=== PATIENT | female | born 1945 | race Caucasian/White ===

== ENCOUNTER 2016-09-27 17:55 | Inpatient (IN) | payer MEDICARE, OTHER ==
[~2016-09-27] VITALS: Ht 162.6 cm; Wt 56.7 kg
[~2016-09-27 17:55] MED LIST: ARIP10TA13 PO; ARIP20TA8 PO; BUPR150T8 PO; CALC-274 PO; CHOL10007 PO; CITA40TA5 PO; CLON1TAB3 PO; COPP2CAP PO; FERR-26 PO; GABA600T2 PO; HYDR-2672 PO; LAMO300T2 PO; LEVO100T5 PO; LEVO100V IV; MIRT30TA3 PO; MIRT30TA6 PO; MULT-35 PO; OMEP40CA5 PO; VANC125C10 PO
--- NOTE | 2016-09-27 21:42 | PHYS DOC ---
Past Medical History Past Medical History: Anxiety, Depression, Hypothyroid Additional Past Medical Histor: bowel obstruction Past Surgical History: Cholecystectomy, Gastric Bypass, Hysterectomy, Tonsillectomy Additional Past Surgical Histo: COLON PERF REPAIN. ADHEASION REPAIR, Alcohol Use: None Drug Use: None Adult General Chief Complaint Chief Complaint: ABDOMINAL PAIN HPI HPI Patient is a 71 year old female who presents with complaint of abdominal pain. Patient states she started getting worsening symptoms earlier today. Patient states that she had a bowel movement approximate 6:00 this morning that was loose. Patient states that since her gastric bypass surgery she has normally had problems with loose stools. Patient states that she normally goes 3-4 times a day but states that she has only had one bowel movement today and is started getting worsening pain. Patient states that her pain is generalized and sharp. Patient is concerned that she may have a bowel obstruction as she has had problems with bowel obstruction in the past. Patient denies any fevers or vomiting currently. Patient has not taken any medications to help with her symptoms. Review of Systems Review of Systems Constitutional: Fatigue, denies fevers [] Eyes: Denies change in visual acuity, redness, or eye pain [] HENT: Denies nasal congestion or sore throat [] Respiratory: Denies cough or shortness of breath [] Cardiovascular: Denies chest pain or edema [] GI: Abdominal pain, denies nausea, vomiting, bloody stools or diarrhea [] : Denies dysuria or hematuria [] Musculoskeletal: Denies back pain or joint pain [] Integument: Denies rash or skin lesions [] Neurologic: Denies headache, focal weakness or sensory changes [] Current Medications Current Medications Current Medications Medications (Trade) Dose Ordered Sig/Sumit Start Time Stop Time Status Last Admin Dose Admin Famotidine (Pepcid) 20 mg 1X ONCE 09/27/16 22:00 09/27/16 22:01 DC 09/27/16 21:54 20 MG Fentanyl Citrate 50 mcg 50 mcg PRN Q15MIN PRN 09/27/16 21:45 09/28/16 01:00 DC 09/27/16 22:52 50 MCG Info (Do NOT chart on this entry -- for MONITORING) 1 each PRN DAILY PRN 09/27/16 22:45 09/29/16 22:44 Iohexol (Omnipaque 240 Mg/ml) 30 ml 1X ONCE 09/27/16 23:00 09/27/16 23:01 DC 09/27/16 23:27 30 ML Ondansetron HCl (Zofran) 4 mg 1X ONCE 09/27/16 22:00 09/27/16 22:01 DC 09/27/16 21:54 4 MG Sodium Chloride (Iv Sodium Chloride 0.9% 1000ml Bag) 1,000 ml @ 1,000 mls/hr Q1H 09/27/16 22:00 09/27/16 22:59 DC 09/27/16 21:55 1,000 MLS/HR Allergies Allergies Allergies Coded Allergies Type Severity Reaction Last Updated Verified hydromorphone Allergy Intermediate Palpitations 10/14/13 Yes rosuvastatin Allergy Mild Nausea and Vomiting 10/14/13 Yes Physical Exam Physical Exam Constitutional: Alert, afebrile, appears in mild to moderate discomfort. [] HENT: Normocephalic, atraumatic, bilateral external ears normal, oropharynx moist, no oral exudates, nose normal. [] Eyes: PERRLA, EOMI, conjunctiva normal, no discharge. [] Neck: Normal range of motion, no tenderness, supple, no stridor. [] Cardiovascular:Heart rate regular rhythm, no murmur [] Lungs & Thorax: Bilateral breath sounds clear to auscultation [] Abdomen: Bowel sounds normal, soft, tenderness to palpation in all 4 quadrants, no masses, no pulsatile masses. [] Skin: Warm, dry, no erythema, no rash. [] Back: No tenderness, no CVA tenderness. [] Extremities: No tenderness, no cyanosis, no clubbing, ROM intact, no edema. [] Neurologic: Alert and oriented X 3, normal motor function, normal sensory function, no focal deficits noted. [] Current Patient Data Vital Signs Vital Signs Date Time Temp Pulse Resp B/P Pulse Ox O2 Delivery O2 Flow Rate FiO2 09/28/16 00:00 79 123/71 96 Room Air 09/27/16 18:38 98.2 20 98.2 Lab Values Laboratory Tests Test 09/27/16 19:55 White Blood Count 11.5x10^3/uL (4.0-11.0) H Red Blood Count 3.59x10^6/uL (3.50-5.40) Hemoglobin 11.5g/dL (12.0-15.5) L Hematocrit 38.1% (36.0-47.0) Mean Corpuscular Volume 106fL (79-100) H Mean Corpuscular Hemoglobin 32pg (25-35) Mean Corpuscular Hemoglobin Concent 30g/dL (31-37) L Red Cell Distribution Width 15.6% (11.5-14.5) H Platelet Count 204x10^3/uL (140-400) Neutrophils (%) (Auto) 89% (31-73) H Lymphocytes (%) (Auto) 7% (24-48) L Monocytes (%) (Auto) 5% (0-9) Eosinophils (%) (Auto) 0% (0-3) Basophils (%) (Auto) 0% (0-3) Neutrophils # (Auto) 10.2x10^3uL (1.8-7.7) H Lymphocytes # (Auto) 0.8x10^3/uL (1.0-4.8) L Monocytes # (Auto) 0.5x10^3/uL (0.0-1.1) Eosinophils # (Auto) 0.0x10^3/uL (0.0-0.7) Basophils # (Auto) 0.0x10^3/uL (0.0-0.2) Segmented Neutrophils % 84% (35-66) H Band Neutrophils % 3% (0-9) Lymphocytes % 8% (24-48) L Monocytes % 4% (0-10) Basophils % 1% (0-3) Platelet Estimate Adequate (ADEQUATE) Hypochromasia Slight Poikilocytosis Slight Anisocytosis Slight Macrocytosis Slight Crenated Cell Present Urine Collection Type Unknown Urine Color Yellow Urine Clarity Clear Urine pH 6.0 Urine Specific [place] 1.020 Urine Protein 30mg/dL (NEG-TRACE) Urine Glucose (UA) Negativemg/dL (NEG) Urine Ketones (Stick) Negativemg/dL (NEG) Urine Blood Negative (NEG) Urine Nitrite Negative (NEG) Urine Bilirubin Negative (NEG) Urine Urobilinogen Dipstick 0.2mg/dL (0.2 mg/dL) Urine Leukocyte Esterase Negative (NEG) Urine RBC 0/HPF (0-2) Urine WBC Occ/HPF (0-4) Urine Squamous Epithelial Cells Few/LPF Urine Amorphous Sediment Present/HPF Urine Bacteria Few/HPF (0-FEW) Urine Mucus Slight/LPF Sodium Level 141mmol/L (136-145) Potassium Level 4.9mmol/L (3.5-5.1) Chloride Level 112mmol/L (98-107) H Carbon Dioxide Level 19mmol/L (21-32) L Anion Gap 10 (6-14) Blood Urea Nitrogen 35mg/dL (7-20) H Creatinine 1.8mg/dL (0.6-1.0) H Estimated GFR (Cockcroft-Gault) 27.8 BUN/Creatinine Ratio 19 (6-20) Glucose Level 122mg/dL (70-99) H Calcium Level 8.6mg/dL (8.5-10.1) Total Bilirubin 0.5mg/dL (0.2-1.0) Aspartate Amino Transferase (AST) 43U/L (15-37) H Alanine Aminotransferase (ALT) 72U/L (14-59) H Alkaline Phosphatase 236U/L (46-116) H Total Protein 7.9g/dL (6.4-8.2) Albumin 4.0g/dL (3.4-5.0) Albumin/Globulin Ratio 1.0 (1.0-1.7) Lipase 92U/L (73-393) Laboratory Tests 09/27/16 19:55 Laboratory Tests 09/27/16 19:55 EKG EKG Not performed [] Radiology/Procedures Radiology/Procedures [facility] [address] [place] [address] IMAGING REPORT Signed PATIENT: BURAK KOCH ACCOUNT: [id number] : 1945 LOCATION: ER AGE: 71 SEX: F EXAM STATUS: REG ER ORD. PHYSICIAN: ANA HOWARD MD REASON: abdominal pain, history of gastric bypass surgery PROCEDURE: CT ABD PEL W/ORAL CONTRST ONLY PROCEDURE CT abdomen pelvis without contrast. HISTORY Severe abdominal pain since this morning. History of bowel obstruction. TECHNIQUE Helical CT imaging of the abdomen and pelvis is performed after oral contrast only due to elevated creatinine. PQRS: One or more the following individualized dose reduction techniques were utilized for the study: 1. Automated exposure control. 2. Adjustment of the mA and/or kV according to patient size. 3. Use of iterative reconstruction technique. COMPARISON CT abdomen pelvis without contrast May 01, 2015. FINDINGS Subcentimeter ground-glass nodules are seen in the medial left lower lobe. There is mild bilateral lower lobe atelectasis. Cardiac size normal. Calcified granulomas in the spleen. Cholecystectomy. Liver homogeneous. No obvious abnormality of the pancreas. Nodular left adrenal gland. No hydronephrosis. Slightly hyperdense small cortical lesion of the left kidney is stable, image 36. The abdominal aortic caliber is normal. Oral contrast distends the distal esophagus, identical to prior study. Postsurgical change of the stomach. Also similar to prior study there is oral contrast in the stomach and in dilated jejunum. Small bowel distal to the oral contrast demonstrates feces sign. A definite point of transition is not seen. Suture material of bowel anastomoses re-demonstrated in the abdomen. The rectosigmoid colon is dilated and fluid and air filled. There is no wall thickening. Anastomosis with the small bowel is not definitively seen. Urinary bladder is normal. Uterus surgically absent. Degenerative spondylosis of L2/L3. IMPRESSION 1. The bowel findings are nearly identical to the prior study. Oral contrast distends the distal esophagus and stomach and proximal small bowel. There is evidence of stasis in small bowel. Rectosigmoid colon is also dilated. There are multiple bowel anastomoses. Bowel obstruction or ileus are considerations. Small-bowel follow through may be useful. 2. Small ground-glass nodules in the medial left lower lobe may be infectious/inflammatory. Electronically signed by: Roberto Martinez MD (Sep 27, 2016 23:55:39) DICTATED and SIGNED BY: ROBERTO MARTINEZ MD DATE: 09/27/16 [id number] CC: ANA HOWARD MD; MICHELLE LILLY ~ [] Course & Med Decision Making Course & Med Decision Making Pertinent Labs and Imaging studies reviewed. (See chart for details) Patient started on IV fluids, fentanyl, and Zofran. Patient's CT scan shows similar appearance to previous episode of bowel ileus. Due to inability to tolerate oral intake, the patient will need to be admitted to the hospital for IV hydration and bowel rest. Patient admitted to Dr. Watson. A consult was placed to Dr. Hendrix of GI to follow patient in hospital. Dragon Disclaimer Dragon Disclaimer This electronic medical record was generated, in whole or in part, using a voice recognition dictation system. Departure Departure Impression: Primary Impression: Ileus Disposition: 09 ADMITTED INPATIENT Admitting Physician: Julián Watson Condition: STABLE Referrals: MICHELLE LILLY (PCP) ANA HOWARD MD Sep 27, 2016 21:42
[2016-09-27 21:49] LABS: BILIRUBIN,URINE NEGATIVE (NEG); GLUCOSE,URINE NEGATIVE (NEG); NITRITE,URINE NEGATIVE (NEG); PROTEIN,URINE 30 mg/dL (NEG-TRACE); UROBILINOGEN,URINE 0.2 mg/dL (0.2 mg/dL)
[2016-09-27 21:51] LABS: BASO % 0 % (0-3); EOS % 0 % (0-3); HEMATOCRIT 38.1 % (36.0-47.0); HEMOGLOBIN 11.5 g/dL (12.0-15.5); LYMPH # 0.8 x10^3/uL (1.0-4.8); LYMPH % 7 % (24-48); MEAN CORPUSCULAR HEMOGLOBIN 32 pg (25-35); MEAN CORPUSCULAR HGB CONC 30 g/dL (31-37); MEAN CORPUSCULAR VOLUME 106 fL (79-100); MONO % 5 % (0-9); NEUT % 89 % (31-73); PLATELET COUNT 204 x10^3/uL (140-400); RED BLOOD COUNT 3.59 x10^6/uL (3.50-5.40); RED CELL DISTRIBUTION WIDTH 15.6 % (11.5-14.5); WHITE BLOOD COUNT 11.5 x10^3/uL (4.0-11.0)
[2016-09-27] MEDS: FENTANYL PF 100 MCG/2 ML VIAL. IV PRN ×2 (21:53→22:52)
[2016-09-27 21:59] LABS: RBC,URINE 0 /HPF (0-2); WBC,URINE OCC /HPF (0-4)
[2016-09-27 22:00] LABS: BACTERIA,URINE FEW /HPF (0-FEW); SQUAMOUS EPITHELIAL CELL,UR FEW /LPF
[2016-09-27] MEDS ORDERED: FAMOTIDINE 20 MG/2 ML VIAL IVP ONE (22:00)
[2016-09-27] MEDS ORDERED: IV NORMAL SALINE 1000ML BAG 1,000 ML IV SCH (22:00)
[2016-09-27] MEDS ORDERED: ONDANSETRON PF 4 MG/2 ML VIAL. IV ONE (22:00)
[2016-09-27 22:06] LABS: CALCIUM 8.6 mg/dL (8.5-10.1); CREATININE 1.8 mg/dL (0.6-1.0); GFR 27.8; POTASSIUM 4.9 mmol/L (3.5-5.1)
[2016-09-27 22:12] LABS: TOTAL BILIRUBIN 0.5 mg/dL (0.2-1.0); TOTAL PROTEIN 7.9 g/dL (6.4-8.2)
[2016-09-27 22:18] LABS: % BASOS 1 % (0-3); ANISOCYTOSIS SLIGHT; CRENATED RBC PRESENT; HYPOCHROMIA SLIGHT; PLT ESTIMATE ADEQUATE (ADEQUATE); POIKILOCYTOSIS SLIGHT
[2016-09-27] MEDS ORDERED: CONTRAST GIVEN MC PRN (22:45)
[2016-09-27] MEDS ORDERED: IOHEXOL 240 MG/ML 50ML VIAL. PO ONE (23:00)
--- NOTE | 2016-09-27 23:56 | RAD ---
PROCEDURE CT abdomen pelvis without contrast. HISTORY Severe abdominal pain since this morning. History of bowel obstruction. TECHNIQUE Helical CT imaging of the abdomen and pelvis is performed after oral contrast only due to elevated creatinine. PQRS: One or more the following individualized dose reduction techniques were utilized for the study: 1. Automated exposure control. 2. Adjustment of the mA and/or kV according to patient size. 3. Use of iterative reconstruction technique. COMPARISON CT abdomen pelvis without contrast May 01, 2015. FINDINGS Subcentimeter ground-glass nodules are seen in the medial left lower lobe. There is mild bilateral lower lobe atelectasis. Cardiac size normal. Calcified granulomas in the spleen. Cholecystectomy. Liver homogeneous. No obvious abnormality of the pancreas. Nodular left adrenal gland. No hydronephrosis. Slightly hyperdense small cortical lesion of the left kidney is stable, image 36. The abdominal aortic caliber is normal. Oral contrast distends the distal esophagus, identical to prior study. Postsurgical change of the stomach. Also similar to prior study there is oral contrast in the stomach and in dilated jejunum. Small bowel distal to the oral contrast demonstrates feces sign. A definite point of transition is not seen. Suture material of bowel anastomoses re-demonstrated in the abdomen. The rectosigmoid colon is dilated and fluid and air filled. There is no wall thickening. Anastomosis with the small bowel is not definitively seen. Urinary bladder is normal. Uterus surgically absent. Degenerative spondylosis of L2/L3. IMPRESSION 1. The bowel findings are nearly identical to the prior study. Oral contrast distends the distal esophagus and stomach and proximal small bowel. There is evidence of stasis in small bowel. Rectosigmoid colon is also dilated. There are multiple bowel anastomoses. Bowel obstruction or ileus are considerations. Small-bowel follow through may be useful. 2. Small ground-glass nodules in the medial left lower lobe may be infectious/inflammatory. Electronically signed by: Roberto Martinez MD (Sep 27, 2016 23:55:39)
[2016-09-28] VITALS (7 sets, daily range): BP systolic 91–151; BP diastolic 55–93
[2016-09-28] MEDS: IV NORMAL SALINE 1000ML BAG 1,000 ML IV SCH ×3 (00:11→18:24)
[2016-09-28] MEDS ORDERED: ONDANSETRON PF 4 MG/2 ML VIAL. IV PRN (00:15)
[2016-09-28] MEDS ORDERED: ONDANSETRON PF 4 MG/2 ML VIAL. IV ONE (00:30)
--- NOTE | 2016-09-28 00:45 | ACF ---
Admission Forms Criteria ABDOMINAL PAIN Clinical Indications for Admission to Inpatient Care (Place 'X' for any and all applicable criteria): Admission is indicated for ANY ONE of the following(1)(2)(3)(4)(5): [X]I. Inpatient admission required rather than observation care (Also use Abdominal Pain: Observation Care, as appropriate) because of ANY ONE of the following: [ ]a) Severe pain requiring acute inpatient management [ ]b) Identification of etiology/finding that requires inpatient care (eg, aortic dissection, free air) [ ]c) Absent bowel sounds with complete ileus(6) [ ]d) Suspected toxic megacolon [ ]e) Severe electrolyte abnormalities requiring inpatient care [ ]f) High fever or infection requiring inpatient admission as indicated by ANY ONE of following(7)(8): [ ] i) Appropriate outpatient or observational care antimicrobial treatment unavailable, not effective, or not feasible [ ] ii) Documented bacteremia [ ] iii) Temperature > 104.9 degrees F (oral) [ ] iv) T >103.1 F (oral) or < 96.8 F(rectal) that does not respond to all emergency treatment measures [X]g) Signs of intestinal obstruction [B] [ ]h) Hemodynamic instability [ ]i) IV fluid to replace significant ongoing losses (greater than 3 L/m2 per day) (12)(13) [ ]j) Percutaneous or open drainage (eg, abscess, biliary tract ) procedures [ ]k) Parenteral nutrition regimen that must be implemented on inpatient basis [ ]l) Other condition,treatment or monitoring requiring inpatient admission. [ ]II. Peritoneal signs present [ ]III. Surgery needed that cannot be performed on an ambulatory basis. [ ]IV. Evaluation requires patient to not eat or drink for extended period ( eg, more than 24 hours). [ ]V. Contraindications and/or Inappropriate clinical situations for Observational Care in patients with abdominal pain, when ANY ONE of the following is required: [ ]a) Thorough evaluation is required to prevent catastrophic events due to delays in diagnosing (e.g.Mesenteric ischemia) 1,3 [ ]b) Patient with severe pathology or with chronic symptoms unlikely to improve in the ED stay (3) [ ]. General contraindications and/or Inappropriate clinical situations for Observational Care in patients with abdominal pain, when ANY ONE of the following is required: [ ]a) Prediction of prolongation of LOS based on ANY ONE of the following may be considered as a contraindication for observational care 2, 3, 4, 5, 6, 7, 8, 9, 10, 11 [ ]i) Age > 65 yrs. [ ]ii) Patient arriving by ambulance [ ]iii) Patient with high acuity [ ]iv) Patient requiring vital sign monitoring [ ]v) Patient on IV medication [ ]b) Systolic blood pressures 180mmHg 3,12 [ ]c) Patient with altered mental status including delirium and other alteration of consciousness, (3) [ ]d) Patient whose discharge disposition will be to a prison home or rehabilitation home should not be managed in Emergency Department Observation Unit. CMS rule requires 3 days hospital stay before such placement.3,13 [ ]e) Patient with failure to thrive due to broad array of etiologies 3,16,17 [ ]f) Inability to ambulate 3,14 Extended stay beyond goal length of stay may be needed for(2)(3): [ ]a) Persistent abdominal pain with suspected intra-abdominal process [ ]b) Diagnosed condition requiring continued stay (e.g., pancreatitis, complicated diverticulitis) [ ]c) Surgery (e.g., colectomy) The original [facility] content created by [employer] has been revised. The portions of the content which have been revised are identified through the use of italic text or in bold, and [facility] [employer] has neither reviewed nor approved the modified material.All other unmodified content is copyright [employer]. Please see references footnoted in the original [facility] edition 2016 Admission Criteria Met?: Yes CARLY RODRIGUEZ Sep 28, 2016 00:45
[2016-09-28] MEDS: FENTANYL PF 100 MCG/2 ML VIAL. IV PRN ×2 (00:58→05:13)
[2016-09-28] MEDS: CLONAZEPAM 1 MG TABLET. PO SCH ×3 (02:29→22:43)
[2016-09-28] MEDS: MIRTAZAPINE 15 MG TABLET PO SCH ×2 (02:29→22:44)
[2016-09-28] MEDS: GABAPENTIN 400 MG CAPSULE. PO SCH ×2 (02:29→22:43)
--- NOTE | 2016-09-28 07:56 | RAD ---
Acute abdominal series to include a PA chest radiograph 09/27/2016 Clinical History: Severe abdominal pain since earlier in the day. A PA digital radiograph of the chest was obtained. Supine and erect AP digital radiographs of the abdomen/pelvis were obtained. Comparison study is dated 05/02/2015. Surgical clips are seen within the upper abdomen and right axilla. The cardiac silhouette is normal in size. The thoracic aorta is minimally tortuous. No acute pulmonary infiltrate is seen. No pleural effusion or pneumothorax is noted. Mild air distention of both small and large bowel loops is seen. These findings are nonspecific. A surgical clip is seen within the pelvis. Calcifications are seen within the pelvis consistent with phleboliths. There is no evidence of free air. Degenerative changes are seen involving the thoracic and lumbar spine and both hips. Impression: Nonspecific bowel gas pattern.
--- NOTE | 2016-09-28 08:51 | PDOC2 ---
GI CONSULT Reason For Consult: Ileus HPI: HPI: 71 y/o female w/ complicated GI/surgical history including Radha-en-Y gastric bypass, laparotomy x 2 for SBO, laparotomy for colon perforation (w/ ileosigmoid anastomosis), cholecystectomy, hysterectomy, PATRIZIA, and previous PEG placement by radiology at [facility] (denies J tube). Has been doing well for a little over a year w/o obstructive symptoms and has done well w/o PEG tube. Awoke yesterday morning around 6:00 a.m. w/ upper abdominal pain. Normally has 4-5 loose stools daily, had ~2 yesterday. Pain worsened/spread diffusely, similar to previous bowel obstructions, came to ER and was admitted. Has nausea w/o vomiting. Pain currently improved, about 3/10. No flatus/stool today. Additional h/o GERD controlled w/ PPI BID. No NSAID use. Last EGD and colonoscopy within 1 year at w/ some sort of dilation performed (note h/o stomal narrowing w/ dilation on last EGD in our records by Dr. Sauer). Labs: WBC 11.5, Hgb 11.5, Cr 1.8, AST 43, ALT 72, Alk Phos 236. CT A/P suggestive of bowel obstruction vs ileus. PMH: PMH: GERD, C Diff, hypothyroidism, melanoma, anxiety/depression, Radha-en-Y gastric bypass, stomal ulcer/narrowing, laparotomy x 2 for SBO, laparotomy for colon perforation, PEG placement/removal, cholecystectomy, hysterectomy, adhesiolysis , tonsillectomy FH: Family History: No pertinent hx Social History: Smoke: No ALCOHOL: none Drugs: None ROS: GEN: Denies fevers, chills, sweats HEENT: Denies blurred vision, sore throat CV: Denies chest pain RESP: Denies shortness of air, cough GI: Per HPI : Denies hematuria, dysuria ENDO: Denies weight changes NEURO: Denies confusion, dizziness MSK: Denies weakness, joint pain/swelling SKIN: Denies jaundice, pruritus VItals: Vitals: Vital Signs Date Time Temp Pulse Resp B/P Pulse Ox O2 Delivery O2 Flow Rate FiO2 09/28/16 07:00 98.2 72 16 134/78 96 Room Air 98.2 Labs: Labs: Laboratory Tests Test 09/27/16 19:55 White Blood Count 11.5x10^3/uL (4.0-11.0) Red Blood Count 3.59x10^6/uL (3.50-5.40) Hemoglobin 11.5g/dL (12.0-15.5) Hematocrit 38.1% (36.0-47.0) Mean Corpuscular Volume 106fL (79-100) Mean Corpuscular Hemoglobin 32pg (25-35) Mean Corpuscular Hemoglobin Concent 30g/dL (31-37) Red Cell Distribution Width 15.6% (11.5-14.5) Platelet Count 204x10^3/uL (140-400) Neutrophils (%) (Auto) 89% (31-73) Lymphocytes (%) (Auto) 7% (24-48) Monocytes (%) (Auto) 5% (0-9) Eosinophils (%) (Auto) 0% (0-3) Basophils (%) (Auto) 0% (0-3) Neutrophils # (Auto) 10.2x10^3uL (1.8-7.7) Lymphocytes # (Auto) 0.8x10^3/uL (1.0-4.8) Monocytes # (Auto) 0.5x10^3/uL (0.0-1.1) Eosinophils # (Auto) 0.0x10^3/uL (0.0-0.7) Basophils # (Auto) 0.0x10^3/uL (0.0-0.2) Segmented Neutrophils % 84% (35-66) Band Neutrophils % 3% (0-9) Lymphocytes % 8% (24-48) Monocytes % 4% (0-10) Basophils % 1% (0-3) Platelet Estimate Adequate (ADEQUATE) Hypochromasia Slight Poikilocytosis Slight Anisocytosis Slight Macrocytosis Slight Crenated Cell Present Urine Collection Type Unknown Urine Color Yellow Urine Clarity Clear Urine pH 6.0 Urine Specific [place] 1.020 Urine Protein 30mg/dL (NEG-TRACE) Urine Glucose (UA) Negativemg/dL (NEG) Urine Ketones (Stick) Negativemg/dL (NEG) Urine Blood Negative (NEG) Urine Nitrite Negative (NEG) Urine Bilirubin Negative (NEG) Urine Urobilinogen Dipstick 0.2mg/dL (0.2 mg/dL) Urine Leukocyte Esterase Negative (NEG) Urine RBC 0/HPF (0-2) Urine WBC Occ/HPF (0-4) Urine Squamous Epithelial Cells Few/LPF Urine Amorphous Sediment Present/HPF Urine Bacteria Few/HPF (0-FEW) Urine Mucus Slight/LPF Sodium Level 141mmol/L (136-145) Potassium Level 4.9mmol/L (3.5-5.1) Chloride Level 112mmol/L (98-107) Carbon Dioxide Level 19mmol/L (21-32) Anion Gap 10 (6-14) Blood Urea Nitrogen 35mg/dL (7-20) Creatinine 1.8mg/dL (0.6-1.0) Estimated GFR (Cockcroft-Gault) 27.8 BUN/Creatinine Ratio 19 (6-20) Glucose Level 122mg/dL (70-99) Calcium Level 8.6mg/dL (8.5-10.1) Total Bilirubin 0.5mg/dL (0.2-1.0) Aspartate Amino Transf (AST/SGOT) 43U/L (15-37) Alanine Aminotransferase (ALT/SGPT) 72U/L (14-59) Alkaline Phosphatase 236U/L (46-116) Total Protein 7.9g/dL (6.4-8.2) Albumin 4.0g/dL (3.4-5.0) Albumin/Globulin Ratio 1.0 (1.0-1.7) Lipase 92U/L (73-393) Allergies: Coded Allergies: hydromorphone (Verified Allergy, Intermediate, Palpitations, 10/14/13) rosuvastatin (Verified Allergy, Mild, Nausea and Vomiting, 10/14/13) Medications: Current Medications Medications (Trade) Dose Ordered Sig/Sumit Route PRN Reason Start Time Stop Time Status Last Admin Dose Admin Fentanyl Citrate 50 mcg 50 mcg PRN Q15MIN PRN IV PAIN GREATER THAN 3/10 09/27/16 21:45 09/28/16 01:00 DC 09/27/16 22:52 Sodium Chloride (Iv Sodium Chloride 0.9% 1000ml Bag) 1,000 ml @ 1,000 mls/hr Q1H IV 09/27/16 22:00 09/27/16 22:59 DC 09/27/16 21:55 Ondansetron HCl (Zofran) 4 mg 1X ONCE IV 09/27/16 22:00 09/27/16 22:01 DC 09/27/16 21:54 Famotidine (Pepcid) 20 mg 1X ONCE IVP 09/27/16 22:00 09/27/16 22:01 DC 09/27/16 21:54 Iohexol (Omnipaque 240 Mg/ml) 30 ml 1X ONCE PO 09/27/16 23:00 09/27/16 23:01 DC 09/27/16 23:27 Ondansetron HCl (Zofran) 4 mg 1X ONCE IV 09/28/16 00:30 09/28/16 00:31 DC 09/28/16 00:41 Fentanyl Citrate 50 mcg 50 mcg PRN Q2HR PRN IV SEVERE PAIN 09/28/16 00:15 09/29/16 00:14 09/28/16 05:13 Sodium Chloride (Iv Sodium Chloride 0.9% 1000ml Bag) 1,000 ml @ 100 mls/hr Q10H IV 09/28/16 00:11 09/29/16 00:10 09/28/16 05:06 Clonazepam (Klonopin) 1 mg BID PO 09/28/16 02:30 09/28/16 02:29 Gabapentin (Neurontin) 1,200 mg QHS PO 09/28/16 02:30 09/28/16 02:29 Imaging: Imaging: Acute Abd Series Impression: Nonspecific bowel gas pattern. CT A/P w/ oral contrast IMPRESSION 1. The bowel findings are nearly identical to the prior study. Oral contrast distends the distal esophagus and stomach and proximal small bowel. There is evidence of stasis in small bowel. Rectosigmoid colon is also dilated. There are multiple bowel anastomoses. Bowel obstruction or ileus are considerations. Small-bowel follow through may be useful. 2. Small ground-glass nodules in the medial left lower lobe may be infectious/ inflammatory. PE: GEN: NAD HEENT: Atraumatic, PERRL LUNGS: CTAB HEART: RRR +murm ABD: diffusely tender, ?BS EXTREMITY: No edema SKIN: No rashes, no jaundice NEURO/PSYCH: A & O 3 A/P: A/P: Abd pain, nausea -sudden onset yesterday morning, similar to previous bowel obstructions -CT: ileus vs obstruction H/o multiple abd surgeries -Radha-en-Y gastric bypass, laparotomies for SBOs, laparotomy for colon perforation w/ ileosigmoid anastomosis, previous PEG placement -additionally cholecystectomy, hysterectomy, PATRIZIA GERD -controlled w/ BID PPI, last EGD at within 1 year w/ dilation CRC screen -last colonoscopy @ within 1 year -- NPO. NG tube if needed. Other per Dr. Hendrix. ALEK DUNCAN Sep 28, 2016 08:51
[2016-09-28] MEDS: PANTOPRAZOLE IV PUSH 40 MG VIAL. IVP SCH ×2 (11:20→22:47)
--- NOTE | 2016-09-28 13:10 | HP ---
ADMIT DATE: 09/28/2016 CHIEF COMPLAINT: Abdominal pain. HISTORY OF PRESENT ILLNESS: The patient is a pleasant, 71-year-old female, who has had multiple abdominal surgeries. Her biggest surgery was gastric bypass, since then she has had chronic issues with intermittent small-bowel obstructions. Once again, she presents with abdominal pain. Imaging studies are showing an ileus versus small-bowel obstruction. She has been admitted to the medical floor. PAST MEDICAL HISTORY: Previous obesity, but she has had gastric bypass, chronic pain; GERD and neuropathy. ALLERGIES: HYDROMORPHONE AND ROSUVASTATIN. FAMILY HISTORY: Coronary artery disease. SOCIAL HISTORY: She does not drink, smoke or take drugs. MEDICATIONS: Reviewed, please refer to the MRAD. REVIEW OF SYSTEMS: GENERAL: No history of weight change, weakness or fevers. SKIN: No bruising, hair changes or rashes. EYES: No blurred, double or loss of vision. NOSE AND THROAT: No history of nosebleeds, hoarseness or sore throat. HEART: No history of palpitations, chest pain or shortness of breath on exertion. LUNGS: Denies cough, hemoptysis, wheezing or shortness of breath. GASTROINTESTINAL: She complains of abdominal pain, although it is little better today. GENITOURINARY: No history of frequency, urgency, hesitancy or nocturia. NEUROLOGIC: Denies history of numbness, tingling, tremor or weakness. PSYCHIATRIC: No history of panic, anxiety or depression. ENDOCRINE: No history of heat or cold intolerance, polyuria or polydipsia. EXTREMITIES: Denies muscle weakness, joint pain, pain on walking or stiffness. PHYSICAL EXAMINATION: VITAL SIGNS: Temperature afebrile, pulse 68, respirations 18, blood pressure 120/74. GENERAL: She is alert, cooperative. HEART: Normal S1, S2. LUNGS: Clear. ABDOMEN: Soft, positive bowel sounds, a little tender in the epigastrium. There are multiple scars from previous surgeries. ENDOCRINE: No thyromegaly. LYMPHATICS: No cervical nodes. HEMATOPOIETIC: No bruising. LABORATORY DATA: White count 11, hemoglobin 11, platelets 204. Sodium 141, potassium 4.9, chloride 112, bicarbonate 19, BUN 35, creatinine 1.8, glucose 122, alkaline phosphatase little high at 236, ALT 72, AST 43. ASSESSMENT AND PLAN: Ileus versus small-bowel obstruction in a middle-aged female, who has had gastric bypass and multiple other surgeries, for now given IV fluids. Cardiac monitoring, p.chayito Valentin, we will try to continue her home meds if she can tolerate ____ n.p.o. except for ice chips, PT, OT consult GI ____. Prognosis guarded. MARYANN DUBOIS DO DR: TOYIN/chris JOB#: [id number] / [id number]
--- NOTE | 2016-09-28 15:36 | PDOC2 ---
CONSULT Date of Consult Date of Consult DATE: 09/28/16 TIME: 15:30 Reason for Consult Reason for Consult: abd pain Identification/Chief Complaint Chief Complaint abd pain Source Source: Patient History of Present Illness Reason for Visit: 71 yo female developed epigastric pain yesterday which became diffuse and worse. Denies vomiting but nausea. Usually she has 4-5 BMs per day but only 2 yesterday. She felt bloated and abd was firm. She states she feels much better now without pain and abd is no longer firm. She has had 2 large BM's in the last 3 hours. Past Medical History Cardiovascular: No pertinent hx Pulmonary: No pertinent hx GI: Gastritis Heme/Onc: No pertinent hx Hepatobiliary: No pertinent hx Psych: No pertinent hx Rheumatologic: No pertinent hx Infectious disease: No pertinent hx ENT: No pertinent hx Renal/: No pertinent hx Endocrine: No pertinent hx Dermatology: No pertinent hx Past Surgical History Past Surgical History: Other (gastric by pass, multiple surgery for SBO) Family History Family History: No Significant Social History No ALCOHOL: none Drugs: None Lives: with Family Current Problem List Problem List Problems Medical Problems: (1) Ileus Status: Acute Current Medications Current Medications Current Medications Fentanyl Citrate 50 mcg 50 mcg PRN Q15MIN PRN IV PAIN GREATER THAN 3/10 Last administered on 09/27/16 22:52; Start 09/27/16 at 21:45; Stop 09/28/16 at 01:00 ; Status DC Sodium Chloride (Iv Sodium Chloride 0.9% 1000ml Bag) 1,000 ml @ 1,000 mls/hr Q1H IV Last administered on 09/27/16 21:55; Start 09/27/16 at 22:00; Stop 06/03 at 22:59; Status DC Ondansetron HCl (Zofran) 4 mg 1X ONCE IV Last administered on 09/27/16 21:54 ; Start 09/27/16 at 22:00; Stop 09/27/16 at 22:01; Status DC Famotidine (Pepcid) 20 mg 1X ONCE IVP Last administered on 09/27/16 21:54; Start 09/27/16 at 22:00; Stop 09/27/16 at 22:01; Status DC Iohexol (Omnipaque 240 Mg/ml) 30 ml 1X ONCE PO Last administered on 09/27/16 23:27; Start 09/27/16 at 23:00; Stop 09/27/16 at 23:01; Status DC Info (Do NOT chart on this entry -- for MONITORING) 1 each PRN DAILY PRN MC SEE COMMENTS; Start 09/27/16 at 22:45; Stop 09/29/16 at 22:44 Ondansetron HCl (Zofran) 4 mg 1X ONCE IV Last administered on 09/28/16 00:41 ; Start 09/28/16 at 00:30; Stop 09/28/16 at 00:31; Status DC Ondansetron HCl (Zofran) 4 mg PRN Q8HRS PRN IV NAUSEA/VOMITING; Start 09/28/16 at 00:15; Stop 09/29/16 at 00:14 Fentanyl Citrate 50 mcg 50 mcg PRN Q2HR PRN IV SEVERE PAIN Last administered on 09/28/16 05:13; Start 09/28/16 at 00:15; Stop 09/29/16 at 00:14 Sodium Chloride (Iv Sodium Chloride 0.9% 1000ml Bag) 1,000 ml @ 100 mls/hr Q10H IV Last administered on 09/28/16 05:06; Start 09/28/16 at 00:11; Stop at 00:10 Clonazepam (Klonopin) 1 mg BID PO Last administered on 09/28/16 09:36; Start 09/28/16 at 02:30 Gabapentin (Neurontin) 1,200 mg QHS PO Last administered on 09/28/16 02:29; Start 09/28/16 at 02:30 Mirtazapine (Remeron) 30 mg QHS PO ; Start 09/28/16 at 02:30 Pantoprazole Sodium (Protonix Vial) 40 mg BID IVP Last administered on 11:20; Start 09/28/16 at 10:00 Active Scripts Active Reported Levothyroxine Sodium 100 Mcg Tablet 100 Mcg PO DAILYAC Abilify (Aripiprazole) 10 Mg Tablet 1 Tab PO HS Wellbutrin Sr (Bupropion Hcl) 150 Mg Tablet.er 150 Mg PO DAILY Omeprazole 40 Mg Capsule.dr 40 Mg PO BID Gabapentin 600 Mg Tablet 1,200 Mg PO BID Mirtazapine 30 Mg Tablet 30 Mg PO HS Clonazepam 1 Mg Tablet 1 Mg PO BID Citalopram Hbr (Citalopram Hydrobromide) 40 Mg Tablet 40 Mg PO DAILY Allergies Allergies: Coded Allergies: hydromorphone (Verified Allergy, Intermediate, Palpitations, 10/14/13) rosuvastatin (Verified Allergy, Mild, Nausea and Vomiting, 10/14/13) ROS Gastrointestinal: Yes Abdominal Pain, Yes Nausea Physical Exam General: Alert, Oriented X3, Cooperative, No acute distress HEENT: Atraumatic, PERRLA, EOMI Lungs: Clear to auscultation, Normal air movement Heart: Regular rate, No murmurs Abdomen: Normal bowel sounds, Soft, No tenderness Extremities: No edema Skin: No significant lesion Neuro: Normal speech Vitals VITALS Vital Signs Date Time Temp Pulse Resp B/P Pulse Ox O2 Delivery O2 Flow Rate FiO2 09/28/16 10:56 98.6 73 16 103/60 96 Room Air 98.6 Labs Labs Laboratory Tests Test 09/27/16 19:55 White Blood Count 11.5x10^3/uL (4.0-11.0) Red Blood Count 3.59x10^6/uL (3.50-5.40) Hemoglobin 11.5g/dL (12.0-15.5) Hematocrit 38.1% (36.0-47.0) Mean Corpuscular Volume 106fL (79-100) Mean Corpuscular Hemoglobin 32pg (25-35) Mean Corpuscular Hemoglobin Concent 30g/dL (31-37) Red Cell Distribution Width 15.6% (11.5-14.5) Platelet Count 204x10^3/uL (140-400) Neutrophils (%) (Auto) 89% (31-73) Lymphocytes (%) (Auto) 7% (24-48) Monocytes (%) (Auto) 5% (0-9) Eosinophils (%) (Auto) 0% (0-3) Basophils (%) (Auto) 0% (0-3) Neutrophils # (Auto) 10.2x10^3uL (1.8-7.7) Lymphocytes # (Auto) 0.8x10^3/uL (1.0-4.8) Monocytes # (Auto) 0.5x10^3/uL (0.0-1.1) Eosinophils # (Auto) 0.0x10^3/uL (0.0-0.7) Basophils # (Auto) 0.0x10^3/uL (0.0-0.2) Segmented Neutrophils % 84% (35-66) Band Neutrophils % 3% (0-9) Lymphocytes % 8% (24-48) Monocytes % 4% (0-10) Basophils % 1% (0-3) Platelet Estimate Adequate (ADEQUATE) Hypochromasia Slight Poikilocytosis Slight Anisocytosis Slight Macrocytosis Slight Crenated Cell Present Urine Collection Type Unknown Urine Color Yellow Urine Clarity Clear Urine pH 6.0 Urine Specific [place] 1.020 Urine Protein 30mg/dL (NEG-TRACE) Urine Glucose (UA) Negativemg/dL (NEG) Urine Ketones (Stick) Negativemg/dL (NEG) Urine Blood Negative (NEG) Urine Nitrite Negative (NEG) Urine Bilirubin Negative (NEG) Urine Urobilinogen Dipstick 0.2mg/dL (0.2 mg/dL) Urine Leukocyte Esterase Negative (NEG) Urine RBC 0/HPF (0-2) Urine WBC Occ/HPF (0-4) Urine Squamous Epithelial Cells Few/LPF Urine Amorphous Sediment Present/HPF Urine Bacteria Few/HPF (0-FEW) Urine Mucus Slight/LPF Sodium Level 141mmol/L (136-145) Potassium Level 4.9mmol/L (3.5-5.1) Chloride Level 112mmol/L (98-107) Carbon Dioxide Level 19mmol/L (21-32) Anion Gap 10 (6-14) Blood Urea Nitrogen 35mg/dL (7-20) Creatinine 1.8mg/dL (0.6-1.0) Estimated GFR (Cockcroft-Gault) 27.8 BUN/Creatinine Ratio 19 (6-20) Glucose Level 122mg/dL (70-99) Calcium Level 8.6mg/dL (8.5-10.1) Total Bilirubin 0.5mg/dL (0.2-1.0) Aspartate Amino Transf (AST/SGOT) 43U/L (15-37) Alanine Aminotransferase (ALT/SGPT) 72U/L (14-59) Alkaline Phosphatase 236U/L (46-116) Total Protein 7.9g/dL (6.4-8.2) Albumin 4.0g/dL (3.4-5.0) Albumin/Globulin Ratio 1.0 (1.0-1.7) Lipase 92U/L (73-393) Laboratory Tests Test 09/27/16 19:55 White Blood Count 11.5x10^3/uL (4.0-11.0) Red Blood Count 3.59x10^6/uL (3.50-5.40) Hemoglobin 11.5g/dL (12.0-15.5) Hematocrit 38.1% (36.0-47.0) Mean Corpuscular Volume 106fL (79-100) Mean Corpuscular Hemoglobin 32pg (25-35) Mean Corpuscular Hemoglobin Concent 30g/dL (31-37) Red Cell Distribution Width 15.6% (11.5-14.5) Platelet Count 204x10^3/uL (140-400) Neutrophils (%) (Auto) 89% (31-73) Lymphocytes (%) (Auto) 7% (24-48) Monocytes (%) (Auto) 5% (0-9) Eosinophils (%) (Auto) 0% (0-3) Basophils (%) (Auto) 0% (0-3) Neutrophils # (Auto) 10.2x10^3uL (1.8-7.7) Lymphocytes # (Auto) 0.8x10^3/uL (1.0-4.8) Monocytes # (Auto) 0.5x10^3/uL (0.0-1.1) Eosinophils # (Auto) 0.0x10^3/uL (0.0-0.7) Basophils # (Auto) 0.0x10^3/uL (0.0-0.2) Segmented Neutrophils % 84% (35-66) Band Neutrophils % 3% (0-9) Lymphocytes % 8% (24-48) Monocytes % 4% (0-10) Basophils % 1% (0-3) Platelet Estimate Adequate (ADEQUATE) Hypochromasia Slight Poikilocytosis Slight Anisocytosis Slight Macrocytosis Slight Crenated Cell Present Urine Collection Type Unknown Urine Color Yellow Urine Clarity Clear Urine pH 6.0 Urine Specific [place] 1.020 Urine Protein 30mg/dL (NEG-TRACE) Urine Glucose (UA) Negativemg/dL (NEG) Urine Ketones (Stick) Negativemg/dL (NEG) Urine Blood Negative (NEG) Urine Nitrite Negative (NEG) Urine Bilirubin Negative (NEG) Urine Urobilinogen Dipstick 0.2mg/dL (0.2 mg/dL) Urine Leukocyte Esterase Negative (NEG) Urine RBC 0/HPF (0-2) Urine WBC Occ/HPF (0-4) Urine Squamous Epithelial Cells Few/LPF Urine Amorphous Sediment Present/HPF Urine Bacteria Few/HPF (0-FEW) Urine Mucus Slight/LPF Sodium Level 141mmol/L (136-145) Potassium Level 4.9mmol/L (3.5-5.1) Chloride Level 112mmol/L (98-107) Carbon Dioxide Level 19mmol/L (21-32) Anion Gap 10 (6-14) Blood Urea Nitrogen 35mg/dL (7-20) Creatinine 1.8mg/dL (0.6-1.0) Estimated GFR (Cockcroft-Gault) 27.8 BUN/Creatinine Ratio 19 (6-20) Glucose Level 122mg/dL (70-99) Calcium Level 8.6mg/dL (8.5-10.1) Total Bilirubin 0.5mg/dL (0.2-1.0) Aspartate Amino Transf (AST/SGOT) 43U/L (15-37) Alanine Aminotransferase (ALT/SGPT) 72U/L (14-59) Alkaline Phosphatase 236U/L (46-116) Total Protein 7.9g/dL (6.4-8.2) Albumin 4.0g/dL (3.4-5.0) Albumin/Globulin Ratio 1.0 (1.0-1.7) Lipase 92U/L (73-393) Images Images CT of the abdomen showed dilated loops of small bowel Assessment/Plan Assessment/Plan Ileus Appears to have resolved with two large BM's If she continues to improve overnight would advance diet DANIELE COLE MD Sep 28, 2016 15:36
[2016-09-28] MEDS ORDERED: ACETAMINOPHEN 325 MG TABLET. PO PRN (18:15)
[2016-09-28] MEDS: METRONIDAZOLE 500 MG TABLET. PO SCH (22:44)
[2016-09-29 03:00] VITALS: BP 86/46
[2016-09-29] MEDS: METRONIDAZOLE 500 MG TABLET. PO SCH ×2 (05:59→13:58)
[2016-09-29 06:28] LABS: BASO % 1 % (0-3); EOS % 1 % (0-3); HEMATOCRIT 28.1 % (36.0-47.0); HEMOGLOBIN 8.7 g/dL (12.0-15.5); LYMPH # 1.6 x10^3/uL (1.0-4.8); LYMPH % 34 % (24-48); MEAN CORPUSCULAR HEMOGLOBIN 33 pg (25-35); MEAN CORPUSCULAR HGB CONC 31 g/dL (31-37); MEAN CORPUSCULAR VOLUME 106 fL (79-100); MONO % 10 % (0-9); NEUT % 55 % (31-73); PLATELET COUNT 123 x10^3/uL (140-400); RED BLOOD COUNT 2.65 x10^6/uL (3.50-5.40); RED CELL DISTRIBUTION WIDTH 15.5 % (11.5-14.5); WHITE BLOOD COUNT 4.7 x10^3/uL (4.0-11.0)
[2016-09-29 06:38] LABS: CALCIUM 7.6 mg/dL (8.5-10.1); CREATININE 1.6 mg/dL (0.6-1.0); GFR 31.9
[2016-09-29 07:00] VITALS: BP 98/50
--- NOTE | 2016-09-29 08:49 | PDOC ---
SURGICAL PROGRESS NOTE Subjective Doing well, hungry. Denies pain Vital Signs Vital Signs Date Time Temp Pulse Resp B/P Pulse Ox O2 Delivery O2 Flow Rate FiO2 09/29/16 07:00 97.0 68 16 98/50 99 Room Air 97.0 I&O Intake and Output 09/29/16 07:00 Intake Total 300 ml Output Total 600 ml Balance -300 ml Intake Oral 300 ml Output Stool Total 600 ml # Voids 5 PATIENT HAS A MARKS: No General: Alert, Oriented X3, Cooperative, No acute distress Abdomen: Normal bowel sounds, Soft, No tenderness Labs Laboratory Tests Test 09/27/16 19:55 09/28/16 08:50 09/29/16 05:45 White Blood Count 11.5x10^3/uL (4.0-11.0) 4.7x10^3/uL (4.0-11.0) Red Blood Count 3.59x10^6/uL (3.50-5.40) 2.65x10^6/uL (3.50-5.40) Hemoglobin 11.5g/dL (12.0-15.5) 8.7g/dL (12.0-15.5) Hematocrit 38.1% (36.0-47.0) 28.1% (36.0-47.0) Mean Corpuscular Volume 106fL (79-100) 106fL (79-100) Mean Corpuscular Hemoglobin 32pg (25-35) 33pg (25-35) Mean Corpuscular Hemoglobin Concent 30g/dL (31-37) 31g/dL (31-37) Red Cell Distribution Width 15.6% (11.5-14.5) 15.5% (11.5-14.5) Platelet Count 204x10^3/uL (140-400) 123x10^3/uL (140-400) Neutrophils (%) (Auto) 89% (31-73) 55% (31-73) Lymphocytes (%) (Auto) 7% (24-48) 34% (24-48) Monocytes (%) (Auto) 5% (0-9) 10% (0-9) Eosinophils (%) (Auto) 0% (0-3) 1% (0-3) Basophils (%) (Auto) 0% (0-3) 1% (0-3) Neutrophils # (Auto) 10.2x10^3uL (1.8-7.7) 2.6x10^3uL (1.8-7.7) Lymphocytes # (Auto) 0.8x10^3/uL (1.0-4.8) 1.6x10^3/uL (1.0-4.8) Monocytes # (Auto) 0.5x10^3/uL (0.0-1.1) 0.5x10^3/uL (0.0-1.1) Eosinophils # (Auto) 0.0x10^3/uL (0.0-0.7) 0.0x10^3/uL (0.0-0.7) Basophils # (Auto) 0.0x10^3/uL (0.0-0.2) 0.0x10^3/uL (0.0-0.2) Segmented Neutrophils % 84% (35-66) Band Neutrophils % 3% (0-9) Lymphocytes % 8% (24-48) Monocytes % 4% (0-10) Basophils % 1% (0-3) Platelet Estimate Adequate (ADEQUATE) Hypochromasia Slight Poikilocytosis Slight Anisocytosis Slight Macrocytosis Slight Crenated Cell Present Urine Collection Type Unknown Urine Color Yellow Urine Clarity Clear Urine pH 6.0 Urine Specific [place] 1.020 Urine Protein 30mg/dL (NEG-TRACE) Urine Glucose (UA) Negativemg/dL (NEG) Urine Ketones (Stick) Negativemg/dL (NEG) Urine Blood Negative (NEG) Urine Nitrite Negative (NEG) Urine Bilirubin Negative (NEG) Urine Urobilinogen Dipstick 0.2mg/dL (0.2 mg/dL) Urine Leukocyte Esterase Negative (NEG) Urine RBC 0/HPF (0-2) Urine WBC Occ/HPF (0-4) Urine Squamous Epithelial Cells Few/LPF Urine Amorphous Sediment Present/HPF Urine Bacteria Few/HPF (0-FEW) Urine Mucus Slight/LPF Sodium Level 141mmol/L (136-145) 147mmol/L (136-145) Potassium Level 4.9mmol/L (3.5-5.1) 4.0mmol/L (3.5-5.1) Chloride Level 112mmol/L (98-107) 118mmol/L (98-107) Carbon Dioxide Level 19mmol/L (21-32) 15mmol/L (21-32) Anion Gap 10 (6-14) 14 (6-14) Blood Urea Nitrogen 35mg/dL (7-20) 40mg/dL (7-20) Creatinine 1.8mg/dL (0.6-1.0) 1.6mg/dL (0.6-1.0) Estimated GFR (Cockcroft-Gault) 27.8 31.9 BUN/Creatinine Ratio 19 (6-20) Glucose Level 122mg/dL (70-99) 54mg/dL (70-99) Calcium Level 8.6mg/dL (8.5-10.1) 7.6mg/dL (8.5-10.1) Total Bilirubin 0.5mg/dL (0.2-1.0) Aspartate Amino Transf (AST/SGOT) 43U/L (15-37) Alanine Aminotransferase (ALT/SGPT) 72U/L (14-59) Alkaline Phosphatase 236U/L (46-116) Total Protein 7.9g/dL (6.4-8.2) Albumin 4.0g/dL (3.4-5.0) Albumin/Globulin Ratio 1.0 (1.0-1.7) Lipase 92U/L (73-393) Clostridium difficile Toxin (PCR) Positive (Negative) Laboratory Tests Test 09/28/16 08:50 09/29/16 05:45 Clostridium difficile Toxin (PCR) Positive (Negative) White Blood Count 4.7x10^3/uL (4.0-11.0) Red Blood Count 2.65x10^6/uL (3.50-5.40) Hemoglobin 8.7g/dL (12.0-15.5) Hematocrit 28.1% (36.0-47.0) Mean Corpuscular Volume 106fL (79-100) Mean Corpuscular Hemoglobin 33pg (25-35) Mean Corpuscular Hemoglobin Concent 31g/dL (31-37) Red Cell Distribution Width 15.5% (11.5-14.5) Platelet Count 123x10^3/uL (140-400) Neutrophils (%) (Auto) 55% (31-73) Lymphocytes (%) (Auto) 34% (24-48) Monocytes (%) (Auto) 10% (0-9) Eosinophils (%) (Auto) 1% (0-3) Basophils (%) (Auto) 1% (0-3) Neutrophils # (Auto) 2.6x10^3uL (1.8-7.7) Lymphocytes # (Auto) 1.6x10^3/uL (1.0-4.8) Monocytes # (Auto) 0.5x10^3/uL (0.0-1.1) Eosinophils # (Auto) 0.0x10^3/uL (0.0-0.7) Basophils # (Auto) 0.0x10^3/uL (0.0-0.2) Sodium Level 147mmol/L (136-145) Potassium Level 4.0mmol/L (3.5-5.1) Chloride Level 118mmol/L (98-107) Carbon Dioxide Level 15mmol/L (21-32) Anion Gap 14 (6-14) Blood Urea Nitrogen 40mg/dL (7-20) Creatinine 1.6mg/dL (0.6-1.0) Estimated GFR (Cockcroft-Gault) 31.9 Glucose Level 54mg/dL (70-99) Calcium Level 7.6mg/dL (8.5-10.1) Problem List Problems Medical Problems: (1) Ileus Status: Acute Assessment/Plan Resolved PSBO. Tested positive for CDif, although BM's are unchanged. Adv diet CDif per IM No Surgical indications Problems: DANIELE COLE MD Sep 29, 2016 08:49
[2016-09-29] MEDS: CLONAZEPAM 1 MG TABLET. PO SCH (09:36)
[2016-09-29] MEDS: PANTOPRAZOLE IV PUSH 40 MG VIAL. IVP SCH (09:36)
[2016-09-29 11:04] VITALS: BP 106/51
--- NOTE | 2016-09-29 13:09 | PDOC ---
PROGRESS NOTES Chief Complaint Chief Complaint cc:abdominal pain A/P ileus resolving. C diff diarrhea Dehydration Plan PO Flagyl iv hydration labs reviewed, Cr better, advance diet no diarrhea, today no symptoms. anticipated DC today if pt able to tolerate diet well. Vitals Vitals Vital Signs Date Time Temp Pulse Resp B/P Pulse Ox O2 Delivery O2 Flow Rate FiO2 09/29/16 11:04 96.4 73 18 106/51 98 Room Air 96.4 Physical Exam General: Alert, Oriented X3, Cooperative, No acute distress Heart: Regular rate, Normal S1, Normal S2, No murmurs Lungs: Clear Abdomen: Normal bowel sounds, Soft, No tenderness Extremities: No edema Skin: No significant lesion Labs LABS Laboratory Tests Test 09/29/16 05:45 White Blood Count 4.7x10^3/uL (4.0-11.0) Red Blood Count 2.65x10^6/uL (3.50-5.40) Hemoglobin 8.7g/dL (12.0-15.5) Hematocrit 28.1% (36.0-47.0) Mean Corpuscular Volume 106fL (79-100) Mean Corpuscular Hemoglobin 33pg (25-35) Mean Corpuscular Hemoglobin Concent 31g/dL (31-37) Red Cell Distribution Width 15.5% (11.5-14.5) Platelet Count 123x10^3/uL (140-400) Neutrophils (%) (Auto) 55% (31-73) Lymphocytes (%) (Auto) 34% (24-48) Monocytes (%) (Auto) 10% (0-9) Eosinophils (%) (Auto) 1% (0-3) Basophils (%) (Auto) 1% (0-3) Neutrophils # (Auto) 2.6x10^3uL (1.8-7.7) Lymphocytes # (Auto) 1.6x10^3/uL (1.0-4.8) Monocytes # (Auto) 0.5x10^3/uL (0.0-1.1) Eosinophils # (Auto) 0.0x10^3/uL (0.0-0.7) Basophils # (Auto) 0.0x10^3/uL (0.0-0.2) Sodium Level 147mmol/L (136-145) Potassium Level 4.0mmol/L (3.5-5.1) Chloride Level 118mmol/L (98-107) Carbon Dioxide Level 15mmol/L (21-32) Anion Gap 14 (6-14) Blood Urea Nitrogen 40mg/dL (7-20) Creatinine 1.6mg/dL (0.6-1.0) Estimated GFR (Cockcroft-Gault) 31.9 Glucose Level 54mg/dL (70-99) Calcium Level 7.6mg/dL (8.5-10.1) Assessment and Plan Assessmemt and Plan Problems Medical Problems: (1) Ileus Status: Acute Problems: Comment Review of Relevant I have reviewed the following items isreal (where applicable) has been applied. Labs Laboratory Tests Test 09/27/16 19:55 09/28/16 08:50 09/29/16 05:45 White Blood Count 11.5x10^3/uL (4.0-11.0) 4.7x10^3/uL (4.0-11.0) Red Blood Count 3.59x10^6/uL (3.50-5.40) 2.65x10^6/uL (3.50-5.40) Hemoglobin 11.5g/dL (12.0-15.5) 8.7g/dL (12.0-15.5) Hematocrit 38.1% (36.0-47.0) 28.1% (36.0-47.0) Mean Corpuscular Volume 106fL (79-100) 106fL (79-100) Mean Corpuscular Hemoglobin 32pg (25-35) 33pg (25-35) Mean Corpuscular Hemoglobin Concent 30g/dL (31-37) 31g/dL (31-37) Red Cell Distribution Width 15.6% (11.5-14.5) 15.5% (11.5-14.5) Platelet Count 204x10^3/uL (140-400) 123x10^3/uL (140-400) Neutrophils (%) (Auto) 89% (31-73) 55% (31-73) Lymphocytes (%) (Auto) 7% (24-48) 34% (24-48) Monocytes (%) (Auto) 5% (0-9) 10% (0-9) Eosinophils (%) (Auto) 0% (0-3) 1% (0-3) Basophils (%) (Auto) 0% (0-3) 1% (0-3) Neutrophils # (Auto) 10.2x10^3uL (1.8-7.7) 2.6x10^3uL (1.8-7.7) Lymphocytes # (Auto) 0.8x10^3/uL (1.0-4.8) 1.6x10^3/uL (1.0-4.8) Monocytes # (Auto) 0.5x10^3/uL (0.0-1.1) 0.5x10^3/uL (0.0-1.1) Eosinophils # (Auto) 0.0x10^3/uL (0.0-0.7) 0.0x10^3/uL (0.0-0.7) Basophils # (Auto) 0.0x10^3/uL (0.0-0.2) 0.0x10^3/uL (0.0-0.2) Segmented Neutrophils % 84% (35-66) Band Neutrophils % 3% (0-9) Lymphocytes % 8% (24-48) Monocytes % 4% (0-10) Basophils % 1% (0-3) Platelet Estimate Adequate (ADEQUATE) Hypochromasia Slight Poikilocytosis Slight Anisocytosis Slight Macrocytosis Slight Crenated Cell Present Urine Collection Type Unknown Urine Color Yellow Urine Clarity Clear Urine pH 6.0 Urine Specific [place] 1.020 Urine Protein 30mg/dL (NEG-TRACE) Urine Glucose (UA) Negativemg/dL (NEG) Urine Ketones (Stick) Negativemg/dL (NEG) Urine Blood Negative (NEG) Urine Nitrite Negative (NEG) Urine Bilirubin Negative (NEG) Urine Urobilinogen Dipstick 0.2mg/dL (0.2 mg/dL) Urine Leukocyte Esterase Negative (NEG) Urine RBC 0/HPF (0-2) Urine WBC Occ/HPF (0-4) Urine Squamous Epithelial Cells Few/LPF Urine Amorphous Sediment Present/HPF Urine Bacteria Few/HPF (0-FEW) Urine Mucus Slight/LPF Sodium Level 141mmol/L (136-145) 147mmol/L (136-145) Potassium Level 4.9mmol/L (3.5-5.1) 4.0mmol/L (3.5-5.1) Chloride Level 112mmol/L (98-107) 118mmol/L (98-107) Carbon Dioxide Level 19mmol/L (21-32) 15mmol/L (21-32) Anion Gap 10 (6-14) 14 (6-14) Blood Urea Nitrogen 35mg/dL (7-20) 40mg/dL (7-20) Creatinine 1.8mg/dL (0.6-1.0) 1.6mg/dL (0.6-1.0) Estimated GFR (Cockcroft-Gault) 27.8 31.9 BUN/Creatinine Ratio 19 (6-20) Glucose Level 122mg/dL (70-99) 54mg/dL (70-99) Calcium Level 8.6mg/dL (8.5-10.1) 7.6mg/dL (8.5-10.1) Total Bilirubin 0.5mg/dL (0.2-1.0) Aspartate Amino Transf (AST/SGOT) 43U/L (15-37) Alanine Aminotransferase (ALT/SGPT) 72U/L (14-59) Alkaline Phosphatase 236U/L (46-116) Total Protein 7.9g/dL (6.4-8.2) Albumin 4.0g/dL (3.4-5.0) Albumin/Globulin Ratio 1.0 (1.0-1.7) Lipase 92U/L (73-393) Clostridium difficile Toxin (PCR) Positive (Negative) Laboratory Tests Test 09/29/16 05:45 White Blood Count 4.7x10^3/uL (4.0-11.0) Red Blood Count 2.65x10^6/uL (3.50-5.40) Hemoglobin 8.7g/dL (12.0-15.5) Hematocrit 28.1% (36.0-47.0) Mean Corpuscular Volume 106fL (79-100) Mean Corpuscular Hemoglobin 33pg (25-35) Mean Corpuscular Hemoglobin Concent 31g/dL (31-37) Red Cell Distribution Width 15.5% (11.5-14.5) Platelet Count 123x10^3/uL (140-400) Neutrophils (%) (Auto) 55% (31-73) Lymphocytes (%) (Auto) 34% (24-48) Monocytes (%) (Auto) 10% (0-9) Eosinophils (%) (Auto) 1% (0-3) Basophils (%) (Auto) 1% (0-3) Neutrophils # (Auto) 2.6x10^3uL (1.8-7.7) Lymphocytes # (Auto) 1.6x10^3/uL (1.0-4.8) Monocytes # (Auto) 0.5x10^3/uL (0.0-1.1) Eosinophils # (Auto) 0.0x10^3/uL (0.0-0.7) Basophils # (Auto) 0.0x10^3/uL (0.0-0.2) Sodium Level 147mmol/L (136-145) Potassium Level 4.0mmol/L (3.5-5.1) Chloride Level 118mmol/L (98-107) Carbon Dioxide Level 15mmol/L (21-32) Anion Gap 14 (6-14) Blood Urea Nitrogen 40mg/dL (7-20) Creatinine 1.6mg/dL (0.6-1.0) Estimated GFR (Cockcroft-Gault) 31.9 Glucose Level 54mg/dL (70-99) Calcium Level 7.6mg/dL (8.5-10.1) Medications Current Medications Fentanyl Citrate 50 mcg 50 mcg PRN Q15MIN PRN IV PAIN GREATER THAN 3/10 Last administered on 09/27/16 22:52; Start 09/27/16 at 21:45; Stop 09/28/16 at 01:00 ; Status DC Sodium Chloride (Iv Sodium Chloride 0.9% 1000ml Bag) 1,000 ml @ 1,000 mls/hr Q1H IV Last administered on 09/27/16 21:55; Start 09/27/16 at 22:00; Stop 06/03 at 22:59; Status DC Ondansetron HCl (Zofran) 4 mg 1X ONCE IV Last administered on 09/27/16 21:54 ; Start 09/27/16 at 22:00; Stop 09/27/16 at 22:01; Status DC Famotidine (Pepcid) 20 mg 1X ONCE IVP Last administered on 09/27/16 21:54; Start 09/27/16 at 22:00; Stop 09/27/16 at 22:01; Status DC Iohexol (Omnipaque 240 Mg/ml) 30 ml 1X ONCE PO Last administered on 09/27/16 23:27; Start 09/27/16 at 23:00; Stop 09/27/16 at 23:01; Status DC Info (Do NOT chart on this entry -- for MONITORING) 1 each PRN DAILY PRN MC SEE COMMENTS; Start 09/27/16 at 22:45; Stop 09/29/16 at 22:44 Ondansetron HCl (Zofran) 4 mg 1X ONCE IV Last administered on 09/28/16 00:41 ; Start 09/28/16 at 00:30; Stop 09/28/16 at 00:31; Status DC Ondansetron HCl (Zofran) 4 mg PRN Q8HRS PRN IV NAUSEA/VOMITING; Start 09/28/16 at 00:15; Stop 09/29/16 at 00:14; Status DC Fentanyl Citrate 50 mcg 50 mcg PRN Q2HR PRN IV SEVERE PAIN Last administered on 09/28/16 05:13; Start 09/28/16 at 00:15; Stop 09/29/16 at 00:14; Status DC Sodium Chloride (Iv Sodium Chloride 0.9% 1000ml Bag) 1,000 ml @ 100 mls/hr Q10H IV Last administered on 09/28/16 18:24; Start 09/28/16 at 00:11; Stop at 00:10; Status DC Clonazepam (Klonopin) 1 mg BID PO Last administered on 09/29/16 09:36; Start 09/28/16 at 02:30 Gabapentin (Neurontin) 1,200 mg QHS PO Last administered on 09/28/16 22:43; Start 09/28/16 at 02:30 Mirtazapine (Remeron) 30 mg QHS PO Last administered on 09/28/16 22:44; Start 09/28/16 at 02:30 Pantoprazole Sodium (Protonix Vial) 40 mg BID IVP Last administered on 09:36; Start 09/28/16 at 10:00 Acetaminophen (Tylenol) 325 mg PRN Q6HRS PRN PO MILD PAIN / TEMP; Start at 18:15 Metronidazole 500 mg 500 mg Q8HRS PO Last administered on 09/29/16 05:59; Start 09/28/16 at 22:00 Sodium Chloride (Iv Sodium Chloride 0.9% 1000ml Bag) 1,000 ml @ 1,000 mls/hr 1X ONCE IV ; Start 09/29/16 at 13:15; Stop 09/29/16 at 14:14; Status UNV Active Scripts Active Reported Levothyroxine Sodium 100 Mcg Tablet 100 Mcg PO DAILYAC Abilify (Aripiprazole) 10 Mg Tablet 1 Tab PO HS Wellbutrin Sr (Bupropion Hcl) 150 Mg Tablet.er 150 Mg PO DAILY Omeprazole 40 Mg Capsule.dr 40 Mg PO BID Gabapentin 600 Mg Tablet 1,200 Mg PO BID Mirtazapine 30 Mg Tablet 30 Mg PO HS Clonazepam 1 Mg Tablet 1 Mg PO BID Citalopram Hbr (Citalopram Hydrobromide) 40 Mg Tablet 40 Mg PO DAILY Vitals/I & O Vital Sign - Last 24 Hours 09/28/16 09/28/16 09/28/16 09/28/16 15:00 19:00 20:00 23:00 Temp 98.0 98.3 98.4 98.0 98.3 98.4 Pulse 74 73 70 Resp 16 16 16 B/P 98/59 91/55 104/62 Pulse Ox 97 98 97 O2 Delivery Room Air Room Air 09/29/16 09/29/16 09/29/16 09/29/16 03:00 07:00 08:00 11:04 Temp 98.6 97.0 96.4 98.6 97.0 96.4 Pulse 70 68 73 Resp 16 16 18 B/P 86/46 98/50 106/51 Pulse Ox 94 99 98 O2 Delivery Room Air Room Air Room Air Intake and Output 09/28/16 09/28/16 09/29/16 14:59 22:59 06:59 Intake Total 300 ml Output Total 400 ml 200 ml Balance -100 ml -200 ml MARTÍN GARCIA MD Sep 29, 2016 13:09
[2016-09-29] MEDS ORDERED: IV NORMAL SALINE 1000ML BAG 1,000 ML IV ONE (13:15)
[2016-09-29] MEDS ORDERED: Metronidazole PO (13:18)
[2016-09-29 15:26] VITALS: BP 96/48
--- NOTE | 2016-09-29 17:47 | PDOC ---
G I PROGRESS NOTE Subjective Much better. Abdominal pain pretty much gone. Tolerating regular food. Physical Exam Lungs clear. RRR Abdomen soft, not tender nor distended. Review of Relevant I have reviewed the following items isreal (where applicable) has been applied. Labs Laboratory Tests Test 09/27/16 19:55 09/28/16 08:50 09/29/16 05:45 White Blood Count 11.5x10^3/uL (4.0-11.0) 4.7x10^3/uL (4.0-11.0) Red Blood Count 3.59x10^6/uL (3.50-5.40) 2.65x10^6/uL (3.50-5.40) Hemoglobin 11.5g/dL (12.0-15.5) 8.7g/dL (12.0-15.5) Hematocrit 38.1% (36.0-47.0) 28.1% (36.0-47.0) Mean Corpuscular Volume 106fL (79-100) 106fL (79-100) Mean Corpuscular Hemoglobin 32pg (25-35) 33pg (25-35) Mean Corpuscular Hemoglobin Concent 30g/dL (31-37) 31g/dL (31-37) Red Cell Distribution Width 15.6% (11.5-14.5) 15.5% (11.5-14.5) Platelet Count 204x10^3/uL (140-400) 123x10^3/uL (140-400) Neutrophils (%) (Auto) 89% (31-73) 55% (31-73) Lymphocytes (%) (Auto) 7% (24-48) 34% (24-48) Monocytes (%) (Auto) 5% (0-9) 10% (0-9) Eosinophils (%) (Auto) 0% (0-3) 1% (0-3) Basophils (%) (Auto) 0% (0-3) 1% (0-3) Neutrophils # (Auto) 10.2x10^3uL (1.8-7.7) 2.6x10^3uL (1.8-7.7) Lymphocytes # (Auto) 0.8x10^3/uL (1.0-4.8) 1.6x10^3/uL (1.0-4.8) Monocytes # (Auto) 0.5x10^3/uL (0.0-1.1) 0.5x10^3/uL (0.0-1.1) Eosinophils # (Auto) 0.0x10^3/uL (0.0-0.7) 0.0x10^3/uL (0.0-0.7) Basophils # (Auto) 0.0x10^3/uL (0.0-0.2) 0.0x10^3/uL (0.0-0.2) Segmented Neutrophils % 84% (35-66) Band Neutrophils % 3% (0-9) Lymphocytes % 8% (24-48) Monocytes % 4% (0-10) Basophils % 1% (0-3) Platelet Estimate Adequate (ADEQUATE) Hypochromasia Slight Poikilocytosis Slight Anisocytosis Slight Macrocytosis Slight Crenated Cell Present Urine Collection Type Unknown Urine Color Yellow Urine Clarity Clear Urine pH 6.0 Urine Specific [place] 1.020 Urine Protein 30mg/dL (NEG-TRACE) Urine Glucose (UA) Negativemg/dL (NEG) Urine Ketones (Stick) Negativemg/dL (NEG) Urine Blood Negative (NEG) Urine Nitrite Negative (NEG) Urine Bilirubin Negative (NEG) Urine Urobilinogen Dipstick 0.2mg/dL (0.2 mg/dL) Urine Leukocyte Esterase Negative (NEG) Urine RBC 0/HPF (0-2) Urine WBC Occ/HPF (0-4) Urine Squamous Epithelial Cells Few/LPF Urine Amorphous Sediment Present/HPF Urine Bacteria Few/HPF (0-FEW) Urine Mucus Slight/LPF Sodium Level 141mmol/L (136-145) 147mmol/L (136-145) Potassium Level 4.9mmol/L (3.5-5.1) 4.0mmol/L (3.5-5.1) Chloride Level 112mmol/L (98-107) 118mmol/L (98-107) Carbon Dioxide Level 19mmol/L (21-32) 15mmol/L (21-32) Anion Gap 10 (6-14) 14 (6-14) Blood Urea Nitrogen 35mg/dL (7-20) 40mg/dL (7-20) Creatinine 1.8mg/dL (0.6-1.0) 1.6mg/dL (0.6-1.0) Estimated GFR (Cockcroft-Gault) 27.8 31.9 BUN/Creatinine Ratio 19 (6-20) Glucose Level 122mg/dL (70-99) 54mg/dL (70-99) Calcium Level 8.6mg/dL (8.5-10.1) 7.6mg/dL (8.5-10.1) Total Bilirubin 0.5mg/dL (0.2-1.0) Aspartate Amino Transf (AST/SGOT) 43U/L (15-37) Alanine Aminotransferase (ALT/SGPT) 72U/L (14-59) Alkaline Phosphatase 236U/L (46-116) Total Protein 7.9g/dL (6.4-8.2) Albumin 4.0g/dL (3.4-5.0) Albumin/Globulin Ratio 1.0 (1.0-1.7) Lipase 92U/L (73-393) Clostridium difficile Toxin (PCR) Positive (Negative) Laboratory Tests Test 09/29/16 05:45 White Blood Count 4.7x10^3/uL (4.0-11.0) Red Blood Count 2.65x10^6/uL (3.50-5.40) Hemoglobin 8.7g/dL (12.0-15.5) Hematocrit 28.1% (36.0-47.0) Mean Corpuscular Volume 106fL (79-100) Mean Corpuscular Hemoglobin 33pg (25-35) Mean Corpuscular Hemoglobin Concent 31g/dL (31-37) Red Cell Distribution Width 15.5% (11.5-14.5) Platelet Count 123x10^3/uL (140-400) Neutrophils (%) (Auto) 55% (31-73) Lymphocytes (%) (Auto) 34% (24-48) Monocytes (%) (Auto) 10% (0-9) Eosinophils (%) (Auto) 1% (0-3) Basophils (%) (Auto) 1% (0-3) Neutrophils # (Auto) 2.6x10^3uL (1.8-7.7) Lymphocytes # (Auto) 1.6x10^3/uL (1.0-4.8) Monocytes # (Auto) 0.5x10^3/uL (0.0-1.1) Eosinophils # (Auto) 0.0x10^3/uL (0.0-0.7) Basophils # (Auto) 0.0x10^3/uL (0.0-0.2) Sodium Level 147mmol/L (136-145) Potassium Level 4.0mmol/L (3.5-5.1) Chloride Level 118mmol/L (98-107) Carbon Dioxide Level 15mmol/L (21-32) Anion Gap 14 (6-14) Blood Urea Nitrogen 40mg/dL (7-20) Creatinine 1.6mg/dL (0.6-1.0) Estimated GFR (Cockcroft-Gault) 31.9 Glucose Level 54mg/dL (70-99) Calcium Level 7.6mg/dL (8.5-10.1) Medications Current Medications Fentanyl Citrate 50 mcg 50 mcg PRN Q15MIN PRN IV PAIN GREATER THAN 3/10 Last administered on 09/27/16 22:52; Start 09/27/16 at 21:45; Stop 09/28/16 at 01:00 ; Status DC Sodium Chloride (Iv Sodium Chloride 0.9% 1000ml Bag) 1,000 ml @ 1,000 mls/hr Q1H IV Last administered on 09/27/16 21:55; Start 09/27/16 at 22:00; Stop 06/03 at 22:59; Status DC Ondansetron HCl (Zofran) 4 mg 1X ONCE IV Last administered on 09/27/16 21:54 ; Start 09/27/16 at 22:00; Stop 09/27/16 at 22:01; Status DC Famotidine (Pepcid) 20 mg 1X ONCE IVP Last administered on 09/27/16 21:54; Start 09/27/16 at 22:00; Stop 09/27/16 at 22:01; Status DC Iohexol (Omnipaque 240 Mg/ml) 30 ml 1X ONCE PO Last administered on 09/27/16 23:27; Start 09/27/16 at 23:00; Stop 09/27/16 at 23:01; Status DC Info (Do NOT chart on this entry -- for MONITORING) 1 each PRN DAILY PRN MC SEE COMMENTS; Start 09/27/16 at 22:45; Stop 09/29/16 at 22:44 Ondansetron HCl (Zofran) 4 mg 1X ONCE IV Last administered on 09/28/16 00:41 ; Start 09/28/16 at 00:30; Stop 09/28/16 at 00:31; Status DC Ondansetron HCl (Zofran) 4 mg PRN Q8HRS PRN IV NAUSEA/VOMITING; Start 09/28/16 at 00:15; Stop 09/29/16 at 00:14; Status DC Fentanyl Citrate 50 mcg 50 mcg PRN Q2HR PRN IV SEVERE PAIN Last administered on 09/28/16 05:13; Start 09/28/16 at 00:15; Stop 09/29/16 at 00:14; Status DC Sodium Chloride (Iv Sodium Chloride 0.9% 1000ml Bag) 1,000 ml @ 100 mls/hr Q10H IV Last administered on 09/28/16 18:24; Start 09/28/16 at 00:11; Stop at 00:10; Status DC Clonazepam (Klonopin) 1 mg BID PO Last administered on 09/29/16 09:36; Start 09/28/16 at 02:30 Gabapentin (Neurontin) 1,200 mg QHS PO Last administered on 09/28/16 22:43; Start 09/28/16 at 02:30 Mirtazapine (Remeron) 30 mg QHS PO Last administered on 09/28/16 22:44; Start 09/28/16 at 02:30 Pantoprazole Sodium (Protonix Vial) 40 mg BID IVP Last administered on 09:36; Start 09/28/16 at 10:00 Acetaminophen (Tylenol) 325 mg PRN Q6HRS PRN PO MILD PAIN / TEMP; Start at 18:15 Metronidazole 500 mg 500 mg Q8HRS PO Last administered on 09/29/16 13:58; Start 09/28/16 at 22:00 Sodium Chloride (Iv Sodium Chloride 0.9% 1000ml Bag) 1,000 ml @ 1,000 mls/hr 1X ONCE IV Last administered on 09/29/16t 13:58; Start 09/29/16 at 13:15; Stop 09/29/16 at 14:14; Status DC Active Scripts Active [Metronidazole] 500 MG Tablet 500 Mg PO Q8HRS Reported Levothyroxine Sodium 100 Mcg Tablet 100 Mcg PO DAILYAC Abilify (Aripiprazole) 10 Mg Tablet 1 Tab PO HS Wellbutrin Sr (Bupropion Hcl) 150 Mg Tablet.er 150 Mg PO DAILY Omeprazole 40 Mg Capsule.dr 40 Mg PO BID Gabapentin 600 Mg Tablet 1,200 Mg PO BID Mirtazapine 30 Mg Tablet 30 Mg PO HS Clonazepam 1 Mg Tablet 1 Mg PO BID Citalopram Hbr (Citalopram Hydrobromide) 40 Mg Tablet 40 Mg PO DAILY Vitals/I & O Vital Sign - Last 24 Hours 09/28/16 09/28/16 09/28/16 09/29/16 19:00 20:00 23:00 03:00 Temp 98.3 98.4 98.6 98.3 98.4 98.6 Pulse 73 70 70 Resp 16 16 16 B/P 91/55 104/62 86/46 Pulse Ox 98 97 94 O2 Delivery Room Air 09/29/16 09/29/16 09/29/16 09/29/16 07:00 08:00 11:04 15:26 Temp 97.0 96.4 97.6 97.0 96.4 97.6 Pulse 68 73 73 Resp 16 18 18 B/P 98/50 106/51 96/48 Pulse Ox 99 98 97 O2 Delivery Room Air Room Air Room Air Room Air Intake and Output 09/28/16 09/28/16 09/29/16 15:00 23:00 07:00 Intake Total 300 ml Output Total 400 ml 200 ml Balance -100 ml -200 ml Problem List Problems Medical Problems: (1) Ileus Status: Acute Assessment Probably transient SBO, clinically resolved. Plan of Care: Continue current Tx, Mgmt Plan of Care Note If continues OK, OK to dismiss at your discretion from GI standpoint. ISAAC LAWSON MD Sep 29, 2016 17:46
== END 2016-09-29 19:35 | disposition home or self-care (01) | DRG 372 ==
LOC: ER 17:55 → 5 SOUTH 09-28 00:05
PROVIDERS: ADMIT Internal Medicine; ATTEND Internal Medicine
DX: A04.7 Enterocolitis due to Clostridium difficile (principal); K56.7 Ileus, unspecified; K56.60 Unspecified intestinal obstruction; E03.9 Hypothyroidism, unspecified; F32.9 Major depressive disorder, single episode, unspecified; F41.9 Anxiety disorder, unspecified; G62.9 Polyneuropathy, unspecified; G89.29 Other chronic pain; K21.9 Gastro-esophageal reflux disease without esophagitis; E86.0 Dehydration; Z82.49 Family history of ischemic heart disease and other diseases of the circulatory system; Z98.84 Bariatric surgery status; Z90.710 Acquired absence of both cervix and uterus; Z90.49 Acquired absence of other specified parts of digestive tract; Z79.899 Other long term (current) drug therapy; Z88.8 Allergy status to other drugs, medicaments and biological substances
CPT/HCPCS: 36415; 74022; 74176; 80048; 80053; 81001; 83690; 85007; 85027; 87324; 96361; 96374; 96375; 96376; C9113; J2405; J3010; J7030; Q9966; S0028; 99285-25

== ENCOUNTER 2016-12-08 23:07 | Emergency (ER) | payer MEDICARE, OTHER ==
[~2016-12-08] VITALS: Ht 162.6 cm; Wt 56.7 kg
[~2016-12-08 23:07] MED LIST changes: -ARIP10TA13 PO; +ARIP10TA9 PO; +ARIP20TA5 PO; -ARIP20TA8 PO; +CHOL100014 PO; -CHOL10007 PO; -HYDR-2672 PO; +HYDR-2766 PO; -LEVO100V IV; +LEVO100V5 IV; +Metronidazole PO
[2016-12-08 23:43] LABS: BASO % 1 % (0-3); EOS % 1 % (0-3); HEMATOCRIT 37.4 % (36.0-47.0); HEMOGLOBIN 11.8 g/dL (12.0-15.5); LYMPH # 1.6 x10^3/uL (1.0-4.8); LYMPH % 16 % (24-48); MEAN CORPUSCULAR HEMOGLOBIN 32 pg (25-35); MEAN CORPUSCULAR HGB CONC 32 g/dL (31-37); MEAN CORPUSCULAR VOLUME 100 fL (79-100); MONO % 6 % (0-9); NEUT % 77 % (31-73); PLATELET COUNT 238 x10^3/uL (140-400); RED BLOOD COUNT 3.75 x10^6/uL (3.50-5.40); RED CELL DISTRIBUTION WIDTH 13.8 % (11.5-14.5); WHITE BLOOD COUNT 9.8 x10^3/uL (4.0-11.0)
[2016-12-08] MEDS ORDERED: IV NORMAL SALINE 1000ML BAG 1,000 ML IV SCH (23:45)
[2016-12-08] MEDS ORDERED: ONDANSETRON PF 4 MG/2 ML VIAL. IV ONE (23:45)
[2016-12-08] MEDS: fentaNYL PF VIAL 100 MCG/2 ML VIAL IV PRN (23:48)
[2016-12-08 23:51] LABS: CALCIUM 8.8 mg/dL (8.5-10.1); CREATININE 1.4 mg/dL (0.6-1.0); GFR 37.2; POTASSIUM 4.8 mmol/L (3.5-5.1)
[2016-12-08 23:57] LABS: ALBUMIN 3.8 g/dL (3.4-5.0); DIRECT BILIRUBIN 0.1 mg/dL (0.0-0.2); TOTAL BILIRUBIN 0.4 mg/dL (0.2-1.0); TOTAL PROTEIN 7.5 g/dL (6.4-8.2)
[2016-12-09] MEDS ORDERED: CONTRAST GIVEN MC PRN
[2016-12-09] MEDS ORDERED: IOHEXOL 240 MG/ML 50ML VIAL. PO ONE
[2016-12-09] MEDS: fentaNYL PF VIAL 100 MCG/2 ML VIAL IV PRN ×3 (00:41→03:37)
[2016-12-09] MEDS ORDERED: ONDANSETRON PF 4 MG/2 ML VIAL. IV ONE ×3 (00:45→01:45)
--- NOTE | 2016-12-09 01:22 | RAD ---
INDICATION: nausea, vomiting and abd pain today COMPARISON: 09/27/2016 TECHNIQUE: Axial CT images were obtained through the abdomen and pelvis without intravenous contrast. Limited assessment of solid organ structures and vasculature secondary to lack of intravenous contrast. One or more of the following individualized dose reduction techniques were utilized for this examination: 1. Automated exposure control; 2. Adjustment of the mA and/or kV according to patient size; 3. Use of iterative reconstruction technique. FINDINGS: [id number] hiatal hernia. Calcific atherosclerosis. Postcholecystectomy changes without definite intrahepatic bile duct dilation. Pancreas is poorly evaluated without intravenous contrast. Splenic calcified granulomas. Low-attenuation lesion superior aspect of the spleen, 19 mm again seen. Nodular thickening of left adrenal gland measuring approximately 12 x 19 mm. Suspected exophytic nodular density posterior aspect left kidney, 1 cm. No hydronephrosis. Prominent right extrarenal pelvis again seen. Urinary bladder largely decompressed. Multiple anastomoses seen in the bowel. Moderate stool seen in the remaining portions of colon. There is distention of the distal esophagus and some of the loops of small bowel in the left side of the abdomen. Degenerative changes spine. IMPRESSION: 1. Distention of several loops of small bowel in the left side of the abdomen. Given the presence of this finding region of obstruction or ileus is within the differential. 2. Low-attenuation lesion superior aspect of the spleen similar to prior. Incompletely evaluated on noncontrast imaging. If further evaluation is desired focused ultrasound or MRI could further evaluate. There is also suspected left renal lesion but can be further evaluated on MRI or ultrasound. 3. Nodular thickening left adrenal gland. Nonspecific appearance on this examination. If the patient has history or risk factors for neoplasm and further evaluation is desired MRI could better evaluate. This is a commonly seen finding. Electronically signed by: Donny Chong MD (12/09/2016 1:18 AM)
[2016-12-09] MEDS ORDERED: FAMOTIDINE 20 MG/2 ML VIAL IVP ONE (01:45)
--- NOTE | 2016-12-09 01:45 | PHYS DOC ---
Past Medical History Past Medical History: Anxiety, Depression, Hypertension Additional Past Medical Histor: bowel obstruction, CKD Past Surgical History: Cholecystectomy, Gastric Bypass, Hysterectomy, Tonsillectomy Additional Past Surgical Histo: COLON PERF REPAIN. ADHEASION REPAIR, Alcohol Use: None Drug Use: None Adult General Chief Complaint Chief Complaint: ABDOMINAL PAIN HPI HPI Patient is a 71 year old female with history of gastric bypass who presents with general abdominal pain associated with nausea and vomiting that started this evening similar to prior episodes of small bowel extraction. States pain is achy and burning, constant. She has nonbloody nonbilious emesis. She denies diarrhea, fever or chills, chest pain, dyspnea, back pain, dysuria, hematuria. States she has multiple small bowel obstructions the past, only one of which has required surgical intervention. Review of Systems Review of Systems Constitutional: Denies fever or chills [] Eyes: Denies change in visual acuity, redness, or eye pain [] HENT: Denies nasal congestion or sore throat [] Respiratory: Denies cough or shortness of breath [] Cardiovascular: No additional information not addressed in HPI [] GI: Denies bloody stools or diarrhea [] : Denies dysuria or hematuria [] Musculoskeletal: Denies back pain or joint pain [] Integument: Denies rash or skin lesions [] Neurologic: Denies headache, focal weakness or sensory changes [] Endocrine: Denies polyuria or polydipsia [] Current Medications Current Medications Current Medications Medications (Trade) Dose Ordered Sig/Sumit Start Time Stop Time Status Last Admin Dose Admin Famotidine (Pepcid) 20 mg 1X ONCE 12/09/16 01:45 12/09/16 02:11 DC 12/09/16 01:55 20 MG Fentanyl Citrate (Fentanyl 2ml Vial) 50 mcg PRN Q15MIN PRN 12/08/16 23:45 12/09/16 23:44 12/09/16 01:55 50 MCG Info (Do NOT chart on this entry -- for MONITORING) 1 each PRN DAILY PRN 12/09/16 00:00 12/11/16 00:00 Iohexol (Omnipaque 240 Mg/ml) 30 ml 1X ONCE 12/09/16 00:00 12/09/16 00:01 DC 12/08/16 11:50 30 ML Ondansetron HCl (Zofran) 4 mg 1X ONCE 12/09/16 01:45 12/09/16 02:11 DC 12/09/16 01:55 4 MG Sodium Chloride 1,000 ml @ 500 mls/hr Q2H 12/08/16 23:45 12/09/16 01:44 DC 12/08/16 23:45 500 MLS/HR Allergies Allergies Allergies Coded Allergies Type Severity Reaction Last Updated Verified hydromorphone Allergy Intermediate Palpitations 10/14/13 Yes rosuvastatin Allergy Mild Nausea and Vomiting 10/14/13 Yes Physical Exam Physical Exam Constitutional: Well developed, well nourished, mild distress, non-toxic appearance. [] HENT: Normocephalic, atraumatic, bilateral external ears normal, oropharynx moist, nose normal. [] Eyes: PERRLA, EOMI. [] Neck: Normal range of motion, supple. [] Cardiovascular:Heart rate regular rhythm [] Lungs & Thorax: Bilateral breath sounds clear to auscultation [] Abdomen: Bowel sounds normal, soft, moderate general tenderness, no guarding or rebound, nondistended. [] Skin: Warm, dry, no erythema, no rash. [] Back: No tenderness, no CVA tenderness. [] Extremities: No tenderness, ROM intact, no edema. [] Neurologic: Alert and oriented X 3, normal motor function, normal sensory function, no focal deficits noted. [] Psychologic: Affect normal, judgement normal, mood normal. [] Current Patient Data Vital Signs Vital Signs Date Time Temp Pulse Resp B/P (MAP) Pulse Ox O2 Delivery O2 Flow Rate FiO2 12/09/16 01:55 99 Room Air 12/09/16 00:41 16 12/08/16 23:40 98.6 80 178/85 (116) 98.6 Lab Values Laboratory Tests Test 12/08/16 23:28 White Blood Count 9.8 x10^3/uL (4.0-11.0) Red Blood Count 3.75 x10^6/uL (3.50-5.40) Hemoglobin 11.8 g/dL (12.0-15.5) L Hematocrit 37.4 % (36.0-47.0) Mean Corpuscular Volume 100 fL (79-100) Mean Corpuscular Hemoglobin 32 pg (25-35) Mean Corpuscular Hemoglobin Concent 32 g/dL (31-37) Red Cell Distribution Width 13.8 % (11.5-14.5) Platelet Count 238 x10^3/uL (140-400) Neutrophils (%) (Auto) 77 % (31-73) H Lymphocytes (%) (Auto) 16 % (24-48) L Monocytes (%) (Auto) 6 % (0-9) Eosinophils (%) (Auto) 1 % (0-3) Basophils (%) (Auto) 1 % (0-3) Neutrophils # (Auto) 7.6 x10^3uL (1.8-7.7) Lymphocytes # (Auto) 1.6 x10^3/uL (1.0-4.8) Monocytes # (Auto) 0.6 x10^3/uL (0.0-1.1) Eosinophils # (Auto) 0.1 x10^3/uL (0.0-0.7) Basophils # (Auto) 0.0 x10^3/uL (0.0-0.2) Sodium Level 142 mmol/L (136-145) Potassium Level 4.8 mmol/L (3.5-5.1) Chloride Level 109 mmol/L (98-107) H Carbon Dioxide Level 21 mmol/L (21-32) Anion Gap 12 (6-14) Blood Urea Nitrogen 36 mg/dL (7-20) H Creatinine 1.4 mg/dL (0.6-1.0) H Estimated GFR (Cockcroft-Gault) 37.2 Glucose Level 125 mg/dL (70-99) H Lactic Acid Level 0.9 mmol/L (0.4-2.0) Calcium Level 8.8 mg/dL (8.5-10.1) Total Bilirubin 0.4 mg/dL (0.2-1.0) Direct Bilirubin 0.1 mg/dL (0.0-0.2) Aspartate Amino Transferase (AST) 16 U/L (15-37) Alanine Aminotransferase (ALT) 27 U/L (14-59) Alkaline Phosphatase 195 U/L (46-116) H Total Protein 7.5 g/dL (6.4-8.2) Albumin 3.8 g/dL (3.4-5.0) Lipase 160 U/L (73-393) Laboratory Tests 6/23/17 23:28 Laboratory Tests 12/08/16 23:28 Radiology/Procedures Radiology/Procedures CT abdomen and pelvis with oral contrast IMPRESSION: 1. Distention of several loops of small bowel in the left side of the abdomen. Given the presence of this finding region of obstruction or ileus is within the differential. 2. Low-attenuation lesion superior aspect of the spleen similar to prior. Incompletely evaluated on noncontrast imaging. If further evaluation is desired focused ultrasound or MRI could further evaluate. There is also suspected left renal lesion but can be further evaluated on MRI or ultrasound. 3. Nodular thickening left adrenal gland. Nonspecific appearance on this examination. If the patient has history or risk factors for neoplasm and further evaluation is desired MRI could better evaluate. This is a commonly seen finding. Electronically signed by: Donny Chong MD (12/09/2016 1:18 AM) Course & Med Decision Making Course & Med Decision Making Pertinent Labs and Imaging studies reviewed. (See chart for details) Discussed case with Dr. Long, general surgery, who recommends transfer to hospital with bariatric services. Discussed case with [facility] per patient preference; [facility] has accepted her for transfer; Dr. Robin is accepting physician. Transfer consent signed and placed on chart. She is transferred via EMS in stable condition. Dragon Disclaimer Dragon Disclaimer This electronic medical record was generated, in whole or in part, using a voice recognition dictation system. Departure Departure Impression: Primary Impression: Small bowel obstruction Disposition: 05 TRANSFER OTHER (Formerly [facility]) Condition: STABLE Referrals: MICHELLE LILLY (PCP) Radha GARAY MD Dec 09, 2016 01:45
[2016-12-09 03:21] VITALS: BP 188/88
== END 2016-12-09 03:47 | disposition short-term general hospital (02) ==
LOC: ER 23:07
DX: K56.60 Unspecified intestinal obstruction (principal); F41.9 Anxiety disorder, unspecified; F32.9 Major depressive disorder, single episode, unspecified; I12.9 Hypertensive chronic kidney disease with stage 1 through stage 4 chronic kidney disease, or unspecified chronic kidney disease; N18.9 Chronic kidney disease, unspecified; Z90.49 Acquired absence of other specified parts of digestive tract; Z90.710 Acquired absence of both cervix and uterus; Z98.84 Bariatric surgery status; Z88.5 Allergy status to narcotic agent; Z88.8 Allergy status to other drugs, medicaments and biological substances
CPT/HCPCS: 36415; 74176; 80048; 80076; 83605; 83690; 85027; 96361; 96374; 96375; 96376; 99285; J2405; J3010; J7030; Q9966; S0028

== ENCOUNTER 2017-09-17 13:08 | Emergency (ER) | payer MEDICARE, OTHER ==
[2017-09-17 13:53] LABS: ADD MAN DIFF? YES; BASO % 0 % (0-3); EOS % 0 % (0-3); HEMATOCRIT 35.9 % (36.0-47.0); HEMOGLOBIN 11.3 g/dL (12.0-15.5); LYMPH # 1.4 x10^3/uL (1.0-4.8); LYMPH % 9 % (24-48); MEAN CORPUSCULAR HEMOGLOBIN 33 pg (25-35); MEAN CORPUSCULAR HGB CONC 32 g/dL (31-37); MEAN CORPUSCULAR VOLUME 103 fL (79-100); MONO # 0.9 x10^3/uL (0.0-1.1); MONO % 6 % (0-9); NEUT # 13.5 x10^3uL (1.8-7.7); NEUT % 85 % (31-73); PLATELET COUNT 194 x10^3/uL (140-400); RED BLOOD COUNT 3.47 x10^6/uL (3.50-5.40); RED CELL DISTRIBUTION WIDTH 14.1 % (11.5-14.5); WHITE BLOOD COUNT 15.8 x10^3/uL (4.0-11.0)
[2017-09-17 14:02] LABS: ANION GAP 16 (6-14); BLOOD UREA NITROGEN 35 mg/dL (7-20); BUN/CREATININE RATIO 21 (6-20); CALCIUM 8.6 mg/dL (8.5-10.1); CARBON DIOXIDE 17 mmol/L (21-32); CHLORIDE 111 mmol/L (98-107); CREATININE 1.7 mg/dL (0.6-1.0); GFR 29.6; GLUCOSE 100 mg/dL (70-99); POTASSIUM 5.5 mmol/L (3.5-5.1); SODIUM 144 mmol/L (136-145)
[2017-09-17 14:08] LABS: ALBUMIN/GLOBULIN RATIO 1.1 (1.0-1.7); ALK PHOS 131 U/L (46-116); ALT (SGPT) 24 U/L (14-59); AST (SGOT) 21 U/L (15-37); LIPASE 127 U/L (73-393); TOTAL BILIRUBIN 0.4 mg/dL (0.2-1.0); TOTAL PROTEIN 7.5 g/dL (6.4-8.2)
[2017-09-17] MEDS: ONDANSETRON PF 4 MG/2 ML VIAL. IV (14:10)
[2017-09-17] MEDS: FAMOTIDINE 20 MG/2 ML VIAL IVP (14:11)
[2017-09-17] MEDS: fentaNYL PF VIAL 100 MCG/2 ML VIAL IV (14:12)
[2017-09-17 14:21] LABS: % BANDS 11 % (0-9); % LYMPHS 11 % (24-48); % MONOS 4 % (0-10); % SEGS 74 % (35-66); PLT ESTIMATE ADEQUATE (ADEQUATE); POIKILOCYTOSIS SLIGHT
[2017-09-17 14:24] LABS: OVALOCYTES FEW; SCHISTOCYTES OCC
[2017-09-17] MEDS: IV NORMAL SALINE 1000ML BAG 1,000 ML IV (16:26)
[2017-09-17 17:41] LABS: LACTIC ACID 0.8 mmol/L (0.4-2.0)
== END 2017-09-17 17:21 | disposition short-term general hospital (02) ==
LOC: ER 13:08
DX: R10.13 Epigastric pain (principal); R11.10 Vomiting, unspecified; R50.9 Fever, unspecified; D72.825 Bandemia; D72.829 Elevated white blood cell count, unspecified; E03.9 Hypothyroidism, unspecified; I12.9 Hypertensive chronic kidney disease with stage 1 through stage 4 chronic kidney disease, or unspecified chronic kidney disease; K21.9 Gastro-esophageal reflux disease without esophagitis; N18.9 Chronic kidney disease, unspecified; Z90.49 Acquired absence of other specified parts of digestive tract; Z90.710 Acquired absence of both cervix and uterus; Z98.84 Bariatric surgery status; Z98.890 Other specified postprocedural states; Z88.8 Allergy status to other drugs, medicaments and biological substances; Z88.5 Allergy status to narcotic agent
CPT/HCPCS: 36415; 74022; 74176; 80053; 83605; 83690; 85007; 85025; 87040; 93005; 96360; 96361; 96374; 96375; 99285-25; J2405; J3010; J7030; S0028

== ENCOUNTER 2017-11-17 21:56 | Emergency (ER) | payer MEDICARE, OTHER ==
[2017-11-17 22:44] LABS: ADD MAN DIFF? NO
[2017-11-17 22:46] LABS: BASO % 0 % (0-3); EOS % 0 % (0-3); HEMATOCRIT 31.1 % (36.0-47.0); HEMOGLOBIN 10.1 g/dL (12.0-15.5); LYMPH # 2.2 x10^3/uL (1.0-4.8); LYMPH % 34 % (24-48); MEAN CORPUSCULAR HEMOGLOBIN 32 pg (25-35); MEAN CORPUSCULAR HGB CONC 32 g/dL (31-37); MEAN CORPUSCULAR VOLUME 98 fL (79-100); MONO # 0.5 x10^3/uL (0.0-1.1); MONO % 7 % (0-9); NEUT # 3.7 x10^3uL (1.8-7.7); NEUT % 58 % (31-73); PLATELET COUNT 169 x10^3/uL (140-400); RED BLOOD COUNT 3.16 x10^6/uL (3.50-5.40); RED CELL DISTRIBUTION WIDTH 13.3 % (11.5-14.5); WHITE BLOOD COUNT 6.4 x10^3/uL (4.0-11.0)
[2017-11-17 23:31] LABS: ANION GAP 9 (6-14); BLOOD UREA NITROGEN 25 mg/dL (7-20); CALCIUM 7.9 mg/dL (8.5-10.1); CARBON DIOXIDE 22 mmol/L (21-32); CHLORIDE 111 mmol/L (98-107); CREATININE 1.7 mg/dL (0.6-1.0); GFR 29.6; GLUCOSE 101 mg/dL (70-99); SODIUM 142 mmol/L (136-145)
[2017-11-17 23:43] LABS: TROPONINI < 0.017 ng/mL (0.000-0.055)
[2017-11-17 23:46] LABS: THYROID STIM HORMONE (TSH) 1.421 uIU/mL (0.358-3.74)
[2017-11-18] MEDS: LORazepam 0.5 MG TABLET PO (00:04)
[2017-11-18] MEDS ORDERED: LORazepam 1 MG TABLET (00:06)
[2017-11-18] MEDS ORDERED: LORazepam 1 MG TABLET PO (00:30)
== END 2017-11-18 00:15 | disposition home or self-care (01) ==
LOC: ER 11-18 00:15
DX: R00.2 Palpitations (principal); E03.9 Hypothyroidism, unspecified; I12.9 Hypertensive chronic kidney disease with stage 1 through stage 4 chronic kidney disease, or unspecified chronic kidney disease; N18.9 Chronic kidney disease, unspecified; K21.9 Gastro-esophageal reflux disease without esophagitis; Z90.49 Acquired absence of other specified parts of digestive tract; Z90.710 Acquired absence of both cervix and uterus; Z98.84 Bariatric surgery status; Z88.5 Allergy status to narcotic agent; Z91.041 Radiographic dye allergy status
CPT/HCPCS: 36415; 80048; 84443; 84484; 85025; 93005; 96374; 99285-25; J2060

== ENCOUNTER 2018-07-11 16:41 | Emergency (ER) | payer MEDICARE, OTHER ==
[~2018-07-11] VITALS: Ht 163.8 cm; Wt 55.6 kg
[~2018-07-11 16:41] MED LIST changes: +CLON1TAB11 PO; -CLON1TAB3 PO; -FERR-26 PO; +FERR325T14 PO; -GABA600T2 PO; +GABA600T7 PO; -HYDR-2766 PO; +HYDR-2769 PO; -MIRT30TA6 PO; +MIRT30TA93 PO; -MULT-35 PO; +MULT-377 PO
[2018-07-11 18:12] LABS: BILIRUBIN,URINE NEGATIVE (NEG); CLARITY,URINE CLEAR; COLOR,URINE YELLOW; NITRITE,URINE NEGATIVE (NEG); PH,URINE 7.5; PROTEIN,URINE NEGATIVE (NEG-TRACE); UROBILINOGEN,URINE 0.2 mg/dL (0.2 mg/dL)
[2018-07-11 18:17] LABS: BACTERIA,URINE FEW /HPF (0-FEW); RBC,URINE 0 /HPF (0-2); SQUAMOUS EPITHELIAL CELL,UR FEW /LPF
--- NOTE | 2018-07-11 18:23 | EKG ---
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
[2018-07-11 18:46] LABS: BASO # 0.1 x10^3/uL (0.0-0.2); BASO % 1 % (0-3); EOS % 0 % (0-3); HEMATOCRIT 32.2 % (36.0-47.0); HEMOGLOBIN 10.3 g/dL (12.0-15.5); LYMPH # 2.3 x10^3/uL (1.0-4.8); LYMPH % 33 % (24-48); MEAN CORPUSCULAR HEMOGLOBIN 31 pg (25-35); MEAN CORPUSCULAR HGB CONC 32 g/dL (31-37); MEAN CORPUSCULAR VOLUME 97 fL (79-100); MONO # 0.6 x10^3/uL (0.0-1.1); MONO % 9 % (0-9); NEUT % 57 % (31-73); PLATELET COUNT 164 x10^3/uL (140-400); RED BLOOD COUNT 3.33 x10^6/uL (3.50-5.40); RED CELL DISTRIBUTION WIDTH 14.6 % (11.5-14.5)
--- NOTE | 2018-07-11 19:00 | RAD ---
Examination: CT HEAD WO CONTRAST History: dizzy Comparison/Correlation: None Findings: Axial images of the head were obtained without contrast. Mild atrophy is present. No intracranial hemorrhage, midline shift, or mass effect. Globes and optic nerves are unremarkable. No depressed fracture. Impression: No acute process. Electronically signed by: Johnny Mays MD (07/11/2018 6:55 PM) [facility]
[2018-07-11 19:04] LABS: CALCIUM 8.4 mg/dL (8.5-10.1); GFR 24.5; POTASSIUM 4.3 mmol/L (3.5-5.1)
[2018-07-11 19:10] LABS: ALBUMIN 2.3 g/dL (3.4-5.0); ALBUMIN/GLOBULIN RATIO 0.6 (1.0-1.7); TOTAL BILIRUBIN 0.3 mg/dL (0.2-1.0); TOTAL PROTEIN 5.9 g/dL (6.4-8.2)
[2018-07-11 19:33] LABS: CREATINE KINASE 38 U/L (26-192)
--- NOTE | 2018-07-11 19:54 | PHYS DOC ---
Past Medical History Past Medical History: Anxiety, Depression, GERD, Hypertension, Hypothyroid, Renal Disease Additional Past Medical Histor: bowel obstruction, CKD Past Surgical History: Cholecystectomy, Colectomy, Gastric Bypass, Hysterectomy , Tonsillectomy Additional Past Surgical Histo: COLON PERF REPAIN. ADHEASION REPAIR, Alcohol Use: Rarely Drug Use: None Adult General Chief Complaint Chief Complaint: DIZZY/LIGHT HEADED HPI HPI Patient is a 73 year old female presents from home for evaluation of dizziness she describes as feeling off balance. She reports this has been chronic for at least the past year but she has felt more off balance today, no falls. She also reports today was having palpitations, denies chest pain or shortness of air. She states has had a history of hyperkalemia in the past and was told to be seen for evaluation if she had any kind of cardiac symptoms. She denies any recent illness, fever, nausea or vomiting.[] Review of Systems Review of Systems Constitutional: Denies fever or chills [] Eyes: Denies change in visual acuity, redness, or eye pain [] HENT: Denies nasal congestion or sore throat [] Respiratory: Denies cough or shortness of breath [] Cardiovascular: No additional information not addressed in HPI [] GI: Denies abdominal pain, nausea, vomiting, bloody stools or diarrhea [] : Denies dysuria or hematuria [] Musculoskeletal: Denies back pain or joint pain [] Integument: Denies rash or skin lesions [] Neurologic: Denies headache, focal weakness or sensory changes [] Endocrine: Denies polyuria or polydipsia [] All other systems were reviewed and found to be within normal limits, except as documented in this note. Allergies Allergies Allergies Coded Allergies Type Severity Reaction Last Updated Verified hydromorphone Allergy Intermediate Palpitations 10/14/13 Yes rosuvastatin Allergy Mild Nausea and Vomiting 10/14/13 Yes Physical Exam Physical Exam Constitutional: Well developed, well nourished, no acute distress, non-toxic appearance. [] HENT: Normocephalic, atraumatic, bilateral external ears normal, oropharynx moist, nose normal. [] Eyes: PERRLA, EOMI, conjunctiva normal, no discharge. [] Neck: Normal range of motion, no tenderness, supple, no stridor. [] Cardiovascular:Heart rate regular rhythm, no murmur, BILAT LE PITTING EDEMA-PT STATES IT IS DECREASED FROM NORMAL-TAKES LASIX FOR THIS [] Lungs & Thorax: Bilateral breath sounds clear to auscultation [] Skin: Warm, dry, no erythema, no rash. [] Back: No tenderness, no CVA tenderness. [] Extremities: No tenderness, no cyanosis, no clubbing, ROM intact. [] Neurologic: Alert and oriented X 3, normal motor function, normal sensory function. [] Psychologic: Affect normal, judgement normal, mood normal. [] Current Patient Data Vital Signs Vital Signs Date Time Temp Pulse Resp B/P (MAP) Pulse Ox O2 Delivery O2 Flow Rate FiO2 07/11/18 17:35 97.8 77 16 158/79 (105) 98 Room Air 97.8 Lab Values Laboratory Tests Test 07/11/18 17:40 07/11/18 18:35 Urine Collection Type Unknown Urine Color Yellow Urine Clarity Clear Urine pH 7.5 Urine Specific [place] 1.015 Urine Protein Negative mg/dL (NEG-TRACE) Urine Glucose (UA) Negative mg/dL (NEG) Urine Ketones (Stick) Negative mg/dL (NEG) Urine Blood Negative (NEG) Urine Nitrite Negative (NEG) Urine Bilirubin Negative (NEG) Urine Urobilinogen Dipstick 0.2 mg/dL (0.2 mg/dL) Urine Leukocyte Esterase Negative (NEG) Urine RBC 0 /HPF (0-2) Urine WBC 1-4 /HPF (0-4) Urine Squamous Epithelial Cells Few /LPF Urine Bacteria Few /HPF (0-FEW) Urine Mucus Slight /LPF White Blood Count 7.0 x10^3/uL (4.0-11.0) Red Blood Count 3.33 x10^6/uL (3.50-5.40) L Hemoglobin 10.3 g/dL (12.0-15.5) L Hematocrit 32.2 % (36.0-47.0) L Mean Corpuscular Volume 97 fL (79-100) Mean Corpuscular Hemoglobin 31 pg (25-35) Mean Corpuscular Hemoglobin Concent 32 g/dL (31-37) Red Cell Distribution Width 14.6 % (11.5-14.5) H Platelet Count 164 x10^3/uL (140-400) Neutrophils (%) (Auto) 57 % (31-73) Lymphocytes (%) (Auto) 33 % (24-48) Monocytes (%) (Auto) 9 % (0-9) Eosinophils (%) (Auto) 0 % (0-3) Basophils (%) (Auto) 1 % (0-3) Neutrophils # (Auto) 4.0 x10^3uL (1.8-7.7) Lymphocytes # (Auto) 2.3 x10^3/uL (1.0-4.8) Monocytes # (Auto) 0.6 x10^3/uL (0.0-1.1) Eosinophils # (Auto) 0.0 x10^3/uL (0.0-0.7) Basophils # (Auto) 0.1 x10^3/uL (0.0-0.2) Sodium Level 143 mmol/L (136-145) Potassium Level 4.3 mmol/L (3.5-5.1) Chloride Level 107 mmol/L (98-107) Carbon Dioxide Level 31 mmol/L (21-32) Anion Gap 5 (6-14) L Blood Urea Nitrogen 27 mg/dL (7-20) H Creatinine 2.0 mg/dL (0.6-1.0) H Estimated GFR (Cockcroft-Gault) 24.5 BUN/Creatinine Ratio 14 (6-20) Glucose Level 75 mg/dL (70-99) Calcium Level 8.4 mg/dL (8.5-10.1) L Total Bilirubin 0.3 mg/dL (0.2-1.0) Aspartate Amino Transferase (AST) 20 U/L (15-37) Alanine Aminotransferase (ALT) 29 U/L (14-59) Alkaline Phosphatase 101 U/L (46-116) Creatine Kinase 38 U/L (26-192) Creatine Kinase MB (Mass) 1.1 ng/mL (0.0-3.6) Creatine Kinase MB Relative Index % (0-4) Troponin I Quantitative < 0.017 ng/mL (0.000-0.055) Total Protein 5.9 g/dL (6.4-8.2) L Albumin 2.3 g/dL (3.4-5.0) L Albumin/Globulin Ratio 0.6 (1.0-1.7) L Laboratory Tests 07/11/18 18:35 Laboratory Tests 07/11/18 18:35 EKG EKG [EKG, read by emergency room physician, interpretation sinus rhythm, no STEMI or acute changes, heart rate 83] Radiology/Procedures Radiology/Procedures [PROCEDURE: CT HEAD WO CONTRAST Examination: CT HEAD WO CONTRAST History: dizzy Comparison/Correlation: None Findings: Axial images of the head were obtained without contrast. Mild atrophy is present. No intracranial hemorrhage, midline shift, or mass effect. Globes and optic nerves are unremarkable. No depressed fracture. Impression: No acute process. Electronically signed by: Johnny Mays MD (07/11/2018 6:55 PM) [facility] ] Course & Med Decision Making Course & Med Decision Making Pertinent Labs and Imaging studies reviewed. (See chart for details) [Creatinine is at baseline for patient's chronic kidney disease, vital signs are stable, CT head is negative. Discussed with patient my concern regarding her feeling of off balance, she assures me this is been going on for at least the past year, she is wondering if maybe she should get a cane or something to balance on most she is walking. She reports this is not new, she does not has any lateralizing weakness. She is not having any headaches, vision changes. She reports was really concerned that her potassium was elevated again which could have been causing palpitations. She is relieved to know that her potassium is within normal limits. She does have a primary care physician that she is able to follow up with, she will call tomorrow to see if she can schedule an earlier appointment as she has one for next month already made. Recommend close follow- up and return to ER for new or worsening symptoms. I discussed this case with Dr. Tomlinson who agrees that since her symptoms of off balance feeling are chronic in nature and not acute, patient can be discharged home with close follow-up with PCP.] Dragon Disclaimer Dragon Disclaimer This electronic medical record was generated, in whole or in part, using a voice recognition dictation system. Departure Departure Impression: Primary Impression: Palpitations Additional Impression: Impaired ambulation Disposition: 01 HOME, SELF-CARE Condition: STABLE Referrals: MICHELLE LILLY (PCP) Patient Instructions: Palpitations Problem Qualifiers VIN BLACKBURN APRN Jul 11, 2018 19:54
[2018-07-11 19:57] VITALS: BP 143/70
--- NOTE | 2018-07-12 02:54 | RAD ---
Chest, PA and Lateral: Technique: PA and lateral views of the chest were obtained. History: Dizziness, weakness. Comparison: 09/17/2017. Findings: The heart and pulmonary vasculature appear within normal limits. The lungs are clear. The pleural margins are clear. Moderate degenerative changes thoracic spine. Small calcified granuloma identified in the right upper lobe of the lung similar to prior exam. Impression: No acute chest process is seen. Electronically signed by: Gaston Green MD (07/12/2018 2:49 AM) [facility] [id number]
== END 2018-07-11 20:50 | disposition home or self-care (01) ==
LOC: ER 16:41
DX: R00.2 Palpitations (principal); Z74.09 Other reduced mobility; R42 Dizziness and giddiness; R26.2 Difficulty in walking, not elsewhere classified; K21.9 Gastro-esophageal reflux disease without esophagitis; E03.9 Hypothyroidism, unspecified; I12.9 Hypertensive chronic kidney disease with stage 1 through stage 4 chronic kidney disease, or unspecified chronic kidney disease; N18.9 Chronic kidney disease, unspecified; F32.9 Major depressive disorder, single episode, unspecified; F41.9 Anxiety disorder, unspecified; Z88.5 Allergy status to narcotic agent; Z88.8 Allergy status to other drugs, medicaments and biological substances
CPT/HCPCS: 36415; 70450; 71046; 80053; 81001; 82553; 84484; 85025; 93005; 99284-25

== ENCOUNTER 2018-09-14 16:27 | Inpatient (IN) | payer MEDICARE, OTHER ==
[~2018-09-14] VITALS: Ht 162.6 cm; Wt 59.0 kg
--- NOTE | 2018-09-14 17:26 | PHYS DOC ---
Past Medical History Past Medical History: Anxiety, Depression, GERD, Hypertension, Hypothyroid, Renal Disease Additional Past Medical Histor: bowel obstruction, CKD Past Surgical History: Cholecystectomy, Colectomy, Gastric Bypass, Hysterectomy , Tonsillectomy Additional Past Surgical Histo: COLON PERF REPAIN. ADHEASION REPAIR, Alcohol Use: Rarely Drug Use: None Adult General Chief Complaint Chief Complaint: HIP PAIN HPI HPI 73-year-old female presents to ER via POV after a mechanical fall a few hours ago. Patient states she has history of a protein deficiency which causes generalized fatigue and weakness and causes her to fall. Patient denies any acute change in her weakness. She reports she lost her balance causing her to fall while walking up the steps outside of her residence. Patient states the steps were concrete and she landed onto her right hip. She denies striking her head or having any head, neck, or back pain. Patient denies any loss of consciousness. Patient states she has had difficulty walking since the fall but has been able to place weight on bilateral lower extremities. Patient states she has a walker at home which she can use however does not use while walking. Patient has multiple abrasions and scabs on bilateral upper extremities which she reports none of which are from today's fall. Review of Systems Review of Systems Constitutional: Denies fever or chills. She reports history of generalized fatigue and weakness denies acute changes Eyes: Denies change in visual acuity, redness, or eye pain [] HENT: Denies nasal congestion or sore throat [] Respiratory: Denies cough or shortness of breath [] Cardiovascular: No additional information not addressed in HPI [] GI: Denies abdominal pain, nausea, vomiting, bloody stools or diarrhea [] : Denies incontinence of bowel/bladder Musculoskeletal: Denies back/neck pain. Reports right hip pain Integument: Denies rash or skin lesions [] Neurologic: Denies headache, focal weakness or sensory changes [] All other systems were reviewed and found to be within normal limits, except as documented in this note. Current Medications Current Medications Current Medications Medications (Trade) Dose Ordered Sig/Sumit Start Time Stop Time Status Last Admin Dose Admin Fentanyl Citrate (Fentanyl 2ml Vial) 25 mcg 1X ONCE 09/14/18 17:30 09/14/18 17:31 DC 09/14/18 17:37 25 MCG Morphine Sulfate (Morphine Sulfate) 4 mg 1X ONCE 09/14/18 18:15 09/14/18 18:17 DC 09/14/18 18:25 4 MG Allergies Allergies Allergies Coded Allergies Type Severity Reaction Last Updated Verified hydromorphone Allergy Intermediate Palpitations 10/14/13 Yes rosuvastatin Allergy Mild Nausea and Vomiting 10/14/13 Yes Physical Exam Physical Exam Constitutional: Frail/fatigued appearance- pale skin tone, well nourished, no acute distress, non-toxic appearance. [] HENT: Normocephalic, atraumatic, mucous membranes pale/dry, nose normal. [] Eyes: Pupils equal, conjunctiva normal, no discharge. [] Neck: Normal range of motion, no tenderness- no midline cspine tenderness or palp deformity, supple, no stridor. [] Cardiovascular: Heart rate regular rhythm, no murmur [] Lungs & Thorax: Bilateral breath sounds clear to auscultation [] Abdomen: Bowel sounds normal, soft, no tenderness, no masses, no pulsatile masses. [] Skin: Warm, dry, no erythema, no rash. Multiple scabs/abrasions/bruising on bilat. upper extremities in different phases of healing Back: No midline spinal tenderness on exam Extremities: Pelvis stable- palpation of pelvis patient has complaints of increased right hip pain. Tender rt lateral hip with palp. deformity- with pt's position on cart difficult to determine shortening of limb as her rt LE was elevated on blankets prior to exam. 2+ bilat posterior tibial/dorsalis pedis. No cyanosis, no clubbing, decreased ROM in bilat. LEs with pt reporting d/t protein deficiency/chronic weakness movements are slow, 2-3+ lower leg and pedal edema bilat. which pt reports is chronic. Neurologic: Alert and oriented X 3, normal motor function, normal sensory function, no focal deficits noted. [] Psychologic: Affect normal, judgement normal, mood normal. [] Current Patient Data Vital Signs Vital Signs Date Time Temp Pulse Resp B/P (MAP) Pulse Ox O2 Delivery O2 Flow Rate FiO2 09/14/18 18:15 16 96 Room Air 09/14/18 17:05 98.4 77 165/67 (99) 98.4 Lab Values Laboratory Tests Test 09/14/18 17:25 White Blood Count 8.5 x10^3/uL (4.0-11.0) Red Blood Count 3.03 x10^6/uL (3.50-5.40) L Hemoglobin 9.3 g/dL (12.0-15.5) L Hematocrit 29.2 % (36.0-47.0) L Mean Corpuscular Volume 96 fL (79-100) Mean Corpuscular Hemoglobin 31 pg (25-35) Mean Corpuscular Hemoglobin Concent 32 g/dL (31-37) Red Cell Distribution Width 16.7 % (11.5-14.5) H Platelet Count 263 x10^3/uL (140-400) Neutrophils (%) (Auto) 82 % (31-73) H Lymphocytes (%) (Auto) 12 % (24-48) L Monocytes (%) (Auto) 5 % (0-9) Eosinophils (%) (Auto) 0 % (0-3) Basophils (%) (Auto) 1 % (0-3) Neutrophils # (Auto) 7.0 x10^3uL (1.8-7.7) Lymphocytes # (Auto) 1.1 x10^3/uL (1.0-4.8) Monocytes # (Auto) 0.4 x10^3/uL (0.0-1.1) Eosinophils # (Auto) 0.0 x10^3/uL (0.0-0.7) Basophils # (Auto) 0.1 x10^3/uL (0.0-0.2) Prothrombin Time 14.0 SEC (11.7-14.0) Prothrombin Time INR 1.1 (0.8-1.1) PTT 28 SEC (24-38) Sodium Level 144 mmol/L (136-145) Potassium Level 4.4 mmol/L (3.5-5.1) Chloride Level 109 mmol/L (98-107) H Carbon Dioxide Level 28 mmol/L (21-32) Anion Gap 7 (6-14) Blood Urea Nitrogen 24 mg/dL (7-20) H Creatinine 1.7 mg/dL (0.6-1.0) H Estimated GFR (Cockcroft-Gault) 29.5 BUN/Creatinine Ratio 14 (6-20) Glucose Level 124 mg/dL (70-99) H Calcium Level 7.5 mg/dL (8.5-10.1) L Total Bilirubin 0.2 mg/dL (0.2-1.0) Aspartate Amino Transferase (AST) 22 U/L (15-37) Alanine Aminotransferase (ALT) 26 U/L (14-59) Alkaline Phosphatase 83 U/L (46-116) Total Protein 5.3 g/dL (6.4-8.2) L Albumin 1.4 g/dL (3.4-5.0) L Albumin/Globulin Ratio 0.4 (1.0-1.7) L Laboratory Tests 09/14/18 17:25 Laboratory Tests 09/14/18 17:25 EKG EKG [] Radiology/Procedures Radiology/Procedures PROCEDURE: HIP RIGHT 2V WITH PELVIS Two-view right hip with AP pelvis dated 09/14/2018. No comparison available. CLINICAL INDICATION: Pain after fall. FINDINGS: Supine portable AP view pelvis and two-view right hip show complete fracture at the subcapital right femoral neck. There is mild superior lateral displacement and mild medial angulation. Overlying soft tissue swelling.. Pelvic ring is intact. Mild degenerative change of the bilateral hip joint. No additional fractures are seen. IMPRESSION: Right femoral neck fracture. Electronically signed by: Jake Gutierrez MD (09/14/2018 6:08 PM) [facility] [place] DICTATED and SIGNED BY: JAKE GUTIERREZ MD DATE: 09/14/181807 PROCEDURE: CHEST AP ONLY Single view chest dated 09/14/2018. Comparison made to 07/11/2018. Clinical indication: Hip fracture. FINDINGS: Single upright portable exam performed. Heart and mediastinal contours are stable. There is consolidation at the left lung base with blunting of left costophrenic sulcus. Nodular density in the right base likely represents nipple shadow. There is also a nodule at the right upper lobe that is unchanged, likely calcified granuloma. No pneumothorax. IMPRESSION: 1. Small left pleural effusion. Consolidation at the left base likely represents associated atelectasis. 2. Vague nodular focus at the right lung base, likely a nipple shadow. Suggest follow-up PA and lateral exam for better evaluation. Electronically signed by: Jake Gutierrez MD (09/14/2018 6:10 PM) [facility] DICTATED and SIGNED BY: JAKE GUTIERREZ MD DATE: 09/14/181809 Course & Med Decision Making Course & Med Decision Making Pertinent Labs and Imaging studies reviewed. (See chart for details) 181: Discussed patient's x-ray results with her with report of "Right femoral neck fracture". She reports she's had no relief since receiving initial dose of pain medicine. She remains vascular intact in bilateral lower extremities and continues to deny any head, neck, or back pain. Will provide patient with additional pain medicine and obtain basic labs. Chest x-ray obtained showed small left side pleural effusion. 1819: Spoke with Dr. Chapman, hospitalist and discussed patient's case and admission plan. Will consult orthopedics with admit orders. 1827: Spoke with Dr. Murray ortho construction foreman and discussed pt's case. Dragon Disclaimer Dragon Disclaimer This electronic medical record was generated, in whole or in part, using a voice recognition dictation system. Departure Departure Impression: Primary Impression: Hip fracture, right Additional Impression: Fall Disposition: ADMITTED INPATIENT Admitting Physician: Valentin Pagan Condition: STABLE Referrals: MICHELLE LILLY (PCP) Problem Qualifiers KANDACE AMATO APRN Sep 14, 2018 17:26
[2018-09-14] MEDS ORDERED: fentaNYL PF VIAL 100 MCG/2 ML VIAL IV ONE (17:30)
[2018-09-14 18:10] LABS: BASO # 0.1 x10^3/uL (0.0-0.2); BASO % 1 % (0-3); EOS % 0 % (0-3); HEMATOCRIT 29.2 % (36.0-47.0); HEMOGLOBIN 9.3 g/dL (12.0-15.5); LYMPH # 1.1 x10^3/uL (1.0-4.8); LYMPH % 12 % (24-48); MEAN CORPUSCULAR HEMOGLOBIN 31 pg (25-35); MEAN CORPUSCULAR HGB CONC 32 g/dL (31-37); MEAN CORPUSCULAR VOLUME 96 fL (79-100); MONO # 0.4 x10^3/uL (0.0-1.1); MONO % 5 % (0-9); NEUT % 82 % (31-73); PLATELET COUNT 263 x10^3/uL (140-400); RED BLOOD COUNT 3.03 x10^6/uL (3.50-5.40); RED CELL DISTRIBUTION WIDTH 16.7 % (11.5-14.5); WHITE BLOOD COUNT 8.5 x10^3/uL (4.0-11.0)
--- NOTE | 2018-09-14 18:11 | RAD ---
Two-view right hip with AP pelvis dated 09/14/2018. No comparison available. CLINICAL INDICATION: Pain after fall. FINDINGS: Supine portable AP view pelvis and two-view right hip show complete fracture at the subcapital right femoral neck. There is mild superior lateral displacement and mild medial angulation. Overlying soft tissue swelling.. Pelvic ring is intact. Mild degenerative change of the bilateral hip joint. No additional fractures are seen. IMPRESSION: Right femoral neck fracture. Electronically signed by: Jake Gutierrez MD (09/14/2018 6:08 PM) [facility]
--- NOTE | 2018-09-14 18:13 | RAD ---
Single view chest dated 09/14/2018. Comparison made to 07/11/2018. Clinical indication: Hip fracture. FINDINGS: Single upright portable exam performed. Heart and mediastinal contours are stable. There is consolidation at the left lung base with blunting of left costophrenic sulcus. Nodular density in the right base likely represents nipple shadow. There is also a nodule at the right upper lobe that is unchanged, likely calcified granuloma. No pneumothorax. IMPRESSION: 1. Small left pleural effusion. Consolidation at the left base likely represents associated atelectasis. 2. Vague nodular focus at the right lung base, likely a nipple shadow. Suggest follow-up PA and lateral exam for better evaluation. Electronically signed by: Jake Gutierrez MD (09/14/2018 6:10 PM) [facility]
[2018-09-14 18:15] LABS: CALCIUM 7.5 mg/dL (8.5-10.1); CREATININE 1.7 mg/dL (0.6-1.0); GFR 29.5; POTASSIUM 4.4 mmol/L (3.5-5.1)
[2018-09-14] MEDS ORDERED: MORPHINE SULFATE 4 MG/ML VIAL. IV ONE (18:15)
[2018-09-14 18:22] LABS: ALBUMIN 1.4 g/dL (3.4-5.0); ALBUMIN/GLOBULIN RATIO 0.4 (1.0-1.7); TOTAL BILIRUBIN 0.2 mg/dL (0.2-1.0); TOTAL PROTEIN 5.3 g/dL (6.4-8.2)
[2018-09-14] MEDS: MORPHINE SULFATE 4 MG/ML VIAL. IV PRN ×3 (19:11→23:05)
[2018-09-14] MEDS ORDERED: ONDANSETRON PF 4 MG/2 ML VIAL. IV PRN ×2 (19:15→20:30)
[2018-09-14 19:45] VITALS: BP 117/66
[2018-09-14] MEDS ORDERED: SODI650T PO (20:08)
[2018-09-14] MEDS ORDERED: MULT1TAB52 PO (20:08)
[2018-09-14] MEDS ORDERED: CALC-98 PO (20:08)
--- NOTE | 2018-09-14 20:08 | PDOC1 ---
History and Physical Date of Admission Date of Admission DATE: 09/14/18 TIME: 20:06 Identification/Chief Complaint Chief Complaint SEEN IN ER , via POV after a mechanical fall a few hours ago. Patient states she has history of a protein deficiency which causes generalized fatigue and weakness and causes her to fall. Patient denies any acute change in her weakness. She reports she lost her balance causing her to fall while walking up the steps outside of her residence. Patient states the steps were concrete and she landed onto her right hip. pain under fair control now Past Medical History Past Medical History Past Medical History Past Medical History Past Medical History: Anxiety, Depression, GERD, Hypertension, Hypothyroid, Renal Disease Additional Past Medical Histor: bowel obstruction, CKD Past Surgical History: Cholecystectomy, Colectomy, Gastric Bypass, Hysterectomy , Tonsillectomy Additional Past Surgical Histo: COLON PERF REPAIN. ADHEASION REPAIR, Alcohol Use: Rarely Drug Use: None family hx htn Cardiovascular: No pertinent hx Pulmonary: No pertinent hx GI: Gastritis Heme/Onc: No pertinent hx Hepatobiliary: No pertinent hx Psych: No pertinent hx Rheumatologic: No pertinent hx Infectious disease: No pertinent hx Renal/: No pertinent hx Endocrine: No pertinent hx Past Surgical History Past Surgical History: Other Family History Family History PAST MEDICAL HISTORY: Previous obesity, but she has had gastric bypass, chronic pain; GERD and neuropathy. ALLERGIES: HYDROMORPHONE AND ROSUVASTATIN. FAMILY HISTORY: Coronary artery disease. SOCIAL HISTORY: She does not drink, smoke or take drugs. MEDICATIONS: Reviewed, please refer to the MRAD. Family History: Hypertension Social History Smoke: No ALCOHOL: none Drugs: None Current Problem List Problem List Problems Medical Problems: (1) Fall Status: Acute (2) Hip fracture, right Status: Acute Current Medications Current Medications Current Medications Fentanyl Citrate (Fentanyl 2ml Vial) 25 mcg 1X ONCE IV Last administered on at 17:37; Start 09/14/18 at 17:30; Stop 09/14/18 at 17:31; Status DC Morphine Sulfate (Morphine Sulfate) 4 mg 1X ONCE IV Last administered on at 18:25; Start 09/14/18 at 18:15; Stop 09/14/18 at 18:17; Status DC Ondansetron HCl (Zofran) 4 mg PRN Q8HRS PRN IV NAUSEA/VOMITING; Start 09/14/18 at 19:15; Stop 09/15/18 at 19:14 Morphine Sulfate (Morphine Sulfate) 4 mg PRN Q2HR PRN IV PAIN Last administered on 09/14/18at 19:11; Start 09/14/18 at 19:15; Stop 09/15/18 at 19:14 Active Scripts Active Reported Levothyroxine Sodium 100 Mcg Tablet 100 Mcg PO DAILYAC Abilify (Aripiprazole) 10 Mg Tablet 2 Tab PO HS Wellbutrin Sr (Bupropion Hcl) 150 Mg Tablet.er 150 Mg PO DAILY Omeprazole 40 Mg Capsule.dr 40 Mg PO BID Gabapentin 600 Mg Tablet 1,200 Mg PO BID Mirtazapine 30 Mg Tablet 30 Mg PO HS Clonazepam 1 Mg Tablet 1 Mg PO BID Citalopram Hbr (Citalopram Hydrobromide) 40 Mg Tablet 20 Mg PO DAILY Allergies Allergies: Coded Allergies: hydromorphone (Verified Allergy, Intermediate, Palpitations, 10/14/13) rosuvastatin (Verified Allergy, Mild, Nausea and Vomiting, 10/14/13) ROS Review of System Review of Systems Review of Systems Constitutional: Denies fever or chills. reports history of generalized fatigue and weakness denies acute changes Eyes: Denies change in visual acuity, redness, or eye pain [] HENT: Denies nasal congestion or sore throat [] Respiratory: Denies cough or shortness of breath [] Cardiovascular: No additional information not addressed in HPI [] GI: Denies abdominal pain, nausea, vomiting, bloody stools or diarrhea [] : Denies incontinence of bowel/bladder Musculoskeletal: Denies back/neck pain. Reports right hip pain Integument: Denies rash or skin lesions [] Neurologic: Denies headache, focal weakness or sensory changes [] 14 PT systems were reviewed and found to be within normal limits, except as documented ALLERGY AND IMMUNOLOGY: No: Hives, Insect Bite Sensitivity, Itchy/Watery Eyes, Nasal Congestion, Post Nasal Drip, Seasonal Allergies, Other Hematological and Lymphatic: No: Bleeding Problems, Blood Clots, Blood Transfusions, Brusing, Night Sweats, Pallor, Swollen Lymph Nodes, Other Respiratory: No: Cough, Hemoptysis, Orthopnea, Pleuritic Pain, Shortness of breath, SOB with excertion, Sputum Changes, Stridor, Tachypnea, Wheezing, Other Cardiovascular: No Chest Pain, No Palpitations, No Orthopnea, No Paroxysmal Noc. Dyspnea, No Edema, No Lt Headedness, No Other Gastrointestinal: No Nausea, No Vomiting, No Abdominal Pain, No Diarrhea, No Constipation, No Melena, No Hematochezia, No Other Musculoskeletal: Yes Gait Disturbance, Yes Joint Pain, Yes Joint Stiffness Physical Exam Physical Exam Physical Exam Physical Exam Constitutional: Frail/fatigued appearance- pale skin tone, well nourished, MILD acute distress, non-toxic appearance. [] HENT: Normocephalic, atraumatic, mucous membranes pale/dry, nose normal. [] Eyes: Pupils equal, conjunctiva normal, no discharge. [] Neck: Normal range of motion, no tenderness- no midline cspine tenderness or palp deformity, supple, no stridor. [] Cardiovascular: Heart rate regular rhythm, no murmur [] Lungs & Thorax: Bilateral breath sounds clear to auscultation [] Abdomen: Bowel sounds normal, soft, no tenderness, no masses, no pulsatile masses. [] Skin: Warm, dry, no erythema, no rash. Multiple scabs/abrasions/bruising on bilat. upper extremities in different phases of healing Back: No midline spinal tenderness on exam Extremities: Pelvis stable- palpation of pelvis patient has complaints of increased right hip pain. Tender rt lateral hip with palp. deformity- with pt's position on cart difficult to determine shortening of limb as her rt LE was elevated on blankets prior to exam. 2+ bilat posterior tibial/dorsalis pedis. No cyanosis, no clubbing, decreased ROM in bilat. LEs with pt reporting d/t protein deficiency/chronic weakness movements are slow, 2-3+ lower leg and pedal edema bilat. which pt reports is chronic. Neurologic: Alert and oriented X 3, normal motor function, normal sensory function, no focal deficits noted. [] Psychologic: Affect normal, judgement normal, mood normal. [] General: Alert, Oriented X3, Cooperative, mild distress HEENT: Atraumatic Heart: RRR Breasts: Not examined Abdomen: Normal bowel sounds, Soft Rectal Exam: not examined PELVIC: Examination not indicated Extremities: No cyanosis, Normal pulses Neuro: Normal speech, Cranial nerves 3-12 NL Psych/Mental Status: Mental status NL, Mood NL Vitals Vitals Vital Signs Date Time Temp Pulse Resp B/P (MAP) Pulse Ox O2 Delivery O2 Flow Rate FiO2 09/14/18 19:11 14 09/14/18 19:08 74 135/64 (87) 94 Room Air 09/14/18 17:05 98.4 98.4 Labs Labs Laboratory Tests Test 09/14/18 17:25 White Blood Count 8.5 x10^3/uL (4.0-11.0) Red Blood Count 3.03 x10^6/uL (3.50-5.40) Hemoglobin 9.3 g/dL (12.0-15.5) Hematocrit 29.2 % (36.0-47.0) Mean Corpuscular Volume 96 fL (79-100) Mean Corpuscular Hemoglobin 31 pg (25-35) Mean Corpuscular Hemoglobin Concent 32 g/dL (31-37) Red Cell Distribution Width 16.7 % (11.5-14.5) Platelet Count 263 x10^3/uL (140-400) Neutrophils (%) (Auto) 82 % (31-73) Lymphocytes (%) (Auto) 12 % (24-48) Monocytes (%) (Auto) 5 % (0-9) Eosinophils (%) (Auto) 0 % (0-3) Basophils (%) (Auto) 1 % (0-3) Neutrophils # (Auto) 7.0 x10^3uL (1.8-7.7) Lymphocytes # (Auto) 1.1 x10^3/uL (1.0-4.8) Monocytes # (Auto) 0.4 x10^3/uL (0.0-1.1) Eosinophils # (Auto) 0.0 x10^3/uL (0.0-0.7) Basophils # (Auto) 0.1 x10^3/uL (0.0-0.2) Prothrombin Time 14.0 SEC (11.7-14.0) Prothromb Time International Ratio 1.1 (0.8-1.1) Activated Partial Thromboplast Time 28 SEC (24-38) Sodium Level 144 mmol/L (136-145) Potassium Level 4.4 mmol/L (3.5-5.1) Chloride Level 109 mmol/L (98-107) Carbon Dioxide Level 28 mmol/L (21-32) Anion Gap 7 (6-14) Blood Urea Nitrogen 24 mg/dL (7-20) Creatinine 1.7 mg/dL (0.6-1.0) Estimated GFR (Cockcroft-Gault) 29.5 BUN/Creatinine Ratio 14 (6-20) Glucose Level 124 mg/dL (70-99) Calcium Level 7.5 mg/dL (8.5-10.1) Total Bilirubin 0.2 mg/dL (0.2-1.0) Aspartate Amino Transf (AST/SGOT) 22 U/L (15-37) Alanine Aminotransferase (ALT/SGPT) 26 U/L (14-59) Alkaline Phosphatase 83 U/L (46-116) Total Protein 5.3 g/dL (6.4-8.2) Albumin 1.4 g/dL (3.4-5.0) Albumin/Globulin Ratio 0.4 (1.0-1.7) Laboratory Tests Test 09/14/18 17:25 White Blood Count 8.5 x10^3/uL (4.0-11.0) Red Blood Count 3.03 x10^6/uL (3.50-5.40) Hemoglobin 9.3 g/dL (12.0-15.5) Hematocrit 29.2 % (36.0-47.0) Mean Corpuscular Volume 96 fL (79-100) Mean Corpuscular Hemoglobin 31 pg (25-35) Mean Corpuscular Hemoglobin Concent 32 g/dL (31-37) Red Cell Distribution Width 16.7 % (11.5-14.5) Platelet Count 263 x10^3/uL (140-400) Neutrophils (%) (Auto) 82 % (31-73) Lymphocytes (%) (Auto) 12 % (24-48) Monocytes (%) (Auto) 5 % (0-9) Eosinophils (%) (Auto) 0 % (0-3) Basophils (%) (Auto) 1 % (0-3) Neutrophils # (Auto) 7.0 x10^3uL (1.8-7.7) Lymphocytes # (Auto) 1.1 x10^3/uL (1.0-4.8) Monocytes # (Auto) 0.4 x10^3/uL (0.0-1.1) Eosinophils # (Auto) 0.0 x10^3/uL (0.0-0.7) Basophils # (Auto) 0.1 x10^3/uL (0.0-0.2) Prothrombin Time 14.0 SEC (11.7-14.0) Prothromb Time International Ratio 1.1 (0.8-1.1) Activated Partial Thromboplast Time 28 SEC (24-38) Sodium Level 144 mmol/L (136-145) Potassium Level 4.4 mmol/L (3.5-5.1) Chloride Level 109 mmol/L (98-107) Carbon Dioxide Level 28 mmol/L (21-32) Anion Gap 7 (6-14) Blood Urea Nitrogen 24 mg/dL (7-20) Creatinine 1.7 mg/dL (0.6-1.0) Estimated GFR (Cockcroft-Gault) 29.5 BUN/Creatinine Ratio 14 (6-20) Glucose Level 124 mg/dL (70-99) Calcium Level 7.5 mg/dL (8.5-10.1) Total Bilirubin 0.2 mg/dL (0.2-1.0) Aspartate Amino Transf (AST/SGOT) 22 U/L (15-37) Alanine Aminotransferase (ALT/SGPT) 26 U/L (14-59) Alkaline Phosphatase 83 U/L (46-116) Total Protein 5.3 g/dL (6.4-8.2) Albumin 1.4 g/dL (3.4-5.0) Albumin/Globulin Ratio 0.4 (1.0-1.7) Images Images Single view chest dated 09/14/2018. Comparison made to 07/11/2018. Clinical indication: Hip fracture. FINDINGS: Single upright portable exam performed. Heart and mediastinal contours are stable. There is consolidation at the left lung base with blunting of left costophrenic sulcus. Nodular density in the right base likely represents nipple shadow. There is also a nodule at the right upper lobe that is unchanged, likely calcified granuloma. No pneumothorax. IMPRESSION: 1. Small left pleural effusion. Consolidation at the left base likely represents associated atelectasis. 2. Vague nodular focus at the right lung base, likely a nipple shadow. Suggest follow-up PA and lateral exam for better evaluation. Electronically signed by: Jake Gutierrez MD (09/14/2018 6:10 PM) [facility] Two-view right hip with AP pelvis dated 09/14/2018. No comparison available. CLINICAL INDICATION: Pain after fall. FINDINGS: Supine portable AP view pelvis and two-view right hip show complete fracture at the subcapital right femoral neck. There is mild superior lateral displacement and mild medial angulation. Overlying soft tissue swelling.. Pelvic ring is intact. Mild degenerative change of the bilateral hip joint. No additional fractures are seen. IMPRESSION: Right femoral neck fracture. Electronically signed by: Jake Gutierrez MD (09/14/2018 6:08 PM) [facility] VTE Prophylaxis Ordered VTE Prophylaxis Devices: No VTE Pharmacological Prophylaxi: Yes Assessment/Plan Assessment/Plan IMPRESSION: Right femoral neck fracture.acute MECHANICAL FALL ANXIETY HX GERD HX DEPRESSION normocytic anemia CKD BASELINE CR APPROX 2.0 Small left pleural effusion. Consolidation at the left base likely represents associated atelectasis. Vague nodular focus at the right lung base, likely a nipple shadow. Suggest follow-up PA and lateral exam for better evaluation. PERIPHERAL NEUROPATHY SEVERE protein-caloric malnutrition PLAN ADMIT ORTHO CONSULT dr MANN SHASTA MEDS DVT PROPHYLAXIS GI PROPHYLAXIS iv morphine pain control q 3-4 hrs CBC, RENAL PANEL IN AM npo p MN IV FLUID SUPPORT 58 MINUTES pt exam, chart review, > 50% of time with exam, chart review, pt care coordination DANIELE FRANKS MD Sep 14, 2018 20:07
[2018-09-14] MEDS ORDERED: cloNIDine HCL 0.1 MG TABLET PO PRN (20:30)
[2018-09-14] MEDS ORDERED: guaiFENesin ORAL 200 MG/10 ML LIQUID. PO PRN (20:30)
[2018-09-14] MEDS ORDERED: 0.9 % SODIUM CHLORIDE 3ML DISP.SYRIN. IV PRN (20:30)
[2018-09-14] MEDS ORDERED: MAG HYDROX/ALUMINUM HYD/SIMETH 30 ML ORAL.SUSP PO PRN (20:30)
[2018-09-14] MEDS ORDERED: IPRATRPIUM/ALBUTEROL 0.5/2.5MG 3 ML NEBU. NEB SCH (20:30)
[2018-09-14] MEDS ORDERED: SODIUM PHOSPHATES 19/7GM 133 ML ENEMA. PR PRN (20:30)
[2018-09-14] MEDS ORDERED: LORazepam 0.5 MG TABLET PO PRN (20:30)
[2018-09-14] MEDS ORDERED: ACETAMINOPHEN 325 MG TABLET. PO PRN (20:30)
[2018-09-14] MEDS ORDERED: ENOXAPARIN 30 MG/0.3 ML SYRINGE. SQ SCH (21:00)
[2018-09-14] MEDS: clonazePAM 1 MG TABLET PO SCH (21:00)
[2018-09-14] MEDS: SODIUM BICARBONATE 650 MG TABLET. PO SCH (21:00)
[2018-09-14] MEDS ORDERED: ALBUTEROL SULFATE 2.5 MG/3 ML NEBU. NEB PRN (21:45)
[2018-09-14] MEDS: MIRTAZAPINE 15 MG TABLET PO SCH (22:23)
[2018-09-14] MEDS: GABAPENTIN 400 MG CAPSULE. PO SCH (22:23)
[2018-09-14] MEDS: ARIPiprazole 5 MG TABLET PO SCH (22:24)
[2018-09-14 23:00] VITALS: BP 133/68
[2018-09-14] MEDS: IV NORMAL SALINE 1000ML BAG 1,000 ML IV SCH (23:06)
--- NOTE | 2018-09-14 23:50 | NUR ---
Pt arrived to unit at approx 1935 via cart accompanied by ED staff. History, assessment, and med rec completed. 2250- 16 fr sr catheter was placed with minimal difficulty and pt tolerated well. Clonopin was held due to mult other sleep meds given in addition to morphine 4 mg. Sodium bicarb was also held due to pts request. Pt has been oriented to room and call light is within reach. This RN will continue to monitor pt.
[2018-09-15] VITALS (13 sets, daily range): BP systolic 88–126; BP diastolic 43–65
[2018-09-15 04:00] LABS: BASO # 0.1 x10^3/uL (0.0-0.2); BASO % 1 % (0-3); EOS % 0 % (0-3); HEMATOCRIT 27.6 % (36.0-47.0); LYMPH # 1.7 x10^3/uL (1.0-4.8); LYMPH % 18 % (24-48); MEAN CORPUSCULAR HEMOGLOBIN 31 pg (25-35); MEAN CORPUSCULAR HGB CONC 33 g/dL (31-37); MEAN CORPUSCULAR VOLUME 96 fL (79-100); MONO # 0.8 x10^3/uL (0.0-1.1); MONO % 8 % (0-9); NEUT # 7.2 x10^3uL (1.8-7.7); NEUT % 74 % (31-73); PLATELET COUNT 257 x10^3/uL (140-400); RED BLOOD COUNT 2.88 x10^6/uL (3.50-5.40); RED CELL DISTRIBUTION WIDTH 16.5 % (11.5-14.5); WHITE BLOOD COUNT 9.7 x10^3/uL (4.0-11.0)
[2018-09-15 04:28] LABS: CALCIUM 7.3 mg/dL (8.5-10.1); CREATININE 1.6 mg/dL (0.6-1.0); GFR 31.7; POTASSIUM 4.5 mmol/L (3.5-5.1)
[2018-09-15] MEDS: MORPHINE SULFATE 4 MG/ML VIAL. IV PRN (06:20)
[2018-09-15] MEDS ORDERED: MORPHINE SULFATE 5 MG, KETOROLAC 30MG VIAL 30 MG, ROPIVacaine 0.5% PF 60 ML, EPINEPHrin... INT ART ONE ×5 (07:00)
[2018-09-15] MEDS: PANTOPRAZOLE 40 MG TABLET.DR. PO SCH ×2 (07:30→16:27)
[2018-09-15] MEDS: LEVOTHYROXINE 100 MCG TABLET PO SCH (07:30)
[2018-09-15] MEDS: CITALOPRAM 20 MG TABLET. PO SCH (07:52)
[2018-09-15] MEDS ORDERED: IV RINGERS,LACTATED 1000ML 1,000 ML IV SCH (08:22)
[2018-09-15] MEDS ORDERED: PROCHLORPERAZINE 10 MG/2 ML VIAL. IV PRN (08:30)
[2018-09-15] MEDS ORDERED: fentaNYL PF VIAL 100 MCG/2 ML VIAL IV PRN ×2 (08:30→09:00)
[2018-09-15] MEDS ORDERED: DEXAMETHASONE SOD PHOS 20 MG/5 ML VIAL. ONE (08:32)
[2018-09-15] MEDS ORDERED: ONDANSETRON PF 4 MG/2 ML VIAL. ONE (08:32)
[2018-09-15] MEDS ORDERED: PROPOFOL 20 ML IV ONE (08:33)
[2018-09-15] MEDS ORDERED: ePHEDrine PF IN SALINE 50 MG/10 ML SYRINGE. IV ONE (08:33)
[2018-09-15] MEDS ORDERED: PHENYLEPHRINE in 0.9% NACL PF 1 MG/10 ML SYRINGE. IV ONE (08:33)
[2018-09-15] MEDS ORDERED: ROCURONIUM 50 MG/5 ML VIAL. ONE (08:33)
[2018-09-15] MEDS ORDERED: LIDOCAINE 2% PF 5 ML VIAL. ONE (08:33)
--- NOTE | 2018-09-15 08:36 | PDOC2 ---
CONSULT Date of Consult Date of Consult DATE: 09/15/18 TIME: 08:33 Reason for Consult Reason for Consult: Right hip fracture Referring Physician Referring Physician: Ari Identification/Chief Complaint Chief Complaint Right hip pain Source Source: Patient History of Present Illness Reason for Visit: Patient is a pleasant 73-year-old female who is normally a community ambulator who had a ground-level fall yesterday and was unable to bear weight on her right hip. She had immediate pain and noted some mild deformity at her right leg and was brought into the emergency department due to the above reasons. She was evaluated and found have a displaced right femoral neck fracture. She is complaining of right hip pain, 9 out of 10, worse with any attempted weightbearing or movement. Pain does go down her thigh little ways, but no pain rating all the way down into her foot. It is better at rest. She denies hitting anything including her head on the way down. No other complaints or concerns this morning. Past Medical History Cardiovascular: No pertinent hx Pulmonary: No pertinent hx GI: Gastritis Heme/Onc: No pertinent hx Hepatobiliary: No pertinent hx Psych: No pertinent hx Rheumatologic: No pertinent hx Infectious disease: No pertinent hx Renal/: No pertinent hx Endocrine: No pertinent hx Past Surgical History Past Surgical History: Other Family History Family History: Hypertension Social History No ALCOHOL: none Drugs: None Lives: with Family Current Problem List Problem List Problems Medical Problems: (1) Fall Status: Acute (2) Hip fracture, right Status: Acute Current Medications Current Medications Current Medications Fentanyl Citrate (Fentanyl 2ml Vial) 25 mcg 1X ONCE IV Last administered on at 17:37; Start 09/14/18 at 17:30; Stop 09/14/18 at 17:31; Status DC Morphine Sulfate (Morphine Sulfate) 4 mg 1X ONCE IV Last administered on at 18:25; Start 09/14/18 at 18:15; Stop 09/14/18 at 18:17; Status DC Ondansetron HCl (Zofran) 4 mg PRN Q8HRS PRN IV NAUSEA/VOMITING; Start 09/14/18 at 19:15; Stop 09/14/18 at 20:36; Status DC Morphine Sulfate (Morphine Sulfate) 4 mg PRN Q2HR PRN IV PAIN Last administered on 09/15/18at 06:20; Start 09/14/18 at 19:15; Stop 09/15/18 at 19:14 Bupropion HCl (Wellbutrin Sr) 150 mg DAILY PO ; Start 09/15/18 at 09:00 Clonazepam (KlonoPIN) 1 mg BID PO ; Start 09/14/18 at 21:00 Levothyroxine Sodium (Synthroid) 100 mcg DAILYAC PO ; Start 09/15/18 at 07:30 Sodium Bicarbonate (Sodium Bicarbonate) 1,300 mg TID PO ; Start 09/14/18 at 21: 00 Aripiprazole (Abilify) 20 mg QHS PO Last administered on 09/14/18at 22:24; Start 09/14/18 at 21:00 Calcium/Vitamin D (Oscal D 500mg/ 200uts) 2 tab DAILY PO ; Start 09/15/18 at 09: 00 Citalopram Hydrobromide (CeleXA) 20 mg DAILY PO ; Start 09/15/18 at 09:00 Gabapentin (Neurontin) 1,200 mg BID PO Last administered on 09/14/18at 22:23; Start 09/14/18 at 21:00 Mirtazapine (Remeron) 30 mg QHS PO Last administered on 09/14/18at 22:23; Start 09/14/18 at 21:00 Multivitamins (Thera M Plus) 1 tab DAILY PO ; Start 09/15/18 at 09:00 Pantoprazole Sodium (Protonix) 40 mg BIDAC PO ; Start 09/15/18 at 07:30 Enoxaparin Sodium (Lovenox 30mg Syringe) 30 mg QHS SQ Last administered on 09/14at 22:23; Start 09/14/18 at 21:00 Sodium Chloride 1,000 ml @ 75 mls/hr [id number] IV Last administered on at 23:06; Start 09/14/18 at 20:30 Sodium Chloride (Normal Saline Flush 3ml) 3 ml QSHIFT PRN IV AFTER MEDS AND BLOOD DRAWS; Start 09/14/18 at 20:30 Ondansetron HCl (Zofran) 4 mg PRN Q4HRS PRN IV NAUSEA/VOMITING; Start 09/14/18 at 20:30 Acetaminophen (Tylenol) 650 mg PRN Q4HRS PRN PO TEMP OVER 100.4F OR MILD PAIN; Start 09/14/18 at 20:30 Al Hydroxide/Mg Hydroxide (Mylanta Plus Xs) 30 ml PRN DAILY PRN PO HEARTBURN / GAS; Start 09/14/18 at 20:30 Clonidine HCl (Catapres) 0.1 mg PRN Q6HRS PRN PO SBP>160 OR DBP>90; Start 09/14 at 20:30 Sodium Monofluorophosphate (Fleet Adult) 133 ml PRN DAILY PRN VA CONSTIPATION; Start 09/14/18 at 20:30 Albuterol/ Ipratropium (Duoneb) 3 ml Q4H NEB ; Start 09/14/18 at 20:30; Status Cancel Guaifenesin (Robitussin) 200 mg PRN Q4HRS PRN PO COUGH; Start 09/14/18 at 20:30 Lorazepam (Ativan) 0.5 mg PRN Q4HRS PRN PO ANXIETY / AGITATION; Start 09/14/18 at 20:30 Albuterol Sulfate (Ventolin Neb Soln) 2.5 mg PRN Q4HRS PRN NEB SHORTNESS OF BREATH; Start 09/14/18 at 21:45 Morphine Sulfate 5 mg/Ketorolac Tromethamine 30 mg/Ropivacaine 60 ml/ Epinephrine HCl 0.5 mg/Sodium Chloride 100 ml @ 100 mls/hr 1X ONCE INT ART ; Start 09/15/18 at 07:00; Stop 09/15/18 at 07:59; Status DC Fentanyl Citrate (Fentanyl 2ml Vial) 25 mcg PRN Q5MIN PRN IV MILD PAIN; Start 09/15/18 at 08:30; Stop 09/16/18 at 08:29; Status UNV Fentanyl Citrate (Fentanyl 2ml Vial) 50 mcg PRN Q5MIN PRN IV MODERATE TO SEVERE PAIN; Start 09/15/18 at 08:30; Stop 09/16/18 at 08:29; Status UNV Ringer's Solution 1,000 ml @ 30 mls/hr Q24H IV ; Start 09/15/18 at 08:22; Stop 09/15/18 at 20:21; Status UNV Prochlorperazine Edisylate (Compazine) 5 mg PACU PRN PRN IV NAUSEA, MRX1; Start 09/15/18 at 08:30; Stop 09/16/18 at 08:29; Status UNV Cefazolin Sodium 50 ml @ As Directed STK-MED ONCE IV ; Start 09/15/18 at 08:29; Stop 09/15/18 at 08:30; Status DC Enoxaparin Sodium (Lovenox 40mg Syringe) 40 mg Q24H SQ ; Start 09/16/18 at 08:30 ; Status UNV Active Scripts Active Reported Calcium + Vitamin D Tablet (Calcium Carbonate/Vitamin D3) 1 Each Tablet 2 Each PO DAILY Multivitamins (Multivitamin) 1 Each Tablet 1 Tab PO DAILY Sodium Bicarbonate 650 Mg Tablet 2 Tab PO TID Levothyroxine Sodium 100 Mcg Tablet 100 Mcg PO DAILYAC Abilify (Aripiprazole) 10 Mg Tablet 2 Tab PO HS Wellbutrin Sr (Bupropion Hcl) 150 Mg Tablet.er 150 Mg PO DAILY Omeprazole 40 Mg Capsule.dr 40 Mg PO BID Gabapentin 600 Mg Tablet 1,200 Mg PO BID Mirtazapine 30 Mg Tablet 30 Mg PO HS Clonazepam 1 Mg Tablet 1 Mg PO BID Citalopram Hbr (Citalopram Hydrobromide) 40 Mg Tablet 20 Mg PO DAILY Allergies Allergies: Coded Allergies: hydromorphone (Verified Allergy, Intermediate, Palpitations, 10/14/13) rosuvastatin (Verified Allergy, Mild, Nausea and Vomiting, 10/14/13) ROS General: No: Chills, Night Sweats, Fatigue, Malaise, Appetite, Other PSYCHOLOGICAL ROS: No: Anxiety, Behavioral Disorder, Concentration difficultie , Decreased libido, Depression, Disorientation, Hallucinations, Hostility, Irritablity, Memory difficulties, Mood Swings, Obsessive thoughts, Physical abuse, Sexual abuse, Sleep disturbances, Suicidal ideation, Other Eyes: No Blurry vision, No Decreased vision, No Double vision, No Dry eyes, No Excessive tearing, No Eye Pain, No Itchy Eyes, No Loss of vision, No Photophobia , No Scotomata, No Uses contacts, No Uses glasses, No Other HEENT: No: Heacaches, Visual Changes, Hearing change, Nasal congestion, Nasal discharge, Oral lesions, Sinus pain, Sore Throat, Epistaxis, Sneezing, Snoring, Tinnitus, Vertigo, Vocal changes, Other ALLERGY AND IMMUNOLOGY: No: Hives, Insect Bite Sensitivity, Itchy/Watery Eyes, Nasal Congestion, Post Nasal Drip, Seasonal Allergies, Other Hematological and Lymphatic: No: Bleeding Problems, Blood Clots, Blood Transfusions, Brusing, Night Sweats, Pallor, Swollen Lymph Nodes, Other ENDOCRINE: No: Breast Changes, Galactorrhea, Hair Pattern Changes, Hot Flashes , Malaise/lethargy, Mood Swings, Palpitations, Polydipsia/polyuria, Skin Changes , Temperature Intolerance, Unexpected Weight Changes, Other Respiratory: No: Cough, Hemoptysis, Orthopnea, Pleuritic Pain, Shortness of breath, SOB with excertion, Sputum Changes, Stridor, Tachypnea, Wheezing, Other Cardiovascular: No Chest Pain, No Palpitations, No Orthopnea, No Paroxysmal Noc. Dyspnea, No Edema, No Lt Headedness, No Other Gastrointestinal: No Nausea, No Vomiting, No Abdominal Pain, No Diarrhea, No Constipation, No Melena, No Hematochezia, No Other Genitourinary: No Dysuria, No Frequency, No Incontinence, No Hematuria, No Retention, No Discharge, No Urgency, No Pain, No Flank Pain, No Other, No , No , No , No , No , No , No Musculoskeletal: Yes Joint Pain, Yes Joint Stiffness, Yes Muscle Pain Neurological: No Behavorial Changes, No Bowel/Bladder ControlChng, No Confusion , No Dizziness, No Gait Disturbance, No Headaches, No Impaired Coord/balance, No Memory Loss, No Numbness/Tingling, No Seizures, No Speech Problems, No Tremors, No Visual Changes, No Weakness, No Other Skin: No Dry Skin, No Eczema, No Hair Changes, No Lumps, No Mole Changes, No Mottling, No Nail Changes, No Pruritus, No Rash, No Skin Lesion Changes, No Other, No Acne Physical Exam General: Alert, Oriented X3 HEENT: Atraumatic, EOMI Lungs: Other (respirations are unlabored with symmetric chest rise) Heart: Regular rate Abdomen: Soft, No tenderness Extremities: No edema, Normal pulses Skin: No rashes Neuro: Normal speech, Strength at 5/5 X4 ext, Sensation intact Psych/Mental Status: Mental status NL, Mood NL MUSCULOSKELETAL: Other (right lower extremity is slightly shorter and externally rotated. She can wiggle her toes distally. Toes are warm with good capillary refill. No tenderness at bony prominences of the ankles or knees bilaterally. She is tender diffusely over her right hip region.) Vitals VITALS Vital Signs Date Time Temp Pulse Resp B/P (MAP) Pulse Ox O2 Delivery O2 Flow Rate FiO2 09/15/18 08:15 99.8 82 12 136/65 95 Room Air 99.8 Labs Labs Laboratory Tests Test 09/14/18 17:25 09/15/18 02:30 White Blood Count 8.5 x10^3/uL (4.0-11.0) 9.7 x10^3/uL (4.0-11.0) Red Blood Count 3.03 x10^6/uL (3.50-5.40) 2.88 x10^6/uL (3.50-5.40) Hemoglobin 9.3 g/dL (12.0-15.5) 9.0 g/dL (12.0-15.5) Hematocrit 29.2 % (36.0-47.0) 27.6 % (36.0-47.0) Mean Corpuscular Volume 96 fL (79-100) 96 fL (79-100) Mean Corpuscular Hemoglobin 31 pg (25-35) 31 pg (25-35) Mean Corpuscular Hemoglobin Concent 32 g/dL (31-37) 33 g/dL (31-37) Red Cell Distribution Width 16.7 % (11.5-14.5) 16.5 % (11.5-14.5) Platelet Count 263 x10^3/uL (140-400) 257 x10^3/uL (140-400) Neutrophils (%) (Auto) 82 % (31-73) 74 % (31-73) Lymphocytes (%) (Auto) 12 % (24-48) 18 % (24-48) Monocytes (%) (Auto) 5 % (0-9) 8 % (0-9) Eosinophils (%) (Auto) 0 % (0-3) 0 % (0-3) Basophils (%) (Auto) 1 % (0-3) 1 % (0-3) Neutrophils # (Auto) 7.0 x10^3uL (1.8-7.7) 7.2 x10^3uL (1.8-7.7) Lymphocytes # (Auto) 1.1 x10^3/uL (1.0-4.8) 1.7 x10^3/uL (1.0-4.8) Monocytes # (Auto) 0.4 x10^3/uL (0.0-1.1) 0.8 x10^3/uL (0.0-1.1) Eosinophils # (Auto) 0.0 x10^3/uL (0.0-0.7) 0.0 x10^3/uL (0.0-0.7) Basophils # (Auto) 0.1 x10^3/uL (0.0-0.2) 0.1 x10^3/uL (0.0-0.2) Prothrombin Time 14.0 SEC (11.7-14.0) Prothromb Time International Ratio 1.1 (0.8-1.1) Activated Partial Thromboplast Time 28 SEC (24-38) Sodium Level 144 mmol/L (136-145) 143 mmol/L (136-145) Potassium Level 4.4 mmol/L (3.5-5.1) 4.5 mmol/L (3.5-5.1) Chloride Level 109 mmol/L (98-107) 109 mmol/L (98-107) Carbon Dioxide Level 28 mmol/L (21-32) 28 mmol/L (21-32) Anion Gap 7 (6-14) 6 (6-14) Blood Urea Nitrogen 24 mg/dL (7-20) 23 mg/dL (7-20) Creatinine 1.7 mg/dL (0.6-1.0) 1.6 mg/dL (0.6-1.0) Estimated GFR (Cockcroft-Gault) 29.5 31.7 BUN/Creatinine Ratio 14 (6-20) Glucose Level 124 mg/dL (70-99) 89 mg/dL (70-99) Calcium Level 7.5 mg/dL (8.5-10.1) 7.3 mg/dL (8.5-10.1) Total Bilirubin 0.2 mg/dL (0.2-1.0) Aspartate Amino Transf (AST/SGOT) 22 U/L (15-37) Alanine Aminotransferase (ALT/SGPT) 26 U/L (14-59) Alkaline Phosphatase 83 U/L (46-116) Total Protein 5.3 g/dL (6.4-8.2) Albumin 1.4 g/dL (3.4-5.0) Albumin/Globulin Ratio 0.4 (1.0-1.7) Laboratory Tests Test 09/14/18 17:25 09/15/18 02:30 White Blood Count 8.5 x10^3/uL (4.0-11.0) 9.7 x10^3/uL (4.0-11.0) Red Blood Count 3.03 x10^6/uL (3.50-5.40) 2.88 x10^6/uL (3.50-5.40) Hemoglobin 9.3 g/dL (12.0-15.5) 9.0 g/dL (12.0-15.5) Hematocrit 29.2 % (36.0-47.0) 27.6 % (36.0-47.0) Mean Corpuscular Volume 96 fL (79-100) 96 fL (79-100) Mean Corpuscular Hemoglobin 31 pg (25-35) 31 pg (25-35) Mean Corpuscular Hemoglobin Concent 32 g/dL (31-37) 33 g/dL (31-37) Red Cell Distribution Width 16.7 % (11.5-14.5) 16.5 % (11.5-14.5) Platelet Count 263 x10^3/uL (140-400) 257 x10^3/uL (140-400) Neutrophils (%) (Auto) 82 % (31-73) 74 % (31-73) Lymphocytes (%) (Auto) 12 % (24-48) 18 % (24-48) Monocytes (%) (Auto) 5 % (0-9) 8 % (0-9) Eosinophils (%) (Auto) 0 % (0-3) 0 % (0-3) Basophils (%) (Auto) 1 % (0-3) 1 % (0-3) Neutrophils # (Auto) 7.0 x10^3uL (1.8-7.7) 7.2 x10^3uL (1.8-7.7) Lymphocytes # (Auto) 1.1 x10^3/uL (1.0-4.8) 1.7 x10^3/uL (1.0-4.8) Monocytes # (Auto) 0.4 x10^3/uL (0.0-1.1) 0.8 x10^3/uL (0.0-1.1) Eosinophils # (Auto) 0.0 x10^3/uL (0.0-0.7) 0.0 x10^3/uL (0.0-0.7) Basophils # (Auto) 0.1 x10^3/uL (0.0-0.2) 0.1 x10^3/uL (0.0-0.2) Prothrombin Time 14.0 SEC (11.7-14.0) Prothromb Time International Ratio 1.1 (0.8-1.1) Activated Partial Thromboplast Time 28 SEC (24-38) Sodium Level 144 mmol/L (136-145) 143 mmol/L (136-145) Potassium Level 4.4 mmol/L (3.5-5.1) 4.5 mmol/L (3.5-5.1) Chloride Level 109 mmol/L (98-107) 109 mmol/L (98-107) Carbon Dioxide Level 28 mmol/L (21-32) 28 mmol/L (21-32) Anion Gap 7 (6-14) 6 (6-14) Blood Urea Nitrogen 24 mg/dL (7-20) 23 mg/dL (7-20) Creatinine 1.7 mg/dL (0.6-1.0) 1.6 mg/dL (0.6-1.0) Estimated GFR (Cockcroft-Gault) 29.5 31.7 BUN/Creatinine Ratio 14 (6-20) Glucose Level 124 mg/dL (70-99) 89 mg/dL (70-99) Calcium Level 7.5 mg/dL (8.5-10.1) 7.3 mg/dL (8.5-10.1) Total Bilirubin 0.2 mg/dL (0.2-1.0) Aspartate Amino Transf (AST/SGOT) 22 U/L (15-37) Alanine Aminotransferase (ALT/SGPT) 26 U/L (14-59) Alkaline Phosphatase 83 U/L (46-116) Total Protein 5.3 g/dL (6.4-8.2) Albumin 1.4 g/dL (3.4-5.0) Albumin/Globulin Ratio 0.4 (1.0-1.7) Images Images X-rays were interpreted by myself. Displaced right femoral neck fracture Assessment/Plan Assessment/Plan I discussed the risks, benefits, alternatives, and rationale to right hip hemiarthroplasty including bleeding, nerve and artery damage, chronic pain, expected rehabilitation, risk of blood clots, infection and possible sequela, and need for additional surgery, fracture, hardware problems, among others. She would like to proceed. MEME MANN II, MD Sep 15, 2018 08:36
[2018-09-15] MEDS: buPROPion SR 150 MG TABLET.SA PO SCH (09:00)
[2018-09-15] MEDS: GABAPENTIN 400 MG CAPSULE. PO SCH ×2 (09:00→21:53)
[2018-09-15] MEDS: clonazePAM 1 MG TABLET PO SCH ×2 (09:00→21:00)
[2018-09-15] MEDS: SODIUM BICARBONATE 650 MG TABLET. PO SCH ×3 (09:00→20:06)
[2018-09-15] MEDS ORDERED: ceFAZolin 1GM IVPB FOR OMNI 1 GM/50 ML BAG IV ONE (09:00)
[2018-09-15] MEDS: CALCIUM CARB/VIT D3 500/200 TABLET. PO SCH (09:00)
[2018-09-15] MEDS: MULTIVITAMIN with MINERAL TABLET. PO SCH (09:00)
--- NOTE | 2018-09-15 09:00 | PDOC ---
PROGRESS NOTES Chief Complaint Chief Complaint Right femoral neck fracture.acute MECHANICAL FALL ANXIETY HX GERD HX DEPRESSION normocytic anemia CKD BASELINE CR APPROX 2.0 Small left pleural effusion. Consolidation at the left base likely represents associated atelectasis. Vague nodular focus at the right lung base, likely a nipple shadow. Suggest follow-up PA and lateral exam for better evaluation. PERIPHERAL NEUROPATHY SEVERE protein-caloric malnutrition History of Present Illness History of Present Illness OUt having ortho OR PLAN: [place] post op labs Check vit D levels Routine post op care Vitals Vitals Vital Signs Date Time Temp Pulse Resp B/P (MAP) Pulse Ox O2 Delivery O2 Flow Rate FiO2 09/15/18 08:15 99.8 82 12 136/65 95 Room Air 99.8 Physical Exam General: Alert, Oriented X3 Heart: Regular rate Lungs: Clear Abdomen: Soft, No tenderness Extremities: No edema, Normal pulses Skin: No rashes Labs LABS Laboratory Tests Test 09/14/18 17:25 09/15/18 02:30 White Blood Count 8.5 x10^3/uL (4.0-11.0) 9.7 x10^3/uL (4.0-11.0) Red Blood Count 3.03 x10^6/uL (3.50-5.40) 2.88 x10^6/uL (3.50-5.40) Hemoglobin 9.3 g/dL (12.0-15.5) 9.0 g/dL (12.0-15.5) Hematocrit 29.2 % (36.0-47.0) 27.6 % (36.0-47.0) Mean Corpuscular Volume 96 fL (79-100) 96 fL (79-100) Mean Corpuscular Hemoglobin 31 pg (25-35) 31 pg (25-35) Mean Corpuscular Hemoglobin Concent 32 g/dL (31-37) 33 g/dL (31-37) Red Cell Distribution Width 16.7 % (11.5-14.5) 16.5 % (11.5-14.5) Platelet Count 263 x10^3/uL (140-400) 257 x10^3/uL (140-400) Neutrophils (%) (Auto) 82 % (31-73) 74 % (31-73) Lymphocytes (%) (Auto) 12 % (24-48) 18 % (24-48) Monocytes (%) (Auto) 5 % (0-9) 8 % (0-9) Eosinophils (%) (Auto) 0 % (0-3) 0 % (0-3) Basophils (%) (Auto) 1 % (0-3) 1 % (0-3) Neutrophils # (Auto) 7.0 x10^3uL (1.8-7.7) 7.2 x10^3uL (1.8-7.7) Lymphocytes # (Auto) 1.1 x10^3/uL (1.0-4.8) 1.7 x10^3/uL (1.0-4.8) Monocytes # (Auto) 0.4 x10^3/uL (0.0-1.1) 0.8 x10^3/uL (0.0-1.1) Eosinophils # (Auto) 0.0 x10^3/uL (0.0-0.7) 0.0 x10^3/uL (0.0-0.7) Basophils # (Auto) 0.1 x10^3/uL (0.0-0.2) 0.1 x10^3/uL (0.0-0.2) Prothrombin Time 14.0 SEC (11.7-14.0) Prothromb Time International Ratio 1.1 (0.8-1.1) Activated Partial Thromboplast Time 28 SEC (24-38) Sodium Level 144 mmol/L (136-145) 143 mmol/L (136-145) Potassium Level 4.4 mmol/L (3.5-5.1) 4.5 mmol/L (3.5-5.1) Chloride Level 109 mmol/L (98-107) 109 mmol/L (98-107) Carbon Dioxide Level 28 mmol/L (21-32) 28 mmol/L (21-32) Anion Gap 7 (6-14) 6 (6-14) Blood Urea Nitrogen 24 mg/dL (7-20) 23 mg/dL (7-20) Creatinine 1.7 mg/dL (0.6-1.0) 1.6 mg/dL (0.6-1.0) Estimated GFR (Cockcroft-Gault) 29.5 31.7 BUN/Creatinine Ratio 14 (6-20) Glucose Level 124 mg/dL (70-99) 89 mg/dL (70-99) Calcium Level 7.5 mg/dL (8.5-10.1) 7.3 mg/dL (8.5-10.1) Total Bilirubin 0.2 mg/dL (0.2-1.0) Aspartate Amino Transf (AST/SGOT) 22 U/L (15-37) Alanine Aminotransferase (ALT/SGPT) 26 U/L (14-59) Alkaline Phosphatase 83 U/L (46-116) Total Protein 5.3 g/dL (6.4-8.2) Albumin 1.4 g/dL (3.4-5.0) Albumin/Globulin Ratio 0.4 (1.0-1.7) Review of Systems Review of Systems out having OR Assessment and Plan Assessmemt and Plan Problems Medical Problems: (1) Fall Status: Acute (2) Hip fracture, right Status: Acute Comment Review of Relevant I have reviewed the following items isreal (where applicable) has been applied. Labs Laboratory Tests Test 09/14/18 17:25 09/15/18 02:30 White Blood Count 8.5 x10^3/uL (4.0-11.0) 9.7 x10^3/uL (4.0-11.0) Red Blood Count 3.03 x10^6/uL (3.50-5.40) 2.88 x10^6/uL (3.50-5.40) Hemoglobin 9.3 g/dL (12.0-15.5) 9.0 g/dL (12.0-15.5) Hematocrit 29.2 % (36.0-47.0) 27.6 % (36.0-47.0) Mean Corpuscular Volume 96 fL (79-100) 96 fL (79-100) Mean Corpuscular Hemoglobin 31 pg (25-35) 31 pg (25-35) Mean Corpuscular Hemoglobin Concent 32 g/dL (31-37) 33 g/dL (31-37) Red Cell Distribution Width 16.7 % (11.5-14.5) 16.5 % (11.5-14.5) Platelet Count 263 x10^3/uL (140-400) 257 x10^3/uL (140-400) Neutrophils (%) (Auto) 82 % (31-73) 74 % (31-73) Lymphocytes (%) (Auto) 12 % (24-48) 18 % (24-48) Monocytes (%) (Auto) 5 % (0-9) 8 % (0-9) Eosinophils (%) (Auto) 0 % (0-3) 0 % (0-3) Basophils (%) (Auto) 1 % (0-3) 1 % (0-3) Neutrophils # (Auto) 7.0 x10^3uL (1.8-7.7) 7.2 x10^3uL (1.8-7.7) Lymphocytes # (Auto) 1.1 x10^3/uL (1.0-4.8) 1.7 x10^3/uL (1.0-4.8) Monocytes # (Auto) 0.4 x10^3/uL (0.0-1.1) 0.8 x10^3/uL (0.0-1.1) Eosinophils # (Auto) 0.0 x10^3/uL (0.0-0.7) 0.0 x10^3/uL (0.0-0.7) Basophils # (Auto) 0.1 x10^3/uL (0.0-0.2) 0.1 x10^3/uL (0.0-0.2) Prothrombin Time 14.0 SEC (11.7-14.0) Prothromb Time International Ratio 1.1 (0.8-1.1) Activated Partial Thromboplast Time 28 SEC (24-38) Sodium Level 144 mmol/L (136-145) 143 mmol/L (136-145) Potassium Level 4.4 mmol/L (3.5-5.1) 4.5 mmol/L (3.5-5.1) Chloride Level 109 mmol/L (98-107) 109 mmol/L (98-107) Carbon Dioxide Level 28 mmol/L (21-32) 28 mmol/L (21-32) Anion Gap 7 (6-14) 6 (6-14) Blood Urea Nitrogen 24 mg/dL (7-20) 23 mg/dL (7-20) Creatinine 1.7 mg/dL (0.6-1.0) 1.6 mg/dL (0.6-1.0) Estimated GFR (Cockcroft-Gault) 29.5 31.7 BUN/Creatinine Ratio 14 (6-20) Glucose Level 124 mg/dL (70-99) 89 mg/dL (70-99) Calcium Level 7.5 mg/dL (8.5-10.1) 7.3 mg/dL (8.5-10.1) Total Bilirubin 0.2 mg/dL (0.2-1.0) Aspartate Amino Transf (AST/SGOT) 22 U/L (15-37) Alanine Aminotransferase (ALT/SGPT) 26 U/L (14-59) Alkaline Phosphatase 83 U/L (46-116) Total Protein 5.3 g/dL (6.4-8.2) Albumin 1.4 g/dL (3.4-5.0) Albumin/Globulin Ratio 0.4 (1.0-1.7) Laboratory Tests Test 09/14/18 17:25 09/15/18 02:30 White Blood Count 8.5 x10^3/uL (4.0-11.0) 9.7 x10^3/uL (4.0-11.0) Red Blood Count 3.03 x10^6/uL (3.50-5.40) 2.88 x10^6/uL (3.50-5.40) Hemoglobin 9.3 g/dL (12.0-15.5) 9.0 g/dL (12.0-15.5) Hematocrit 29.2 % (36.0-47.0) 27.6 % (36.0-47.0) Mean Corpuscular Volume 96 fL (79-100) 96 fL (79-100) Mean Corpuscular Hemoglobin 31 pg (25-35) 31 pg (25-35) Mean Corpuscular Hemoglobin Concent 32 g/dL (31-37) 33 g/dL (31-37) Red Cell Distribution Width 16.7 % (11.5-14.5) 16.5 % (11.5-14.5) Platelet Count 263 x10^3/uL (140-400) 257 x10^3/uL (140-400) Neutrophils (%) (Auto) 82 % (31-73) 74 % (31-73) Lymphocytes (%) (Auto) 12 % (24-48) 18 % (24-48) Monocytes (%) (Auto) 5 % (0-9) 8 % (0-9) Eosinophils (%) (Auto) 0 % (0-3) 0 % (0-3) Basophils (%) (Auto) 1 % (0-3) 1 % (0-3) Neutrophils # (Auto) 7.0 x10^3uL (1.8-7.7) 7.2 x10^3uL (1.8-7.7) Lymphocytes # (Auto) 1.1 x10^3/uL (1.0-4.8) 1.7 x10^3/uL (1.0-4.8) Monocytes # (Auto) 0.4 x10^3/uL (0.0-1.1) 0.8 x10^3/uL (0.0-1.1) Eosinophils # (Auto) 0.0 x10^3/uL (0.0-0.7) 0.0 x10^3/uL (0.0-0.7) Basophils # (Auto) 0.1 x10^3/uL (0.0-0.2) 0.1 x10^3/uL (0.0-0.2) Prothrombin Time 14.0 SEC (11.7-14.0) Prothromb Time International Ratio 1.1 (0.8-1.1) Activated Partial Thromboplast Time 28 SEC (24-38) Sodium Level 144 mmol/L (136-145) 143 mmol/L (136-145) Potassium Level 4.4 mmol/L (3.5-5.1) 4.5 mmol/L (3.5-5.1) Chloride Level 109 mmol/L (98-107) 109 mmol/L (98-107) Carbon Dioxide Level 28 mmol/L (21-32) 28 mmol/L (21-32) Anion Gap 7 (6-14) 6 (6-14) Blood Urea Nitrogen 24 mg/dL (7-20) 23 mg/dL (7-20) Creatinine 1.7 mg/dL (0.6-1.0) 1.6 mg/dL (0.6-1.0) Estimated GFR (Cockcroft-Gault) 29.5 31.7 BUN/Creatinine Ratio 14 (6-20) Glucose Level 124 mg/dL (70-99) 89 mg/dL (70-99) Calcium Level 7.5 mg/dL (8.5-10.1) 7.3 mg/dL (8.5-10.1) Total Bilirubin 0.2 mg/dL (0.2-1.0) Aspartate Amino Transf (AST/SGOT) 22 U/L (15-37) Alanine Aminotransferase (ALT/SGPT) 26 U/L (14-59) Alkaline Phosphatase 83 U/L (46-116) Total Protein 5.3 g/dL (6.4-8.2) Albumin 1.4 g/dL (3.4-5.0) Albumin/Globulin Ratio 0.4 (1.0-1.7) Medications Current Medications Fentanyl Citrate (Fentanyl 2ml Vial) 25 mcg 1X ONCE IV Last administered on at 17:37; Start 09/14/18 at 17:30; Stop 09/14/18 at 17:31; Status DC Morphine Sulfate (Morphine Sulfate) 4 mg 1X ONCE IV Last administered on at 18:25; Start 09/14/18 at 18:15; Stop 09/14/18 at 18:17; Status DC Ondansetron HCl (Zofran) 4 mg PRN Q8HRS PRN IV NAUSEA/VOMITING; Start 09/14/18 at 19:15; Stop 09/14/18 at 20:36; Status DC Morphine Sulfate (Morphine Sulfate) 4 mg PRN Q2HR PRN IV PAIN Last administered on 09/15/18at 06:20; Start 09/14/18 at 19:15; Stop 09/15/18 at 19:14 Bupropion HCl (Wellbutrin Sr) 150 mg DAILY PO ; Start 09/15/18 at 09:00 Clonazepam (KlonoPIN) 1 mg BID PO ; Start 09/14/18 at 21:00 Levothyroxine Sodium (Synthroid) 100 mcg DAILYAC PO ; Start 09/15/18 at 07:30 Sodium Bicarbonate (Sodium Bicarbonate) 1,300 mg TID PO ; Start 09/14/18 at 21: 00 Aripiprazole (Abilify) 20 mg QHS PO Last administered on 09/14/18at 22:24; Start 09/14/18 at 21:00 Calcium/Vitamin D (Oscal D 500mg/ 200uts) 2 tab DAILY PO ; Start 09/15/18 at 09: 00 Citalopram Hydrobromide (CeleXA) 20 mg DAILY PO ; Start 09/15/18 at 09:00 Gabapentin (Neurontin) 1,200 mg BID PO Last administered on 09/14/18at 22:23; Start 09/14/18 at 21:00 Mirtazapine (Remeron) 30 mg QHS PO Last administered on 09/14/18at 22:23; Start 09/14/18 at 21:00 Multivitamins (Thera M Plus) 1 tab DAILY PO ; Start 09/15/18 at 09:00 Pantoprazole Sodium (Protonix) 40 mg BIDAC PO ; Start 09/15/18 at 07:30 Enoxaparin Sodium (Lovenox 30mg Syringe) 30 mg QHS SQ Last administered on 09/14at 22:23; Start 09/14/18 at 21:00; Stop 09/15/18 at 08:43; Status DC Sodium Chloride 1,000 ml @ 75 mls/hr [id number] IV Last administered on at 23:06; Start 09/14/18 at 20:30 Sodium Chloride (Normal Saline Flush 3ml) 3 ml QSHIFT PRN IV AFTER MEDS AND BLOOD DRAWS; Start 09/14/18 at 20:30 Ondansetron HCl (Zofran) 4 mg PRN Q4HRS PRN IV NAUSEA/VOMITING; Start 09/14/18 at 20:30 Acetaminophen (Tylenol) 650 mg PRN Q4HRS PRN PO TEMP OVER 100.4F OR MILD PAIN; Start 09/14/18 at 20:30 Al Hydroxide/Mg Hydroxide (Mylanta Plus Xs) 30 ml PRN DAILY PRN PO HEARTBURN / GAS; Start 09/14/18 at 20:30 Clonidine HCl (Catapres) 0.1 mg PRN Q6HRS PRN PO SBP>160 OR DBP>90; Start 09/14 at 20:30 Sodium Monofluorophosphate (Fleet Adult) 133 ml PRN DAILY PRN [place] CONSTIPATION; Start 09/14/18 at 20:30 Albuterol/ Ipratropium (Duoneb) 3 ml Q4H NEB ; Start 09/14/18 at 20:30; Status Cancel Guaifenesin (Robitussin) 200 mg PRN Q4HRS PRN PO COUGH; Start 09/14/18 at 20:30 Lorazepam (Ativan) 0.5 mg PRN Q4HRS PRN PO ANXIETY / AGITATION; Start 09/14/18 at 20:30 Albuterol Sulfate (Ventolin Neb Soln) 2.5 mg PRN Q4HRS PRN NEB SHORTNESS OF BREATH; Start 09/14/18 at 21:45 Morphine Sulfate 5 mg/Ketorolac Tromethamine 30 mg/Ropivacaine 60 ml/ Epinephrine HCl 0.5 mg/Sodium Chloride 100 ml @ 100 mls/hr 1X ONCE INT ART ; Start 09/15/18 at 07:00; Stop 09/15/18 at 07:59; Status DC Fentanyl Citrate (Fentanyl 2ml Vial) 25 mcg PRN Q5MIN PRN IV MILD PAIN; Start 09/15/18 at 09:00; Stop 09/15/18 at 20:00 Fentanyl Citrate (Fentanyl 2ml Vial) 50 mcg PRN Q5MIN PRN IV MODERATE TO SEVERE PAIN; Start 09/15/18 at 08:30; Stop 09/15/18 at 20:00 Ringer's Solution 1,000 ml @ 30 mls/hr Q24H IV ; Start 09/15/18 at 08:22; Stop 09/15/18 at 20:21 Prochlorperazine Edisylate (Compazine) 5 mg PACU PRN PRN IV NAUSEA, MRX1; Start 09/15/18 at 08:30; Stop 09/15/18 at 20:00 Cefazolin Sodium 50 ml @ As Directed STK-MED ONCE IV ; Start 09/15/18 at 08:29; Stop 09/15/18 at 08:30; Status DC Enoxaparin Sodium (Lovenox 30mg Syringe) 30 mg Q24H SQ ; Start 09/16/18 at 09:00 Dexamethasone Sodium Phosphate (Decadron) 20 mg STK-MED ONCE .ROUTE ; Start at 08:32; Stop 09/15/18 at 08:33; Status DC Ondansetron HCl (Zofran) 4 mg STK-MED ONCE .ROUTE ; Start 09/15/18 at 08:32; Stop 09/15/18 at 08:33; Status DC Ephedrine Sulfate (ePHEDrine PF IN SALINE SYRINGE) 50 mg STK-MED ONCE IV ; Start 09/15/18 at 08:33; Stop 09/15/18 at 08:34; Status DC Phenylephrine HCl (PHENYLEPHRINE in 0.9% NACL PF) 1 mg STK-MED ONCE IV ; Start 09/15/18 at 08:33; Stop 09/15/18 at 08:34; Status DC Propofol 20 ml @ As Directed STK-MED ONCE IV ; Start 09/15/18 at 08:33; Stop at 08:34; Status DC Lidocaine HCl (Lidocaine Pf 2% Vial) 5 ml STK-MED ONCE .ROUTE ; Start 09/15/18 at 08:33; Stop 09/15/18 at 08:34; Status DC Rocuronium [place] (Zemuron) 50 mg STK-MED ONCE .ROUTE ; Start 09/15/18 at 08:33 ; Stop 09/15/18 at 08:34; Status DC Active Scripts Active Reported Calcium + Vitamin D Tablet (Calcium Carbonate/Vitamin D3) 1 Each Tablet 2 Each PO DAILY Multivitamins (Multivitamin) 1 Each Tablet 1 Tab PO DAILY Sodium Bicarbonate 650 Mg Tablet 2 Tab PO TID Levothyroxine Sodium 100 Mcg Tablet 100 Mcg PO DAILYAC Abilify (Aripiprazole) 10 Mg Tablet 2 Tab PO HS Wellbutrin Sr (Bupropion Hcl) 150 Mg Tablet.er 150 Mg PO DAILY Omeprazole 40 Mg Capsule.dr 40 Mg PO BID Gabapentin 600 Mg Tablet 1,200 Mg PO BID Mirtazapine 30 Mg Tablet 30 Mg PO HS Clonazepam 1 Mg Tablet 1 Mg PO BID Citalopram Hbr (Citalopram Hydrobromide) 40 Mg Tablet 20 Mg PO DAILY Vitals/I & O Vital Sign - Last 24 Hours 09/14/18 09/14/18 09/14/18 09/14/18 17:05 17:37 17:38 17:49 Temp 98.4 98.4 Pulse 77 75 76 Resp 16 16 19 B/P (MAP) 165/67 (99) 158/68 (98) 141/68 (92) Pulse Ox 96 96 95 96 O2 Delivery Room Air Room Air Room Air Room Air 09/14/18 09/14/18 09/14/18 09/14/18 18:11 18:15 18:25 19:08 Pulse 75 74 Resp 22 16 18 14 B/P (MAP) 154/69 (97) 135/64 (87) Pulse Ox 96 96 96 94 O2 Delivery Room Air Room Air Room Air Room Air 09/14/18 09/14/18 09/14/18 09/14/18 19:11 19:45 20:00 23:00 Temp 99.5 99.4 99.5 99.4 Pulse 75 86 Resp 14 18 18 B/P (MAP) 117/66 (83) 133/68 (89) Pulse Ox 97 92 O2 Delivery Room Air 09/15/18 09/15/18 09/15/18 09/15/18 03:00 07:00 07:39 08:00 Temp 98.3 97.9 98.3 97.9 Pulse 84 92 Resp 20 B/P (MAP) 104/ 91/47 (62) Pulse Ox 94 90 O2 Delivery Room Air Room Air Room Air 09/15/18 08:15 Temp 99.8 99.8 Pulse 82 Resp 12 B/P (MAP) 136/65 Pulse Ox 95 O2 Delivery Room Air Intake and Output 09/14/18 09/14/18 09/15/18 14:59 22:59 06:59 Intake Total 240 ml Balance 240 ml SHANI OCHOA MD Sep 15, 2018 09:00
[2018-09-15] MEDS ORDERED: SEVOFLURANE 61 TO 120 MINUTES. IH ONE (09:04)
[2018-09-15] MEDS ORDERED: NEOSTIGMINE METHYLSULFATE 5 MG/5 ML SYRINGE. ONE (09:15)
[2018-09-15] MEDS ORDERED: GLYCOPYRROLATE 1 MG/5 ML VIAL. ONE (09:15)
[2018-09-15] MEDS: IV NORMAL SALINE 1000ML BAG 1,000 ML IV SCH ×2 (09:50→23:10)
--- NOTE | 2018-09-15 10:32 | PDOC4 ---
Operative Note Operative Note Date of procedure: 09/15/2018 Surgeon: Jamey Kramert.: Angelica Morris, certified nurse Preoperative diagnosis: Displaced closed right femoral neck fracture Postoperative diagnosis: Same Procedure performed: Right hip hemiarthroplasty Anesthesia: Gen. Complications: none Blood loss: 150mL Findings: Acute femoral neck fracture Components inserted: Mcclendon and nephew cemented Synergy size 9 stem with a distal centralizer and a 42 mm cobalt chrome +0 head Reason for procedure: Patient is an elderly female with a history of a ground- level fall. Please see my consult note for further details. I discussion of the risks, benefits, and alternatives after I evaluated the patient and reviewed the imaging with her and she wished to proceed with surgery. Description of procedure: Patient was greeted in the preoperative area by myself for the correct extremity was verified and marked. She was taken back to the operative suite and antibiotics were started as she was brought back. Once in the operating room, she had successful induction of a general anesthetic and was then transferred supine to the operating room table where she was placed in the lateral decubitus position with the right side up. All down pressure points were padded, axillary roll was used, and she was secured to the bed with our hip positioning device. Right lower extremity and hip were prepped and draped in our usual sterile fashion including an [place]. Preoperative timeout was conducted. Surface anatomy was then palpated and marked. I kelly a line from my standard posterolateral skin incision. Skin was incised with a scalpel and dissected subcutaneous tissue and cauterized bleeders with electrocautery until identified the fascia. Adherent subcutaneous tissues tissue and swept aside with a [place] elevator for better identification of the fascia for later repair. Fascia was incised in line with the skin incision. Hemorrhagic bursal tissue was excised carefully. Identified the quadratus and piriformis. I took these down with electrocautery. I incised capsule in a T- type incision and tag ends of this for later repair. I Identified the fracture site. I palpated and marked on her femoral neck about 1 cm proximal to the lesser trochanter and then made my neck cut here. The bony pieces were delivered from the operative field. The femoral head was delivered from the acetabulum with the assistance of a shoehorn device and a corkscrew. I inspected the acetabulum, she had some wear. He was thoroughly irrigated out, no loose debris was present. After this, repositioned the leg and introduce my proximal femoral elevator. I began broaching and broached to the above size. I then trialed head and neck combinations. After this, all trial components were removed and the operative field including the femoral canal and acetabulum were thoroughly irrigated. I then cemented in place my stem and held it in position until the cement polymerized. I then re-trialed and selected the above size. I then removed the trial components after dislocating the hip. The acetabulum was again inspected make sure there was no loose debris. The operative field was again irrigated out. I then washed and dried the [place] taper region and gently impacted my cobalt chrome ball into position. I tested range of motion, stability, and leg lengths and was satisfied. After her this, I closed capsule with simple interrupted #2 Ethibond. The piriformis was reapproximated through drill tunnels. The operative field was then thoroughly irrigated out again. I then closed fascia with running #2 Quill suture. Inverted interrupted 2-0 Vicryl was used for subcutaneous tissue. [place] were used for skin. The wound was then cleansed and dried and our incisional wound VAC was applied.Prior to my closure , all counts were correct 2 and I had injected my periarticular mixture into the dequan-incisional soft tissues. No complications. Surgery was well tolerated by the patient. At the conclusion, she was laid supine and transferred gently supine to the hospital bed and taken to the PACU in stable and extubated condition. Postoperative plan will be to maintain her on routine DVT and antibiotic prophylaxis postoperatively. PT and OT will work with her as well, she can weight-bear as tolerated. Ill follow along with her postoperative course. JAMEY MANN II, MD Sep 15, 2018 10:32
--- NOTE | 2018-09-15 12:53 | EKG ---
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
[2018-09-15] MEDS: ceFAZolin SODIUM 1 GM in IV DEXTROSE 5% 50 ML IV SCH ×2 (15:11→21:55)
[2018-09-15] MEDS: oxyCODONE/APAP 5/325 1 TAB TABLET PO PRN (21:52)
[2018-09-15] MEDS: ARIPiprazole 5 MG TABLET PO SCH (21:52)
[2018-09-15] MEDS: MIRTAZAPINE 15 MG TABLET PO SCH (21:53)
[2018-09-16] VITALS (12 sets, daily range): BP systolic 99–146; BP diastolic 47–75
[2018-09-16] MEDS: ceFAZolin SODIUM 1 GM in IV DEXTROSE 5% 50 ML IV SCH (02:45)
[2018-09-16 04:12] LABS: BASO % 0 % (0-3); EOS % 0 % (0-3); HEMATOCRIT 21.4 % (36.0-47.0); LYMPH # 1.8 x10^3/uL (1.0-4.8); LYMPH % 25 % (24-48); MEAN CORPUSCULAR HEMOGLOBIN 31 pg (25-35); MEAN CORPUSCULAR HGB CONC 32 g/dL (31-37); MEAN CORPUSCULAR VOLUME 96 fL (79-100); MONO # 0.6 x10^3/uL (0.0-1.1); MONO % 8 % (0-9); NEUT # 4.8 x10^3uL (1.8-7.7); NEUT % 66 % (31-73); PLATELET COUNT 204 x10^3/uL (140-400); RED BLOOD COUNT 2.23 x10^6/uL (3.50-5.40); RED CELL DISTRIBUTION WIDTH 16.6 % (11.5-14.5); WHITE BLOOD COUNT 7.3 x10^3/uL (4.0-11.0)
--- NOTE | 2018-09-16 04:47 | NUR ---
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 Currently she has weeping and significant swelling to Left arm. Dry towel placed under her arm. Also 3+ pitting edema in maria r legs. Will continue to monitor.
[2018-09-16 04:56] LABS: HEMOGLOBIN 6.9 g/dL (12.0-15.5)
[2018-09-16 05:26] LABS: CALCIUM 7.2 mg/dL (8.5-10.1); CREATININE 1.7 mg/dL (0.6-1.0); GFR 29.5; POTASSIUM 4.4 mmol/L (3.5-5.1)
[2018-09-16] MEDS: PANTOPRAZOLE 40 MG TABLET.DR. PO SCH ×2 (06:01→15:33)
[2018-09-16] MEDS: LEVOTHYROXINE 100 MCG TABLET PO SCH (06:01)
[2018-09-16] MEDS: SODIUM BICARBONATE 650 MG TABLET. PO SCH ×3 (07:22→21:23)
--- NOTE | 2018-09-16 08:33 | PDOC ---
PROGRESS NOTES Chief Complaint Chief Complaint Right femoral neck fracture.acute MECHANICAL FALL ANXIETY HX GERD HX DEPRESSION Acute normocytic anemia CKD BASELINE CR APPROX 2.0 Small left pleural effusion. Consolidation at the left base likely represents associated atelectasis. Vague nodular focus at the right lung base, likely a nipple shadow. Suggest follow-up PA and lateral exam for better evaluation. PERIPHERAL NEUROPATHY SEVERE protein-caloric malnutrition History of Present Illness History of Present Illness S/p right hip hemiarthroplasty Hb 6.9. She is feeling very weak this morning and dizzy. No CP or shortness of breath PLAN: PT for dizziness 1u PRBC for Hb of 6.9 [facility] post op labs Check vit D levels Routine post op care Vitals Vitals Vital Signs Date Time Temp Pulse Resp B/P (MAP) Pulse Ox O2 Delivery O2 Flow Rate FiO2 09/16/18 07:00 98.4 77 18 137/63 (87) 95 Room Air 98.4 09/16/18 03:00 2.0 Physical Exam General: Alert, Oriented X3 Heart: Regular rate Lungs: Clear Abdomen: Soft, No tenderness Extremities: No edema, Normal pulses Skin: No rashes Labs LABS Laboratory Tests Test 09/16/18 03:10 White Blood Count 7.3 x10^3/uL (4.0-11.0) Red Blood Count 2.23 x10^6/uL (3.50-5.40) Hemoglobin 6.9 g/dL (12.0-15.5) Hematocrit 21.4 % (36.0-47.0) Mean Corpuscular Volume 96 fL (79-100) Mean Corpuscular Hemoglobin 31 pg (25-35) Mean Corpuscular Hemoglobin Concent 32 g/dL (31-37) Red Cell Distribution Width 16.6 % (11.5-14.5) Platelet Count 204 x10^3/uL (140-400) Neutrophils (%) (Auto) 66 % (31-73) Lymphocytes (%) (Auto) 25 % (24-48) Monocytes (%) (Auto) 8 % (0-9) Eosinophils (%) (Auto) 0 % (0-3) Basophils (%) (Auto) 0 % (0-3) Neutrophils # (Auto) 4.8 x10^3uL (1.8-7.7) Lymphocytes # (Auto) 1.8 x10^3/uL (1.0-4.8) Monocytes # (Auto) 0.6 x10^3/uL (0.0-1.1) Eosinophils # (Auto) 0.0 x10^3/uL (0.0-0.7) Basophils # (Auto) 0.0 x10^3/uL (0.0-0.2) Sodium Level 142 mmol/L (136-145) Potassium Level 4.4 mmol/L (3.5-5.1) Chloride Level 109 mmol/L (98-107) Carbon Dioxide Level 28 mmol/L (21-32) Anion Gap 5 (6-14) Blood Urea Nitrogen 25 mg/dL (7-20) Creatinine 1.7 mg/dL (0.6-1.0) Estimated GFR (Cockcroft-Gault) 29.5 Glucose Level 100 mg/dL (70-99) Calcium Level 7.2 mg/dL (8.5-10.1) Assessment and Plan Assessmemt and Plan Problems Medical Problems: (1) Fall Status: Acute (2) Hip fracture, right Status: Acute Comment Review of Relevant I have reviewed the following items isreal (where applicable) has been applied. Labs Laboratory Tests Test 09/14/18 17:25 09/15/18 02:30 09/15/18 06:30 09/16/18 03:10 White Blood Count 8.5 x10^3/uL (4.0-11.0) 9.7 x10^3/uL (4.0-11.0) 7.3 x10^3/uL (4.0-11.0) Red Blood Count 3.03 x10^6/uL (3.50-5.40) 2.88 x10^6/uL (3.50-5.40) 2.23 x10^6/uL (3.50-5.40) Hemoglobin 9.3 g/dL (12.0-15.5) 9.0 g/dL (12.0-15.5) 6.9 g/dL (12.0-15.5) Hematocrit 29.2 % (36.0-47.0) 27.6 % (36.0-47.0) 21.4 % (36.0-47.0) Mean Corpuscular Volume 96 fL (79-100) 96 fL (79-100) 96 fL (79-100) Mean Corpuscular Hemoglobin 31 pg (25-35) 31 pg (25-35) 31 pg (25-35) Mean Corpuscular Hemoglobin Concent 32 g/dL (31-37) 33 g/dL (31-37) 32 g/dL (31-37) Red Cell Distribution Width 16.7 % (11.5-14.5) 16.5 % (11.5-14.5) 16.6 % (11.5-14.5) Platelet Count 263 x10^3/uL (140-400) 257 x10^3/uL (140-400) 204 x10^3/uL (140-400) Neutrophils (%) (Auto) 82 % (31-73) 74 % (31-73) 66 % (31-73) Lymphocytes (%) (Auto) 12 % (24-48) 18 % (24-48) 25 % (24-48) Monocytes (%) (Auto) 5 % (0-9) 8 % (0-9) 8 % (0-9) Eosinophils (%) (Auto) 0 % (0-3) 0 % (0-3) 0 % (0-3) Basophils (%) (Auto) 1 % (0-3) 1 % (0-3) 0 % (0-3) Neutrophils # (Auto) 7.0 x10^3uL (1.8-7.7) 7.2 x10^3uL (1.8-7.7) 4.8 x10^3uL (1.8-7.7) Lymphocytes # (Auto) 1.1 x10^3/uL (1.0-4.8) 1.7 x10^3/uL (1.0-4.8) 1.8 x10^3/uL (1.0-4.8) Monocytes # (Auto) 0.4 x10^3/uL (0.0-1.1) 0.8 x10^3/uL (0.0-1.1) 0.6 x10^3/uL (0.0-1.1) Eosinophils # (Auto) 0.0 x10^3/uL (0.0-0.7) 0.0 x10^3/uL (0.0-0.7) 0.0 x10^3/uL (0.0-0.7) Basophils # (Auto) 0.1 x10^3/uL (0.0-0.2) 0.1 x10^3/uL (0.0-0.2) 0.0 x10^3/uL (0.0-0.2) Prothrombin Time 14.0 SEC (11.7-14.0) Prothromb Time International Ratio 1.1 (0.8-1.1) Activated Partial Thromboplast Time 28 SEC (24-38) Sodium Level 144 mmol/L (136-145) 143 mmol/L (136-145) 142 mmol/L (136-145) Potassium Level 4.4 mmol/L (3.5-5.1) 4.5 mmol/L (3.5-5.1) 4.4 mmol/L (3.5-5.1) Chloride Level 109 mmol/L (98-107) 109 mmol/L (98-107) 109 mmol/L (98-107) Carbon Dioxide Level 28 mmol/L (21-32) 28 mmol/L (21-32) 28 mmol/L (21-32) Anion Gap 7 (6-14) 6 (6-14) 5 (6-14) Blood Urea Nitrogen 24 mg/dL (7-20) 23 mg/dL (7-20) 25 mg/dL (7-20) Creatinine 1.7 mg/dL (0.6-1.0) 1.6 mg/dL (0.6-1.0) 1.7 mg/dL (0.6-1.0) Estimated GFR (Cockcroft-Gault) 29.5 31.7 29.5 BUN/Creatinine Ratio 14 (6-20) Glucose Level 124 mg/dL (70-99) 89 mg/dL (70-99) 100 mg/dL (70-99) Calcium Level 7.5 mg/dL (8.5-10.1) 7.3 mg/dL (8.5-10.1) 7.2 mg/dL (8.5-10.1) Total Bilirubin 0.2 mg/dL (0.2-1.0) Aspartate Amino Transf (AST/SGOT) 22 U/L (15-37) Alanine Aminotransferase (ALT/SGPT) 26 U/L (14-59) Alkaline Phosphatase 83 U/L (46-116) Total Protein 5.3 g/dL (6.4-8.2) Albumin 1.4 g/dL (3.4-5.0) Albumin/Globulin Ratio 0.4 (1.0-1.7) Nasal Screen MRSA (PCR) Negative (Negative) Laboratory Tests Test 09/16/18 03:10 White Blood Count 7.3 x10^3/uL (4.0-11.0) Red Blood Count 2.23 x10^6/uL (3.50-5.40) Hemoglobin 6.9 g/dL (12.0-15.5) Hematocrit 21.4 % (36.0-47.0) Mean Corpuscular Volume 96 fL (79-100) Mean Corpuscular Hemoglobin 31 pg (25-35) Mean Corpuscular Hemoglobin Concent 32 g/dL (31-37) Red Cell Distribution Width 16.6 % (11.5-14.5) Platelet Count 204 x10^3/uL (140-400) Neutrophils (%) (Auto) 66 % (31-73) Lymphocytes (%) (Auto) 25 % (24-48) Monocytes (%) (Auto) 8 % (0-9) Eosinophils (%) (Auto) 0 % (0-3) Basophils (%) (Auto) 0 % (0-3) Neutrophils # (Auto) 4.8 x10^3uL (1.8-7.7) Lymphocytes # (Auto) 1.8 x10^3/uL (1.0-4.8) Monocytes # (Auto) 0.6 x10^3/uL (0.0-1.1) Eosinophils # (Auto) 0.0 x10^3/uL (0.0-0.7) Basophils # (Auto) 0.0 x10^3/uL (0.0-0.2) Sodium Level 142 mmol/L (136-145) Potassium Level 4.4 mmol/L (3.5-5.1) Chloride Level 109 mmol/L (98-107) Carbon Dioxide Level 28 mmol/L (21-32) Anion Gap 5 (6-14) Blood Urea Nitrogen 25 mg/dL (7-20) Creatinine 1.7 mg/dL (0.6-1.0) Estimated GFR (Cockcroft-Gault) 29.5 Glucose Level 100 mg/dL (70-99) Calcium Level 7.2 mg/dL (8.5-10.1) Medications Current Medications Fentanyl Citrate (Fentanyl 2ml Vial) 25 mcg 1X ONCE IV Last administered on at 17:37; Start 09/14/18 at 17:30; Stop 09/14/18 at 17:31; Status DC Morphine Sulfate (Morphine Sulfate) 4 mg 1X ONCE IV Last administered on at 18:25; Start 09/14/18 at 18:15; Stop 09/14/18 at 18:17; Status DC Ondansetron HCl (Zofran) 4 mg PRN Q8HRS PRN IV NAUSEA/VOMITING; Start 09/14/18 at 19:15; Stop 09/14/18 at 20:36; Status DC Morphine Sulfate (Morphine Sulfate) 4 mg PRN Q2HR PRN IV PAIN Last administered on 09/15/18at 06:20; Start 09/14/18 at 19:15; Stop 09/15/18 at 19:14 ; Status DC Bupropion HCl (Wellbutrin Sr) 150 mg DAILY PO ; Start 09/15/18 at 09:00 Clonazepam (KlonoPIN) 1 mg BID PO ; Start 09/14/18 at 21:00 Levothyroxine Sodium (Synthroid) 100 mcg DAILYAC PO Last administered on at 06:01; Start 09/15/18 at 07:30 Sodium Bicarbonate (Sodium Bicarbonate) 1,300 mg TID PO Last administered on at 20:06; Start 09/14/18 at 21:00; Stop 09/16/18 at 07:05; Status DC Aripiprazole (Abilify) 20 mg QHS PO Last administered on 09/15/18at 21:52; Start 09/14/18 at 21:00 Calcium/Vitamin D (Oscal D 500mg/ 200uts) 2 tab DAILY PO ; Start 09/15/18 at 09: 00 Citalopram Hydrobromide (CeleXA) 20 mg DAILY PO ; Start 09/15/18 at 09:00 Gabapentin (Neurontin) 1,200 mg BID PO Last administered on 09/15/18at 21:53; Start 09/14/18 at 21:00 Mirtazapine (Remeron) 30 mg QHS PO Last administered on 09/15/18at 21:53; Start 09/14/18 at 21:00 Multivitamins (Thera M Plus) 1 tab DAILY PO ; Start 09/15/18 at 09:00 Pantoprazole Sodium (Protonix) 40 mg BIDAC PO Last administered on 09/16/18at 06: 01; Start 09/15/18 at 07:30 Enoxaparin Sodium (Lovenox 30mg Syringe) 30 mg QHS SQ Last administered on 09/14at 22:23; Start 09/14/18 at 21:00; Stop 09/15/18 at 08:43; Status DC Sodium Chloride 1,000 ml @ 75 mls/hr [id number] IV Last administered on at 23:06; Start 09/14/18 at 20:30 Sodium Chloride (Normal Saline Flush 3ml) 3 ml QSHIFT PRN IV AFTER MEDS AND BLOOD DRAWS; Start 09/14/18 at 20:30 Ondansetron HCl (Zofran) 4 mg PRN Q4HRS PRN IV NAUSEA/VOMITING; Start 09/14/18 at 20:30 Acetaminophen (Tylenol) 650 mg PRN Q4HRS PRN PO TEMP OVER 100.4F OR MILD PAIN; Start 09/14/18 at 20:30 Al Hydroxide/Mg Hydroxide (Mylanta Plus Xs) 30 ml PRN DAILY PRN PO HEARTBURN / GAS; Start 09/14/18 at 20:30 Clonidine HCl (Catapres) 0.1 mg PRN Q6HRS PRN PO SBP>160 OR DBP>90; Start 09/14 at 20:30 Sodium Monofluorophosphate (Fleet Adult) 133 ml PRN DAILY PRN [place] CONSTIPATION; Start 09/14/18 at 20:30 Albuterol/ Ipratropium (Duoneb) 3 ml Q4H NEB ; Start 09/14/18 at 20:30; Status Cancel Guaifenesin (Robitussin) 200 mg PRN Q4HRS PRN PO COUGH; Start 09/14/18 at 20:30 Lorazepam (Ativan) 0.5 mg PRN Q4HRS PRN PO ANXIETY / AGITATION; Start 09/14/18 at 20:30 Albuterol Sulfate (Ventolin Neb Soln) 2.5 mg PRN Q4HRS PRN NEB SHORTNESS OF BREATH; Start 09/14/18 at 21:45 Morphine Sulfate 5 mg/Ketorolac Tromethamine 30 mg/Ropivacaine 60 ml/ Epinephrine HCl 0.5 mg/Sodium Chloride 100 ml @ 100 mls/hr 1X ONCE INT ART Last administered on 09/15/18at 09:13; Start 09/15/18 at 07:00; Stop 09/15/18 at 07:59; Status DC Fentanyl Citrate (Fentanyl 2ml Vial) 25 mcg PRN Q5MIN PRN IV MILD PAIN; Start 09/15/18 at 09:00; Stop 09/15/18 at 20:00; Status DC Fentanyl Citrate (Fentanyl 2ml Vial) 50 mcg PRN Q5MIN PRN IV MODERATE TO SEVERE PAIN; Start 09/15/18 at 08:30; Stop 09/15/18 at 20:00; Status DC Ringer's Solution 1,000 ml @ 30 mls/hr Q24H IV ; Start 09/15/18 at 08:22; Stop 09/15/18 at 20:21; Status DC Prochlorperazine Edisylate (Compazine) 5 mg PACU PRN PRN IV NAUSEA, MRX1; Start 09/15/18 at 08:30; Stop 09/15/18 at 20:00; Status DC Cefazolin Sodium 50 ml @ As Directed STK-MED ONCE IV ; Start 09/15/18 at 08:29; Stop 09/15/18 at 08:30; Status DC Enoxaparin Sodium (Lovenox 30mg Syringe) 30 mg Q24H SQ ; Start 09/16/18 at 09:00 Dexamethasone Sodium Phosphate (Decadron) 20 mg STK-MED ONCE .ROUTE ; Start at 08:32; Stop 09/15/18 at 08:33; Status DC Ondansetron HCl (Zofran) 4 mg STK-MED ONCE .ROUTE ; Start 09/15/18 at 08:32; Stop 09/15/18 at 08:33; Status DC Ephedrine Sulfate (ePHEDrine PF IN SALINE SYRINGE) 50 mg STK-MED ONCE IV ; Start 09/15/18 at 08:33; Stop 09/15/18 at 08:34; Status DC Phenylephrine HCl (PHENYLEPHRINE in 0.9% NACL PF) 1 mg STK-MED ONCE IV ; Start 09/15/18 at 08:33; Stop 09/15/18 at 08:34; Status DC Propofol 20 ml @ As Directed STK-MED ONCE IV ; Start 09/15/18 at 08:33; Stop at 08:34; Status DC Lidocaine HCl (Lidocaine Pf 2% Vial) 5 ml STK-MED ONCE .ROUTE ; Start 09/15/18 at 08:33; Stop 09/15/18 at 08:34; Status DC Rocuronium [place] (Zemuron) 50 mg STK-MED ONCE .ROUTE ; Start 09/15/18 at 08:33 ; Stop 09/15/18 at 08:34; Status DC Oxycodone/ Acetaminophen (Percocet 5/325) 1 tab PRN Q4HRS PRN PO SEVERE PAIN Last administered on 09/15/18at 21:52; Start 09/15/18 at 09:00 Sevoflurane (Ultane) 60 ml STK-MED ONCE IH ; Start 09/15/18 at 09:04; Stop 09/15 at 09:05; Status DC Glycopyrrolate (Robinul) 1 mg STK-MED ONCE .ROUTE ; Start 09/15/18 at 09:15; Stop 09/15/18 at 09:16; Status DC Neostigmine Methylsulfate (Neostigmine Methylsulfate) 5 mg STK-MED ONCE .ROUTE ; Start 09/15/18 at 09:15; Stop 09/15/18 at 09:16; Status DC Cefazolin Sodium 1 gm/Dextrose 50 ml @ 100 mls/hr Q6H IV Last administered on 09/16/18at 02:45; Start 09/15/18 at 15:00; Stop 09/16/18 at 03:29; Status DC Cefazolin Sodium 50 ml @ 100 mls/hr 1X ONCE IV ; Start 09/15/18 at 09:45; Stop 09/15/18 at 11:01; Status DC Sodium Bicarbonate (Sodium Bicarbonate) 1,300 mg [id number] PO Last administered on 09/16/18at 07:22; Start 09/16/18 at 08:00 Furosemide (Lasix) 40 mg DAILY PO ; Start 09/16/18 at 09:00 Active Scripts Active Reported Calcium + Vitamin D Tablet (Calcium Carbonate/Vitamin D3) 1 Each Tablet 2 Each PO DAILY Multivitamins (Multivitamin) 1 Each Tablet 1 Tab PO DAILY Sodium Bicarbonate 650 Mg Tablet 2 Tab PO TID Levothyroxine Sodium 100 Mcg Tablet 100 Mcg PO DAILYAC Abilify (Aripiprazole) 10 Mg Tablet 2 Tab PO HS Wellbutrin Sr (Bupropion Hcl) 150 Mg Tablet.er 150 Mg PO DAILY Omeprazole 40 Mg Capsule.dr 40 Mg PO BID Gabapentin 600 Mg Tablet 1,200 Mg PO BID Mirtazapine 30 Mg Tablet 30 Mg PO HS Clonazepam 1 Mg Tablet 1 Mg PO BID Citalopram Hbr (Citalopram Hydrobromide) 40 Mg Tablet 20 Mg PO DAILY Vitals/I & O Vital Sign - Last 24 Hours 09/15/18 09/15/18 09/15/18 09/15/18 10:48 10:48 11:00 11:15 Temp 98.8 98.8 99.0 98.8 98.8 99.0 Pulse 105 102 96 Resp 18 12 12 B/P (MAP) 114/58 114/56 114/55 Pulse Ox 100 100 98 O2 Delivery Mask Simple Mask Simple Mask Room Air O2 Flow Rate 8 8 8 09/15/18 09/15/18 09/15/18 09/15/18 11:38 11:43 11:59 12:13 Temp 98.4 98.4 Pulse 91 98 98 88 B/P (MAP) 126/54 (78) 126/65 (85) 124/64 (84) 114/59 (77) Pulse Ox 98 97 90 86 O2 Delivery Nasal Cannula Nasal Cannula Room Air Room Air O2 Flow Rate 2.0 2.0 09/15/18 09/15/18 09/15/18 09/15/18 12:28 12:58 13:28 14:28 Pulse 84 83 83 79 B/P (MAP) 106/54 (71) 100/51 (67) 95/53 (67) 104/56 (72) Pulse Ox 88 86 87 94 O2 Delivery Room Air Room Air Room Air Nasal Cannula O2 Flow Rate 2.0 3/31/19 3/31/19 3/31/19 3/31/19 15:11 19:00 20:00 23:00 Temp 97.7 98.1 97.7 98.1 Pulse 80 86 75 Resp 18 B/P (MAP) 109/54 (72) 114/60 (78) 88/43 (58) Pulse Ox 92 92 98 O2 Delivery Nasal Cannula Nasal Cannula Room Air Nasal Cannula O2 Flow Rate 2.0 2.0 2.0 09/16/18 09/16/18 03:00 07:00 Temp 98.0 98.4 98.0 98.4 Pulse 75 77 Resp 18 B/P (MAP) 115/59 (77) 137/63 (87) Pulse Ox 94 95 O2 Delivery Nasal Cannula Room Air O2 Flow Rate 2.0 Intake and Output 09/15/18 09/15/18 09/16/18 14:59 22:59 06:59 Intake Total 550 ml 200 ml 900 ml Output Total 425 ml 100 ml 200 ml Balance 125 ml 100 ml 700 ml EFREN LAL MD Sep 16, 2018 08:33
[2018-09-16] MEDS: CALCIUM CARB/VIT D3 500/200 TABLET. PO SCH (09:27)
[2018-09-16] MEDS: clonazePAM 1 MG TABLET PO SCH (09:28)
[2018-09-16] MEDS: MULTIVITAMIN with MINERAL TABLET. PO SCH (09:28)
[2018-09-16] MEDS: CITALOPRAM 20 MG TABLET. PO SCH (09:28)
[2018-09-16] MEDS: GABAPENTIN 400 MG CAPSULE. PO SCH ×2 (09:28→21:21)
[2018-09-16] MEDS: buPROPion SR 150 MG TABLET.SA PO SCH (09:28)
[2018-09-16] MEDS: FUROSEMIDE 40 MG TABLET. PO SCH (09:31)
[2018-09-16] MEDS: ENOXAPARIN 30 MG/0.3 ML SYRINGE. SQ SCH (10:06)
[2018-09-16] MEDS ORDERED: SENNOSIDES/DOCUSATE 8.6/50MG TABLET. PO PRN (10:45)
[2018-09-16] MEDS: IV NORMAL SALINE 1000ML BAG 1,000 ML IV SCH (12:30)
[2018-09-16 13:30] LABS: HEMATOCRIT 25.6 % (36.0-47.0); HEMOGLOBIN 8.4 g/dL (12.0-15.5); RED BLOOD COUNT 2.79 x10^6/uL (3.50-5.40); WHITE BLOOD COUNT 6.9 x10^3/uL (4.0-11.0)
--- NOTE | 2018-09-16 13:46 | NUR ---
SW following for discharge planning. Discussed with RN, pt is from home, getting transfusion today. SW awaiting PT/OT recommendations for further discharge planning. SW will continue to follow.
[2018-09-16] MEDS: MIRTAZAPINE 15 MG TABLET PO SCH (21:21)
[2018-09-16] MEDS: ARIPiprazole 5 MG TABLET PO SCH (21:22)
[2018-09-16] MEDS: oxyCODONE/APAP 5/325 1 TAB TABLET PO PRN (22:17)
[2018-09-17] MEDS: IV NORMAL SALINE 1000ML BAG 1,000 ML IV SCH ×2 (01:50→10:28)
[2018-09-17 02:00] VITALS: BP 150/79
[2018-09-17 07:00] VITALS: BP 152/77
--- NOTE | 2018-09-17 08:30 | PDOC ---
ORTHO PROGRESS NOTES Subjective Her pain is tolerable. She has been up and putting some weight on this without a great increase in her pain. No other complaints or concerns Vitals Vital Signs Date Time Temp Pulse Resp B/P (MAP) Pulse Ox O2 Delivery O2 Flow Rate FiO2 09/17/18 08:00 Room Air 09/17/18 02:00 98.8 85 18 150/79 (102) 92 98.8 09/16/18 08:00 2.0 Labs Laboratory Tests Test 09/16/18 03:10 09/16/18 13:15 White Blood Count 7.3 x10^3/uL (4.0-11.0) 6.9 x10^3/uL (4.0-11.0) Red Blood Count 2.23 x10^6/uL (3.50-5.40) 2.79 x10^6/uL (3.50-5.40) Hemoglobin 6.9 g/dL (12.0-15.5) 8.4 g/dL (12.0-15.5) Hematocrit 21.4 % (36.0-47.0) 25.6 % (36.0-47.0) Mean Corpuscular Volume 96 fL (79-100) 92 fL (79-100) Mean Corpuscular Hemoglobin 31 pg (25-35) 30 pg (25-35) Mean Corpuscular Hemoglobin Concent 32 g/dL (31-37) 33 g/dL (31-37) Red Cell Distribution Width 16.6 % (11.5-14.5) 18.0 % (11.5-14.5) Platelet Count 204 x10^3/uL (140-400) 206 x10^3/uL (140-400) Neutrophils (%) (Auto) 66 % (31-73) Lymphocytes (%) (Auto) 25 % (24-48) Monocytes (%) (Auto) 8 % (0-9) Eosinophils (%) (Auto) 0 % (0-3) Basophils (%) (Auto) 0 % (0-3) Neutrophils # (Auto) 4.8 x10^3uL (1.8-7.7) Lymphocytes # (Auto) 1.8 x10^3/uL (1.0-4.8) Monocytes # (Auto) 0.6 x10^3/uL (0.0-1.1) Eosinophils # (Auto) 0.0 x10^3/uL (0.0-0.7) Basophils # (Auto) 0.0 x10^3/uL (0.0-0.2) Sodium Level 142 mmol/L (136-145) Potassium Level 4.4 mmol/L (3.5-5.1) Chloride Level 109 mmol/L (98-107) Carbon Dioxide Level 28 mmol/L (21-32) Anion Gap 5 (6-14) Blood Urea Nitrogen 25 mg/dL (7-20) Creatinine 1.7 mg/dL (0.6-1.0) Estimated GFR (Cockcroft-Gault) 29.5 Glucose Level 100 mg/dL (70-99) Calcium Level 7.2 mg/dL (8.5-10.1) Laboratory Tests Test 09/16/18 13:15 White Blood Count 6.9 x10^3/uL (4.0-11.0) Red Blood Count 2.79 x10^6/uL (3.50-5.40) Hemoglobin 8.4 g/dL (12.0-15.5) Hematocrit 25.6 % (36.0-47.0) Mean Corpuscular Volume 92 fL (79-100) Mean Corpuscular Hemoglobin 30 pg (25-35) Mean Corpuscular Hemoglobin Concent 33 g/dL (31-37) Red Cell Distribution Width 18.0 % (11.5-14.5) Platelet Count 206 x10^3/uL (140-400) Notes She is awake and alert in bed. Normal motor and sensation are present in her extremities. Dressing is intact and fairly dry. Assessment and Plan PT and OT. Anticoagulation. I would anticipate she will need placement. MEME MANN II, MD Sep 17, 2018 08:30
[2018-09-17] MEDS: GABAPENTIN 400 MG CAPSULE. PO SCH (08:42)
[2018-09-17] MEDS: CITALOPRAM 20 MG TABLET. PO SCH (08:42)
[2018-09-17] MEDS: MULTIVITAMIN with MINERAL TABLET. PO SCH (08:42)
[2018-09-17] MEDS: SODIUM BICARBONATE 650 MG TABLET. PO SCH ×2 (08:42→15:57)
[2018-09-17] MEDS: FUROSEMIDE 40 MG TABLET. PO SCH (08:42)
[2018-09-17] MEDS: CALCIUM CARB/VIT D3 500/200 TABLET. PO SCH (08:42)
[2018-09-17] MEDS: LEVOTHYROXINE 100 MCG TABLET PO SCH (08:42)
[2018-09-17] MEDS: PANTOPRAZOLE 40 MG TABLET.DR. PO SCH ×2 (08:42→15:57)
[2018-09-17] MEDS: buPROPion SR 150 MG TABLET.SA PO SCH (08:42)
[2018-09-17] MEDS: oxyCODONE/APAP 5/325 1 TAB TABLET PO PRN ×2 (08:43→14:56)
[2018-09-17] MEDS: ENOXAPARIN 30 MG/0.3 ML SYRINGE. SQ SCH (08:43)
--- NOTE | 2018-09-17 09:50 | PDOC ---
PROGRESS NOTES Chief Complaint Chief Complaint Right femoral neck fracture.acute MECHANICAL FALL ANXIETY HX GERD HX DEPRESSION Acute normocytic anemia CKD BASELINE CR APPROX 2.0 Small left pleural effusion. Consolidation at the left base likely represents associated atelectasis. Vague nodular focus at the right lung base, likely a nipple shadow. Suggest follow-up PA and lateral exam for better evaluation. PERIPHERAL NEUROPATHY SEVERE protein-caloric malnutrition History of Present Illness History of Present Illness S/p right hip hemiarthroplasty 09/16 her Hb 6.9 was feeling very weak and dizzy. No CP or shortness of breath. Hb to 8.4 s/p transfusion. Feeling less dizzy and a little stronger today. Passing flatus well PLAN: PT for dizziness Munoz out today [facility] post op labs Check vit D levels Routine post op care May be ok for D/C, she requests rehab at [facility] Vitals Vitals Vital Signs Date Time Temp Pulse Resp B/P (MAP) Pulse Ox O2 Delivery O2 Flow Rate FiO2 09/17/18 08:43 Room Air 09/17/18 07:00 99.1 86 16 152/77 (102) 97 2.0 99.1 Physical Exam General: Alert, Oriented X3 Heart: Regular rate Lungs: Clear Abdomen: Soft, No tenderness Extremities: No edema, Normal pulses Skin: No rashes Labs LABS Laboratory Tests Test 09/16/18 13:15 White Blood Count 6.9 x10^3/uL (4.0-11.0) Red Blood Count 2.79 x10^6/uL (3.50-5.40) Hemoglobin 8.4 g/dL (12.0-15.5) Hematocrit 25.6 % (36.0-47.0) Mean Corpuscular Volume 92 fL (79-100) Mean Corpuscular Hemoglobin 30 pg (25-35) Mean Corpuscular Hemoglobin Concent 33 g/dL (31-37) Red Cell Distribution Width 18.0 % (11.5-14.5) Platelet Count 206 x10^3/uL (140-400) Assessment and Plan Assessmemt and Plan Problems Medical Problems: (1) Fall Status: Acute (2) Hip fracture, right Status: Acute Comment Review of Relevant I have reviewed the following items isreal (where applicable) has been applied. Labs Laboratory Tests Test 09/16/18 03:10 09/16/18 13:15 White Blood Count 7.3 x10^3/uL (4.0-11.0) 6.9 x10^3/uL (4.0-11.0) Red Blood Count 2.23 x10^6/uL (3.50-5.40) 2.79 x10^6/uL (3.50-5.40) Hemoglobin 6.9 g/dL (12.0-15.5) 8.4 g/dL (12.0-15.5) Hematocrit 21.4 % (36.0-47.0) 25.6 % (36.0-47.0) Mean Corpuscular Volume 96 fL (79-100) 92 fL (79-100) Mean Corpuscular Hemoglobin 31 pg (25-35) 30 pg (25-35) Mean Corpuscular Hemoglobin Concent 32 g/dL (31-37) 33 g/dL (31-37) Red Cell Distribution Width 16.6 % (11.5-14.5) 18.0 % (11.5-14.5) Platelet Count 204 x10^3/uL (140-400) 206 x10^3/uL (140-400) Neutrophils (%) (Auto) 66 % (31-73) Lymphocytes (%) (Auto) 25 % (24-48) Monocytes (%) (Auto) 8 % (0-9) Eosinophils (%) (Auto) 0 % (0-3) Basophils (%) (Auto) 0 % (0-3) Neutrophils # (Auto) 4.8 x10^3uL (1.8-7.7) Lymphocytes # (Auto) 1.8 x10^3/uL (1.0-4.8) Monocytes # (Auto) 0.6 x10^3/uL (0.0-1.1) Eosinophils # (Auto) 0.0 x10^3/uL (0.0-0.7) Basophils # (Auto) 0.0 x10^3/uL (0.0-0.2) Sodium Level 142 mmol/L (136-145) Potassium Level 4.4 mmol/L (3.5-5.1) Chloride Level 109 mmol/L (98-107) Carbon Dioxide Level 28 mmol/L (21-32) Anion Gap 5 (6-14) Blood Urea Nitrogen 25 mg/dL (7-20) Creatinine 1.7 mg/dL (0.6-1.0) Estimated GFR (Cockcroft-Gault) 29.5 Glucose Level 100 mg/dL (70-99) Calcium Level 7.2 mg/dL (8.5-10.1) Laboratory Tests Test 09/16/18 13:15 White Blood Count 6.9 x10^3/uL (4.0-11.0) Red Blood Count 2.79 x10^6/uL (3.50-5.40) Hemoglobin 8.4 g/dL (12.0-15.5) Hematocrit 25.6 % (36.0-47.0) Mean Corpuscular Volume 92 fL (79-100) Mean Corpuscular Hemoglobin 30 pg (25-35) Mean Corpuscular Hemoglobin Concent 33 g/dL (31-37) Red Cell Distribution Width 18.0 % (11.5-14.5) Platelet Count 206 x10^3/uL (140-400) Medications Current Medications Fentanyl Citrate (Fentanyl 2ml Vial) 25 mcg 1X ONCE IV Last administered on at 17:37; Start 09/14/18 at 17:30; Stop 09/14/18 at 17:31; Status DC Morphine Sulfate (Morphine Sulfate) 4 mg 1X ONCE IV Last administered on at 18:25; Start 09/14/18 at 18:15; Stop 09/14/18 at 18:17; Status DC Ondansetron HCl (Zofran) 4 mg PRN Q8HRS PRN IV NAUSEA/VOMITING; Start 09/14/18 at 19:15; Stop 09/14/18 at 20:36; Status DC Morphine Sulfate (Morphine Sulfate) 4 mg PRN Q2HR PRN IV PAIN Last administered on 09/15/18at 06:20; Start 09/14/18 at 19:15; Stop 09/15/18 at 19:14 ; Status DC Bupropion HCl (Wellbutrin Sr) 150 mg DAILY PO Last administered on 09/17/18at 08: 42; Start 09/15/18 at 09:00 Clonazepam (KlonoPIN) 1 mg BID PO Last administered on 09/16/18at 09:28; Start at 21:00; Stop 09/16/18 at 10:40; Status DC Levothyroxine Sodium (Synthroid) 100 mcg DAILYAC PO Last administered on 08:42; Start 09/15/18 at 07:30 Sodium Bicarbonate (Sodium Bicarbonate) 1,300 mg TID PO Last administered on 20:06; Start 09/14/18 at 21:00; Stop 09/16/18 at 07:05; Status DC Aripiprazole (Abilify) 20 mg QHS PO Last administered on 09/16/18 21:22; Start 09/14/18 at 21:00 Calcium/Vitamin D (Oscal D 500mg/ 200uts) 2 tab DAILY PO Last administered on 08:42; Start 09/15/18 at 09:00 Citalopram Hydrobromide (CeleXA) 20 mg DAILY PO Last administered on 09/17/18 08:42; Start 09/15/18 at 09:00 Gabapentin (Neurontin) 1,200 mg BID PO Last administered on 09/17/18 08:42; Start 09/14/18 at 21:00 Mirtazapine (Remeron) 30 mg QHS PO Last administered on 09/16/18 21:21; Start 09/14/18 at 21:00 Multivitamins (Thera M Plus) 1 tab DAILY PO Last administered on 09/17/18 08:42 ; Start 09/15/18 at 09:00 Pantoprazole Sodium (Protonix) 40 mg BIDAC PO Last administered on 09/17/18 08: 42; Start 09/15/18 at 07:30 Enoxaparin Sodium (Lovenox 30mg Syringe) 30 mg QHS SQ Last administered on 09/14 22:23; Start 09/14/18 at 21:00; Stop 09/15/18 at 08:43; Status DC Sodium Chloride 1,000 ml @ 75 mls/hr [id number] IV Last administered on 23:06; Start 09/14/18 at 20:30 Sodium Chloride (Normal Saline Flush 3ml) 3 ml QSHIFT PRN IV AFTER MEDS AND BLOOD DRAWS; Start 09/14/18 at 20:30 Ondansetron HCl (Zofran) 4 mg PRN Q4HRS PRN IV NAUSEA/VOMITING; Start 09/14/18 at 20:30 Acetaminophen (Tylenol) 650 mg PRN Q4HRS PRN PO TEMP OVER 100.4F OR MILD PAIN; Start 09/14/18 at 20:30 Al Hydroxide/Mg Hydroxide (Mylanta Plus Xs) 30 ml PRN DAILY PRN PO HEARTBURN / GAS; Start 09/14/18 at 20:30 Clonidine HCl (Catapres) 0.1 mg PRN Q6HRS PRN PO SBP>160 OR DBP>90; Start 09/14 at 20:30 Sodium Monofluorophosphate (Fleet Adult) 133 ml PRN DAILY PRN MD CONSTIPATION; Start 09/14/18 at 20:30 Albuterol/ Ipratropium (Duoneb) 3 ml Q4H NEB ; Start 09/14/18 at 20:30; Status Cancel Guaifenesin (Robitussin) 200 mg PRN Q4HRS PRN PO COUGH; Start 09/14/18 at 20:30 Lorazepam (Ativan) 0.5 mg PRN Q4HRS PRN PO ANXIETY / AGITATION; Start 09/14/18 at 20:30 Albuterol Sulfate (Ventolin Neb Soln) 2.5 mg PRN Q4HRS PRN NEB SHORTNESS OF BREATH; Start 09/14/18 at 21:45 Morphine Sulfate 5 mg/Ketorolac Tromethamine 30 mg/Ropivacaine 60 ml/ Epinephrine HCl 0.5 mg/Sodium Chloride 100 ml @ 100 mls/hr 1X ONCE INT ART Last administered on 09/15/18at 09:13; Start 09/15/18 at 07:00; Stop 09/15/18 at 07:59; Status DC Fentanyl Citrate (Fentanyl 2ml Vial) 25 mcg PRN Q5MIN PRN IV MILD PAIN; Start 09/15/18 at 09:00; Stop 09/15/18 at 20:00; Status DC Fentanyl Citrate (Fentanyl 2ml Vial) 50 mcg PRN Q5MIN PRN IV MODERATE TO SEVERE PAIN; Start 09/15/18 at 08:30; Stop 09/15/18 at 20:00; Status DC Ringer's Solution 1,000 ml @ 30 mls/hr Q24H IV ; Start 09/15/18 at 08:22; Stop 09/15/18 at 20:21; Status DC Prochlorperazine Edisylate (Compazine) 5 mg PACU PRN PRN IV NAUSEA, MRX1; Start 09/15/18 at 08:30; Stop 09/15/18 at 20:00; Status DC Cefazolin Sodium 50 ml @ As Directed STK-MED ONCE IV ; Start 09/15/18 at 08:29; Stop 09/15/18 at 08:30; Status DC Enoxaparin Sodium (Lovenox 30mg Syringe) 30 mg Q24H SQ Last administered on 09/17at 08:43; Start 09/16/18 at 09:00 Dexamethasone Sodium Phosphate (Decadron) 20 mg STK-MED ONCE .ROUTE ; Start at 08:32; Stop 09/15/18 at 08:33; Status DC Ondansetron HCl (Zofran) 4 mg STK-MED ONCE .ROUTE ; Start 09/15/18 at 08:32; Stop 09/15/18 at 08:33; Status DC Ephedrine Sulfate (ePHEDrine PF IN SALINE SYRINGE) 50 mg STK-MED ONCE IV ; Start 09/15/18 at 08:33; Stop 09/15/18 at 08:34; Status DC Phenylephrine HCl (PHENYLEPHRINE in 0.9% NACL PF) 1 mg STK-MED ONCE IV ; Start 09/15/18 at 08:33; Stop 09/15/18 at 08:34; Status DC Propofol 20 ml @ As Directed STK-MED ONCE IV ; Start 09/15/18 at 08:33; Stop at 08:34; Status DC Lidocaine HCl (Lidocaine Pf 2% Vial) 5 ml STK-MED ONCE .ROUTE ; Start 09/15/18 at 08:33; Stop 09/15/18 at 08:34; Status DC Rocuronium [place] (Zemuron) 50 mg STK-MED ONCE .ROUTE ; Start 09/15/18 at 08:33 ; Stop 09/15/18 at 08:34; Status DC Oxycodone/ Acetaminophen (Percocet 5/325) 1 tab PRN Q4HRS PRN PO SEVERE PAIN Last administered on 09/17/18at 08:43; Start 09/15/18 at 09:00 Sevoflurane (Ultane) 60 ml STK-MED ONCE IH ; Start 09/15/18 at 09:04; Stop 09/15 at 09:05; Status DC Glycopyrrolate (Robinul) 1 mg STK-MED ONCE .ROUTE ; Start 09/15/18 at 09:15; Stop 09/15/18 at 09:16; Status DC Neostigmine Methylsulfate (Neostigmine Methylsulfate) 5 mg STK-MED ONCE .ROUTE ; Start 09/15/18 at 09:15; Stop 09/15/18 at 09:16; Status DC Cefazolin Sodium 1 gm/Dextrose 50 ml @ 100 mls/hr Q6H IV Last administered on 09/16/18at 02:45; Start 09/15/18 at 15:00; Stop 09/16/18 at 03:29; Status DC Cefazolin Sodium 50 ml @ 100 mls/hr 1X ONCE IV ; Start 09/15/18 at 09:45; Stop 09/15/18 at 11:01; Status DC Sodium Bicarbonate (Sodium Bicarbonate) 1,300 mg [id number] PO Last administered on 09/17/18at 08:42; Start 09/16/18 at 08:00 Furosemide (Lasix) 40 mg DAILY PO Last administered on 09/17/18at 08:42; Start at 09:00 Cefazolin Sodium (Ancef 1gm Ivpb For Omni) 1 gm STK-MED ONCE IV ; Start at 09:00; Stop 09/16/18 at 08:40; Status DC Senna/Docusate Sodium (Senna Plus) 2 tab PRN BID PRN PO CONSTIPATION; Start 09/16/18 at 10:45 Active Scripts Active Reported Calcium + Vitamin D Tablet (Calcium Carbonate/Vitamin D3) 1 Each Tablet 2 Each PO DAILY Multivitamins (Multivitamin) 1 Each Tablet 1 Tab PO DAILY Sodium Bicarbonate 650 Mg Tablet 2 Tab PO TID Levothyroxine Sodium 100 Mcg Tablet 100 Mcg PO DAILYAC Abilify (Aripiprazole) 10 Mg Tablet 2 Tab PO HS Wellbutrin Sr (Bupropion Hcl) 150 Mg Tablet.er 150 Mg PO DAILY Omeprazole 40 Mg Capsule.dr 40 Mg PO BID Gabapentin 600 Mg Tablet 1,200 Mg PO BID Mirtazapine 30 Mg Tablet 30 Mg PO HS Clonazepam 1 Mg Tablet 1 Mg PO BID Citalopram Hbr (Citalopram Hydrobromide) 40 Mg Tablet 20 Mg PO DAILY Vitals/I & O Vital Sign - Last 24 Hours 09/16/18 09/16/18 09/16/18 09/16/18 09:52 10:09 10:43 11:09 Temp 98.4 98.8 98.4 98.4 98.4 98.8 98.4 98.4 Pulse 77 84 81 82 Resp 18 14 B/P (MAP) 137/63 105/49 99/50 (66) 105/47 Pulse Ox 93 O2 Delivery Room Air 09/16/18 09/16/18 09/16/18 09/16/18 12:09 13:13 14:10 15:00 Temp 98.8 99.0 98.1 97.5 98.8 99.0 98.1 97.5 Pulse 84 83 82 87 Resp 18 B/P (MAP) 143/62 120/64 110/57 127/58 (81) Pulse Ox 96 O2 Delivery Room Air 09/16/18 09/16/18 09/16/18 09/16/18 19:00 20:20 22:17 23:34 Temp 98.1 98.4 98.1 98.4 Pulse 78 77 Resp 18 B/P (MAP) 125/65 (85) 146/75 (98) Pulse Ox 97 93 O2 Delivery Room Air Room Air Room Air Room Air 09/17/18 09/17/18 09/17/18 09/17/18 02:00 07:00 08:00 08:43 Temp 98.8 99.1 98.8 99.1 Pulse 85 86 Resp 16 B/P (MAP) 150/79 (102) 152/77 (102) Pulse Ox 92 97 O2 Delivery Room Air Nasal Cannula Room Air Room Air O2 Flow Rate 2.0 Intake and Output 09/16/18 09/16/18 09/17/18 14:59 22:59 06:59 Intake Total 590 ml 0 ml Output Total 350 ml 700 ml Balance 590 ml -350 ml -700 ml EFREN LAL MD Sep 17, 2018 09:50
[2018-09-17 11:00] VITALS: BP 129/68
--- NOTE | 2018-09-17 11:36 | NUR ---
SW following for discharge planning. Discussed with RN, pt is from home with . SW met with pt, pt lives in a single level home with no steps but recognizes she needs some rehab before returning home. Pt would like referral sent to [facility] (ph: [phone], fax: [phone]). SW faxed referral, if accepted, pt could possibly discharge today. Discussed with Dr. [place] and RN. ANNELIESE will continue to follow.
[2018-09-17] MEDS ORDERED: ACET325T9 PO (12:26)
[2018-09-17] MEDS ORDERED: ENOX30DI3 SQ (12:26)
[2018-09-17] MEDS ORDERED: SENN-22 PO (12:26)
[2018-09-17] MEDS ORDERED: LORA0.5T96 PO (12:26)
[2018-09-17] MEDS ORDERED: OXYC1TAB15 PO (12:26)
[2018-09-17] MEDS ORDERED: FURO40TA4 PO (12:26)
--- NOTE | 2018-09-17 12:29 | SNU/HH DC ---
DISCHARGE ORDERS DISCHARGE INFORMATION: DISCHARGE DATE: Sep 17, 2018 FINAL DIAGNOSIS Problems Medical Problems: (1) Fall Status: Acute (2) Hip fracture, right Status: Acute CONDITION ON DISCHARGE: Stable CODE STATUS: Code Status: Full SENIOR CARE: SNF STAY <30 DAYS: Yes POST DISCHARGE ORDERS: ACTIVITY ORDERS: Activity as tolerated WEIGHT BEARING STATUS: As tolerated DIET AFTER DISCHARGE: Regular WOUND/INCISION CARE: Ice to area for comfort, Reinforce dressing PRN CHECKS AFTER DISCHARGE: CHECKS AFTER DISCHARGE: Check blood press - daily FOLLOW-UP: PHYSICIAN FOLLOW-UP: Dr Murray - 2 weeks TREATMENT/EQUIPMENT ORDERS: Physical Therapy For: Evalulation/Treatment Occupational Therapy For: Evaluation/Treatment DISCHARGE MEDICATIONS: Home Meds Active Scripts Oxycodone/Apap 5-325 (PERCOCET 5-325 MG TABLET ) 1 Each Tablet, 1 TAB PO PRN Q4HRS PRN for SEVERE PAIN for 6 Days, #18 TAB Prov:EFREN LAL MD 09/17/18 Acetaminophen (TYLENOL) 325 Mg Tablet, 650 MG PO PRN Q4HRS PRN for TEMP OVER 100.4F OR MILD PAIN for 30 Days, #120 TAB Prov:EFREN LAL MD 09/17/18 Lorazepam (ATIVAN) 0.5 Mg Tablet, 0.5 MG PO PRN Q4HRS PRN for ANXIETY / AGITATION for 15 Days, #30 TAB Prov:EFREN LAL MD 09/17/18 Furosemide (FUROSEMIDE) 40 Mg Tablet, 40 MG PO DAILY for BP for 30 Days, #30 TAB Prov:EFREN LAL MD 09/17/18 Sennosides/Docusate Sodium (SENNA-TIME S TABLET) 1 Each Tablet, 2 TAB PO PRN BID PRN for CONSTIPATION for 30 Days, #60 TAB Prov:EFREN LAL MD 09/17/18 Enoxaparin Sodium (ENOXAPARIN SODIUM) 30 Mg/0.3 Ml Disp.syrin, 30 MG SQ Q24H for PPX for 14 Days, #14 DIS.SYR Prov:EFREN LAL MD 09/17/18 Reported Medications Calcium Carbonate/Vitamin D3 (CALCIUM + VITAMIN D TABLET) 1 Each Tablet, 2 EACH PO DAILY for vit dif, TAB 09/14/18 Multivitamin (MULTIVITAMINS) 1 Each Tablet, 1 TAB PO DAILY for vit dif., #90 TAB 3 Refills 09/14/18 Sodium Bicarbonate (SODIUM BICARBONATE) 650 Mg Tablet, 2 TAB PO TID for kidney, #60 TAB 5 Refills 09/14/18 Levothyroxine Sodium (LEVOTHYROXINE SODIUM) 100 Mcg Tablet, 100 MCG PO DAILYAC for THYROID SUPPLEMENT, #30 TAB 0 Refills 05/02/15 Aripiprazole (ABILIFY) 10 Mg Tablet, 2 TAB PO HS for depression, #30 TAB 1 Refill 05/01/15 Bupropion Hcl (WELLBUTRIN SR) 150 Mg Tablet.er, 150 MG PO DAILY, TAB.SR 05/01/15 Omeprazole (OMEPRAZOLE) 40 Mg Capsule.dr, 40 MG PO BID 10/13/13 Gabapentin (GABAPENTIN) 600 Mg Tablet, 1200 MG PO BID 10/13/13 Mirtazapine (MIRTAZAPINE) 30 Mg Tablet, 30 MG PO HS 10/13/13 Citalopram Hydrobromide (CITALOPRAM HBR) 40 Mg Tablet, 20 MG PO DAILY for depression 10/13/13 Discontinued Reported Medications Clonazepam (CLONAZEPAM) 1 Mg Tablet, 1 MG PO BID 10/13/13 EFREN LAL MD Sep 17, 2018 12:29
--- NOTE | 2018-09-17 12:33 | PDOC3 ---
Discharge Summary Visit Information Date of Admission: Sep 14, 2018 Date of Discharge: Sep 17, 2018 Admitting Diagnosis: Right hip fracture Final Diagnosis Problems Medical Problems: (1) Fall Status: Acute (2) Hip fracture, right Status: Acute Brief Hospital Course Allergies Allergies Coded Allergies Type Severity Reaction Last Updated Verified hydromorphone Allergy Intermediate Palpitations 10/14/13 Yes rosuvastatin Allergy Mild Nausea and Vomiting 10/14/13 Yes Vital Signs Vital Signs Date Time Temp Pulse Resp B/P (MAP) Pulse Ox O2 Delivery O2 Flow Rate FiO2 09/17/18 11:00 97.9 82 16 129/68 (88) 93 Room Air 97.9 09/17/18 07:00 2.0 Lab Results Laboratory Tests Test 09/16/18 03:10 09/16/18 13:15 White Blood Count 7.3 x10^3/uL (4.0-11.0) 6.9 x10^3/uL (4.0-11.0) Red Blood Count 2.23 x10^6/uL (3.50-5.40) 2.79 x10^6/uL (3.50-5.40) Hemoglobin 6.9 g/dL (12.0-15.5) 8.4 g/dL (12.0-15.5) Hematocrit 21.4 % (36.0-47.0) 25.6 % (36.0-47.0) Mean Corpuscular Volume 96 fL (79-100) 92 fL (79-100) Mean Corpuscular Hemoglobin 31 pg (25-35) 30 pg (25-35) Mean Corpuscular Hemoglobin Concent 32 g/dL (31-37) 33 g/dL (31-37) Red Cell Distribution Width 16.6 % (11.5-14.5) 18.0 % (11.5-14.5) Platelet Count 204 x10^3/uL (140-400) 206 x10^3/uL (140-400) Neutrophils (%) (Auto) 66 % (31-73) Lymphocytes (%) (Auto) 25 % (24-48) Monocytes (%) (Auto) 8 % (0-9) Eosinophils (%) (Auto) 0 % (0-3) Basophils (%) (Auto) 0 % (0-3) Neutrophils # (Auto) 4.8 x10^3uL (1.8-7.7) Lymphocytes # (Auto) 1.8 x10^3/uL (1.0-4.8) Monocytes # (Auto) 0.6 x10^3/uL (0.0-1.1) Eosinophils # (Auto) 0.0 x10^3/uL (0.0-0.7) Basophils # (Auto) 0.0 x10^3/uL (0.0-0.2) Sodium Level 142 mmol/L (136-145) Potassium Level 4.4 mmol/L (3.5-5.1) Chloride Level 109 mmol/L (98-107) Carbon Dioxide Level 28 mmol/L (21-32) Anion Gap 5 (6-14) Blood Urea Nitrogen 25 mg/dL (7-20) Creatinine 1.7 mg/dL (0.6-1.0) Estimated GFR (Cockcroft-Gault) 29.5 Glucose Level 100 mg/dL (70-99) Calcium Level 7.2 mg/dL (8.5-10.1) Laboratory Tests Test 09/16/18 13:15 White Blood Count 6.9 x10^3/uL (4.0-11.0) Red Blood Count 2.79 x10^6/uL (3.50-5.40) Hemoglobin 8.4 g/dL (12.0-15.5) Hematocrit 25.6 % (36.0-47.0) Mean Corpuscular Volume 92 fL (79-100) Mean Corpuscular Hemoglobin 30 pg (25-35) Mean Corpuscular Hemoglobin Concent 33 g/dL (31-37) Red Cell Distribution Width 18.0 % (11.5-14.5) Platelet Count 206 x10^3/uL (140-400) Brief Hospital Course Patient is a pleasant 73-year-old female who is normally a community ambulator who had a ground-level fall yesterday and was unable to bear weight on her right hip. She had immediate pain and noted some mild deformity at her right leg and was brought into the emergency department due to the above reasons. She was evaluated and found have a displaced right femoral neck fracture S/p right hip hemiarthroplasty with Dr. Murray. 09/16 her Hb 6.9 was feeling very weak and dizzy. No CP or shortness of breath. Hb to 8.4 s/p transfusion. Feeling less dizzy and a little stronger today. Passing flatus well. Urinated well after sr out Assessment: Right femoral neck fracture.acute MECHANICAL FALL ANXIETY HX GERD HX DEPRESSION Acute normocytic anemia CKD BASELINE CR APPROX 2.0 Small left pleural effusion. Consolidation at the left base likely represents associated atelectasis. Vague nodular focus at the right lung base, likely a nipple shadow. Suggest follow-up PA and lateral exam for better evaluation. PERIPHERAL NEUROPATHY SEVERE protein-caloric malnutrition - supplements PLAN: PT for dizziness Sr out today - [facility] post op labs in 1 week - CBC and BMP vit D and calcium Routine post op care ok for D/C, she requests rehab at [facility] Greater than 30 minutes spent on d/c Discharge Information Condition at Discharge: Improved Follow Up: Weeks (2) Disposition/Orders: D/C to Another Facility ([facility]) Scheduled Aripiprazole (Abilify) 10 Mg Tablet, 2 TAB PO HS for depression, #30 Ref 1 ( Reported) Entered as Reported by: LLUVIA PAZ on 05/01/15557 Last Action: Converted on 09/14/182010 by DANIELE FRANKS MD Bupropion Hcl (Wellbutrin Sr) 150 Mg Tablet.er, 150 MG PO DAILY, (Reported) Entered as Reported by: LLUVIA PAZ on 05/01/15557 Last Action: Continued on 09/14/182010 by DANIELE FRANKS MD Calcium Carbonate/Vitamin D3 (Calcium + Vitamin D Tablet) 1 Each Tablet, 2 EACH PO DAILY for vit dif, (Reported) Entered as Reported by: Lluvia Blackwell on 09/14/182007 Last Action: Converted on 09/14/182010 by DANIELE FRANKS MD Citalopram Hydrobromide (Citalopram Hbr) 40 Mg Tablet, 20 MG PO DAILY for depression, (Reported) Entered as Reported by: NANY WILSON on 10/13/131938 Last Action: Converted on 09/14/182009 by DANIELE FRANKS MD Enoxaparin Sodium (Enoxaparin Sodium) 30 Mg/0.3 Ml Disp.syrin, 30 MG SQ Q24H for PPX for 14 Days, #14 Prescribed by: EFREN LAL MD on 09/17/18 1226 Furosemide (Furosemide) 40 Mg Tablet, 40 MG PO DAILY for BP for 30 Days, #30 Prescribed by: EFREN LAL MD on 09/17/18 1226 Gabapentin (Gabapentin) 600 Mg Tablet, 1,200 MG PO BID, (Reported) Entered as Reported by: NANY WILSON on 10/13/131958 Last Action: Converted on 09/14/182009 by DANIELE FRANKS MD Levothyroxine Sodium (Levothyroxine Sodium) 100 Mcg Tablet, 100 MCG PO DAILYAC for THYROID SUPPLEMENT, #30 Ref 0 (Reported) Entered as Reported by: BECKIE CANDELARIA [facility] on 05/02/15 1133 Last Action: Continued on 09/14/182010 by DANIELE FRANKS MD Mirtazapine (Mirtazapine) 30 Mg Tablet, 30 MG PO HS, (Reported) Entered as Reported by: NANY WILSON on 10/13/131947 Last Action: Converted on 09/14/182009 by DANIELE FRANKS MD Multivitamin (Multivitamins) 1 Each Tablet, 1 TAB PO DAILY for vit dif., #90 Ref 3 (Reported) Entered as Reported by: Lluvia Blackwell on 09/14/182007 Last Action: Converted on 09/14/182010 by DANIELE FRANKS MD Omeprazole (Omeprazole) 40 Mg Capsule.dr, 40 MG PO BID, (Reported) Entered as Reported by: NANY WILSON on 10/13/132006 Last Action: Converted on 09/14/182010 by DANIELE FRANKS MD Sodium Bicarbonate (Sodium Bicarbonate) 650 Mg Tablet, 2 TAB PO TID for kidney, #60 Ref 5 (Reported) Entered as Reported by: Lluvia Blackwell on 09/14/182007 Last Action: Continued on 09/14/182010 by DANIELE FRANKS MD Scheduled PRN Acetaminophen (Tylenol) 325 Mg Tablet, 650 MG PO PRN Q4HRS PRN for TEMP OVER 100.4F OR MILD PAIN for 30 Days, #120 Prescribed by: EFREN LAL MD on 09/17/18 1226 Lorazepam (Ativan) 0.5 Mg Tablet, 0.5 MG PO PRN Q4HRS PRN for ANXIETY / AGITATION for 15 Days, #30 Prescribed by: EFREN LAL MD on 09/17/18 1226 Oxycodone/Apap 5-325 (Percocet 5-325 Mg Tablet ) 1 Each Tablet, 1 TAB PO PRN Q4HRS PRN for SEVERE PAIN for 6 Days, #18 Prescribed by: EFREN LAL MD on 09/17/18 1226 Sennosides/Docusate Sodium (Senna-Time S Tablet) 1 Each Tablet, 2 TAB PO PRN BID PRN for CONSTIPATION for 30 Days, #60 Prescribed by: EFREN LAL MD on 09/17/18 1226 Discontinued Medications Clonazepam (Clonazepam) 1 Mg Tablet, 1 MG PO BID, (Reported) Entered as Reported by: NANY WILSON on 10/13/131939 Last Action: Continued on 09/14/182009 by MD LUKASZ GRAY CHRISTOPHER S MD Sep 17, 2018 12:33
--- NOTE | 2018-09-17 16:10 | NUR ---
Discharge Note: [facility] [place] Discharge instructions and discharge home medications reviewed with Other facility and a copy given. All questions have been answered and understanding verbalized. Report given to MARIEL Evans at [facility] . The following instructions and handouts were given: information about plan of care, [place] vac, medications, etc. Discontinued lines and drains: IV line in left AC removed, catheter tip intact. Patient discharged to [facility] with transportation maintenance operator, wheelchair used for mobility to discharge vehicle.
--- NOTE | 2018-09-19 13:10 | PATHOLOGY ---
[facility] Accession Number: [id number] . 01 Material submitted: . RIGHT HIP BONE AND TISSUE . 01 Clinician provided ICD-10: y . 01 Clinical history: . Right hip fracture . 02 Diagnosis: Femoral head and separate segments of bone, right bipolar hip arthroplasty: - Focal fragmentation of bony trabeculae and recent intertrabecular hemorrhage consistent with fracture. (JPM:lead business systems analyst; 09/18/2018) MBR/09/19/2018 . 02 Comment: There is no evidence of malignancy. (JPM:lead business systems analyst; 09/18/2018) . 02 Electronically signed: . Tommy Chris MD, Pathologist NPI- [id number] . 01 Gross description: . The specimen is received in formalin, labeled "Skylar Armenta, right hip bone and tissue", is a dome-shaped femoral head measuring 4.2 x 4.0 x 3.8 cm. The articular cartilage is focally irregular and pitted with the margin hemorrhagic, irregular, jagged, consistent with a fracture site. Sectioning of the femoral head reveals a lozano-yellow, trabeculated bone. Also received are multiple irregular fragments consistent with femoral neck measurin 5.0 x 3.5 x 1.5 cm in aggregate. Forestry Aide tissue is submitted as follows: A1. Femoral head after decalcification, blue ink = fracture site A2. Femoral neck after decalcification ([facility]; 09/16/2018) SHS/SHS . 02 Pathologist provided ICD-10: S72.091A . 02 CPT . 859769, 134617 Specimen Comment: A courtesy copy of this report has been sent to Specimen Comment: [phone], , . Specimen Comment: Report sent to ,DR AMATO / DR FRANKS Performed at: [address] [facility], [place] [id number] MD Cedrick Moise MD Phone: [phone] [facility]formed at: [facility] [address] [place], [place] [id number] MD Tommy Chris MD Phone: [phone]
== END 2018-09-17 16:10 | DRG 469 ==
LOC: ER 16:27 → 4 NORTH 18:20
PROVIDERS: ADMIT Family Medicine; ATTEND Family Medicine
PROC: 0SRR019 Replacement of Right Hip Joint, Femoral Surface with Metal Synthetic Substitute, Cemented, Open Approach (ICD-10-PCS; principal; 2018-09-15 09:00)
PROC: 30233N1 Transfusion of Nonautologous Red Blood Cells into Peripheral Vein, Percutaneous Approach (ICD-10-PCS; 2018-09-16)
DX: S72.001A Fracture of unspecified part of neck of right femur, initial encounter for closed fracture (principal); E43 Unspecified severe protein-calorie malnutrition; J90 Pleural effusion, not elsewhere classified; J98.11 Atelectasis; G62.9 Polyneuropathy, unspecified; D64.9 Anemia, unspecified; N18.9 Chronic kidney disease, unspecified; I12.9 Hypertensive chronic kidney disease with stage 1 through stage 4 chronic kidney disease, or unspecified chronic kidney disease; F41.9 Anxiety disorder, unspecified; F32.9 Major depressive disorder, single episode, unspecified; K21.9 Gastro-esophageal reflux disease without esophagitis; E03.9 Hypothyroidism, unspecified; G89.29 Other chronic pain; W18.39XA Other fall on same level, initial encounter; Z90.710 Acquired absence of both cervix and uterus; Z98.84 Bariatric surgery status; Z90.49 Acquired absence of other specified parts of digestive tract; Z88.8 Allergy status to other drugs, medicaments and biological substances; Z82.49 Family history of ischemic heart disease and other diseases of the circulatory system; Y93.89 Activity, other specified; Y92.89 Other specified places as the place of occurrence of the external cause; Y99.8 Other external cause status; Z68.22 Body mass index [BMI] 22.0-22.9, adult
CPT/HCPCS: 36415; 71045; 73502; 80048; 80053; 82306; 85025; 85027; 85610; 85730; 86850; 86870; 86900; 86901; 86902; 86922; 87641; 88305; 88311; 93005; 94760; 96374; 96375; A7015; C1713; J0171; J0690; J1100; J1650; J1885; J2001; J2270; J2370; J2405; J2704; J2710; J2795; J3010; J3490; J7030; P9016; 97530; 97535; 99285-25

== ENCOUNTER → 2019-04-21 | Outpatient (CLI) | payer MEDICARE, OTHER ==
[~2019-04-21] MED LIST changes: +ACET325T9 PO; +BUPIVACAINE MPF 0.5% 10 ML VIAL for KCIC. IJ ONE; +CALC-98 PO; -CLON1TAB11 PO; +CLONAZEPAM1 MG PO; +ENOX30DI3 SQ; +FURO40TA4 PO; +IOHEXOL 300 MG/ML 50 ML VIAL. INT ART ONE; +LIDOCAINE 1% Multi-Dose 20 ML VIAL. ID ONE; +LORA0.5T96 PO; +MULT1TAB52 PO; +OMEP40CA45 PO; -OMEP40CA5 PO; +OXYC1TAB15 PO; +SENN-22 PO; +SODI650T PO; +methylPREDNISolone ACETATE 40 MG/ML VIAL. INT ART ONE
--- NOTE | 2019-04-21 16:15 | KCIC ---
PROCEDURE Therapeutic right iliopsoas injection using fluoroscopic guidance. HISTORY Hip pain. Post hip replacement. TECHNIQUE The procedure was explained to the patient as were potential risks, including among others infection, bleeding, allergic reaction or leg anesthesia from nerve infiltration. All questions were answered. Informed written consent was obtained. The anterior hip was prepped and draped in the usual sterile manner. Following administration of local anesthetic, a 22-gauge spinal needle was advanced to the expected location of the iliopsoas tendon sheath, using anatomic landmarks, and with care to avoid neurovascular structures. Stylet was removed and following negative aspiration, appropriate position was confirmed with 2 cc Omnipaque 300 contrast. A mixture of 1 cc (40 mg) Depo-Medrol, 3.5 cc 0.25% bupivacaine and 3.5 cc 1% lidocaine were injected without difficulty. The needle was removed. There was good hemostasis at the injection site. The patient left in stable condition without immediate complication. 2 spot images were obtained. FLUOROSCOPY TIME 49 seconds Electronically signed by: Jake Victoria MD (04/21/2019 4:12 PM) [id number]
== END | disposition home or self-care (01) ==
LOC: KCIC 12:13
PROVIDERS: ATTEND Orthopaedic Surgery Sports Medicine
DX: M25.551 Pain in right hip (principal); Z96.641 Presence of right artificial hip joint
CPT/HCPCS: 20610; 77002; J1030; Q9967

== ENCOUNTER 2020-06-20 09:19 | Emergency (ER) | payer MEDICARE, OTHER ==
[~2020-06-20] VITALS: Ht 162.6 cm; Wt 70.0 kg
[~2020-06-20 09:19] MED LIST changes: -BUPIVACAINE MPF 0.5% 10 ML VIAL for KCIC. IJ ONE; -IOHEXOL 300 MG/ML 50 ML VIAL. INT ART ONE; -LIDOCAINE 1% Multi-Dose 20 ML VIAL. ID ONE; +MIRT-8 PO; -MIRT30TA3 PO; +MULT-445 PO; -MULT1TAB52 PO; -OMEP40CA45 PO; +OMEP40CA7 PO; -methylPREDNISolone ACETATE 40 MG/ML VIAL. INT ART ONE
[2020-06-20 09:23] VITALS: BP 157/80
[2020-06-20] MEDS ORDERED: IOHEXOL 300 MG/ML 50 ML VIAL. INT CAT ONE (10:30)
[2020-06-20] MEDS ORDERED: IOHEXOL 300 MG/ML 50 ML VIAL. ONE (10:34)
--- NOTE | 2020-06-20 10:55 | RAD ---
Examination: XR ABDOMEN 1V History: Reason: FEEDING TUBE PLACEMENT, 50ML OF OMNI 300MG USED / Spl. Instructions: / History: Comparison/Correlation: 09/17/2017 CT abdomen and pelvis without contrast Findings: Supine portable frontal view of the abdomen was obtained. G-tube appears to be present with the balloon at the left upper quadrant. Contrast is noted within stomach and in the duodenum. Stomac h is small in size and this appears related to a gastric bypass. Suture material and surgical clips i nvolve the left upper abdomen. Radiopaque density is seen inferolateral to the course of the expected border of the stomach. This is of indeterminate significance. Radiopaque densities overlying the lef t iliac wing superiorly. No suspicious bowel distention. Right hip joint arthroplasty is partially seen. Right upper quadrant surgical clips seen. Pelvic surgical clips seen. Impression: G-tube in place. No conclusive or typical findings of extravasation. There are foci of density simila r to contrast. These are of indeterminate significance and seen at the left lateral abdomen. This may be external to the patient. No obstruction. Electronically signed by: Johnny Mays MD (06/20/2020 10:52 AM) [id number]
--- NOTE | 2020-06-20 11:37 | PHYS DOC ---
Past Medical History Past Medical History: Anxiety, Depression, GERD, Hypertension, Hypothyroid, Renal Disease Additional Past Medical Histor: bowel obstruction, CKD Past Surgical History: Cholecystectomy, Colectomy, Gastric Bypass, Hysterectomy, Tonsillectomy Additional Past Surgical Histo: COLON PERF REPAIN. ADHEASION REPAIR, Smoking Status: Never Smoker Alcohol Use: Rarely Drug Use: None General Adult EDM: Chief Complaint: GTUBE REPLACEMENT/MALFUNCTION HPI: HPI: Patient is a 75 year old female who was brought here from longterm after she accidentally pulled her feeding tube OUT this morning. Review of Systems: Review of Systems: Constitutional: Denies fever or chills. [] Eyes: Denies change in visual acuity. [] HENT: Denies nasal congestion or sore throat. [] Respiratory: Denies cough or shortness of breath. [] Cardiovascular: Denies chest pain or edema. [] GI: Denies abdominal pain, nausea, vomiting, bloody stools or diarrhea. [] : Denies dysuria. [] Musculoskeletal: Denies back pain or joint pain. [] Integument: Denies rash. [] Neurologic: Denies headache, focal weakness or sensory changes. [] Endocrine: Denies polyuria or polydipsia. [] Lymphatic: Denies swollen glands. [] Psychiatric: Denies depression or anxiety. [] Heart Score: Risk Factors: Risk Factors: DM, Current or recent (<one month) smoker, HTN, HLP, family history of CAD, obesity. Risk Scores: Score 0 - 3: 2.5% MACE over next 6 weeks - Discharge Home Score 4 - 6: 20.3% MACE over next 6 weeks - Admit for Clinical Observation Score 7 - 10: 72.7% MACE over next 6 weeks - Early Invasive Strategies Current Medications: Current Medications Medications (Trade) Dose Ordered Sig/Sumit Start Time Stop Time Status Last Admin Dose Admin Iohexol (Omnipaque 300 Mg/ml) 50 ml STK-MED ONCE 06/20/20 10:34 06/20/20 10:34 DC Allergies: Allergies: Allergies Coded Allergies Type Severity Reaction Last Updated Verified hydromorphone Allergy Intermediate Palpitations 10/14/13 Yes rosuvastatin Allergy Mild Nausea and Vomiting 10/14/13 Yes Physical Exam: PE: Constitutional: Well developed, well nourished, no acute distress, non-toxic uziel earance. [] HENT: Normocephalic, atraumatic, bilateral external ears normal, oropharynx moist, no oral exudates, nose normal. [] Eyes: PERRLA, EOMI, conjunctiva normal, no discharge. [] Neck: Normal range of motion, no tenderness, supple, no stridor. [] Cardiovascular:Heart rate regular rhythm, no murmur [] Lungs & Thorax: Bilateral breath sounds clear to auscultation [] Abdomen: Bowel sounds normal, soft, no tenderness, no masses, no pulsatile masses. [] Skin: Warm, dry, no erythema, no rash. [] Back: No tenderness, no CVA tenderness. [] Extremities: No tenderness, no cyanosis, no clubbing, ROM intact, no edema. [] Neurologic: Alert and oriented X 3, normal motor function, normal sensory function, no focal deficits noted. [] Psychologic: Affect normal, judgement normal, mood normal. [] Current Patient Data: Vital Signs: Vital Signs Date Time Temp Pulse Resp B/P (MAP) Pulse Ox O2 Delivery O2 Flow Rate FiO2 06/20/20 09:23 98.5 91 16 157/80 (105) 100 Room Air 98.5 EKG: EKG: [] Radiology/Procedures: Radiology/Procedures: [][facility] [address] [facility] [place] [address] IMAGING REPORT Signed PATIENT: BURAK KOCH ACCOUNT: [id number] : 1945 LOCATION: ER AGE: 75 SEX: F EXAM STATUS: REG ER ORD. PHYSICIAN: KRISTIN CANAS DO REASON: FEEDING TUBE PLACEMENT, 50ML OF OMNI 300MG USED PROCEDURE: KUB Examination: XR ABDOMEN 1V History: Reason: FEEDING TUBE PLACEMENT, 50ML OF OMNI 300MG USED / Spl. Instr uctions: / History: Comparison/Correlation: 09/17/2017 CT abdomen and pelvis without contrast Findings: Supine portable frontal view of the abdomen was obtained. G-tube appears to be present with the balloon at the left upper quadrant. Contrast is noted within stomach and in the duodenum. Stomach is small in size and this appears related to a gastric bypass. Suture material and surgical clips involve the left upper abdomen. Radiopaque density is seen inferolateral to the course of the expected border of the stomach. This is of indeterminate significance. Radiopaque densities overlying the left iliac wing superiorly. No suspicious bowel distention. Right hip joint arthroplasty is partially seen. Right upper quadrant surgical clips seen. Pelvic surgical clips seen. Impression: G-tube in place. No conclusive or typical findings of extravasation. There are foci of density similar to contrast. These are of indeterminate significance and seen at the left lateral abdomen. This may be external to the patient. No obstruction. Electronically signed by: Johnny Lara MD (06/20/2020 10:52 AM) [id number] DICTATED and SIGNED BY: JOHNNY LARA MD DATE: 06/20/20 [id number] G-TUBE REPLACEMENT PROCEDURE: A 19 F KANGAROO G-TUBE WAS PLACED ADVANCED INTO THE EXISTING STOMACH, BALLOON WAS INFLATED, POST XRAY CONFIRMED PLACEMENT. PATIENT TOLERATED PROCEDURE WELL. Course & Med Decision Making: Course & Med Decision Making Pertinent Labs and Imaging studies reviewed. (See chart for details) [] Dragon Disclaimer: Dragon Disclaimer: This electronic medical record was generated, in whole or in part, using a voice recognition dictation system. Departure Departure Impression: Primary Impression: Encounter for feeding tube placement Disposition: 01 DC HOME SELF CARE/HOMELESS Condition: STABLE Referrals: MICHELLE LILLY (PCP) FOLLOW UP WITH YOUR DOCTOR NEEDED Patient Instructions: Care of a Feeding Tube Site, Gastric Tube Replacement Additional Instructions: Thank you for visiting our Emergency Department. We appreciate you trusting us with your care. If any additional problems come up don't hesitate to return to visit us. Please follow up with your primary care provider so they can plan additional care if needed and know about the problem that you had. If symptoms worsen come back to the Emergency Department. Any concerning symptoms that start such as chest pain, shortness of air, weakness or numbness on one side of the body, running high fevers or any other concerning symptoms return to the ER. KRISTIN CANAS DO Jun 20, 2020 11:37
== END 2020-06-20 13:44 | disposition home or self-care (01) ==
LOC: ER 09:19
DX: K94.23 Gastrostomy malfunction (principal); F41.9 Anxiety disorder, unspecified; F32.9 Major depressive disorder, single episode, unspecified; K21.9 Gastro-esophageal reflux disease without esophagitis; I10 Essential (primary) hypertension; E03.9 Hypothyroidism, unspecified; Z90.49 Acquired absence of other specified parts of digestive tract; Z90.710 Acquired absence of both cervix and uterus; Z98.890 Other specified postprocedural states; Z90.89 Acquired absence of other organs; Z88.5 Allergy status to narcotic agent; Z88.8 Allergy status to other drugs, medicaments and biological substances
CPT/HCPCS: 43762; 74018; 99284; Q9967

== ENCOUNTER 2020-06-24 13:24 | Emergency (ER) | payer MEDICARE, OTHER ==
[~2020-06-24] VITALS: Ht 162.6 cm; Wt 50.0 kg
[2020-06-24 13:29] VITALS: BP 106/60
--- NOTE | 2020-06-24 13:42 | ED.ADGEN ---
Past Medical History Past Medical History: Anxiety, Depression, GERD, Hypertension, Hypothyroid, Renal Disease Additional Past Medical Histor: bowel obstruction, CKD Past Surgical History: Cholecystectomy, Colectomy, Gastric Bypass, Hysterectomy, Tonsillectomy Additional Past Surgical Histo: COLON PERF REPAIN. ADHEASION REPAIR, Smoking Status: Never Smoker Alcohol Use: Rarely Drug Use: None General Adult EDM: Chief Complaint: GTUBE REPLACEMENT/MALFUNCTION HPI: HPI: Patient is a 75 year old female who arrives via EMS after having her feeding tube dislodged. Patient thinks she may have dislodged her feeding to 1 to 2 hours prior to arrival. I have been told this is the third or fourth time that she has had this dislodged within the last month. Patient states she was taking a shower when this occurred. She does not have medical complaints otherwise. She is awake, alert and nontoxic-appearing. Review of Systems: Review of Systems: Constitutional: Denies fever or chills. [] Eyes: Denies change in visual acuity. [] HENT: Denies nasal congestion or sore throat. [] Respiratory: Denies cough or shortness of breath. [] Cardiovascular: Denies chest pain or edema. [] GI: Please refer to HPI. Denies abdominal pain, nausea, vomiting, bloody stools or diarrhea. [] : Denies dysuria. [] Musculoskeletal: Denies back pain or joint pain. [] Integument: Denies rash. [] Neurologic: Denies headache, focal weakness or sensory changes. [] Endocrine: Denies polyuria or polydipsia. [] Lymphatic: Denies swollen glands. [] Psychiatric: Denies depression or anxiety. [] Family History: Family History: Noncontributory Current Medications: Current Medications Medications (Trade) Dose Ordered Sig/Sumit Start Time Stop Time Status Last Admin Dose Admin Info (CONTRAST GIVEN -- Rx MONITORING) 1 each PRN DAILY PRN 06/24/20 15:15 06/26/20 15:14 Iohexol (Omnipaque 240 Mg/ml) 20 ml 1X ONCE 06/24/20 15:15 06/24/20 15:16 06/24/20 15:12 20 ML Allergies: Allergies: Allergies Coded Allergies Type Severity Reaction Last Updated Verified hydromorphone Allergy Intermediate Palpitations 10/14/13 Yes rosuvastatin Allergy Mild Nausea and Vomiting 10/14/13 Yes Physical Exam: PE: Constitutional: Well developed, well nourished, no acute distress, non-toxic appearance. [] HENT: Normocephalic, atraumatic, bilateral external ears normal, oropharynx moist, no oral exudates, nose normal. [] Eyes: PERRLA, EOMI, conjunctiva normal, no discharge. [] Neck: Normal range of motion, no tenderness, supple, no stridor. [] Cardiovascular:Heart rate regular rhythm, no murmur [] Lungs & Thorax: Bilateral breath sounds clear to auscultation [] Abdomen: Patient has a patent stoma where a feeding tube belongs. There is no surrounding inflammation, drainage or bleeding present. Bowel sounds normal, soft, no tenderness, no masses, no pulsatile masses. [] Skin: Warm, dry, no erythema, no rash. [] Back: No tenderness, no CVA tenderness. [] Extremities: No tenderness, no cyanosis, no clubbing, ROM intact, no edema. [] Neurologic: Alert and oriented X 3, normal motor function, normal sensory function, no focal deficits noted. [] Psychologic: Affect normal, judgement normal, mood normal. [] Current Patient Data: Vital Signs: Vital Signs Date Time Temp Pulse Resp B/P (MAP) Pulse Ox O2 Delivery O2 Flow Rate FiO2 06/24/20 13:29 98.3 85 12 106/60 (75) 100 Room Air 98.3 EKG: EKG: [] Heart Score: Risk Factors: Risk Factors: DM, Current or recent (<one month) smoker, HTN, HLP, family history of CAD, obesity. Risk Scores: Score 0 - 3: 2.5% MACE over next 6 weeks - Discharge Home Score 4 - 6: 20.3% MACE over next 6 weeks - Admit for Clinical Observation Score 7 - 10: 72.7% MACE over next 6 weeks - Early Invasive Strategies Radiology/Procedures: Radiology/Procedures: [] Course & Med Decision Making: Course & Med Decision Making Pertinent Labs and Imaging studies reviewed. (See chart for details) I made multiple attempts at trying to replace the patient's feeding tube without success. Dr. Hendrix's physician's assistant district attorney from GI came over and made an attempt and was unsuccessful as well. Dr. Quintanilla from interventional radiology was then consulted and came to the department for evaluation and he was unsuccessful at placing the feeding tube as well. Given these unsuccessful attempts, the patient will be transferred to interventional radiology for further evaluation and intervention. Patient had successful replacement of her G-tube in the interventional radiology lab. She has been return to the emergency department and reports to feeling well. She is stable for discharge. Dragon Disclaimer: Dragon Disclaimer: This electronic medical record was generated, in whole or in part, using a voice recognition dictation system. Departure Departure Impression: Primary Impression: Gastrojejunostomy tube dislodgement Disposition: 01 DC HOME SELF CARE/HOMELESS Condition: STABLE Referrals: MICHELLE LILLY (PCP) Patient Instructions: Gastric Tube Replacement MERYL MATTHEWS DO Jun 24, 2020 13:42
--- NOTE | 2020-06-24 14:25 | PDOC2 ---
GI CONSULT Date of Service: DATE: 06/24/20 TIME: 14:11 Reason For Consult: PEG tube dislodgement HPI: HPI: 75 y/o from care facility w/ dislodged PEG tube from this morning. "Just fell out." Called by ER physician - unable to replace in ER. We last saw her in 2016 for SBO that quickly resolved w/o surgical intervention. Complicated GI/surgical history including Radha-en-Y gastric bypass, laparotomy x 2 for SBOs, laparotomy for colon perforation (w/ ileosigmoid anastomosis), cholecystectomy, hysterectomy, PATRIZIA. Also h/o previous PEG placement by radiology at [facility] which was removed and she was able to tolerate PO diet for a few years. Says PEG was replaced 3 weeks ago by IR @ [facility]. Also says PEG has fallen out three times since then. Looks like replaced in ER here on 06/20/20. H/o GERD on PPI. No n/v, abd pain, constipation. Some bleeding from PEG site. Typically has loose stools. H/o C Diff. Hiatal hernia on past imaging. Past scopes <5 years ago @ [facility]. Additional h/o stomal narrowing w/ dilation by Dr. Sauer. S/p cholecystectomy. Says no blood thinners. PMH: PMH: GERD, C Diff, hypothyroidism, melanoma, anxiety/depression, Radha-en-Y gastric bypass, stomal ulcer/narrowing, laparotomy x 2 for SBO, laparotomy for colon perforation, PEG placement/removal/replacement, cholecystectomy, hysterectomy, adhesiolysis, tonsillectomy, right hip surgery FH: Family History: No pertinent hx Social History: Smoke: No ALCOHOL: none Drugs: None ROS: GEN: Denies fevers, chills, sweats HEENT: Denies blurred vision, sore throat CV: Denies chest pain RESP: Denies shortness of air, cough GI: Per HPI : Denies hematuria, dysuria ENDO: Denies weight changes NEURO: Denies confusion, dizziness MSK: +weakness SKIN: Denies jaundice, pruritus Vitals: Vitals: Vital Signs Date Time Temp Pulse Resp B/P (MAP) Pulse Ox O2 Delivery O2 Flow Rate FiO2 06/24/20 13:29 98.3 85 12 106/60 (75) 100 Room Air 98.3 Allergies: Coded Allergies: hydromorphone (Verified Allergy, Intermediate, Palpitations, 10/14/13) rosuvastatin (Verified Allergy, Mild, Nausea and Vomiting, 10/14/13) PE: GEN: NAD HEENT: Atraumatic, PERRL LUNGS: CTAB HEART: RRR ABD: quiet BS, soft, non-tender, PEG site left mid abdomen w/ some clotted blood EXTREMITY: No edema SKIN: No rashes, no jaundice NEURO/PSYCH: A & O 3 A/P: A/P: PEG tube dislodgement GERD, hiatal hernia - on PPI CRC screen - UTD H/o C Diff S/p cholecystectomy S/p Radha-en-Y S/p laparotomy x 2 for SBOs S/p laparotomy for colon perforation w/ ileosigmoid anastomosis -- Pt seen in ER after d/w ER physician. D/w Dr. Hendrix - would ask IR to see for PEG replacement - discussed this w/ ER. ALEK DUNCAN Jun 24, 2020 14:25
[2020-06-24] MEDS ORDERED: IOHEXOL 240 MG/ML 50ML VIAL. ONE (14:38)
--- NOTE | 2020-06-24 15:11 | NUR ---
Patient to IR for gtube placement. Tolerated well. G tube in place. Back to ED.
[2020-06-24] MEDS ORDERED: CONTRAST GIVEN. MC PRN (15:15)
[2020-06-24] MEDS ORDERED: IOHEXOL 240 MG/ML 50ML VIAL. PO ONE (15:15)
--- NOTE | 2020-06-25 08:25 | RAD ---
06/25/2020 6:18 AM Procedure: Fluoroscopically guided G tube replacement Clinical Indication: TUBE FELL OUT, inability to replace at bedside Discussion: The procedure was explained in its entirety to the patient or the patients designated field marketing representative by a member of the treatment team, including a discussion of the risks, benefits and commonly accepted alternatives to the procedure, as well as the expected consequences of no therapy whatsoever. Discussion of the risks included, but was not limited to, those that are most frequent and those that are rare but possibly severe or life-threatening, as well as the possibility of unforeseen complications. All elements of maximal sterile barrier technique including the use of a cap, mask, sterile gown, sterile gloves, large sterile sheet, appropriate hand hygiene, and 2% chlorhexidine for cutaneous antisepsis (or acceptable alternative antiseptic per current guidelines) were followed for this procedure. Under fluoroscopy a Kumpe catheter and glidewire were advanced into the gastric lumen through the pre-existing tract. This was confirmed with the administration of contrast. A new, 18 Fr G tube was advanced over the wire into the stomach. The retention balloon was inflated with 9cc of sterile water. New cathter position was confirmed with contrast. The catheter was secured with the variable stoma, and sterile dressings were applied. No immediate complications were identified. FLUORO TIME: 0.2 MIN DOSE: 1 Gycm2 Total fluoroscopy time: 2 min Dose area product: 6 Gycm2 Impression: Fluoroscopically guided G tube replacement
== END 2020-06-24 16:40 | disposition home or self-care (01) ==
LOC: ER 13:24
DX: K94.23 Gastrostomy malfunction (principal); F41.9 Anxiety disorder, unspecified; F32.9 Major depressive disorder, single episode, unspecified; K21.9 Gastro-esophageal reflux disease without esophagitis; I10 Essential (primary) hypertension; E03.9 Hypothyroidism, unspecified; N19 Unspecified kidney failure; Z90.49 Acquired absence of other specified parts of digestive tract; Z90.710 Acquired absence of both cervix and uterus; Z98.890 Other specified postprocedural states; Z88.5 Allergy status to narcotic agent; Z88.8 Allergy status to other drugs, medicaments and biological substances
CPT/HCPCS: 49450; 99284; B4087; C1769; Q9966; 43762

== ENCOUNTER 2020-06-30 03:28 | Inpatient (IN) | payer MEDICARE, OTHER ==
[~2020-06-30] VITALS: Ht 162.6 cm; Wt 56.2 kg
[2020-06-30] VITALS (14 sets, daily range): BP systolic 76–153; BP diastolic 38–75
[2020-06-30] MEDS ORDERED: IV NORMAL SALINE 500ML BAG 500 ML IV ONE (04:00)
--- NOTE | 2020-06-30 04:03 | EKG ---
[facility] [address] [place] [address] Test Date: 2020-06-30 Test Time: 03:47:05 Pat Name: BURAK KOCH Department: Room: Gender: F [employer] External: : 1945 Requested By: TOOTIE ZHANG Order Number: [id number] Reading MD: Measurements Intervals [place] Rate: 99 P: 41 [place]: 160 QRS: 47 QRSD: 84 T: 76 QT: 388 QTc: 497 Interpretive Statements SINUS RHYTHM ATRIAL PREMATURE COMPLEX(ES) LVH WITH REPOLARIZATION ABNORMALITY PROLONGED QT ABNORMAL ECG RI6.01 No previous ECG available for comparison
[2020-06-30 04:24] LABS: BASO # 0.1 x10^3/uL (0.0-0.2); BASO % 1 % (0-3); EOS % 0 % (0-3); HEMATOCRIT 37.6 % (36.0-47.0); LYMPH # 1.7 x10^3/uL (1.0-4.8); LYMPH % 16 % (24-48); MEAN CORPUSCULAR HEMOGLOBIN 32 pg (25-35); MEAN CORPUSCULAR HGB CONC 32 g/dL (31-37); MEAN CORPUSCULAR VOLUME 99 fL (79-100); MONO # 0.6 x10^3/uL (0.0-1.1); MONO % 6 % (0-9); NEUT # 8.2 x10^3/uL (1.8-7.7); NEUT % 77 % (31-73); PLATELET COUNT 416 x10^3/uL (140-400); RED BLOOD COUNT 3.81 x10^6/uL (3.50-5.40); RED CELL DISTRIBUTION WIDTH 15.1 % (11.5-14.5); WHITE BLOOD COUNT 10.7 x10^3/uL (4.0-11.0)
[2020-06-30] MEDS ORDERED: ONDANSETRON PF 4 MG/2 ML VIAL. IVP ONE (04:45)
--- NOTE | 2020-06-30 05:04 | RAD ---
EXAM: AP View of the chest DATE: 06/30/2020 4:29 AM INDICATION: weakeness COMPARISON: 09/14/2018 FINDINGS: The heart is not enlarged. Mediastinal and hilar contours are stable. Left lung base airspace opacities likely consolidative process as pneumonia. Small left pleural effus ion. No pneumothorax. IMPRESSION: Left lung base airspace opacities likely consolidative process as pneumonia. Small left pleural effus ion. Electronically signed by: Isra Luna MD (06/30/2020 5:01 AM) ANGELA
[2020-06-30 05:24] LABS: CALCIUM 9.5 mg/dL (8.5-10.1); CREATININE 2.7 mg/dL (0.6-1.0); GFR 17.2
[2020-06-30 05:25] LABS: POTASSIUM 4.4 mmol/L (3.5-5.1)
[2020-06-30 05:30] LABS: ALBUMIN 2.2 g/dL (3.4-5.0); ALBUMIN/GLOBULIN RATIO 0.5 (1.0-1.7); MAGNESIUM 1.5 mg/dL (1.8-2.4); TOTAL BILIRUBIN 0.3 mg/dL (0.2-1.0); TOTAL PROTEIN 6.9 g/dL (6.4-8.2)
--- NOTE | 2020-06-30 05:38 | ED.ADGEN ---
Past Medical History Past Medical History: Anxiety, Depression, GERD, Hypertension, Hypothyroid, Renal Disease Additional Past Medical Histor: bowel obstruction, CKD, DYSPHAGIA Past Surgical History: Cholecystectomy, Colectomy, Gastric Bypass, Hysterectomy, Tonsillectomy Additional Past Surgical Histo: COLON PERF REPAIN. ADHEASION REPAIR, Smoking Status: Never Smoker Alcohol Use: Rarely Drug Use: None General Adult EDM: Chief Complaint: WEAKNESS/GENERALIZED HPI: HPI: Patient is a 75 year old female coming in via EMS from home for weakness. Patient states she just feels bad and nauseous. Says she has been shaky and weak. Recently released from a rehab facility but is unable to walk. Also complaining of a cough and shortness of breath starting today. Denies any fevers or diarrhea. Denies any falls but does have a cuts on her right lower leg from running into the wall try to go to the bathroom. Review of Systems: Review of Systems: Constitutional: Denies fever or chills. [] Eyes: Denies change in visual acuity. [] HENT: Denies nasal congestion or sore throat. [] Respiratory: Denies cough or shortness of breath. [] Cardiovascular: Denies chest pain or edema. [] GI: Denies abdominal pain, nausea, vomiting, bloody stools or diarrhea. [] : Denies dysuria. [] Musculoskeletal: Denies back pain or joint pain. [] Integument: Denies rash. [] Neurologic: Denies headache, focal weakness or sensory changes. [] Endocrine: Denies polyuria or polydipsia. [] Lymphatic: Denies swollen glands. [] Psychiatric: Denies depression or anxiety. [] Current Medications: Current Medications Medications (Trade) Dose Ordered Sig/Sumit Start Time Stop Time Status Last Admin Dose Admin Ondansetron HCl (Zofran) 4 mg 1X ONCE 06/30/20 04:45 06/30/20 04:53 DC 06/30/20 04:45 4 MG Piperacillin Sod/ Tazobactam Sod 3.375 gm/Sodium Chloride 50 ml @ 100 mls/hr 1X ONCE 06/30/20 06:30 06/30/20 06:59 Sodium Chloride 500 ml @ 500 mls/hr 1X ONCE 06/30/20 04:00 06/30/20 04:59 DC 06/30/20 04:00 500 MLS/HR Vancomycin HCl 1 gm/Sodium Chloride 250 ml @ 250 mls/hr 1X ONCE 06/30/20 06:45 06/30/20 07:44 Allergies: Allergies: Allergies Coded Allergies Type Severity Reaction Last Updated Verified hydromorphone Allergy Intermediate Palpitations 10/14/13 Yes rosuvastatin Allergy Mild Nausea and Vomiting 10/14/13 Yes Physical Exam: PE: Constitutional: Well developed, well nourished, no acute distress, non-toxic appearance. [] HENT: Normocephalic, atraumatic, bilateral external ears normal, oropharynx moist, no oral exudates, nose normal. [] Eyes: PERRLA, EOMI, conjunctiva normal, no discharge. [] Neck: Normal range of motion, no tenderness, supple, no stridor. [] Cardiovascular:Heart rate regular rhythm, no murmur [] Lungs & Thorax: Bilateral breath sounds clear to auscultation [] Abdomen: Bowel sounds normal, soft, no tenderness, no masses, no pulsatile masses. [] Skin: Warm, dry, no erythema, no rash. [] Back: No tenderness, no CVA tenderness. [] Extremities: No tenderness, no cyanosis, no clubbing, ROM intact, no edema. [] Neurologic: Alert and oriented X 3, normal motor function, normal sensory function, no focal deficits noted. [] Psychologic: Affect normal, judgement normal, mood normal. [] Current Patient Data: Labs: Laboratory Tests Test 06/30/20 04:15 06/30/20 05:10 White Blood Count 10.7 x10^3/uL (4.0-11.0) Red Blood Count 3.81 x10^6/uL (3.50-5.40) Hemoglobin 12.0 g/dL (12.0-15.5) Hematocrit 37.6 % (36.0-47.0) Mean Corpuscular Volume 99 fL (79-100) Mean Corpuscular Hemoglobin 32 pg (25-35) Mean Corpuscular Hemoglobin Concent 32 g/dL (31-37) Red Cell Distribution Width 15.1 % (11.5-14.5) H Platelet Count 416 x10^3/uL (140-400) H Neutrophils (%) (Auto) 77 % (31-73) H Lymphocytes (%) (Auto) 16 % (24-48) L Monocytes (%) (Auto) 6 % (0-9) Eosinophils (%) (Auto) 0 % (0-3) Basophils (%) (Auto) 1 % (0-3) Neutrophils # (Auto) 8.2 x10^3/uL (1.8-7.7) H Lymphocytes # (Auto) 1.7 x10^3/uL (1.0-4.8) Monocytes # (Auto) 0.6 x10^3/uL (0.0-1.1) Eosinophils # (Auto) 0.0 x10^3/uL (0.0-0.7) Basophils # (Auto) 0.1 x10^3/uL (0.0-0.2) Lactic Acid Level 1.1 mmol/L (0.4-2.0) Sodium Level 140 mmol/L (136-145) Potassium Level 4.4 mmol/L (3.5-5.1) Chloride Level 109 mmol/L (98-107) H Carbon Dioxide Level 15 mmol/L (21-32) L Anion Gap 16 (6-14) H Blood Urea Nitrogen 77 mg/dL (7-20) H Creatinine 2.7 mg/dL (0.6-1.0) H Estimated GFR (Cockcroft-Gault) 17.2 BUN/Creatinine Ratio 29 (6-20) H Glucose Level 119 mg/dL (70-99) H Calcium Level 9.5 mg/dL (8.5-10.1) Phosphorus Level 4.0 mg/dL (2.6-4.7) Magnesium Level 1.5 mg/dL (1.8-2.4) L Total Bilirubin 0.3 mg/dL (0.2-1.0) Aspartate Amino Transferase (AST) 38 U/L (15-37) H Alanine Aminotransferase (ALT) 37 U/L (14-59) Alkaline Phosphatase 109 U/L (46-116) Troponin I Quantitative 0.053 ng/mL (0.000-0.055) NM-Kar-H-Type Natriuretic Peptide 69922 pg/mL (0-124) H Total Protein 6.9 g/dL (6.4-8.2) Albumin 2.2 g/dL (3.4-5.0) L Albumin/Globulin Ratio 0.5 (1.0-1.7) L Thyroid Stimulating Hormone (TSH) 2.686 uIU/mL (0.358-3.74) Laboratory Tests 06/30/20 04:15 Laboratory Tests 06/30/20 05:10 EKG: EKG: Sinus rhythm, LVH, heart rate 90 bpm, few PACs, no ST elevation or depression, T wave inversions in V2 [] Heart Score: Risk Factors: Risk Factors: DM, Current or recent (<one month) smoker, HTN, HLP, family history of CAD, obesity. Risk Scores: Score 0 - 3: 2.5% MACE over next 6 weeks - Discharge Home Score 4 - 6: 20.3% MACE over next 6 weeks - Admit for Clinical Observation Score 7 - 10: 72.7% MACE over next 6 weeks - Early Invasive Strategies Radiology/Procedures: Radiology/Procedures: EXAM: AP View of the chest DATE: 06/30/2020 4:29 AM INDICATION: weakeness COMPARISON: 09/14/2018 FINDINGS: The heart is not enlarged. Mediastinal and hilar contours are stable. Left lung base airspace opacities likely consolidative process as pneumonia. Small left pleural effusion. No pneumothorax. IMPRESSION: Left lung base airspace opacities likely consolidative process as pneumonia. Small left pleural effusion. [] Course & Med Decision Making: Course & Med Decision Making Pertinent Labs and Imaging studies reviewed. (See chart for details) [] Dragon Disclaimer: Dragon Disclaimer: This electronic medical record was generated, in whole or in part, using a voice recognition dictation system. Departure Departure Impression: Primary Impression: HCAP (healthcare-associated pneumonia) Additional Impression: Weakness Disposition: 09 ADMITTED INPT THIS HOSP Admitting Physician: MAZIN Condition: STABLE Referrals: MICHELLE LILLY (PCP) Problem Qualifiers TOOTIE ZHANG MD Jun 30, 2020 05:38
[2020-06-30] MEDS ORDERED: PIPERACILLIN/TAZOBACTAM 3.375 GM in IV NORMAL SALINE 50ML 50 ML IV ONE (06:30)
[2020-06-30] MEDS ORDERED: VANCOMYCIN 1 GM in IV NORMAL SALINE 250ML 250 ML IV ONE (06:45)
[2020-06-30 06:53] LABS: BILIRUBIN,URINE SMALL (NEG); CLARITY,URINE TURBID; COLOR,URINE YELLOW; NITRITE,URINE NEGATIVE (NEG); PROTEIN,URINE 100 mg/dL (NEG-TRACE); UROBILINOGEN,URINE 0.2 mg/dL (0.2 mg/dL)
[2020-06-30] MEDS ORDERED: ACETAMINOPHEN 325 MG TABLET. PO PRN ×2 (07:00→10:45)
[2020-06-30] MEDS ORDERED: ONDANSETRON PF 4 MG/2 ML VIAL. IV PRN (07:00)
[2020-06-30 07:34] LABS: BACTERIA,URINE MANY /HPF (0-FEW); RBC,URINE FIELD OBSCURED /HPF (0-2); WBC,URINE TNTC /HPF (0-4)
[2020-06-30] MEDS: IV NORMAL SALINE 1000ML BAG 1,000 ML IV SCH ×5 (08:40→23:25)
--- NOTE | 2020-06-30 09:11 | PDOC1 ---
History and Physical Date of Admission Date of Admission DATE: 06/30/20 TIME: 09:11 Identification/Chief Complaint Chief Complaint seen in er with septic shock 75 year old female coming in via EMS from home for weakness. feels bad and nauseous. shaky and weak. Recently released from a rehab facility but is unable to walk. // complaining of a cough and shortness of breath starting today. Denies any fevers or diarrhea. Denies any falls but does have a cuts on her right lower leg from running into the wall try to go to the bathroom became hypotensive in ER, PRESSORS STARTED Past Medical History Past Medical History Past Medical History Past Medical History: Anxiety, Depression, GERD, Hypertension, Hypothyroid, Renal Disease Additional Past Medical Histor: bowel obstruction, CKD, DYSPHAGIA Past Surgical History: Cholecystectomy, Colectomy, Gastric Bypass, Hysterectomy, Tonsillectomy Additional Past Surgical Histo: COLON PERF REPAIN. ADHEASION REPAIR, Smoking Status: Never Smoker Alcohol Use: Rarely Drug Use: None FHX HTN Cardiovascular: No pertinent hx Pulmonary: No pertinent hx GI: Gastritis Heme/Onc: No pertinent hx Hepatobiliary: No pertinent hx Psych: No pertinent hx Rheumatologic: No pertinent hx Infectious disease: No pertinent hx Renal/: No pertinent hx Endocrine: No pertinent hx Past Surgical History Past Surgical History: Other Family History Family History: No Significant Social History ALCOHOL: none Drugs: None Current Problem List Problem List Problems Medical Problems: (1) HCAP (healthcare-associated pneumonia) Status: Acute (2) Weakness Status: Acute Current Medications Current Medications Current Medications Sodium Chloride 500 ml @ 500 mls/hr 1X ONCE IV Last administered on 06/30/20at 04:00; Start 06/30/20 at 04:00; Stop 06/30/20 at 04:59; Status DC Ondansetron HCl (Zofran) 4 mg 1X ONCE IVP Last administered on 06/30/20at 04:45; Start 06/30/20 at 04:45; Stop 06/30/20 at 04:53; Status DC Vancomycin HCl 1 gm/Sodium Chloride 250 ml @ 250 mls/hr 1X ONCE IV Last administered on 06/30/20at 08:37; Start 06/30/20 at 06:45; Stop 06/30/20 at 07:44; Status DC Piperacillin Sod/ Tazobactam Sod 3.375 gm/Sodium Chloride 50 ml @ 100 mls/hr 1X ONCE IV Last administered on 06/30/20at 07:54; Start 06/30/20 at 06:30; Stop 06/30/20 at 06:59; Status DC Ondansetron HCl (Zofran) 4 mg PRN Q8HRS PRN IV NAUSEA/VOMITING; Start 06/30/20 at 07:00; Stop 07/01/20 at 06:59 Sodium Chloride 1,000 ml @ 75 mls/hr [id number] IV Last administered on 06/30/20at 08:40; Start 06/30/20 at 07:00; Stop 07/01/20 at 06:59 Acetaminophen (Tylenol) 650 mg PRN Q4HRS PRN PO FEVER > 100.3'F; Start 06/30/20 at 07:00; Stop 07/01/20 at 06:59 Active Scripts Active Percocet 5-325 Mg Tablet (Oxycodone/Acetaminophen) 1 Each Tablet 1 Tab PO PRN Q4HRS PRN 6 Days Tylenol (Acetaminophen) 325 Mg Tablet 650 Mg PO PRN Q4HRS PRN 30 Days Ativan (Lorazepam) 0.5 Mg Tablet 0.5 Mg PO PRN Q4HRS PRN 15 Days Furosemide 40 Mg Tablet 40 Mg PO DAILY 30 Days Senna-Time S Tablet (Sennosides/Docusate Sodium) 1 Each Tablet 2 Tab PO PRN BID PRN 30 Days Enoxaparin Sodium 30 Mg/0.3 Ml Disp.syrin 30 Mg SQ Q24H 14 Days Reported Calcium + Vitamin D Tablet (Calcium Carbonate/Vitamin D3) 1 Each Tablet 2 Each PO DAILY Multivitamins (Multivitamin) 1 Each Tablet 1 Tab PO DAILY Sodium Bicarbonate 650 Mg Tablet 2 Tab PO TID Levothyroxine Sodium 100 Mcg Tablet 100 Mcg PO DAILYAC Abilify (Aripiprazole) 10 Mg Tablet 2 Tab PO HS Wellbutrin Sr (Bupropion Hcl) 150 Mg Tablet.er 150 Mg PO DAILY Omeprazole 40 Mg Capsule.dr 40 Mg PO BID Gabapentin 600 Mg Tablet 1,200 Mg PO BID Mirtazapine 30 Mg Tablet 30 Mg PO HS Citalopram Hbr (Citalopram Hydrobromide) 40 Mg Tablet 20 Mg PO DAILY Allergies Allergies: Coded Allergies: hydromorphone (Verified Allergy, Intermediate, Palpitations, 10/14/13) rosuvastatin (Verified Allergy, Mild, Nausea and Vomiting, 10/14/13) ROS Review of System Review of Systems: Constitutional: Denies fever or chills. [] Eyes: Denies change in visual acuity. [] HENT: Denies nasal congestion or sore throat. [] Respiratory: Denies cough or shortness of breath. [] Cardiovascular: Denies chest pain or edema. [] GI: Denies abdominal pain, nausea, vomiting, bloody stools or diarrhea. [] : Denies dysuria. [] Musculoskeletal: Denies back pain or joint pain. [] Integument: Denies rash. [] Neurologic: Denies headache, focal weakness or sensory changes. [] Endocrine: Denies polyuria or polydipsia. [] Lymphatic: Denies swollen glands. [] Psychiatric: Denies depression or anxiety. 14 pt ros otherwise neg Physical Exam Physical Exam Constitutional: Well developed, well nourished, no acute distress, non-toxic appearance. [] HENT: Normocephalic, atraumatic, bilateral external ears normal, oropharynx moist, no oral exudates, nose normal. [] Eyes: PERRLA, EOMI, conjunctiva normal, no discharge. [] Neck: Normal range of motion, no tenderness, supple, no stridor. [] Cardiovascular:Heart rate regular rhythm, no murmur [] Lungs & Thorax: Bilateral breath sounds clear to auscultation [] Abdomen: Bowel sounds normal, soft, no tenderness, no masses, no pulsatile mass es. [] Skin: Warm, dry, no erythema, no rash. [] Back: No tenderness, no CVA tenderness. [] Extremities: No tenderness, no cyanosis, no clubbing, ROM intact, no edema. [] Neurologic: Alert and oriented X 3, normal motor function, normal sensory function, no focal deficits noted. [] General: Cooperative HEENT: Atraumatic, EOMI Lungs: Normal air movement Heart: no thrills Breasts: Not examined Abdomen: Soft, No tenderness Rectal Exam: not examined PELVIC: Examination not indicated Extremities: No cyanosis Neuro: Cranial nerves 3-12 NL Vitals Vitals Vital Signs Date Time Temp Pulse Resp B/P (MAP) Pulse Ox O2 Delivery O2 Flow Rate FiO2 06/30/20 09:05 93 19 99 06/30/20 03:48 97.8 87/60 (69) Room Air 97.8 Labs Labs Laboratory Tests Test 06/30/20 04:15 06/30/20 05:10 06/30/20 05:30 White Blood Count 10.7 x10^3/uL (4.0-11.0) Red Blood Count 3.81 x10^6/uL (3.50-5.40) Hemoglobin 12.0 g/dL (12.0-15.5) Hematocrit 37.6 % (36.0-47.0) Mean Corpuscular Volume 99 fL (79-100) Mean Corpuscular Hemoglobin 32 pg (25-35) Mean Corpuscular Hemoglobin Concent 32 g/dL (31-37) Red Cell Distribution Width 15.1 % (11.5-14.5) Platelet Count 416 x10^3/uL (140-400) Neutrophils (%) (Auto) 77 % (31-73) Lymphocytes (%) (Auto) 16 % (24-48) Monocytes (%) (Auto) 6 % (0-9) Eosinophils (%) (Auto) 0 % (0-3) Basophils (%) (Auto) 1 % (0-3) Neutrophils # (Auto) 8.2 x10^3/uL (1.8-7.7) Lymphocytes # (Auto) 1.7 x10^3/uL (1.0-4.8) Monocytes # (Auto) 0.6 x10^3/uL (0.0-1.1) Eosinophils # (Auto) 0.0 x10^3/uL (0.0-0.7) Basophils # (Auto) 0.1 x10^3/uL (0.0-0.2) Lactic Acid Level 1.1 mmol/L (0.4-2.0) Sodium Level 140 mmol/L (136-145) Potassium Level 4.4 mmol/L (3.5-5.1) Chloride Level 109 mmol/L (98-107) Carbon Dioxide Level 15 mmol/L (21-32) Anion Gap 16 (6-14) Blood Urea Nitrogen 77 mg/dL (7-20) Creatinine 2.7 mg/dL (0.6-1.0) Estimated GFR (Cockcroft-Gault) 17.2 BUN/Creatinine Ratio 29 (6-20) Glucose Level 119 mg/dL (70-99) Calcium Level 9.5 mg/dL (8.5-10.1) Phosphorus Level 4.0 mg/dL (2.6-4.7) Magnesium Level 1.5 mg/dL (1.8-2.4) Total Bilirubin 0.3 mg/dL (0.2-1.0) Aspartate Amino Transf (AST/SGOT) 38 U/L (15-37) Alanine Aminotransferase (ALT/SGPT) 37 U/L (14-59) Alkaline Phosphatase 109 U/L (46-116) Troponin I Quantitative 0.053 ng/mL (0.000-0.055) UH-Hbk-I-Type Natriuretic Peptide 63115 pg/mL (0-124) Total Protein 6.9 g/dL (6.4-8.2) Albumin 2.2 g/dL (3.4-5.0) Albumin/Globulin Ratio 0.5 (1.0-1.7) Thyroid Stimulating Hormone (TSH) 2.686 uIU/mL (0.358-3.74) Urine Collection Type U cath Urine Color Yellow Urine Clarity Turbid Urine pH 6.0 (<5.0-8.0) Urine Specific Randolph 1.020 (1.000-1.030) Urine Protein 100 mg/dL (NEG-TRACE) Urine Glucose (UA) Negative mg/dL (NEG) Urine Ketones (Stick) Negative mg/dL (NEG) Urine Blood Small (NEG) Urine Nitrite Negative (NEG) Urine Bilirubin Small (NEG) Urine Urobilinogen Dipstick 0.2 mg/dL (0.2 mg/dL) Urine Leukocyte Esterase Large (NEG) Urine RBC Field obscured /HPF (0-2) Urine WBC Tntc /HPF (0-4) Urine Bacteria Many /HPF (0-FEW) Laboratory Tests Test 06/30/20 04:15 06/30/20 05:10 06/30/20 05:30 White Blood Count 10.7 x10^3/uL (4.0-11.0) Red Blood Count 3.81 x10^6/uL (3.50-5.40) Hemoglobin 12.0 g/dL (12.0-15.5) Hematocrit 37.6 % (36.0-47.0) Mean Corpuscular Volume 99 fL (79-100) Mean Corpuscular Hemoglobin 32 pg (25-35) Mean Corpuscular Hemoglobin Concent 32 g/dL (31-37) Red Cell Distribution Width 15.1 % (11.5-14.5) Platelet Count 416 x10^3/uL (140-400) Neutrophils (%) (Auto) 77 % (31-73) Lymphocytes (%) (Auto) 16 % (24-48) Monocytes (%) (Auto) 6 % (0-9) Eosinophils (%) (Auto) 0 % (0-3) Basophils (%) (Auto) 1 % (0-3) Neutrophils # (Auto) 8.2 x10^3/uL (1.8-7.7) Lymphocytes # (Auto) 1.7 x10^3/uL (1.0-4.8) Monocytes # (Auto) 0.6 x10^3/uL (0.0-1.1) Eosinophils # (Auto) 0.0 x10^3/uL (0.0-0.7) Basophils # (Auto) 0.1 x10^3/uL (0.0-0.2) Lactic Acid Level 1.1 mmol/L (0.4-2.0) Sodium Level 140 mmol/L (136-145) Potassium Level 4.4 mmol/L (3.5-5.1) Chloride Level 109 mmol/L (98-107) Carbon Dioxide Level 15 mmol/L (21-32) Anion Gap 16 (6-14) Blood Urea Nitrogen 77 mg/dL (7-20) Creatinine 2.7 mg/dL (0.6-1.0) Estimated GFR (Cockcroft-Gault) 17.2 BUN/Creatinine Ratio 29 (6-20) Glucose Level 119 mg/dL (70-99) Calcium Level 9.5 mg/dL (8.5-10.1) Phosphorus Level 4.0 mg/dL (2.6-4.7) Magnesium Level 1.5 mg/dL (1.8-2.4) Total Bilirubin 0.3 mg/dL (0.2-1.0) Aspartate Amino Transf (AST/SGOT) 38 U/L (15-37) Alanine Aminotransferase (ALT/SGPT) 37 U/L (14-59) Alkaline Phosphatase 109 U/L (46-116) Troponin I Quantitative 0.053 ng/mL (0.000-0.055) BO-Ulf-G-Type Natriuretic Peptide 73096 pg/mL (0-124) Total Protein 6.9 g/dL (6.4-8.2) Albumin 2.2 g/dL (3.4-5.0) Albumin/Globulin Ratio 0.5 (1.0-1.7) Thyroid Stimulating Hormone (TSH) 2.686 uIU/mL (0.358-3.74) Urine Collection Type U cath Urine Color Yellow Urine Clarity Turbid Urine pH 6.0 (<5.0-8.0) Urine Specific Randolph 1.020 (1.000-1.030) Urine Protein 100 mg/dL (NEG-TRACE) Urine Glucose (UA) Negative mg/dL (NEG) Urine Ketones (Stick) Negative mg/dL (NEG) Urine Blood Small (NEG) Urine Nitrite Negative (NEG) Urine Bilirubin Small (NEG) Urine Urobilinogen Dipstick 0.2 mg/dL (0.2 mg/dL) Urine Leukocyte Esterase Large (NEG) Urine RBC Field obscured /HPF (0-2) Urine WBC Tntc /HPF (0-4) Urine Bacteria Many /HPF (0-FEW) Images Images PATIENT: BURAK KOCH ACCOUNT: [id number] : 1945 LOCATION: ER AGE: 75 SEX: F EXAM STATUS: REG ER ORD. PHYSICIAN: TOOTIE ZHANG MD REASON: weakeness PROCEDURE: CHEST AP ONLY EXAM: AP View of the chest DATE: 06/30/2020 4:29 AM INDICATION: weakeness COMPARISON: 09/14/2018 FINDINGS: The heart is not enlarged. Mediastinal and hilar contours are stable. Left lung base airspace opacities likely consolidative process as pneumonia. Small left pleural effusion. No pneumothorax. IMPRESSION: Left lung base airspace opacities likely consolidative process as pneumonia. Small left pleural effusion. Electronically signed by: Isra Guzman MD (06/30/2020 5:01 AM) [facility] DICTATED and SIGNED BY: ISRA GUZMAN MD DATE: 06/30/20 [id number] VTE Prophylaxis Ordered VTE Prophylaxis Devices: Yes VTE Pharmacological Prophylaxi: Yes Assessment/Plan Assessment/Plan IMPRESSION: SEVERE SEPSIS Left lung base airspace consolidative process as pneumonia. Small left pleural effusion. suspect aspiration and COVID 19 UTI NIC, HYPOPERFUSION, SHOCK PUI PLAN ADMIT ICU ID CONSULT PULM CONSULT BLOOD CULTURES NEPHROLOGY CONSULT DVT PROPHYLAXIS GI prophylaxis 64 MIN CC TIME Justifications for Admission Other Justification DANIELE FRANKS MD Jun 30, 2020 09:11
[2020-06-30] MEDS ORDERED: PIP/TAZO PER PHARMACY MC PRN (09:15)
[2020-06-30] MEDS: NOREPINEPHRINE VIAL 8 MG in IV DEXTROSE 5% 250 ML IV PRN ×2 (09:26→19:36)
[2020-06-30] MEDS ORDERED: BISACODYL 10 MG SUPP.RECT. PR PRN (10:45)
[2020-06-30] MEDS ORDERED: ONDANSETRON PF 4 MG/2 ML VIAL. IVP PRN (10:45)
[2020-06-30] MEDS ORDERED: PROCHLORPERAZINE 25 MG SUPP.RECT. PR PRN (10:45)
[2020-06-30] MEDS ORDERED: 0.9 % SODIUM CHLORIDE 10 ML DISP.SYRIN. IV PRN (10:45)
[2020-06-30] MEDS ORDERED: HYDROmorphone 2 MG/ML VIAL IV PRN (10:45)
[2020-06-30] MEDS ORDERED: NOREPINEPHRINE VIAL 8 MG in IV DEXTROSE 5% 250 ML IV PRN (11:00)
[2020-06-30] MEDS ORDERED: IV NORMAL SALINE 500ML BAG 500 ML IV PRN (11:00)
--- NOTE | 2020-06-30 12:03 | CONS ---
DATE OF CONSULTATION: PULMONARY CONSULTATION ATTENDING PHYSICIAN: Dr. Gustafson. REASON FOR CONSULTATION: Pneumonia, hypoxia. HISTORY OF PRESENT ILLNESS: The patient is a 75-year-old female with no significant tobacco history. She was discharged recently from a rehab facility. She was brought into the hospital with weakness. She also had some emesis yesterday. She was very weak and shaky in the ER. She had some mild cough and mild shortness of breath. Patient's chest x-ray was reviewed. There is evidence of infiltrate in the left lower lobe and a small left pleural effusion. She was noted to be hypotensive in the ER with systolic blood pressure in the 80s. She received a liter of fluid bolus and currently on Levophed. She received antibiotics in the ER including Zosyn and vancomycin. PAST MEDICAL HISTORY: Significant for anxiety, depression, GERD, hypertension, hypothyroidism, renal disease, bowel obstruction, and CKD. PAST SURGICAL HISTORY: Cholecystectomy, colectomy and others including gastric bypass. SOCIAL HISTORY: Nonsmoker. ALLERGIES: HYDROMORPHONE AND ROSUVASTATIN. MEDICATIONS: Given in the ER were reviewed. REVIEW OF SYSTEMS: Ten-point system obtained. Pertinent positives discussed in my history of present illness, otherwise noncontributory. FAMILY HISTORY: Noncontributory to lungs. PHYSICAL EXAMINATION: VITAL SIGNS: In the ER were reviewed. Blood pressure currently is in the 90s systolic. Pulse is in the 90s. NECK: Supple. LUNGS: With diminished breath sounds. CARDIOVASCULAR: With a regular rate. ABDOMEN: Soft. EXTREMITIES: With no pitting edema. LABORATORY DATA: Reviewed. White cell count 10.7, hemoglobin 12.2, platelets are 416. BUN 77, creatinine 2.7. IMPRESSION: 1. Acute hypoxic respiratory failure secondary to combination of pneumonia and septic shock. 2. Septic shock, likely source is pneumonia and a component of volume depletion as well. 3. Acute kidney injury, likely component of hypovolemia. 4. Severe protein-calorie malnutrition. 5. No significant tobacco history. RECOMMENDATIONS: 1. Discussed with RN in the ER. We will continue present oxygen at 2 liters. 2. Continue IV fluids and wean vasopressor. 3. Broad-spectrum antibiotics. 4. Monitor renal function closely. 5. Rule out for COVID. Clinical suspicion is low. 6. DVT prophylaxis with subcutaneous heparin. 7. Discussed with ER physician and RN. We will follow along with you. Critical care time 30 minutes. BISHOP GUADARRAMA MD DR: DIANA/chris JOB#: [id number] / [id number]
[2020-06-30] MEDS: PIPERACILLIN/TAZOBACTAM 2.25 GM in IV NORMAL SALINE 50ML 50 ML IV SCH ×3 (13:32→23:51)
[2020-06-30] MEDS: FAMOTIDINE 20 MG/2 ML VIAL IVP SCH (13:34)
[2020-06-30] MEDS: HEPARIN for SUB-Q USE 5,000 UNIT/ML VIAL. SQ SCH ×2 (14:00→23:19)
--- NOTE | 2020-06-30 16:55 | PDOC2 ---
CONSULT Date of Consult Date of Consult DATE: 06/30/20 TIME: 16:44 Reason for Consult Reason for Consult: NIC Referring Physician Referring Physician: GOLDEN Identification/Chief Complaint Chief Complaint CONFUSION AND SOB Source Source: Chart review History of Present Illness Reason for Visit: THIS IS A 75 YR OLD WITH SOB AND WEAKNESS. HAS HAS SOME COUGHING WELL. SHE HAS A LLL INFILTRATE ON CXRAY. SHE IS HYPOTENSIVE AND ON PRESSORS. SHE HAS KNOWN CKD STAGE 4 WITH CR OF 1.7 AT BASELINE. SHE IS ALSO NOTED TO HAVE LOW MAG AND AN AG MET ACIDOSIS. CURRENTLY BEING EVALUATED BY PULM. NO NEPHROTOXINS NOTED. NO OTHER HX REPORTED Past Medical History Cardiovascular: No pertinent hx Pulmonary: No pertinent hx GI: Gastritis Heme/Onc: No pertinent hx Hepatobiliary: No pertinent hx Psych: No pertinent hx Rheumatologic: No pertinent hx Infectious disease: No pertinent hx Renal/: No pertinent hx, Chronic renal insuff Endocrine: No pertinent hx Past Surgical History Past Surgical History: Other Family History Family History: No Significant Social History ALCOHOL: none Drugs: None Lives: with Family Current Problem List Problem List Problems Medical Problems: (1) HCAP (healthcare-associated pneumonia) Status: Acute (2) Weakness Status: Acute Current Medications Current Medications Current Medications Sodium Chloride 500 ml @ 500 mls/hr 1X ONCE IV Last administered on 06/30/20at 04:00; Start 06/30/20 at 04:00; Stop 06/30/20 at 04:59; Status DC Ondansetron HCl (Zofran) 4 mg 1X ONCE IVP Last administered on 06/30/20at 04:45; Start 06/30/20 at 04:45; Stop 06/30/20 at 04:53; Status DC Vancomycin HCl 1 gm/Sodium Chloride 250 ml @ 250 mls/hr 1X ONCE IV Last administered on 06/30/20at 08:37; Start 06/30/20 at 06:45; Stop 06/30/20 at 07:44; Status DC Piperacillin Sod/ Tazobactam Sod 3.375 gm/Sodium Chloride 50 ml @ 100 mls/hr 1X ONCE IV Last administered on 06/30/20at 07:54; Start 06/30/20 at 06:30; Stop 06/30/20 at 06:59; Status DC Ondansetron HCl (Zofran) 4 mg PRN Q8HRS PRN IV NAUSEA/VOMITING; Start 06/30/20 at 07:00; Stop 07/01/20 at 06:59 Sodium Chloride 1,000 ml @ 75 mls/hr [id number] IV Last administered on 06/30/20at 08:40; Start 06/30/20 at 07:00; Stop 07/01/20 at 06:59 Acetaminophen (Tylenol) 650 mg PRN Q4HRS PRN PO FEVER > 100.3'F; Start 06/30/20 at 07:00; Stop 07/01/20 at 06:59 Piperacillin Sod/ Tazobactam Sod (Zosyn Per Pharmacy) 1 each PRN DAILY PRN MC SEE COMMENTS; Start 06/30/20 at 09:15 Norepinephrine Bitartrate 8 mg/ Dextrose 258 ml @ 11.61 mls/ hr CONT PRN IV PER PROTOCOL Last administered on 06/30/20at 09:26; Start 06/30/20 at 09:15 Piperacillin Sod/ Tazobactam Sod 2.25 gm/Sodium Chloride 50 ml @ 100 mls/hr Q6HRS IV Last administered on 06/30/20at 13:32; Start 06/30/20 at 12:00 Acetaminophen (Tylenol) 650 mg PRN Q6HRS PRN PO Headaches, Temp > 101.5'; Start 06/30/20 at 10:45 Ondansetron HCl (Zofran) 4 mg PRN Q6HRS PRN IVP NAUSEA/VOMITING; Start 06/30/20 at 10:45 Prochlorperazine (Compazine) 25 mg PRN Q12HR PRN SC NAUSEA/VOMITING; Start 06/30/20 at 10:45 Famotidine (Pepcid Vial) 20 mg DAILY IVP Last administered on 06/30/20at 13:34; Start 06/30/20 at 12:00 Info (Icu Electrolyte Protocol) 1 ea DAILY MC ; Start 07/01/20 at 09:00 Heparin Sodium (Porcine) (Heparin Sodium) 5,000 unit Q8HRS SQ ; Start 06/30/20 at 14:00 Sodium Chloride (Normal Saline Flush) 3 ml QSHIFT PRN IV AFTER MEDS AND BLOOD DRAWS; Start 06/30/20 at 10:45 Sodium Chloride 1,000 ml @ 100 mls/hr Q10H IV Last administered on 06/30/20at 13:30; Start 06/30/20 at 10:45 Hydromorphone HCl (Dilaudid) 0.2 mg PRN Q1HR PRN IV PAIN; Start 06/30/20 at 10:45; Status UNV Bisacodyl (Dulcolax Supp) 10 mg PRN DAILY PRN SC CONSTIPATION; Start 06/30/20 a t 10:45 Sodium Chloride 1,000 ml @ 1,650 mls/hr Q37M IV ; Start 06/30/20 at 11:00; Stop 06/30/20 at 12:00; Status DC Sodium Chloride 500 ml @ 1,000 mls/hr PRN Q30MIN PRN IV SEE COMMENTS; Start 06/30/20 at 11:00 Norepinephrine Bitartrate 8 mg/ Dextrose 258 ml @ 0 mls/hr CONT PRN IV SEE I/O RECORD; Start 06/30/20 at 11:00; Status UNV Active Scripts Active Percocet 5-325 Mg Tablet (Oxycodone/Acetaminophen) 1 Each Tablet 1 Tab PO PRN Q4HRS PRN 6 Days Tylenol (Acetaminophen) 325 Mg Tablet 650 Mg PO PRN Q4HRS PRN 30 Days Ativan (Lorazepam) 0.5 Mg Tablet 0.5 Mg PO PRN Q4HRS PRN 15 Days Furosemide 40 Mg Tablet 40 Mg PO DAILY 30 Days Senna-Time S Tablet (Sennosides/Docusate Sodium) 1 Each Tablet 2 Tab PO PRN BID PRN 30 Days Enoxaparin Sodium 30 Mg/0.3 Ml Disp.syrin 30 Mg SQ Q24H 14 Days Reported Calcium + Vitamin D Tablet (Calcium Carbonate/Vitamin D3) 1 Each Tablet 2 Each PO DAILY Multivitamins (Multivitamin) 1 Each Tablet 1 Tab PO DAILY Sodium Bicarbonate 650 Mg Tablet 2 Tab PO TID Levothyroxine Sodium 100 Mcg Tablet 100 Mcg PO DAILYAC Abilify (Aripiprazole) 10 Mg Tablet 2 Tab PO HS Wellbutrin Sr (Bupropion Hcl) 150 Mg Tablet.er 150 Mg PO DAILY Omeprazole 40 Mg Capsule.dr 40 Mg PO BID Gabapentin 600 Mg Tablet 1,200 Mg PO BID Mirtazapine 30 Mg Tablet 30 Mg PO HS Citalopram Hbr (Citalopram Hydrobromide) 40 Mg Tablet 20 Mg PO DAILY Allergies Allergies: Coded Allergies: hydromorphone (Verified Allergy, Intermediate, Palpitations, 10/14/13) rosuvastatin (Verified Allergy, Mild, Nausea and Vomiting, 10/14/13) ROS Review of System UNABLE TO OBTAIN FROM PT Physical Exam General: mild distress HEENT: Atraumatic, PERRLA Lungs: Other (DECREAED AT BASES) Heart: Regular rate Abdomen: Normal bowel sounds, Soft, No tenderness Extremities: No cyanosis Skin: No breakdown Neuro: Other (CONFUSED) Psych/Mental Status: Other (STABLE) MUSCULOSKELETAL: No joint tenderness, No deformity, No swelling Vitals VITALS Vital Signs Date Time Temp Pulse Resp B/P (MAP) Pulse Ox O2 Delivery O2 Flow Rate FiO2 06/30/20 16:15 Room Air 06/30/20 14:45 96 20 120/50 (73) 95 06/30/20 13:00 99.9 99.9 Labs Labs Laboratory Tests Test 06/30/20 04:15 06/30/20 04:19 06/30/20 05:10 06/30/20 05:30 White Blood Count 10.7 x10^3/uL (4.0-11.0) Red Blood Count 3.81 x10^6/uL (3.50-5.40) Hemoglobin 12.0 g/dL (12.0-15.5) Hematocrit 37.6 % (36.0-47.0) Mean Corpuscular Volume 99 fL (79-100) Mean Corpuscular Hemoglobin 32 pg (25-35) Mean Corpuscular Hemoglobin Concent 32 g/dL (31-37) Red Cell Distribution Width 15.1 % (11.5-14.5) Platelet Count 416 x10^3/uL (140-400) Neutrophils (%) (Auto) 77 % (31-73) Lymphocytes (%) (Auto) 16 % (24-48) Monocytes (%) (Auto) 6 % (0-9) Eosinophils (%) (Auto) 0 % (0-3) Basophils (%) (Auto) 1 % (0-3) Neutrophils # (Auto) 8.2 x10^3/uL (1.8-7.7) Lymphocytes # (Auto) 1.7 x10^3/uL (1.0-4.8) Monocytes # (Auto) 0.6 x10^3/uL (0.0-1.1) Eosinophils # (Auto) 0.0 x10^3/uL (0.0-0.7) Basophils # (Auto) 0.1 x10^3/uL (0.0-0.2) Lactic Acid Level 1.1 mmol/L (0.4-2.0) Fibrinogen 483 mg/dL (200-440) D-Dimer (Nieves) ug/mlFEU (0.00-0.50) Sodium Level 140 mmol/L (136-145) Potassium Level 4.4 mmol/L (3.5-5.1) Chloride Level 109 mmol/L (98-107) Carbon Dioxide Level 15 mmol/L (21-32) Anion Gap 16 (6-14) Blood Urea Nitrogen 77 mg/dL (7-20) Creatinine 2.7 mg/dL (0.6-1.0) Estimated GFR (Cockcroft-Gault) 17.2 BUN/Creatinine Ratio 29 (6-20) Glucose Level 119 mg/dL (70-99) Calcium Level 9.5 mg/dL (8.5-10.1) Phosphorus Level 4.0 mg/dL (2.6-4.7) Magnesium Level 1.5 mg/dL (1.8-2.4) Total Bilirubin 0.3 mg/dL (0.2-1.0) Aspartate Amino Transf (AST/SGOT) 38 U/L (15-37) Alanine Aminotransferase (ALT/SGPT) 37 U/L (14-59) Alkaline Phosphatase 109 U/L (46-116) Troponin I Quantitative 0.053 ng/mL (0.000-0.055) KA-Ygr-Z-Type Natriuretic Peptide 59103 pg/mL (0-124) Total Protein 6.9 g/dL (6.4-8.2) Albumin 2.2 g/dL (3.4-5.0) Albumin/Globulin Ratio 0.5 (1.0-1.7) Thyroid Stimulating Hormone (TSH) 2.686 uIU/mL (0.358-3.74) Urine Collection Type U cath Urine Color Yellow Urine Clarity Turbid Urine pH 6.0 (<5.0-8.0) Urine Specific [place] 1.020 (1.000-1.030) Urine Protein 100 mg/dL (NEG-TRACE) Urine Glucose (UA) Negative mg/dL (NEG) Urine Ketones (Stick) Negative mg/dL (NEG) Urine Blood Small (NEG) Urine Nitrite Negative (NEG) Urine Bilirubin Small (NEG) Urine Urobilinogen Dipstick 0.2 mg/dL (0.2 mg/dL) Urine Leukocyte Esterase Large (NEG) Urine RBC Field obscured /HPF (0-2) Urine WBC Tntc /HPF (0-4) Urine Bacteria Many /HPF (0-FEW) Test 06/30/20 11:55 Lactate Dehydrogenase 190 U/L (81-234) Troponin I Quantitative 0.056 ng/mL (0.000-0.055) Procalcitonin 0.16 ng/mL (0.00-0.10) Laboratory Tests Test 06/30/20 04:15 06/30/20 04:19 06/30/20 05:10 06/30/20 05:30 White Blood Count 10.7 x10^3/uL (4.0-11.0) Red Blood Count 3.81 x10^6/uL (3.50-5.40) Hemoglobin 12.0 g/dL (12.0-15.5) Hematocrit 37.6 % (36.0-47.0) Mean Corpuscular Volume 99 fL (79-100) Mean Corpuscular Hemoglobin 32 pg (25-35) Mean Corpuscular Hemoglobin Concent 32 g/dL (31-37) Red Cell Distribution Width 15.1 % (11.5-14.5) Platelet Count 416 x10^3/uL (140-400) Neutrophils (%) (Auto) 77 % (31-73) Lymphocytes (%) (Auto) 16 % (24-48) Monocytes (%) (Auto) 6 % (0-9) Eosinophils (%) (Auto) 0 % (0-3) Basophils (%) (Auto) 1 % (0-3) Neutrophils # (Auto) 8.2 x10^3/uL (1.8-7.7) Lymphocytes # (Auto) 1.7 x10^3/uL (1.0-4.8) Monocytes # (Auto) 0.6 x10^3/uL (0.0-1.1) Eosinophils # (Auto) 0.0 x10^3/uL (0.0-0.7) Basophils # (Auto) 0.1 x10^3/uL (0.0-0.2) Lactic Acid Level 1.1 mmol/L (0.4-2.0) Fibrinogen 483 mg/dL (200-440) D-Dimer (Nieves) ug/mlFEU (0.00-0.50) Sodium Level 140 mmol/L (136-145) Potassium Level 4.4 mmol/L (3.5-5.1) Chloride Level 109 mmol/L (98-107) Carbon Dioxide Level 15 mmol/L (21-32) Anion Gap 16 (6-14) Blood Urea Nitrogen 77 mg/dL (7-20) Creatinine 2.7 mg/dL (0.6-1.0) Estimated GFR (Cockcroft-Gault) 17.2 BUN/Creatinine Ratio 29 (6-20) Glucose Level 119 mg/dL (70-99) Calcium Level 9.5 mg/dL (8.5-10.1) Phosphorus Level 4.0 mg/dL (2.6-4.7) Magnesium Level 1.5 mg/dL (1.8-2.4) Total Bilirubin 0.3 mg/dL (0.2-1.0) Aspartate Amino Transf (AST/SGOT) 38 U/L (15-37) Alanine Aminotransferase (ALT/SGPT) 37 U/L (14-59) Alkaline Phosphatase 109 U/L (46-116) Troponin I Quantitative 0.053 ng/mL (0.000-0.055) PM-Cwc-U-Type Natriuretic Peptide 00936 pg/mL (0-124) Total Protein 6.9 g/dL (6.4-8.2) Albumin 2.2 g/dL (3.4-5.0) Albumin/Globulin Ratio 0.5 (1.0-1.7) Thyroid Stimulating Hormone (TSH) 2.686 uIU/mL (0.358-3.74) Urine Collection Type U cath Urine Color Yellow Urine Clarity Turbid Urine pH 6.0 (<5.0-8.0) Urine Specific [place] 1.020 (1.000-1.030) Urine Protein 100 mg/dL (NEG-TRACE) Urine Glucose (UA) Negative mg/dL (NEG) Urine Ketones (Stick) Negative mg/dL (NEG) Urine Blood Small (NEG) Urine Nitrite Negative (NEG) Urine Bilirubin Small (NEG) Urine Urobilinogen Dipstick 0.2 mg/dL (0.2 mg/dL) Urine Leukocyte Esterase Large (NEG) Urine RBC Field obscured /HPF (0-2) Urine WBC Tntc /HPF (0-4) Urine Bacteria Many /HPF (0-FEW) Test 06/30/20 11:55 Lactate Dehydrogenase 190 U/L (81-234) Troponin I Quantitative 0.056 ng/mL (0.000-0.055) Procalcitonin 0.16 ng/mL (0.00-0.10) Assessment/Plan Assessment/Plan IMP NIC WITH CR OF 2.7-OLIGURIA AG MET ACIDOSIS CKD STAGE 4 WITH CR OF 1.7 AT BASELINE ACUTE HYPOXIC RESP FAILURE SEPSIS WITH SHOCK PROB DEHYDRATION HYPOMAGNESEMIA PNEUMONIA UTI PLAN REPLACE MAG HYDRATION PRESSORS ANTIBIOTICS SUPPLEMENTAL O2 CRITICALLY ILL PT MARGARET MOHAN MD Jun 30, 2020 16:54
--- NOTE | 2020-06-30 17:04 | NUR ---
SW following for discharge planning. Spoke with RN and reviewed chart. Pt admitted to the ICU instead of 6S. No further needs from this SW.
--- NOTE | 2020-06-30 17:29 | NUR ---
patient brought from ER at 1300. Dr. Leavitt, Dr. Dolores Montesinos, Dr. Chacon all notified of consults. Wounds pictured. Patient informed of plan of care and accepts plan. Will have PICC line placed. Once PICC line placed 900 cc bolus will be given and Magnesium.
[2020-06-30] MEDS ORDERED: MAGNESIUM SULFATE 1GM 100 ML IV ONE (17:30)
--- NOTE | 2020-06-30 21:39 | RAD ---
XR CHEST 1V, XR CHEST 1V History: Reason: PICC placement / Spl. Instructions: / History: Comparison: June 30, 2019. A 4:22 AM. Findings: Interval placement left PICC with initial image demonstrating the tip looped on itself within the reg ion of the mediastinum. Subsequent image obtained with tip projecting over the lower SVC. Small left pleural effusion. Patchy bibasilar opacities, left greater than right, unchanged. No pneum othorax. Unchanged heart size. Postop changes right axilla. Impression: 1. Interval placement left PICC with final image demonstrating the tip projecting over the lower SVC . 2. Small left pleural effusion with adjacent consolidations, unchanged. 3. Patchy right basilar opacities, unchanged. Electronically signed by: Cem Worrell DO (06/30/2020 9:37 PM) [facility]
[2020-07-01] VITALS (27 sets, daily range): BP systolic 85–142; BP diastolic 45–70
[2020-07-01] MEDS: NOREPINEPHRINE VIAL 8 MG in IV DEXTROSE 5% 250 ML IV PRN ×2 (02:59→13:35)
[2020-07-01] MEDS: PIPERACILLIN/TAZOBACTAM 2.25 GM in IV NORMAL SALINE 50ML 50 ML IV SCH ×3 (05:39→17:50)
[2020-07-01] MEDS: HEPARIN for SUB-Q USE 5,000 UNIT/ML VIAL. SQ SCH ×3 (05:40→21:11)
[2020-07-01 06:08] LABS: BASO # 0.1 x10^3/uL (0.0-0.2); BASO % 0 % (0-3); EOS # 0.1 x10^3/uL (0.0-0.7); EOS % 0 % (0-3); HEMATOCRIT 30.1 % (36.0-47.0); HEMOGLOBIN 9.7 g/dL (12.0-15.5); LYMPH # 1.6 x10^3/uL (1.0-4.8); LYMPH % 8 % (24-48); MEAN CORPUSCULAR HEMOGLOBIN 31 pg (25-35); MEAN CORPUSCULAR HGB CONC 32 g/dL (31-37); MEAN CORPUSCULAR VOLUME 98 fL (79-100); MONO % 5 % (0-9); NEUT % 86 % (31-73); PLATELET COUNT 311 x10^3/uL (140-400); RED BLOOD COUNT 3.08 x10^6/uL (3.50-5.40); RED CELL DISTRIBUTION WIDTH 15.2 % (11.5-14.5); WHITE BLOOD COUNT 19.8 x10^3/uL (4.0-11.0)
[2020-07-01 06:21] LABS: ALBUMIN 1.6 g/dL (3.4-5.0); ALBUMIN/GLOBULIN RATIO 0.4 (1.0-1.7); CALCIUM 8.1 mg/dL (8.5-10.1); CREATININE 2.1 mg/dL (0.6-1.0); POTASSIUM 3.5 mmol/L (3.5-5.1); TOTAL BILIRUBIN 0.6 mg/dL (0.2-1.0); TOTAL PROTEIN 5.5 g/dL (6.4-8.2)
[2020-07-01 06:23] LABS: PROTHROMBIN TIME PATIENT 17.1 SEC (11.7-14.0)
[2020-07-01] MEDS: IV NORMAL SALINE 1000ML BAG 1,000 ML IV SCH ×3 (06:51→20:20)
[2020-07-01] MEDS ORDERED: POTASSIUM CHLORIDE 20MEQ 100 ML IV ONE (07:30)
[2020-07-01] MEDS: FAMOTIDINE 20 MG/2 ML VIAL IVP SCH (07:35)
[2020-07-01] MEDS: ELECTROLYTE (ICU) PROTOCOL. MC SCH (07:37)
[2020-07-01 08:04] LABS: BASE EXCESS ABG -16 mmol/L (-3-3); HCO3 ABG 8 mmol/L (21-28); PO2 ABG 107 mmHg (65-108); SAT O2 ABG 97 % (92-99)
[2020-07-01 08:06] LABS: PCO2 ABG 16 mmHg (35-46)
[2020-07-01 08:07] LABS: FIO2 ABG 21/RA
--- NOTE | 2020-07-01 08:24 | PDOC ---
PULMONARY PROGRESS NOTES DATE: 07/01/20 TIME: 08:24 Subjective Patient remains on room air Continues on vasopressors Reports decreased appetite Vitals Vital Signs Date Time Temp Pulse Resp B/P (MAP) Pulse Ox O2 Delivery O2 Flow Rate FiO2 07/01/20 07:00 85 16 121/58 (79) 98 Room Air 07/01/20 04:00 99.3 99.3 ROS: No Nausea, No Chest Pain, No Abdominal Pain, No Increase Cough General: Alert, Oriented X4 Lungs: Clear Cardiovascular: S2 Abdomen: Soft Neuro Exam: Alert Extremities: No Edema Skin: Warm, Dry Labs Laboratory Tests Test 06/30/20 04:15 06/30/20 04:19 06/30/20 05:10 06/30/20 05:30 White Blood Count 10.7 x10^3/uL (4.0-11.0) Red Blood Count 3.81 x10^6/uL (3.50-5.40) Hemoglobin 12.0 g/dL (12.0-15.5) Hematocrit 37.6 % (36.0-47.0) Mean Corpuscular Volume 99 fL (79-100) Mean Corpuscular Hemoglobin 32 pg (25-35) Mean Corpuscular Hemoglobin Concent 32 g/dL (31-37) Red Cell Distribution Width 15.1 % (11.5-14.5) Platelet Count 416 x10^3/uL (140-400) Neutrophils (%) (Auto) 77 % (31-73) Lymphocytes (%) (Auto) 16 % (24-48) Monocytes (%) (Auto) 6 % (0-9) Eosinophils (%) (Auto) 0 % (0-3) Basophils (%) (Auto) 1 % (0-3) Neutrophils # (Auto) 8.2 x10^3/uL (1.8-7.7) Lymphocytes # (Auto) 1.7 x10^3/uL (1.0-4.8) Monocytes # (Auto) 0.6 x10^3/uL (0.0-1.1) Eosinophils # (Auto) 0.0 x10^3/uL (0.0-0.7) Basophils # (Auto) 0.1 x10^3/uL (0.0-0.2) Lactic Acid Level 1.1 mmol/L (0.4-2.0) Fibrinogen 483 mg/dL (200-440) D-Dimer (Nieves) ug/mlFEU (0.00-0.50) Sodium Level 140 mmol/L (136-145) Potassium Level 4.4 mmol/L (3.5-5.1) Chloride Level 109 mmol/L (98-107) Carbon Dioxide Level 15 mmol/L (21-32) Anion Gap 16 (6-14) Blood Urea Nitrogen 77 mg/dL (7-20) Creatinine 2.7 mg/dL (0.6-1.0) Estimated GFR (Cockcroft-Gault) 17.2 BUN/Creatinine Ratio 29 (6-20) Glucose Level 119 mg/dL (70-99) Calcium Level 9.5 mg/dL (8.5-10.1) Phosphorus Level 4.0 mg/dL (2.6-4.7) Magnesium Level 1.5 mg/dL (1.8-2.4) Total Bilirubin 0.3 mg/dL (0.2-1.0) Aspartate Amino Transf (AST/SGOT) 38 U/L (15-37) Alanine Aminotransferase (ALT/SGPT) 37 U/L (14-59) Alkaline Phosphatase 109 U/L (46-116) Troponin I Quantitative 0.053 ng/mL (0.000-0.055) PN-Kvt-R-Type Natriuretic Peptide 76154 pg/mL (0-124) Total Protein 6.9 g/dL (6.4-8.2) Albumin 2.2 g/dL (3.4-5.0) Albumin/Globulin Ratio 0.5 (1.0-1.7) Thyroid Stimulating Hormone (TSH) 2.686 uIU/mL (0.358-3.74) Urine Collection Type U cath Urine Color Yellow Urine Clarity Turbid Urine pH 6.0 (<5.0-8.0) Urine Specific [place] 1.020 (1.000-1.030) Urine Protein 100 mg/dL (NEG-TRACE) Urine Glucose (UA) Negative mg/dL (NEG) Urine Ketones (Stick) Negative mg/dL (NEG) Urine Blood Small (NEG) Urine Nitrite Negative (NEG) Urine Bilirubin Small (NEG) Urine Urobilinogen Dipstick 0.2 mg/dL (0.2 mg/dL) Urine Leukocyte Esterase Large (NEG) Urine RBC Field obscured /HPF (0-2) Urine WBC Tntc /HPF (0-4) Urine Bacteria Many /HPF (0-FEW) Test 06/30/20 11:55 07/01/20 05:50 07/01/20 06:48 Lactate Dehydrogenase 190 U/L (81-234) Troponin I Quantitative 0.056 ng/mL (0.000-0.055) Procalcitonin 0.16 ng/mL (0.00-0.10) White Blood Count 19.8 x10^3/uL (4.0-11.0) Red Blood Count 3.08 x10^6/uL (3.50-5.40) Hemoglobin 9.7 g/dL (12.0-15.5) Hematocrit 30.1 % (36.0-47.0) Mean Corpuscular Volume 98 fL (79-100) Mean Corpuscular Hemoglobin 31 pg (25-35) Mean Corpuscular Hemoglobin Concent 32 g/dL (31-37) Red Cell Distribution Width 15.2 % (11.5-14.5) Platelet Count 311 x10^3/uL (140-400) Neutrophils (%) (Auto) 86 % (31-73) Lymphocytes (%) (Auto) 8 % (24-48) Monocytes (%) (Auto) 5 % (0-9) Eosinophils (%) (Auto) 0 % (0-3) Basophils (%) (Auto) 0 % (0-3) Neutrophils # (Auto) 17.0 x10^3/uL (1.8-7.7) Lymphocytes # (Auto) 1.6 x10^3/uL (1.0-4.8) Monocytes # (Auto) 1.0 x10^3/uL (0.0-1.1) Eosinophils # (Auto) 0.1 x10^3/uL (0.0-0.7) Basophils # (Auto) 0.1 x10^3/uL (0.0-0.2) Prothrombin Time 17.1 SEC (11.7-14.0) Prothromb Time International Ratio 1.4 (0.8-1.1) Activated Partial Thromboplast Time 31 SEC (24-38) Sodium Level 145 mmol/L (136-145) Potassium Level 3.5 mmol/L (3.5-5.1) Chloride Level 116 mmol/L (98-107) Carbon Dioxide Level 12 mmol/L (21-32) Anion Gap 17 (6-14) Blood Urea Nitrogen 62 mg/dL (7-20) Creatinine 2.1 mg/dL (0.6-1.0) Estimated GFR (Cockcroft-Gault) 23.0 BUN/Creatinine Ratio 30 (6-20) Glucose Level 144 mg/dL (70-99) Calcium Level 8.1 mg/dL (8.5-10.1) Magnesium Level 1.8 mg/dL (1.8-2.4) Total Bilirubin 0.6 mg/dL (0.2-1.0) Aspartate Amino Transf (AST/SGOT) 18 U/L (15-37) Alanine Aminotransferase (ALT/SGPT) 25 U/L (14-59) Alkaline Phosphatase 95 U/L (46-116) Total Protein 5.5 g/dL (6.4-8.2) Albumin 1.6 g/dL (3.4-5.0) Albumin/Globulin Ratio 0.4 (1.0-1.7) O2 Saturation 97 % (92-99) Arterial Blood pH 7.32 (7.35-7.45) Arterial Blood pCO2 at Patient Temp 16 mmHg (35-46) Arterial Blood pO2 at Patient Temp 107 mmHg (65-108) Arterial Blood HCO3 8 mmol/L (21-28) Arterial Blood Base Excess -16 mmol/L (-3-3) FiO2 21/ra Laboratory Tests Test 06/30/20 11:55 07/01/20 05:50 07/01/20 06:48 Lactate Dehydrogenase 190 U/L (81-234) Troponin I Quantitative 0.056 ng/mL (0.000-0.055) Procalcitonin 0.16 ng/mL (0.00-0.10) White Blood Count 19.8 x10^3/uL (4.0-11.0) Red Blood Count 3.08 x10^6/uL (3.50-5.40) Hemoglobin 9.7 g/dL (12.0-15.5) Hematocrit 30.1 % (36.0-47.0) Mean Corpuscular Volume 98 fL (79-100) Mean Corpuscular Hemoglobin 31 pg (25-35) Mean Corpuscular Hemoglobin Concent 32 g/dL (31-37) Red Cell Distribution Width 15.2 % (11.5-14.5) Platelet Count 311 x10^3/uL (140-400) Neutrophils (%) (Auto) 86 % (31-73) Lymphocytes (%) (Auto) 8 % (24-48) Monocytes (%) (Auto) 5 % (0-9) Eosinophils (%) (Auto) 0 % (0-3) Basophils (%) (Auto) 0 % (0-3) Neutrophils # (Auto) 17.0 x10^3/uL (1.8-7.7) Lymphocytes # (Auto) 1.6 x10^3/uL (1.0-4.8) Monocytes # (Auto) 1.0 x10^3/uL (0.0-1.1) Eosinophils # (Auto) 0.1 x10^3/uL (0.0-0.7) Basophils # (Auto) 0.1 x10^3/uL (0.0-0.2) Prothrombin Time 17.1 SEC (11.7-14.0) Prothromb Time International Ratio 1.4 (0.8-1.1) Activated Partial Thromboplast Time 31 SEC (24-38) Sodium Level 145 mmol/L (136-145) Potassium Level 3.5 mmol/L (3.5-5.1) Chloride Level 116 mmol/L (98-107) Carbon Dioxide Level 12 mmol/L (21-32) Anion Gap 17 (6-14) Blood Urea Nitrogen 62 mg/dL (7-20) Creatinine 2.1 mg/dL (0.6-1.0) Estimated GFR (Cockcroft-Gault) 23.0 BUN/Creatinine Ratio 30 (6-20) Glucose Level 144 mg/dL (70-99) Calcium Level 8.1 mg/dL (8.5-10.1) Magnesium Level 1.8 mg/dL (1.8-2.4) Total Bilirubin 0.6 mg/dL (0.2-1.0) Aspartate Amino Transf (AST/SGOT) 18 U/L (15-37) Alanine Aminotransferase (ALT/SGPT) 25 U/L (14-59) Alkaline Phosphatase 95 U/L (46-116) Total Protein 5.5 g/dL (6.4-8.2) Albumin 1.6 g/dL (3.4-5.0) Albumin/Globulin Ratio 0.4 (1.0-1.7) O2 Saturation 97 % (92-99) Arterial Blood pH 7.32 (7.35-7.45) Arterial Blood pCO2 at Patient Temp 16 mmHg (35-46) Arterial Blood pO2 at Patient Temp 107 mmHg (65-108) Arterial Blood HCO3 8 mmol/L (21-28) Arterial Blood Base Excess -16 mmol/L (-3-3) FiO2 21/ra Medications Active Scripts Medications Dose Route/Sig Max Daily Dose Days Date Category Percocet 5-325 Mg Tablet (Oxycodone/Acetaminophen) 1 Each Tablet 1 Tab PO PRN Q4HRS PRN 6 09/17/18 Rx Tylenol (Acetaminophen) 325 Mg Tablet 650 Mg PO PRN Q4HRS PRN 30 09/17/18 Rx Ativan (Lorazepam) 0.5 Mg Tablet 0.5 Mg PO PRN Q4HRS PRN 15 09/17/18 Rx Furosemide 40 Mg Tablet 40 Mg PO DAILY 30 09/17/18 Rx Senna-Time S Tablet (Sennosides/Docusate Sodium) 1 Each Tablet 2 Tab PO PRN BID PRN 30 09/17/18 Rx Enoxaparin Sodium 30 Mg/0.3 Ml Disp.syrin 30 Mg SQ Q24H 14 09/17/18 Rx Calcium + Vitamin D Tablet (Calcium Carbonate/Vitamin D3) 1 Each Tablet 2 Each PO DAILY 09/14/18 Reported Multivitamins (Multivitamin) 1 Each Tablet 1 Tab PO DAILY 09/14/18 Reported Sodium Bicarbonate 650 Mg Tablet 2 Tab PO TID 09/14/18 Reported Levothyroxine Sodium 100 Mcg Tablet 100 Mcg PO DAILYAC 05/02/15 Reported Abilify (Aripiprazole) 10 Mg Tablet 2 Tab PO HS 05/01/15 Reported Wellbutrin Sr (Bupropion Hcl) 150 Mg Tablet.er 150 Mg PO DAILY 05/01/15 Reported Omeprazole 40 Mg Capsule.dr 40 Mg PO BID 10/13/13 Reported Gabapentin 600 Mg Tablet 1,200 Mg PO BID 10/13/13 Reported Mirtazapine 30 Mg Tablet 30 Mg PO HS 10/13/13 Reported Citalopram Hbr (Citalopram Hydrobromide) 40 Mg Tablet 20 Mg PO DAILY 10/13/13 Reported Comments CXR Impression: 1. Interval placement left PICC with final image demonstrating the tip projecting over the lower SVC. 2. Small left pleural effusion with adjacent consolidations, unchanged. 3. Patchy right basilar opacities, unchanged. Impression . IMPRESSION: 1. Acute hypoxic respiratory failure secondary to combination of pneumonia and septic shock. 2. Septic shock, likely source is pneumonia and a component of volume depletion as well. 3. Acute kidney injury, likely component of hypovolemia. 4. Severe protein-calorie malnutrition. 5. No significant tobacco history. Plan . RECOMMENDATIONS: Continue supplemental oxygen if needed, currently on room air Follow infectious disease recommendations in regards to antibiotics Start Marinol for appetite Await COVID-19 results, continue isolation precautions Follow speech recommendations, continue dysphagia diet Continue vasopressors as needed to keep MAP greater than 65, remains on Levophed Follow nephrology recommendations, worsening metabolic acidosis, plan for hemodialysis catheter and hemodialysis today DVT/GI prophylaxis Discussed with CAROLINA CARABALLO MD Jul 01, 2020 08:24
[2020-07-01] MEDS ORDERED: SODIUM BICARB ADULT 8.4% 50 MEQ/50 ML DISP.SYRIN. IV ONE (08:45)
[2020-07-01 10:21] LABS: % LYMPHS 10 % (24-48); % METAS 1 % (0-0); % SEGS 65 % (35-66)
[2020-07-01 10:22] LABS: % BANDS 21 % (0-9); % MONOS 3 % (0-10); PLT ESTIMATE ADEQUATE (ADEQUATE); TOXIC GRANULATION SLIGHT; TOXIC VACUOLATION PRESENT
[2020-07-01] MEDS ORDERED: ONDA4TAB7 PO (10:58)
[2020-07-01] MEDS ORDERED: ERGO500089 PO (10:58)
[2020-07-01] MEDS ORDERED: CLONAZEPAM1 MG PO (10:58)
[2020-07-01] MEDS ORDERED: FERR325T14 PO (10:58)
[2020-07-01] MEDS ORDERED: BUPR300T3 PO (10:58)
[2020-07-01] MEDS ORDERED: LEVO100C3 PO (10:58)
[2020-07-01] MEDS ORDERED: ARIP30TA4 PO (10:58)
[2020-07-01] MEDS ORDERED: SELE200C PO (10:58)
[2020-07-01] MEDS ORDERED: CARV6.2511 PO (10:58)
[2020-07-01] MEDS ORDERED: MIRT-8 PO (10:58)
[2020-07-01] MEDS ORDERED: LIPA1CAP8 PO (10:58)
--- NOTE | 2020-07-01 11:17 | PDOC ---
Renal-Progress Notes Subjective Notes Notes MORE AWAKE, NO NEW COMPLAINTS, TIRED History of Present Illness Hx of present illness STABLE Vitals Vitals Vital Signs Date Time Temp Pulse Resp B/P (MAP) Pulse Ox O2 Delivery O2 Flow Rate FiO2 07/01/20 11:00 90 21 112/55 (74) 99 Room Air 07/01/20 08:00 98.3 98.3 Weight Weight [ ] I.O. Intake and Output Intake and Output 07/01/20 07:00 Intake Total 3445.1 ml Output Total 1010 ml Balance 2435.1 ml Intake IV Total 3445.1 ml Output Urine Total 1010 ml Labs Labs Laboratory Tests Test 06/30/20 11:55 07/01/20 05:50 07/01/20 06:48 Lactate Dehydrogenase 190 U/L (81-234) Troponin I Quantitative 0.056 ng/mL (0.000-0.055) Procalcitonin 0.16 ng/mL (0.00-0.10) White Blood Count 19.8 x10^3/uL (4.0-11.0) Red Blood Count 3.08 x10^6/uL (3.50-5.40) Hemoglobin 9.7 g/dL (12.0-15.5) Hematocrit 30.1 % (36.0-47.0) Mean Corpuscular Volume 98 fL (79-100) Mean Corpuscular Hemoglobin 31 pg (25-35) Mean Corpuscular Hemoglobin Concent 32 g/dL (31-37) Red Cell Distribution Width 15.2 % (11.5-14.5) Platelet Count 311 x10^3/uL (140-400) Neutrophils (%) (Auto) 86 % (31-73) Lymphocytes (%) (Auto) 8 % (24-48) Monocytes (%) (Auto) 5 % (0-9) Eosinophils (%) (Auto) 0 % (0-3) Basophils (%) (Auto) 0 % (0-3) Neutrophils # (Auto) 17.0 x10^3/uL (1.8-7.7) Lymphocytes # (Auto) 1.6 x10^3/uL (1.0-4.8) Monocytes # (Auto) 1.0 x10^3/uL (0.0-1.1) Eosinophils # (Auto) 0.1 x10^3/uL (0.0-0.7) Basophils # (Auto) 0.1 x10^3/uL (0.0-0.2) Segmented Neutrophils % 65 % (35-66) Band Neutrophils % 21 % (0-9) Lymphocytes % 10 % (24-48) Monocytes % 3 % (0-10) Metamyelocytes % 1 % (0-0) Toxic Granulation Slight Toxic Vacuolation Present Platelet Estimate Adequate (ADEQUATE) Prothrombin Time 17.1 SEC (11.7-14.0) Prothromb Time International Ratio 1.4 (0.8-1.1) Activated Partial Thromboplast Time 31 SEC (24-38) Sodium Level 145 mmol/L (136-145) Potassium Level 3.5 mmol/L (3.5-5.1) Chloride Level 116 mmol/L (98-107) Carbon Dioxide Level 12 mmol/L (21-32) Anion Gap 17 (6-14) Blood Urea Nitrogen 62 mg/dL (7-20) Creatinine 2.1 mg/dL (0.6-1.0) Estimated GFR (Cockcroft-Gault) 23.0 BUN/Creatinine Ratio 30 (6-20) Glucose Level 144 mg/dL (70-99) Calcium Level 8.1 mg/dL (8.5-10.1) Magnesium Level 1.8 mg/dL (1.8-2.4) Total Bilirubin 0.6 mg/dL (0.2-1.0) Aspartate Amino Transf (AST/SGOT) 18 U/L (15-37) Alanine Aminotransferase (ALT/SGPT) 25 U/L (14-59) Alkaline Phosphatase 95 U/L (46-116) Total Protein 5.5 g/dL (6.4-8.2) Albumin 1.6 g/dL (3.4-5.0) Albumin/Globulin Ratio 0.4 (1.0-1.7) O2 Saturation 97 % (92-99) Arterial Blood pH 7.32 (7.35-7.45) Arterial Blood pCO2 at Patient Temp 16 mmHg (35-46) Arterial Blood pO2 at Patient Temp 107 mmHg (65-108) Arterial Blood HCO3 8 mmol/L (21-28) Arterial Blood Base Excess -16 mmol/L (-3-3) FiO2 21/ra Micro Micro Microbiology 06/30/20 Blood Culture - Preliminary, Resulted NO GROWTH AFTER 1 DAY Review of Systems Constitutional: yes: weakness, alert, oriented Ears/Nose/Throat: Yes: no symptom reported Eyes: Yes: no symptom reported Pulmonary: Yes no symptom reported Cardiovascular: Yes no symptom reported Gastrointestional: Yes: no symptom reported Genitourinary: Yes: no symptom reported Musculoskeletal: Yes: muscle stiffness Skin: Yes no symptom reported Psychiatric/Neurological: Yes: no symptom reported Endocrine: Yes: no symptom reported Physical Exam General Appearance: no apparent distress Skin: warm Respiratory: decreased breath sounds Heart: S1S2 Abdomen: soft, bowel sounds present Genitourinary: bladder flat Extremities: pulses present Neurology: alert, oriented Assessment Assessment IMP NIC WITH CR OF 2.1 AG MET ACIDOSIS WORSE WITH ACIDEMIA AND INADEQUATE RESP COMPENSATION CKD STAGE 4 WITH CR OF 1.7 AT BASELINE ACUTE HYPOXIC RESP FAILURE SEPSIS WITH SHOCK PROB DEHYDRATION HYPOMAGNESEMIA MALNUTRITION PNEUMONIA UTI PLAN TEMP HD LINE HD TODAY 40 HCO3 DIALYSATE NO UF - JUST CLEARANCE REPLACE MAG NEEDED HYDRATION PRESSORS ANTIBIOTICS SUPPLEMENTAL O2 CRITICALLY ILL PT D/W MARGARET MOREJON MD Jul 01, 2020 11:17
--- NOTE | 2020-07-01 11:25 | CONS ---
DATE OF CONSULTATION: 07/01/2020 REFERRING PHYSICIAN: Dr. Chapman. REASON FOR CONSULTATION: Sepsis, antibiotic management. HISTORY OF PRESENT ILLNESS: A 75-year-old female who was transferred from [facility] by EMS to [facility] for weakness. The patient had nausea, was shaky. The patient was unable to walk, usually uses a walker or wheelchair, unable to do her routine activity. She also had some shortness of breath and cough and COVID PUI has been sent. She was afebrile, no chills. She had sustained cuts on the lower leg from running into a wall while trying to get to the bathroom a couple of days ago. The patient had some headache this morning. Denies any nausea, vomiting, diarrhea or abdominal pain. Continues to feel weak. In the ER, her white count was normal. Lactate was negative. Creatinine was 2.7. BNP [place] [address], bicarbonate was 15. UA showed large leukocyte esterase. She remains on room air. Chest x-ray showed left lung consolidation with pleural effusion. The patient underwent a PICC line placement. Currently, she is on Zosyn. ID consultation has been requested for antibiotic management. Today, the patient feels a little better. REVIEW OF SYSTEMS: Negative except for above in the HPI. PAST MEDICAL HISTORY: Anxiety, depression, GERD, hypertension, hypothyroidism, renal disease, bowel obstruction, CKD, dysphagia, status post cholecystectomy, colectomy, gastric bypass, hysterectomy, tonsillectomy, colon perforation repair and adhesion repair. SOCIAL HISTORY: Nonsmoker. Alcohol rare, drug use none. FAMILY HISTORY: Noncontributory. PAST SURGICAL HISTORY: As above. CURRENT MEDICATIONS: Zosyn. Other medications reviewed in medication list. PHYSICAL EXAMINATION: VITAL SIGNS: Temperature 98.3, pulse 18, respiratory rate 119/62 and oxygen saturation 98% on room air. GENERAL: Alert, awake, weak-appearing female, lying in bed comfortably, in no acute distress, answers most of the questions. HEENT: Normocephalic, atraumatic, anicteric. NECK: Supple. LUNGS: Decreased breath sounds at the bases. HEART: S1, S2. ABDOMEN: Soft, nontender, bowel sounds present. EXTREMITIES: No edema, no cyanosis. DERMATOLOGIC: Mild skin breakdown on the right lower extremity, superficial, not infected. NEUROLOGIC: Generalized weakness, somewhat confused, alert, awake. MUSCULOSKELETAL: No joint swelling. Weakness present. LABORATORY DATA: WBC ____, hemoglobin 9.7, hematocrit 30.1, platelets 311. Sodium 140, potassium 4.4, chloride 109, bicarb 15, BUN 77, creatinine 0.7, lactate 1.1 and glucose 119. Magnesium 1.9, albumin 2.2. BNP 58860. Troponin normal. TSH normal. UA shows large leukocyte esterase. MICROBIOLOGY: Blood culture negative so far. RADIOGRAPHIC: Chest x-ray, left small pleural effusion with adjacent consolidation, interval PICC line placement. IMPRESSION: Leukocytosis, likely from , UTI Sepsis Pneumonia Acute kidney injury on chronic kidney disease Severe protein-calorie malnutrition Generalized debility COVID PUI High BNP Metabolic acidosis History of anxiety, depression Hypothyroidism History of bowel obstruction, status post multiple abdominal surgeries. RECOMMENDATIONS: 1. Continue Zosyn. 2. Follow up COVID results. 3. Follow up labs and cultures. 4. Continue supportive care. 5. Maintain aspiration precaution. Thank you for allowing me to participate in this patient's care. If you have any questions, do not hesitate to contact me. Discussed with nursing staff. CCD time 35 minutes. MITCH ASTORGA MD DR: GARY/chris JOB#: [id number] / [id number] NAHEED
[2020-07-01] MEDS ORDERED: DIALYSIS PATIENT. MC PRN (11:30)
[2020-07-01] MEDS ORDERED: IV NORMAL SALINE 1000ML BAG 1,000 ML IV PRN ×2 (11:30)
--- NOTE | 2020-07-01 11:30 | EKG ---
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 : 1945 Requested By: MARYANN DUBOIS Order Number: [id number] Reading MD: Measurements Intervals [place] Rate: 114 P: [place]: QRS: 71 QRSD: 74 T: 126 QT: 338 QTc: 469 Interpretive Statements IRREGULAR RHYTHM, NO P-WAVE FOUND ST & T ABNORMALITY, CONSIDER INFERIOR ISCHEMIA OR LEFT VENTRICULAR STRAIN T ABNORMALITY IN ANTEROSEPTAL LEADS ABNORMAL ECG RI6.02 Compared to ECG 06/30/2020 03:47:05 Possible ischemia now present T-wave abnormality now present Sinus rhythm no longer present Left ventricular hypertrophy no longer present Early repolarization no longer present Prolonged QT interval no longer present
[2020-07-01] MEDS ORDERED: LIDOCAINE WITH 8.4% SOD BICARB 3 ML DISP.SYRIN. ONE (11:44)
[2020-07-01] MEDS ORDERED: HEPARIN for IV BOLUS 10,000 UNIT/10 ML VIAL. ONE (12:10)
[2020-07-01] MEDS ORDERED: oxyCODONE/APAP 5/325 1 TAB TABLET PO PRN (12:30)
[2020-07-01] MEDS ORDERED: SENNOSIDES/DOCUSATE 8.6/50MG TABLET. PO PRN (12:30)
[2020-07-01] MEDS ORDERED: ONDANSETRON ODT 4 MG TAB.RAPDIS. PO PRN (12:30)
[2020-07-01] MEDS ORDERED: ACETAMINOPHEN 325 MG TABLET. PO PRN (12:30)
[2020-07-01] MEDS ORDERED: LIDOCAINE WITH 8.4% SOD BICARB 3 ML DISP.SYRIN. INJ ONE (12:30)
[2020-07-01] MEDS ORDERED: LORazepam 0.5 MG TABLET PO PRN (12:30)
--- NOTE | 2020-07-01 13:01 | RAD ---
Procedure: Temporary hemodialysis catheter placement at the bedside. Clinical Indication: Adult female requiring hemodialysis Sedation: Local anesthesia only Antibiotics: None Fluoro Time: Not applicable Contrast: None Sterility: All elements of maximal sterile barrier technique including the use of a cap, mask, sterile gown, sterile gloves, large sterile sheet, appropriate hand hygiene, and 2% chlorhexidine for cutaneous antisepsis (or acceptable alternative antiseptic per current guidelines) were followed for this procedure. Consent: The procedure was explained in its entirety to the patient or the patients designated account representative by a member of the treatment team, including a discussion of the risks, benefits and commonly accepted alternatives to the procedure, as well as the expected consequences of no therapy whatsoever. Discussion of the risks included, but was not limited to, those that are most frequent and those that are rare but possibly severe or life-threatening, as well as the possibility of unforeseen complications. Technique and Findings: Following informed consent, the patient was prepped and draped in the usual sterile fashion. Ultrasound interrogation of the right neck revealed patency and compressibility of the right internal jugular vein. A 21-gauge micropuncture needle was used to gain access to this vein after 1% Lidocaine was used to achieve local anesthesia. A hardcopy ultrasound image was recorded. The needle was exchanged over a wire for serial dilators followed by a 20 cm Schon temporary hemodialysis catheter which was deployed in the expected location of the mid right atrium. The catheter flow rates were assessed manually and found to be excellent. The catheter was then flushed, packed with Heparin, capped, and sutured to the skin. Chest x-ray was then obtained to assess line position. Complications: No immediate Impression: 1. Ultrasound guided placement of a temporary hemodialysis catheter which exhibits excellent manual flow rates as described.
--- NOTE | 2020-07-01 13:04 | PDOC ---
[facility] PROGRESS NOTE Date of Service DOS: DATE: 07/01/20 TIME: 13:02 Chief Complaint Chief Complaint SEVERE SEPSIS Left lung base airspace consolidative process as pneumonia. Small left pleural effusion. suspect aspiration and COVID 19 UTI NIC, HYPOPERFUSION, SHOCK PUI History of Present Illness History of Present Illness 07/01/2020 Patient seen and examined in the ICU Discussed with RN Chart reviewed She is on IV Levophed and maintenance IV She is going for hemodialysis catheter today as she is having difficulty with acid-base balance Trying to go in and out of A. fib cardiology is consulted She remains quite ill Vitals/I&O Vitals/I&O: Vital Signs Date Time Temp Pulse Resp B/P (MAP) Pulse Ox O2 Delivery O2 Flow Rate FiO2 07/01/20 12:00 98.4 105 20 120/70 (87) 99 Room Air 98.4 I & O 06/30/20 06/30/20 07/01/20 15:00 23:00 07:00 Intake Total 850 ml 617.5 ml 1977.6 ml Output Total 410 ml 250 ml 350 ml Balance 440 ml 367.5 ml 1627.6 ml Physical Exam General: mild distress Heart: Regular rate Lungs: Clear Abdomen: Normal bowel sounds, Soft, No tenderness Extremities: No cyanosis Skin: No breakdown Labs Labs: Laboratory Tests Test 07/01/20 05:50 07/01/20 06:48 White Blood Count 19.8 x10^3/uL (4.0-11.0) Red Blood Count 3.08 x10^6/uL (3.50-5.40) Hemoglobin 9.7 g/dL (12.0-15.5) Hematocrit 30.1 % (36.0-47.0) Mean Corpuscular Volume 98 fL (79-100) Mean Corpuscular Hemoglobin 31 pg (25-35) Mean Corpuscular Hemoglobin Concent 32 g/dL (31-37) Red Cell Distribution Width 15.2 % (11.5-14.5) Platelet Count 311 x10^3/uL (140-400) Neutrophils (%) (Auto) 86 % (31-73) Lymphocytes (%) (Auto) 8 % (24-48) Monocytes (%) (Auto) 5 % (0-9) Eosinophils (%) (Auto) 0 % (0-3) Basophils (%) (Auto) 0 % (0-3) Neutrophils # (Auto) 17.0 x10^3/uL (1.8-7.7) Lymphocytes # (Auto) 1.6 x10^3/uL (1.0-4.8) Monocytes # (Auto) 1.0 x10^3/uL (0.0-1.1) Eosinophils # (Auto) 0.1 x10^3/uL (0.0-0.7) Basophils # (Auto) 0.1 x10^3/uL (0.0-0.2) Segmented Neutrophils % 65 % (35-66) Band Neutrophils % 21 % (0-9) Lymphocytes % 10 % (24-48) Monocytes % 3 % (0-10) Metamyelocytes % 1 % (0-0) Toxic Granulation Slight Toxic Vacuolation Present Platelet Estimate Adequate (ADEQUATE) Prothrombin Time 17.1 SEC (11.7-14.0) Prothromb Time International Ratio 1.4 (0.8-1.1) Activated Partial Thromboplast Time 31 SEC (24-38) Sodium Level 145 mmol/L (136-145) Potassium Level 3.5 mmol/L (3.5-5.1) Chloride Level 116 mmol/L (98-107) Carbon Dioxide Level 12 mmol/L (21-32) Anion Gap 17 (6-14) Blood Urea Nitrogen 62 mg/dL (7-20) Creatinine 2.1 mg/dL (0.6-1.0) Estimated GFR (Cockcroft-Gault) 23.0 BUN/Creatinine Ratio 30 (6-20) Glucose Level 144 mg/dL (70-99) Calcium Level 8.1 mg/dL (8.5-10.1) Magnesium Level 1.8 mg/dL (1.8-2.4) Total Bilirubin 0.6 mg/dL (0.2-1.0) Aspartate Amino Transf (AST/SGOT) 18 U/L (15-37) Alanine Aminotransferase (ALT/SGPT) 25 U/L (14-59) Alkaline Phosphatase 95 U/L (46-116) Total Protein 5.5 g/dL (6.4-8.2) Albumin 1.6 g/dL (3.4-5.0) Albumin/Globulin Ratio 0.4 (1.0-1.7) O2 Saturation 97 % (92-99) Arterial Blood pH 7.32 (7.35-7.45) Arterial Blood pCO2 at Patient Temp 16 mmHg (35-46) Arterial Blood pO2 at Patient Temp 107 mmHg (65-108) Arterial Blood HCO3 8 mmol/L (21-28) Arterial Blood Base Excess -16 mmol/L (-3-3) FiO2 21/ra Assessment and Plan Assessmemt and Plan Problems Medical Problems: (1) HCAP (healthcare-associated pneumonia) Status: Acute (2) Weakness Status: Acute SEVERE SEPSIS Left lung base airspace consolidative process as pneumonia. Small left pleural effusion. suspect aspiration and COVID 19 UTI NIC, HYPOPERFUSION, SHOCK PUI Plan ICU monitoring Going for dialysis catheter placement today IV antibiotic Pulmonary and nephrology are following GI prophylaxis Home meds DVT prophylaxis Full code Await blood cultures Long-term prognosis guarded Trend labs Appreciate subspecialist input Comment Review of Relevant I have reviewed the following items isreal (where applicable) has been applied. Medications: Current Medications Medications (Trade) Dose Ordered Sig/Sumit Route PRN Reason Start Time Stop Time Status Last Admin Dose Admin Info ([facility]cu Electrolyte Protocol) 1 ea DAILY MC 07/01/20 09:00 07/01/20 07:37 Heparin Sodium (Porcine) (Heparin Sodium) 5,000 unit Q8HRS SQ 06/30/20 14:00 07/01/20 05:40 Magnesium Sulfate/ Dextrose 100 ml @ 100 mls/hr 1X ONCE IV 06/30/20 17:30 06/30/20 18:29 DC 06/30/20 23:18 Potassium Chloride/Water 100 ml @ 100 mls/hr 1X ONCE IV 07/01/20 07:30 07/01/20 08:29 DC 07/01/20 07:43 Sodium Bicarbonate (Sodium Bicarb Adult 8.4% Syr) 100 meq 1X ONCE IV 07/01/20 08:45 07/01/20 08:49 DC 07/01/20 08:58 Lidocaine HCl (Buffered Lidocaine 1%) 6 ml 1X ONCE INJ 07/01/20 12:30 07/01/20 12:32 DC 07/01/20 12:49 Heparin Sodium (Porcine) (Heparin Sodium) 2,500 unit 1X ONCE INT CAT 07/01/20 12:30 07/01/20 12:32 DC 07/01/20 12:49 Justifications for Admission General Conditions Poss tachycardia?: Yes Justification for admission: Patient has tachycardia (> 100 beats per minute) which is not readily corrected by appropriate treatment within 12 to 24 hours. severe sepsis Other Justification MARYANN DUBOIS III, DO Jul 01, 2020 13:04
--- NOTE | 2020-07-01 13:24 | PDOC2 ---
VITA VASQUEZ LINEN AIDE 07/01/20 1324: CARDIAC CONSULT DATE OF CONSULT Date of Consult DATE: 07/01/20 TIME: 13:22 REASON FOR CONSULT Reason for Consult: AFIB/frequent PACs REFERRING PHYSICIAN Referring Physician: Sj SOURCE Source: Chart review, Patient HISTORY OF PRESENT ILLNESS HISTORY OF PRESENT ILLNESS This is a 75 yo female admitted for complains of increased weakness and nausea. She was recently discharged from rehab and lives . Also has SOA and nonproductive cough. Presently not SOA and currently receiving hemodialysis. Significant bowel surgery in the past but no prior hx fo VTE, CVA nor CAD. Consult is for AFIB which is new for her noted initially yesterday paroxysmal with bursts of RVR. Currently she is on atrial flutter with variable conduction 90-120s while having dialysis. Denies any chest pain. PAST MEDICAL HISTORY Cardiovascular: HTN Pulmonary: No pertinent hx CENTRAL NERVOUS SYSTEM: Other (No pertinent history) GI: GERD, Other (bowel obstruction) Heme/Onc: Anemia NOS Psych: Anxiety, Depression Musculoskeletal: Osteoarthritis, Other (chronic debility) Rheumatologic: No pertinent hx Infectious disease: No pertinent hx ENT: Allergic Rhinitis Renal/: Chronic renal insuff Endocrine: Hypothyroidism Dermatology: No pertinent hx PAST SURGICAL HISTORY Past Surgical History: Cholecystectomy, Colon Resection, Other (gastric bypass) FAMILY HISTORY Family History noncontributory to CV SOCIAL HISTORY Smoke: No ALCOHOL: none Drugs: None Lives: with Family CURRENT MEDICATIONS CURRENT MEDICATIONS Current Medications Medications (Trade) Dose Ordered Sig/Sumit Route PRN Reason Start Time Stop Time Status Last Admin Dose Admin Info (Icu Electrolyte Protocol) 1 ea DAILY MC 07/01/20 09:00 07/01/20 07:37 Heparin Sodium (Porcine) (Heparin Sodium) 5,000 unit Q8HRS SQ 06/30/20 14:00 07/01/20 05:40 Magnesium Sulfate/ Dextrose 100 ml @ 100 mls/hr 1X ONCE IV 06/30/20 17:30 06/30/20 18:29 DC 06/30/20 23:18 Potassium Chloride/Water 100 ml @ 100 mls/hr 1X ONCE IV 07/01/20 07:30 07/01/20 08:29 DC 07/01/20 07:43 Sodium Bicarbonate (Sodium Bicarb Adult 8.4% Syr) 100 meq 1X ONCE IV 07/01/20 08:45 07/01/20 08:49 DC 07/01/20 08:58 Lidocaine HCl (Buffered Lidocaine 1%) 6 ml 1X ONCE INJ 07/01/20 12:30 07/01/20 12:32 DC 07/01/20 12:49 Heparin Sodium (Porcine) (Heparin Sodium) 2,500 unit 1X ONCE INT CAT 07/01/20 12:30 07/01/20 12:32 DC 07/01/20 12:49 ALLERGIES ALLERGIES: Coded Allergies: hydromorphone (Verified Allergy, Intermediate, Palpitations, 10/14/13) rosuvastatin (Verified Allergy, Mild, Nausea and Vomiting, 10/14/13) ROS Review of System 14 point ROS evaluated with pertinent positives noted per HPI PHYSICAL EXAM General: Alert, Oriented X3, Cooperative, No acute distress, Other (cachectic) HEENT: Atraumatic, Mucous membr. moist/pink Lungs: Other (diminished bases) Heart: No murmurs, Other (AFIB) Abdomen: Soft, Other (scaphoid abdomen) Extremities: No cyanosis, No edema Skin: No significant lesion Neuro: Normal speech, Sensation intact Psych/Mental Status: Mental status NL, Mood NL MUSCULOSKELETAL: Osteoarthritic changes both hands VITALS/I&O VITALS/I&O: Vital Signs Date Time Temp Pulse Resp B/P (MAP) Pulse Ox O2 Delivery O2 Flow Rate FiO2 07/01/20 13:00 111 20 142/62 (88) 99 Room Air 07/01/20 12:00 98.4 98.4 I & O 06/30/20 06/30/20 07/01/20 15:00 23:00 07:00 Intake Total 850 ml 617.5 ml 1977.6 ml Output Total 410 ml 250 ml 350 ml Balance 440 ml 367.5 ml 1627.6 ml LABS Lab: Laboratory Tests Test 07/01/20 05:50 07/01/20 06:48 White Blood Count 19.8 x10^3/uL (4.0-11.0) H Red Blood Count 3.08 x10^6/uL (3.50-5.40) L Hemoglobin 9.7 g/dL (12.0-15.5) L Hematocrit 30.1 % (36.0-47.0) L Mean Corpuscular Volume 98 fL (79-100) Mean Corpuscular Hemoglobin 31 pg (25-35) Mean Corpuscular Hemoglobin Concent 32 g/dL (31-37) Red Cell Distribution Width 15.2 % (11.5-14.5) H Platelet Count 311 x10^3/uL (140-400) Neutrophils (%) (Auto) 86 % (31-73) H Lymphocytes (%) (Auto) 8 % (24-48) L Monocytes (%) (Auto) 5 % (0-9) Eosinophils (%) (Auto) 0 % (0-3) Basophils (%) (Auto) 0 % (0-3) Neutrophils # (Auto) 17.0 x10^3/uL (1.8-7.7) H Lymphocytes # (Auto) 1.6 x10^3/uL (1.0-4.8) Monocytes # (Auto) 1.0 x10^3/uL (0.0-1.1) Eosinophils # (Auto) 0.1 x10^3/uL (0.0-0.7) Basophils # (Auto) 0.1 x10^3/uL (0.0-0.2) Segmented Neutrophils % 65 % (35-66) Band Neutrophils % 21 % (0-9) H Lymphocytes % 10 % (24-48) L Monocytes % 3 % (0-10) Metamyelocytes % 1 % (0-0) H Toxic Granulation Slight Toxic Vacuolation Present Platelet Estimate Adequate (ADEQUATE) Prothrombin Time 17.1 SEC (11.7-14.0) H Prothrombin Time INR 1.4 (0.8-1.1) H Activated Partial Thromboplast Time 31 SEC (24-38) Sodium Level 145 mmol/L (136-145) Potassium Level 3.5 mmol/L (3.5-5.1) Chloride Level 116 mmol/L (98-107) H Carbon Dioxide Level 12 mmol/L (21-32) L Anion Gap 17 (6-14) H Blood Urea Nitrogen 62 mg/dL (7-20) H Creatinine 2.1 mg/dL (0.6-1.0) H Estimated GFR (Cockcroft-Gault) 23.0 BUN/Creatinine Ratio 30 (6-20) H Glucose Level 144 mg/dL (70-99) H Calcium Level 8.1 mg/dL (8.5-10.1) L Magnesium Level 1.8 mg/dL (1.8-2.4) Total Bilirubin 0.6 mg/dL (0.2-1.0) Aspartate Amino Transferase (AST) 18 U/L (15-37) Alanine Aminotransferase (ALT) 25 U/L (14-59) Alkaline Phosphatase 95 U/L (46-116) Total Protein 5.5 g/dL (6.4-8.2) L Albumin 1.6 g/dL (3.4-5.0) L Albumin/Globulin Ratio 0.4 (1.0-1.7) L O2 Saturation 97 % (92-99) Arterial Blood pH 7.32 (7.35-7.45) L Arterial Blood pCO2 at Patient Temp 16 mmHg (35-46) *L Arterial Blood pO2 at Patient Temp 107 mmHg (65-108) Arterial Blood HCO3 8 mmol/L (21-28) L Arterial Blood Base Excess -16 mmol/L (-3-3) L FiO2 21/ra Laboratory Tests 07/01/20 05:50 Laboratory Tests 07/01/20 05:50 ASSESSMENT/PLAN ASSESSMENT/PLAN 1. Sepsis/shock with HCAP and UTI. Covid negative 2. NIC on CKD: unclear baseline. receiving HD 3. Weakness/deconditioning/debility 4. Suspect acute diastolic CHF: induced by sepsis and severe NIC 5. PAFIB with RVR: new finding. presently on atrial flutter 90-120 with variable conduction 6. Mild troponin elevation: type 2 peaked at 0.05 with above culprits 7. Hypothyroidism: TSH on goal 8. 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 Normocytic anemia Recommendations 1. Antibiotics per ID 2. Fluid off loading per HD 3. Still needing levophed. Will place back on BB once BP is consistently adequate 4. Dig IV x1 after HD 5. ECASA 81 mg. Monitor rhythm. 6. Obtain TTE MARY FULLER MD 07/01/20 1700: CARDIAC CONSULT ASSESSMENT/PLAN ASSESSMENT/PLAN Patient seen and examined. Agree with WINERY WORKER's assessment and plan. Atrial fibrillation with RVR, newly diagnosed, rate better controlled but still elevated. Agree with digoxin for better rate control. Continue fluid removal with hemodialysis for acute on chronic diastolic heart failure. Nephrology following. Slight troponin elevation probably demand ischemia. Covid negative. 2D echo shows normal LV systolic function without any wall motion abnormalities. Ischemic work-up could be considered as an outpatient.. Patient continues to need pressor support for sepsis. Continue management of pneumonia/UTI/sepsis per pulmonary and ID teams. Thank you for your consultation. VITA VASQUEZ APRN Jul 01, 2020 13:24 MARY FULLER MD Jul 01, 2020 17:00
[2020-07-01] MEDS ORDERED: SODIUM BICARBONATE 650 MG TABLET. PO SCH (14:00)
--- NOTE | 2020-07-01 14:55 | RAD ---
XR CHEST 1V INDICATION: Reason: TEMP HD CATHETER PLACEMENT / Spl. Instructions: / History: . COMPARISON STUDY: 07/01/2020. FINDINGS: Rotation to the left. Life Support Devices: New right IJ dual-lumen catheter with tip overlying the upper right atrium. Lungs: Normal lung volume. Stable left basilar opacities. Pleura: Stable small left pleural effusion. No pneumothorax. Heart and Mediastinum: Stable cardiomediastinal silhouette and great vessels. IMPRESSION: 1. New right IJ dual-lumen catheter. No pneumothorax. Stable left PICC. 2. Stable left basilar opacities and small left pleural effusion. Electronically signed by: Yovani Terry MD (07/01/2020 2:53 PM) [id number]
[2020-07-01] MEDS ORDERED: DIGOXIN IV 500 MCG/2 ML AMPUL. IV ONE (16:00)
--- NOTE | 2020-07-01 16:05 | NUR ---
Wound Care Pt on dialysis, will assess tomorrow
[2020-07-01] MEDS: PANTOPRAZOLE 40 MG TABLET.DR. PO SCH (16:30)
--- NOTE | 2020-07-01 16:39 | CARD ---
MR#: [id number] Date of Study: 07/01/2020 Ordering Physician: VITA VASQUEZ, Referring Physician: VITA VASQUEZ Tech: Gabriella Carrizales [facility] APPROVED REPORT EXAM: Two-dimensional and M-mode echocardiogram with Doppler and color Doppler. Other Information Quality : Good Rhythm : Atrial Fibrillation INDICATION Atrial Fibrillation 2D DIMENSIONS RVDd2.2 (2.9-3.5cm)Left Atrium(2D)2.7 (1.6-4.0cm) IVSd1.2 (0.7-1.1cm)Aortic Root(2D)2.7 (2.0-3.7cm) LVDd3.7 (3.9-5.9cm)LVOT Diameter2.0 (1.8-2.4cm) PWd0.8 (0.7-1.1cm)LVDs2.2 (2.5-4.0cm) FS (%) 40.2 %SV41.6 ml LVEF(%)60.0 (>50%) Aortic Valve AoV Peak Antoine.214.5cm/sAoV VTI25.1cm AO Peak GR.18.4mmHgLVOT VTI 18.63cm AO Mean GR.9mmHgAVA (VTI)2.40cm2 AI P 1/2 [id number] Mitral Valve MV E Iwahkpng70.3cm/sMV DECEL PCPK6dh TDI Lateral E' P. V4.51cm/sMedial E' P. V9.20cm/s E/Lateral E'14.3E/Medial E'7.0 Tricuspid Valve TR P. [id number]/sRAP [id number] TR Peak Gr.[id number] LEFT VENTRICLE The left ventricle is normal size. There is moderate to severe concentric left ventricular hypertroph y. The left ventricular systolic function is normal and the ejection fraction is within normal range. The Ejection Fraction is 60-65%. There is normal LV segmental wall motion. Tissue Doppler imaging re veals severe left ventricular diastolic dysfunction. RIGHT VENTRICLE The right ventricle is normal size. The right ventricular systolic function is normal. ATRIA The left atrium size is normal. The right atrium size is normal. The interatrial septum is intact wit h no evidence for an atrial septal defect or patent foramen ovale as noted on 2-D or Doppler imaging. AORTIC VALVE The aortic valve is calcified but opens well. Doppler and Color Flow revealed mild aortic regurgitati on. There is no significant aortic valvular stenosis. MITRAL VALVE The mitral valve is calcified but opens well. There is no evidence of mitral valve prolapse. There is no mitral valve stenosis. Doppler and Color-flow revealed trace to mild mitral regurgitation. TRICUSPID VALVE The tricuspid valve is normal in structure and function. Doppler and Color Flow revealed mild tricusp id regurgitation. The PA pressure was estimated at 30 mmHg. There is no tricuspid valve stenosis. PULMONIC VALVE The pulmonic valve is not well visualized. Doppler and Color Flow revealed trace pulmonic valvular re gurgitation. There is no pulmonic valvular stenosis. GREAT VESSELS The aortic root is normal in size. The ascending aorta is not well seen. The IVC is normal in size an d collapses >50% with inspiration. PERICARDIAL EFFUSION There is no evidence of significant pericardial effusion. Critical Notification Critical Value: No <Conclusion> The left ventricular systolic function is normal and the ejection fraction is within normal range. Th e Ejection Fraction is 60-65%. There is normal LV segmental wall motion. There is moderate to severe concentric left ventricular hypertrophy. Doppler and Color Flow revealed mild aortic regurgitation. Signed by : Mekhi Murillo, Electronically Approved : 07/01/2020 16:38:52
[2020-07-01] MEDS: LIPASE/PROTEAS/AMYLAS 10/32/42 CAPSULE.DR. PO SCH (16:41)
[2020-07-01] MEDS: LEVOTHYROXINE 100 MCG TABLET PO SCH (16:41)
[2020-07-01] MEDS: CITALOPRAM 20 MG TABLET. PO SCH (16:41)
[2020-07-01] MEDS: clonazePAM 0.5 MG TABLET PO SCH ×2 (16:42→21:00)
[2020-07-01] MEDS: CALCIUM CARB/VIT D3 500/200 TABLET. PO SCH (16:42)
[2020-07-01] MEDS: MULTIVITAMIN with MINERAL TABLET. PO SCH (16:42)
[2020-07-01] MEDS: DRONABINOL 2.5 MG CAPSULE. PO SCH (16:42)
[2020-07-01] MEDS: buPROPion XL 150 MG TAB.ER.24H. PO SCH (16:42)
[2020-07-01] MEDS: FERROUS SULFATE 325 MG TABLET. PO SCH (16:45)
[2020-07-01] MEDS: CARVEDILOL 6.25 MG TABLET. PO SCH (16:47)
[2020-07-01] MEDS: ARIPiprazole 5 MG TABLET PO SCH (16:51)
[2020-07-01] MEDS: GABAPENTIN 400 MG CAPSULE. PO SCH (21:10)
[2020-07-01] MEDS: MIRTAZAPINE 15 MG TABLET PO SCH (21:10)
[2020-07-02] VITALS (25 sets, daily range): BP systolic 90–149; BP diastolic 43–68
[2020-07-02] MEDS: PIPERACILLIN/TAZOBACTAM 2.25 GM in IV NORMAL SALINE 50ML 50 ML IV SCH ×4 (00:02→17:57)
--- NOTE | 2020-07-02 04:58 | RAD ---
EXAM: AP View of the chest DATE: 07/02/2020 3:26 AM INDICATION: Reason: resp. failure/PNA 112 / Spl. Instructions: / History: COMPARISON: 07/01/2020 06/30/2020 FINDINGS: Right IJ vascular catheter tip projects over the right atrium. Left upper extremity PICC tip projects over the distal SVC. Heart is not enlarged. Aorta is tortuous without scarring calcifications. Small left pleural effusion . Left lung base opacities. Patchy opacity left midlung are also seen. No pneumothorax. IMPRESSION: 1. Left lung base and left hilar airspace opacities likely consolidative process as pneumonia. 2. Support lines/tubes as above. Electronically signed by: Isra Luna MD (07/02/2020 4:55 AM) ANGELA
[2020-07-02] MEDS: LEVOTHYROXINE 100 MCG TABLET PO SCH (05:48)
[2020-07-02] MEDS: IV NORMAL SALINE 1000ML BAG 1,000 ML IV SCH ×2 (05:49→11:36)
[2020-07-02] MEDS: HEPARIN for SUB-Q USE 5,000 UNIT/ML VIAL. SQ SCH ×3 (05:56→21:13)
[2020-07-02 06:35] LABS: CALCIUM 7.7 mg/dL (8.5-10.1); CREATININE 1.1 mg/dL (0.6-1.0); GFR 48.6; MAGNESIUM 1.6 mg/dL (1.8-2.4); PHOSPHORUS 1.4 mg/dL (2.6-4.7); POTASSIUM 3.1 mmol/L (3.5-5.1)
[2020-07-02] MEDS ORDERED: MAGNESIUM SULFATE 4GM 100 ML IV ONE (07:15)
[2020-07-02] MEDS: POTASSIUM CHLORIDE 20MEQ 100 ML IV SCH ×2 (07:47→09:03)
[2020-07-02] MEDS: CARVEDILOL 6.25 MG TABLET. PO SCH ×2 (08:00→16:37)
[2020-07-02] MEDS: ELECTROLYTE (ICU) PROTOCOL. MC SCH (08:31)
--- NOTE | 2020-07-02 08:35 | PDOC ---
Infectious Disease Note Subjective: Subjective pt is hungry feels better no complaints been weaned off levophed Vital Signs: Vital Signs Vital Signs Date Time Temp Pulse Resp B/P (MAP) Pulse Ox O2 Delivery O2 Flow Rate FiO2 07/02/20 08:00 98.8 76 18 111/65 (80) 97 Room Air 98.8 Physical Exam: PHYSICAL EXAM GENERAL: Alert, awake, weak-appearing female, lying in bed comfortably, in no acute distress, answers most of the questions. HEENT: Normocephalic, atraumatic, anicteric. NECK: Supple. LUNGS: Decreased breath sounds at the bases. HEART: S1, S2. ABDOMEN: Soft, nontender, bowel sounds present. EXTREMITIES: No edema, no cyanosis. DERMATOLOGIC: Mild skin breakdown on the right lower extremity, superficial, not infected. NEUROLOGIC: Generalized weakness, somewhat confused, alert, awake. MUSCULOSKELETAL: No joint swelling. Weakness present. Medications: Inpatient Meds: Current Medications Medications (Trade) Dose Ordered Sig/Sumit Start Time Stop Time Status Last Admin Dose Admin Acetaminophen (Tylenol) 650 mg PRN Q4HRS PRN 07/01/20 12:30 Amylase/Lipase/ Protease (Zenpep 10,000) 1 cap TIDWMEALS 07/01/20 17:00 07/01/20 16:41 1 CAP Aripiprazole (Abilify) 30 mg DAILY 07/01/20 13:00 07/01/20 16:51 30 MG Aspirin (Ecotrin) 81 mg DAILYWBKFT 07/02/20 08:00 Bisacodyl (Dulcolax Supp) 10 mg PRN DAILY PRN 06/30/20 10:45 Bupropion HCl (Wellbutrin Xl) 300 mg DAILY 07/01/20 13:00 07/01/20 16:42 300 MG Calcium/Vitamin D (Oscal D 500mg/ 200uts) 1 tab BIDWMEALS 07/01/20 17:00 07/01/20 16:42 1 TAB Carvedilol (Coreg) 6.25 mg BIDWMEALS 07/01/20 17:00 Citalopram Hydrobromide (CeleXA) 20 mg DAILY 07/01/20 13:00 07/01/20 16:41 20 MG Clonazepam (KlonoPIN) 1 mg BID 07/01/20 13:00 07/01/20 16:42 1 MG Digoxin (Lanoxin) 500 mcg 1X ONCE 07/01/20 16:00 07/01/20 16:01 DC 07/01/20 16:44 500 MCG Dronabinol (Marinol) 2.5 mg BIDACLD 07/01/20 16:30 07/01/20 16:42 2.5 MG Famotidine (Pepcid Vial) 20 mg DAILY 06/30/20 12:00 07/02/20 08:29 DC 07/01/20 07:35 20 MG Ferrous Sulfate (Feosol) 325 mg DAILY 07/01/20 13:00 07/01/20 16:45 325 MG Furosemide (Lasix) 40 mg DAILY 07/02/20 09:00 UNV Gabapentin (Neurontin) 1,200 mg QHS 07/01/20 21:00 07/01/20 21:10 1,200 MG Heparin Sodium (Porcine) (Heparin Sodium) 2,500 unit 1X ONCE 07/01/20 12:30 07/01/20 12:32 DC 07/01/20 12:49 2,500 UNIT Hydromorphone HCl (Dilaudid) 0.2 mg PRN Q1HR PRN 06/30/20 10:45 UNV Info (Icu Electrolyte Protocol) 1 ea DAILY 07/01/20 09:00 07/01/20 07:37 1 EA Info (PHARMACY MONITORING -- do not chart) 1 each PRN DAILY PRN 07/01/20 11:30 Levothyroxine Sodium (Synthroid) 100 mcg DAILY06 07/01/20 13:00 07/02/20 05:48 100 MCG Lidocaine HCl (Buffered Lidocaine 1%) 6 ml 1X ONCE 07/01/20 12:30 07/01/20 12:32 DC 07/01/20 12:49 6 ML Lorazepam (Ativan) 0.5 mg PRN Q4HRS PRN 07/01/20 12:30 Magnesium Sulfate 100 ml @ 25 mls/hr 1X ONCE 07/02/20 07:15 07/02/20 11:14 07/02/20 07:15 25 MLS/HR Magnesium Sulfate/ Dextrose 100 ml @ 100 mls/hr 1X ONCE 06/30/20 17:30 06/30/20 18:29 DC 06/30/20 23:18 100 MLS/HR Mirtazapine (Remeron) 30 mg QHS 07/01/20 21:00 07/01/20 21:10 30 MG Multivitamins (Thera M Plus) 1 tab DAILY 07/01/20 13:00 07/01/20 16:42 1 TAB Non-Formulary Medication (Selenium ) 0.5 cap DAILY 07/02/20 09:00 07/01/20 12:31 DC Norepinephrine Bitartrate 8 mg/ Dextrose 258 ml @ 0 mls/hr CONT PRN 06/30/20 11:00 UNV Ondansetron HCl (Zofran Odt) 4 mg Q8HRS PRN 07/01/20 12:30 Ondansetron HCl (Zofran) 4 mg PRN Q6HRS PRN 06/30/20 10:45 Oxycodone/ Acetaminophen (Percocet 5/325) 1 tab PRN Q4HRS PRN 07/01/20 12:30 Pantoprazole Sodium (Protonix) 40 mg BIDAC 07/01/20 16:30 Piperacillin Sod/ Tazobactam Sod (Zosyn Per Pharmacy) 1 each PRN DAILY PRN 06/30/20 09:15 Piperacillin Sod/ Tazobactam Sod 2.25 gm/Sodium Chloride 50 ml @ 100 mls/hr Q6HRS 06/30/20 12:00 07/02/20 05:48 100 MLS/HR Piperacillin Sod/ Tazobactam Sod 3.375 gm/Sodium Chloride 50 ml @ 100 mls/hr 1X ONCE 06/30/20 06:30 06/30/20 06:59 DC 06/30/20 07:54 100 MLS/HR Potassium Chloride/Water 100 ml @ 100 mls/hr Q1H 07/02/20 07:15 07/02/20 09:14 07/02/20 07:47 100 MLS/HR Prochlorperazine (Compazine) 25 mg PRN Q12HR PRN 06/30/20 10:45 Senna/Docusate Sodium (Senna Plus) 2 tab PRN BID PRN 07/01/20 12:30 Sodium Bicarbonate (Sodium Bicarbonate) 1,300 mg TID 07/01/20 14:00 07/01/20 18:09 DC Sodium Bicarbonate (Sodium Bicarb Adult 8.4% Syr) 100 meq 1X ONCE 07/01/20 08:45 07/01/20 08:49 DC 07/01/20 08:58 100 MEQ Sodium Chloride 1,000 ml @ 400 mls/hr Q2H30M PRN 07/01/20 11:30 07/01/20 23:29 DC Sodium Chloride (Normal Saline Flush) 3 ml QSHIFT PRN 06/30/20 10:45 Vancomycin HCl 1 gm/Sodium Chloride 250 ml @ 250 mls/hr 1X ONCE 06/30/20 06:45 06/30/20 07:44 DC 06/30/20 08:37 250 MLS/HR Labs: Lab Laboratory Tests Test 07/01/20 13:25 07/02/20 06:00 Hepatitis B Surface Antibody, Quant 89.7 mIU/mL (Immunity>9.9) Sodium Level 141 mmol/L (136-145) Potassium Level 3.1 mmol/L (3.5-5.1) Chloride Level 108 mmol/L (98-107) Carbon Dioxide Level 27 mmol/L (21-32) Anion Gap 6 (6-14) Blood Urea Nitrogen 19 mg/dL (7-20) Creatinine 1.1 mg/dL (0.6-1.0) Estimated GFR (Cockcroft-Gault) 48.6 Glucose Level 91 mg/dL (70-99) Calcium Level 7.7 mg/dL (8.5-10.1) Phosphorus Level 1.4 mg/dL (2.6-4.7) Magnesium Level 1.6 mg/dL (1.8-2.4) Objective: Assessment: Leukocytosis Klebsiella UTI, Pneumonia possible aspiration Acute kidney injury on CKD Severe protein calorie malnutrition Covid negative Generalized debility hypothyroidism history of bowel obstruction, status post multiple abdominal surgeries. Plan: Plan of Care 1. Cont Zosyn 2. Follow up labs and cultures. 3. Continue supportive care. 4. Maintain aspiration precaution MITCH ASTORGA MD Jul 02, 2020 08:35
--- NOTE | 2020-07-02 08:42 | PDOC ---
PULMONARY PROGRESS NOTES DATE: 07/02/20 TIME: 08:42 Subjective Patient remains on room air Continues on vasopressors Reports increase in appetite and overall feeling better today Vitals Vital Signs Date Time Temp Pulse Resp B/P (MAP) Pulse Ox O2 Delivery O2 Flow Rate FiO2 07/02/20 08:00 98.8 76 18 111/65 (80) 97 Room Air 98.8 ROS: No Nausea, No Chest Pain, No Abdominal Pain, No Increase Cough General: Alert, Oriented X4 Lungs: Clear Cardiovascular: S1, S2 Abdomen: Soft Neuro Exam: Alert Extremities: No Edema Skin: Warm, Dry Labs Laboratory Tests Test 06/30/20 09:25 06/30/20 11:55 07/01/20 05:50 07/01/20 06:48 Coronavirus (PCR) Not detected (Not Detected) Lactate Dehydrogenase 190 U/L (81-234) Troponin I Quantitative 0.056 ng/mL (0.000-0.055) Procalcitonin 0.16 ng/mL (0.00-0.10) White Blood Count 19.8 x10^3/uL (4.0-11.0) Red Blood Count 3.08 x10^6/uL (3.50-5.40) Hemoglobin 9.7 g/dL (12.0-15.5) Hematocrit 30.1 % (36.0-47.0) Mean Corpuscular Volume 98 fL (79-100) Mean Corpuscular Hemoglobin 31 pg (25-35) Mean Corpuscular Hemoglobin Concent 32 g/dL (31-37) Red Cell Distribution Width 15.2 % (11.5-14.5) Platelet Count 311 x10^3/uL (140-400) Neutrophils (%) (Auto) 86 % (31-73) Lymphocytes (%) (Auto) 8 % (24-48) Monocytes (%) (Auto) 5 % (0-9) Eosinophils (%) (Auto) 0 % (0-3) Basophils (%) (Auto) 0 % (0-3) Neutrophils # (Auto) 17.0 x10^3/uL (1.8-7.7) Lymphocytes # (Auto) 1.6 x10^3/uL (1.0-4.8) Monocytes # (Auto) 1.0 x10^3/uL (0.0-1.1) Eosinophils # (Auto) 0.1 x10^3/uL (0.0-0.7) Basophils # (Auto) 0.1 x10^3/uL (0.0-0.2) Segmented Neutrophils % 65 % (35-66) Band Neutrophils % 21 % (0-9) Lymphocytes % 10 % (24-48) Monocytes % 3 % (0-10) Metamyelocytes % 1 % (0-0) Toxic Granulation Slight Toxic Vacuolation Present Platelet Estimate Adequate (ADEQUATE) Prothrombin Time 17.1 SEC (11.7-14.0) Prothromb Time International Ratio 1.4 (0.8-1.1) Activated Partial Thromboplast Time 31 SEC (24-38) Sodium Level 145 mmol/L (136-145) Potassium Level 3.5 mmol/L (3.5-5.1) Chloride Level 116 mmol/L (98-107) Carbon Dioxide Level 12 mmol/L (21-32) Anion Gap 17 (6-14) Blood Urea Nitrogen 62 mg/dL (7-20) Creatinine 2.1 mg/dL (0.6-1.0) Estimated GFR (Cockcroft-Gault) 23.0 BUN/Creatinine Ratio 30 (6-20) Glucose Level 144 mg/dL (70-99) Calcium Level 8.1 mg/dL (8.5-10.1) Magnesium Level 1.8 mg/dL (1.8-2.4) Total Bilirubin 0.6 mg/dL (0.2-1.0) Aspartate Amino Transf (AST/SGOT) 18 U/L (15-37) Alanine Aminotransferase (ALT/SGPT) 25 U/L (14-59) Alkaline Phosphatase 95 U/L (46-116) Creatine Kinase 42 U/L (26-192) Total Protein 5.5 g/dL (6.4-8.2) Albumin 1.6 g/dL (3.4-5.0) Albumin/Globulin Ratio 0.4 (1.0-1.7) Hepatitis B Surface Antigen Nonreactive (Nonreactive) O2 Saturation 97 % (92-99) Arterial Blood pH 7.32 (7.35-7.45) Arterial Blood pCO2 at Patient Temp 16 mmHg (35-46) Arterial Blood pO2 at Patient Temp 107 mmHg (65-108) Arterial Blood HCO3 8 mmol/L (21-28) Arterial Blood Base Excess -16 mmol/L (-3-3) FiO2 21/ra Test 07/01/20 13:25 07/02/20 06:00 Hepatitis B Surface Antibody, Quant 89.7 mIU/mL (Immunity>9.9) Sodium Level 141 mmol/L (136-145) Potassium Level 3.1 mmol/L (3.5-5.1) Chloride Level 108 mmol/L (98-107) Carbon Dioxide Level 27 mmol/L (21-32) Anion Gap 6 (6-14) Blood Urea Nitrogen 19 mg/dL (7-20) Creatinine 1.1 mg/dL (0.6-1.0) Estimated GFR (Cockcroft-Gault) 48.6 Glucose Level 91 mg/dL (70-99) Calcium Level 7.7 mg/dL (8.5-10.1) Phosphorus Level 1.4 mg/dL (2.6-4.7) Magnesium Level 1.6 mg/dL (1.8-2.4) Laboratory Tests Test 07/01/20 13:25 07/02/20 06:00 Hepatitis B Surface Antibody, Quant 89.7 mIU/mL (Immunity>9.9) Sodium Level 141 mmol/L (136-145) Potassium Level 3.1 mmol/L (3.5-5.1) Chloride Level 108 mmol/L (98-107) Carbon Dioxide Level 27 mmol/L (21-32) Anion Gap 6 (6-14) Blood Urea Nitrogen 19 mg/dL (7-20) Creatinine 1.1 mg/dL (0.6-1.0) Estimated GFR (Cockcroft-Gault) 48.6 Glucose Level 91 mg/dL (70-99) Calcium Level 7.7 mg/dL (8.5-10.1) Phosphorus Level 1.4 mg/dL (2.6-4.7) Magnesium Level 1.6 mg/dL (1.8-2.4) Medications Active Scripts Medications Dose Route/Sig Max Daily Dose Days Date Category Percocet 5-325 Mg Tablet (Oxycodone/Acetaminophen) 1 Each Tablet 1 Tab PO PRN Q4HRS PRN 6 09/17/18 Rx Tylenol (Acetaminophen) 325 Mg Tablet 650 Mg PO PRN Q4HRS PRN 30 09/17/18 Rx Ativan (Lorazepam) 0.5 Mg Tablet 0.5 Mg PO PRN Q4HRS PRN 15 09/17/18 Rx Furosemide 40 Mg Tablet 40 Mg PO DAILY 30 09/17/18 Rx Senna-Time S Tablet (Sennosides/Docusate Sodium) 1 Each Tablet 2 Tab PO PRN BID PRN 30 09/17/18 Rx Enoxaparin Sodium 30 Mg/0.3 Ml Disp.syrin 30 Mg SQ Q24H 14 09/17/18 Rx Calcium + Vitamin D Tablet (Calcium Carbonate/Vitamin D3) 1 Each Tablet 2 Each PO DAILY 09/14/18 Reported Multivitamins (Multivitamin) 1 Each Tablet 1 Tab PO DAILY 09/14/18 Reported Sodium Bicarbonate 650 Mg Tablet 2 Tab PO TID 09/14/18 Reported Levothyroxine Sodium 100 Mcg Tablet 100 Mcg PO DAILYAC 05/02/15 Reported Abilify (Aripiprazole) 10 Mg Tablet 2 Tab PO HS 05/01/15 Reported Wellbutrin Sr (Bupropion Hcl) 150 Mg Tablet.er 150 Mg PO DAILY 05/01/15 Reported Omeprazole 40 Mg Capsule.dr 40 Mg PO BID 10/13/13 Reported Gabapentin 600 Mg Tablet 1,200 Mg PO BID 10/13/13 Reported Mirtazapine 30 Mg Tablet 30 Mg PO HS 10/13/13 Reported Citalopram Hbr (Citalopram Hydrobromide) 40 Mg Tablet 20 Mg PO DAILY 10/13/13 Reported Comments CXR IMPRESSION: 1. Left lung base and left hilar airspace opacities likely consolidative process as pneumonia. 2. Support lines/tubes as above. ECHO <Conclusion> The left ventricular systolic function is normal and the ejection fraction is within normal range. The Ejection Fraction is 60-65%. There is normal LV segmental wall motion. There is moderate to severe concentric left ventricular hypertrophy. Doppler and Color Flow revealed mild aortic regurgitation. Impression . IMPRESSION: 1. Acute hypoxic respiratory failure secondary to combination of pneumonia and septic shock. 2. Septic shock, likely source is pneumonia and a component of volume depletion as well. 3. Acute kidney injury, likely component of hypovolemia. 4. Severe protein-calorie malnutrition. 5. No significant tobacco history. Plan . RECOMMENDATIONS: Continue supplemental oxygen if needed, currently on room air Follow infectious disease recommendations in regards to antibiotics, on Zosyn, cultures growing KLEBSIELLA PNEUMONIAE in urine Continue Marinol for appetite Await COVID-19 results, continue isolation precautions Follow speech recommendations, continue dysphagia diet Follow cardiology recommendations, echocardiogram reviewed EF within normal limits Continue vasopressors as needed to keep MAP greater than 65, remains on Levophed Follow nephrology recommendations, hemodialysis DVT/GI prophylaxis Discussed with healthcare marketer time [id number] AM CAROLINA CANNON MD Jul 02, 2020 08:42
[2020-07-02] MEDS: FERROUS SULFATE 325 MG TABLET. PO SCH (08:48)
[2020-07-02] MEDS ORDERED: FUROSEMIDE 40 MG TABLET. PO SCH (09:00)
[2020-07-02] MEDS: clonazePAM 0.5 MG TABLET PO SCH ×2 (09:00→21:12)
[2020-07-02] MEDS ORDERED: SELENIUM PO SCH (09:00)
[2020-07-02] MEDS: PANTOPRAZOLE 40 MG TABLET.DR. PO SCH ×2 (09:01→16:42)
[2020-07-02] MEDS: CITALOPRAM 20 MG TABLET. PO SCH (09:01)
[2020-07-02] MEDS: MULTIVITAMIN with MINERAL TABLET. PO SCH (09:01)
[2020-07-02] MEDS: ARIPiprazole 5 MG TABLET PO SCH (09:01)
[2020-07-02] MEDS: CALCIUM CARB/VIT D3 500/200 TABLET. PO SCH ×2 (09:01→16:42)
[2020-07-02] MEDS: LIPASE/PROTEAS/AMYLAS 10/32/42 CAPSULE.DR. PO SCH ×3 (09:02→16:42)
[2020-07-02] MEDS: ASPIRIN ENTERIC COATED 81 MG TABLET.DR. PO SCH (09:02)
[2020-07-02] MEDS: buPROPion XL 150 MG TAB.ER.24H. PO SCH (09:02)
--- NOTE | 2020-07-02 10:11 | PDOC ---
VITA VASQUEZ RECHECKER 07/02/20 1011: CARDIO Progress Notes Date and Time Date of Service 07/02/2020 Time of Evaluation 0940 Subjective Subjective: No Chest Pain, No shortness of breath, No Palpitations Vitals Vitals Vital Signs Date Time Temp Pulse Resp B/P (MAP) Pulse Ox O2 Delivery O2 Flow Rate FiO2 07/02/20 09:00 87 16 104/62 (76) 99 Room Air 07/02/20 08:00 98.8 98.8 Weight Weight [ ] Input and Output Intake and Output Intake and Output 07/02/20 07:00 Intake Total 3700 ml Output Total 785 ml Balance 2915 ml Intake Oral 1180 ml IV Total 1625 ml Blood Product IV Normal Saline Flush 895 ml Output Urine Total 785 ml # Bowel Movements 2 Laboratory Labs Laboratory Tests Test 07/01/20 13:25 07/02/20 06:00 Hepatitis B Surface Antibody, Quant 89.7 mIU/mL (Immunity>9.9) Sodium Level 141 mmol/L (136-145) Potassium Level 3.1 mmol/L (3.5-5.1) Chloride Level 108 mmol/L (98-107) Carbon Dioxide Level 27 mmol/L (21-32) Anion Gap 6 (6-14) Blood Urea Nitrogen 19 mg/dL (7-20) Creatinine 1.1 mg/dL (0.6-1.0) Estimated GFR (Cockcroft-Gault) 48.6 Glucose Level 91 mg/dL (70-99) Calcium Level 7.7 mg/dL (8.5-10.1) Phosphorus Level 1.4 mg/dL (2.6-4.7) Magnesium Level 1.6 mg/dL (1.8-2.4) Microbiology Micro Microbiology 06/30/20 Blood Culture - Preliminary, Resulted NO GROWTH AFTER 1 DAY 06/30/20 Urine Culture - Final, Complete 06/30/20 Antimicrobic Susceptibility - Final, Complete Review of Systems Constitutional: yes: weakness, alert, oriented Ears/Nose/Throat: Yes: no symptom reported Eyes: Yes: no symptom reported Pulmonary: Yes no symptom reported Cardiovascular: Yes no symptom reported Gastrointestional: Yes: no symptom reported Genitourinary: Yes: no symptom reported Musculoskeletal: Yes: muscle stiffness Skin: Yes no symptom reported Psychiatric/Neurological: Yes: no symptom reported Endocrine: Yes: no symptom reported Physical Exam HEENT: Neck Supple W Full Motion Chest: Symmetric LUNGS: Other (diminished bases) Heart: irregularly irregular (AFIB rate controlled) Abdomen: Soft N/T Extremities: No Edema, No Calf Tenderness Neurology: alert, oriented, follow commands Assessment Assessment 1. Sepsis/shock with HCAP and UTI. Covid negative 2. NIC on CKD: unclear baseline. receiving HD 3. Weakness/deconditioning/debility 4. Suspect acute diastolic CHF: induced by sepsis and severe NIC 5. PAFIB with RVR: new finding. now afib rate controlled. EF and WM nml 6. Mild troponin elevation: type 2 peaked at 0.05 with above culprits 7. Hypothyroidism: TSH on goal 8. 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 Normocytic anemia 10. Moderate to severe LVH 11. Diastolic CHF Recommendations 1. Antibiotics per ID 2. Fluid off loading per HD 3. Still needing levophed. Will place back on BB once BP is consistently adequate 4. Dig PRN. 5. ECASA 81 mg for now 6. Replace K and Mg 7. Consider outpt ischemic w/u as outpt Justicifation of Admission Dx: Justifications for Admission: Justification of Admission Dx: Yes MARY FULLER MD 07/02/20 1644: CARDIO Progress Notes Assessment Assessment Patient seen and examined. Agree with CLERICAL DENTIST ASSISTANT's assessment and plan. Atrial fibrillation with RVR, newly diagnosed, rate better controlled. Continue fluid removal with hemodialysis for acute on chronic diastolic heart failure. Nephrology following. Slight troponin elevation probably demand ischemia. Covid negative. 2D echo shows normal LV systolic function without any wall motion abnormalities. Ischemic work-up could be considered as an outpatient.. Patient continues to need pressor support for sepsis. Continue management of pneumonia/UTI/sepsis per pulmonary and ID teams. VITA VASQUEZ APRN Jul 02, 2020 10:11 MARY FULLER MD Jul 02, 2020 16:44
--- NOTE | 2020-07-02 10:51 | PDOC ---
[employer] PROGRESS NOTE Date of Service DOS: DATE: 07/02/20 TIME: 10:49 Chief Complaint Chief Complaint SEVERE SEPSIS Left lung base airspace consolidative process as pneumonia. Small left pleural effusion. suspect aspiration and COVID 19 UTI NIC, HYPOPERFUSION, SHOCK PUI History of Present Illness History of Present Illness 07/02/2020 Patient seen and examined in the ICU Discussed with RN Chart reviewed She is resting with no apparent distress but quite ill Receiving IV magnesium Has Levophed drip 07/01/2020 Patient seen and examined in the ICU Discussed with RN Chart reviewed She is on IV Levophed and maintenance IV She is going for hemodialysis catheter today as she is having difficulty with acid-base balance Trying to go in and out of A. fib cardiology is consulted She remains quite ill Vitals/I&O Vitals/I&O: Vital Signs Date Time Temp Pulse Resp B/P (MAP) Pulse Ox O2 Delivery O2 Flow Rate FiO2 07/02/20 10:00 80 22 96/53 (67) 99 Room Air 07/02/20 08:00 98.8 98.8 I & O 07/01/20 07/01/20 07/02/20 15:00 23:00 07:00 Intake Total 150 ml 2655 ml 895 ml Output Total 375 ml 320 ml 90 ml Balance -225 ml 2335 ml 805 ml Physical Exam Physical Exam: GENERAL: Alert, awake, weak-appearing female, lying in bed comfortably, in no acute distress, answers most of the questions. HEENT: Normocephalic, atraumatic, anicteric. NECK: Supple. LUNGS: Decreased breath sounds at the bases. HEART: S1, S2. ABDOMEN: Soft, nontender, bowel sounds present. EXTREMITIES: No edema, no cyanosis. DERMATOLOGIC: Mild skin breakdown on the right lower extremity, superficial, not infected. NEUROLOGIC: Generalized weakness, somewhat confused, alert, awake. MUSCULOSKELETAL: No joint swelling. Weakness present. General: No acute distress, Other (Very lethargic) Heart: No murmurs, Other (AFIB) Lungs: Crackles Abdomen: Soft, Other (scaphoid abdomen) Extremities: No cyanosis, No edema Skin: No significant lesion Labs Labs: Laboratory Tests Test 07/01/20 13:25 07/02/20 06:00 Hepatitis B Surface Antibody, Quant 89.7 mIU/mL (Immunity>9.9) Sodium Level 141 mmol/L (136-145) Potassium Level 3.1 mmol/L (3.5-5.1) Chloride Level 108 mmol/L (98-107) Carbon Dioxide Level 27 mmol/L (21-32) Anion Gap 6 (6-14) Blood Urea Nitrogen 19 mg/dL (7-20) Creatinine 1.1 mg/dL (0.6-1.0) Estimated GFR (Cockcroft-Gault) 48.6 Glucose Level 91 mg/dL (70-99) Calcium Level 7.7 mg/dL (8.5-10.1) Phosphorus Level 1.4 mg/dL (2.6-4.7) Magnesium Level 1.6 mg/dL (1.8-2.4) Assessment and Plan Assessmemt and Plan Problems Medical Problems: (1) HCAP (healthcare-associated pneumonia) Status: Acute (2) Weakness Status: Acute SEVERE SEPSIS Left lung base airspace consolidative process as pneumonia. Small left pleural effusion. suspect aspiration and COVID 19 UTI NIC, HYPOPERFUSION, SHOCK PUI Plan ICU monitoring Dialysis per nephrology IV antibiotic Pulmonary and nephrology are following GI prophylaxis Home meds DVT prophylaxis Full code Await blood cultures Long-term prognosis guarded Trend labs Appreciate subspecialist input Comment Review of Relevant I have reviewed the following items isreal (where applicable) has been applied. Medications: Current Medications Medications (Trade) Dose Ordered Sig/Sumit Route PRN Reason Start Time Stop Time Status Last Admin Dose Admin Dronabinol (Marinol) 2.5 mg BIDACLD PO 07/01/20 16:30 07/01/20 16:42 Ferrous Sulfate (Feosol) 325 mg DAILY PO 07/01/20 13:00 07/02/20 08:48 Aripiprazole (Abilify) 30 mg DAILY PO 07/01/20 13:00 07/02/20 09:01 Bupropion HCl (Wellbutrin Xl) 300 mg DAILY PO 07/01/20 13:00 07/02/20 09:02 Calcium/Vitamin D (Oscal D 500mg/ 200uts) 1 tab BIDWMEALS PO 07/01/20 17:00 07/02/20 09:01 Citalopram Hydrobromide (CeleXA) 20 mg DAILY PO 07/01/20 13:00 07/02/20 09:01 Clonazepam (KlonoPIN) 1 mg BID PO 07/01/20 13:00 07/02/20 09:00 Gabapentin (Neurontin) 1,200 mg QHS PO 07/01/20 21:00 07/01/20 21:10 Levothyroxine Sodium (Synthroid) 100 mcg DAILY06 PO 07/01/20 13:00 07/02/20 05:48 Amylase/Lipase/ Protease (Zenpep 10,000) 1 cap TIDWMEALS PO 07/01/20 17:00 07/02/20 09:02 Mirtazapine (Remeron) 30 mg QHS PO 07/01/20 21:00 07/01/20 21:10 Multivitamins (Thera M Plus) 1 tab DAILY PO 07/01/20 13:00 07/02/20 09:01 Pantoprazole Sodium (Protonix) 40 mg BIDAC PO 07/01/20 16:30 07/02/20 09:01 Lidocaine HCl (Buffered Lidocaine 1%) 6 ml 1X ONCE INJ 07/01/20 12:30 07/01/20 12:32 DC 07/01/20 12:49 Heparin Sodium (Porcine) (Heparin Sodium) 2,500 unit 1X ONCE INT CAT 07/01/20 12:30 07/01/20 12:32 DC 07/01/20 12:49 Digoxin (Lanoxin) 500 mcg 1X ONCE IV 07/01/20 16:00 07/01/20 16:01 DC 07/01/20 16:44 Aspirin (Ecotrin) 81 mg DAILYWBKFT PO 07/02/20 08:00 07/02/20 09:02 Potassium Chloride/Water 100 ml @ 100 mls/hr Q1H IV 07/02/20 07:15 07/02/20 09:14 DC 07/02/20 09:03 Magnesium Sulfate 100 ml @ 25 mls/hr 1X ONCE IV 07/02/20 07:15 07/02/20 11:14 07/02/20 07:15 Justifications for Admission General Conditions Poss tachycardia?: Yes Justification for admission: Patient has tachycardia (> 100 beats per minute) which is not readily corrected by appropriate treatment within 12 to 24 hours. severe sepsis Other Justification MARYANN DUBOIS III DO Jul 02, 2020 10:51
[2020-07-02] MEDS ORDERED: SODIUM PHOSPHATE 20 MMOL in IV NORMAL SALINE 250ML 250 ML IV ONE ×2 (11:00→13:00)
[2020-07-02] MEDS: DRONABINOL 2.5 MG CAPSULE. PO SCH ×2 (11:35→16:42)
--- NOTE | 2020-07-02 12:21 | PDOC ---
Renal-Progress Notes Subjective Notes Notes SITTING UP History of Present Illness Hx of present illness STABLE Vitals Vitals Vital Signs Date Time Temp Pulse Resp B/P (MAP) Pulse Ox O2 Delivery O2 Flow Rate FiO2 07/02/20 12:00 98.7 84 18 100/68 (79) 99 Room Air 98.7 Weight Weight [ ] I.O. Intake and Output Intake and Output 07/02/20 07:00 Intake Total 3700 ml Output Total 785 ml Balance 2915 ml Intake Oral 1180 ml IV Total 1625 ml Blood Product IV Normal Saline Flush 895 ml Output Urine Total 785 ml # Bowel Movements 2 Labs Labs Laboratory Tests Test 07/01/20 13:25 07/02/20 06:00 Hepatitis B Surface Antibody, Quant 89.7 mIU/mL (Immunity>9.9) Sodium Level 141 mmol/L (136-145) Potassium Level 3.1 mmol/L (3.5-5.1) Chloride Level 108 mmol/L (98-107) Carbon Dioxide Level 27 mmol/L (21-32) Anion Gap 6 (6-14) Blood Urea Nitrogen 19 mg/dL (7-20) Creatinine 1.1 mg/dL (0.6-1.0) Estimated GFR (Cockcroft-Gault) 48.6 Glucose Level 91 mg/dL (70-99) Calcium Level 7.7 mg/dL (8.5-10.1) Phosphorus Level 1.4 mg/dL (2.6-4.7) Magnesium Level 1.6 mg/dL (1.8-2.4) Micro Micro Microbiology 06/30/20 Blood Culture - Preliminary, Resulted NO GROWTH AFTER 2 DAYS 06/30/20 Urine Culture - Final, Complete 06/30/20 Antimicrobic Susceptibility - Final, Complete Review of Systems Constitutional: yes: weakness, alert, oriented Ears/Nose/Throat: Yes: no symptom reported Eyes: Yes: no symptom reported Pulmonary: Yes no symptom reported Cardiovascular: Yes no symptom reported Gastrointestional: Yes: no symptom reported Genitourinary: Yes: no symptom reported Musculoskeletal: Yes: muscle stiffness Skin: Yes no symptom reported Psychiatric/Neurological: Yes: no symptom reported Endocrine: Yes: no symptom reported Physical Exam General Appearance: no apparent distress Skin: warm Respiratory: decreased breath sounds Heart: S1S2 Abdomen: soft, bowel sounds present Genitourinary: bladder flat Extremities: pulses present Neurology: alert, oriented, follow commands Musculoskeletal: Osteoarthritis, Other (chronic debility) Assessment Assessment IMP NIC IMPROVING CLEARANCE AND UO AG MET ACIDOSIS - RESOLVING CKD STAGE 4 WITH CR OF 1.7 AT BASELINE ACUTE HYPOXIC RESP FAILURE SEPSIS WITH SHOCK PROB DEHYDRATION HYPOMAGNESEMIA LOW MAG AND K MALNUTRITION PNEUMONIA UTI PLAN HOLD HD SHE APPEARS TO BE RECOVERING CONT HYDRATIONS REPLACE MAG, PO4 AND K ANTIBIOTICS SUPPLEMENTAL O2 D/W MARGARET MOREJON MD Jul 02, 2020 12:21
[2020-07-02] MEDS: NOREPINEPHRINE VIAL 8 MG in IV DEXTROSE 5% 250 ML IV PRN (13:30)
--- NOTE | 2020-07-02 13:49 | NUR ---
Wound/Ostomy Care Wound Type/Assessment: Pt seen per wound care consult. See wound assessment. Pt has stage III with DTI PU to coccyx, a skin tear to the right lower leg, and abrasions to the right and left 2nd toes which are now scabbed. Wounds cleansed and assessed. Treatment Recommendations/Plan: Recommendations for contact layer and foam dressing to coccyx, xeroform gauze and foam dressing to right lower leg, and the scabbed abrasions just apply skin prep to keep closed. Change dressings every 2-3 days. Also recommend apply skin prep to spine and shoulder blades as these areas are reddened but remain blanchable. Education provided: Pt educated on dressing changes and PU prevention. Offloading surface/device: Pt on ICU bed at this time. Pt refused the purple wedge and bilateral heels elevated using pillows. Recommended Referrals/Tests: N/A Discharge Recommendations for dressings: Dressing change instructions left in room. No other wounds noted upon complete head to toe assessment. Wound care will follow up on 07/09/20.
[2020-07-02] MEDS: GABAPENTIN 400 MG CAPSULE. PO SCH (21:12)
[2020-07-02] MEDS: MIRTAZAPINE 15 MG TABLET PO SCH (21:12)
[2020-07-03] VITALS (26 sets, daily range): BP systolic 82–151; BP diastolic 45–77
[2020-07-03] MEDS: IV NORMAL SALINE 1000ML BAG 1,000 ML IV SCH ×3 (02:47→14:43)
--- NOTE | 2020-07-03 06:17 | PDOC ---
PULMONARY PROGRESS NOTES DATE: 07/03/20 TIME: 06:16 Subjective Patient remains on room air is tired no sob has occ cough no pain Continues on vasopressors Vitals Vital Signs Date Time Temp Pulse Resp B/P (MAP) Pulse Ox O2 Delivery O2 Flow Rate FiO2 07/03/20 05:00 76 26 113/64 (80) 99 Room Air 07/03/20 04:00 98.6 98.6 ROS: No Nausea, No Chest Pain, No Abdominal Pain, No Increase Cough General: Alert, Oriented X4 HEENT: Other (nc at perrl nose throat clear) Lungs: Crackles Cardiovascular: S1, S2 Abdomen: Soft Neuro Exam: Alert Extremities: No Edema Skin: Warm, Dry Labs Laboratory Tests Test 07/01/20 06:48 07/01/20 13:25 07/02/20 06:00 O2 Saturation 97 % (92-99) Arterial Blood pH 7.32 (7.35-7.45) Arterial Blood pCO2 at Patient Temp 16 mmHg (35-46) Arterial Blood pO2 at Patient Temp 107 mmHg (65-108) Arterial Blood HCO3 8 mmol/L (21-28) Arterial Blood Base Excess -16 mmol/L (-3-3) FiO2 21/ra Hepatitis B Surface Antibody, Quant 89.7 mIU/mL (Immunity>9.9) Sodium Level 141 mmol/L (136-145) Potassium Level 3.1 mmol/L (3.5-5.1) Chloride Level 108 mmol/L (98-107) Carbon Dioxide Level 27 mmol/L (21-32) Anion Gap 6 (6-14) Blood Urea Nitrogen 19 mg/dL (7-20) Creatinine 1.1 mg/dL (0.6-1.0) Estimated GFR (Cockcroft-Gault) 48.6 Glucose Level 91 mg/dL (70-99) Calcium Level 7.7 mg/dL (8.5-10.1) Phosphorus Level 1.4 mg/dL (2.6-4.7) Magnesium Level 1.6 mg/dL (1.8-2.4) Medications Active Scripts Medications Dose Route/Sig Max Daily Dose Days Date Category Percocet 5-325 Mg Tablet (Oxycodone/Acetaminophen) 1 Each Tablet 1 Tab PO PRN Q4HRS PRN 6 09/17/18 Rx Tylenol (Acetaminophen) 325 Mg Tablet 650 Mg PO PRN Q4HRS PRN 30 09/17/18 Rx Ativan (Lorazepam) 0.5 Mg Tablet 0.5 Mg PO PRN Q4HRS PRN 15 09/17/18 Rx Furosemide 40 Mg Tablet 40 Mg PO DAILY 30 09/17/18 Rx Senna-Time S Tablet (Sennosides/Docusate Sodium) 1 Each Tablet 2 Tab PO PRN BID PRN 30 09/17/18 Rx Enoxaparin Sodium 30 Mg/0.3 Ml Disp.syrin 30 Mg SQ Q24H 14 09/17/18 Rx Calcium + Vitamin D Tablet (Calcium Carbonate/Vitamin D3) 1 Each Tablet 2 Each PO DAILY 09/14/18 Reported Multivitamins (Multivitamin) 1 Each Tablet 1 Tab PO DAILY 09/14/18 Reported Sodium Bicarbonate 650 Mg Tablet 2 Tab PO TID 09/14/18 Reported Levothyroxine Sodium 100 Mcg Tablet 100 Mcg PO DAILYAC 05/02/15 Reported Abilify (Aripiprazole) 10 Mg Tablet 2 Tab PO HS 05/01/15 Reported Wellbutrin Sr (Bupropion Hcl) 150 Mg Tablet.er 150 Mg PO DAILY 05/01/15 Reported Omeprazole 40 Mg Capsule.dr 40 Mg PO BID 10/13/13 Reported Gabapentin 600 Mg Tablet 1,200 Mg PO BID 10/13/13 Reported Mirtazapine 30 Mg Tablet 30 Mg PO HS 10/13/13 Reported Citalopram Hbr (Citalopram Hydrobromide) 40 Mg Tablet 20 Mg PO DAILY 10/13/13 Reported Comments CXR IMPRESSION: 1. Left lung base and left hilar airspace opacities likely consolidative process as pneumonia. 2. Support lines/tubes as above. ECHO <Conclusion> The left ventricular systolic function is normal and the ejection fraction is within normal range. The Ejection Fraction is 60-65%. There is normal LV segmental wall motion. There is moderate to severe concentric left ventricular hypertrophy. Doppler and Color Flow revealed mild aortic regurgitation. Impression . IMPRESSION: 1. Acute hypoxic respiratory failure secondary to combination of pneumonia and septic shock. 2. Septic shock, likely source is pneumonia and a component of volume depletion as well. 3. Acute kidney injury, likely component of hypovolemia. 4. Severe protein-calorie malnutrition. 5. No significant tobacco history. Plan . RECOMMENDATIONS: Continue supplemental oxygen if needed, currently on room air Follow infectious disease recommendations in regards to antibiotics, cultures growing KLEBSIELLA PNEUMONIAE in urine Continue Marinol for appetite Await COVID-19 results, continue isolation precautions Follow speech recommendations, continue dysphagia diet, aspiration precaution elevate hob Follow cardiology recommendations, echocardiogram reviewed EF within normal limits Continue vasopressors as needed to keep MAP 65, remains on Levophed Follow nephrology recommendations, hemodialysis DVT/GI prophylaxis Discussed with EBONI COTTER MD Jul 03, 2020 06:17
[2020-07-03] MEDS: LEVOTHYROXINE 100 MCG TABLET PO SCH (06:19)
[2020-07-03] MEDS: HEPARIN for SUB-Q USE 5,000 UNIT/ML VIAL. SQ SCH ×3 (06:20→21:09)
[2020-07-03] MEDS: PIPERACILLIN/TAZOBACTAM 2.25 GM in IV NORMAL SALINE 50ML 50 ML IV SCH ×4 (06:21→18:07)
[2020-07-03 06:28] LABS: BASO % 0 % (0-3); EOS # 0.2 x10^3/uL (0.0-0.7); EOS % 3 % (0-3); HEMATOCRIT 24.5 % (36.0-47.0); HEMOGLOBIN 8.1 g/dL (12.0-15.5); LYMPH # 1.4 x10^3/uL (1.0-4.8); LYMPH % 16 % (24-48); MEAN CORPUSCULAR HEMOGLOBIN 32 pg (25-35); MEAN CORPUSCULAR HGB CONC 33 g/dL (31-37); MEAN CORPUSCULAR VOLUME 97 fL (79-100); MONO # 0.6 x10^3/uL (0.0-1.1); MONO % 7 % (0-9); NEUT # 6.4 x10^3/uL (1.8-7.7); NEUT % 75 % (31-73); PLATELET COUNT 167 x10^3/uL (140-400); RED BLOOD COUNT 2.54 x10^6/uL (3.50-5.40); WHITE BLOOD COUNT 8.6 x10^3/uL (4.0-11.0)
[2020-07-03 06:36] LABS: CALCIUM 7.3 mg/dL (8.5-10.1); CREATININE 1.4 mg/dL (0.6-1.0); GFR 36.8; MAGNESIUM 2.3 mg/dL (1.8-2.4); PHOSPHORUS 3.6 mg/dL (2.6-4.7); POTASSIUM 3.3 mmol/L (3.5-5.1)
[2020-07-03] MEDS: CARVEDILOL 6.25 MG TABLET. PO SCH ×2 (08:00→17:00)
--- NOTE | 2020-07-03 08:14 | PDOC ---
Infectious Disease Note Subjective: Subjective Patient without complaints feels better Still requiring Levophed Vital Signs: Vital Signs Vital Signs Date Time Temp Pulse Resp B/P (MAP) Pulse Ox O2 Delivery O2 Flow Rate FiO2 07/03/20 06:00 82 29 129/59 (82) 99 Room Air 07/03/20 04:00 98.6 98.6 Physical Exam: PHYSICAL EXAM GENERAL: Alert, awake, weak-appearing female, lying in bed comfortably, in no acute distress, answers most of the questions. HEENT: Normocephalic, atraumatic, anicteric. NECK: Supple. LUNGS: Decreased breath sounds at the bases. HEART: S1, S2. ABDOMEN: Soft, nontender, bowel sounds present. EXTREMITIES: No edema, no cyanosis. DERMATOLOGIC: Mild skin breakdown on the right lower extremity, superficial, not infected. NEUROLOGIC: Generalized weakness, somewhat confused, alert, awake. MUSCULOSKELETAL: No joint swelling. Weakness present. Medications: Inpatient Meds: Current Medications Medications (Trade) Dose Ordered Sig/Sumit Start Time Stop Time Status Last Admin Dose Admin Acetaminophen (Tylenol) 650 mg PRN Q4HRS PRN 07/01/20 12:30 Amylase/Lipase/ Protease (Zenpep 10,000) 1 cap TIDWMEALS 07/01/20 17:00 07/02/20 16:42 1 CAP Aripiprazole (Abilify) 30 mg DAILY 07/01/20 13:00 07/02/20 09:01 30 MG Aspirin (Ecotrin) 81 mg DAILYWBKFT 07/02/20 08:00 07/02/20 09:02 81 MG Bisacodyl (Dulcolax Supp) 10 mg PRN DAILY PRN 06/30/20 10:45 Bupropion HCl (Wellbutrin Xl) 300 mg DAILY 07/01/20 13:00 07/02/20 09:02 300 MG Calcium/Vitamin D (Oscal D 500mg/ 200uts) 1 tab BIDWMEALS 07/01/20 17:00 07/02/20 16:42 1 TAB Carvedilol (Coreg) 6.25 mg BIDWMEALS 07/01/20 17:00 Citalopram Hydrobromide (CeleXA) 20 mg DAILY 07/01/20 13:00 07/02/20 09:01 20 MG Clonazepam (KlonoPIN) 1 mg BID 07/01/20 13:00 07/02/20 21:12 1 MG Digoxin (Lanoxin) 500 mcg 1X ONCE 07/01/20 16:00 07/01/20 16:01 DC 07/01/20 16:44 500 MCG Dronabinol (Marinol) 2.5 mg BIDACLD 07/01/20 16:30 07/02/20 16:42 2.5 MG Famotidine (Pepcid Vial) 20 mg DAILY 06/30/20 12:00 07/02/20 08:29 DC 07/01/20 07:35 20 MG Ferrous Sulfate (Feosol) 325 mg DAILY 07/01/20 13:00 07/02/20 08:48 325 MG Furosemide (Lasix) 40 mg DAILY 07/02/20 09:00 UNV Gabapentin (Neurontin) 1,200 mg QHS 07/01/20 21:00 07/02/20 21:12 1,200 MG Heparin Sodium (Porcine) (Heparin Sodium) 2,500 unit 1X ONCE 07/01/20 12:30 07/01/20 12:32 DC 07/01/20 12:49 2,500 UNIT Hydromorphone HCl (Dilaudid) 0.2 mg PRN Q1HR PRN 06/30/20 10:45 UNV Info (Icu Electrolyte Protocol) 1 ea DAILY 07/01/20 09:00 07/02/20 08:31 1 EA Info (PHARMACY MONITORING -- do not chart) 1 each PRN DAILY PRN 07/01/20 11:30 Levothyroxine Sodium (Synthroid) 100 mcg DAILY06 07/01/20 13:00 07/03/20 06:19 100 MCG Lidocaine HCl (Buffered Lidocaine 1%) 6 ml 1X ONCE 07/01/20 12:30 07/01/20 12:32 DC 07/01/20 12:49 6 ML Lorazepam (Ativan) 0.5 mg PRN Q4HRS PRN 07/01/20 12:30 Magnesium Sulfate 100 ml @ 25 mls/hr 1X ONCE 07/02/20 07:15 07/02/20 11:14 DC 07/02/20 07:15 25 MLS/HR Magnesium Sulfate/ Dextrose 100 ml @ 100 mls/hr 1X ONCE 06/30/20 17:30 06/30/20 18:29 DC 06/30/20 23:18 100 MLS/HR Mirtazapine (Remeron) 30 mg QHS 07/01/20 21:00 07/02/20 21:12 30 MG Multivitamins (Thera M Plus) 1 tab DAILY 07/01/20 13:00 07/02/20 09:01 1 TAB Non-Formulary Medication (Selenium ) 0.5 cap DAILY 07/02/20 09:00 07/01/20 12:31 DC Norepinephrine Bitartrate 8 mg/ Dextrose 258 ml @ 0 mls/hr CONT PRN 06/30/20 11:00 UNV Ondansetron HCl (Zofran Odt) 4 mg Q8HRS PRN 07/01/20 12:30 Ondansetron HCl (Zofran) 4 mg PRN Q6HRS PRN 06/30/20 10:45 Oxycodone/ Acetaminophen (Percocet 5/325) 1 tab PRN Q4HRS PRN 07/01/20 12:30 Pantoprazole Sodium (Protonix) 40 mg BIDAC 07/01/20 16:30 07/02/20 16:42 40 MG Piperacillin Sod/ Tazobactam Sod (Zosyn Per Pharmacy) 1 each PRN DAILY PRN 06/30/20 09:15 Piperacillin Sod/ Tazobactam Sod 2.25 gm/Sodium Chloride 50 ml @ 100 mls/hr Q6HRS 06/30/20 12:00 07/03/20 06:21 100 MLS/HR Piperacillin Sod/ Tazobactam Sod 3.375 gm/Sodium Chloride 50 ml @ 100 mls/hr 1X ONCE 06/30/20 06:30 06/30/20 06:59 DC 06/30/20 07:54 100 MLS/HR Potassium Chloride/Water 100 ml @ 100 mls/hr Q1H 07/02/20 07:15 07/02/20 09:14 DC 07/02/20 09:03 100 MLS/HR Prochlorperazine (Compazine) 25 mg PRN Q12HR PRN 06/30/20 10:45 Senna/Docusate Sodium (Senna Plus) 2 tab PRN BID PRN 07/01/20 12:30 Sodium Bicarbonate (Sodium Bicarbonate) 1,300 mg TID 07/01/20 14:00 07/01/20 18:09 DC Sodium Bicarbonate (Sodium Bicarb Adult 8.4% Syr) 100 meq 1X ONCE 07/01/20 08:45 07/01/20 08:49 DC 07/01/20 08:58 100 MEQ Sodium Chloride 1,000 ml @ 400 mls/hr Q2H30M PRN 07/01/20 11:30 07/01/20 23:29 DC Sodium Chloride (Normal Saline Flush) 3 ml QSHIFT PRN 06/30/20 10:45 Sodium Phosphate 20 mmol/Sodium Chloride 256.6667 ml @ 64.167 m... 1X ONCE 07/02/20 13:00 07/02/20 16:59 DC 07/02/20 13:26 64.167 MLS/HR Vancomycin HCl 1 gm/Sodium Chloride 250 ml @ 250 mls/hr 1X ONCE 06/30/20 06:45 06/30/20 07:44 DC 06/30/20 08:37 250 MLS/HR Labs: Lab Laboratory Tests Test 07/03/20 06:10 White Blood Count 8.6 x10^3/uL (4.0-11.0) Red Blood Count 2.54 x10^6/uL (3.50-5.40) Hemoglobin 8.1 g/dL (12.0-15.5) Hematocrit 24.5 % (36.0-47.0) Mean Corpuscular Volume 97 fL (79-100) Mean Corpuscular Hemoglobin 32 pg (25-35) Mean Corpuscular Hemoglobin Concent 33 g/dL (31-37) Red Cell Distribution Width 15.0 % (11.5-14.5) Platelet Count 167 x10^3/uL (140-400) Neutrophils (%) (Auto) 75 % (31-73) Lymphocytes (%) (Auto) 16 % (24-48) Monocytes (%) (Auto) 7 % (0-9) Eosinophils (%) (Auto) 3 % (0-3) Basophils (%) (Auto) 0 % (0-3) Neutrophils # (Auto) 6.4 x10^3/uL (1.8-7.7) Lymphocytes # (Auto) 1.4 x10^3/uL (1.0-4.8) Monocytes # (Auto) 0.6 x10^3/uL (0.0-1.1) Eosinophils # (Auto) 0.2 x10^3/uL (0.0-0.7) Basophils # (Auto) 0.0 x10^3/uL (0.0-0.2) Sodium Level 142 mmol/L (136-145) Potassium Level 3.3 mmol/L (3.5-5.1) Chloride Level 111 mmol/L (98-107) Carbon Dioxide Level 22 mmol/L (21-32) Anion Gap 9 (6-14) Blood Urea Nitrogen 18 mg/dL (7-20) Creatinine 1.4 mg/dL (0.6-1.0) Estimated GFR (Cockcroft-Gault) 36.8 Glucose Level 84 mg/dL (70-99) Calcium Level 7.3 mg/dL (8.5-10.1) Phosphorus Level 3.6 mg/dL (2.6-4.7) Magnesium Level 2.3 mg/dL (1.8-2.4) Objective: Assessment: Leukocytosis, resolved Klebsiella UTI, Pneumonia possible aspiration Acute kidney injury on CKD Severe protein calorie malnutrition Covid negative Generalized debility hypothyroidism history of bowel obstruction, status post multiple abdominal surgeries. Plan: Plan of Care 1. Cont Zosyn 2. Follow up labs and cultures. 3. Continue supportive care. 4. Maintain aspiration precaution MITCH ASTORGA MD Jul 03, 2020 08:13
[2020-07-03] MEDS: MULTIVITAMIN with MINERAL TABLET. PO SCH (08:57)
[2020-07-03] MEDS: CALCIUM CARB/VIT D3 500/200 TABLET. PO SCH ×2 (08:57→17:17)
[2020-07-03] MEDS: buPROPion XL 150 MG TAB.ER.24H. PO SCH (08:57)
[2020-07-03] MEDS: PANTOPRAZOLE 40 MG TABLET.DR. PO SCH ×2 (08:57→17:17)
[2020-07-03] MEDS: CITALOPRAM 20 MG TABLET. PO SCH (08:57)
[2020-07-03] MEDS: ARIPiprazole 5 MG TABLET PO SCH (08:57)
[2020-07-03] MEDS: FERROUS SULFATE 325 MG TABLET. PO SCH (08:57)
[2020-07-03] MEDS: LIPASE/PROTEAS/AMYLAS 10/32/42 CAPSULE.DR. PO SCH ×3 (08:58→17:17)
[2020-07-03] MEDS: clonazePAM 0.5 MG TABLET PO SCH (08:58)
[2020-07-03] MEDS: ASPIRIN ENTERIC COATED 81 MG TABLET.DR. PO SCH (08:58)
[2020-07-03] MEDS: ELECTROLYTE (ICU) PROTOCOL. MC SCH (09:00)
[2020-07-03] MEDS: DRONABINOL 2.5 MG CAPSULE. PO SCH ×2 (10:59→17:17)
[2020-07-03] MEDS: POTASSIUM CHLORIDE 20MEQ 100 ML IV SCH ×2 (11:30→13:37)
[2020-07-03] MEDS ORDERED: clonazePAM 0.5 MG TABLET PO PRN (13:45)
--- NOTE | 2020-07-03 14:10 | PDOC ---
GENERAL General: Patient examined chart reviewed today is hospital day 3 for this patient with sepsis secondary to multidrug-resistant Klebsiella urinary tract infection as well as a left lower lobe pneumonia thought to be due to Klebsiella as well. She is slowly clinically improving but unfortunately still requiring Levophed to keep her blood pressure at an acceptable level. I am seeing her today with her nurse at bedside. She is appropriately identified that her extensive mental health medications may be related as well to her hypotension. We will adjust t hose and have her Klonopin be as needed rather than scheduled and continue to follow closely clinically. Appreciate subspecialty support. Problems: (1) Infection, Klebsiella (2) Weakness (3) Sepsis VITAL SIGNS Vital Signs/I&O: Vital Signs Date Time Temp Pulse Resp B/P (MAP) Pulse Ox O2 Delivery O2 Flow Rate FiO2 07/03/20 12:00 98.7 72 22 105/63 (77) 100 Room Air 98.7 I & O 07/02/20 07/02/20 07/03/20 15:00 23:00 07:00 Intake Total 900 ml 2557.29 ml 870 ml Output Total 165 ml 115 ml 220 ml Balance 735 ml 2442.29 ml 650 ml In general the patient is somnolent sitting up picking at her food pleasant at baseline orientation in no acute distress HEENT exam is unremarkable Chest bilateral equal air entry though diminished throughout no crackles or wheezes are noted Heart S1-S2 normal regular rate and rhythm no murmurs or gallops are noted Abdomen soft nontender nondistended no masses organomegaly noted Extremity exam is unremarkable for acute abnormality ALLERGIES Allergies: Allergies Coded Allergies Type Severity Reaction Last Updated Verified hydromorphone Allergy Intermediate Palpitations 10/14/13 Yes rosuvastatin Allergy Mild Nausea and Vomiting 10/14/13 Yes MEDS Medications: Current Medications Medications (Trade) Dose Ordered Sig/Sumit Start Time Stop Time Status Last Admin Dose Admin Acetaminophen (Tylenol) 650 mg PRN Q4HRS PRN 07/01/20 12:30 Amylase/Lipase/ Protease (Zenpep 10,000) 1 cap TIDWMEALS 07/01/20 17:00 07/03/20 08:58 Aripiprazole (Abilify) 30 mg DAILY 07/01/20 13:00 07/03/20 08:57 Aspirin (Ecotrin) 81 mg [id number] 07/02/20 08:00 07/03/20 08:58 Bisacodyl (Dulcolax Supp) 10 mg PRN DAILY PRN 06/30/20 10:45 Bupropion HCl (Wellbutrin Xl) 300 mg DAILY 07/01/20 13:00 07/03/20 08:57 Calcium/Vitamin D (Oscal D 500mg/ 200uts) 1 tab BIDWMEALS 07/01/20 17:00 07/03/20 08:57 Carvedilol (Coreg) 6.25 mg BIDWMEALS 07/01/20 17:00 Citalopram Hydrobromide (CeleXA) 20 mg DAILY 07/01/20 13:00 07/03/20 08:57 Clonazepam (KlonoPIN) 1 mg PRN BID PRN 07/03/20 13:45 Digoxin (Lanoxin) 500 mcg 1X ONCE 07/01/20 16:00 07/01/20 16:01 DC 07/01/20 16:44 Dronabinol (Marinol) 2.5 mg BIDACLD 07/01/20 16:30 07/03/20 10:59 Famotidine (Pepcid Vial) 20 mg DAILY 06/30/20 12:00 07/02/20 08:29 DC 07/01/20 07:35 Ferrous Sulfate (Feosol) 325 mg DAILY 07/01/20 13:00 07/03/20 08:57 Furosemide (Lasix) 40 mg DAILY 07/02/20 09:00 UNV Gabapentin (Neurontin) 1,200 mg QHS 07/01/20 21:00 07/02/20 21:12 Heparin Sodium (Porcine) (Heparin Sodium) 2,500 unit 1X ONCE 07/01/20 12:30 07/01/20 12:32 DC 07/01/20 12:49 Hydromorphone HCl (Dilaudid) 0.2 mg PRN Q1HR PRN 06/30/20 10:45 UNV Info (Icu Electrolyte Protocol) 1 ea DAILY 07/01/20 09:00 07/02/20 08:31 Info (PHARMACY MONITORING -- do not chart) 1 each PRN DAILY PRN 07/01/20 11:30 07/03/20 10:32 DC Levothyroxine Sodium (Synthroid) 100 mcg DAILY06 07/01/20 13:00 07/03/20 06:19 Lidocaine HCl (Buffered Lidocaine 1%) 6 ml 1X ONCE 07/01/20 12:30 07/01/20 12:32 DC 07/01/20 12:49 Lorazepam (Ativan) 0.5 mg PRN Q4HRS PRN 07/01/20 12:30 Magnesium Sulfate 100 ml @ 25 mls/hr 1X ONCE 07/02/20 07:15 07/02/20 11:14 DC 07/02/20 07:15 Magnesium Sulfate/ Dextrose 100 ml @ 100 mls/hr 1X ONCE 06/30/20 17:30 06/30/20 18:29 DC 06/30/20 23:18 Mirtazapine (Remeron) 30 mg QHS 07/01/20 21:00 07/02/20 21:12 Multivitamins (Thera M Plus) 1 tab DAILY 07/01/20 13:00 07/03/20 08:57 Non-Formulary Medication (Selenium ) 0.5 cap DAILY 07/02/20 09:00 07/01/20 12:31 DC Norepinephrine Bitartrate 8 mg/ Dextrose 258 ml @ 0 mls/hr CONT PRN 06/30/20 11:00 UNV Ondansetron HCl (Zofran Odt) 4 mg Q8HRS PRN 07/01/20 12:30 Ondansetron HCl (Zofran) 4 mg PRN Q6HRS PRN 06/30/20 10:45 Oxycodone/ Acetaminophen (Percocet 5/325) 1 tab PRN Q4HRS PRN 07/01/20 12:30 Pantoprazole Sodium (Protonix) 40 mg BIDAC 07/01/20 16:30 07/03/20 08:57 Piperacillin Sod/ Tazobactam Sod (Zosyn Per Pharmacy) 1 each PRN DAILY PRN 06/30/20 09:15 Piperacillin Sod/ Tazobactam Sod 2.25 gm/Sodium Chloride 50 ml @ 100 mls/hr Q6HRS 06/30/20 12:00 07/03/20 11:29 Piperacillin Sod/ Tazobactam Sod 3.375 gm/Sodium Chloride 50 ml @ 100 mls/hr 1X ONCE 06/30/20 06:30 06/30/20 06:59 DC 06/30/20 07:54 Potassium Chloride/Water 100 ml @ 100 mls/hr Q1H 07/03/20 11:00 07/03/20 12:59 DC 07/03/20 13:37 Prochlorperazine (Compazine) 25 mg PRN Q12HR PRN 06/30/20 10:45 Senna/Docusate Sodium (Senna Plus) 2 tab PRN BID PRN 07/01/20 12:30 Sodium Bicarbonate (Sodium Bicarbonate) 1,300 mg TID 07/01/20 14:00 07/01/20 18:09 DC Sodium Bicarbonate (Sodium Bicarb Adult 8.4% Syr) 100 meq 1X ONCE 07/01/20 08:45 07/01/20 08:49 DC 07/01/20 08:58 Sodium Chloride 1,000 ml @ 400 mls/hr Q2H30M PRN 07/01/20 11:30 07/01/20 23:29 DC Sodium Chloride (Normal Saline Flush) 3 ml QSHIFT PRN 06/30/20 10:45 Sodium Phosphate 20 mmol/Sodium Chloride 256.6667 ml @ 64.167 m... 1X ONCE 07/02/20 13:00 07/02/20 16:59 DC 07/02/20 13:26 Vancomycin HCl 1 gm/Sodium Chloride 250 ml @ 250 mls/hr 1X ONCE 06/30/20 06:45 06/30/20 07:44 DC 06/30/20 08:37 Current Medications Medications (Trade) Dose Ordered Sig/Sumit Route PRN Reason Start Time Stop Time Status Last Admin Dose Admin Potassium Chloride/Water 100 ml @ 100 mls/hr Q1H IV 07/03/20 11:00 07/03/20 12:59 DC 07/03/20 13:37 LAB Lab: Laboratory Tests Test 07/03/20 06:10 White Blood Count 8.6 x10^3/uL (4.0-11.0) Red Blood Count 2.54 x10^6/uL (3.50-5.40) L Hemoglobin 8.1 g/dL (12.0-15.5) L Hematocrit 24.5 % (36.0-47.0) L Mean Corpuscular Volume 97 fL (79-100) Mean Corpuscular Hemoglobin 32 pg (25-35) Mean Corpuscular Hemoglobin Concent 33 g/dL (31-37) Red Cell Distribution Width 15.0 % (11.5-14.5) H Platelet Count 167 x10^3/uL (140-400) Neutrophils (%) (Auto) 75 % (31-73) H Lymphocytes (%) (Auto) 16 % (24-48) L Monocytes (%) (Auto) 7 % (0-9) Eosinophils (%) (Auto) 3 % (0-3) Basophils (%) (Auto) 0 % (0-3) Neutrophils # (Auto) 6.4 x10^3/uL (1.8-7.7) Lymphocytes # (Auto) 1.4 x10^3/uL (1.0-4.8) Monocytes # (Auto) 0.6 x10^3/uL (0.0-1.1) Eosinophils # (Auto) 0.2 x10^3/uL (0.0-0.7) Basophils # (Auto) 0.0 x10^3/uL (0.0-0.2) Sodium Level 142 mmol/L (136-145) Potassium Level 3.3 mmol/L (3.5-5.1) L Chloride Level 111 mmol/L (98-107) H Carbon Dioxide Level 22 mmol/L (21-32) Anion Gap 9 (6-14) Blood Urea Nitrogen 18 mg/dL (7-20) Creatinine 1.4 mg/dL (0.6-1.0) H Estimated GFR (Cockcroft-Gault) 36.8 Glucose Level 84 mg/dL (70-99) Calcium Level 7.3 mg/dL (8.5-10.1) L Phosphorus Level 3.6 mg/dL (2.6-4.7) Magnesium Level 2.3 mg/dL (1.8-2.4) Laboratory Tests 07/03/20 06:10 Laboratory Tests 07/03/20 06:10 ASSESSMENT & PLAN A&P Plan as noted above This note was created using [employer] and may have omissions and/or errors due to 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 Justifications for Admission General Conditions Poss tachycardia?: Yes Justification for admission: Patient has tachycardia (> 100 beats per minute) which is not readily corrected by appropriate treatment within 12 to 24 hours. severe sepsis Other Justification Nutrition Consultation Dietary Evaluation: Recommendations by RD: Dietary education by RD, Increase Calorie Intake, Protein supplementation Comments: Continue w/diet as ordered: dysphagia I/thin liquids, renal REC Nepro supplements (mixed covarrubias) TID REC Ensure pudding (vanilla) BID Expected Outcomes/Goals: PO intake + bolus TFs to meet >75% est needs - not met, new goal established New goal 07/02: PO intake to meet >75% est needs Malnutrition Findings: Body Fat Depletion (Non Severe: Mild Depletion Weight Status: Appropriate POOL MCKEON MD Jul 03, 2020 14:10
--- NOTE | 2020-07-03 14:15 | PDOC ---
PROGRESS NOTES Date of Service DATE: 07/03/20 TIME: 14:14 Subjective Subjective SEEN IN FOLLOW UP OF ARF Objective Objective Vital Signs Date Time Temp Pulse Resp B/P (MAP) Pulse Ox O2 Delivery O2 Flow Rate FiO2 07/03/20 14:00 79 18 151/77 (101) 100 Room Air 07/03/20 12:00 98.7 98.7 Intake and Output 07/03/20 07:00 Intake Total 4327.29 ml Output Total 500 ml Balance 3827.29 ml Intake Oral 800 ml IV Total 2757.29 ml Blood Product IV Normal Saline Flush 770 ml Output Urine Total 500 ml Physical Exam Abdomen: Normal bowel sounds, Soft, No tenderness, No hepatosplenomegaly, No masses Heart: Regular rate, Normal S1, Normal S2, No murmurs, Gallops Extremities: No clubbing, No cyanosis, No edema, Normal pulses, No tenderness/swelling General: Alert Lungs: Clear to auscultation, Normal air movement Psych/Mental Status: Mental status NL, Mood NL Diagnosis RENAL FAILURE: Acute (Acute tubular necrosis) Assessment Assessment Problems Medical Problems: (1) HCAP (healthcare-associated pneumonia) Status: Acute (2) Weakness Status: Acute Plan Plan of Care RENAL FUNCTION IS BETTER. HOLDING DIALYSIS. REASSESS FOR NEED SUNDAY Comment Review of Relevant I have reviewed the following items isreal (where applicable) has been applied. Labs Laboratory Tests Test 07/02/20 06:00 07/03/20 06:10 Sodium Level 141 mmol/L (136-145) 142 mmol/L (136-145) Potassium Level 3.1 mmol/L (3.5-5.1) 3.3 mmol/L (3.5-5.1) Chloride Level 108 mmol/L (98-107) 111 mmol/L (98-107) Carbon Dioxide Level 27 mmol/L (21-32) 22 mmol/L (21-32) Anion Gap 6 (6-14) 9 (6-14) Blood Urea Nitrogen 19 mg/dL (7-20) 18 mg/dL (7-20) Creatinine 1.1 mg/dL (0.6-1.0) 1.4 mg/dL (0.6-1.0) Estimated GFR (Cockcroft-Gault) 48.6 36.8 Glucose Level 91 mg/dL (70-99) 84 mg/dL (70-99) Calcium Level 7.7 mg/dL (8.5-10.1) 7.3 mg/dL (8.5-10.1) Phosphorus Level 1.4 mg/dL (2.6-4.7) 3.6 mg/dL (2.6-4.7) Magnesium Level 1.6 mg/dL (1.8-2.4) 2.3 mg/dL (1.8-2.4) White Blood Count 8.6 x10^3/uL (4.0-11.0) Red Blood Count 2.54 x10^6/uL (3.50-5.40) Hemoglobin 8.1 g/dL (12.0-15.5) Hematocrit 24.5 % (36.0-47.0) Mean Corpuscular Volume 97 fL (79-100) Mean Corpuscular Hemoglobin 32 pg (25-35) Mean Corpuscular Hemoglobin Concent 33 g/dL (31-37) Red Cell Distribution Width 15.0 % (11.5-14.5) Platelet Count 167 x10^3/uL (140-400) Neutrophils (%) (Auto) 75 % (31-73) Lymphocytes (%) (Auto) 16 % (24-48) Monocytes (%) (Auto) 7 % (0-9) Eosinophils (%) (Auto) 3 % (0-3) Basophils (%) (Auto) 0 % (0-3) Neutrophils # (Auto) 6.4 x10^3/uL (1.8-7.7) Lymphocytes # (Auto) 1.4 x10^3/uL (1.0-4.8) Monocytes # (Auto) 0.6 x10^3/uL (0.0-1.1) Eosinophils # (Auto) 0.2 x10^3/uL (0.0-0.7) Basophils # (Auto) 0.0 x10^3/uL (0.0-0.2) Laboratory Tests Test 07/03/20 06:10 White Blood Count 8.6 x10^3/uL (4.0-11.0) Red Blood Count 2.54 x10^6/uL (3.50-5.40) Hemoglobin 8.1 g/dL (12.0-15.5) Hematocrit 24.5 % (36.0-47.0) Mean Corpuscular Volume 97 fL (79-100) Mean Corpuscular Hemoglobin 32 pg (25-35) Mean Corpuscular Hemoglobin Concent 33 g/dL (31-37) Red Cell Distribution Width 15.0 % (11.5-14.5) Platelet Count 167 x10^3/uL (140-400) Neutrophils (%) (Auto) 75 % (31-73) Lymphocytes (%) (Auto) 16 % (24-48) Monocytes (%) (Auto) 7 % (0-9) Eosinophils (%) (Auto) 3 % (0-3) Basophils (%) (Auto) 0 % (0-3) Neutrophils # (Auto) 6.4 x10^3/uL (1.8-7.7) Lymphocytes # (Auto) 1.4 x10^3/uL (1.0-4.8) Monocytes # (Auto) 0.6 x10^3/uL (0.0-1.1) Eosinophils # (Auto) 0.2 x10^3/uL (0.0-0.7) Basophils # (Auto) 0.0 x10^3/uL (0.0-0.2) Sodium Level 142 mmol/L (136-145) Potassium Level 3.3 mmol/L (3.5-5.1) Chloride Level 111 mmol/L (98-107) Carbon Dioxide Level 22 mmol/L (21-32) Anion Gap 9 (6-14) Blood Urea Nitrogen 18 mg/dL (7-20) Creatinine 1.4 mg/dL (0.6-1.0) Estimated GFR (Cockcroft-Gault) 36.8 Glucose Level 84 mg/dL (70-99) Calcium Level 7.3 mg/dL (8.5-10.1) Phosphorus Level 3.6 mg/dL (2.6-4.7) Magnesium Level 2.3 mg/dL (1.8-2.4) Microbiology 06/30/20 Blood Culture - Preliminary, Resulted NO GROWTH AFTER 3 DAYS 06/30/20 Urine Culture - Final, Complete 06/30/20 Antimicrobic Susceptibility - Final, Complete Medications Current Medications Sodium Chloride 500 ml @ 500 mls/hr 1X ONCE IV Last administered on 06/30/20at 04:00; Start 06/30/20 at 04:00; Stop 06/30/20 at 04:59; Status DC Ondansetron HCl (Zofran) 4 mg 1X ONCE IVP Last administered on 06/30/20at 04:45; Start 06/30/20 at 04:45; Stop 06/30/20 at 04:53; Status DC Vancomycin HCl 1 gm/Sodium Chloride 250 ml @ 250 mls/hr 1X ONCE IV Last administered on 06/30/20at 08:37; Start 06/30/20 at 06:45; Stop 06/30/20 at 07:44; Status DC Piperacillin Sod/ Tazobactam Sod 3.375 gm/Sodium Chloride 50 ml @ 100 mls/hr 1X ONCE IV Last administered on 06/30/20at 07:54; Start 06/30/20 at 06:30; Stop 06/30/20 at 06:59; Status DC Ondansetron HCl (Zofran) 4 mg PRN Q8HRS PRN IV NAUSEA/VOMITING; Start 06/30/20 at 07:00; Stop 07/01/20 at 06:59; Status DC Sodium Chloride 1,000 ml @ 75 mls/hr [id number] IV Last administered on 06/30/20at 08:40; Start 06/30/20 at 07:00; Stop 07/01/20 at 06:59; Status DC Acetaminophen (Tylenol) 650 mg PRN Q4HRS PRN PO FEVER > 100.3'F; Start 06/30/20 at 07:00; Stop 07/01/20 at 06:59; Status DC Piperacillin Sod/ Tazobactam Sod (Zosyn Per Pharmacy) 1 each PRN DAILY PRN MC SEE COMMENTS; Start 06/30/20 at 09:15 Norepinephrine Bitartrate 8 mg/ Dextrose 258 ml @ 11.61 mls/ hr CONT PRN IV PER PROTOCOL Last administered on 07/02/20at 13:30; Start 06/30/20 at 09:15 Piperacillin Sod/ Tazobactam Sod 2.25 gm/Sodium Chloride 50 ml @ 100 mls/hr Q6HRS IV Last administered on 07/03/20at 11:29; Start 06/30/20 at 12:00 Acetaminophen (Tylenol) 650 mg PRN Q6HRS PRN PO Headaches, Temp > 101.5'; Start 06/30/20 at 10:45; Stop 07/02/20 at 10:58; Status DC Ondansetron HCl (Zofran) 4 mg PRN Q6HRS PRN IVP NAUSEA/VOMITING; Start 06/30/20 at 10:45 Prochlorperazine (Compazine) 25 mg PRN Q12HR PRN [place] NAUSEA/VOMITING; Start 06/30/20 at 10:45 Famotidine (Pepcid Vial) 20 mg DAILY IVP Last administered on 07/01/20at 07:35; Start 06/30/20 at 12:00; Stop 07/02/20 at 08:29; Status DC Info (Icu Electrolyte Protocol) 1 ea DAILY MC Last administered on 07/02/20at 08:31; Start 07/01/20 at 09:00 Heparin Sodium (Porcine) (Heparin Sodium) 5,000 unit Q8HRS SQ Last administered on 07/03/20at 13:54; Start 06/30/20 at 14:00 Sodium Chloride (Normal Saline Flush) 3 ml QSHIFT PRN IV AFTER MEDS AND BLOOD DRAWS; Start 06/30/20 at 10:45 Sodium Chloride 1,000 ml @ 100 mls/hr Q10H IV Last administered on 07/03/20at 02:47; Start 06/30/20 at 10:45 Hydromorphone HCl (Dilaudid) 0.2 mg PRN Q1HR PRN IV PAIN; Start 06/30/20 at 10:45; Status UNV Bisacodyl (Dulcolax Supp) 10 mg PRN DAILY PRN [place] CONSTIPATION; Start 06/30/20 at 10:45 Sodium Chloride 1,000 ml @ 1,650 mls/hr Q37M IV Last administered on 06/30/20at 23:24; Start 06/30/20 at 11:00; Stop 06/30/20 at 12:00; Status DC Sodium Chloride 500 ml @ 1,000 mls/hr PRN Q30MIN PRN IV SEE COMMENTS; Start 06/30/20 at 11:00 Norepinephrine Bitartrate 8 mg/ Dextrose 258 ml @ 0 mls/hr CONT PRN IV SEE I/O RECORD; Start 06/30/20 at 11:00; Status UNV Magnesium Sulfate/ Dextrose 100 ml @ 100 mls/hr 1X ONCE IV Last administered on 06/30/20at 23:18; Start 06/30/20 at 17:30; Stop 06/30/20 at 18:29; Status DC Potassium Chloride/Water 100 ml @ 100 mls/hr 1X ONCE IV Last administered on 07/01/20at 07:43; Start 07/01/20 at 07:30; Stop 07/01/20 at 08:29; Status DC Sodium Bicarbonate (Sodium Bicarb Adult 8.4% Syr) 100 meq 1X ONCE IV Last administered on 07/01/20at 08:58; Start 07/01/20 at 08:45; Stop 07/01/20 at 08:49; Status DC Sodium Chloride 1,000 ml @ 1,000 mls/hr Q1H PRN IV hypotension; Start 07/01/20 at 11:30; Stop 07/01/20 at 17:29; Status DC Sodium Chloride 1,000 ml @ 400 mls/hr Q2H30M PRN IV PATENCY; Start 07/01/20 at 11:30; Stop 07/01/20 at 23:29; Status DC Info (PHARMACY MONITORING -- do not chart) 1 each PRN DAILY PRN MC SEE COMMENTS; Start 07/01/20 at 11:30; Stop 07/03/20 at 10:32; Status DC Dronabinol (Marinol) 2.5 mg BIDACLD PO Last administered on 07/03/20at 10:59; Start 07/01/20 at 16:30 Lidocaine HCl (Buffered Lidocaine 1%) 3 ml STK-MED ONCE .ROUTE ; Start 07/01/20 at 11:44; Stop 07/01/20 at 11:45; Status DC Heparin Sodium (Porcine) (Heparin Sodium) 10,000 unit STK-MED ONCE .ROUTE ; Start 07/01/20 at 12:10; Stop 07/01/20 at 12:10; Status DC Acetaminophen (Tylenol) 650 mg PRN Q4HRS PRN PO TEMP OVER 100.4F OR MILD PAIN; Start 07/01/20 at 12:30 Carvedilol (Coreg) 6.25 mg BIDWMEALS PO ; Start 07/01/20 at 17:00 Ferrous Sulfate (Feosol) 325 mg DAILY PO Last administered on 07/03/20at 08:57; Start 07/01/20 at 13:00 Furosemide (Lasix) 40 mg DAILY PO ; Start 07/02/20 at 09:00; Status UNV Lorazepam (Ativan) 0.5 mg PRN Q4HRS PRN PO ANXIETY / AGITATION; Start 07/01/20 at 12:30 Oxycodone/ Acetaminophen (Percocet 5/325) 1 tab PRN Q4HRS PRN PO MODERATE PAIN, SEVERE PAIN; Start 07/01/20 at 12:30 Senna/Docusate Sodium (Senna Plus) 2 tab PRN BID PRN PO CONSTIPATION; Start 07/01/20 at 12:30 Sodium Bicarbonate (Sodium Bicarbonate) 1,300 mg TID PO ; Start 07/01/20 at 14:00; Stop 07/01/20 at 18:09; Status DC Aripiprazole (Abilify) 30 mg DAILY PO Last administered on 07/03/20at 08:57; Start 07/01/20 at 13:00; Stop 07/03/20 at 14:00; Status DC Bupropion HCl (Wellbutrin Xl) 300 mg DAILY PO Last administered on 07/03/20at 08:57; Start 07/01/20 at 13:00 Calcium/Vitamin D (Oscal D 500mg/ 200uts) 1 tab BIDWMEALS PO Last administered on 07/03/20at 08:57; Start 07/01/20 at 17:00 Citalopram Hydrobromide (CeleXA) 20 mg DAILY PO Last administered on 07/03/20at 08:57; Start 07/01/20 at 13:00; Stop 07/03/20 at 14:00; Status DC Clonazepam (KlonoPIN) 1 mg BID PO Last administered on 07/03/20at 08:58; Start 07/01/20 at 13:00; Stop 07/03/20 at 13:45; Status DC Gabapentin (Neurontin) 1,200 mg QHS PO Last administered on 07/02/20at 21:12; Start 07/01/20 at 21:00 Levothyroxine Sodium (Synthroid) 100 mcg DAILY06 PO Last administered on 07/03/20at 06:19; Start 07/01/20 at 13:00 Amylase/Lipase/ Protease (Zenpep 10,000) 1 cap TIDWMEALS PO Last administered on 07/03/20 08:58; Start 07/01/20 at 17:00 Mirtazapine (Remeron) 30 mg QHS PO Last administered on 07/02/20at 21:12; Start 07/01/20 at 21:00; Stop 07/03/20 at 14:00; Status DC Multivitamins (Thera M Plus) 1 tab DAILY PO Last administered on 07/03/20at 08:57; Start 07/01/20 at 13:00 Pantoprazole Sodium (Protonix) 40 mg BIDAC PO Last administered on 07/03/20at 08:57; Start 07/01/20 at 16:30 Ondansetron HCl (Zofran Odt) 4 mg Q8HRS PRN PO NAUSEA/VOMITING; Start 07/01/20 at 12:30 Non-Formulary Medication (Selenium ) 0.5 cap DAILY PO ; Start 07/02/20 at 09:00; Stop 07/01/20 at 12:31; Status DC Lidocaine HCl (Buffered Lidocaine 1%) 6 ml 1X ONCE INJ Last administered on 07/01/20at 12:49; Start 07/01/20 at 12:30; Stop 07/01/20 at 12:32; Status DC Heparin Sodium (Porcine) (Heparin Sodium) 2,500 unit 1X ONCE INT CAT Last administered on 07/01/20at 12:49; Start 07/01/20 at 12:30; Stop 07/01/20 at 12:32; Status DC Digoxin (Lanoxin) 500 mcg 1X ONCE IV Last administered on 07/01/20at 16:44; Start 07/01/20 at 16:00; Stop 07/01/20 at 16:01; Status DC Aspirin (Ecotrin) 81 mg [id number] PO Last administered on 07/03/20at 08:58; Start 07/02/20 at 08:00 Potassium Chloride/Water 100 ml @ 100 mls/hr Q1H IV Last administered on 07/02/20at 09:03; Start 07/02/20 at 07:15; Stop 07/02/20 at 09:14; Status DC Magnesium Sulfate 100 ml @ 25 mls/hr 1X ONCE IV Last administered on 07/02/20at 07:15; Start 07/02/20 at 07:15; Stop 07/02/20 at 11:14; Status DC Sodium Phosphate 20 mmol/Sodium Chloride 256.6667 ml @ 62.5 mls/hr 1X ONCE IV ; Start 07/02/20 at 11:00; Stop 07/02/20 at 15:06; Status UNV Sodium Phosphate 20 mmol/Sodium Chloride 256.6667 ml @ 64.167 m... 1X ONCE IV Last administered on 07/02/20at 13:26; Start 07/02/20 at 13:00; Stop 07/02/20 at 16:59; Status DC Potassium Chloride/Water 100 ml @ 100 mls/hr Q1H IV Last administered on 07/03/20at 13:37; Start 07/03/20 at 11:00; Stop 07/03/20 at 12:59; Status DC Clonazepam (KlonoPIN) 1 mg PRN BID PRN PO ANXIETY / AGITATION; Start 07/03/20 at 13:45 Aripiprazole (Abilify) 10 mg DAILY PO ; Start 07/04/20 at 09:00 Citalopram Hydrobromide (CeleXA) 10 mg DAILY PO ; Start 07/04/20 at 09:00 Mirtazapine (Remeron) 15 mg QHS PO ; Start 07/03/20 at 21:00 Active Scripts Active Percocet 5-325 Mg Tablet (Oxycodone/Acetaminophen) 1 Each Tablet 1 Tab PO PRN Q4HRS PRN 6 Days Tylenol (Acetaminophen) 325 Mg Tablet 650 Mg PO PRN Q4HRS PRN 30 Days Ativan (Lorazepam) 0.5 Mg Tablet 0.5 Mg PO PRN Q4HRS PRN 15 Days Furosemide 40 Mg Tablet 40 Mg PO DAILY 30 Days Senna-Time S Tablet (Sennosides/Docusate Sodium) 1 Each Tablet 2 Tab PO PRN BID PRN 30 Days Enoxaparin Sodium 30 Mg/0.3 Ml Disp.syrin 30 Mg SQ Q24H 14 Days Reported Selenium 200 Mcg Capsule 0.5 Cap PO DAILY 30 Days Marcia Stewart 36,000 Units Capsule (Lipase/Protease/Amylase) 1 Each Capsule.dr 1 Each PO TIDAC Zofran (Ondansetron Hcl) 4 Mg Tablet 1 Tab PO Q8HRS Mirtazapine 30 Mg Tablet 1 Tab PO QHS Levothyroxine (Levothyroxine Sodium) 100 Mcg Capsule 100 Mcg PO DAILY Ferrous Sulfate 325 Mg Tablet 1 Tab PO DAILY Vitamin D2 (Ergocalciferol (Vitamin D2)) 1,250 Mcg Capsule 1,250 Mcg PO DAILY Clonazepam 1 Mg Tablet 1 Mg PO BID Carvedilol (Carvedilol) 6.25 Mg Tablet 6.25 Mg PO BIDWMEALS Wellbutrin Xl (Bupropion Hcl) 300 Mg Tab.er.24h 1 Tab PO DAILY Abilify (Aripiprazole) 30 Mg Tablet 1 Tab PO DAILY 30 Days Calcium + Vitamin D Tablet (Calcium Carbonate/Vitamin D3) 1 Each Tablet 2 Each PO DAILY Multivitamins (Multivitamin) 1 Each Tablet 1 Tab PO DAILY Sodium Bicarbonate 650 Mg Tablet 2 Tab PO TID Omeprazole 40 Mg Capsule.dr 40 Mg PO BID Gabapentin 600 Mg Tablet 1,200 Mg PO BID Citalopram Hbr (Citalopram Hydrobromide) 40 Mg Tablet 20 Mg PO DAILY Vitals/I & O Vital Sign - Last 24 Hours 07/02/20 07/02/20 07/02/20 07/02/20 15:00 16:00 16:00 16:45 Temp 98.3 98.3 Pulse 77 75 86 Resp 18 18 B/P (MAP) 106/59 (75) 118/63 (81) 119/64 (82) Pulse Ox 99 99 O2 Delivery Room Air Room Air Room Air 07/02/20 07/02/20 07/02/20 07/02/20 17:00 18:00 19:00 20:00 Temp 98.6 98.6 Pulse 85 82 82 68 Resp 20 20 20 16 B/P (MAP) 102/56 (71) 102/65 (77) 104/51 (68) 104/55 (71) Pulse Ox 99 99 98 99 O2 Delivery Room Air Room Air Room Air Room Air 07/02/20 07/02/20 07/02/20 07/02/20 20:00 21:00 22:00 23:00 Pulse 68 68 70 Resp 18 17 18 B/P (MAP) 115/60 (78) 133/63 (86) 103/61 (75) Pulse Ox 99 98 99 O2 Delivery Room Air Room Air Room Air Room Air 07/03/20 07/03/20 07/03/20 07/03/20 00:00 00:00 00:30 01:00 Temp 98.8 98.8 Pulse 70 72 Resp 29 26 20 B/P (MAP) 113/58 (76) 136/71 (92) 97/51 (66) Pulse Ox 99 100 99 O2 Delivery Room Air Room Air Room Air Room Air 07/03/20 07/03/20 07/03/20 07/03/20 01:30 02:00 03:00 03:30 Pulse 72 72 72 74 Resp 22 20 25 25 B/P (MAP) 98/56 (70) 96/66 (76) 107/58 (74) 104/59 (74) Pulse Ox 100 100 100 99 O2 Delivery Room Air Room Air Room Air Room Air 07/03/20 07/03/20 07/03/20 07/03/20 04:00 04:00 05:00 06:00 Temp 98.6 98.6 Pulse 76 76 82 Resp 29 B/P (MAP) 110/66 (81) 113/64 (80) 129/59 (82) Pulse Ox 99 99 99 O2 Delivery Room Air Room Air Room Air Room Air 07/03/20 07/03/20 07/03/20 07/03/20 07:00 08:00 08:00 09:00 Temp 98.6 98.6 Pulse 74 80 69 Resp 22 B/P (MAP) 115/63 (80) 127/60 (82) 123/70 (87) Pulse Ox 99 99 99 O2 Delivery Room Air Room Air Room Air Room Air 07/03/20 07/03/20 07/03/20 07/03/20 11:00 12:00 12:00 13:00 Temp 98.7 98.7 Pulse 71 72 73 Resp 22 22 B/P (MAP) 85/52 (63) 105/63 (77) 124/64 (84) Pulse Ox 99 100 100 O2 Delivery Room Air Room Air Room Air Room Air 07/03/20 14:00 Pulse 79 Resp 18 B/P (MAP) 151/77 (101) Pulse Ox 100 O2 Delivery Room Air Intake and Output 07/02/20 07/02/20 07/03/20 15:00 23:00 07:00 Intake Total 900 ml 2557.29 ml 870 ml Output Total 165 ml 115 ml 220 ml Balance 735 ml 2442.29 ml 650 ml Justifications for Admission General Conditions Poss tachycardia?: Yes Justification for admission: Patient has tachycardia (> 100 beats per minute) which is not readily corrected by appropriate treatment within 12 to 24 hours. severe sepsis Other Justification Nutrition Consultation Dietary Evaluation: Recommendations by RD: Dietary education by RD, Increase Calorie Intake, Protein supplementation Comments: Continue w/diet as ordered: dysphagia I/thin liquids, renal REC Nepro supplements (mixed covarrubias) TID REC Ensure pudding (vanilla) BID Expected Outcomes/Goals: PO intake + bolus TFs to meet >75% est needs - not met, new goal established New goal 07/02: PO intake to meet >75% est needs Malnutrition Findings: Body Fat Depletion (Non Severe: Mild Depletion Weight Status: Appropriate ISAAC REIS MD Jul 03, 2020 14:15
--- NOTE | 2020-07-03 16:15 | PDOC ---
PROGRESS NOTES Date of Service: DATE: 07/03/20 TIME: 16:15 Subjective Subjective Somnolent, continues to need pressor support Objective Objective Vital Signs Date Time Temp Pulse Resp B/P (MAP) Pulse Ox O2 Delivery O2 Flow Rate FiO2 07/03/20 14:00 79 18 151/77 (101) 100 Room Air 07/03/20 12:00 98.7 98.7 Intake and Output 07/03/20 07:00 Intake Total 4327.29 ml Output Total 500 ml Balance 3827.29 ml Intake Oral 800 ml IV Total 2757.29 ml Blood Product IV Normal Saline Flush 770 ml Output Urine Total 500 ml Physical Exam Abdomen: Normal bowel sounds, Soft, No tenderness Heart: Regular rate, Normal S1, Normal S2, No murmurs Extremities: No clubbing, No edema, No tenderness/swelling General: Alert HEENT: Atraumatic Lungs: Clear to auscultation, Normal air movement Psych/Mental Status: Mood NL Diagnosis RENAL FAILURE: Acute (Acute tubular necrosis) Assessment Assessment 1. Sepsis/shock with HCAP and UTI. Covid negative. Patient continues to need pressor support. Continue antibiotics per ID team. 2. NIC on CKD: unclear baseline. receiving HD, nephrology following 3. Weakness/deconditioning/debility 4. Acute on chronic diastolic CHF: induced by sepsis and severe NIC, better compensated. 5. PAFIB with RVR: Newly diagnosed, presently back in sinus rhythm. EF and WM nml 6. Mild troponin elevation: type 2 peaked at 0.05 with above culprits. We will consider ischemic work-up as an outpatient. 7. Hypothyroidism: TSH on goal 8. 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 Normocytic anemia Plan Plan of Care Problems Medical Problems: (1) HCAP (healthcare-associated pneumonia) Status: Acute (2) Weakness Status: Acute Comment Review of Relevant I have reviewed the following items isreal (where applicable) has been applied. Labs Laboratory Tests Test 07/03/20 06:10 White Blood Count 8.6 x10^3/uL (4.0-11.0) Red Blood Count 2.54 x10^6/uL (3.50-5.40) Hemoglobin 8.1 g/dL (12.0-15.5) Hematocrit 24.5 % (36.0-47.0) Mean Corpuscular Volume 97 fL (79-100) Mean Corpuscular Hemoglobin 32 pg (25-35) Mean Corpuscular Hemoglobin Concent 33 g/dL (31-37) Red Cell Distribution Width 15.0 % (11.5-14.5) Platelet Count 167 x10^3/uL (140-400) Neutrophils (%) (Auto) 75 % (31-73) Lymphocytes (%) (Auto) 16 % (24-48) Monocytes (%) (Auto) 7 % (0-9) Eosinophils (%) (Auto) 3 % (0-3) Basophils (%) (Auto) 0 % (0-3) Neutrophils # (Auto) 6.4 x10^3/uL (1.8-7.7) Lymphocytes # (Auto) 1.4 x10^3/uL (1.0-4.8) Monocytes # (Auto) 0.6 x10^3/uL (0.0-1.1) Eosinophils # (Auto) 0.2 x10^3/uL (0.0-0.7) Basophils # (Auto) 0.0 x10^3/uL (0.0-0.2) Sodium Level 142 mmol/L (136-145) Potassium Level 3.3 mmol/L (3.5-5.1) Chloride Level 111 mmol/L (98-107) Carbon Dioxide Level 22 mmol/L (21-32) Anion Gap 9 (6-14) Blood Urea Nitrogen 18 mg/dL (7-20) Creatinine 1.4 mg/dL (0.6-1.0) Estimated GFR (Cockcroft-Gault) 36.8 Glucose Level 84 mg/dL (70-99) Calcium Level 7.3 mg/dL (8.5-10.1) Phosphorus Level 3.6 mg/dL (2.6-4.7) Magnesium Level 2.3 mg/dL (1.8-2.4) Microbiology 06/30/20 Blood Culture - Preliminary, Resulted NO GROWTH AFTER 3 DAYS 06/30/20 Urine Culture - Final, Complete 06/30/20 Antimicrobic Susceptibility - Final, Complete Medications Current Medications Aripiprazole (Abilify) 10 mg DAILY PO ; Start 07/04/20 at 09:00 Citalopram Hydrobromide (CeleXA) 10 mg DAILY PO ; Start 07/04/20 at 09:00 Clonazepam (KlonoPIN) 1 mg PRN BID PRN PO ANXIETY / AGITATION; Start 07/03/20 at 13:45 Mirtazapine (Remeron) 15 mg QHS PO ; Start 07/03/20 at 21:00 Potassium Chloride/Water 100 ml @ 100 mls/hr Q1H IV Last administered on 07/03/20at 13:37; Start 07/03/20 at 11:00; Stop 07/03/20 at 12:59; Status DC Vitals/I & O Vital Sign - Last 24 Hours 07/02/20 07/02/20 07/02/20 07/02/20 16:45 17:00 18:00 19:00 Temp 98.6 98.6 Pulse 86 85 82 82 Resp 20 20 20 B/P (MAP) 119/64 (82) 102/56 (71) 102/65 (77) 104/51 (68) Pulse Ox 99 99 98 O2 Delivery Room Air Room Air Room Air 07/02/20 07/02/20 07/02/20 07/02/20 20:00 20:00 21:00 22:00 Pulse 68 68 68 Resp 16 18 17 B/P (MAP) 104/55 (71) 115/60 (78) 133/63 (86) Pulse Ox 99 99 98 O2 Delivery Room Air Room Air Room Air Room Air 07/02/20 07/03/20 07/03/20 07/03/20 23:00 00:00 00:00 00:30 Pulse 70 70 Resp 18 29 26 B/P (MAP) 103/61 (75) 113/58 (76) 136/71 (92) Pulse Ox 99 99 100 O2 Delivery Room Air Room Air Room Air Room Air 07/03/20 07/03/20 07/03/20 07/03/20 01:00 01:30 02:00 03:00 Temp 98.8 98.8 Pulse 72 72 72 72 Resp 20 22 20 25 B/P (MAP) 97/51 (66) 98/56 (70) 96/66 (76) 107/58 (74) Pulse Ox 99 100 100 100 O2 Delivery Room Air Room Air Room Air Room Air 07/03/20 07/03/20 07/03/20 07/03/20 03:30 04:00 04:00 05:00 Temp 98.6 98.6 Pulse 74 76 76 Resp 25 23 26 B/P (MAP) 104/59 (74) 110/66 (81) 113/64 (80) Pulse Ox 99 99 99 O2 Delivery Room Air Room Air Room Air Room Air 07/03/20 07/03/20 07/03/20 07/03/20 06:00 07:00 08:00 08:00 Temp 98.6 98.6 Pulse 82 74 80 Resp 29 22 24 B/P (MAP) 129/59 (82) 115/63 (80) 127/60 (82) Pulse Ox 99 99 99 O2 Delivery Room Air Room Air Room Air Room Air 07/03/20 07/03/20 07/03/20 07/03/20 09:00 11:00 12:00 12:00 Temp 98.7 98.7 Pulse 69 71 72 Resp 22 22 22 B/P (MAP) 123/70 (87) 85/52 (63) 105/63 (77) Pulse Ox 99 99 100 O2 Delivery Room Air Room Air Room Air Room Air 07/03/20 07/03/20 13:00 14:00 Pulse 73 79 Resp 22 18 B/P (MAP) 124/64 (84) 151/77 (101) Pulse Ox 100 100 O2 Delivery Room Air Room Air Intake and Output 07/02/20 07/02/20 07/03/20 15:00 23:00 07:00 Intake Total 900 ml 2557.29 ml 870 ml Output Total 165 ml 115 ml 220 ml Balance 735 ml 2442.29 ml 650 ml MARY FULLER MD Jul 03, 2020 16:15
[2020-07-03] MEDS: GABAPENTIN 400 MG CAPSULE. PO SCH (21:07)
[2020-07-03] MEDS: MIRTAZAPINE 15 MG TABLET PO SCH (21:09)
[2020-07-04] VITALS (17 sets, daily range): BP systolic 86–147; BP diastolic 45–88
[2020-07-04] MEDS: PIPERACILLIN/TAZOBACTAM 2.25 GM in IV NORMAL SALINE 50ML 50 ML IV SCH ×2 (00:30→06:14)
[2020-07-04] MEDS: IV NORMAL SALINE 1000ML BAG 1,000 ML IV SCH ×2 (01:09→21:25)
[2020-07-04] MEDS: LEVOTHYROXINE 100 MCG TABLET PO SCH (06:14)
[2020-07-04] MEDS: HEPARIN for SUB-Q USE 5,000 UNIT/ML VIAL. SQ SCH ×3 (06:15→21:24)
--- NOTE | 2020-07-04 06:18 | PDOC ---
PULMONARY PROGRESS NOTES DATE: 07/04/20 TIME: 06:18 Subjective Patient remains on room air is tired no sob no cough no pain Continues on levo low dose Vitals Vital Signs Date Time Temp Pulse Resp B/P (MAP) Pulse Ox O2 Delivery O2 Flow Rate FiO2 07/04/20 05:00 78 20 147/65 (92) 100 Room Air 07/04/20 02:00 98.7 98.7 ROS: No Nausea, No Chest Pain, No Abdominal Pain, No Increase Cough General: Alert, Oriented X4 HEENT: Other (nc at perrl nose throat clear) Lungs: Crackles Cardiovascular: S1, S2 Abdomen: Soft Neuro Exam: Alert Extremities: No Edema Skin: Warm, Dry Labs Laboratory Tests Test 07/03/20 06:10 White Blood Count 8.6 x10^3/uL (4.0-11.0) Red Blood Count 2.54 x10^6/uL (3.50-5.40) Hemoglobin 8.1 g/dL (12.0-15.5) Hematocrit 24.5 % (36.0-47.0) Mean Corpuscular Volume 97 fL (79-100) Mean Corpuscular Hemoglobin 32 pg (25-35) Mean Corpuscular Hemoglobin Concent 33 g/dL (31-37) Red Cell Distribution Width 15.0 % (11.5-14.5) Platelet Count 167 x10^3/uL (140-400) Neutrophils (%) (Auto) 75 % (31-73) Lymphocytes (%) (Auto) 16 % (24-48) Monocytes (%) (Auto) 7 % (0-9) Eosinophils (%) (Auto) 3 % (0-3) Basophils (%) (Auto) 0 % (0-3) Neutrophils # (Auto) 6.4 x10^3/uL (1.8-7.7) Lymphocytes # (Auto) 1.4 x10^3/uL (1.0-4.8) Monocytes # (Auto) 0.6 x10^3/uL (0.0-1.1) Eosinophils # (Auto) 0.2 x10^3/uL (0.0-0.7) Basophils # (Auto) 0.0 x10^3/uL (0.0-0.2) Sodium Level 142 mmol/L (136-145) Potassium Level 3.3 mmol/L (3.5-5.1) Chloride Level 111 mmol/L (98-107) Carbon Dioxide Level 22 mmol/L (21-32) Anion Gap 9 (6-14) Blood Urea Nitrogen 18 mg/dL (7-20) Creatinine 1.4 mg/dL (0.6-1.0) Estimated GFR (Cockcroft-Gault) 36.8 Glucose Level 84 mg/dL (70-99) Calcium Level 7.3 mg/dL (8.5-10.1) Phosphorus Level 3.6 mg/dL (2.6-4.7) Magnesium Level 2.3 mg/dL (1.8-2.4) Medications Active Scripts Medications Dose Route/Sig Max Daily Dose Days Date Category Percocet 5-325 Mg Tablet (Oxycodone/Acetaminophen) 1 Each Tablet 1 Tab PO PRN Q4HRS PRN 6 09/17/18 Rx Tylenol (Acetaminophen) 325 Mg Tablet 650 Mg PO PRN Q4HRS PRN 30 09/17/18 Rx Ativan (Lorazepam) 0.5 Mg Tablet 0.5 Mg PO PRN Q4HRS PRN 15 09/17/18 Rx Furosemide 40 Mg Tablet 40 Mg PO DAILY 30 09/17/18 Rx Senna-Time S Tablet (Sennosides/Docusate Sodium) 1 Each Tablet 2 Tab PO PRN BID PRN 30 09/17/18 Rx Enoxaparin Sodium 30 Mg/0.3 Ml Disp.syrin 30 Mg SQ Q24H 14 09/17/18 Rx Calcium + Vitamin D Tablet (Calcium Carbonate/Vitamin D3) 1 Each Tablet 2 Each PO DAILY 09/14/18 Reported Multivitamins (Multivitamin) 1 Each Tablet 1 Tab PO DAILY 09/14/18 Reported Sodium Bicarbonate 650 Mg Tablet 2 Tab PO TID 09/14/18 Reported Levothyroxine Sodium 100 Mcg Tablet 100 Mcg PO DAILYAC 05/02/15 Reported Abilify (Aripiprazole) 10 Mg Tablet 2 Tab PO HS 05/01/15 Reported Wellbutrin Sr (Bupropion Hcl) 150 Mg Tablet.er 150 Mg PO DAILY 05/01/15 Reported Omeprazole 40 Mg Capsule.dr 40 Mg PO BID 10/13/13 Reported Gabapentin 600 Mg Tablet 1,200 Mg PO BID 10/13/13 Reported Mirtazapine 30 Mg Tablet 30 Mg PO HS 10/13/13 Reported Citalopram Hbr (Citalopram Hydrobromide) 40 Mg Tablet 20 Mg PO DAILY 10/13/13 Reported Comments CXR IMPRESSION: 1. Left lung base and left hilar airspace opacities likely consolidative process as pneumonia. 2. Support lines/tubes as above. ECHO <Conclusion> The left ventricular systolic function is normal and the ejection fraction is within normal range. The Ejection Fraction is 60-65%. There is normal LV segmental wall motion. There is moderate to severe concentric left ventricular hypertrophy. Doppler and Color Flow revealed mild aortic regurgitation. Impression . IMPRESSION: 1. Acute hypoxic respiratory failure secondary to combination of pneumonia and septic shock. 2. Septic shock, likely source is pneumonia and a component of volume depletion as well. 3. Acute kidney injury, likely component of hypovolemia. 4. Severe protein-calorie malnutrition. 5. No significant tobacco history. Plan . RECOMMENDATIONS: 02 titration currently on room air Follow infectious disease recommendations in regards to antibiotics, cultures growing KLEBSIELLA PNEUMONIAE in urine Continue Marinol for appetite Await COVID-19 results, continue isolation precautions Follow speech recommendations, continue dysphagia diet, aspiration precaution elevate hob Follow cardiology recommendations, echocardiogram reviewed EF within normal limits Continue vasopressors as needed to keep MAP 65, remains on Levophed Follow nephrology recommendations, hemodialysis DVT/GI prophylaxis Discussed with EBONI COTTER MD Jul 04, 2020 06:18
[2020-07-04 07:04] LABS: BASO % 1 % (0-3); EOS # 0.2 x10^3/uL (0.0-0.7); EOS % 4 % (0-3); HEMATOCRIT 25.8 % (36.0-47.0); HEMOGLOBIN 8.3 g/dL (12.0-15.5); LYMPH # 0.9 x10^3/uL (1.0-4.8); LYMPH % 17 % (24-48); MEAN CORPUSCULAR HEMOGLOBIN 31 pg (25-35); MEAN CORPUSCULAR HGB CONC 32 g/dL (31-37); MEAN CORPUSCULAR VOLUME 98 fL (79-100); MONO # 0.4 x10^3/uL (0.0-1.1); MONO % 8 % (0-9); NEUT # 3.8 x10^3/uL (1.8-7.7); NEUT % 71 % (31-73); PLATELET COUNT 133 x10^3/uL (140-400); RED BLOOD COUNT 2.64 x10^6/uL (3.50-5.40); RED CELL DISTRIBUTION WIDTH 14.8 % (11.5-14.5); WHITE BLOOD COUNT 5.5 x10^3/uL (4.0-11.0)
[2020-07-04 07:25] LABS: ALBUMIN 1.2 g/dL (3.4-5.0); ALBUMIN/GLOBULIN RATIO 0.3 (1.0-1.7); CALCIUM 7.9 mg/dL (8.5-10.1); CREATININE 1.3 mg/dL (0.6-1.0); TOTAL BILIRUBIN 0.2 mg/dL (0.2-1.0); TOTAL PROTEIN 4.7 g/dL (6.4-8.2)
[2020-07-04] MEDS: CARVEDILOL 6.25 MG TABLET. PO SCH ×2 (07:41→17:36)
[2020-07-04] MEDS: LIPASE/PROTEAS/AMYLAS 10/32/42 CAPSULE.DR. PO SCH ×3 (07:51→17:37)
[2020-07-04] MEDS: ASPIRIN ENTERIC COATED 81 MG TABLET.DR. PO SCH (07:51)
[2020-07-04] MEDS: PANTOPRAZOLE 40 MG TABLET.DR. PO SCH ×2 (07:51→17:36)
[2020-07-04] MEDS: ARIPiprazole 5 MG TABLET PO SCH (07:51)
[2020-07-04] MEDS: buPROPion XL 150 MG TAB.ER.24H. PO SCH (07:51)
[2020-07-04] MEDS: MULTIVITAMIN with MINERAL TABLET. PO SCH (07:51)
[2020-07-04] MEDS: CITALOPRAM 10 MG TABLET. PO SCH (07:51)
[2020-07-04] MEDS: CALCIUM CARB/VIT D3 500/200 TABLET. PO SCH ×2 (07:51→17:35)
[2020-07-04] MEDS: ELECTROLYTE (ICU) PROTOCOL. MC SCH (07:52)
[2020-07-04] MEDS: FERROUS SULFATE 325 MG TABLET. PO SCH (07:52)
--- NOTE | 2020-07-04 10:37 | PDOC ---
Infectious Disease Note Subjective: Subjective Patient without complaints feels better Off Levophed Vital Signs: Vital Signs Vital Signs Date Time Temp Pulse Resp B/P (MAP) Pulse Ox O2 Delivery O2 Flow Rate FiO2 07/04/20 08:00 Room Air 07/04/20 08:00 98.1 87 20 96/69 (78) 99 98.1 Physical Exam: PHYSICAL EXAM GENERAL: Alert, awake, weak-appearing female, lying in bed comfortably, in no acute distress, answers most of the questions. HEENT: Normocephalic, atraumatic, anicteric. NECK: Supple. Right IJ clean LUNGS: Decreased breath sounds at the bases. HEART: S1, S2. ABDOMEN: Soft, nontender, bowel sounds present. EXTREMITIES: No edema, no cyanosis. DERMATOLOGIC: Mild skin breakdown on the right lower extremity, superficial, not infected. NEUROLOGIC: Generalized weakness, somewhat confused, alert, awake. MUSCULOSKELETAL: No joint swelling. Weakness present. Left upper extremity PICC line clean Medications: Inpatient Meds: Current Medications Medications (Trade) Dose Ordered Sig/Sumit Start Time Stop Time Status Last Admin Dose Admin Acetaminophen (Tylenol) 650 mg PRN Q4HRS PRN 07/01/20 12:30 Amylase/Lipase/ Protease (Zenpep 10,000) 1 cap TIDWMEALS 07/01/20 17:00 07/04/20 07:51 1 CAP Aripiprazole (Abilify) 10 mg DAILY 07/04/20 09:00 07/04/20 07:51 10 MG Aspirin (Ecotrin) 81 mg DAILYWBKFT 07/02/20 08:00 07/04/20 07:51 81 MG Bisacodyl (Dulcolax Supp) 10 mg PRN DAILY PRN 06/30/20 10:45 Bupropion HCl (Wellbutrin Xl) 300 mg DAILY 07/01/20 13:00 07/04/20 07:51 300 MG Calcium/Vitamin D (Oscal D 500mg/ 200uts) 1 tab BIDWMEALS 07/01/20 17:00 07/04/20 07:51 1 TAB Carvedilol (Coreg) 6.25 mg BIDWMEALS 07/01/20 17:00 Citalopram Hydrobromide (CeleXA) 10 mg DAILY 07/04/20 09:00 07/04/20 07:51 10 MG Clonazepam (KlonoPIN) 1 mg PRN BID PRN 07/03/20 13:45 07/03/20 21:26 1 MG Digoxin (Lanoxin) 500 mcg 1X ONCE 07/01/20 16:00 07/01/20 16:01 DC 07/01/20 16:44 500 MCG Dronabinol (Marinol) 2.5 mg BIDACLD 07/01/20 16:30 07/03/20 17:17 2.5 MG Famotidine (Pepcid Vial) 20 mg DAILY 06/30/20 12:00 07/02/20 08:29 DC 07/01/20 07:35 20 MG Ferrous Sulfate (Feosol) 325 mg DAILY 07/01/20 13:00 07/04/20 07:52 325 MG Furosemide (Lasix) 40 mg DAILY 07/02/20 09:00 UNV Gabapentin (Neurontin) 1,200 mg QHS 07/01/20 21:00 07/03/20 21:07 1,200 MG Heparin Sodium (Porcine) (Heparin Sodium) 2,500 unit 1X ONCE 07/01/20 12:30 07/01/20 12:32 DC 07/01/20 12:49 2,500 UNIT Hydromorphone HCl (Dilaudid) 0.2 mg PRN Q1HR PRN 06/30/20 10:45 UNV Info (Icu Electrolyte Protocol) 1 ea DAILY 07/01/20 09:00 07/02/20 08:31 1 EA Info (PHARMACY MONITORING -- do not chart) 1 each PRN DAILY PRN 07/01/20 11:30 07/03/20 10:32 DC Levothyroxine Sodium (Synthroid) 100 mcg DAILY06 07/01/20 13:00 07/04/20 06:14 100 MCG Lidocaine HCl (Buffered Lidocaine 1%) 6 ml 1X ONCE 07/01/20 12:30 07/01/20 12:32 DC 07/01/20 12:49 6 ML Lorazepam (Ativan) 0.5 mg PRN Q4HRS PRN 07/01/20 12:30 07/04/20 08:17 DC Magnesium Sulfate 100 ml @ 25 mls/hr 1X ONCE 07/02/20 07:15 07/02/20 11:14 DC 07/02/20 07:15 25 MLS/HR Magnesium Sulfate/ Dextrose 100 ml @ 100 mls/hr 1X ONCE 06/30/20 17:30 06/30/20 18:29 DC 06/30/20 23:18 100 MLS/HR Mirtazapine (Remeron) 15 mg QHS 07/03/20 21:00 07/03/20 21:09 15 MG Multivitamins (Thera M Plus) 1 tab DAILY 07/01/20 13:00 07/04/20 07:51 1 TAB Non-Formulary Medication (Selenium ) 0.5 cap DAILY 07/02/20 09:00 07/01/20 12:31 DC Norepinephrine Bitartrate 8 mg/ Dextrose 258 ml @ 0 mls/hr CONT PRN 06/30/20 11:00 UNV Ondansetron HCl (Zofran Odt) 4 mg Q8HRS PRN 07/01/20 12:30 Ondansetron HCl (Zofran) 4 mg PRN Q6HRS PRN 06/30/20 10:45 Oxycodone/ Acetaminophen (Percocet 5/325) 1 tab PRN Q4HRS PRN 07/01/20 12:30 Pantoprazole Sodium (Protonix) 40 mg BIDAC 07/01/20 16:30 07/04/20 07:51 40 MG Piperacillin Sod/ Tazobactam Sod (Zosyn Per Pharmacy) 1 each PRN DAILY PRN 06/30/20 09:15 Piperacillin Sod/ Tazobactam Sod 2.25 gm/Sodium Chloride 50 ml @ 100 mls/hr Q6HRS 06/30/20 12:00 07/04/20 06:14 100 MLS/HR Piperacillin Sod/ Tazobactam Sod 3.375 gm/Sodium Chloride 50 ml @ 100 mls/hr 1X ONCE 06/30/20 06:30 06/30/20 06:59 DC 06/30/20 07:54 100 MLS/HR Potassium Chloride/Water 100 ml @ 100 mls/hr Q1H 07/03/20 11:00 07/03/20 12:59 DC 07/03/20 13:37 100 MLS/HR Prochlorperazine (Compazine) 25 mg PRN Q12HR PRN 06/30/20 10:45 Senna/Docusate Sodium (Senna Plus) 2 tab PRN BID PRN 07/01/20 12:30 Sodium Bicarbonate (Sodium Bicarbonate) 1,300 mg TID 07/01/20 14:00 07/01/20 18:09 DC Sodium Bicarbonate (Sodium Bicarb Adult 8.4% Syr) 100 meq 1X ONCE 07/01/20 08:45 07/01/20 08:49 DC 07/01/20 08:58 100 MEQ Sodium Chloride 1,000 ml @ 400 mls/hr Q2H30M PRN 07/01/20 11:30 07/01/20 23:29 DC Sodium Chloride (Normal Saline Flush) 3 ml QSHIFT PRN 06/30/20 10:45 Sodium Phosphate 20 mmol/Sodium Chloride 256.6667 ml @ 64.167 m... 1X ONCE 07/02/20 13:00 07/02/20 16:59 DC 07/02/20 13:26 64.167 MLS/HR Vancomycin HCl 1 gm/Sodium Chloride 250 ml @ 250 mls/hr 1X ONCE 06/30/20 06:45 06/30/20 07:44 DC 06/30/20 08:37 250 MLS/HR Labs: Lab Laboratory Tests Test 07/04/20 06:35 White Blood Count 5.5 x10^3/uL (4.0-11.0) Red Blood Count 2.64 x10^6/uL (3.50-5.40) Hemoglobin 8.3 g/dL (12.0-15.5) Hematocrit 25.8 % (36.0-47.0) Mean Corpuscular Volume 98 fL (79-100) Mean Corpuscular Hemoglobin 31 pg (25-35) Mean Corpuscular Hemoglobin Concent 32 g/dL (31-37) Red Cell Distribution Width 14.8 % (11.5-14.5) Platelet Count 133 x10^3/uL (140-400) Neutrophils (%) (Auto) 71 % (31-73) Lymphocytes (%) (Auto) 17 % (24-48) Monocytes (%) (Auto) 8 % (0-9) Eosinophils (%) (Auto) 4 % (0-3) Basophils (%) (Auto) 1 % (0-3) Neutrophils # (Auto) 3.8 x10^3/uL (1.8-7.7) Lymphocytes # (Auto) 0.9 x10^3/uL (1.0-4.8) Monocytes # (Auto) 0.4 x10^3/uL (0.0-1.1) Eosinophils # (Auto) 0.2 x10^3/uL (0.0-0.7) Basophils # (Auto) 0.0 x10^3/uL (0.0-0.2) Sodium Level 143 mmol/L (136-145) Potassium Level 4.0 mmol/L (3.5-5.1) Chloride Level 114 mmol/L (98-107) Carbon Dioxide Level 18 mmol/L (21-32) Anion Gap 11 (6-14) Blood Urea Nitrogen 17 mg/dL (7-20) Creatinine 1.3 mg/dL (0.6-1.0) Estimated GFR (Cockcroft-Gault) 40.0 BUN/Creatinine Ratio 13 (6-20) Glucose Level 60 mg/dL (70-99) Calcium Level 7.9 mg/dL (8.5-10.1) Total Bilirubin 0.2 mg/dL (0.2-1.0) Aspartate Amino Transf (AST/SGOT) 12 U/L (15-37) Alanine Aminotransferase (ALT/SGPT) 17 U/L (14-59) Alkaline Phosphatase 72 U/L (46-116) Total Protein 4.7 g/dL (6.4-8.2) Albumin 1.2 g/dL (3.4-5.0) Albumin/Globulin Ratio 0.3 (1.0-1.7) Objective: Assessment: Leukocytosis, resolved Klebsiella UTI, Pneumonia possible aspiration Acute kidney injury on CKD Severe protein calorie malnutrition Covid negative Generalized debility hypothyroidism history of bowel obstruction, status post multiple abdominal surgeries. Plan: Plan of Care 1. DC Zosyn ,Ceftriaxone 2. Follow up labs and cultures. 3. Continue supportive care. 4. Maintain aspiration precaution MITCH ASTORGA MD Jul 04, 2020 10:37
--- NOTE | 2020-07-04 11:41 | NUR ---
Assumed patient care at 1100. The patient is up on the chair, awake, alert, oriented x3 on room air, watching TV with call light within reach. The patient did not verbalize any complaints.
[2020-07-04] MEDS: DRONABINOL 2.5 MG CAPSULE. PO SCH ×2 (12:39→17:37)
--- NOTE | 2020-07-04 12:42 | PDOC ---
GENERAL General: Patient examined chart reviewed discussed with nursing. She tolerated the decrease in her mental health regimen and that is likely linked in part with her ability to finally get off that Levophed yesterday. We are planning on transferring her to the telemetry unit for the remainder of her stay. Patient is in good spirits today and has no complaints. She is sitting up getting ready to eat lunch. We will continue current management otherwise. Subspecialty support is appreciated. Problems: (1) Infection, Klebsiella (2) Weakness VITAL SIGNS Vital Signs/I&O: Vital Signs Date Time Temp Pulse Resp B/P (MAP) Pulse Ox O2 Delivery O2 Flow Rate FiO2 07/04/20 10:00 80 14 95/58 (70) 100 Room Air 07/04/20 08:00 98.1 98.1 I & O 07/03/20 07/03/20 07/04/20 15:00 23:00 07:00 Intake Total 350 ml 1805.2 ml 1685 ml Output Total 50 ml 665 ml 400 ml Balance 300 ml 1140.2 ml 1285 ml In general the patient is pleasant more interactive today alert and oriented x3 no acute distress HEENT exam is unremarkable Chest is clear to auscultation Heart S1-S2 normal regular rate and rhythm no murmurs or gallops are noted Abdomen soft nontender nondistended no masses organomegaly noted Extremity exam is notable for 2+ bipedal edema ALLERGIES Allergies: Allergies Coded Allergies Type Severity Reaction Last Updated Verified hydromorphone Allergy Intermediate Palpitations 10/14/13 Yes rosuvastatin Allergy Mild Nausea and Vomiting 10/14/13 Yes MEDS Medications: Current Medications Medications (Trade) Dose Ordered Sig/Sumit Start Time Stop Time Status Last Admin Dose Admin Acetaminophen (Tylenol) 650 mg PRN Q4HRS PRN 07/01/20 12:30 Amylase/Lipase/ Protease (Zenpep 10,000) 1 cap TIDWMEALS 07/01/20 17:00 07/04/20 07:51 Aripiprazole (Abilify) 10 mg DAILY 07/04/20 09:00 07/04/20 07:51 Aspirin (Ecotrin) 81 mg DAILYWBKFT 07/02/20 08:00 07/04/20 07:51 Bisacodyl (Dulcolax Supp) 10 mg PRN DAILY PRN 06/30/20 10:45 Bupropion HCl (Wellbutrin Xl) 300 mg DAILY 07/01/20 13:00 07/04/20 07:51 Calcium/Vitamin D (Oscal D 500mg/ 200uts) 1 tab BIDWMEALS 07/01/20 17:00 07/04/20 07:51 Carvedilol (Coreg) 6.25 mg BIDWMEALS 07/01/20 17:00 Ceftriaxone Sodium (Rocephin) 2 gm Q24H 07/04/20 12:00 Citalopram Hydrobromide (CeleXA) 10 mg DAILY 07/04/20 09:00 07/04/20 07:51 Clonazepam (KlonoPIN) 1 mg PRN BID PRN 07/03/20 13:45 07/03/20 21:26 Digoxin (Lanoxin) 500 mcg 1X ONCE 07/01/20 16:00 07/01/20 16:01 DC 07/01/20 16:44 Dronabinol (Marinol) 2.5 mg BIDACLD 07/01/20 16:30 07/03/20 17:17 Famotidine (Pepcid Vial) 20 mg DAILY 06/30/20 12:00 07/02/20 08:29 DC 07/01/20 07:35 Ferrous Sulfate (Feosol) 325 mg DAILY 07/01/20 13:00 07/04/20 07:52 Furosemide (Lasix) 40 mg DAILY 07/02/20 09:00 UNV Gabapentin (Neurontin) 1,200 mg QHS 07/01/20 21:00 07/03/20 21:07 Heparin Sodium (Porcine) (Heparin Sodium) 2,500 unit 1X ONCE 07/01/20 12:30 07/01/20 12:32 DC 07/01/20 12:49 Hydromorphone HCl (Dilaudid) 0.2 mg PRN Q1HR PRN 06/30/20 10:45 UNV Info (Icu Electrolyte Protocol) 1 ea DAILY 07/01/20 09:00 07/02/20 08:31 Info (PHARMACY MONITORING -- do not chart) 1 each PRN DAILY PRN 07/01/20 11:30 07/03/20 10:32 DC Levothyroxine Sodium (Synthroid) 100 mcg DAILY06 07/01/20 13:00 07/04/20 06:14 Lidocaine HCl (Buffered Lidocaine 1%) 6 ml 1X ONCE 07/01/20 12:30 07/01/20 12:32 DC 07/01/20 12:49 Lorazepam (Ativan) 0.5 mg PRN Q4HRS PRN 07/01/20 12:30 07/04/20 08:17 DC Magnesium Sulfate 100 ml @ 25 mls/hr 1X ONCE 07/02/20 07:15 07/02/20 11:14 DC 07/02/20 07:15 Magnesium Sulfate/ Dextrose 100 ml @ 100 mls/hr 1X ONCE 06/30/20 17:30 06/30/20 18:29 DC 06/30/20 23:18 Mirtazapine (Remeron) 15 mg QHS 07/03/20 21:00 07/03/20 21:09 Multivitamins (Thera M Plus) 1 tab DAILY 07/01/20 13:00 07/04/20 07:51 Non-Formulary Medication (Selenium ) 0.5 cap DAILY 07/02/20 09:00 07/01/20 12:31 DC Norepinephrine Bitartrate 8 mg/ Dextrose 258 ml @ 0 mls/hr CONT PRN 06/30/20 11:00 UNV Ondansetron HCl (Zofran Odt) 4 mg Q8HRS PRN 07/01/20 12:30 Ondansetron HCl (Zofran) 4 mg PRN Q6HRS PRN 06/30/20 10:45 Oxycodone/ Acetaminophen (Percocet 5/325) 1 tab PRN Q4HRS PRN 07/01/20 12:30 Pantoprazole Sodium (Protonix) 40 mg BIDAC 07/01/20 16:30 07/04/20 07:51 Piperacillin Sod/ Tazobactam Sod (Zosyn Per Pharmacy) 1 each PRN DAILY PRN 06/30/20 09:15 07/04/20 11:18 DC Piperacillin Sod/ Tazobactam Sod 2.25 gm/Sodium Chloride 50 ml @ 100 mls/hr Q6HRS 06/30/20 12:00 07/04/20 11:16 DC 07/04/20 06:14 Piperacillin Sod/ Tazobactam Sod 3.375 gm/Sodium Chloride 50 ml @ 100 mls/hr 1X ONCE 06/30/20 06:30 06/30/20 06:59 DC 06/30/20 07:54 Potassium Chloride/Water 100 ml @ 100 mls/hr Q1H 07/03/20 11:00 07/03/20 12:59 DC 07/03/20 13:37 Prochlorperazine (Compazine) 25 mg PRN Q12HR PRN 06/30/20 10:45 Senna/Docusate Sodium (Senna Plus) 2 tab PRN BID PRN 07/01/20 12:30 Sodium Bicarbonate (Sodium Bicarbonate) 1,300 mg TID 07/01/20 14:00 07/01/20 18:09 DC Sodium Bicarbonate (Sodium Bicarb Adult 8.4% Syr) 100 meq 1X ONCE 07/01/20 08:45 07/01/20 08:49 DC 07/01/20 08:58 Sodium Chloride 1,000 ml @ 400 mls/hr Q2H30M PRN 07/01/20 11:30 07/01/20 23:29 DC Sodium Chloride (Normal Saline Flush) 3 ml QSHIFT PRN 06/30/20 10:45 Sodium Phosphate 20 mmol/Sodium Chloride 256.6667 ml @ 64.167 m... 1X ONCE 07/02/20 13:00 07/02/20 16:59 DC 07/02/20 13:26 Vancomycin HCl 1 gm/Sodium Chloride 250 ml @ 250 mls/hr 1X ONCE 06/30/20 06:45 06/30/20 07:44 DC 06/30/20 08:37 Current Medications Medications (Trade) Dose Ordered Sig/Sumit Route PRN Reason Start Time Stop Time Status Last Admin Dose Admin Clonazepam (KlonoPIN) 1 mg PRN BID PRN PO ANXIETY / AGITATION 07/03/20 13:45 07/03/20 21:26 Aripiprazole (Abilify) 10 mg DAILY PO 07/04/20 09:00 07/04/20 07:51 Citalopram Hydrobromide (CeleXA) 10 mg DAILY PO 07/04/20 09:00 07/04/20 07:51 Mirtazapine (Remeron) 15 mg QHS PO 07/03/20 21:00 07/03/20 21:09 LAB Lab: Laboratory Tests Test 07/04/20 06:35 White Blood Count 5.5 x10^3/uL (4.0-11.0) Red Blood Count 2.64 x10^6/uL (3.50-5.40) L Hemoglobin 8.3 g/dL (12.0-15.5) L Hematocrit 25.8 % (36.0-47.0) L Mean Corpuscular Volume 98 fL (79-100) Mean Corpuscular Hemoglobin 31 pg (25-35) Mean Corpuscular Hemoglobin Concent 32 g/dL (31-37) Red Cell Distribution Width 14.8 % (11.5-14.5) H Platelet Count 133 x10^3/uL (140-400) L Neutrophils (%) (Auto) 71 % (31-73) Lymphocytes (%) (Auto) 17 % (24-48) L Monocytes (%) (Auto) 8 % (0-9) Eosinophils (%) (Auto) 4 % (0-3) H Basophils (%) (Auto) 1 % (0-3) Neutrophils # (Auto) 3.8 x10^3/uL (1.8-7.7) Lymphocytes # (Auto) 0.9 x10^3/uL (1.0-4.8) L Monocytes # (Auto) 0.4 x10^3/uL (0.0-1.1) Eosinophils # (Auto) 0.2 x10^3/uL (0.0-0.7) Basophils # (Auto) 0.0 x10^3/uL (0.0-0.2) Sodium Level 143 mmol/L (136-145) Potassium Level 4.0 mmol/L (3.5-5.1) Chloride Level 114 mmol/L (98-107) H Carbon Dioxide Level 18 mmol/L (21-32) L Anion Gap 11 (6-14) Blood Urea Nitrogen 17 mg/dL (7-20) Creatinine 1.3 mg/dL (0.6-1.0) H Estimated GFR (Cockcroft-Gault) 40.0 BUN/Creatinine Ratio 13 (6-20) Glucose Level 60 mg/dL (70-99) L Calcium Level 7.9 mg/dL (8.5-10.1) L Total Bilirubin 0.2 mg/dL (0.2-1.0) Aspartate Amino Transferase (AST) 12 U/L (15-37) L Alanine Aminotransferase (ALT) 17 U/L (14-59) Alkaline Phosphatase 72 U/L (46-116) Total Protein 4.7 g/dL (6.4-8.2) L Albumin 1.2 g/dL (3.4-5.0) L Albumin/Globulin Ratio 0.3 (1.0-1.7) L Laboratory Tests 07/04/20 06:35 Laboratory Tests 07/04/20 06:35 ASSESSMENT & PLAN A&P Plan as noted above This note was created using [employer] and may have omissions and/or errors due to 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 Justifications for Admission General Conditions Poss tachycardia?: Yes Justification for admission: Patient has tachycardia (> 100 beats per minute) which is not readily corrected by appropriate treatment within 12 to 24 hours. severe sepsis Other Justification Nutrition Consultation Dietary Evaluation: Recommendations by RD: Dietary education by RD, Increase Calorie Intake, Protein supplementation Comments: Continue w/diet as ordered: dysphagia I/thin liquids, renal REC Nepro supplements (mixed covarrubias) TID REC Ensure pudding (vanilla) BID Expected Outcomes/Goals: PO intake + bolus TFs to meet >75% est needs - not met, new goal established New goal 07/02: PO intake to meet >75% est needs Malnutrition Findings: Body Fat Depletion (Non Severe: Mild Depletion Weight Status: Appropriate POOL MCKEON MD Jul 04, 2020 12:42
[2020-07-04] MEDS: cefTRIAXone IV Push 2 GM VIAL. IVP SCH (12:44)
--- NOTE | 2020-07-04 14:43 | PDOC ---
PROGRESS NOTES Date of Service: DATE: 07/04/20 TIME: 14:42 Subjective Subjective Feeling better today. Presently off pressors. Objective Objective Vital Signs Date Time Temp Pulse Resp B/P (MAP) Pulse Ox O2 Delivery O2 Flow Rate FiO2 07/04/20 13:00 88 18 104/64 (77) 100 Room Air 07/04/20 11:00 98.4 98.4 Intake and Output 07/04/20 07:00 Intake Total 3840.2 ml Output Total 1115 ml Balance 2725.2 ml Intake Oral 300 ml IV Total 1855.2 ml Blood Product IV Normal Saline Flush 1685 ml Output Urine Total 1115 ml # Bowel Movements 2 Physical Exam Abdomen: Normal bowel sounds, Soft, No tenderness Heart: Regular rate, Normal S1, Normal S2, No murmurs Extremities: No clubbing, No edema, No tenderness/swelling General: Alert HEENT: Atraumatic Lungs: Clear to auscultation, Normal air movement Psych/Mental Status: Mood NL Diagnosis RENAL FAILURE: Acute (Acute tubular necrosis) Assessment Assessment 1. Sepsis/shock with HCAP and UTI. Covid negative. Off pressors. Continue antibiotics per ID team. 2. NIC on CKD: unclear baseline. receiving HD, nephrology following 3. Weakness/deconditioning/debility 4. Acute on chronic diastolic CHF: induced by sepsis and severe NIC, better compensated. 5. PAFIB with RVR: Newly diagnosed, presently back in sinus rhythm. EF and WM nml 6. Mild troponin elevation: type 2 peaked at 0.05 with above culprits. We will consider ischemic work-up as an outpatient. 7. Hypothyroidism: TSH on goal 8. 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 Normocytic anemia Possible transfer to telemetry. Plan Plan of Care Problems Medical Problems: (1) HCAP (healthcare-associated pneumonia) Status: Acute (2) Weakness Status: Acute Comment Review of Relevant I have reviewed the following items isreal (where applicable) has been applied. Labs Laboratory Tests Test 07/04/20 06:35 White Blood Count 5.5 x10^3/uL (4.0-11.0) Red Blood Count 2.64 x10^6/uL (3.50-5.40) Hemoglobin 8.3 g/dL (12.0-15.5) Hematocrit 25.8 % (36.0-47.0) Mean Corpuscular Volume 98 fL (79-100) Mean Corpuscular Hemoglobin 31 pg (25-35) Mean Corpuscular Hemoglobin Concent 32 g/dL (31-37) Red Cell Distribution Width 14.8 % (11.5-14.5) Platelet Count 133 x10^3/uL (140-400) Neutrophils (%) (Auto) 71 % (31-73) Lymphocytes (%) (Auto) 17 % (24-48) Monocytes (%) (Auto) 8 % (0-9) Eosinophils (%) (Auto) 4 % (0-3) Basophils (%) (Auto) 1 % (0-3) Neutrophils # (Auto) 3.8 x10^3/uL (1.8-7.7) Lymphocytes # (Auto) 0.9 x10^3/uL (1.0-4.8) Monocytes # (Auto) 0.4 x10^3/uL (0.0-1.1) Eosinophils # (Auto) 0.2 x10^3/uL (0.0-0.7) Basophils # (Auto) 0.0 x10^3/uL (0.0-0.2) Sodium Level 143 mmol/L (136-145) Potassium Level 4.0 mmol/L (3.5-5.1) Chloride Level 114 mmol/L (98-107) Carbon Dioxide Level 18 mmol/L (21-32) Anion Gap 11 (6-14) Blood Urea Nitrogen 17 mg/dL (7-20) Creatinine 1.3 mg/dL (0.6-1.0) Estimated GFR (Cockcroft-Gault) 40.0 BUN/Creatinine Ratio 13 (6-20) Glucose Level 60 mg/dL (70-99) Calcium Level 7.9 mg/dL (8.5-10.1) Total Bilirubin 0.2 mg/dL (0.2-1.0) Aspartate Amino Transf (AST/SGOT) 12 U/L (15-37) Alanine Aminotransferase (ALT/SGPT) 17 U/L (14-59) Alkaline Phosphatase 72 U/L (46-116) Total Protein 4.7 g/dL (6.4-8.2) Albumin 1.2 g/dL (3.4-5.0) Albumin/Globulin Ratio 0.3 (1.0-1.7) Microbiology 06/30/20 Blood Culture - Preliminary, Resulted NO GROWTH AFTER 4 DAYS 06/30/20 Urine Culture - Final, Complete 06/30/20 Antimicrobic Susceptibility - Final, Complete Medications Current Medications Aripiprazole (Abilify) 10 mg DAILY PO Last administered on 07/04/20at 07:51; Start 07/04/20 at 09:00 Ceftriaxone Sodium (Rocephin) 2 gm Q24H IVP Last administered on 07/04/20at 12:44; Start 07/04/20 at 12:00 Citalopram Hydrobromide (CeleXA) 10 mg DAILY PO Last administered on 07/04/20at 07:51; Start 07/04/20 at 09:00 Mirtazapine (Remeron) 15 mg QHS PO Last administered on 07/03/20at 21:09; Start 07/03/20 at 21:00 Vitals/I & O Vital Sign - Last 24 Hours 07/03/20 07/03/20 07/03/20 07/03/20 15:00 16:00 16:00 17:00 Temp 98.6 98.6 Pulse 76 73 73 Resp 22 24 22 B/P (MAP) 107/52 (70) 97/51 (66) 109/63 (78) Pulse Ox 100 100 100 O2 Delivery Room Air Room Air Room Air Room Air 07/03/20 07/03/20 07/03/20 07/03/20 18:00 19:00 20:00 20:00 Pulse 70 72 74 Resp 22 26 25 B/P (MAP) 126/68 (87) 132/66 (88) 99/55 (70) Pulse Ox 99 99 100 O2 Delivery Room Air Room Air Room Air Room Air 07/03/20 07/03/20 07/03/20 07/04/20 21:00 22:00 23:00 00:00 Temp 98.6 98.6 Pulse 74 70 70 Resp 29 B/P (MAP) 94/52 (66) 103/55 (71) 82/45 (57) Pulse Ox 99 100 100 O2 Delivery Room Air Room Air Room Air Room Air 07/04/20 07/04/20 07/04/20 07/04/20 00:00 01:00 02:00 03:00 Temp 98.7 98.7 Pulse 68 66 66 68 B/P (MAP) 86/45 (59) 87/53 (64) 89/46 (60) 95/52 (66) Pulse Ox 100 100 100 100 O2 Delivery Room Air Room Air Room Air Room Air 07/04/20 07/04/20 07/04/20 07/04/20 04:00 04:00 05:00 06:00 Pulse 68 78 72 Resp 20 18 B/P (MAP) 94/49 (64) 147/65 (92) 132/63 (86) Pulse Ox 100 100 100 O2 Delivery Room Air Room Air Room Air Room Air 07/04/20 07/04/20 07/04/20 07/04/20 07:00 08:00 08:00 09:00 Temp 98.1 98.1 Pulse 75 87 85 Resp 20 20 14 B/P (MAP) 133/61 (85) 96/69 (78) 125/62 (83) Pulse Ox 99 99 100 O2 Delivery Room Air Room Air Room Air Room Air 07/04/20 07/04/20 07/04/20 07/04/20 10:00 11:00 12:00 12:00 Temp 98.4 98.4 Pulse 80 80 80 Resp 14 17 17 B/P (MAP) 95/58 (70) 97/88 (91) 98/63 (75) Pulse Ox 100 99 100 O2 Delivery Room Air Room Air Room Air Room Air 07/04/20 13:00 Pulse 88 Resp 18 B/P (MAP) 104/64 (77) Pulse Ox 100 O2 Delivery Room Air Intake and Output 07/03/20 07/03/20 07/04/20 15:00 23:00 07:00 Intake Total 350 ml 1805.2 ml 1685 ml Output Total 50 ml 665 ml 400 ml Balance 300 ml 1140.2 ml 1285 ml MARY FULLER MD Jul 04, 2020 14:43
[2020-07-04] MEDS: MIRTAZAPINE 15 MG TABLET PO SCH (21:23)
[2020-07-04] MEDS: GABAPENTIN 400 MG CAPSULE. PO SCH (21:23)
[2020-07-05] MEDS: IV NORMAL SALINE 1000ML BAG 1,000 ML IV SCH ×3 (00:45→20:46)
[2020-07-05 02:59] VITALS: BP 128/75
[2020-07-05] MEDS: LEVOTHYROXINE 100 MCG TABLET PO SCH (06:32)
[2020-07-05] MEDS: HEPARIN for SUB-Q USE 5,000 UNIT/ML VIAL. SQ SCH ×3 (06:41→20:56)
[2020-07-05 07:00] VITALS: BP 90/50
[2020-07-05 07:50] VITALS: BP 147/72
[2020-07-05] MEDS: LIPASE/PROTEAS/AMYLAS 10/32/42 CAPSULE.DR. PO SCH ×3 (08:00→17:30)
--- NOTE | 2020-07-05 08:11 | PDOC ---
Infectious Disease Note Subjective: Subjective Patient without complaints Feels stronger Vital Signs: Vital Signs Vital Signs Date Time Temp Pulse Resp B/P (MAP) Pulse Ox O2 Delivery O2 Flow Rate FiO2 07/05/20 02:59 97.3 76 18 128/75 (92) 95 Room Air 97.3 Physical Exam: PHYSICAL EXAM GENERAL: Alert, awake, weak-appearing female, lying in bed comfortably, in no acute distress, answers most of the questions. HEENT: Normocephalic, atraumatic, anicteric. NECK: Supple. Right IJ clean LUNGS: Decreased breath sounds at the bases. HEART: S1, S2. ABDOMEN: Soft, nontender, bowel sounds present. EXTREMITIES: No edema, no cyanosis. DERMATOLOGIC: Mild skin breakdown on the right lower extremity, superficial, not infected. NEUROLOGIC: Generalized weakness, somewhat confused, alert, awake. MUSCULOSKELETAL: No joint swelling. Weakness present. Left upper extremity PICC line clean Medications: Inpatient Meds: Current Medications Medications (Trade) Dose Ordered Sig/Sumit Start Time Stop Time Status Last Admin Dose Admin Acetaminophen (Tylenol) 650 mg PRN Q4HRS PRN 07/01/20 12:30 Amylase/Lipase/ Protease (Zenpep 10,000) 1 cap TIDWMEALS 07/01/20 17:00 07/04/20 17:37 1 CAP Aripiprazole (Abilify) 10 mg DAILY 07/04/20 09:00 07/04/20 07:51 10 MG Aspirin (Ecotrin) 81 mg DAILYWBKFT 07/02/20 08:00 07/04/20 07:51 81 MG Bisacodyl (Dulcolax Supp) 10 mg PRN DAILY PRN 06/30/20 10:45 Bupropion HCl (Wellbutrin Xl) 300 mg DAILY 07/01/20 13:00 07/04/20 07:51 300 MG Calcium/Vitamin D (Oscal D 500mg/ 200uts) 1 tab BIDWMEALS 07/01/20 17:00 07/04/20 17:35 1 TAB Carvedilol (Coreg) 6.25 mg BIDWMEALS 07/01/20 17:00 07/04/20 17:36 6.25 MG Ceftriaxone Sodium (Rocephin) 2 gm Q24H 07/04/20 12:00 07/04/20 12:44 2 GM Citalopram Hydrobromide (CeleXA) 10 mg DAILY 07/04/20 09:00 07/04/20 07:51 10 MG Clonazepam (KlonoPIN) 1 mg PRN BID PRN 07/03/20 13:45 07/03/20 21:26 1 MG Digoxin (Lanoxin) 500 mcg 1X ONCE 07/01/20 16:00 07/01/20 16:01 DC 07/01/20 16:44 500 MCG Dronabinol (Marinol) 2.5 mg BIDACLD 07/01/20 16:30 07/04/20 17:37 2.5 MG Famotidine (Pepcid Vial) 20 mg DAILY 06/30/20 12:00 07/02/20 08:29 DC 07/01/20 07:35 20 MG Ferrous Sulfate (Feosol) 325 mg DAILY 07/01/20 13:00 07/04/20 07:52 325 MG Furosemide (Lasix) 40 mg DAILY 07/02/20 09:00 UNV Gabapentin (Neurontin) 1,200 mg QHS 07/01/20 21:00 07/04/20 21:23 1,200 MG Heparin Sodium (Porcine) (Heparin Sodium) 2,500 unit 1X ONCE 07/01/20 12:30 07/01/20 12:32 DC 07/01/20 12:49 2,500 UNIT Hydromorphone HCl (Dilaudid) 0.2 mg PRN Q1HR PRN 06/30/20 10:45 UNV Info (Icu Electrolyte Protocol) 1 ea DAILY 07/01/20 09:00 07/02/20 08:31 1 EA Info (PHARMACY MONITORING -- do not chart) 1 each PRN DAILY PRN 07/01/20 11:30 07/03/20 10:32 DC Levothyroxine Sodium (Synthroid) 100 mcg DAILY06 07/01/20 13:00 07/05/20 06:32 100 MCG Lidocaine HCl (Buffered Lidocaine 1%) 6 ml 1X ONCE 07/01/20 12:30 07/01/20 12:32 DC 07/01/20 12:49 6 ML Lorazepam (Ativan) 0.5 mg PRN Q4HRS PRN 07/01/20 12:30 07/04/20 08:17 DC Magnesium Sulfate 100 ml @ 25 mls/hr 1X ONCE 07/02/20 07:15 07/02/20 11:14 DC 07/02/20 07:15 25 MLS/HR Magnesium Sulfate/ Dextrose 100 ml @ 100 mls/hr 1X ONCE 06/30/20 17:30 06/30/20 18:29 DC 06/30/20 23:18 100 MLS/HR Mirtazapine (Remeron) 15 mg QHS 07/03/20 21:00 07/04/20 21:23 15 MG Multivitamins (Thera M Plus) 1 tab DAILY 07/01/20 13:00 07/04/20 07:51 1 TAB Non-Formulary Medication (Selenium ) 0.5 cap DAILY 07/02/20 09:00 07/01/20 12:31 DC Norepinephrine Bitartrate 8 mg/ Dextrose 258 ml @ 0 mls/hr CONT PRN 06/30/20 11:00 UNV Ondansetron HCl (Zofran Odt) 4 mg Q8HRS PRN 07/01/20 12:30 Ondansetron HCl (Zofran) 4 mg PRN Q6HRS PRN 06/30/20 10:45 Oxycodone/ Acetaminophen (Percocet 5/325) 1 tab PRN Q4HRS PRN 07/01/20 12:30 Pantoprazole Sodium (Protonix) 40 mg BIDAC 07/01/20 16:30 07/04/20 17:36 40 MG Piperacillin Sod/ Tazobactam Sod (Zosyn Per Pharmacy) 1 each PRN DAILY PRN 06/30/20 09:15 07/04/20 11:18 DC Piperacillin Sod/ Tazobactam Sod 2.25 gm/Sodium Chloride 50 ml @ 100 mls/hr Q6HRS 06/30/20 12:00 07/04/20 11:16 DC 07/04/20 06:14 100 MLS/HR Piperacillin Sod/ Tazobactam Sod 3.375 gm/Sodium Chloride 50 ml @ 100 mls/hr 1X ONCE 06/30/20 06:30 06/30/20 06:59 DC 06/30/20 07:54 100 MLS/HR Potassium Chloride/Water 100 ml @ 100 mls/hr Q1H 07/03/20 11:00 07/03/20 12:59 DC 07/03/20 13:37 100 MLS/HR Prochlorperazine (Compazine) 25 mg PRN Q12HR PRN 06/30/20 10:45 Senna/Docusate Sodium (Senna Plus) 2 tab PRN BID PRN 07/01/20 12:30 Sodium Bicarbonate (Sodium Bicarbonate) 1,300 mg TID 07/01/20 14:00 07/01/20 18:09 DC Sodium Bicarbonate (Sodium Bicarb Adult 8.4% Syr) 100 meq 1X ONCE 07/01/20 08:45 07/01/20 08:49 DC 07/01/20 08:58 100 MEQ Sodium Chloride 1,000 ml @ 400 mls/hr Q2H30M PRN 07/01/20 11:30 07/01/20 23:29 DC Sodium Chloride (Normal Saline Flush) 3 ml QSHIFT PRN 06/30/20 10:45 Sodium Phosphate 20 mmol/Sodium Chloride 256.6667 ml @ 64.167 m... 1X ONCE 07/02/20 13:00 07/02/20 16:59 DC 07/02/20 13:26 64.167 MLS/HR Vancomycin HCl 1 gm/Sodium Chloride 250 ml @ 250 mls/hr 1X ONCE 06/30/20 06:45 06/30/20 07:44 DC 06/30/20 08:37 250 MLS/HR Objective: Assessment: Leukocytosis, resolved Klebsiella UTI, Pneumonia possible aspiration Acute kidney injury on CKD Severe protein calorie malnutrition Covid negative Generalized debility hypothyroidism history of bowel obstruction, status post multiple abdominal surgeries. Plan: Plan of Care 1. Cont Ceftriaxone 2. Follow up labs and cultures. 3. Continue supportive care. 4. Maintain aspiration precaution MITCH ASTORGA MD Jul 05, 2020 08:11
[2020-07-05] MEDS: ELECTROLYTE (ICU) PROTOCOL. MC SCH (09:00)
[2020-07-05] MEDS: MULTIVITAMIN with MINERAL TABLET. PO SCH (09:02)
[2020-07-05] MEDS: buPROPion XL 150 MG TAB.ER.24H. PO SCH (09:02)
[2020-07-05] MEDS: FERROUS SULFATE 325 MG TABLET. PO SCH (09:02)
[2020-07-05] MEDS: ASPIRIN ENTERIC COATED 81 MG TABLET.DR. PO SCH (09:03)
[2020-07-05] MEDS: CALCIUM CARB/VIT D3 500/200 TABLET. PO SCH ×2 (09:03→17:30)
[2020-07-05] MEDS: ARIPiprazole 5 MG TABLET PO SCH (09:05)
[2020-07-05] MEDS: CITALOPRAM 10 MG TABLET. PO SCH (09:05)
[2020-07-05] MEDS: CARVEDILOL 6.25 MG TABLET. PO SCH ×2 (09:06→17:30)
[2020-07-05] MEDS: PANTOPRAZOLE 40 MG TABLET.DR. PO SCH ×2 (09:07→17:30)
--- NOTE | 2020-07-05 10:48 | PDOC ---
DATE OF SERVICE DATE: 07/05/20 TIME: 10:34 SUBJECTIVE ROS Stable, no complaints OBJECTIVE Vital Signs Vital Signs Date Time Temp Pulse Resp B/P (MAP) Pulse Ox O2 Delivery O2 Flow Rate FiO2 07/05/20 09:06 74 07/05/20 07:50 98.5 18 147/72 (97) 95 Room Air 98.5 I & 0 Intake and Output 07/05/20 07:00 Intake Total 360 ml Output Total 390 ml Balance -30 ml Intake Oral 360 ml Output Urine Total 390 ml Gastric Drainage Total 0 ml PHYSICAL EXAM Physical Exam GENERAL NAD , sitting up in chair HEENTanicteric, om moist , on RA NECK: Supple. LUNGS: Decreased breath sounds at the bases, non labored HEART: S1, S2. ABDOMEN: Soft, nontender, EXTREMITIES: No edema, changes of CVI + DERMATOLOGIC: No rash NEUROLOGIC: alert, awake, oriented Munoz + DIAGNOSIS/ASSESSMENT Assessment & Plan NIC - Cr of 2.7 at presentation , Oliguric POA, Sepsis/Shock , required HD x 1 (07/01 or ) Currently Non Oliguric, Cr stable, labs pending this am ,Clinically no indication for HD currently , supportive care , I/O (voiding trial when Munoz dced) , Monitor CKD stage 4- baseline Cr 1.7, Pt follows with Dr. Raya at - every 6 months, she recalls her baseline Cr 2 Klebsiella UTI Pneumonia possible aspiration Severe protein calorie malnutrition Generalized debility history of bowel obstruction, status post multiple abdominal surgeries. Acute on chronic diastolic CHF PAFIB with RVR: Newly diagnosed. EF and WM nml COMMENT/RELEVANT DATA Meds Current Medications Medications (Trade) Dose Ordered Sig/Sumit Start Time Stop Time Status Last Admin Dose Admin Acetaminophen (Tylenol) 650 mg PRN Q4HRS PRN 07/01/20 12:30 Amylase/Lipase/ Protease (Zenpep 10,000) 1 cap TIDWMEALS 07/01/20 17:00 07/04/20 17:37 1 CAP Aripiprazole (Abilify) 10 mg DAILY 07/04/20 09:00 07/05/20 09:05 10 MG Aspirin (Ecotrin) 81 mg DAILYWBKFT 07/02/20 08:00 07/05/20 09:03 81 MG Bisacodyl (Dulcolax Supp) 10 mg PRN DAILY PRN 06/30/20 10:45 Bupropion HCl (Wellbutrin Xl) 300 mg DAILY 07/01/20 13:00 07/05/20 09:02 300 MG Calcium/Vitamin D (Oscal D 500mg/ 200uts) 1 tab BIDWMEALS 07/01/20 17:00 07/05/20 09:03 1 TAB Carvedilol (Coreg) 6.25 mg BIDWMEALS 07/01/20 17:00 07/05/20 09:06 6.25 MG Ceftriaxone Sodium (Rocephin) 2 gm Q24H 07/04/20 12:00 07/04/20 12:44 2 GM Citalopram Hydrobromide (CeleXA) 10 mg DAILY 07/04/20 09:00 07/05/20 09:05 10 MG Clonazepam (KlonoPIN) 1 mg PRN BID PRN 07/03/20 13:45 07/03/20 21:26 1 MG Digoxin (Lanoxin) 500 mcg 1X ONCE 07/01/20 16:00 07/01/20 16:01 DC 07/01/20 16:44 500 MCG Dronabinol (Marinol) 2.5 mg BIDACLD 07/01/20 16:30 07/04/20 17:37 2.5 MG Famotidine (Pepcid Vial) 20 mg DAILY 06/30/20 12:00 07/02/20 08:29 DC 07/01/20 07:35 20 MG Ferrous Sulfate (Feosol) 325 mg DAILY 07/01/20 13:00 07/05/20 09:02 325 MG Furosemide (Lasix) 40 mg DAILY 07/02/20 09:00 UNV Gabapentin (Neurontin) 1,200 mg QHS 07/01/20 21:00 07/04/20 21:23 1,200 MG Heparin Sodium (Porcine) (Heparin Sodium) 2,500 unit 1X ONCE 07/01/20 12:30 07/01/20 12:32 DC 07/01/20 12:49 2,500 UNIT Hydromorphone HCl (Dilaudid) 0.2 mg PRN Q1HR PRN 06/30/20 10:45 UNV Info (Icu Electrolyte Protocol) 1 ea DAILY 07/01/20 09:00 07/02/20 08:31 1 EA Info (PHARMACY MONITORING -- do not chart) 1 each PRN DAILY PRN 07/01/20 11:30 07/03/20 10:32 DC Levothyroxine Sodium (Synthroid) 100 mcg DAILY06 07/01/20 13:00 07/05/20 06:32 100 MCG Lidocaine HCl (Buffered Lidocaine 1%) 6 ml 1X ONCE 07/01/20 12:30 07/01/20 12:32 DC 07/01/20 12:49 6 ML Lorazepam (Ativan) 0.5 mg PRN Q4HRS PRN 07/01/20 12:30 07/04/20 08:17 DC Magnesium Sulfate 100 ml @ 25 mls/hr 1X ONCE 07/02/20 07:15 07/02/20 11:14 DC 07/02/20 07:15 25 MLS/HR Magnesium Sulfate/ Dextrose 100 ml @ 100 mls/hr 1X ONCE 06/30/20 17:30 06/30/20 18:29 DC 06/30/20 23:18 100 MLS/HR Mirtazapine (Remeron) 15 mg QHS 07/03/20 21:00 07/04/20 21:23 15 MG Multivitamins (Thera M Plus) 1 tab DAILY 07/01/20 13:00 07/05/20 09:02 1 TAB Non-Formulary Medication (Selenium ) 0.5 cap DAILY 07/02/20 09:00 07/01/20 12:31 DC Norepinephrine Bitartrate 8 mg/ Dextrose 258 ml @ 0 mls/hr CONT PRN 06/30/20 11:00 UNV Ondansetron HCl (Zofran Odt) 4 mg Q8HRS PRN 07/01/20 12:30 Ondansetron HCl (Zofran) 4 mg PRN Q6HRS PRN 06/30/20 10:45 Oxycodone/ Acetaminophen (Percocet 5/325) 1 tab PRN Q4HRS PRN 07/01/20 12:30 Pantoprazole Sodium (Protonix) 40 mg BIDAC 07/01/20 16:30 07/05/20 09:07 40 MG Piperacillin Sod/ Tazobactam Sod (Zosyn Per Pharmacy) 1 each PRN DAILY PRN 06/30/20 09:15 07/04/20 11:18 DC Piperacillin Sod/ Tazobactam Sod 2.25 gm/Sodium Chloride 50 ml @ 100 mls/hr Q6HRS 06/30/20 12:00 07/04/20 11:16 DC 07/04/20 06:14 100 MLS/HR Piperacillin Sod/ Tazobactam Sod 3.375 gm/Sodium Chloride 50 ml @ 100 mls/hr 1X ONCE 06/30/20 06:30 06/30/20 06:59 DC 06/30/20 07:54 100 MLS/HR Potassium Chloride/Water 100 ml @ 100 mls/hr Q1H 07/03/20 11:00 07/03/20 12:59 DC 07/03/20 13:37 100 MLS/HR Prochlorperazine (Compazine) 25 mg PRN Q12HR PRN 06/30/20 10:45 Senna/Docusate Sodium (Senna Plus) 2 tab PRN BID PRN 07/01/20 12:30 Sodium Bicarbonate (Sodium Bicarbonate) 1,300 mg TID 07/01/20 14:00 07/01/20 18:09 DC Sodium Bicarbonate (Sodium Bicarb Adult 8.4% Syr) 100 meq 1X ONCE 07/01/20 08:45 07/01/20 08:49 DC 07/01/20 08:58 100 MEQ Sodium Chloride 1,000 ml @ 400 mls/hr Q2H30M PRN 07/01/20 11:30 07/01/20 23:29 DC Sodium Chloride (Normal Saline Flush) 3 ml QSHIFT PRN 06/30/20 10:45 Sodium Phosphate 20 mmol/Sodium Chloride 256.6667 ml @ 64.167 m... 1X ONCE 07/02/20 13:00 07/02/20 16:59 DC 07/02/20 13:26 64.167 MLS/HR Vancomycin HCl 1 gm/Sodium Chloride 250 ml @ 250 mls/hr 1X ONCE 06/30/20 06:45 06/30/20 07:44 DC 06/30/20 08:37 250 MLS/HR Results All relevant outside records, renal labs, imaging studies, telemetry/EKG's were reviewed. Justicifation of Admission Dx: Justifications for Admission: Justification of Admission Dx: Yes ELEANOR MAHAN MD Jul 05, 2020 10:48
[2020-07-05 11:00] VITALS: BP 117/72
--- NOTE | 2020-07-05 12:10 | PDOC ---
PULMONARY PROGRESS NOTES DATE: 07/05/20 TIME: 12:09 Subjective Patient remains on room air up to the chair today, denies any shortness of breath or increased cough Afebrile overnight Vitals Vital Signs Date Time Temp Pulse Resp B/P (MAP) Pulse Ox O2 Delivery O2 Flow Rate FiO2 07/05/20 11:00 97.8 71 16 117/72 (87) 94 Room Air 97.8 ROS: No Nausea, No Chest Pain, No Abdominal Pain, No Increase Cough General: Alert, Oriented X4 HEENT: Other Lungs: Clear Cardiovascular: S1, S2 Abdomen: Soft Neuro Exam: Alert Extremities: No Edema Skin: Warm, Dry Labs Laboratory Tests Test 07/04/20 06:35 White Blood Count 5.5 x10^3/uL (4.0-11.0) Red Blood Count 2.64 x10^6/uL (3.50-5.40) Hemoglobin 8.3 g/dL (12.0-15.5) Hematocrit 25.8 % (36.0-47.0) Mean Corpuscular Volume 98 fL (79-100) Mean Corpuscular Hemoglobin 31 pg (25-35) Mean Corpuscular Hemoglobin Concent 32 g/dL (31-37) Red Cell Distribution Width 14.8 % (11.5-14.5) Platelet Count 133 x10^3/uL (140-400) Neutrophils (%) (Auto) 71 % (31-73) Lymphocytes (%) (Auto) 17 % (24-48) Monocytes (%) (Auto) 8 % (0-9) Eosinophils (%) (Auto) 4 % (0-3) Basophils (%) (Auto) 1 % (0-3) Neutrophils # (Auto) 3.8 x10^3/uL (1.8-7.7) Lymphocytes # (Auto) 0.9 x10^3/uL (1.0-4.8) Monocytes # (Auto) 0.4 x10^3/uL (0.0-1.1) Eosinophils # (Auto) 0.2 x10^3/uL (0.0-0.7) Basophils # (Auto) 0.0 x10^3/uL (0.0-0.2) Sodium Level 143 mmol/L (136-145) Potassium Level 4.0 mmol/L (3.5-5.1) Chloride Level 114 mmol/L (98-107) Carbon Dioxide Level 18 mmol/L (21-32) Anion Gap 11 (6-14) Blood Urea Nitrogen 17 mg/dL (7-20) Creatinine 1.3 mg/dL (0.6-1.0) Estimated GFR (Cockcroft-Gault) 40.0 BUN/Creatinine Ratio 13 (6-20) Glucose Level 60 mg/dL (70-99) Calcium Level 7.9 mg/dL (8.5-10.1) Total Bilirubin 0.2 mg/dL (0.2-1.0) Aspartate Amino Transf (AST/SGOT) 12 U/L (15-37) Alanine Aminotransferase (ALT/SGPT) 17 U/L (14-59) Alkaline Phosphatase 72 U/L (46-116) Total Protein 4.7 g/dL (6.4-8.2) Albumin 1.2 g/dL (3.4-5.0) Albumin/Globulin Ratio 0.3 (1.0-1.7) Medications Active Scripts Medications Dose Route/Sig Max Daily Dose Days Date Category Percocet 5-325 Mg Tablet (Oxycodone/Acetaminophen) 1 Each Tablet 1 Tab PO PRN Q4HRS PRN 6 09/17/18 Rx Tylenol (Acetaminophen) 325 Mg Tablet 650 Mg PO PRN Q4HRS PRN 30 09/17/18 Rx Ativan (Lorazepam) 0.5 Mg Tablet 0.5 Mg PO PRN Q4HRS PRN 15 09/17/18 Rx Furosemide 40 Mg Tablet 40 Mg PO DAILY 30 09/17/18 Rx Senna-Time S Tablet (Sennosides/Docusate Sodium) 1 Each Tablet 2 Tab PO PRN BID PRN 30 09/17/18 Rx Enoxaparin Sodium 30 Mg/0.3 Ml Disp.syrin 30 Mg SQ Q24H 14 09/17/18 Rx Calcium + Vitamin D Tablet (Calcium Carbonate/Vitamin D3) 1 Each Tablet 2 Each PO DAILY 09/14/18 Reported Multivitamins (Multivitamin) 1 Each Tablet 1 Tab PO DAILY 09/14/18 Reported Sodium Bicarbonate 650 Mg Tablet 2 Tab PO TID 09/14/18 Reported Levothyroxine Sodium 100 Mcg Tablet 100 Mcg PO DAILYAC 05/02/15 Reported Abilify (Aripiprazole) 10 Mg Tablet 2 Tab PO HS 05/01/15 Reported Wellbutrin Sr (Bupropion Hcl) 150 Mg Tablet.er 150 Mg PO DAILY 05/01/15 Reported Omeprazole 40 Mg Capsule.dr 40 Mg PO BID 10/13/13 Reported Gabapentin 600 Mg Tablet 1,200 Mg PO BID 10/13/13 Reported Mirtazapine 30 Mg Tablet 30 Mg PO HS 10/13/13 Reported Citalopram Hbr (Citalopram Hydrobromide) 40 Mg Tablet 20 Mg PO DAILY 10/13/13 Reported Comments CXR IMPRESSION: 1. Left lung base and left hilar airspace opacities likely consolidative process as pneumonia. 2. Support lines/tubes as above. ECHO <Conclusion> The left ventricular systolic function is normal and the ejection fraction is within normal range. The Ejection Fraction is 60-65%. There is normal LV segmental wall motion. There is moderate to severe concentric left ventricular hypertrophy. Doppler and Color Flow revealed mild aortic regurgitation. Impression . IMPRESSION: 1. Acute hypoxic respiratory failure secondary to combination of pneumonia and septic shock. 2. Septic shock, likely source is pneumonia and a component of volume depletion as well. 3. Acute kidney injury, likely component of hypovolemia. 4. Severe protein-calorie malnutrition. 5. No significant tobacco history. Plan . RECOMMENDATIONS: Patient remains stable from a pulmonary standpoint remains on room air Follow infectious disease recommendations in regards to antibiotics, cultures growing KLEBSIELLA PNEUMONIAE in urine --on Rocephin Continue Marinol for appetite Follow speech recommendations, continue dysphagia diet, aspiration precaution Follow cardiology recommendations, echocardiogram reviewed EF within normal limits Physical therapy/Occupational Therapy DVT/GI prophylaxis Discussed with RN Patient is stable from a pulmonary respiratory standpoint we will sign off at t his time please call with any questions or concerns thank you CAROLINA CANNON MD Jul 05, 2020 12:10
[2020-07-05 12:48] LABS: BASO % 1 % (0-3); EOS # 0.2 x10^3/uL (0.0-0.7); EOS % 3 % (0-3); HEMATOCRIT 25.8 % (36.0-47.0); HEMOGLOBIN 8.2 g/dL (12.0-15.5); LYMPH # 1.2 x10^3/uL (1.0-4.8); LYMPH % 22 % (24-48); MEAN CORPUSCULAR HEMOGLOBIN 31 pg (25-35); MEAN CORPUSCULAR HGB CONC 32 g/dL (31-37); MEAN CORPUSCULAR VOLUME 99 fL (79-100); MONO # 0.5 x10^3/uL (0.0-1.1); MONO % 8 % (0-9); NEUT # 3.8 x10^3/uL (1.8-7.7); NEUT % 66 % (31-73); PLATELET COUNT 164 x10^3/uL (140-400); RED BLOOD COUNT 2.61 x10^6/uL (3.50-5.40); RED CELL DISTRIBUTION WIDTH 15.2 % (11.5-14.5); WHITE BLOOD COUNT 5.7 x10^3/uL (4.0-11.0)
[2020-07-05 13:20] LABS: ALBUMIN 1.1 g/dL (3.4-5.0); ALBUMIN/GLOBULIN RATIO 0.3 (1.0-1.7); CREATININE 1.2 mg/dL (0.6-1.0); GFR 43.9; POTASSIUM 3.4 mmol/L (3.5-5.1); TOTAL BILIRUBIN 0.1 mg/dL (0.2-1.0); TOTAL PROTEIN 4.6 g/dL (6.4-8.2)
[2020-07-05] MEDS: DRONABINOL 2.5 MG CAPSULE. PO SCH ×2 (13:36→17:30)
[2020-07-05] MEDS: cefTRIAXone IV Push 2 GM VIAL. IVP SCH (13:37)
--- NOTE | 2020-07-05 15:00 | PDOC ---
PROGRESS NOTES Date of Service: DATE: 07/05/20 TIME: 14:59 Chief Complaint Chief Complaint SEVERE SEPSIS Left lung base airspace consolidative process as pneumonia. Small left pleural effusion. suspect aspiration and COVID 19 UTI NIC, HYPOPERFUSION, SHOCK PUI on admit severe protein malnutrition History of Present Illness History of Present Illness 07/05/2020 Patient seen and examined in the cardiac unit she feels well will try PT and OT, Discussed with RN looking better than seemed prev. Vitals Vitals Vital Signs Date Time Temp Pulse Resp B/P (MAP) Pulse Ox O2 Delivery O2 Flow Rate FiO2 07/05/20 11:00 97.8 71 16 117/72 (87) 94 Room Air 97.8 Physical Exam Physical Exam GENERAL: Alert, awake, weak-appearing female, lying in bed comfortably, in no acute distress, answers most of the questions. HEENT: Normocephalic, atraumatic, anicteric. NECK: Supple. Right IJ clean LUNGS: Decreased breath sounds at the bases. HEART: S1, S2. ABDOMEN: Soft, nontender, bowel sounds present. EXTREMITIES: No edema, no cyanosis. DERMATOLOGIC: Mild skin breakdown on the right lower extremity, superficial, not infected. NEUROLOGIC: Generalized weakness, somewhat confused, alert, awake. MUSCULOSKELETAL: No joint swelling. Weakness present. Left upper extremity PICC line clean General: Alert Heart: Regular rate, Normal S1, Normal S2, No murmurs Lungs: Clear Abdomen: Normal bowel sounds, Soft, No tenderness Extremities: No clubbing, No edema, No tenderness/swelling Labs LABS Laboratory Tests Test 07/05/20 12:30 White Blood Count 5.7 x10^3/uL (4.0-11.0) Red Blood Count 2.61 x10^6/uL (3.50-5.40) Hemoglobin 8.2 g/dL (12.0-15.5) Hematocrit 25.8 % (36.0-47.0) Mean Corpuscular Volume 99 fL (79-100) Mean Corpuscular Hemoglobin 31 pg (25-35) Mean Corpuscular Hemoglobin Concent 32 g/dL (31-37) Red Cell Distribution Width 15.2 % (11.5-14.5) Platelet Count 164 x10^3/uL (140-400) Neutrophils (%) (Auto) 66 % (31-73) Lymphocytes (%) (Auto) 22 % (24-48) Monocytes (%) (Auto) 8 % (0-9) Eosinophils (%) (Auto) 3 % (0-3) Basophils (%) (Auto) 1 % (0-3) Neutrophils # (Auto) 3.8 x10^3/uL (1.8-7.7) Lymphocytes # (Auto) 1.2 x10^3/uL (1.0-4.8) Monocytes # (Auto) 0.5 x10^3/uL (0.0-1.1) Eosinophils # (Auto) 0.2 x10^3/uL (0.0-0.7) Basophils # (Auto) 0.0 x10^3/uL (0.0-0.2) Sodium Level 145 mmol/L (136-145) Potassium Level 3.4 mmol/L (3.5-5.1) Chloride Level 117 mmol/L (98-107) Carbon Dioxide Level 16 mmol/L (21-32) Anion Gap 12 (6-14) Blood Urea Nitrogen 14 mg/dL (7-20) Creatinine 1.2 mg/dL (0.6-1.0) Estimated GFR (Cockcroft-Gault) 43.9 BUN/Creatinine Ratio 12 (6-20) Glucose Level 67 mg/dL (70-99) Calcium Level 7.0 mg/dL (8.5-10.1) Total Bilirubin 0.1 mg/dL (0.2-1.0) Aspartate Amino Transf (AST/SGOT) 12 U/L (15-37) Alanine Aminotransferase (ALT/SGPT) 17 U/L (14-59) Alkaline Phosphatase 65 U/L (46-116) Total Protein 4.6 g/dL (6.4-8.2) Albumin 1.1 g/dL (3.4-5.0) Albumin/Globulin Ratio 0.3 (1.0-1.7) Assessment and Plan Assessmemt and Plan Problems Medical Problems: (1) HCAP (healthcare-associated pneumonia) Status: Acute (2) Weakness Status: Acute Comment Review of Relevant I have reviewed the following items isreal (where applicable) has been applied. Labs Laboratory Tests Test 07/04/20 06:35 07/05/20 12:30 White Blood Count 5.5 x10^3/uL (4.0-11.0) 5.7 x10^3/uL (4.0-11.0) Red Blood Count 2.64 x10^6/uL (3.50-5.40) 2.61 x10^6/uL (3.50-5.40) Hemoglobin 8.3 g/dL (12.0-15.5) 8.2 g/dL (12.0-15.5) Hematocrit 25.8 % (36.0-47.0) 25.8 % (36.0-47.0) Mean Corpuscular Volume 98 fL (79-100) 99 fL (79-100) Mean Corpuscular Hemoglobin 31 pg (25-35) 31 pg (25-35) Mean Corpuscular Hemoglobin Concent 32 g/dL (31-37) 32 g/dL (31-37) Red Cell Distribution Width 14.8 % (11.5-14.5) 15.2 % (11.5-14.5) Platelet Count 133 x10^3/uL (140-400) 164 x10^3/uL (140-400) Neutrophils (%) (Auto) 71 % (31-73) 66 % (31-73) Lymphocytes (%) (Auto) 17 % (24-48) 22 % (24-48) Monocytes (%) (Auto) 8 % (0-9) 8 % (0-9) Eosinophils (%) (Auto) 4 % (0-3) 3 % (0-3) Basophils (%) (Auto) 1 % (0-3) 1 % (0-3) Neutrophils # (Auto) 3.8 x10^3/uL (1.8-7.7) 3.8 x10^3/uL (1.8-7.7) Lymphocytes # (Auto) 0.9 x10^3/uL (1.0-4.8) 1.2 x10^3/uL (1.0-4.8) Monocytes # (Auto) 0.4 x10^3/uL (0.0-1.1) 0.5 x10^3/uL (0.0-1.1) Eosinophils # (Auto) 0.2 x10^3/uL (0.0-0.7) 0.2 x10^3/uL (0.0-0.7) Basophils # (Auto) 0.0 x10^3/uL (0.0-0.2) 0.0 x10^3/uL (0.0-0.2) Sodium Level 143 mmol/L (136-145) 145 mmol/L (136-145) Potassium Level 4.0 mmol/L (3.5-5.1) 3.4 mmol/L (3.5-5.1) Chloride Level 114 mmol/L (98-107) 117 mmol/L (98-107) Carbon Dioxide Level 18 mmol/L (21-32) 16 mmol/L (21-32) Anion Gap 11 (6-14) 12 (6-14) Blood Urea Nitrogen 17 mg/dL (7-20) 14 mg/dL (7-20) Creatinine 1.3 mg/dL (0.6-1.0) 1.2 mg/dL (0.6-1.0) Estimated GFR (Cockcroft-Gault) 40.0 43.9 BUN/Creatinine Ratio 13 (6-20) 12 (6-20) Glucose Level 60 mg/dL (70-99) 67 mg/dL (70-99) Calcium Level 7.9 mg/dL (8.5-10.1) 7.0 mg/dL (8.5-10.1) Total Bilirubin 0.2 mg/dL (0.2-1.0) 0.1 mg/dL (0.2-1.0) Aspartate Amino Transf (AST/SGOT) 12 U/L (15-37) 12 U/L (15-37) Alanine Aminotransferase (ALT/SGPT) 17 U/L (14-59) 17 U/L (14-59) Alkaline Phosphatase 72 U/L (46-116) 65 U/L (46-116) Total Protein 4.7 g/dL (6.4-8.2) 4.6 g/dL (6.4-8.2) Albumin 1.2 g/dL (3.4-5.0) 1.1 g/dL (3.4-5.0) Albumin/Globulin Ratio 0.3 (1.0-1.7) 0.3 (1.0-1.7) Laboratory Tests Test 07/05/20 12:30 White Blood Count 5.7 x10^3/uL (4.0-11.0) Red Blood Count 2.61 x10^6/uL (3.50-5.40) Hemoglobin 8.2 g/dL (12.0-15.5) Hematocrit 25.8 % (36.0-47.0) Mean Corpuscular Volume 99 fL (79-100) Mean Corpuscular Hemoglobin 31 pg (25-35) Mean Corpuscular Hemoglobin Concent 32 g/dL (31-37) Red Cell Distribution Width 15.2 % (11.5-14.5) Platelet Count 164 x10^3/uL (140-400) Neutrophils (%) (Auto) 66 % (31-73) Lymphocytes (%) (Auto) 22 % (24-48) Monocytes (%) (Auto) 8 % (0-9) Eosinophils (%) (Auto) 3 % (0-3) Basophils (%) (Auto) 1 % (0-3) Neutrophils # (Auto) 3.8 x10^3/uL (1.8-7.7) Lymphocytes # (Auto) 1.2 x10^3/uL (1.0-4.8) Monocytes # (Auto) 0.5 x10^3/uL (0.0-1.1) Eosinophils # (Auto) 0.2 x10^3/uL (0.0-0.7) Basophils # (Auto) 0.0 x10^3/uL (0.0-0.2) Sodium Level 145 mmol/L (136-145) Potassium Level 3.4 mmol/L (3.5-5.1) Chloride Level 117 mmol/L (98-107) Carbon Dioxide Level 16 mmol/L (21-32) Anion Gap 12 (6-14) Blood Urea Nitrogen 14 mg/dL (7-20) Creatinine 1.2 mg/dL (0.6-1.0) Estimated GFR (Cockcroft-Gault) 43.9 BUN/Creatinine Ratio 12 (6-20) Glucose Level 67 mg/dL (70-99) Calcium Level 7.0 mg/dL (8.5-10.1) Total Bilirubin 0.1 mg/dL (0.2-1.0) Aspartate Amino Transf (AST/SGOT) 12 U/L (15-37) Alanine Aminotransferase (ALT/SGPT) 17 U/L (14-59) Alkaline Phosphatase 65 U/L (46-116) Total Protein 4.6 g/dL (6.4-8.2) Albumin 1.1 g/dL (3.4-5.0) Albumin/Globulin Ratio 0.3 (1.0-1.7) Microbiology 06/30/20 Blood Culture - Final, Complete NO GROWTH AFTER 5 DAYS 06/30/20 Urine Culture - Final, Complete 06/30/20 Antimicrobic Susceptibility - Final, Complete Medications Current Medications Sodium Chloride 500 ml @ 500 mls/hr 1X ONCE IV Last administered on 06/30/20at 04:00; Start 06/30/20 at 04:00; Stop 06/30/20 at 04:59; Status DC Ondansetron HCl (Zofran) 4 mg 1X ONCE IVP Last administered on 06/30/20at 04:45; Start 06/30/20 at 04:45; Stop 06/30/20 at 04:53; Status DC Vancomycin HCl 1 gm/Sodium Chloride 250 ml @ 250 mls/hr 1X ONCE IV Last administered on 06/30/20at 08:37; Start 06/30/20 at 06:45; Stop 06/30/20 at 07:44; Status DC Piperacillin Sod/ Tazobactam Sod 3.375 gm/Sodium Chloride 50 ml @ 100 mls/hr 1X ONCE IV Last administered on 06/30/20at 07:54; Start 06/30/20 at 06:30; Stop 06/30/20 at 06:59; Status DC Ondansetron HCl (Zofran) 4 mg PRN Q8HRS PRN IV NAUSEA/VOMITING; Start 06/30/20 at 07:00; Stop 07/01/20 at 06:59; Status DC Sodium Chloride 1,000 ml @ 75 mls/hr [id number] IV Last administered on 06/30/20at 08:40; Start 06/30/20 at 07:00; Stop 07/01/20 at 06:59; Status DC Acetaminophen (Tylenol) 650 mg PRN Q4HRS PRN PO FEVER > 100.3'F; Start 06/30/20 at 07:00; Stop 07/01/20 at 06:59; Status DC Piperacillin Sod/ Tazobactam Sod (Zosyn Per Pharmacy) 1 each PRN DAILY PRN MC SEE COMMENTS; Start 06/30/20 at 09:15; Stop 07/04/20 at 11:18; Status DC Norepinephrine Bitartrate 8 mg/ Dextrose 258 ml @ 11.61 mls/ hr CONT PRN IV PER PROTOCOL Last administered on 07/02/20at 13:30; Start 06/30/20 at 09:15 Piperacillin Sod/ Tazobactam Sod 2.25 gm/Sodium Chloride 50 ml @ 100 mls/hr Q6HRS IV Last administered on 07/04/20at 06:14; Start 06/30/20 at 12:00; Stop 07/04/20 at 11:16; Status DC Acetaminophen (Tylenol) 650 mg PRN Q6HRS PRN PO Headaches, Temp > 101.5'; Star t 06/30/20 at 10:45; Stop 07/02/20 at 10:58; Status DC Ondansetron HCl (Zofran) 4 mg PRN Q6HRS PRN IVP NAUSEA/VOMITING; Start 06/30/20 at 10:45 Prochlorperazine (Compazine) 25 mg PRN Q12HR PRN [place] NAUSEA/VOMITING; Start 06/30/20 at 10:45 Famotidine (Pepcid Vial) 20 mg DAILY IVP Last administered on 07/01/20at 07:35; Start 06/30/20 at 12:00; Stop 07/02/20 at 08:29; Status DC Info (Icu Electrolyte Protocol) 1 ea DAILY MC Last administered on 07/02/20at 08:31; Start 07/01/20 at 09:00 Heparin Sodium (Porcine) (Heparin Sodium) 5,000 unit Q8HRS SQ Last administered on 07/05/20at 13:45; Start 06/30/20 at 14:00 Sodium Chloride (Normal Saline Flush) 3 ml QSHIFT PRN IV AFTER MEDS AND BLOOD DRAWS; Start 06/30/20 at 10:45 Sodium Chloride 1,000 ml @ 100 mls/hr Q10H IV Last administered on 07/05/20at 09:24; Start 06/30/20 at 10:45 Hydromorphone HCl (Dilaudid) 0.2 mg PRN Q1HR PRN IV PAIN; Start 06/30/20 at 10:45; Status UNV Bisacodyl (Dulcolax Supp) 10 mg PRN DAILY PRN [place] CONSTIPATION; Start 06/30/20 at 10:45 Sodium Chloride 1,000 ml @ 1,650 mls/hr Q37M IV Last administered on 06/30/20at 23:24; Start 06/30/20 at 11:00; Stop 06/30/20 at 12:00; Status DC Sodium Chloride 500 ml @ 1,000 mls/hr PRN Q30MIN PRN IV SEE COMMENTS; Start 06/30/20 at 11:00 Norepinephrine Bitartrate 8 mg/ Dextrose 258 ml @ 0 mls/hr CONT PRN IV SEE I/O RECORD; Start 06/30/20 at 11:00; Status UNV Magnesium Sulfate/ Dextrose 100 ml @ 100 mls/hr 1X ONCE IV Last administered on 06/30/20at 23:18; Start 06/30/20 at 17:30; Stop 06/30/20 at 18:29; Status DC Potassium Chloride/Water 100 ml @ 100 mls/hr 1X ONCE IV Last administered on 07/01/20at 07:43; Start 07/01/20 at 07:30; Stop 07/01/20 at 08:29; Status DC Sodium Bicarbonate (Sodium Bicarb Adult 8.4% Syr) 100 meq 1X ONCE IV Last administered on 07/01/20at 08:58; Start 07/01/20 at 08:45; Stop 07/01/20 at 08:49; Status DC Sodium Chloride 1,000 ml @ 1,000 mls/hr Q1H PRN IV hypotension; Start 07/01/20 at 11:30; Stop 07/01/20 at 17:29; Status DC Sodium Chloride 1,000 ml @ 400 mls/hr Q2H30M PRN IV PATENCY; Start 07/01/20 at 11:30; Stop 07/01/20 at 23:29; Status DC Info (PHARMACY MONITORING -- do not chart) 1 each PRN DAILY PRN MC SEE COMMENTS; Start 07/01/20 at 11:30; Stop 07/03/20 at 10:32; Status DC Dronabinol (Marinol) 2.5 mg BIDACLD PO Last administered on 07/05/20at 13:36; Start 07/01/20 at 16:30 Lidocaine HCl (Buffered Lidocaine 1%) 3 ml STK-MED ONCE .ROUTE ; Start 07/01/20 at 11:44; Stop 07/01/20 at 11:45; Status DC Heparin Sodium (Porcine) (Heparin Sodium) 10,000 unit STK-MED ONCE .ROUTE ; Start 07/01/20 at 12:10; Stop 07/01/20 at 12:10; Status DC Acetaminophen (Tylenol) 650 mg PRN Q4HRS PRN PO TEMP OVER 100.4F OR MILD PAIN; Start 07/01/20 at 12:30 Carvedilol (Coreg) 6.25 mg BIDWMEALS PO Last administered on 07/05/20at 09:06; Start 07/01/20 at 17:00 Ferrous Sulfate (Feosol) 325 mg DAILY PO Last administered on 07/05/20at 09:02; Start 07/01/20 at 13:00 Furosemide (Lasix) 40 mg DAILY PO ; Start 07/02/20 at 09:00; Status UNV Lorazepam (Ativan) 0.5 mg PRN Q4HRS PRN PO ANXIETY/AGITATION, 2ND CHOICE; Start 07/01/20 at 12:30; Stop 07/04/20 at 08:17; Status DC Oxycodone/ Acetaminophen (Percocet 5/325) 1 tab PRN Q4HRS PRN PO MODERATE PAIN, SEVERE PAIN; Start 07/01/20 at 12:30 Senna/Docusate Sodium (Senna Plus) 2 tab PRN BID PRN PO CONSTIPATION; Start 07/01/20 at 12:30 Sodium Bicarbonate (Sodium Bicarbonate) 1,300 mg TID PO ; Start 07/01/20 at 14:00; Stop 07/01/20 at 18:09; Status DC Aripiprazole (Abilify) 30 mg DAILY PO Last administered on 07/03/20at 08:57; Start 07/01/20 at 13:00; Stop 07/03/20 at 14:00; Status DC Bupropion HCl (Wellbutrin Xl) 300 mg DAILY PO Last administered on 07/05/20at 09:02; Start 07/01/20 at 13:00 Calcium/Vitamin D (Oscal D 500mg/ 200uts) 1 tab BIDWMEALS PO Last administered on 07/05/20at 09:03; Start 07/01/20 at 17:00 Citalopram Hydrobromide (CeleXA) 20 mg DAILY PO Last administered on 07/03/20at 08:57; Start 07/01/20 at 13:00; Stop 07/03/20 at 14:00; Status DC Clonazepam (KlonoPIN) 1 mg BID PO Last administered on 07/03/20at 08:58; Start 07/01/20 at 13:00; Stop 07/03/20 at 13:45; Status DC Gabapentin (Neurontin) 1,200 mg QHS PO Last administered on 07/04/20at 21:23; Start 07/01/20 at 21:00 Levothyroxine Sodium (Synthroid) 100 mcg DAILY06 PO Last administered on 07/05/20at 06:32; Start 07/01/20 at 13:00 Amylase/Lipase/ Protease (Zenpep 10,000) 1 cap TIDWMEALS PO Last administered on 07/05/20at 13:36; Start 07/01/20 at 17:00 Mirtazapine (Remeron) 30 mg QHS PO Last administered on 07/02/20at 21:12; Start 07/01/20 at 21:00; Stop 07/03/20 at 14:00; Status DC Multivitamins (Thera M Plus) 1 tab DAILY PO Last administered on 07/05/20at 09:02; Start 07/01/20 at 13:00 Pantoprazole Sodium (Protonix) 40 mg BIDAC PO Last administered on 07/05/20at 09:07; Start 07/01/20 at 16:30 Ondansetron HCl (Zofran Odt) 4 mg Q8HRS PRN PO NAUSEA/VOMITING; Start 07/01/20 at 12:30 Non-Formulary Medication (Selenium ) 0.5 cap DAILY PO ; Start 07/02/20 at 09:00; Stop 07/01/20 at 12:31; Status DC Lidocaine HCl (Buffered Lidocaine 1%) 6 ml 1X ONCE INJ Last administered on 07/01/20at 12:49; Start 07/01/20 at 12:30; Stop 07/01/20 at 12:32; Status DC Heparin Sodium (Porcine) (Heparin Sodium) 2,500 unit 1X ONCE INT CAT Last administered on 07/01/20at 12:49; Start 07/01/20 at 12:30; Stop 07/01/20 at 12:32; Status DC Digoxin (Lanoxin) 500 mcg 1X ONCE IV Last administered on 07/01/20at 16:44; Start 07/01/20 at 16:00; Stop 07/01/20 at 16:01; Status DC Aspirin (Ecotrin) 81 mg [id number] PO Last administered on 07/05/20at 09:03; Start 07/02/20 at 08:00 Potassium Chloride/Water 100 ml @ 100 mls/hr Q1H IV Last administered on 07/02/20at 09:03; Start 07/02/20 at 07:15; Stop 07/02/20 at 09:14; Status DC Magnesium Sulfate 100 ml @ 25 mls/hr 1X ONCE IV Last administered on 07/02/20at 07:15; Start 07/02/20 at 07:15; Stop 07/02/20 at 11:14; Status DC Sodium Phosphate 20 mmol/Sodium Chloride 256.6667 ml @ 62.5 mls/hr 1X ONCE IV ; Start 07/02/20 at 11:00; Stop 07/02/20 at 15:06; Status UNV Sodium Phosphate 20 mmol/Sodium Chloride 256.6667 ml @ 64.167 m... 1X ONCE IV Last administered on 07/02/20at 13:26; Start 07/02/20 at 13:00; Stop 07/02/20 at 16:59; Status DC Potassium Chloride/Water 100 ml @ 100 mls/hr Q1H IV Last administered on 07/03/20at 13:37; Start 07/03/20 at 11:00; Stop 07/03/20 at 12:59; Status DC Clonazepam (KlonoPIN) 1 mg PRN BID PRN PO ANXIETY / AGITATION Last administered on 07/03/20at 21:26; Start 07/03/20 at 13:45 Aripiprazole (Abilify) 10 mg DAILY PO Last administered on 07/05/20at 09:05; Start 07/04/20 at 09:00 Citalopram Hydrobromide (CeleXA) 10 mg DAILY PO Last administered on 07/05/20at 09:05; Start 07/04/20 at 09:00 Mirtazapine (Remeron) 15 mg QHS PO Last administered on 07/04/20at 21:23; Start 07/03/20 at 21:00 Ceftriaxone Sodium (Rocephin) 2 gm Q24H IVP Last administered on 07/05/20at 13:37; Start 07/04/20 at 12:00 Active Scripts Active Percocet 5-325 Mg Tablet (Oxycodone/Acetaminophen) 1 Each Tablet 1 Tab PO PRN Q4HRS PRN 6 Days Tylenol (Acetaminophen) 325 Mg Tablet 650 Mg PO PRN Q4HRS PRN 30 Days Furosemide 40 Mg Tablet 40 Mg PO DAILY 30 Days Senna-Time S Tablet (Sennosides/Docusate Sodium) 1 Each Tablet 2 Tab PO PRN BID PRN 30 Days Enoxaparin Sodium 30 Mg/0.3 Ml Disp.syrin 30 Mg SQ Q24H 14 Days Reported Selenium 200 Mcg Capsule 0.5 Cap PO DAILY 30 Days Marcia Stewart 36,000 Units Capsule (Lipase/Protease/Amylase) 1 Each Capsule. 1 Each PO TIDAC Zofran (Ondansetron Hcl) 4 Mg Tablet 1 Tab PO Q8HRS Mirtazapine 30 Mg Tablet 1 Tab PO QHS Levothyroxine (Levothyroxine Sodium) 100 Mcg Capsule 100 Mcg PO DAILY Ferrous Sulfate 325 Mg Tablet 1 Tab PO DAILY Vitamin D2 (Ergocalciferol (Vitamin D2)) 1,250 Mcg Capsule 1,250 Mcg PO DAILY Clonazepam 1 Mg Tablet 1 Mg PO BID Carvedilol (Carvedilol) 6.25 Mg Tablet 6.25 Mg PO BIDWMEALS Wellbutrin Xl (Bupropion Hcl) 300 Mg Tab.er.24h 1 Tab PO DAILY Abilify (Aripiprazole) 30 Mg Tablet 1 Tab PO DAILY 30 Days Calcium + Vitamin D Tablet (Calcium Carbonate/Vitamin D3) 1 Each Tablet 2 Each PO DAILY Multivitamins (Multivitamin) 1 Each Tablet 1 Tab PO DAILY Sodium Bicarbonate 650 Mg Tablet 2 Tab PO TID Omeprazole 40 Mg Capsule. 40 Mg PO BID Gabapentin 600 Mg Tablet 1,200 Mg PO BID Citalopram Hbr (Citalopram Hydrobromide) 40 Mg Tablet 20 Mg PO DAILY Vitals/I & O Vital Sign - Last 24 Hours 07/04/20 07/04/20 07/04/20 07/04/20 15:49 17:36 19:00 19:35 Temp 98.1 98.0 98.1 98.0 Pulse 77 77 64 Resp 17 16 B/P (MAP) 113/68 (83) 113/68 94/57 (69) Pulse Ox 98 93 O2 Delivery Room Air Room Air Room Air 07/04/20 07/05/20 07/05/20 07/05/20 22:54 02:59 07:00 07:50 Temp 98.2 97.3 97.4 98.5 98.2 97.3 97.4 98.5 Pulse 69 76 72 93 Resp 14 18 18 B/P (MAP) 106/64 (78) 128/75 (92) 90/50 (63) 147/72 (97) Pulse Ox 92 95 98 95 O2 Delivery Room Air Room Air Room Air Room Air 07/05/20 07/05/20 07/05/20 08:00 09:06 11:00 Temp 97.8 97.8 Pulse 74 71 Resp 16 B/P (MAP) 117/72 (87) Pulse Ox 94 O2 Delivery Room Air Room Air Intake and Output 07/04/20 07/04/20 07/05/20 15:00 23:00 07:00 Intake Total 360 ml 0 ml Output Total 240 ml 150 ml Balance 120 ml -150 ml Nutrition Consultation Dietary Evaluation: Recommendations by RD: Dietary education by RD, Increase Calorie Intake, Protein supplementation Comments: Continue w/diet as ordered: dysphagia I/thin liquids, renal REC Nepro supplements (mixed covarrubias) TID REC Ensure pudding (vanilla) BID Expected Outcomes/Goals: PO intake + bolus TFs to meet >75% est needs - not met, new goal established New goal 07/02: PO intake to meet >75% est needs Malnutrition Findings: Body Fat Depletion (Non Severe: Mild Depletion Weight Status: Appropriate Justicifation of Admission Dx: Justifications for Admission: Justification of Admission Dx: Yes RONY COOK MD Jul 05, 2020 14:59
--- NOTE | 2020-07-05 15:48 | PDOC ---
PROGRESS NOTES Date of Service: DATE: 07/05/20 TIME: 15:45 Subjective Subjective Feeling better with improvement in dyspnea Objective Objective Vital Signs Date Time Temp Pulse Resp B/P (MAP) Pulse Ox O2 Delivery O2 Flow Rate FiO2 07/05/20 11:00 97.8 71 16 117/72 (87) 94 Room Air 97.8 Intake and Output 07/05/20 07:00 Intake Total 360 ml Output Total 390 ml Balance -30 ml Intake Oral 360 ml Output Urine Total 390 ml Gastric Drainage Total 0 ml Physical Exam Abdomen: Normal bowel sounds, Soft, No tenderness Heart: Regular rate Extremities: No clubbing, Other (1+ pitting edema) General: Alert HEENT: Atraumatic Lungs: Normal air movement, Other (Scattered crepitations bilaterally) Psych/Mental Status: Mood NL Diagnosis RENAL FAILURE: Acute (Acute tubular necrosis) Assessment Assessment 1. Sepsis/shock with HCAP and UTI. Covid negative. Off pressors. Continue antibiotics per ID team. 2. Acute on chronic renal insufficiency. Patient received hemodialysis in ICU. Nephrology holding off any further dialysis. 3. Weakness/deconditioning/debility 4. Acute on chronic diastolic CHF: induced by sepsis and severe NIC, better compensated. 5. PAFIB with RVR: Newly diagnosed, presently back in sinus rhythm. EF and WM nml 6. Mild troponin elevation: type 2 peaked at 0.05 with above culprits. We will consider ischemic work-up as an outpatient. 7. Hypothyroidism: TSH on goal 8. 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 Normocytic anemia Plan Plan of Care Problems Medical Problems: (1) HCAP (healthcare-associated pneumonia) Status: Acute (2) Weakness Status: Acute Comment Review of Relevant I have reviewed the following items isreal (where applicable) has been applied. Labs Laboratory Tests Test 07/05/20 12:30 White Blood Count 5.7 x10^3/uL (4.0-11.0) Red Blood Count 2.61 x10^6/uL (3.50-5.40) Hemoglobin 8.2 g/dL (12.0-15.5) Hematocrit 25.8 % (36.0-47.0) Mean Corpuscular Volume 99 fL (79-100) Mean Corpuscular Hemoglobin 31 pg (25-35) Mean Corpuscular Hemoglobin Concent 32 g/dL (31-37) Red Cell Distribution Width 15.2 % (11.5-14.5) Platelet Count 164 x10^3/uL (140-400) Neutrophils (%) (Auto) 66 % (31-73) Lymphocytes (%) (Auto) 22 % (24-48) Monocytes (%) (Auto) 8 % (0-9) Eosinophils (%) (Auto) 3 % (0-3) Basophils (%) (Auto) 1 % (0-3) Neutrophils # (Auto) 3.8 x10^3/uL (1.8-7.7) Lymphocytes # (Auto) 1.2 x10^3/uL (1.0-4.8) Monocytes # (Auto) 0.5 x10^3/uL (0.0-1.1) Eosinophils # (Auto) 0.2 x10^3/uL (0.0-0.7) Basophils # (Auto) 0.0 x10^3/uL (0.0-0.2) Sodium Level 145 mmol/L (136-145) Potassium Level 3.4 mmol/L (3.5-5.1) Chloride Level 117 mmol/L (98-107) Carbon Dioxide Level 16 mmol/L (21-32) Anion Gap 12 (6-14) Blood Urea Nitrogen 14 mg/dL (7-20) Creatinine 1.2 mg/dL (0.6-1.0) Estimated GFR (Cockcroft-Gault) 43.9 BUN/Creatinine Ratio 12 (6-20) Glucose Level 67 mg/dL (70-99) Calcium Level 7.0 mg/dL (8.5-10.1) Total Bilirubin 0.1 mg/dL (0.2-1.0) Aspartate Amino Transf (AST/SGOT) 12 U/L (15-37) Alanine Aminotransferase (ALT/SGPT) 17 U/L (14-59) Alkaline Phosphatase 65 U/L (46-116) Total Protein 4.6 g/dL (6.4-8.2) Albumin 1.1 g/dL (3.4-5.0) Albumin/Globulin Ratio 0.3 (1.0-1.7) Microbiology 06/30/20 Blood Culture - Final, Complete NO GROWTH AFTER 5 DAYS 06/30/20 Urine Culture - Final, Complete 06/30/20 Antimicrobic Susceptibility - Final, Complete Vitals/I & O Vital Sign - Last 24 Hours 07/04/20 07/04/20 07/04/20 07/04/20 15:49 17:36 19:00 19:35 Temp 98.1 98.0 98.1 98.0 Pulse 77 77 64 Resp 17 16 B/P (MAP) 113/68 (83) 113/68 94/57 (69) Pulse Ox 98 93 O2 Delivery Room Air Room Air Room Air 07/04/20 07/05/20 07/05/20 07/05/20 22:54 02:59 07:00 07:50 Temp 98.2 97.3 97.4 98.5 98.2 97.3 97.4 98.5 Pulse 69 76 72 93 Resp 14 18 16 18 B/P (MAP) 106/64 (78) 128/75 (92) 90/50 (63) 147/72 (97) Pulse Ox 92 95 98 95 O2 Delivery Room Air Room Air Room Air Room Air 07/05/20 07/05/20 07/05/20 08:00 09:06 11:00 Temp 97.8 97.8 Pulse 74 71 Resp 16 B/P (MAP) 117/72 (87) Pulse Ox 94 O2 Delivery Room Air Room Air Intake and Output 07/04/20 07/04/20 07/05/20 15:00 23:00 07:00 Intake Total 360 ml 0 ml Output Total 240 ml 150 ml Balance 120 ml -150 ml MARY FULLER MD Jul 05, 2020 15:48
[2020-07-05 19:43] VITALS: BP 124/69
[2020-07-05] MEDS: MIRTAZAPINE 15 MG TABLET PO SCH (20:46)
[2020-07-05] MEDS: GABAPENTIN 400 MG CAPSULE. PO SCH (20:46)
[2020-07-05 23:16] VITALS: BP 108/66
[2020-07-06] VITALS (7 sets, daily range): BP systolic 86–117; BP diastolic 52–69
[2020-07-06] MEDS: LEVOTHYROXINE 100 MCG TABLET PO SCH (05:53)
[2020-07-06] MEDS: IV NORMAL SALINE 1000ML BAG 1,000 ML IV SCH (05:54)
[2020-07-06] MEDS: HEPARIN for SUB-Q USE 5,000 UNIT/ML VIAL. SQ SCH ×2 (06:04→14:00)
[2020-07-06 06:27] LABS: CALCIUM 7.7 mg/dL (8.5-10.1); CREATININE 1.4 mg/dL (0.6-1.0); GFR 36.8; POTASSIUM 3.6 mmol/L (3.5-5.1)
[2020-07-06] MEDS: CARVEDILOL 6.25 MG TABLET. PO SCH (08:32)
[2020-07-06] MEDS: LIPASE/PROTEAS/AMYLAS 10/32/42 CAPSULE.DR. PO SCH ×2 (08:32→12:00)
[2020-07-06] MEDS: MULTIVITAMIN with MINERAL TABLET. PO SCH (08:32)
[2020-07-06] MEDS: FERROUS SULFATE 325 MG TABLET. PO SCH (08:33)
[2020-07-06] MEDS: ARIPiprazole 5 MG TABLET PO SCH (08:33)
[2020-07-06] MEDS: CALCIUM CARB/VIT D3 500/200 TABLET. PO SCH (08:33)
[2020-07-06] MEDS: CITALOPRAM 10 MG TABLET. PO SCH (08:33)
[2020-07-06] MEDS: ASPIRIN ENTERIC COATED 81 MG TABLET.DR. PO SCH (08:33)
[2020-07-06] MEDS: buPROPion XL 150 MG TAB.ER.24H. PO SCH (08:33)
[2020-07-06] MEDS: PANTOPRAZOLE 40 MG TABLET.DR. PO SCH ×2 (08:35→16:30)
--- NOTE | 2020-07-06 08:49 | PDOC ---
Infectious Disease Note Subjective: Subjective Patient without complaints Vital Signs: Vital Signs Vital Signs Date Time Temp Pulse Resp B/P (MAP) Pulse Ox O2 Delivery O2 Flow Rate FiO2 07/06/20 08:32 73 113/63 07/06/20 07:00 97.8 18 97 Room Air 97.8 Physical Exam: PHYSICAL EXAM GENERAL: Alert, awake, weak-appearing female, lying in bed comfortably, in no acute distress, answers most of the questions. HEENT: Normocephalic, atraumatic, anicteric. NECK: Supple. Right IJ clean LUNGS: Decreased breath sounds at the bases. HEART: S1, S2. ABDOMEN: Soft, nontender, bowel sounds present. EXTREMITIES: No edema, no cyanosis. DERMATOLOGIC: Mild skin breakdown on the right lower extremity, superficial, not infected. NEUROLOGIC: Generalized weakness, somewhat confused, alert, awake. MUSCULOSKELETAL: No joint swelling. Weakness present. Left upper extremity PICC line clean Medications: Inpatient Meds: Current Medications Medications (Trade) Dose Ordered Sig/Sumit Start Time Stop Time Status Last Admin Dose Admin Acetaminophen (Tylenol) 650 mg PRN Q4HRS PRN 07/01/20 12:30 Amylase/Lipase/ Protease (Zenpep 10,000) 1 cap TIDWMEALS 07/01/20 17:00 07/06/20 08:32 1 CAP Aripiprazole (Abilify) 10 mg DAILY 07/04/20 09:00 07/06/20 08:33 10 MG Aspirin (Ecotrin) 81 mg DAILYWBKFT 07/02/20 08:00 07/06/20 08:33 81 MG Bisacodyl (Dulcolax Supp) 10 mg PRN DAILY PRN 06/30/20 10:45 Bupropion HCl (Wellbutrin Xl) 300 mg DAILY 07/01/20 13:00 07/06/20 08:33 300 MG Calcium/Vitamin D (Oscal D 500mg/ 200uts) 1 tab BIDWMEALS 07/01/20 17:00 07/06/20 08:33 1 TAB Carvedilol (Coreg) 6.25 mg BIDWMEALS 07/01/20 17:00 07/06/20 08:32 6.25 MG Ceftriaxone Sodium (Rocephin) 2 gm Q24H 07/04/20 12:00 07/05/20 13:37 2 GM Citalopram Hydrobromide (CeleXA) 10 mg DAILY 07/04/20 09:00 07/06/20 08:33 10 MG Clonazepam (KlonoPIN) 1 mg PRN BID PRN 07/03/20 13:45 07/03/20 21:26 1 MG Digoxin (Lanoxin) 500 mcg 1X ONCE 07/01/20 16:00 07/01/20 16:01 DC 07/01/20 16:44 500 MCG Dronabinol (Marinol) 2.5 mg BIDACLD 07/01/20 16:30 07/05/20 17:30 2.5 MG Famotidine (Pepcid Vial) 20 mg DAILY 06/30/20 12:00 07/02/20 08:29 DC 07/01/20 07:35 20 MG Ferrous Sulfate (Feosol) 325 mg DAILY 07/01/20 13:00 07/06/20 08:33 325 MG Furosemide (Lasix) 40 mg DAILY 07/02/20 09:00 UNV Gabapentin (Neurontin) 1,200 mg QHS 07/01/20 21:00 07/05/20 20:46 1,200 MG Heparin Sodium (Porcine) (Heparin Sodium) 2,500 unit 1X ONCE 07/01/20 12:30 07/01/20 12:32 DC 07/01/20 12:49 2,500 UNIT Hydromorphone HCl (Dilaudid) 0.2 mg PRN Q1HR PRN 06/30/20 10:45 UNV Info (Icu Electrolyte Protocol) 1 ea DAILY 07/01/20 09:00 07/02/20 08:31 1 EA Info (PHARMACY MONITORING -- do not chart) 1 each PRN DAILY PRN 07/01/20 11:30 07/03/20 10:32 DC Levothyroxine Sodium (Synthroid) 100 mcg DAILY06 07/01/20 13:00 07/06/20 05:53 100 MCG Lidocaine HCl (Buffered Lidocaine 1%) 6 ml 1X ONCE 07/01/20 12:30 07/01/20 12:32 DC 07/01/20 12:49 6 ML Lorazepam (Ativan) 0.5 mg PRN Q4HRS PRN 07/01/20 12:30 07/04/20 08:17 DC Magnesium Sulfate 100 ml @ 25 mls/hr 1X ONCE 07/02/20 07:15 07/02/20 11:14 DC 07/02/20 07:15 25 MLS/HR Magnesium Sulfate/ Dextrose 100 ml @ 100 mls/hr 1X ONCE 06/30/20 17:30 06/30/20 18:29 DC 06/30/20 23:18 100 MLS/HR Mirtazapine (Remeron) 15 mg QHS 07/03/20 21:00 07/05/20 20:46 15 MG Multivitamins (Thera M Plus) 1 tab DAILY 07/01/20 13:00 07/06/20 08:32 1 TAB Non-Formulary Medication (Selenium ) 0.5 cap DAILY 07/02/20 09:00 07/01/20 12:31 DC Norepinephrine Bitartrate 8 mg/ Dextrose 258 ml @ 0 mls/hr CONT PRN 06/30/20 11:00 UNV Ondansetron HCl (Zofran Odt) 4 mg Q8HRS PRN 07/01/20 12:30 Ondansetron HCl (Zofran) 4 mg PRN Q6HRS PRN 06/30/20 10:45 Oxycodone/ Acetaminophen (Percocet 5/325) 1 tab PRN Q4HRS PRN 07/01/20 12:30 Pantoprazole Sodium (Protonix) 40 mg BIDAC 07/01/20 16:30 07/06/20 08:35 40 MG Piperacillin Sod/ Tazobactam Sod (Zosyn Per Pharmacy) 1 each PRN DAILY PRN 06/30/20 09:15 07/04/20 11:18 DC Piperacillin Sod/ Tazobactam Sod 2.25 gm/Sodium Chloride 50 ml @ 100 mls/hr Q6HRS 06/30/20 12:00 07/04/20 11:16 DC 07/04/20 06:14 100 MLS/HR Piperacillin Sod/ Tazobactam Sod 3.375 gm/Sodium Chloride 50 ml @ 100 mls/hr 1X ONCE 06/30/20 06:30 06/30/20 06:59 DC 06/30/20 07:54 100 MLS/HR Potassium Chloride/Water 100 ml @ 100 mls/hr Q1H 07/03/20 11:00 07/03/20 12:59 DC 07/03/20 13:37 100 MLS/HR Prochlorperazine (Compazine) 25 mg PRN Q12HR PRN 06/30/20 10:45 Senna/Docusate Sodium (Senna Plus) 2 tab PRN BID PRN 07/01/20 12:30 Sodium Bicarbonate (Sodium Bicarbonate) 1,300 mg TID 07/01/20 14:00 07/01/20 18:09 DC Sodium Bicarbonate (Sodium Bicarb Adult 8.4% Syr) 100 meq 1X ONCE 07/01/20 08:45 07/01/20 08:49 DC 07/01/20 08:58 100 MEQ Sodium Chloride 1,000 ml @ 400 mls/hr Q2H30M PRN 07/01/20 11:30 07/01/20 23:29 DC Sodium Chloride (Normal Saline Flush) 3 ml QSHIFT PRN 06/30/20 10:45 Sodium Phosphate 20 mmol/Sodium Chloride 256.6667 ml @ 64.167 m... 1X ONCE 07/02/20 13:00 07/02/20 16:59 DC 07/02/20 13:26 64.167 MLS/HR Vancomycin HCl 1 gm/Sodium Chloride 250 ml @ 250 mls/hr 1X ONCE 06/30/20 06:45 06/30/20 07:44 DC 06/30/20 08:37 250 MLS/HR Labs: Lab Laboratory Tests Test 07/05/20 12:30 07/06/20 06:00 White Blood Count 5.7 x10^3/uL (4.0-11.0) Red Blood Count 2.61 x10^6/uL (3.50-5.40) Hemoglobin 8.2 g/dL (12.0-15.5) Hematocrit 25.8 % (36.0-47.0) Mean Corpuscular Volume 99 fL (79-100) Mean Corpuscular Hemoglobin 31 pg (25-35) Mean Corpuscular Hemoglobin Concent 32 g/dL (31-37) Red Cell Distribution Width 15.2 % (11.5-14.5) Platelet Count 164 x10^3/uL (140-400) Neutrophils (%) (Auto) 66 % (31-73) Lymphocytes (%) (Auto) 22 % (24-48) Monocytes (%) (Auto) 8 % (0-9) Eosinophils (%) (Auto) 3 % (0-3) Basophils (%) (Auto) 1 % (0-3) Neutrophils # (Auto) 3.8 x10^3/uL (1.8-7.7) Lymphocytes # (Auto) 1.2 x10^3/uL (1.0-4.8) Monocytes # (Auto) 0.5 x10^3/uL (0.0-1.1) Eosinophils # (Auto) 0.2 x10^3/uL (0.0-0.7) Basophils # (Auto) 0.0 x10^3/uL (0.0-0.2) Sodium Level 145 mmol/L (136-145) 145 mmol/L (136-145) Potassium Level 3.4 mmol/L (3.5-5.1) 3.6 mmol/L (3.5-5.1) Chloride Level 117 mmol/L (98-107) 116 mmol/L (98-107) Carbon Dioxide Level 16 mmol/L (21-32) 16 mmol/L (21-32) Anion Gap 12 (6-14) 13 (6-14) Blood Urea Nitrogen 14 mg/dL (7-20) 14 mg/dL (7-20) Creatinine 1.2 mg/dL (0.6-1.0) 1.4 mg/dL (0.6-1.0) Estimated GFR (Cockcroft-Gault) 43.9 36.8 BUN/Creatinine Ratio 12 (6-20) Glucose Level 67 mg/dL (70-99) 72 mg/dL (70-99) Calcium Level 7.0 mg/dL (8.5-10.1) 7.7 mg/dL (8.5-10.1) Total Bilirubin 0.1 mg/dL (0.2-1.0) Aspartate Amino Transf (AST/SGOT) 12 U/L (15-37) Alanine Aminotransferase (ALT/SGPT) 17 U/L (14-59) Alkaline Phosphatase 65 U/L (46-116) Total Protein 4.6 g/dL (6.4-8.2) Albumin 1.1 g/dL (3.4-5.0) Albumin/Globulin Ratio 0.3 (1.0-1.7) Objective: Assessment: Leukocytosis, resolved Klebsiella UTI, Pneumonia possible aspiration Acute kidney injury on CKD Severe protein calorie malnutrition Covid negative Generalized debility hypothyroidism history of bowel obstruction, status post multiple abdominal surgeries. Plan: Plan of Care 1. Cont Ceftriaxone, 2. likely transition to po cefdinir tomorrow 3. Continue supportive care. 4. PT and OT as tolerated MITCH ASTORGA MD Jul 06, 2020 08:49
[2020-07-06] MEDS: ELECTROLYTE (ICU) PROTOCOL. MC SCH (09:00)
--- NOTE | 2020-07-06 09:11 | PDOC ---
DATE OF SERVICE DATE: 07/06/20 TIME: 09:10 SUBJECTIVE ROS Stable, no complaints OBJECTIVE Vital Signs Vital Signs Date Time Temp Pulse Resp B/P (MAP) Pulse Ox O2 Delivery O2 Flow Rate FiO2 07/06/20 08:32 73 113/63 07/06/20 07:00 97.8 18 97 Room Air 97.8 I & 0 Intake and Output 07/06/20 07:00 Intake Total 480 ml Output Total 652 ml Balance -172 ml Intake Oral 480 ml Output Urine Total 450 ml Stool Total 202 ml PHYSICAL EXAM Physical Exam GENERAL NAD , sitting up in chair HEENTanicteric, om moist , on RA NECK: Supple. LUNGS: Decreased breath sounds at the bases, non labored HEART: S1, S2. ABDOMEN: Soft, nontender, EXTREMITIES: No edema, changes of CVI + DERMATOLOGIC: No rash NEUROLOGIC: alert, awake, oriented Munoz + DIAGNOSIS/ASSESSMENT Assessment & Plan NIC - Cr of 2.7 at presentation , Oliguric POA, Sepsis/Shock , required HD x 1 (07/01 or ) Currently Non Oliguric, Cr stable, ,Clinically no indication for HD currently , supportive care , I/O (voiding trial when Munzo dced) , DC temp HDC prior to dc Recommend follow up with Dr. 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 Raya at - every 6 months, she recalls her baseline Cr 2 Acidosis -she has been on NahCo3 PO at home (per med list0 , Resume Klebsiella UTI Pneumonia possible aspiration Severe protein calorie malnutrition - Albumin very low, per special education teachers Generalized debility history of bowel obstruction, status post multiple abdominal surgeries. Acute on chronic diastolic CHF PAFIB with RVR: Newly diagnosed. EF and WM nml COMMENT/RELEVANT DATA Meds Current Medications Medications (Trade) Dose Ordered Sig/Sumit Start Time Stop Time Status Last Admin Dose Admin Acetaminophen (Tylenol) 650 mg PRN Q4HRS PRN 07/01/20 12:30 Amylase/Lipase/ Protease (Zenpep 10,000) 1 cap TIDWMEALS 07/01/20 17:00 07/06/20 08:32 1 CAP Aripiprazole (Abilify) 10 mg DAILY 07/04/20 09:00 07/06/20 08:33 10 MG Aspirin (Ecotrin) 81 mg DAILYWBKFT 07/02/20 08:00 07/06/20 08:33 81 MG Bisacodyl (Dulcolax Supp) 10 mg PRN DAILY PRN 06/30/20 10:45 Bupropion HCl (Wellbutrin Xl) 300 mg DAILY 07/01/20 13:00 07/06/20 08:33 300 MG Calcium/Vitamin D (Oscal D 500mg/ 200uts) 1 tab BIDWMEALS 07/01/20 17:00 07/06/20 08:33 1 TAB Carvedilol (Coreg) 6.25 mg BIDWMEALS 07/01/20 17:00 07/06/20 08:32 6.25 MG Ceftriaxone Sodium (Rocephin) 2 gm Q24H 07/04/20 12:00 07/05/20 13:37 2 GM Citalopram Hydrobromide (CeleXA) 10 mg DAILY 07/04/20 09:00 07/06/20 08:33 10 MG Clonazepam (KlonoPIN) 1 mg PRN BID PRN 07/03/20 13:45 07/03/20 21:26 1 MG Digoxin (Lanoxin) 500 mcg 1X ONCE 07/01/20 16:00 07/01/20 16:01 DC 07/01/20 16:44 500 MCG Dronabinol (Marinol) 2.5 mg BIDACLD 07/01/20 16:30 07/05/20 17:30 2.5 MG Famotidine (Pepcid Vial) 20 mg DAILY 06/30/20 12:00 07/02/20 08:29 DC 07/01/20 07:35 20 MG Ferrous Sulfate (Feosol) 325 mg DAILY 07/01/20 13:00 07/06/20 08:33 325 MG Furosemide (Lasix) 40 mg DAILY 07/02/20 09:00 UNV Gabapentin (Neurontin) 1,200 mg QHS 07/01/20 21:00 07/05/20 20:46 1,200 MG Heparin Sodium (Porcine) (Heparin Sodium) 2,500 unit 1X ONCE 07/01/20 12:30 07/01/20 12:32 DC 07/01/20 12:49 2,500 UNIT Hydromorphone HCl (Dilaudid) 0.2 mg PRN Q1HR PRN 06/30/20 10:45 UNV Info (Icu Electrolyte Protocol) 1 ea DAILY 07/01/20 09:00 07/02/20 08:31 1 EA Info (PHARMACY MONITORING -- do not chart) 1 each PRN DAILY PRN 07/01/20 11:30 07/03/20 10:32 DC Levothyroxine Sodium (Synthroid) 100 mcg DAILY06 07/01/20 13:00 07/06/20 05:53 100 MCG Lidocaine HCl (Buffered Lidocaine 1%) 6 ml 1X ONCE 07/01/20 12:30 07/01/20 12:32 DC 07/01/20 12:49 6 ML Lorazepam (Ativan) 0.5 mg PRN Q4HRS PRN 07/01/20 12:30 07/04/20 08:17 DC Magnesium Sulfate 100 ml @ 25 mls/hr 1X ONCE 07/02/20 07:15 07/02/20 11:14 DC 07/02/20 07:15 25 MLS/HR Magnesium Sulfate/ Dextrose 100 ml @ 100 mls/hr 1X ONCE 06/30/20 17:30 06/30/20 18:29 DC 06/30/20 23:18 100 MLS/HR Mirtazapine (Remeron) 15 mg QHS 07/03/20 21:00 07/05/20 20:46 15 MG Multivitamins (Thera M Plus) 1 tab DAILY 07/01/20 13:00 07/06/20 08:32 1 TAB Non-Formulary Medication (Selenium ) 0.5 cap DAILY 07/02/20 09:00 07/01/20 12:31 DC Norepinephrine Bitartrate 8 mg/ Dextrose 258 ml @ 0 mls/hr CONT PRN 06/30/20 11:00 UNV Ondansetron HCl (Zofran Odt) 4 mg Q8HRS PRN 07/01/20 12:30 Ondansetron HCl (Zofran) 4 mg PRN Q6HRS PRN 06/30/20 10:45 Oxycodone/ Acetaminophen (Percocet 5/325) 1 tab PRN Q4HRS PRN 07/01/20 12:30 Pantoprazole Sodium (Protonix) 40 mg BIDAC 07/01/20 16:30 07/06/20 08:35 40 MG Piperacillin Sod/ Tazobactam Sod (Zosyn Per Pharmacy) 1 each PRN DAILY PRN 06/30/20 09:15 07/04/20 11:18 DC Piperacillin Sod/ Tazobactam Sod 2.25 gm/Sodium Chloride 50 ml @ 100 mls/hr Q6HRS 06/30/20 12:00 07/04/20 11:16 DC 07/04/20 06:14 100 MLS/HR Piperacillin Sod/ Tazobactam Sod 3.375 gm/Sodium Chloride 50 ml @ 100 mls/hr 1X ONCE 06/30/20 06:30 06/30/20 06:59 DC 06/30/20 07:54 100 MLS/HR Potassium Chloride/Water 100 ml @ 100 mls/hr Q1H 07/03/20 11:00 07/03/20 12:59 DC 07/03/20 13:37 100 MLS/HR Prochlorperazine (Compazine) 25 mg PRN Q12HR PRN 06/30/20 10:45 Senna/Docusate Sodium (Senna Plus) 2 tab PRN BID PRN 07/01/20 12:30 Sodium Bicarbonate (Sodium Bicarbonate) 1,300 mg TID 07/01/20 14:00 07/01/20 18:09 DC Sodium Bicarbonate (Sodium Bicarb Adult 8.4% Syr) 100 meq 1X ONCE 07/01/20 08:45 07/01/20 08:49 DC 07/01/20 08:58 100 MEQ Sodium Chloride 1,000 ml @ 400 mls/hr Q2H30M PRN 07/01/20 11:30 07/01/20 23:29 DC Sodium Chloride (Normal Saline Flush) 3 ml QSHIFT PRN 06/30/20 10:45 Sodium Phosphate 20 mmol/Sodium Chloride 256.6667 ml @ 64.167 m... 1X ONCE 07/02/20 13:00 07/02/20 16:59 DC 07/02/20 13:26 64.167 MLS/HR Vancomycin HCl 1 gm/Sodium Chloride 250 ml @ 250 mls/hr 1X ONCE 06/30/20 06:45 06/30/20 07:44 DC 06/30/20 08:37 250 MLS/HR Lab Laboratory Tests Test 07/05/20 12:30 07/06/20 06:00 White Blood Count 5.7 x10^3/uL (4.0-11.0) Red Blood Count 2.61 x10^6/uL (3.50-5.40) Hemoglobin 8.2 g/dL (12.0-15.5) Hematocrit 25.8 % (36.0-47.0) Mean Corpuscular Volume 99 fL (79-100) Mean Corpuscular Hemoglobin 31 pg (25-35) Mean Corpuscular Hemoglobin Concent 32 g/dL (31-37) Red Cell Distribution Width 15.2 % (11.5-14.5) Platelet Count 164 x10^3/uL (140-400) Neutrophils (%) (Auto) 66 % (31-73) Lymphocytes (%) (Auto) 22 % (24-48) Monocytes (%) (Auto) 8 % (0-9) Eosinophils (%) (Auto) 3 % (0-3) Basophils (%) (Auto) 1 % (0-3) Neutrophils # (Auto) 3.8 x10^3/uL (1.8-7.7) Lymphocytes # (Auto) 1.2 x10^3/uL (1.0-4.8) Monocytes # (Auto) 0.5 x10^3/uL (0.0-1.1) Eosinophils # (Auto) 0.2 x10^3/uL (0.0-0.7) Basophils # (Auto) 0.0 x10^3/uL (0.0-0.2) Sodium Level 145 mmol/L (136-145) 145 mmol/L (136-145) Potassium Level 3.4 mmol/L (3.5-5.1) 3.6 mmol/L (3.5-5.1) Chloride Level 117 mmol/L (98-107) 116 mmol/L (98-107) Carbon Dioxide Level 16 mmol/L (21-32) 16 mmol/L (21-32) Anion Gap 12 (6-14) 13 (6-14) Blood Urea Nitrogen 14 mg/dL (7-20) 14 mg/dL (7-20) Creatinine 1.2 mg/dL (0.6-1.0) 1.4 mg/dL (0.6-1.0) Estimated GFR (Cockcroft-Gault) 43.9 36.8 BUN/Creatinine Ratio 12 (6-20) Glucose Level 67 mg/dL (70-99) 72 mg/dL (70-99) Calcium Level 7.0 mg/dL (8.5-10.1) 7.7 mg/dL (8.5-10.1) Total Bilirubin 0.1 mg/dL (0.2-1.0) Aspartate Amino Transf (AST/SGOT) 12 U/L (15-37) Alanine Aminotransferase (ALT/SGPT) 17 U/L (14-59) Alkaline Phosphatase 65 U/L (46-116) Total Protein 4.6 g/dL (6.4-8.2) Albumin 1.1 g/dL (3.4-5.0) Albumin/Globulin Ratio 0.3 (1.0-1.7) Results All relevant outside records, renal labs, imaging studies, telemetry/EKG's were reviewed. Justicifation of Admission Dx: Justifications for Admission: Justification of Admission Dx: Yes ELEANOR MAHAN MD Jul 06, 2020 09:11
[2020-07-06] MEDS: DRONABINOL 2.5 MG CAPSULE. PO SCH ×2 (11:30→16:30)
[2020-07-06] MEDS ORDERED: GABA-689 PO (12:44)
[2020-07-06] MEDS ORDERED: METO25TA4 PO (12:44)
[2020-07-06] MEDS ORDERED: ASPI-886 PO (12:44)
--- NOTE | 2020-07-06 12:45 | PDOC ---
VITA VASQUEZ BOTTLE HOP 07/06/20 1245: CARDIO Progress Notes Date and Time Date of Service 07/06/2020 Time of Evaluation 1130 Subjective Subjective: No Chest Pain, No shortness of breath, No Palpitations Vitals Vitals Vital Signs Date Time Temp Pulse Resp B/P (MAP) Pulse Ox O2 Delivery O2 Flow Rate FiO2 07/06/20 11:00 98.4 64 18 98/54 (69) 94 Room Air 98.4 Weight Weight [ ] Input and Output Intake and Output Intake and Output 07/06/20 07:00 Intake Total 480 ml Output Total 652 ml Balance -172 ml Intake Oral 480 ml Output Urine Total 450 ml Stool Total 202 ml Laboratory Labs Laboratory Tests Test 07/06/20 06:00 Sodium Level 145 mmol/L (136-145) Potassium Level 3.6 mmol/L (3.5-5.1) Chloride Level 116 mmol/L (98-107) Carbon Dioxide Level 16 mmol/L (21-32) Anion Gap 13 (6-14) Blood Urea Nitrogen 14 mg/dL (7-20) Creatinine 1.4 mg/dL (0.6-1.0) Estimated GFR (Cockcroft-Gault) 36.8 Glucose Level 72 mg/dL (70-99) Calcium Level 7.7 mg/dL (8.5-10.1) Microbiology Micro Microbiology 06/30/20 Blood Culture - Final, Complete NO GROWTH AFTER 5 DAYS 06/30/20 Urine Culture - Final, Complete 06/30/20 Antimicrobic Susceptibility - Final, Complete Review of Systems Constitutional: yes: weakness, alert, oriented Ears/Nose/Throat: Yes: no symptom reported Eyes: Yes: no symptom reported Pulmonary: Yes no symptom reported Cardiovascular: Yes no symptom reported Gastrointestional: Yes: no symptom reported Genitourinary: Yes: no symptom reported Musculoskeletal: Yes: muscle stiffness Skin: Yes no symptom reported Psychiatric/Neurological: Yes: no symptom reported Endocrine: Yes: no symptom reported Physical Exam HEENT: Neck Supple W Full Motion Chest: Symmetric LUNGS: Other (diminished bases) Heart: RRR (SR) Abdomen: Soft N/T Extremities: Other (1-2+ bilateral LE pitting edema) Neurology: alert, oriented, follow commands Assessment Assessment 1. Sepsis/shock with HCAP and UTI. Covid negative. Better 2. NIC on CKD: better. received temporary HD, nephrology following 3. Weakness/deconditioning/debility 4. Acute diastolic CHF: induced by sepsis and severe NIC. Compensated 5. PAFIB with RVR: new finding. Maintaining SR. EF and WM nml 6. Mild troponin elevation: type 2 peaked at 0.05 with above culprits 7. Hypothyroidism: TSH on goal 8. 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 Normocytic anemia 10. Moderate to severe LVH 11. Orthostasis Recommendations 1. Antibiotics per ID 2. Fluid off loading per HD 3. DC coreg. and change to metoprolol. Push fluids. Monitor BP trend 4. ECASA 81 mg for stroke prevention. MCOT and will note AFIB burden and guide therapy. Possibly poor candidate for nursing home NOAC given her chronic anemia and high risks for falls and injury 5. Anticipate SNU 6. Consider outpt ischemic w/u as outpt 7. Follow up in office. Justicifation of Admission Dx: Justifications for Admission: Justification of Admission Dx: Yes MARY FULLER MD 07/06/20 2014: CARDIO Progress Notes Assessment Assessment Patient seen and examined. Agree with DIESEL MECHANIC HELPER's assessment and plan. Acute on chr diastolic HF better compensated PAF, maintaining SR Slight trop elevation prob demand ischemia Continue fluid removal with HD per nephrology team Plan outpatient event monitor and ischemic workup VITA VASQUEZ APRN Jul 06, 2020 12:45 MARY FULLER MD Jul 06, 2020 20:14
--- NOTE | 2020-07-06 12:47 | SNU/HH DC ---
DISCHARGE ORDERS DISCHARGE INFORMATION: DISCHARGE DATE: Jul 06, 2020 FINAL DIAGNOSIS 1. Acute hypoxic respiratory failure 2. sepsis, pneumonia, possible gram negative 3. Septic shock, likely source is pneumonia and a component of volume depletion 4. Acute kidney injury, vasomotor nephropathy 5. Severe protein-calorie malnutrition. 6. No significant tobacco history. 7, schizotypal behvaior, on meds, , depression, 8. klebsiella UTI 8 . Problems Medical Problems: (1) HCAP (healthcare-associated pneumonia) Status: Acute (2) Weakness Status: Acute CONDITION ON DISCHARGE: Stable CODE STATUS: Code Status: Full NURSING HOME: SNF STAY <30 DAYS: Yes POST DISCHARGE ORDERS: ACTIVITY ORDERS: Activity as tolerated WEIGHT BEARING STATUS: As tolerated BATHING ORDERS: Shower-keep dressing dry, No Tub Bath until see DIET AFTER DISCHARGE: Regular WOUND/INCISION CARE: Keep wound/cast CDI CHECKS AFTER DISCHARGE: CHECKS AFTER DISCHARGE: Check blood press - daily, Check your Temp as needed, Weigh Yourself Daily FOLLOW-UP: PHYSICIAN FOLLOW-UP: primary TREATMENT/EQUIPMENT ORDERS: ADAPTIVE EQUIPMENT NEEDED: Front wheeled walker, Raised toilet seat, Wheelchair Physical Therapy For: Evalulation/Treatment Occupational Therapy For: Evaluation/Treatment DISCHARGE MEDICATIONS: Home Meds Active Scripts Cephalexin (CEPHALEXIN) 250 Mg Capsule, 500 MG PO TID for UTI, complicated, #15 CAP Prov:RONY COOK MD 07/06/20 Metoprolol Tartrate (METOPROLOL TARTRATE) 25 Mg Tablet, 25 MG PO BID for htn, #60 TAB Prov:RONY COOK MD 07/06/20 Gabapentin (GABAPENTIN ) 400 Mg Capsule, 1200 MG PO QHS for chronic pain for 30 Days, #90 CAP Prov:RONY COOK MD 07/06/20 Aspirin (ASPIRIN EC) 81 Mg Tablet.dr, 81 MG PO DAILYWBKFT for cardiac, #100 TAB.SR Prov:RONY COOK MD 07/06/20 Acetaminophen (TYLENOL) 325 Mg Tablet, 650 MG PO PRN Q4HRS PRN for TEMP OVER 100.4F OR MILD PAIN for 30 Days, #120 TAB Prov:EFREN LAL MD 09/17/18 Furosemide (FUROSEMIDE) 40 Mg Tablet, 40 MG PO DAILY for BP for 30 Days, #30 TAB Prov:EFREN LAL MD 09/17/18 Sennosides/Docusate Sodium (SENNA-TIME S TABLET) 1 Each Tablet, 2 TAB PO PRN BID PRN for CONSTIPATION for 30 Days, #60 TAB Prov:EFREN LAL MD 09/17/18 Reported Medications Selenium (SELENIUM) 200 Mcg Capsule, 0.5 CAP PO DAILY for . for 30 Days, #15 CAP 0 Refills 07/01/20 Lipase/Protease/Amylase (LAUREENON 36,000 UNITS CAPSULE) 1 Each Capsule., 1 EACH PO TIDAC for malabsorption , CAP 07/01/20 Ondansetron Hcl (ZOFRAN) 4 Mg Tablet, 1 TAB PO Q8HRS for nausea/vomiting, #30 TAB 07/01/20 Mirtazapine (MIRTAZAPINE) 30 Mg Tablet, 1 TAB PO QHS for Antidepressant, #30 TAB 1 Refill 07/01/20 Levothyroxine Sodium (Levothyroxine) 100 Mcg Capsule, 100 MCG PO DAILY for hypothyroid, CAP 07/01/20 Ferrous Sulfate (FERROUS SULFATE) 325 Mg Tablet, 1 TAB PO DAILY for supplement, #30 TAB 3 Refills 07/01/20 Ergocalciferol (Vitamin D2) (Vitamin D2) 1,250 Mcg Capsule, 1250 MCG PO DAILY for supplement, CAP 07/01/20 Clonazepam (CLONAZEPAM) 1 Mg Tablet, 1 MG PO BID for FOR ANXIETY, TAB 07/01/20 Bupropion Hcl (WELLBUTRIN XL) 300 Mg Tab.er.24h, 1 TAB PO DAILY for Depression, #90 TAB 3 Refills 07/01/20 Aripiprazole (ABILIFY) 30 Mg Tablet, 1 TAB PO DAILY for Anxiety for 30 Days, #30 TAB 0 Refills 07/01/20 Calcium Carbonate/Vitamin D3 (CALCIUM + VITAMIN D TABLET) 1 Each Tablet, 2 EACH PO DAILY for vit dif, TAB 09/14/18 Multivitamin (MULTIVITAMINS) 1 Each Tablet, 1 TAB PO DAILY for vit dif., #90 TAB 3 Refills 09/14/18 Sodium Bicarbonate (SODIUM BICARBONATE) 650 Mg Tablet, 2 TAB PO TID for kidney, #60 TAB 5 Refills 09/14/18 Omeprazole (OMEPRAZOLE) 40 Mg Capsule., 40 MG PO BID 10/13/13 Citalopram Hydrobromide (CITALOPRAM HBR) 40 Mg Tablet, 20 MG PO DAILY for depression 10/13/13 Discontinued Reported Medications Carvedilol (CARVEDILOL ) 6.25 Mg Tablet, 6.25 MG PO BIDWMEALS for CARDIAC, TAB 07/01/20 Gabapentin (GABAPENTIN) 600 Mg Tablet, 1200 MG PO BID 10/13/13 Levothyroxine Sodium (LEVOTHYROXINE SODIUM) 100 Mcg Tablet, 100 MCG PO DAILYAC for THYROID SUPPLEMENT, #30 TAB 0 Refills 05/02/15 Aripiprazole (ABILIFY) 10 Mg Tablet, 2 TAB PO HS for depression, #30 TAB 1 Refill 05/01/15 Bupropion Hcl (WELLBUTRIN SR) 150 Mg Tablet.er, 150 MG PO DAILY, TAB.SR 05/01/15 Mirtazapine (MIRTAZAPINE) 30 Mg Tablet, 30 MG PO HS 10/13/13 Discontinued Scripts Oxycodone/Apap 5-325 (PERCOCET 5-325 MG TABLET ) 1 Each Tablet, 1 TAB PO PRN Q4HRS PRN for SEVERE PAIN for 6 Days, #18 TAB Prov:EFREN LAL MD 09/17/18 Enoxaparin Sodium (ENOXAPARIN SODIUM) 30 Mg/0.3 Ml Disp.syrin, 30 MG SQ Q24H for PPX for 14 Days, #14 DIS.SYR Prov:EFREN LAL MD 09/17/18 Lorazepam (ATIVAN) 0.5 Mg Tablet, 0.5 MG PO PRN Q4HRS PRN for ANXIETY / AGITATION for 15 Days, #30 TAB Prov:EFREN LAL MD 09/17/18 RONY COOK MD Jul 06, 2020 12:47
[2020-07-06] MEDS ORDERED: CEPH250C PO (12:53)
--- NOTE | 2020-07-06 13:06 | PDOC3 ---
Discharge Summary Visit Information Date of Admission: Jun 30, 2020 Date of Discharge: Jul 06, 2020 Final Diagnosis 1. Acute hypoxic respiratory failure 2. sepsis, pneumonia, possible gram negative 3. Septic shock, likely source is pneumonia and a component of volume depletion 4. Acute kidney injury, vasomotor nephropathy on CKD 4, got HD once here, 07/01 5. Severe protein-calorie malnutrition. 6. No significant tobacco history. 7, schizotypal behvaior, on meds, , depression, 8. klebsiella UTI 8 . Problems Medical Problems: (1) HCAP (healthcare-associated pneumonia) Status: Acute (2) Weakness Status: Acute Brief Hospital Course Allergies Allergies Coded Allergies Type Severity Reaction Last Updated Verified hydromorphone Allergy Intermediate Palpitations 10/14/13 Yes rosuvastatin Allergy Mild Nausea and Vomiting 10/14/13 Yes Vital Signs Vital Signs Date Time Temp Pulse Resp B/P (MAP) Pulse Ox O2 Delivery O2 Flow Rate FiO2 07/06/20 11:00 98.4 64 18 98/54 (69) 94 Room Air 98.4 Lab Results Laboratory Tests Test 07/05/20 12:30 07/06/20 06:00 White Blood Count 5.7 x10^3/uL (4.0-11.0) Red Blood Count 2.61 x10^6/uL (3.50-5.40) Hemoglobin 8.2 g/dL (12.0-15.5) Hematocrit 25.8 % (36.0-47.0) Mean Corpuscular Volume 99 fL (79-100) Mean Corpuscular Hemoglobin 31 pg (25-35) Mean Corpuscular Hemoglobin Concent 32 g/dL (31-37) Red Cell Distribution Width 15.2 % (11.5-14.5) Platelet Count 164 x10^3/uL (140-400) Neutrophils (%) (Auto) 66 % (31-73) Lymphocytes (%) (Auto) 22 % (24-48) Monocytes (%) (Auto) 8 % (0-9) Eosinophils (%) (Auto) 3 % (0-3) Basophils (%) (Auto) 1 % (0-3) Neutrophils # (Auto) 3.8 x10^3/uL (1.8-7.7) Lymphocytes # (Auto) 1.2 x10^3/uL (1.0-4.8) Monocytes # (Auto) 0.5 x10^3/uL (0.0-1.1) Eosinophils # (Auto) 0.2 x10^3/uL (0.0-0.7) Basophils # (Auto) 0.0 x10^3/uL (0.0-0.2) Sodium Level 145 mmol/L (136-145) 145 mmol/L (136-145) Potassium Level 3.4 mmol/L (3.5-5.1) 3.6 mmol/L (3.5-5.1) Chloride Level 117 mmol/L (98-107) 116 mmol/L (98-107) Carbon Dioxide Level 16 mmol/L (21-32) 16 mmol/L (21-32) Anion Gap 12 (6-14) 13 (6-14) Blood Urea Nitrogen 14 mg/dL (7-20) 14 mg/dL (7-20) Creatinine 1.2 mg/dL (0.6-1.0) 1.4 mg/dL (0.6-1.0) Estimated GFR (Cockcroft-Gault) 43.9 36.8 BUN/Creatinine Ratio 12 (6-20) Glucose Level 67 mg/dL (70-99) 72 mg/dL (70-99) Calcium Level 7.0 mg/dL (8.5-10.1) 7.7 mg/dL (8.5-10.1) Total Bilirubin 0.1 mg/dL (0.2-1.0) Aspartate Amino Transf (AST/SGOT) 12 U/L (15-37) Alanine Aminotransferase (ALT/SGPT) 17 U/L (14-59) Alkaline Phosphatase 65 U/L (46-116) Total Protein 4.6 g/dL (6.4-8.2) Albumin 1.1 g/dL (3.4-5.0) Albumin/Globulin Ratio 0.3 (1.0-1.7) Laboratory Tests Test 07/06/20 06:00 Sodium Level 145 mmol/L (136-145) Potassium Level 3.6 mmol/L (3.5-5.1) Chloride Level 116 mmol/L (98-107) Carbon Dioxide Level 16 mmol/L (21-32) Anion Gap 13 (6-14) Blood Urea Nitrogen 14 mg/dL (7-20) Creatinine 1.4 mg/dL (0.6-1.0) Estimated GFR (Cockcroft-Gault) 36.8 Glucose Level 72 mg/dL (70-99) Calcium Level 7.7 mg/dL (8.5-10.1) Brief Hospital Course Ms. Armenta is a 75 old admitted for complains of increased weakness and nausea. She was recently discharged from rehab and lives . She complained of marked dyspnea and nonproductive cough. Presently not SOA and currently receiving hemodialysis. Significant bowel surgery in the past but no prior hx fo VTE, CVA nor CAD. she was treated for PNA and UTI, was in AFIB , which was new for her with bursts of RVR. revereted to sinus at DC Discharge Information Condition at Discharge: Improved Follow Up: Weeks Disposition/Orders: D/C to Another Facility Scheduled Aripiprazole (Abilify) 30 Mg Tablet, 1 TAB PO DAILY for Anxiety for 30 Days, #30 Ref 0 (Reported) Entered as Reported by: LLUVIA FRITZ on 07/01/20 105 Last Action: Converted on 07/01/201217 by MARYANN DUBOIS Aspirin (Aspirin Ec) 81 Mg Tablet.dr, 81 MG PO DAILYWBKFT for cardiac, #100 Prescribed by: RONY COOK on 07/06/20 1244 Bupropion Hcl (Wellbutrin Xl) 300 Mg Tab.er.24h, 1 TAB PO DAILY for Depression, #90 Ref 3 (Reported) Entered as Reported by: LLUVIA FRITZ on 07/01/20 105 Last Action: Converted on 07/01/201217 by MARYANN DUBOIS Calcium Carbonate/Vitamin D3 (Calcium + Vitamin D Tablet) 1 Each Tablet, 2 EACH PO DAILY for vit dif, (Reported) Entered as Reported by: Lluvia Blackwell on 09/14/182007 Last Action: Converted on 07/01/201217 by MARYANN DUBOIS Cephalexin (Cephalexin) 250 Mg Capsule, 500 MG PO TID for UTI, complicated, #15 Prescribed by: RONY COOK on 07/06/20 1253 Citalopram Hydrobromide (Citalopram Hbr) 40 Mg Tablet, 20 MG PO DAILY for depression, (Reported) Entered as Reported by: NANY WILSON on 4/1938 Last Action: Converted on 07/01/201217 by MARYANN DUBOIS Clonazepam (Clonazepam) 1 Mg Tablet, 1 MG PO BID for FOR ANXIETY, (Reported) Entered as Reported by: LLVUIA FRITZ on 07/01/201057 Last Action: Converted on 07/01/201217 by NIAJyothi DUBOIS Ergocalciferol (Vitamin D2) (Vitamin D2) 1,250 Mcg Capsule, 1,250 MCG PO DAILY for supplement, (Reported) Entered as Reported by: LLUVIA FRITZ on 07/01/201057 Last Action: New Order on 07/01/201057 by LLUVIA FRITZ Ferrous Sulfate (Ferrous Sulfate) 325 Mg Tablet, 1 TAB PO DAILY for supplement, #30 Ref 3 (Reported) Entered as Reported by: LLUVIA FRITZ on 07/01/201057 Last Action: Continued on 07/01/201217 by MARYANN DUBOIS Furosemide (Furosemide) 40 Mg Tablet, 40 MG PO DAILY for BP for 30 Days, #30 Prescribed by: EFREN LAL MD on 09/17/18 1226 Last Action: Continued on 07/01/201217 by MARYANN DUBOIS Gabapentin (Gabapentin ) 400 Mg Capsule, 1,200 MG PO QHS for chronic pain for 30 Days, #90 Prescribed by: RONY COOK on 07/06/20 1244 Levothyroxine Sodium (Levothyroxine) 100 Mcg Capsule, 100 MCG PO DAILY for hypothyroid, (Reported) Entered as Reported by: LLUVIA FRITZ on 07/01/201057 Last Action: Converted on 07/01/201217 by MARYANN DUBOIS Lipase/Protease/Amylase (Marcia Stewart 36,000 Units Capsule) 1 Each Capsule.dr, 1 EACH PO TIDAC for malabsorption , (Reported) Entered as Reported by: LLUVIA FRITZ on 07/01/201057 Last Action: Converted on 07/01/201217 by MARYANN DUBOIS Metoprolol Tartrate (Metoprolol Tartrate) 25 Mg Tablet, 25 MG PO BID for htn, #60 Prescribed by: RONY COOK on 07/06/20 1244 Mirtazapine (Mirtazapine) 30 Mg Tablet, 1 TAB PO QHS for Antidepressant, #30 Ref 1 (Reported) Entered as Reported by: LLUVIA FRITZ on 07/01/201057 Last Action: Converted on 07/01/201217 by NIAL CASTLE Multivitamin (Multivitamins) 1 Each Tablet, 1 TAB PO DAILY for vit dif., #90 Ref 3 (Reported) Entered as Reported by: Lluvia Blackwell on 09/14/182007 Last Action: Converted on 07/01/201217 by NIAL CASTLE Omeprazole (Omeprazole) 40 Mg Capsule.dr, 40 MG PO BID, (Reported) Entered as Reported by: NANY WILSON on 10/13/132006 Last Action: Converted on 07/01/201217 by NIAL CASTEMERSON Ondansetron Hcl (Zofran) 4 Mg Tablet, 1 TAB PO Q8HRS for nausea/vomiting, #30 (Reported) Entered as Reported by: LLUVIA FRITZ on 07/01/201057 Last Action: Converted on 07/01/201217 by NIAL CASTLE Selenium (Selenium) 200 Mcg Capsule, 0.5 CAP PO DAILY for . for 30 Days, #15 Ref 0 (Reported) Entered as Reported by: LLUVIA FRITZ on 07/01/201057 Last Action: Converted on 07/01/201217 by NIAL CASTEMERSON Sodium Bicarbonate (Sodium Bicarbonate) 650 Mg Tablet, 2 TAB PO TID for kidney, #60 Ref 5 (Reported) Entered as Reported by: Lluvia Blackwell on 09/14/182007 Last Action: Continued on 07/01/201217 by NIAL SILVINO Scheduled PRN Acetaminophen (Tylenol) 325 Mg Tablet, 650 MG PO PRN Q4HRS PRN for TEMP OVER 100.4F OR MILD PAIN for 30 Days, #120 Prescribed by: EFREN LAL MD on 09/17/181225 Last Action: Continued on 07/01/201217 by NIAL CASTEMERSON Sennosides/Docusate Sodium (Senna-Time S Tablet) 1 Each Tablet, 2 TAB PO PRN BID PRN for CONSTIPATION for 30 Days, #60 Prescribed by: EFREN LAL MD on 09/17/181225 Last Action: Continued on 07/01/201217 by NIAJyothi DUBOIS Discontinued Medications Aripiprazole (Abilify) 10 Mg Tablet, 2 TAB PO HS for depression, #30 Ref 1 (Reported) Entered as Reported by: LLUVIA PAZ on 05/01/15557 Last Action: Discontinued on 07/01/201057 by LLUVIA FRITZ Bupropion Hcl (Wellbutrin Sr) 150 Mg Tablet.er, 150 MG PO DAILY, (Reported) Entered as Reported by: LLUVIA PAZ on 05/01/15557 Last Action: Discontinued on 07/01/201057 by LLUVIA FRITZ Carvedilol (Carvedilol ) 6.25 Mg Tablet, 6.25 MG PO BIDWMEALS for CARDIAC, (Reported) Entered as Reported by: LLUVIA FRITZ on 07/01/20 105 Last Action: Continued on 07/01/201217 by MARYANN DUBOIS Enoxaparin Sodium (Enoxaparin Sodium) 30 Mg/0.3 Ml Disp.syrin, 30 MG SQ Q24H for PPX for 14 Days, #14 Prescribed by: EFREN LAL MD on 09/17/181225 Last Action: Reviewed on 06/30/20 1443 by MICHELLE HERNANDEZ Gabapentin (Gabapentin) 600 Mg Tablet, 1,200 MG PO BID, (Reported) Entered as Reported by: NANY WILSON on 10/13/131958 Last Action: Converted on 07/01/201217 by MARYANN DUBOIS Levothyroxine Sodium (Levothyroxine Sodium) 100 Mcg Tablet, 100 MCG PO DAILYAC for THYROID SUPPLEMENT, #30 Ref 0 (Reported) Entered as Reported by: BECKIE CANDELARIA RPH on 05/02/15 1133 Last Action: Discontinued on 07/01/201057 by LLUVIA FRITZ Lorazepam (Ativan) 0.5 Mg Tablet, 0.5 MG PO PRN Q4HRS PRN for ANXIETY / AGITATION for 15 Days, #30 Discontinued Reason: DC Prescribed by: EFREN LAL MD on 09/17/186 Last Action: Discontinued on 07/04/20 0817 by Eliane Mullins RPH Mirtazapine (Mirtazapine) 30 Mg Tablet, 30 MG PO HS, (Reported) Entered as Reported by: NANY WILSON on 10/13/131947 Last Action: Discontinued on 07/01/201057 by LLUVIA FRITZ Oxycodone/Apap 5-325 (Percocet 5-325 Mg Tablet ) 1 Each Tablet, 1 TAB PO PRN Q4HRS PRN for SEVERE PAIN for 6 Days, #18 Prescribed by: EFREN LAL MD on 09/17/18 1226 Last Action: Continued on 07/01/20 1218 by MARYANN DUBOIS Patient Instructions Patient Instructions to jorden bustos skilled pt seen on DC, exam stable TIME 34 min Justicifation of Admission Dx: Justifications for Admission: Justification of Admission Dx: Yes RONY COOK MD Jul 06, 2020 13:06
[2020-07-06] MEDS ORDERED: CEPHALEXIN 250 MG CAPSULE. PO SCH (14:00)
--- NOTE | 2020-07-06 17:38 | NUR ---
Discharged patient to [facility]. left PICC line and heart monitor removed. Patient off per transporters per stretcher.
[2020-07-06] MEDS ORDERED: METOPROLOL TART IMMED RELEASE 25 MG TABLET. PO SCH (21:00)
== END 2020-07-06 17:20 | DRG 871 ==
LOC: ER 03:28 → 6 SOUTH 07:22 → 1 WEST ICU 10:12 → ED HOLD 10:13 → 1 WEST ICU 13:17 → 2 NORTH 07-04 15:41
PROVIDERS: ADMIT Internal Medicine; ATTEND Internal Medicine
PROC: 02HV33Z Insertion of Infusion Device into Superior Vena Cava, Percutaneous Approach (ICD-10-PCS; principal; 2020-06-30)
PROC: 02H633Z Insertion of Infusion Device into Right Atrium, Percutaneous Approach (ICD-10-PCS; 2020-07-01)
PROC: B548ZZA Ultrasonography of Superior Vena Cava, Guidance (ICD-10-PCS; 2020-07-01)
PROC: 5A1D70Z Performance of Urinary Filtration, Intermittent, Less than 6 Hours Per Day (ICD-10-PCS; 2020-07-01)
DX: A41.9 Sepsis, unspecified organism (principal); I50.33 Acute on chronic diastolic (congestive) heart failure; N17.0 Acute kidney failure with tubular necrosis; E43 Unspecified severe protein-calorie malnutrition; J15.6 Pneumonia due to other Gram-negative bacteria; I13.0 Hypertensive heart and chronic kidney disease with heart failure and stage 1 through stage 4 chronic kidney disease, or unspecified chronic kidney disease; I48.92 Unspecified atrial flutter; N18.4 Chronic kidney disease, stage 4 (severe); N39.0 Urinary tract infection, site not specified; B96.1 Klebsiella pneumoniae [K. pneumoniae] as the cause of diseases classified elsewhere; D64.9 Anemia, unspecified; E03.9 Hypothyroidism, unspecified; E83.42 Hypomagnesemia; E86.1 Hypovolemia; F32.9 Major depressive disorder, single episode, unspecified; F41.9 Anxiety disorder, unspecified; K21.9 Gastro-esophageal reflux disease without esophagitis; M19.90 Unspecified osteoarthritis, unspecified site; R53.81 Other malaise; I48.0 Paroxysmal atrial fibrillation; I08.3 Combined rheumatic disorders of mitral, aortic and tricuspid valves; Y95 Nosocomial condition; Z20.822 Contact with and (suspected) exposure to COVID-19; Z82.49 Family history of ischemic heart disease and other diseases of the circulatory system; Z90.49 Acquired absence of other specified parts of digestive tract; Z90.710 Acquired absence of both cervix and uterus; Z98.84 Bariatric surgery status; Z88.8 Allergy status to other drugs, medicaments and biological substances; Z68.21 Body mass index [BMI] 21.0-21.9, adult; Z99.2 Dependence on renal dialysis
CPT/HCPCS: 36415; 36556; 36569; 36600; 71045; 76937; 80048; 80053; 81001; 82550; 82805; 83605; 83615; 83735; 83880; 84100; 84145; 84443; 84484; 85007; 85025; 85379; 85384; 85610; 85730; 86317; 87040; 87077; 87086; 87186; 87340; 93005; 93306; 96365; 96366; 96367; 96374; 96375; A4215; C1892; J0696; J1160; J1644; J2405; J2543; J3370; J3475; J3480; J3490; J7030; J7040; J7050; J7060; P9612; U0003; 92526-GN; 92610-GN; 97110-GP; 97530-GO; 97530-GP; 97535-GO; 99285-25; G0378; Q0167

== ENCOUNTER 2020-07-14 17:04 | Inpatient (IN) | payer MEDICARE, OTHER ==
[~2020-07-14] VITALS: Ht 162.6 cm; Wt 57.6 kg
[~2020-07-14 17:04] MED LIST changes: +ARIP30TA4 PO; +ASPI-886 PO; +BUPR300T3 PO; +CARV6.2511 PO; +CEPH250C PO; +ERGO500089 PO; +GABA-689 PO; +LEVO100C3 PO; +LIPA1CAP8 PO; +METO25TA4 PO; +ONDA4TAB7 PO; +SELE200C PO
--- NOTE | 2020-07-14 17:57 | PHYS DOC ---
Past Medical History Past Medical History: Anxiety, Depression, GERD, Hypertension, Hypothyroid, Renal Disease Additional Past Medical Histor: bowel obstruction, CKD, DYSPHAGIA (TAHMINA ALEXANDER APRN) Past Surgical History: Cholecystectomy, Colectomy, Gastric Bypass, Hysterectomy, Tonsillectomy Additional Past Surgical Histo: COLON PERF REPAIN. ADHEASION REPAIR, (TAHMINA ALEXANDER APRN) Smoking Status: Never Smoker Alcohol Use: Rarely Drug Use: None (TAHMINA ALEXANDER APRN) General Adult EDM: Chief Complaint: ALTERED MENTAL STATUS HPI: HPI: Patient is a 75 year old female with a history of hypertension, depression, anxiety, kidney disease, who presents the ED today [facility] to be evaluated for sepsis and altered mental status. Per EMS report which was obtained from the [facility] staff patient was discharged from this facility on July 05, 2020 after having pneumonia. She was treated with antibiotics. assisted staff reported to EMS this morning she was altered. She apparently asked the [facility] staff when they can go shopping. They state she has a wound on the right lower extremity that they think could be the source of sepsis and or UTI. (TAHMINA ALEXANDER APRN) Review of Systems: Review of Systems: Constitutional: Denies fever or chills. [] Eyes: Denies change in visual acuity. [] HENT: Denies nasal congestion or sore throat. [] Respiratory: Denies cough or shortness of breath. [] Cardiovascular: Denies chest pain or edema. [] GI: Denies abdominal pain, nausea, vomiting, bloody stools or diarrhea. [] : assisted staff reports possible UTI. Denies dysuria. [] Musculoskeletal: Denies back pain or joint pain. [] Integument: Reports wound to the right lower extremity. Neurologic: Denies headache, focal weakness or sensory changes. [] Psychiatric: Denies depression or anxiety. [] (TAHMINA ALEXANDER APRN) Heart Score: Risk Factors: Risk Factors: DM, Current or recent (<one month) smoker, HTN, HLP, family history of CAD, obesity. Risk Scores: Score 0 - 3: 2.5% MACE over next 6 weeks - Discharge Home Score 4 - 6: 20.3% MACE over next 6 weeks - Admit for Clinical Observation Score 7 - 10: 72.7% MACE over next 6 weeks - Early Invasive Strategies (TAHMINA ALEXANDER APRN) Allergies: Allergies: Allergies Coded Allergies Type Severity Reaction Last Updated Verified hydromorphone Allergy Intermediate Palpitations 10/14/13 Yes rosuvastatin Allergy Mild Nausea and Vomiting 10/14/13 Yes (TAHMINA ALEXANDER APRN) Physical Exam: PE: Constitutional: Well developed, well nourished, no acute distress, non-toxic appearance. [] HENT: Normocephalic, atraumatic, bilateral external ears normal, oropharynx moist, no oral exudates, nose normal. [] Eyes: PERRLA, EOMI, conjunctiva normal, no discharge. [] Neck: Normal range of motion, no tenderness, supple, no stridor. [] Cardiovascular:Heart rate regular rhythm, no murmur [] Lungs & Thorax: Bilateral breath sounds clear to auscultation [] Abdomen: Bowel sounds normal, soft, no tenderness, no masses, no pulsatile masses. [] Skin: Warm, dry, no erythema, no rash. [] Back: No tenderness, no CVA tenderness. [] Extremities: No tenderness, no cyanosis, no clubbing, ROM intact, +1 edema noted to bilateral upper extremity. Right lateral brown with wound approx. 1X05 cm wound has no signs of infection. +2 bilateral pedal pulses. Neurologic: Alert and oriented X 3, normal motor function, normal sensory function, no focal deficits noted. Cranial nerves II through XII intact. Psychologic: Affect normal, judgement normal, mood normal. [] (TAHMINA ALEXANDER APRN) EKG: EKG: [] (TAHMINA ALEXANDER APRN) Radiology/Procedures: Radiology/Procedures: [] (TAHMINA ALEXANDER APRN) Course & Med Decision Making: Course & Med Decision Making Pertinent Labs and Imaging studies reviewed. (See chart for details) This is a 75-year-old female patient presenting to the ED today from a [facility] to be evaluated for altered mental status and possible sepsis. See HPI. Patient is alert oriented x3 no distress. [address] Li (TAHMINA ALEXANDER APRN) Course & Med Decision Making I assumed care of this patient at 1900. Briefly this is a 75-year-old female presenting to the [facility] today altered mental status with concern for sepsis. Initial work-up did demonstrate an elevated white blood cell count and lactic 2.6 but no clear evidence of source of infection. Patient the patient's vital signs alone she does qualify for potentially being severe sepsis. Further evaluation with a chest x-ray and labs were obtained. Patient did have a elevated BNP are this was compared to the prior stay and does not appear to be deviated from baseline. Chest x-ray did demonstrate interstitial infiltrates which raises concern for either bacterial or viral pneumonia. Patient was started on broad-spectrum empiric antibiotics at this time we will plan to admit the patient. At this time continue with cautious fluid resuscitation as the patient does have evidence of possible volume overload and congestive heart failure (ANA LI MD) Dragon Disclaimer: Dragon Disclaimer: This electronic medical record was generated, in whole or in part, using a voice recognition dictation system. (TAHMINA ALEXANDER APRN) Departure Departure Impression: Primary Impression: AMS (altered mental status) Additional Impression: Leukocytosis Disposition: ADMITTED INPT THIS HOSP Condition: STABLE Referrals: MICHELLE LILLY (PCP) TAHMINA ALEXANDER APRN Jul 14, 2020 17:57 ANA LI MD Jul 14, 2020 21:04
[2020-07-14 18:11] LABS: BASO % 0 % (0-3); EOS # 0.1 x10^3/uL (0.0-0.7); EOS % 1 % (0-3); HEMATOCRIT 27.1 % (36.0-47.0); HEMOGLOBIN 8.5 g/dL (12.0-15.5); LYMPH # 1.8 x10^3/uL (1.0-4.8); LYMPH % 10 % (24-48); MEAN CORPUSCULAR HEMOGLOBIN 31 pg (25-35); MEAN CORPUSCULAR HGB CONC 32 g/dL (31-37); MEAN CORPUSCULAR VOLUME 97 fL (79-100); MONO # 0.9 x10^3/uL (0.0-1.1); MONO % 5 % (0-9); NEUT # 15.4 x10^3/uL (1.8-7.7); NEUT % 84 % (31-73); PLATELET COUNT 313 x10^3/uL (140-400); RED BLOOD COUNT 2.78 x10^6/uL (3.50-5.40); RED CELL DISTRIBUTION WIDTH 15.7 % (11.5-14.5); WHITE BLOOD COUNT 18.2 x10^3/uL (4.0-11.0)
[2020-07-14 18:28] LABS: CALCIUM 8.4 mg/dL (8.5-10.1); CREATININE 1.7 mg/dL (0.6-1.0); GFR 29.4; POTASSIUM 3.4 mmol/L (3.5-5.1)
[2020-07-14 18:30] LABS: BARBITURATES NEG (NEG); BENZODIAZEPINES NEG (NEG); CANNABINOIDS NEG (NEG); COCAINE NEG (NEG); METHADONE NEG (NEG); OPIATES NEG (NEG); PHENCYCLIDINE NEG (NEG)
[2020-07-14 18:33] LABS: BILIRUBIN,URINE NEGATIVE (NEG); CLARITY,URINE TURBID; COLOR,URINE YELLOW; NITRITE,URINE NEGATIVE (NEG); PH,URINE 5.5 (<5.0-8.0); PROTEIN,URINE 30 mg/dL (NEG-TRACE); UROBILINOGEN,URINE 0.2 mg/dL (0.2 mg/dL)
[2020-07-14 18:34] LABS: ALBUMIN 1.5 g/dL (3.4-5.0); ALBUMIN/GLOBULIN RATIO 0.3 (1.0-1.7); MAGNESIUM 1.8 mg/dL (1.8-2.4); TOTAL BILIRUBIN 0.2 mg/dL (0.2-1.0); TOTAL PROTEIN 5.9 g/dL (6.4-8.2)
[2020-07-14 18:36] LABS: AMORPHOUS SEDIMENT,UR PRESENT /HPF; AMPHETAMINE/METHAMPHETAMINE NEG (NEG)
[2020-07-14 18:37] LABS: GRANULAR CASTS,URINE OCCASIONAL /HPF; HYALINE CASTS, URINE FEW /HPF; RBC,URINE 0 /HPF (0-2); WBC,URINE TNTC /HPF (0-4); YEAST,URINE PRESENT /HPF
[2020-07-14 18:38] LABS: BACTERIA,URINE MODERATE /HPF (0-FEW)
[2020-07-14 19:06] LABS: INFLUENZA A PATIENT NEGATIVE (NEGATIVE); INFLUENZA B PATIENT NEGATIVE (NEGATIVE)
[2020-07-14 19:10] LABS: % BANDS 4 % (0-9); % BASOS 1 % (0-3); % LYMPHS 12 % (24-48); % MONOS 4 % (0-10); % SEGS 79 % (35-66); PLT ESTIMATE ADEQUATE (ADEQUATE)
[2020-07-14 19:11] LABS: ANISOCYTOSIS SLIGHT; POIKILOCYTOSIS SLIGHT
[2020-07-14 19:12] LABS: OVALOCYTES FEW; POLYCHROMASIA PRESENT; SPHEROCYTES OCC
[2020-07-14 19:13] LABS: HELMET CELLS PRESENT
--- NOTE | 2020-07-14 19:25 | RAD ---
Chest AP portable at 1823: Reason for examination: Altered mental status. Comparison is made to previous chest exam dated 07/02/2020. Heart and mediastinum are unchanged. Lung isabel continue show some mild infiltrates in the left dequan hilar and lower lobe distribution with some mild interval improvement. There is also increase in the interstitial markings bilaterally throughout both lung isabel which appears to be more prominent than on previous exam. No pleural effusion is seen. No acute bony abnormalities are present. Postop daniel es seen at the right axilla. IMPRESSION: Continued presence of infiltrates in the left perihilar and lower lobe distribution with some mild in terval improvement. Diffuse increased interstitial markings bilaterally. This could reflect some interstitial edema or in terstitial infiltrate. CT head without contrast: Comparison is made to previous study dated 07/11/2018. Helical images were obtained through the brain. No contrast was administered. Reconstruction was perf ormed in coronal plane. Exposure: One or more of the following individualized dose reduction techniques were utilized for thi s examination: 1. Automated exposure control 2. Adjustment of the mA and/or kV according to patient size 3. Use of iterative reconstruction technique. Ventricular systems are prominent but symmetric consistent with patient's advanced age and generalize d cerebral atrophy. No midline shift is seen. There is no evidence of intracranial hemorrhage, infarc t, mass or edema. Some basal ganglia calcification is present on the right. No abnormalities of seen at the orbits. The paranasal sinuses show some mild mucosal disease in the left ethmoid air cells. Th ere is a small polypoid lesion posteriorly in the left maxillary antrum measuring 8 mm in size. Remai chani paranasal sinuses and mastoid air cells are clear. No acute abnormality seen in the skull. IMPRESSION: Cerebral atrophy. No acute intracranial abnormality evident. 8 mm polypoid lesion in the left maxillary antrum with some minimal mucosal disease in left ethmoid a ir cells. Electronically signed by: Verito Torres MD (07/14/2020 7:23 PM) PHILIP
[2020-07-14] MEDS ORDERED: PIPERACILLIN/TAZOBACTAM 3.375 GM in IV NORMAL SALINE 50ML 50 ML IV ONE (20:45)
[2020-07-14] MEDS ORDERED: VANCOMYCIN 1GM IVPB FOR OMNI 250 ML IV ONE (20:45)
[2020-07-14] MEDS ORDERED: ONDANSETRON PF 4 MG/2 ML VIAL. IV PRN (21:15)
[2020-07-14] MEDS ORDERED: MORPHINE SULFATE 4 MG/ML VIAL. IV PRN (21:15)
[2020-07-14 23:30] VITALS: BP 110/59
--- NOTE | 2020-07-15 | NUR ---
ADMISSION NOTE: Patient arrived to room 502 via gurney accompanied by ED staff. Patient transferred to bed by staff. Bed low, locked, call light within reach. Patient has no complaints at this time. Patient incontinent, dequan care given at this time.
[2020-07-15 03:00] VITALS: BP 113/59
--- NOTE | 2020-07-15 05:25 | EKG ---
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
[2020-07-15 07:00] VITALS: BP 115/55
--- NOTE | 2020-07-15 08:37 | PDOC1 ---
History and Physical Date of Admission Date of Admission DATE: 07/15/20 TIME: 08:36 Identification/Chief Complaint Chief Complaint presented the ED 07-14 from rehab part of a retirement to be evaluated for sepsis and altered mental status. Per EMS report which was obtained from the retirement staff patient was discharged from this facility on July 05, 2020 after having pneumonia. She was treated with antibiotics. 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 No acute intracranial abnormality evident. CONSULTS ID, PULM, NEPHROLOGY Past Medical History Past Medical History Past Medical History Past Medical History Past Medical History: Anxiety, Depression, GERD, Hypertension, Hypothyroid, Renal Disease Additional Past Medical Histor: bowel obstruction, CKD, DYSPHAGIA Past Surgical History: Cholecystectomy, Colectomy, Gastric Bypass, Hysterectomy, Tonsillectomy Additional Past Surgical Histo: COLON PERF REPAIN. ADHEASION REPAIR, Smoking Status: Never Smoker Alcohol Use: Rarely Drug Use: None FHX HTN Cardiovascular: HTN Pulmonary: No pertinent hx CENTRAL NERVOUS SYSTEM: Other GI: GERD, Other Heme/Onc: Anemia NOS Hepatobiliary: No pertinent hx Psych: Anxiety, Depression Musculoskeletal: Osteoarthritis, Other Rheumatologic: No pertinent hx Infectious disease: No pertinent hx Renal/: Chronic renal insuff Endocrine: Hypothyroidism Past Surgical History Past Surgical History: Cholecystectomy, Colon Resection, Other Family History Family History: No Significant, Hypertension Social History Smoke: No ALCOHOL: none Drugs: None Current Problem List Problem List Problems Medical Problems: (1) AMS (altered mental status) Status: Acute (2) Leukocytosis Status: Acute Current Medications Current Medications Current Medications Piperacillin Sod/ Tazobactam Sod 3.375 gm/Sodium Chloride 50 ml @ 100 mls/hr 1X ONCE IV Last administered on 07/14/20at 21:56; Start 07/14/20 at 20:45; Stop 07/14/20 at 21:14; Status DC Vancomycin HCl 250 ml @ 250 mls/hr 1X ONCE IV Last administered on 07/15/20at 01:52; Start 07/14/20 at 20:45; Stop 07/14/20 at 21:44; Status DC Ondansetron HCl (Zofran) 4 mg PRN Q8HRS PRN IV NAUSEA/VOMITING; Start 07/14/20 at 21:15; Stop 07/15/20 at 21:14 Morphine Sulfate (Morphine Sulfate) 4 mg PRN Q2HR PRN IV PAIN; Start 07/14/20 at 21:15; Stop 07/15/20 at 21:14 Active Scripts Active Cephalexin 250 Mg Capsule 500 Mg PO TID Metoprolol Tartrate 25 Mg Tablet 25 Mg PO BID Gabapentin (Gabapentin) 400 Mg Capsule 1,200 Mg PO QHS 30 Days Aspirin Ec (Aspirin) 81 Mg Tablet. 81 Mg PO DAILYWBKFT Tylenol (Acetaminophen) 325 Mg Tablet 650 Mg PO PRN Q4HRS PRN 30 Days Furosemide 40 Mg Tablet 40 Mg PO DAILY 30 Days Senna-Time S Tablet (Sennosides/Docusate Sodium) 1 Each Tablet 2 Tab PO PRN BID PRN 30 Days Reported Selenium 200 Mcg Capsule 0.5 Cap PO DAILY 30 Days Creon 36,000 Units Capsule (Lipase/Protease/Amylase) 1 Each Capsule.dr 1 Each PO TIDAC Zofran (Ondansetron Hcl) 4 Mg Tablet 1 Tab PO Q8HRS Mirtazapine 30 Mg Tablet 1 Tab PO QHS Levothyroxine (Levothyroxine Sodium) 100 Mcg Capsule 100 Mcg PO DAILY Ferrous Sulfate 325 Mg Tablet 1 Tab PO DAILY Vitamin D2 (Ergocalciferol (Vitamin D2)) 1,250 Mcg Capsule 1,250 Mcg PO DAILY Clonazepam 1 Mg Tablet 1 Mg PO BID Wellbutrin Xl (Bupropion Hcl) 300 Mg Tab.er.24h 1 Tab PO DAILY Abilify (Aripiprazole) 30 Mg Tablet 1 Tab PO DAILY 30 Days Calcium + Vitamin D Tablet (Calcium Carbonate/Vitamin D3) 1 Each Tablet 2 Each PO DAILY Multivitamins (Multivitamin) 1 Each Tablet 1 Tab PO DAILY Sodium Bicarbonate 650 Mg Tablet 2 Tab PO TID Omeprazole 40 Mg Capsule. 40 Mg PO BID Citalopram Hbr (Citalopram Hydrobromide) 40 Mg Tablet 20 Mg PO DAILY Allergies Allergies: Coded Allergies: hydromorphone (Verified Allergy, Intermediate, Palpitations, 10/14/13) rosuvastatin (Verified Allergy, Mild, Nausea and Vomiting, 4/29/14) ROS Review of System Eyes: Denies change in visual acuity. [] HENT: Denies nasal congestion or sore throat. [] Respiratory: Denies cough or shortness of breath. [] Cardiovascular: Denies chest pain or edema. [] GI: Denies abdominal pain, nausea, vomiting, bloody stools or diarrhea. [] : assisted staff reports possible UTI. Denies dysuria. [] Musculoskeletal: Denies back pain or joint pain. [] Integument: Reports wound to the right lower extremity. Neurologic: Denies headache, focal weakness or sensory changes. [ 14 PT ROS OTHERWISE NEG PSYCHOLOGICAL ROS: YES: Disorientation, Memory difficulties Musculoskeletal: Yes Joint Stiffness, Yes Muscular Weakness Neurological: Yes Behavorial Changes Skin: Yes Skin Lesion Changes Physical Exam Physical Exam Constitutional: Well developed, well nourished, no acute distress, non-toxic appearance. [], oriented HENT: Normocephalic, atraumatic, bilateral external ears normal, oropharynx moist, no oral exudates, nose normal. [] Eyes: PERRLA, EOMI, conjunctiva normal, no discharge. [] Neck: Normal range of motion, no tenderness, supple, no stridor. [] Cardiovascular:Heart rate regular rhythm, no murmur [] Lungs & Thorax: Bilateral breath sounds clear to auscultation [] Abdomen: Bowel sounds normal, soft, no tenderness, no masses, no pulsatile masses. [] Skin: Warm, dry, no erythema, no rash. [] Back: No tenderness, no CVA tenderness. [] Extremities: No tenderness, no cyanosis, no clubbing, ROM intact, +1 edema noted to bilateral upper extremity. Right lateral rbown with wound approx. 1X05 cm wound has no signs of infection. +2 bilateral pedal pulses. Neurologic: Alert and oriented X 3, normal motor function, normal sensory function, no focal deficits noted. Cranial nerves II through XII intact. Psychologic: Affect normal, judgment normal, mood normal. poor DP PULSES BILATERALLY [] General: Oriented X3, Cooperative, No acute distress HEENT: EOMI, Mucous membr. moist/pink Lungs: Clear to auscultation Heart: no gallops Breasts: Not examined Abdomen: Normal bowel sounds, Soft, No tenderness Rectal Exam: not examined Extremities: No cyanosis Neuro: Normal speech, Cranial nerves 3-12 NL Psych/Mental Status: Mental status NL, Mood NL Vitals Vitals Vital Signs Date Time Temp Pulse Resp B/P (MAP) Pulse Ox O2 Delivery O2 Flow Rate FiO2 07/15/20 07:00 98.6 75 16 115/55 (75) 97 Room Air 98.6 Labs Labs Laboratory Tests Test 07/14/20 18:00 07/14/20 18:13 07/14/20 18:20 07/14/20 21:50 White Blood Count 18.2 x10^3/uL (4.0-11.0) Red Blood Count 2.78 x10^6/uL (3.50-5.40) Hemoglobin 8.5 g/dL (12.0-15.5) Hematocrit 27.1 % (36.0-47.0) Mean Corpuscular Volume 97 fL (79-100) Mean Corpuscular Hemoglobin 31 pg (25-35) Mean Corpuscular Hemoglobin Concent 32 g/dL (31-37) Red Cell Distribution Width 15.7 % (11.5-14.5) Platelet Count 313 x10^3/uL (140-400) Neutrophils (%) (Auto) 84 % (31-73) Lymphocytes (%) (Auto) 10 % (24-48) Monocytes (%) (Auto) 5 % (0-9) Eosinophils (%) (Auto) 1 % (0-3) Basophils (%) (Auto) 0 % (0-3) Neutrophils # (Auto) 15.4 x10^3/uL (1.8-7.7) Lymphocytes # (Auto) 1.8 x10^3/uL (1.0-4.8) Monocytes # (Auto) 0.9 x10^3/uL (0.0-1.1) Eosinophils # (Auto) 0.1 x10^3/uL (0.0-0.7) Basophils # (Auto) 0.0 x10^3/uL (0.0-0.2) Segmented Neutrophils % 79 % (35-66) Band Neutrophils % 4 % (0-9) Lymphocytes % 12 % (24-48) Monocytes % 4 % (0-10) Basophils % 1 % (0-3) Platelet Estimate Adequate (ADEQUATE) Polychromasia Present Poikilocytosis Slight Anisocytosis Slight Microcytosis Macrocytosis Slight Spherocytes Occ Ovalocytes Few Helmet Cells Present Crenated Cell Present Sodium Level 145 mmol/L (136-145) Potassium Level 3.4 mmol/L (3.5-5.1) Chloride Level 112 mmol/L (98-107) Carbon Dioxide Level 17 mmol/L (21-32) Anion Gap 16 (6-14) Blood Urea Nitrogen 20 mg/dL (7-20) Creatinine 1.7 mg/dL (0.6-1.0) Estimated GFR (Cockcroft-Gault) 29.4 BUN/Creatinine Ratio 12 (6-20) Glucose Level 102 mg/dL (70-99) Lactic Acid Level 2.6 mmol/L (0.4-2.0) 1.1 mmol/L (0.4-2.0) Calcium Level 8.4 mg/dL (8.5-10.1) Magnesium Level 1.8 mg/dL (1.8-2.4) Total Bilirubin 0.2 mg/dL (0.2-1.0) Aspartate Amino Transf (AST/SGOT) 18 U/L (15-37) Alanine Aminotransferase (ALT/SGPT) 18 U/L (14-59) Alkaline Phosphatase 101 U/L (46-116) Troponin I Quantitative < 0.017 ng/mL (0.000-0.055) < 0.017 ng/mL (0.000-0.055) PP-Iet-X-Type Natriuretic Peptide 76497 pg/mL (0-124) Total Protein 5.9 g/dL (6.4-8.2) Albumin 1.5 g/dL (3.4-5.0) Albumin/Globulin Ratio 0.3 (1.0-1.7) Procalcitonin 0.40 ng/mL (0.00-0.10) Urine Collection Type U cath Urine Color Yellow Urine Clarity Turbid Urine pH 5.5 (<5.0-8.0) Urine Specific [place] 1.015 (1.000-1.030) Urine Protein 30 mg/dL (NEG-TRACE) Urine Glucose (UA) Negative mg/dL (NEG) Urine Ketones (Stick) Negative mg/dL (NEG) Urine Blood Negative (NEG) Urine Nitrite Negative (NEG) Urine Bilirubin Negative (NEG) Urine Urobilinogen Dipstick 0.2 mg/dL (0.2 mg/dL) Urine Leukocyte Esterase Negative (NEG) Urine RBC 0 /HPF (0-2) Urine WBC Tntc /HPF (0-4) Urine Amorphous Sediment Present /HPF Urine Bacteria Moderate /HPF (0-FEW) Urine Hyaline Casts Few /HPF Urine Granular Casts Occasional /HPF Urine Mucus Slight /LPF Urine Yeast Present /HPF Urine Opiates Screen Neg (NEG) Urine Methadone Screen Neg (NEG) Urine Barbiturates Neg (NEG) Urine Phencyclidine Screen Neg (NEG) Urine Amphetamine/Methamphetamine Neg (NEG) Urine Benzodiazepines Screen Neg (NEG) Urine Cocaine Screen Neg (NEG) Urine Cannabinoids Screen Neg (NEG) Urine Ethyl Alcohol Neg (NEG) Influenza Type A Antigen Negative (NEGATIVE) Influenza Type B Antigen Negative (NEGATIVE) Test 07/15/20 00:01 Troponin I Quantitative < 0.017 ng/mL (0.000-0.055) Laboratory Tests Test 07/14/20 18:00 07/14/20 18:13 07/14/20 18:20 07/14/20 21:50 White Blood Count 18.2 x10^3/uL (4.0-11.0) Red Blood Count 2.78 x10^6/uL (3.50-5.40) Hemoglobin 8.5 g/dL (12.0-15.5) Hematocrit 27.1 % (36.0-47.0) Mean Corpuscular Volume 97 fL (79-100) Mean Corpuscular Hemoglobin 31 pg (25-35) Mean Corpuscular Hemoglobin Concent 32 g/dL (31-37) Red Cell Distribution Width 15.7 % (11.5-14.5) Platelet Count 313 x10^3/uL (140-400) Neutrophils (%) (Auto) 84 % (31-73) Lymphocytes (%) (Auto) 10 % (24-48) Monocytes (%) (Auto) 5 % (0-9) Eosinophils (%) (Auto) 1 % (0-3) Basophils (%) (Auto) 0 % (0-3) Neutrophils # (Auto) 15.4 x10^3/uL (1.8-7.7) Lymphocytes # (Auto) 1.8 x10^3/uL (1.0-4.8) Monocytes # (Auto) 0.9 x10^3/uL (0.0-1.1) Eosinophils # (Auto) 0.1 x10^3/uL (0.0-0.7) Basophils # (Auto) 0.0 x10^3/uL (0.0-0.2) Segmented Neutrophils % 79 % (35-66) Band Neutrophils % 4 % (0-9) Lymphocytes % 12 % (24-48) Monocytes % 4 % (0-10) Basophils % 1 % (0-3) Platelet Estimate Adequate (ADEQUATE) Polychromasia Present Poikilocytosis Slight Anisocytosis Slight Microcytosis Macrocytosis Slight Spherocytes Occ Ovalocytes Few Helmet Cells Present Crenated Cell Present Sodium Level 145 mmol/L (136-145) Potassium Level 3.4 mmol/L (3.5-5.1) Chloride Level 112 mmol/L (98-107) Carbon Dioxide Level 17 mmol/L (21-32) Anion Gap 16 (6-14) Blood Urea Nitrogen 20 mg/dL (7-20) Creatinine 1.7 mg/dL (0.6-1.0) Estimated GFR (Cockcroft-Gault) 29.4 BUN/Creatinine Ratio 12 (6-20) Glucose Level 102 mg/dL (70-99) Lactic Acid Level 2.6 mmol/L (0.4-2.0) 1.1 mmol/L (0.4-2.0) Calcium Level 8.4 mg/dL (8.5-10.1) Magnesium Level 1.8 mg/dL (1.8-2.4) Total Bilirubin 0.2 mg/dL (0.2-1.0) Aspartate Amino Transf (AST/SGOT) 18 U/L (15-37) Alanine Aminotransferase (ALT/SGPT) 18 U/L (14-59) Alkaline Phosphatase 101 U/L (46-116) Troponin I Quantitative < 0.017 ng/mL (0.000-0.055) < 0.017 ng/mL (0.000-0.055) XV-Njc-O-Type Natriuretic Peptide 61634 pg/mL (0-124) Total Protein 5.9 g/dL (6.4-8.2) Albumin 1.5 g/dL (3.4-5.0) Albumin/Globulin Ratio 0.3 (1.0-1.7) Procalcitonin 0.40 ng/mL (0.00-0.10) Urine Collection Type U cath Urine Color Yellow Urine Clarity Turbid Urine pH 5.5 (<5.0-8.0) Urine Specific [place] 1.015 (1.000-1.030) Urine Protein 30 mg/dL (NEG-TRACE) Urine Glucose (UA) Negative mg/dL (NEG) Urine Ketones (Stick) Negative mg/dL (NEG) Urine Blood Negative (NEG) Urine Nitrite Negative (NEG) Urine Bilirubin Negative (NEG) Urine Urobilinogen Dipstick 0.2 mg/dL (0.2 mg/dL) Urine Leukocyte Esterase Negative (NEG) Urine RBC 0 /HPF (0-2) Urine WBC Tntc /HPF (0-4) Urine Amorphous Sediment Present /HPF Urine Bacteria Moderate /HPF (0-FEW) Urine Hyaline Casts Few /HPF Urine Granular Casts Occasional /HPF Urine Mucus Slight /LPF Urine Yeast Present /HPF Urine Opiates Screen Neg (NEG) Urine Methadone Screen Neg (NEG) Urine Barbiturates Neg (NEG) Urine Phencyclidine Screen Neg (NEG) Urine Amphetamine/Methamphetamine Neg (NEG) Urine Benzodiazepines Screen Neg (NEG) Urine Cocaine Screen Neg (NEG) Urine Cannabinoids Screen Neg (NEG) Urine Ethyl Alcohol Neg (NEG) Influenza Type A Antigen Negative (NEGATIVE) Influenza Type B Antigen Negative (NEGATIVE) Test 07/15/20 00:01 Troponin I Quantitative < 0.017 ng/mL (0.000-0.055) Images Images Procedure: Temporary hemodialysis catheter placement at the bedside. Clinical Indication: Adult female requiring hemodialysis Sedation: Local anesthesia only Antibiotics: None Fluoro Time: Not applicable Contrast: None Sterility: All elements of maximal sterile barrier technique including the use of a cap, mask, sterile gown, sterile gloves, large sterile sheet, appropriate hand hygiene, and 2% chlorhexidine for cutaneous antisepsis (or acceptable alternative antiseptic per current guidelines) were followed for this procedure. Consent: The procedure was explained in its entirety to the patient or the patients designated containers sales representative by a member of the treatment team, including a discussion of the risks, benefits and commonly accepted alternatives to the procedure, as well as the expected consequences of no therapy whatsoever. Discussion of the risks included, but was not limited to, those that are most frequent and those that are rare but possibly severe or life-threatening, as well as the possibility of unforeseen complications. Technique and Findings: Following informed consent, the patient was prepped and draped in the usual sterile fashion. Ultrasound interrogation of the right neck revealed patency and compressibility of the right internal jugular vein. A 21-gauge micropuncture needle was used to gain access to this vein after 1% Lidocaine was used to achieve local anesthesia. A hardcopy ultrasound image was recorded. The needle was exchanged over a wire for serial dilators followed by a 20 cm Schon temporary hemodialysis catheter which was deployed in the expected location of the mid right atrium. The catheter flow rates were assessed manually and found to be excellent. The catheter was then flushed, packed with Heparin, capped, and sutured to the skin. Chest x-ray was then obtained to assess line position. Complications: No immediate Impression: 1. Ultrasound guided placement of a temporary hemodialysis catheter which exhibits excellent manual flow rates as described. DICTATED and SIGNED BY: RADHA HIGGINS MD DATE: 07/01/20 [id number] 0 Chest AP portable at 1823: Reason for examination: Altered mental status. Comparison is made to previous chest exam dated 07/02/2020. Heart and mediastinum are unchanged. Lung isabel continue show some mild infiltrates in the left perihilar and lower lobe distribution with some mild interval improvement. There is also increase in the interstitial markings bilaterally throughout both lung isabel which appears to be more prominent than on previous exam. No pleural effusion is seen. No acute bony abnormalities are present. Postop changes seen at the right axilla. IMPRESSION: Continued presence of infiltrates in the left perihilar and lower lobe distribution with some mild interval improvement. Diffuse increased interstitial markings bilaterally. This could reflect some interstitial edema or interstitial infiltrate. CT head without contrast: Comparison is made to previous study dated 07/11/2018. Helical images were obtained through the brain. No contrast was administered. Reconstruction was performed in coronal plane. Exposure: One or more of the following individualized dose reduction techniques were utilized for this examination: 1. Automated exposure control 2. Adjustment of the mA and/or kV according to patient size 3. Use of iterative reconstruction technique. Ventricular systems are prominent but symmetric consistent with patient's advanc ed age and generalized cerebral atrophy. No midline shift is seen. There is no evidence of intracranial hemorrhage, infarct, mass or edema. Some basal ganglia calcification is present on the right. No abnormalities of seen at the orbits. The paranasal sinuses show some mild mucosal disease in the left ethmoid air cells. There is a small polypoid lesion posteriorly in the left maxillary antrum measuring 8 mm in size. Remaining paranasal sinuses and mastoid air cells are clear. No acute abnormality seen in the skull. IMPRESSION: Cerebral atrophy. No acute intracranial abnormality evident. 8 mm polypoid lesion in the left maxillary antrum with some minimal mucosal disease in left ethmoid air cells. Electronically signed by: Verito Katz MD (07/14/2020 7:23 PM) [facility] DICTATED and SIGNED BY: VERITO KATZ MD DATE: 07/14/20 [id number] VTE Prophylaxis Ordered VTE Prophylaxis Devices: Contraindicated VTE Pharmacological Prophylaxi: Yes Assessment/Plan Assessment/Plan impression 1. acute metabolic encephalopathy, with altered mentation, new, already improving 2. hypoxic respiratory failure, improved CONSULT PULMONARY CT of the chest without contrast. 3. sepsis, pneumonia, possible gram negative, ASPIRATION TYPE blood cultures, pulmonary consult, emperic iv zosyn 4. recent Septic shock, likely source was pneumonia and a component of volume depletion 5.. 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 Severe protein-calorie malnutrition. 7. No significant tobacco history. 8, schizotypical behavior, on meds, , depression, seems at baseline 9. klebsiella UTI, improving 10. moderate to severe concentric left ventricular hypertrophy. 11. pressure wounds, sacral, leg RIGHT, suspect PVD wound care nurse consult, emperic iv antibiotics Arterial dopplers both legs today 12. Cerebral atrophy. No acute intracranial abnormality evident. ON ct head 07-14 13. dvt prophylaxis, sq lovenox 76 min pt exam, chart review, > 50% of time spent with exam, chart review, pt care coordination Justifications for Admission Other Justification DANIELE FRANKS MD Jul 15, 2020 08:37
[2020-07-15] MEDS ORDERED: PIP/TAZO PER PHARMACY MC PRN (09:00)
[2020-07-15] MEDS ORDERED: PIPERACILLIN/TAZOBACTAM 2.25 GM in IV NORMAL SALINE 50ML 50 ML IV SCH (09:00)
[2020-07-15 09:24] LABS: BASO # 0.1 x10^3/uL (0.0-0.2); BASO % 0 % (0-3); EOS # 0.2 x10^3/uL (0.0-0.7); EOS % 1 % (0-3); HEMATOCRIT 25.7 % (36.0-47.0); HEMOGLOBIN 8.2 g/dL (12.0-15.5); LYMPH # 1.1 x10^3/uL (1.0-4.8); LYMPH % 9 % (24-48); MEAN CORPUSCULAR HEMOGLOBIN 31 pg (25-35); MEAN CORPUSCULAR HGB CONC 32 g/dL (31-37); MEAN CORPUSCULAR VOLUME 98 fL (79-100); MONO # 0.6 x10^3/uL (0.0-1.1); MONO % 5 % (0-9); NEUT # 10.6 x10^3/uL (1.8-7.7); NEUT % 85 % (31-73); PLATELET COUNT 333 x10^3/uL (140-400); RED BLOOD COUNT 2.64 x10^6/uL (3.50-5.40); RED CELL DISTRIBUTION WIDTH 15.5 % (11.5-14.5); WHITE BLOOD COUNT 12.6 x10^3/uL (4.0-11.0)
[2020-07-15 09:47] LABS: CREATININE 1.5 mg/dL (0.6-1.0); GFR 33.9; POTASSIUM 3.2 mmol/L (3.5-5.1)
--- NOTE | 2020-07-15 10:23 | CONS ---
DATE OF CONSULTATION: PULMONARY CONSULTATION ATTENDING PHYSICIAN: Sajan Gustafson DO REASON FOR CONSULTATION: Abnormal chest x-ray. HISTORY OF PRESENT ILLNESS: The patient is a 75-year-old female who has history of hypertension, depression, CKD. She was brought into the hospital for sepsis related to UTI. She had a fever at the nursing facility. The patient was started on antibiotics. I have been asked to see her for further evaluation. She says she does not have any shortness of breath. She does have a mild cough. No nausea, vomiting, no diarrhea. She had a white cell count 18,000 on arrival. Her influenza screen was negative. She had a creatinine of 1.5. The patient had a chest x-ray, which was reviewed by me and it shows bilateral faint interstitial infiltrates. They have been present since 07/02/2020. I have been asked to see her for further evaluation. PAST MEDICAL HISTORY: Significant for history of anxiety, depression, GERD, hypertension, hypothyroidism, renal disease, bowel obstruction, CKD, dysphagia. PAST SURGICAL HISTORY: Cholecystectomy, colectomy, gastric bypass and all others that were listed in H and P. ALLERGIES: HYDROMORPHONE AND ROSUVASTATIN. MEDICATIONS: Reviewed as listed in the MRAD including Zosyn. REVIEW OF SYSTEMS: Ten-point system obtained. Pertinent positives discussed in my history of present illness, otherwise noncontributory. All systems that were negative were reviewed as well. SOCIAL HISTORY: Nonsmoker. FAMILY HISTORY: Noncontributory to lungs. PHYSICAL EXAMINATION: VITAL SIGNS: Reviewed. She is afebrile, blood pressure stable, pulse ox 97% on room air. NECK: Supple. LUNGS: With diminished breath sounds. CARDIOVASCULAR: With a regular rate. ABDOMEN: Soft, nontender. EXTREMITIES: With no pitting edema. LABORATORY DATA: Reviewed. White cell count was 18.2, now down to 12.6. Sodium 149, creatinine 1.5. IMPRESSION: 1. Cough with mildly prominent interstitial infiltrates, which have been present since her previous chest x-ray from 07/02/2020. The possibility of mild interstitial edema cannot be ruled out. Would recommend doing a CT of the chest without contrast. 2. Leukocytosis, likely secondary to urinary tract infection. We will obtain noncontrast CT chest to rule out any pneumonia. 3. Mild chronic kidney disease. 4. Hypernatremia per PCP. 5. Mildly increased troponin level. RECOMMENDATIONS: 1. Continue present antibiotics. 2. Obtain noncontrast CT chest. 3. Follow any urine cultures. 4. Discussed with RN. We will follow along with you. BISHOP GUADARRAMA MD DR: DIANA/chris JOB#: [id number] / [id number]
[2020-07-15 11:00] VITALS: BP 118/61
[2020-07-15] MEDS ORDERED: MAG HYDROX/ALUMINUM HYD/SIMETH 30 ML ORAL.SUSP PO PRN (11:30)
[2020-07-15] MEDS ORDERED: ACETAMINOPHEN 325 MG TABLET. PO PRN ×2 (11:30→13:30)
[2020-07-15] MEDS ORDERED: SODIUM PHOSPHATES 19/7GM 133 ML ENEMA. PR PRN (11:30)
[2020-07-15] MEDS ORDERED: guaiFENesin ORAL 200 MG/10 ML LIQUID. PO PRN (11:30)
[2020-07-15] MEDS ORDERED: 0.9 % SODIUM CHLORIDE 10 ML DISP.SYRIN. IV PRN (11:30)
[2020-07-15] MEDS ORDERED: DOCUSATE SODIUM 100 MG CAPSULE. PO PRN (11:30)
[2020-07-15] MEDS: PIPERACILLIN/TAZOBACTAM 3.375 GM in IV NORMAL SALINE 50ML 50 ML IV SCH ×2 (12:00→16:48)
[2020-07-15] MEDS ORDERED: SENNOSIDES/DOCUSATE 8.6/50MG TABLET. PO PRN (13:30)
[2020-07-15] MEDS ORDERED: POTASSIUM CHLORIDE 20 MEQ TABLET.ER. PO ONE (13:45)
[2020-07-15] MEDS: ONDANSETRON ODT 4 MG TAB.RAPDIS. PO SCH ×2 (14:00→22:00)
[2020-07-15] MEDS: IV DEXTROSE 5 %-0.45 % NACL 1,000 ML IV SCH (14:00)
[2020-07-15] MEDS: ENOXAPARIN 30 MG/0.3 ML SYRINGE. SQ SCH (14:01)
[2020-07-15] MEDS: buPROPion XL 150 MG TAB.ER.24H. PO SCH (14:12)
[2020-07-15] MEDS: FUROSEMIDE 40 MG TABLET. PO SCH (14:12)
[2020-07-15] MEDS: ARIPiprazole 5 MG TABLET PO SCH (14:13)
[2020-07-15] MEDS: ASPIRIN ENTERIC COATED 81 MG TABLET.DR. PO SCH (14:13)
[2020-07-15] MEDS: FERROUS SULFATE 325 MG TABLET. PO SCH (14:13)
[2020-07-15] MEDS: MULTIVITAMIN with MINERAL TABLET. PO SCH (14:13)
[2020-07-15] MEDS: SODIUM BICARBONATE 650 MG TABLET. PO SCH ×2 (14:14→21:09)
[2020-07-15] MEDS: CALCIUM CARB/VIT D3 500/200 TABLET. PO SCH (14:14)
[2020-07-15] MEDS: METOPROLOL TART IMMED RELEASE 25 MG TABLET. PO SCH ×2 (14:15→21:11)
[2020-07-15] MEDS: CITALOPRAM 20 MG TABLET. PO SCH (14:15)
[2020-07-15 15:00] VITALS: BP 131/67
--- NOTE | 2020-07-15 16:04 | RAD ---
PQRS Compliance Statement: One or more of the following individualized dose reduction techniques were utilized for this examinat ion: 1. Automated exposure control 2. Adjustment of the mA and/or kV according to patient size 3. Use of iterative reconstruction technique Exam performed: CT scan of the chest without contrast. Indication: Shortness of air Date of Service: 07/15/2020.Comparison: Single view chest from 07/14/2020 Technique: Contiguous helical acquisitions are obtained through the chest without IV contrast. Sagit alvin and coronal reformatted images are obtained and reviewed. CT chest findings: Structures of the thoracic inlet appear normal. Left thyroid nodule. Lack of IV contrast limits evalu ation of neck and intrathoracic great vessels, however they appear grossly normal in course and calib er. Mildly enlarged 1.3 cm precarinal as well as 1.1 cm subcarinal lymph node is seen. Calcified righ t hilar lymph nodes. Consolidative infiltrates with air bronchograms are seen in the posterior left lower lobe with small left pleural effusion. There are also few nodular and tree-in-bud pattern opacities in the left upper lobe with a small 1.2 cm nodule with questionable cavitation in the posterior left apex.. There are also similar nodular opacities in the right lung involving the upper middle and lower lobe. There is a dominant 7.1 mm groundglass nodule in the right lower lobe. Small right pleural effusion is seen. T here is no pneumothorax. Limited evaluation of the upper abdominal structures is unremarkable. There is identified to within the stomach. Spondylotic changes and multilevel disc degenerative changes are seen involving the thoracic spine. Impression CT chest: 1. Consolidated infiltrate with pleural effusion in the left lower lobe with scattered patchy nodular , tree-in-bud pattern opacities as well as patchy ground glass nodules seen in both lungs. A 1.2 cm n odule in the left apex with questionable cavitation is also present. Infectious etiology is favored. Given cavitary nodule, question of septic emboli is raised. Correlate clinically. Short-term interval follow-up CT chest after appropriate therapy may be obtained to evaluate interval resolution. Electronically signed by: Trista Blount MD (07/15/2020 4:01 PM) [id number]
--- NOTE | 2020-07-15 16:32 | NUR ---
Wound/Ostomy Care Wound Type/Assessment: Pt seen per wound care consult. See wound assessment. Pt assisted back to bed from the chair with assist X2. Pt has DTI to back, an intact blister to the left posterior thigh, and a stage III with DTI. Wounds cleansed, assessed, and measured. The toes are scabbed as well as the right brown. Treatment Recommendations/Plan: Recommendations for foam dressings to the DTI's on the back, skin prep to the left posterior thigh, and A&D ointment to the coccyx wound. Pt should remain without brief while in bed. Recommending turning every 2 hours using wedge. Education provided: Pt educated on dressing changes, PU treatment and management. Offloading surface/device: Pt is on a P-500 bed at this time, a wheelchair cushion ordered for this patient as well. Recommended Referrals/Tests: N/A Discharge Recommendations for dressings: Dressing change instructions left in room. No other wounds noted. Pt turned to back for ultrasound at this time and then encouraged to turn to left or right side when finished. Bed lowered and call light in reach. Wound care will follow up on 07/20/20.
[2020-07-15] MEDS: PANTOPRAZOLE 40 MG TABLET.DR. PO SCH (16:45)
[2020-07-15] MEDS: LIPASE/PROTEAS/AMYLAS 10/32/42 CAPSULE.DR. PO SCH (16:45)
--- NOTE | 2020-07-15 19:26 | RAD ---
Ultrasound abdominal aorta aorta and ultrasound abdomen color Doppler with spectral analysis HISTORY: Peripheral vascular disease Sonographic examination was performed of the abdominal aorta multiple static images were obtained. In addition color Doppler was applied as well as arterial waveform spectral analysis. Ultrasound abdominal aorta: The abdominal aorta is patent with normal caliber. This study is very limited due to overlying bowel gas as well as midline scar from prior surgery. The bifurcation of the abdominal aorta is not seen. T he common iliac arteries are not seen. Ultrasound abdomen color Doppler: There is normal waveform morphology in the abdominal aorta. As no abnormally high velocities. IMPRESSION: The abdominal aorta is patent has normal caliber however the bifurcation is not seen. Electronically signed by: Devon Kumar III, MD (07/15/2020 7:23 PM) [facility]
[2020-07-15] MEDS: MIRTAZAPINE 15 MG TABLET PO SCH (21:10)
[2020-07-15] MEDS: GABAPENTIN 400 MG CAPSULE. PO SCH (21:10)
[2020-07-15 22:21] VITALS: BP 104/64
[2020-07-15] MEDS: VITS A & D/LANOLIN TOPICAL OINTMENT 42GM TUBE. TP SCH (22:41)
[2020-07-15 23:00] VITALS: BP 108/59
[2020-07-16] MEDS: PIPERACILLIN/TAZOBACTAM 3.375 GM in IV NORMAL SALINE 50ML 50 ML IV SCH ×4 (00:18→16:56)
[2020-07-16] MEDS: IV DEXTROSE 5 %-0.45 % NACL 1,000 ML IV SCH ×2 (02:19→14:41)
[2020-07-16 03:00] VITALS: BP 123/66
[2020-07-16] MEDS: ONDANSETRON ODT 4 MG TAB.RAPDIS. PO SCH ×4 (06:00→22:00)
[2020-07-16] MEDS: PANTOPRAZOLE 40 MG TABLET.DR. PO SCH ×2 (06:27→16:55)
[2020-07-16] MEDS: LEVOTHYROXINE 100 MCG TABLET PO SCH (06:28)
[2020-07-16 07:00] VITALS: BP 118/71
[2020-07-16] MEDS: ARIPiprazole 5 MG TABLET PO SCH (08:05)
[2020-07-16] MEDS: LIPASE/PROTEAS/AMYLAS 10/32/42 CAPSULE.DR. PO SCH ×3 (08:05→16:55)
[2020-07-16] MEDS: buPROPion XL 150 MG TAB.ER.24H. PO SCH (08:06)
[2020-07-16] MEDS: CALCIUM CARB/VIT D3 500/200 TABLET. PO SCH (08:06)
[2020-07-16] MEDS: SODIUM BICARBONATE 650 MG TABLET. PO SCH ×3 (08:06→21:19)
[2020-07-16] MEDS: MULTIVITAMIN with MINERAL TABLET. PO SCH (08:07)
[2020-07-16] MEDS: FUROSEMIDE 40 MG TABLET. PO SCH (08:07)
[2020-07-16] MEDS: CITALOPRAM 20 MG TABLET. PO SCH (08:08)
[2020-07-16] MEDS: ASPIRIN ENTERIC COATED 81 MG TABLET.DR. PO SCH (08:08)
[2020-07-16] MEDS: FERROUS SULFATE 325 MG TABLET. PO SCH (08:08)
--- NOTE | 2020-07-16 08:37 | PDOC ---
PROGRESS NOTES Date of Service: DATE: 07/16/20 TIME: 08:36 Chief Complaint Chief Complaint VTE Prophylaxis Ordered VTE Prophylaxis Devices: Contraindicated VTE Pharmacological Prophylaxi: Yes Assessment/Plan Assessment/Plan impression 1. acute metabolic encephalopathy, with altered mentation, new, already improving 2. hypoxic respiratory failure, improved CONSULT PULMONARY re bronchoscopy CT of the chest without contrast. Consolidated infiltrate with pleural effusion in the left lower lobe with scattered patchy nodular, tree-in-bud pattern opacities as well as patchy ground glass nodules seen in both lungs. 07-15 3. sepsis, pneumonia, possible gram negative, ASPIRATION TYPE blood cultures, pulmonary consult, emperic iv zosyn 4. recent Septic shock, likely source was pneumonia and a component of volume depletion 5.. 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 Severe protein-calorie malnutrition. 7. No significant tobacco history. 8, schizotypical behavior, on meds, , depression, seems at baseline 9. klebsiella UTI, improving 10. moderate to severe concentric left ventricular hypertrophy. 11. pressure wounds, sacral, leg RIGHT, suspect PVD wound care nurse consult, emperic iv antibiotics Arterial dopplers both legs today 12. Cerebral atrophy. No acute intracranial abnormality evident. ON ct head 07-14 13. dvt prophylaxis, sq lovenox 14. electrolyte imbalance nephrology consulted, hypotonic fluids 37 min pt exam, chart review, > 50% of time spent with exam, chart review, pt care coordination 07-16 more alert, ct c/w consolidated lung infiltrate, now on iv zosyn, zyvox Justifications for Admission Other Justification sepsis with pneumonia History of Present Illness History of Present Illness Identification/Chief Complaint Chief Complaint presented the ED 07-14 from rehab part of a retirement to be evaluated for sepsis and altered mental status. Per EMS report which was obtained from the retirement staff patient was discharged from this facility on July 05, 2020 after having pneumonia. She was treated with antibiotics. 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 No acute intracranial abnormality evident. CONSULTS ID, PULM, NEPHROLOGY Past Medical History Past Medical History Past Medical History Past Medical History Past Medical History: Anxiety, Depression, GERD, Hypertension, Hypothyroid, Renal Disease Additional Past Medical Histor: bowel obstruction, CKD, DYSPHAGIA Past Surgical History: Cholecystectomy, Colectomy, Gastric Bypass, Hysterectomy, Tonsillectomy Additional Past Surgical Histo: COLON PERF REPAIN. ADHEASION REPAIR, Smoking Status: Never Smoker Alcohol Use: Rarely Drug Use: None FHX HTN Cardiovascular: HTN Pulmonary: No pertinent hx CENTRAL NERVOUS SYSTEM: Other GI: GERD, Other Heme/Onc: Anemia NOS Hepatobiliary: No pertinent hx Psych: Anxiety, Depression Musculoskeletal: Osteoarthritis, Other Rheumatologic: No pertinent hx Infectious disease: No pertinent hx Renal/: Chronic renal insuff Endocrine: Hypothyroidism Past Surgical History Past Surgical History: Cholecystectomy, Colon Resection, Other Family History Family History: No Significant, Hypertension Social History Smoke: No ALCOHOL: none Drugs: None Current Problem List Problem List Problems Medical Problems: (1) AMS (altered mental status) Status: Acute (2) Leukocytosis Status: Acute Vitals Vitals Vital Signs Date Time Temp Pulse Resp B/P (MAP) Pulse Ox O2 Delivery O2 Flow Rate FiO2 07/16/20 07:00 97.9 57 18 118/71 (87) 90 Room Air 97.9 07/15/20 23:00 97.0 Physical Exam Physical Exam Physical Exam Physical Exam Constitutional: Well developed, well nourished, no acute distress, non-toxic appearance. [], oriented HENT: Normocephalic, atraumatic, bilateral external ears normal, oropharynx mois t, no oral exudates, nose normal. [] Eyes: PERRLA, EOMI, conjunctiva normal, no discharge. [] Neck: Normal range of motion, no tenderness, supple, no stridor. [] Cardiovascular:Heart rate regular rhythm, no murmur [] Lungs & Thorax: Bilateral breath sounds clear to auscultation [] Abdomen: Bowel sounds normal, soft, no tenderness, no masses, no pulsatile masses. [] Skin: Warm, dry, no erythema, no rash. [] Back: No tenderness, no CVA tenderness. [] Extremities: No tenderness, no cyanosis, no clubbing, ROM intact, +1 edema noted to bilateral upper extremity. Right lateral brown with wound approx. 1X05 cm wound has no signs of infection. +2 bilateral pedal pulses. Neurologic: Alert and oriented X 3, normal motor function, normal sensory function, no focal deficits noted. Cranial nerves II through XII intact. Psychologic: Affect normal, judgment normal, mood normal. poor DP PULSES BILATERALLY [] General: Oriented X3, Cooperative, No acute distress HEENT: EOMI, Mucous membr. moist/pink Lungs: Clear to auscultation Heart: no gallops Breasts: Not examined Abdomen: Normal bowel sounds, Soft, No tenderness Rectal Exam: not examined Extremities: No cyanosis Neuro: Normal speech, Cranial nerves 3-12 NL Psych/Mental Status: Mental status NL, Mood NL General: Oriented X3, Cooperative, No acute distress Lungs: Clear, Crackles Abdomen: Normal bowel sounds, Soft, No tenderness Extremities: No cyanosis Labs LABS PATIENT: BURAK KOCH ACCOUNT: [id number] : 1945 LOCATION: [address] [place] [address] AGE: 75 SEX: F EXAM STATUS: ADM IN ORD. PHYSICIAN: BISHOP GUADARRAMA MD REASON: CHF VS PNA PROCEDURE: CT CHEST WO CONTRAST PQRS Compliance Statement: One or more of the following individualized dose reduction techniques were utilized for this examination: 1. Automated exposure control 2. Adjustment of the mA and/or kV according to patient size 3. Use of iterative reconstruction technique Exam performed: CT scan of the chest without contrast. Indication: Shortness of air Date of Service: 07/15/2020.Comparison: Single view chest from 07/14/2020 Technique: Contiguous helical acquisitions are obtained through the chest without IV contrast. Sagittal and coronal reformatted images are obtained and reviewed. CT chest findings: Structures of the thoracic inlet appear normal. Left thyroid nodule. Lack of IV contrast limits evaluation of neck and intrathoracic great vessels, however they appear grossly normal in course and caliber. Mildly enlarged 1.3 cm precarinal as well as 1.1 cm subcarinal lymph node is seen. Calcified right hilar lymph nodes. Consolidative infiltrates with air bronchograms are seen in the posterior left lower lobe with small left pleural effusion. There are also few nodular and tree-in-bud pattern opacities in the left upper lobe with a small 1.2 cm nodule with questionable cavitation in the posterior left apex.. There are also similar nodular opacities in the right lung involving the upper middle and lower lobe. There is a dominant 7.1 mm groundglass nodule in the right lower lobe. Small right pleural effusion is seen. There is no pneumothorax. Limited evaluation of the upper abdominal structures is unremarkable. There is identified to within the stomach. Spondylotic changes and multilevel disc degenerative changes are seen involving the thoracic spine. Impression CT chest: 1. Consolidated infiltrate with pleural effusion in the left lower lobe with scattered patchy nodular, tree-in-bud pattern opacities as well as patchy ground glass nodules seen in both lungs. A 1.2 cm nodule in the left apex with questionable cavitation is also present. Infectious etiology is favored. Given cavitary nodule, question of septic emboli is raised. Correlate clinically. Short-term interval follow-up CT chest after appropriate therapy may be obtained to evaluate interval resolution. Electronically signed by: Trista Bolunt MD (07/15/2020 4:01 PM) [id number] DICTATED and SIGNED BY: TRISTA BLOUNT MD DATE: 07/15/20 [id number] Signed PATIENT: BURAK KOCH ACCOUNT: [id number] : 1945 LOCATION: [address] [place] [address] AGE: 75 SEX: F EXAM STATUS: ADM IN ORD. PHYSICIAN: DANIELE FRANKS MD REASON: pvd PROCEDURE: DUPLEX LOWER EXTREMITY BILAT Ultrasound abdominal aorta aorta and ultrasound abdomen color Doppler with spectral analysis HISTORY: Peripheral vascular disease Sonographic examination was performed of the abdominal aorta multiple static im ages were obtained. In addition color Doppler was applied as well as arterial waveform spectral analysis. Ultrasound abdominal aorta: The abdominal aorta is patent with normal caliber. This study is very limited due to overlying bowel gas as well as midline scar from prior surgery. The bifurcation of the abdominal aorta is not seen. The common iliac arteries are not seen. Ultrasound abdomen color Doppler: There is normal waveform morphology in the abdominal aorta. As no abnormally high velocities. IMPRESSION: The abdominal aorta is patent has normal caliber however the bifurcation is not seen. Electronically signed by: Mira Anderson III, MD (07/15/2020 7:23 PM) [facility] DICTATED and SIGNED BY: MIRA ANDERSON III, MD DATE: 07/15/[id number] 0 Assessment and Plan Assessmemt and Plan Problems Medical Problems: (1) AMS (altered mental status) Status: Acute (2) Leukocytosis Status: Acute Comment Review of Relevant I have reviewed the following items isreal (where applicable) has been applied. Labs Laboratory Tests Test 07/14/20 18:00 07/14/20 18:13 07/14/20 18:20 07/14/20 21:50 White Blood Count 18.2 x10^3/uL (4.0-11.0) Red Blood Count 2.78 x10^6/uL (3.50-5.40) Hemoglobin 8.5 g/dL (12.0-15.5) Hematocrit 27.1 % (36.0-47.0) Mean Corpuscular Volume 97 fL (79-100) Mean Corpuscular Hemoglobin 31 pg (25-35) Mean Corpuscular Hemoglobin Concent 32 g/dL (31-37) Red Cell Distribution Width 15.7 % (11.5-14.5) Platelet Count 313 x10^3/uL (140-400) Neutrophils (%) (Auto) 84 % (31-73) Lymphocytes (%) (Auto) 10 % (24-48) Monocytes (%) (Auto) 5 % (0-9) Eosinophils (%) (Auto) 1 % (0-3) Basophils (%) (Auto) 0 % (0-3) Neutrophils # (Auto) 15.4 x10^3/uL (1.8-7.7) Lymphocytes # (Auto) 1.8 x10^3/uL (1.0-4.8) Monocytes # (Auto) 0.9 x10^3/uL (0.0-1.1) Eosinophils # (Auto) 0.1 x10^3/uL (0.0-0.7) Basophils # (Auto) 0.0 x10^3/uL (0.0-0.2) Segmented Neutrophils % 79 % (35-66) Band Neutrophils % 4 % (0-9) Lymphocytes % 12 % (24-48) Monocytes % 4 % (0-10) Basophils % 1 % (0-3) Platelet Estimate Adequate (ADEQUATE) Polychromasia Present Poikilocytosis Slight Anisocytosis Slight Microcytosis Macrocytosis Slight Spherocytes Occ Ovalocytes Few Helmet Cells Present Crenated Cell Present Sodium Level 145 mmol/L (136-145) Potassium Level 3.4 mmol/L (3.5-5.1) Chloride Level 112 mmol/L (98-107) Carbon Dioxide Level 17 mmol/L (21-32) Anion Gap 16 (6-14) Blood Urea Nitrogen 20 mg/dL (7-20) Creatinine 1.7 mg/dL (0.6-1.0) Estimated GFR (Cockcroft-Gault) 29.4 BUN/Creatinine Ratio 12 (6-20) Glucose Level 102 mg/dL (70-99) Lactic Acid Level 2.6 mmol/L (0.4-2.0) 1.1 mmol/L (0.4-2.0) Calcium Level 8.4 mg/dL (8.5-10.1) Magnesium Level 1.8 mg/dL (1.8-2.4) Total Bilirubin 0.2 mg/dL (0.2-1.0) Aspartate Amino Transf (AST/SGOT) 18 U/L (15-37) Alanine Aminotransferase (ALT/SGPT) 18 U/L (14-59) Alkaline Phosphatase 101 U/L (46-116) Troponin I Quantitative < 0.017 ng/mL (0.000-0.055) < 0.017 ng/mL (0.000-0.055) YP-Wal-B-Type Natriuretic Peptide 82309 pg/mL (0-124) Total Protein 5.9 g/dL (6.4-8.2) Albumin 1.5 g/dL (3.4-5.0) Albumin/Globulin Ratio 0.3 (1.0-1.7) Procalcitonin 0.40 ng/mL (0.00-0.10) Urine Collection Type U cath Urine Color Yellow Urine Clarity Turbid Urine pH 5.5 (<5.0-8.0) Urine Specific [place] 1.015 (1.000-1.030) Urine Protein 30 mg/dL (NEG-TRACE) Urine Glucose (UA) Negative mg/dL (NEG) Urine Ketones (Stick) Negative mg/dL (NEG) Urine Blood Negative (NEG) Urine Nitrite Negative (NEG) Urine Bilirubin Negative (NEG) Urine Urobilinogen Dipstick 0.2 mg/dL (0.2 mg/dL) Urine Leukocyte Esterase Negative (NEG) Urine RBC 0 /HPF (0-2) Urine WBC Tntc /HPF (0-4) Urine Amorphous Sediment Present /HPF Urine Bacteria Moderate /HPF (0-FEW) Urine Hyaline Casts Few /HPF Urine Granular Casts Occasional /HPF Urine Mucus Slight /LPF Urine Yeast Present /HPF Urine Opiates Screen Neg (NEG) Urine Methadone Screen Neg (NEG) Urine Barbiturates Neg (NEG) Urine Phencyclidine Screen Neg (NEG) Urine Amphetamine/Methamphetamine Neg (NEG) Urine Benzodiazepines Screen Neg (NEG) Urine Cocaine Screen Neg (NEG) Urine Cannabinoids Screen Neg (NEG) Urine Ethyl Alcohol Neg (NEG) Influenza Type A Antigen Negative (NEGATIVE) Influenza Type B Antigen Negative (NEGATIVE) Test 07/15/20 00:01 07/15/20 07:55 Troponin I Quantitative < 0.017 ng/mL (0.000-0.055) White Blood Count 12.6 x10^3/uL (4.0-11.0) Red Blood Count 2.64 x10^6/uL (3.50-5.40) Hemoglobin 8.2 g/dL (12.0-15.5) Hematocrit 25.7 % (36.0-47.0) Mean Corpuscular Volume 98 fL (79-100) Mean Corpuscular Hemoglobin 31 pg (25-35) Mean Corpuscular Hemoglobin Concent 32 g/dL (31-37) Red Cell Distribution Width 15.5 % (11.5-14.5) Platelet Count 333 x10^3/uL (140-400) Neutrophils (%) (Auto) 85 % (31-73) Lymphocytes (%) (Auto) 9 % (24-48) Monocytes (%) (Auto) 5 % (0-9) Eosinophils (%) (Auto) 1 % (0-3) Basophils (%) (Auto) 0 % (0-3) Neutrophils # (Auto) 10.6 x10^3/uL (1.8-7.7) Lymphocytes # (Auto) 1.1 x10^3/uL (1.0-4.8) Monocytes # (Auto) 0.6 x10^3/uL (0.0-1.1) Eosinophils # (Auto) 0.2 x10^3/uL (0.0-0.7) Basophils # (Auto) 0.1 x10^3/uL (0.0-0.2) Sodium Level 149 mmol/L (136-145) Potassium Level 3.2 mmol/L (3.5-5.1) Chloride Level 116 mmol/L (98-107) Carbon Dioxide Level 21 mmol/L (21-32) Anion Gap 12 (6-14) Blood Urea Nitrogen 19 mg/dL (7-20) Creatinine 1.5 mg/dL (0.6-1.0) Estimated GFR (Cockcroft-Gault) 33.9 Glucose Level 65 mg/dL (70-99) Calcium Level 8.0 mg/dL (8.5-10.1) Microbiology 07/14/20 Blood Culture - Preliminary, Resulted NO GROWTH AFTER 1 DAY Medications Current Medications Piperacillin Sod/ Tazobactam Sod 3.375 gm/Sodium Chloride 50 ml @ 100 mls/hr 1X ONCE IV Last administered on 07/14/20at 21:56; Start 07/14/20 at 20:45; Stop 07/14/20 at 21:14; Status DC Vancomycin HCl 250 ml @ 250 mls/hr 1X ONCE IV Last administered on 07/15/20at 01:52; Start 07/14/20 at 20:45; Stop 07/14/20 at 21:44; Status DC Ondansetron HCl (Zofran) 4 mg PRN Q8HRS PRN IV NAUSEA/VOMITING; Start 07/14/20 at 21:15; Stop 07/15/20 at 21:14; Status DC Morphine Sulfate (Morphine Sulfate) 4 mg PRN Q2HR PRN IV PAIN; Start 07/14/20 at 21:15; Stop 07/15/20 at 21:14; Status DC Piperacillin Sod/ Tazobactam Sod (Zosyn Per Pharmacy) 1 each PRN DAILY PRN MC SEE COMMENTS; Start 07/15/20 at 09:00 Piperacillin Sod/ Tazobactam Sod 2.25 gm/Sodium Chloride 50 ml @ 100 mls/hr Q6HRS IV Last administered on 07/15/20at 09:29; Start 07/15/20 at 09:00; Stop 07/15/20 at 11:27; Status DC Sodium Chloride (Normal Saline Flush) 3 ml QSHIFT PRN IV AFTER MEDS AND BLOOD DRAWS; Start 07/15/20 at 11:30 Dextrose/Sodium Chloride 1,000 ml @ 75 mls/hr [id number] IV Last administered on 07/16/20at 02:19; Start 07/15/20 at 11:30 Ondansetron HCl (Zofran) 4 mg PRN Q4HRS PRN IV NAUSEA/VOMITING; Start 07/15/20 at 11:30 Acetaminophen (Tylenol) 650 mg PRN Q4HRS PRN PO TEMP OVER 100.4F OR MILD PAIN; Start 07/15/20 at 11:30 Al Hydroxide/Mg Hydroxide (Mylanta Plus Xs) 30 ml PRN DAILY PRN PO HEARTBURN / GAS; Start 07/15/20 at 11:30 Sodium Monofluorophosphate (Fleet Adult) 133 ml PRN DAILY PRN ID CONSTIPATION; Start 07/15/20 at 11:30 Docusate Sodium (Colace) 100 mg PRN BID PRN PO HARD STOOLS; Start 07/15/20 at 11:30 Guaifenesin (Robitussin) 200 mg PRN Q4HRS PRN PO COUGH; Start 07/15/20 at 11:30 Enoxaparin Sodium (Lovenox 30mg Syringe) 30 mg Q24H SQ Last administered on 07/15/20at 14:01; Start 07/15/20 at 12:00 Piperacillin Sod/ Tazobactam Sod 3.375 gm/Sodium Chloride 50 ml @ 100 mls/hr Q6HRS IV Last administered on 07/16/20at 06:26; Start 07/15/20 at 12:00 Acetaminophen (Tylenol) 650 mg PRN Q4HRS PRN PO TEMP OVER 100.4F OR MILD PAIN; Start 07/15/20 at 13:30 Aspirin (Ecotrin) 81 mg DAILYWBKFT PO Last administered on 07/16/20at 08:08; Start 07/15/20 at 14:00 Ergocalciferol (Vitamin D2) 50,000 unit Fr PO Last administered on 1/29/21at 08:06; Start 07/16/20 at 09:00 Ferrous Sulfate (Feosol) 325 mg DAILY PO Last administered on 07/16/20 08:08; Start 07/15/20 at 14:00 Furosemide (Lasix) 40 mg DAILY PO Last administered on 07/16/20at 08:07; Start 07/15/20 at 14:00 Gabapentin (Neurontin) 1,200 mg QHS PO Last administered on 07/15/20at 21:10; Start 07/15/20 at 21:00 Metoprolol Tartrate (Lopressor) 25 mg BID PO Last administered on 07/15/20 21:11; Start 07/15/20 at 14:00 Senna/Docusate Sodium (Senna Plus) 2 tab PRN BID PRN PO CONSTIPATION; Start 07/15/20 at 13:30 Sodium Bicarbonate (Sodium Bicarbonate) 1,300 mg TID PO Last administered on 07/16/20 08:06; Start 07/15/20 at 14:00 Aripiprazole (Abilify) 30 mg DAILY PO Last administered on 07/16/20at 08:05; Start 07/15/20 at 14:00 Bupropion HCl (Wellbutrin Xl) 300 mg DAILY PO Last administered on 07/16/20 08:06; Start 07/15/20 at 14:00 Calcium/Vitamin D (Oscal D 500mg/ 200uts) 2 tab DAILY PO Last administered on 07/16/20at 08:06; Start 07/15/20 at 14:00 Citalopram Hydrobromide (CeleXA) 20 mg DAILY PO Last administered on 07/16/20 08:08; Start 07/15/20 at 14:00 Levothyroxine Sodium (Synthroid) 100 mcg DAILY06 PO Last administered on 07/16/20 06:28; Start 07/16/20 at 06:00 Amylase/Lipase/ Protease (Zenpep 10,000) 3 cap TIDWMEALS PO Last administered on 07/16/20 08:05; Start 07/15/20 at 17:00 Mirtazapine (Remeron) 30 mg QHS PO Last administered on 07/15/20at 21:10; Start 07/15/20 at 21:00 Multivitamins (Thera M Plus) 1 tab DAILY PO Last administered on 07/16/20at 08:07; Start 07/15/20 at 14:00 Pantoprazole Sodium (Protonix) 40 mg BIDAC PO Last administered on 07/16/20at 06:27; Start 07/15/20 at 16:30 Ondansetron HCl (Zofran Odt) 4 mg Q8HRS PO ; Start 07/15/20 at 14:00 Non-Formulary Medication (Selenium ) 0.5 cap DAILY PO ; Start 07/16/20 at 09:00; Status UNV Potassium Chloride (Klor-Con) 40 meq 1X ONCE PO Last administered on 07/15/20at 14:14; Start 07/15/20 at 13:45; Stop 07/15/20 at 13:57; Status DC Vitamin A/Vitamin D (Vitamin A & D Ointment) 1 uziel BID TP Last administered on 07/15/20at 22:41; Start 07/15/20 at 21:00 Active Scripts Active Cephalexin 250 Mg Capsule 500 Mg PO TID Metoprolol Tartrate 25 Mg Tablet 25 Mg PO BID Gabapentin (Gabapentin) 400 Mg Capsule 1,200 Mg PO QHS 30 Days Aspirin Ec (Aspirin) 81 Mg Tablet. 81 Mg PO DAILYWBKFT Tylenol (Acetaminophen) 325 Mg Tablet 650 Mg PO PRN Q4HRS PRN 30 Days Furosemide 40 Mg Tablet 40 Mg PO DAILY 30 Days Senna-Time S Tablet (Sennosides/Docusate Sodium) 1 Each Tablet 2 Tab PO PRN BID PRN 30 Days Reported Selenium 200 Mcg Capsule 0.5 Cap PO DAILY 30 Days Marcia Stewart 36,000 Units Capsule (Lipase/Protease/Amylase) 1 Each Capsule. 1 Each PO TIDAC Zofran (Ondansetron Hcl) 4 Mg Tablet 1 Tab PO Q8HRS Mirtazapine 30 Mg Tablet 1 Tab PO QHS Levothyroxine (Levothyroxine Sodium) 100 Mcg Capsule 100 Mcg PO DAILY Ferrous Sulfate 325 Mg Tablet 1 Tab PO DAILY Vitamin D2 (Ergocalciferol (Vitamin D2)) 1,250 Mcg Capsule 1,250 Mcg PO DAILY Clonazepam 1 Mg Tablet 1 Mg PO BID Wellbutrin Xl (Bupropion Hcl) 300 Mg Tab.er.24h 1 Tab PO DAILY Abilify (Aripiprazole) 30 Mg Tablet 1 Tab PO DAILY 30 Days Calcium + Vitamin D Tablet (Calcium Carbonate/Vitamin D3) 1 Each Tablet 2 Each PO DAILY Multivitamins (Multivitamin) 1 Each Tablet 1 Tab PO DAILY Sodium Bicarbonate 650 Mg Tablet 2 Tab PO TID Omeprazole 40 Mg Capsule.dr 40 Mg PO BID Citalopram Hbr (Citalopram Hydrobromide) 40 Mg Tablet 20 Mg PO DAILY Vitals/I & O Vital Sign - Last 24 Hours 07/15/20 07/15/20 07/15/20 07/15/20 11:00 14:15 15:00 20:00 Temp 98.5 98.2 98.5 98.2 Pulse 79 79 74 Resp 17 17 B/P (MAP) 118/61 (80) 118/61 131/67 (88) Pulse Ox 94 91 O2 Delivery Room Air Room Air Room Air 07/15/20 07/15/20 07/15/20 07/16/20 21:11 22:21 23:00 03:00 Temp 97.8 98.5 97.7 97.8 98.5 97.7 Pulse 68 68 63 59 Resp 18 18 16 B/P (MAP) 104/64 104/64 (77) 108/59 (75) 123/66 (85) Pulse Ox 95 95 O2 Flow Rate 97.0 07/16/20 07:00 Temp 97.9 97.9 Pulse 57 Resp 18 B/P (MAP) 118/71 (87) Pulse Ox 90 O2 Delivery Room Air Intake and Output 07/15/20 07/15/20 07/16/20 15:00 23:00 07:00 Intake Total 120 ml Output Total 350 ml Balance -230 ml Justicifation of Admission Dx: Justifications for Admission: Justification of Admission Dx: Yes DANIELE FRANKS MD Jul 16, 2020 08:37
[2020-07-16] MEDS: METOPROLOL TART IMMED RELEASE 25 MG TABLET. PO SCH ×2 (09:00→21:19)
[2020-07-16] MEDS ORDERED: SELENIUM PO SCH (09:00)
[2020-07-16] MEDS ORDERED: ERGOCALCIFEROL (VITAMIN D2) 50,000 UNIT CAPSULE. PO SCH (09:00)
--- NOTE | 2020-07-16 09:04 | PDOC ---
Infectious Disease Note Vital Sign Vital Signs Vital Signs Date Time Temp Pulse Resp B/P (MAP) Pulse Ox O2 Delivery O2 Flow Rate FiO2 07/16/20 07:00 97.9 57 18 118/71 (87) 90 Room Air 97.9 07/15/20 23:00 97.0 Labs Micro Microbiology 07/14/20 Blood Culture - Preliminary, Resulted NO GROWTH AFTER 1 DAY Objective Assessment pt seen, consult dictated Plan Plan of Care / DREW ASTORGA MD Jul 16, 2020 09:04
[2020-07-16] MEDS: ONDANSETRON PF 4 MG/2 ML VIAL. IV PRN (09:08)
[2020-07-16] MEDS: VITS A & D/LANOLIN TOPICAL OINTMENT 42GM TUBE. TP SCH ×2 (09:12→21:20)
--- NOTE | 2020-07-16 09:54 | CONS ---
DATE OF CONSULTATION: 07/16/2020 REQUESTING PHYSICIAN: Dr. Chapman. REASON FOR CONSULTATION: Possible sepsis. HISTORY OF PRESENT ILLNESS: This is a 75-year-old female who was transferred from rehab with 103 fever. The patient denied any other symptoms. The patient denied any urinary symptoms. Denied any chest pain, shortness of breath, abdominal pain, headache or visual symptoms. She had no other complaints. The patient was found to have leukocytosis, abnormal urinalysis, abnormal chest x-ray. The patient has been put on Zosyn and consult has been requested. The patient right now denies any other complaints, other than today she noticed cough. The patient is not able to walk. PAST MEDICAL HISTORY: Positive for hypertension, hypothyroidism, renal insufficiency, gastroesophageal reflux disease, history of anxiety, depression, has had cholecystectomy, colectomy, gastric bypass, hysterectomy, colon perforation repair done. SOCIAL HISTORY: Negative for smoking, alcohol or illicit drug use. ALLERGIES: LISTED ALLERGIC TO HYDROMORPHONE AND ROSUVASTATIN. CURRENT MEDICATIONS: Reviewed. ROS : as per HPI, rest neg. PHYSICAL EXAMINATION: GENERAL: Alert female, not in any distress. VITAL SIGNS: Stable. She has not had any fever since admission. Temperature 97.9, pulse 57, respirations 18, blood pressure 118/71. HEENT: Both pupils are round and reacting. No conjunctival lesion, no lesion in the mouth. NECK: Supple, no JVP, no lymphadenopathy. LUNGS: Clear to auscultation and percussion. HEART: S1, S2 regular. ABDOMEN: Soft, nontender, no organomegaly. EXTREMITIES: No edema, cyanosis. SKIN: Unremarkable. NEUROLOGIC: The patient is alert, awake and appropriate. Does have poor memory, but she is able to move all the extremities. LABORATORY DATA: White count is 12.6, down from 18,000. BUN and creatinine is 19 and 1.5. Lactic acid was up to 2.6. Urinalysis showed too numerous to count wbc's. Blood cultures so far negative. The patient had a arterial duplex, which was negative. Chest CT showed consolidated infiltrate with pleural effusion in the left lower lobe with scattered patchy nodular tree-in-bud pattern opacity in both lungs. Also, there is 1.2 cm nodule in the left apex with questionable cavitation. IMPRESSION: 1. Fever. 2. Leukocytosis. 3. Pulmonary infiltrate with a tree-in-bud opacity as well as a possible cavitation. 4. Abnormal urinalysis, although no other urinary symptoms. 5. Debility and self-care problem. 6. Suspected mild dementia. RECOMMENDATIONS: Continue Zosyn, supportive care and we will talk to the Pulmonary for possible bronchoscopy and culture for bacterial and AFB stain and culture. Thank you very much, Dr. Chapman, for giving me the opportunity to participate in this patient's care. DREW ASTORGA MD DR: ALEJO/chris JOB#: [id number] / [id number] NAHEED
[2020-07-16 10:20] LABS: BASO % 0 % (0-3); EOS # 0.2 x10^3/uL (0.0-0.7); EOS % 2 % (0-3); HEMATOCRIT 29.1 % (36.0-47.0); HEMOGLOBIN 9.2 g/dL (12.0-15.5); LYMPH # 1.2 x10^3/uL (1.0-4.8); LYMPH % 15 % (24-48); MEAN CORPUSCULAR HEMOGLOBIN 31 pg (25-35); MEAN CORPUSCULAR HGB CONC 32 g/dL (31-37); MEAN CORPUSCULAR VOLUME 97 fL (79-100); MONO # 0.5 x10^3/uL (0.0-1.1); MONO % 7 % (0-9); NEUT # 6.1 x10^3/uL (1.8-7.7); NEUT % 76 % (31-73); PLATELET COUNT 263 x10^3/uL (140-400); RED CELL DISTRIBUTION WIDTH 15.1 % (11.5-14.5)
--- NOTE | 2020-07-16 10:28 | PDOC ---
PULMONARY PROGRESS NOTES DATE: 07/16/20 TIME: 10:24 Subjective Patient feels better, not more short of air. No hemoptysis. No chest pain no pressure. Vitals Vital Signs Date Time Temp Pulse Resp B/P (MAP) Pulse Ox O2 Delivery O2 Flow Rate FiO2 07/16/20 09:00 57 118/71 07/16/20 07:00 97.9 18 90 Room Air 97.9 07/15/20 23:00 97.0 ROS: No Nausea, No Chest Pain, No Abdominal Pain, No Increase Cough General: Alert HEENT: Other Lungs: Clear, Crackles Cardiovascular: S1, S2 Abdomen: Soft Extremities: No Edema Labs Laboratory Tests Test 07/14/20 18:00 07/14/20 18:13 07/14/20 18:20 07/14/20 21:50 White Blood Count 18.2 x10^3/uL (4.0-11.0) Red Blood Count 2.78 x10^6/uL (3.50-5.40) Hemoglobin 8.5 g/dL (12.0-15.5) Hematocrit 27.1 % (36.0-47.0) Mean Corpuscular Volume 97 fL (79-100) Mean Corpuscular Hemoglobin 31 pg (25-35) Mean Corpuscular Hemoglobin Concent 32 g/dL (31-37) Red Cell Distribution Width 15.7 % (11.5-14.5) Platelet Count 313 x10^3/uL (140-400) Neutrophils (%) (Auto) 84 % (31-73) Lymphocytes (%) (Auto) 10 % (24-48) Monocytes (%) (Auto) 5 % (0-9) Eosinophils (%) (Auto) 1 % (0-3) Basophils (%) (Auto) 0 % (0-3) Neutrophils # (Auto) 15.4 x10^3/uL (1.8-7.7) Lymphocytes # (Auto) 1.8 x10^3/uL (1.0-4.8) Monocytes # (Auto) 0.9 x10^3/uL (0.0-1.1) Eosinophils # (Auto) 0.1 x10^3/uL (0.0-0.7) Basophils # (Auto) 0.0 x10^3/uL (0.0-0.2) Segmented Neutrophils % 79 % (35-66) Band Neutrophils % 4 % (0-9) Lymphocytes % 12 % (24-48) Monocytes % 4 % (0-10) Basophils % 1 % (0-3) Platelet Estimate Adequate (ADEQUATE) Polychromasia Present Poikilocytosis Slight Anisocytosis Slight Microcytosis Macrocytosis Slight Spherocytes Occ Ovalocytes Few Helmet Cells Present Crenated Cell Present Sodium Level 145 mmol/L (136-145) Potassium Level 3.4 mmol/L (3.5-5.1) Chloride Level 112 mmol/L (98-107) Carbon Dioxide Level 17 mmol/L (21-32) Anion Gap 16 (6-14) Blood Urea Nitrogen 20 mg/dL (7-20) Creatinine 1.7 mg/dL (0.6-1.0) Estimated GFR (Cockcroft-Gault) 29.4 BUN/Creatinine Ratio 12 (6-20) Glucose Level 102 mg/dL (70-99) Lactic Acid Level 2.6 mmol/L (0.4-2.0) 1.1 mmol/L (0.4-2.0) Calcium Level 8.4 mg/dL (8.5-10.1) Magnesium Level 1.8 mg/dL (1.8-2.4) Total Bilirubin 0.2 mg/dL (0.2-1.0) Aspartate Amino Transf (AST/SGOT) 18 U/L (15-37) Alanine Aminotransferase (ALT/SGPT) 18 U/L (14-59) Alkaline Phosphatase 101 U/L (46-116) Troponin I Quantitative < 0.017 ng/mL (0.000-0.055) < 0.017 ng/mL (0.000-0.055) SB-Gkn-I-Type Natriuretic Peptide 55514 pg/mL (0-124) Total Protein 5.9 g/dL (6.4-8.2) Albumin 1.5 g/dL (3.4-5.0) Albumin/Globulin Ratio 0.3 (1.0-1.7) Procalcitonin 0.40 ng/mL (0.00-0.10) Urine Collection Type U cath Urine Color Yellow Urine Clarity Turbid Urine pH 5.5 (<5.0-8.0) Urine Specific [place] 1.015 (1.000-1.030) Urine Protein 30 mg/dL (NEG-TRACE) Urine Glucose (UA) Negative mg/dL (NEG) Urine Ketones (Stick) Negative mg/dL (NEG) Urine Blood Negative (NEG) Urine Nitrite Negative (NEG) Urine Bilirubin Negative (NEG) Urine Urobilinogen Dipstick 0.2 mg/dL (0.2 mg/dL) Urine Leukocyte Esterase Negative (NEG) Urine RBC 0 /HPF (0-2) Urine WBC Tntc /HPF (0-4) Urine Amorphous Sediment Present /HPF Urine Bacteria Moderate /HPF (0-FEW) Urine Hyaline Casts Few /HPF Urine Granular Casts Occasional /HPF Urine Mucus Slight /LPF Urine Yeast Present /HPF Urine Opiates Screen Neg (NEG) Urine Methadone Screen Neg (NEG) Urine Barbiturates Neg (NEG) Urine Phencyclidine Screen Neg (NEG) Urine Amphetamine/Methamphetamine Neg (NEG) Urine Benzodiazepines Screen Neg (NEG) Urine Cocaine Screen Neg (NEG) Urine Cannabinoids Screen Neg (NEG) Urine Ethyl Alcohol Neg (NEG) Influenza Type A Antigen Negative (NEGATIVE) Influenza Type B Antigen Negative (NEGATIVE) Test 07/15/20 00:01 07/15/20 07:55 07/16/20 09:45 Troponin I Quantitative < 0.017 ng/mL (0.000-0.055) White Blood Count 12.6 x10^3/uL (4.0-11.0) 8.0 x10^3/uL (4.0-11.0) Red Blood Count 2.64 x10^6/uL (3.50-5.40) 3.00 x10^6/uL (3.50-5.40) Hemoglobin 8.2 g/dL (12.0-15.5) 9.2 g/dL (12.0-15.5) Hematocrit 25.7 % (36.0-47.0) 29.1 % (36.0-47.0) Mean Corpuscular Volume 98 fL (79-100) 97 fL (79-100) Mean Corpuscular Hemoglobin 31 pg (25-35) 31 pg (25-35) Mean Corpuscular Hemoglobin Concent 32 g/dL (31-37) 32 g/dL (31-37) Red Cell Distribution Width 15.5 % (11.5-14.5) 15.1 % (11.5-14.5) Platelet Count 333 x10^3/uL (140-400) 263 x10^3/uL (140-400) Neutrophils (%) (Auto) 85 % (31-73) 76 % (31-73) Lymphocytes (%) (Auto) 9 % (24-48) 15 % (24-48) Monocytes (%) (Auto) 5 % (0-9) 7 % (0-9) Eosinophils (%) (Auto) 1 % (0-3) 2 % (0-3) Basophils (%) (Auto) 0 % (0-3) 0 % (0-3) Neutrophils # (Auto) 10.6 x10^3/uL (1.8-7.7) 6.1 x10^3/uL (1.8-7.7) Lymphocytes # (Auto) 1.1 x10^3/uL (1.0-4.8) 1.2 x10^3/uL (1.0-4.8) Monocytes # (Auto) 0.6 x10^3/uL (0.0-1.1) 0.5 x10^3/uL (0.0-1.1) Eosinophils # (Auto) 0.2 x10^3/uL (0.0-0.7) 0.2 x10^3/uL (0.0-0.7) Basophils # (Auto) 0.1 x10^3/uL (0.0-0.2) 0.0 x10^3/uL (0.0-0.2) Sodium Level 149 mmol/L (136-145) Potassium Level 3.2 mmol/L (3.5-5.1) Chloride Level 116 mmol/L (98-107) Carbon Dioxide Level 21 mmol/L (21-32) Anion Gap 12 (6-14) Blood Urea Nitrogen 19 mg/dL (7-20) Creatinine 1.5 mg/dL (0.6-1.0) Estimated GFR (Cockcroft-Gault) 33.9 Glucose Level 65 mg/dL (70-99) Calcium Level 8.0 mg/dL (8.5-10.1) Laboratory Tests Test 07/16/20 09:45 White Blood Count 8.0 x10^3/uL (4.0-11.0) Red Blood Count 3.00 x10^6/uL (3.50-5.40) Hemoglobin 9.2 g/dL (12.0-15.5) Hematocrit 29.1 % (36.0-47.0) Mean Corpuscular Volume 97 fL (79-100) Mean Corpuscular Hemoglobin 31 pg (25-35) Mean Corpuscular Hemoglobin Concent 32 g/dL (31-37) Red Cell Distribution Width 15.1 % (11.5-14.5) Platelet Count 263 x10^3/uL (140-400) Neutrophils (%) (Auto) 76 % (31-73) Lymphocytes (%) (Auto) 15 % (24-48) Monocytes (%) (Auto) 7 % (0-9) Eosinophils (%) (Auto) 2 % (0-3) Basophils (%) (Auto) 0 % (0-3) Neutrophils # (Auto) 6.1 x10^3/uL (1.8-7.7) Lymphocytes # (Auto) 1.2 x10^3/uL (1.0-4.8) Monocytes # (Auto) 0.5 x10^3/uL (0.0-1.1) Eosinophils # (Auto) 0.2 x10^3/uL (0.0-0.7) Basophils # (Auto) 0.0 x10^3/uL (0.0-0.2) Medications Active Scripts Medications Dose Route/Sig Max Daily Dose Days Date Category Cephalexin 250 Mg Capsule 500 Mg PO TID 07/06/20 Rx Metoprolol Tartrate 25 Mg Tablet 25 Mg PO BID 07/06/20 Rx Gabapentin (Gabapentin) 400 Mg Capsule 1,200 Mg PO QHS 30 07/06/20 Rx Aspirin Ec (Aspirin) 81 Mg Tablet. 81 Mg PO [id number] 07/06/20 Rx Selenium 200 Mcg Capsule 0.5 Cap PO DAILY 30 07/01/20 Reported Marcia Stewart 36,000 Units Capsule (Lipase/Protease/Amylase) 1 Each Capsule. 1 Each PO TIDAC 07/01/20 Reported Zofran (Ondansetron Hcl) 4 Mg Tablet 1 Tab PO Q8HRS 07/01/20 Reported Mirtazapine 30 Mg Tablet 1 Tab PO QHS 07/01/20 Reported Levothyroxine (Levothyroxine Sodium) 100 Mcg Capsule 100 Mcg PO DAILY 07/01/20 Reported Ferrous Sulfate 325 Mg Tablet 1 Tab PO DAILY 07/01/20 Reported Vitamin D2 (Ergocalciferol (Vitamin D2)) 1,250 Mcg Capsule 1,250 Mcg PO DAILY 07/01/20 Reported Clonazepam 1 Mg Tablet 1 Mg PO BID 07/01/20 Reported Wellbutrin Xl (Bupropion Hcl) 300 Mg Tab.er.24h 1 Tab PO DAILY 07/01/20 Reported Abilify (Aripiprazole) 30 Mg Tablet 1 Tab PO DAILY 30 07/01/20 Reported Tylenol (Acetaminophen) 325 Mg Tablet 650 Mg PO PRN Q4HRS PRN 30 09/17/18 Rx Furosemide 40 Mg Tablet 40 Mg PO DAILY 30 09/17/18 Rx Senna-Time S Tablet (Sennosides/Docusate Sodium) 1 Each Tablet 2 Tab PO PRN BID PRN 30 09/17/18 Rx Calcium + Vitamin D Tablet (Calcium Carbonate/Vitamin D3) 1 Each Tablet 2 Each PO DAILY 09/14/18 Reported Multivitamins (Multivitamin) 1 Each Tablet 1 Tab PO DAILY 09/14/18 Reported Sodium Bicarbonate 650 Mg Tablet 2 Tab PO TID 09/14/18 Reported Omeprazole 40 Mg Capsule.dr 40 Mg PO BID 10/13/13 Reported Citalopram Hbr (Citalopram Hydrobromide) 40 Mg Tablet 20 Mg PO DAILY 10/13/13 Reported Impression . IMPRESSION: 1. Abnormal chest x-ray, abnormal CT chest, revealing several findings consolidation left lower lobe, nodular infiltrates, tree-in-bud opacities. 2. Leukocytosis 3. Mild chronic kidney disease. 4. Hypernatremia per PCP. 5. Mildly increased troponin level. 6. Left lower lobe pneumonia with small effusion Discussion reviewed CT chest, discussed with Dr. Montesinos, infectious disease service. We will proceed with diagnostic bronchoscopy, rule out the possibility of nontuberculous Mycobacterium, MAC. Impression CT chest: 1. Consolidated infiltrate with pleural effusion in the left lower lobe with scattered patchy nodular, tree-in-bud pattern opacities as well as patchy ground glass nodules seen in both lungs. A 1.2 cm nodule in the left apex with questionable cavitation is also present. Infectious etiology is favored. Given cavitary nodule, question of septic emboli is raised. Correlate clinically. Short-term interval follow-up CT chest after appropriate therapy may be obtained to evaluate interval resolution. Plan . Clinical status stable, continue antibiotics per ID Bronchoscopy on Sunday Follow blood cultures Urine histo antigen CAROLINA CANNON MD Jul 16, 2020 10:28
[2020-07-16] MEDS ORDERED: POTASSIUM CHLORIDE 20 MEQ TABLET.ER. PO ONE (10:30)
[2020-07-16 10:31] LABS: ALBUMIN 1.2 g/dL (3.4-5.0); ALBUMIN/GLOBULIN RATIO 0.3 (1.0-1.7); CALCIUM 7.6 mg/dL (8.5-10.1); CREATININE 1.5 mg/dL (0.6-1.0); GFR 33.9; POTASSIUM 3.5 mmol/L (3.5-5.1); TOTAL BILIRUBIN 0.2 mg/dL (0.2-1.0); TOTAL PROTEIN 5.6 g/dL (6.4-8.2)
[2020-07-16 11:00] VITALS: BP 122/68
[2020-07-16] MEDS: ENOXAPARIN 30 MG/0.3 ML SYRINGE. SQ SCH (11:58)
[2020-07-16 15:00] VITALS: BP 110/65
--- NOTE | 2020-07-16 16:30 | PDOC2 ---
CONSULT Date of Consult Date of Consult DATE: 07/16/20 TIME: 16:21 Reason for Consult Reason for Consult: RENAL FAILURE Referring Physician Referring Physician: SILVINO Identification/Chief Complaint Chief Complaint FEVER Source Source: Chart review History of Present Illness Reason for Visit: THIS IS A 75 YR OLD WITH FEVER. NOTED TO HAVE HIGH WBC AND LLL CONSOLIDATION. ON ABX. NO NEPHRITIS ON UA. CR OF 1.5 AND STABLE. SHE HAS STAGE 3B CKD WITH BASELINE CR OF 1.3 TO 1.5. CKD DUE TO HX OF HTN. NO NEPHROTOXINS OR HEMODYNAMIC INSTABILITY. HX NEG EXCEPT FOR INCONTINENCE. PT IS NOT A GOOD HISTORIAN. SHE SEEMS TO HAVE MILD DEMENTIA Past Medical History Cardiovascular: HTN Pulmonary: No pertinent hx CENTRAL NERVOUS SYSTEM: Other GI: GERD, Other Heme/Onc: Anemia NOS Hepatobiliary: No pertinent hx Psych: Anxiety, Depression Musculoskeletal: Osteoarthritis, Other Rheumatologic: No pertinent hx Infectious disease: No pertinent hx Renal/: Chronic renal insuff Endocrine: Hypothyroidism Past Surgical History Past Surgical History: Cholecystectomy, Colon Resection, Other Family History Family History: No Significant, Hypertension Social History No ALCOHOL: none Drugs: None Lives: with Family Current Problem List Problem List Problems Medical Problems: (1) AMS (altered mental status) Status: Acute (2) Leukocytosis Status: Acute Current Medications Current Medications Current Medications Piperacillin Sod/ Tazobactam Sod 3.375 gm/Sodium Chloride 50 ml @ 100 mls/hr 1X ONCE IV Last administered on 07/14/20at 21:56; Start 07/14/20 at 20:45; Stop 07/14/20 at 21:14; Status DC Vancomycin HCl 250 ml @ 250 mls/hr 1X ONCE IV Last administered on 07/15/20at 01:52; Start 07/14/20 at 20:45; Stop 07/14/20 at 21:44; Status DC Ondansetron HCl (Zofran) 4 mg PRN Q8HRS PRN IV NAUSEA/VOMITING; Start 07/14/20 at 21:15; Stop 07/15/20 at 21:14; Status DC Morphine Sulfate (Morphine Sulfate) 4 mg PRN Q2HR PRN IV PAIN; Start 07/14/20 at 21:15; Stop 07/15/20 at 21:14; Status DC Piperacillin Sod/ Tazobactam Sod (Zosyn Per Pharmacy) 1 each PRN DAILY PRN MC SEE COMMENTS; Start 07/15/20 at 09:00 Piperacillin Sod/ Tazobactam Sod 2.25 gm/Sodium Chloride 50 ml @ 100 mls/hr Q6HRS IV Last administered on 07/15/20at 09:29; Start 07/15/20 at 09:00; Stop 07/15/20 at 11:27; Status DC Sodium Chloride (Normal Saline Flush) 3 ml QSHIFT PRN IV AFTER MEDS AND BLOOD DRAWS; Start 07/15/20 at 11:30 Dextrose/Sodium Chloride 1,000 ml @ 75 mls/hr [id number] IV Last administered on 07/16/20at 14:41; Start 07/15/20 at 11:30 Ondansetron HCl (Zofran) 4 mg PRN Q4HRS PRN IV NAUSEA/VOMITING Last administered on 07/16/20at 09:08; Start 07/15/20 at 11:30 Acetaminophen (Tylenol) 650 mg PRN Q4HRS PRN PO TEMP OVER 100.4F OR MILD PAIN; Start 07/15/20 at 11:30 Al Hydroxide/Mg Hydroxide (Mylanta Plus Xs) 30 ml PRN DAILY PRN PO HEARTBURN / GAS; Start 07/15/20 at 11:30 Sodium Monofluorophosphate (Fleet Adult) 133 ml PRN DAILY PRN LA CONSTIPATION; Start 07/15/20 at 11:30 Docusate Sodium (Colace) 100 mg PRN BID PRN PO HARD STOOLS; Start 07/15/20 at 11:30 Guaifenesin (Robitussin) 200 mg PRN Q4HRS PRN PO COUGH; Start 07/15/20 at 11:30 Enoxaparin Sodium (Lovenox 30mg Syringe) 30 mg Q24H SQ Last administered on 07/16/20at 11:58; Start 07/15/20 at 12:00 Piperacillin Sod/ Tazobactam Sod 3.375 gm/Sodium Chloride 50 ml @ 100 mls/hr Q6HRS IV Last administered on 07/16/20at 11:58; Start 07/15/20 at 12:00 Acetaminophen (Tylenol) 650 mg PRN Q4HRS PRN PO TEMP OVER 100.4F OR MILD PAIN; Start 07/15/20 at 13:30; Status Cancel Aspirin (Ecotrin) 81 mg DAILYWBKFT PO Last administered on 07/16/20 08:08; Start 07/15/20 at 14:00 Ergocalciferol (Vitamin D2) 50,000 unit Fr PO Last administered on 07/16/20 08:06; Start 07/16/20 at 09:00 Ferrous Sulfate (Feosol) 325 mg DAILY PO Last administered on 07/16/20 08:08; Start 07/15/20 at 14:00 Furosemide (Lasix) 40 mg DAILY PO Last administered on 07/16/20 08:07; Start 07/15/20 at 14:00 Gabapentin (Neurontin) 1,200 mg QHS PO Last administered on 07/15/20 21:10; Start 07/15/20 at 21:00 Metoprolol Tartrate (Lopressor) 25 mg BID PO Last administered on 07/15/20at 21:11; Start 07/15/20 at 14:00 Senna/Docusate Sodium (Senna Plus) 2 tab PRN BID PRN PO CONSTIPATION; Start 07/15/20 at 13:30 Sodium Bicarbonate (Sodium Bicarbonate) 1,300 mg TID PO Last administered on 07/16/20at 14:38; Start 07/15/20 at 14:00 Aripiprazole (Abilify) 30 mg DAILY PO Last administered on 07/16/20 08:05; Start 07/15/20 at 14:00 Bupropion HCl (Wellbutrin Xl) 300 mg DAILY PO Last administered on 07/16/20 08:06; Start 07/15/20 at 14:00 Calcium/Vitamin D (Oscal D 500mg/ 200uts) 2 tab DAILY PO Last administered on 07/16/20 08:06; Start 07/15/20 at 14:00 Citalopram Hydrobromide (CeleXA) 20 mg DAILY PO Last administered on 07/16/20 08:08; Start 07/15/20 at 14:00 Levothyroxine Sodium (Synthroid) 100 mcg DAILY06 PO Last administered on 07/16/20 06:28; Start 07/16/20 at 06:00 Amylase/Lipase/ Protease (Zenpep 10,000) 3 cap TIDWMEALS PO Last administered on 1/29/21at 11:55; Start 07/15/20 at 17:00 Mirtazapine (Remeron) 30 mg QHS PO Last administered on 07/15/20at 21:10; Start 07/15/20 at 21:00 Multivitamins (Thera M Plus) 1 tab DAILY PO Last administered on 07/16/20at 08:07; Start 07/15/20 at 14:00 Pantoprazole Sodium (Protonix) 40 mg BIDAC PO Last administered on 07/16/20at 06:27; Start 07/15/20 at 16:30 Ondansetron HCl (Zofran Odt) 4 mg Q8HRS PO Last administered on 07/16/20at 14:38; Start 07/15/20 at 14:00 Non-Formulary Medication (Selenium ) 0.5 cap DAILY PO ; Start 07/16/20 at 09:00; Status UNV Potassium Chloride (Klor-Con) 40 meq 1X ONCE PO Last administered on 07/15/20at 14:14; Start 07/15/20 at 13:45; Stop 07/15/20 at 13:57; Status DC Vitamin A/Vitamin D (Vitamin A & D Ointment) 1 uziel BID TP Last administered on 07/16/20at 09:12; Start 07/15/20 at 21:00 Linezolid/Dextrose 300 ml @ 300 mls/hr Q12HR IV Last administered on 07/16/20at 10:14; Start 07/16/20 at 09:00 Potassium Chloride (Klor-Con) 40 meq 1X ONCE PO Last administered on 07/16/20at 11:24; Start 07/16/20 at 10:30; Stop 07/16/20 at 10:31; Status DC Potassium Chloride (Klor-Con) 20 meq DAILYWBKFT PO ; Start 07/17/20 at 08:00 Lactobacillus Rhamnosus (Culturelle) 1 cap BID PO ; Start 07/16/20 at 21:00 Active Scripts Active Cephalexin 250 Mg Capsule 500 Mg PO TID Metoprolol Tartrate 25 Mg Tablet 25 Mg PO BID Gabapentin (Gabapentin) 400 Mg Capsule 1,200 Mg PO QHS 30 Days Aspirin Ec (Aspirin) 81 Mg Tablet.dr 81 Mg PO DAILYWBKFT Tylenol (Acetaminophen) 325 Mg Tablet 650 Mg PO PRN Q4HRS PRN 30 Days Furosemide 40 Mg Tablet 40 Mg PO DAILY 30 Days Senna-Time S Tablet (Sennosides/Docusate Sodium) 1 Each Tablet 2 Tab PO PRN BID PRN 30 Days Reported Selenium 200 Mcg Capsule 0.5 Cap PO DAILY 30 Days Marcia Stewart 36,000 Units Capsule (Lipase/Protease/Amylase) 1 Each Capsule.dr 1 Each PO TIDAC Zofran (Ondansetron Hcl) 4 Mg Tablet 1 Tab PO Q8HRS Mirtazapine 30 Mg Tablet 1 Tab PO QHS Levothyroxine (Levothyroxine Sodium) 100 Mcg Capsule 100 Mcg PO DAILY Ferrous Sulfate 325 Mg Tablet 1 Tab PO DAILY Vitamin D2 (Ergocalciferol (Vitamin D2)) 1,250 Mcg Capsule 1,250 Mcg PO DAILY Clonazepam 1 Mg Tablet 1 Mg PO BID Wellbutrin Xl (Bupropion Hcl) 300 Mg Tab.er.24h 1 Tab PO DAILY Abilify (Aripiprazole) 30 Mg Tablet 1 Tab PO DAILY 30 Days Calcium + Vitamin D Tablet (Calcium Carbonate/Vitamin D3) 1 Each Tablet 2 Each PO DAILY Multivitamins (Multivitamin) 1 Each Tablet 1 Tab PO DAILY Sodium Bicarbonate 650 Mg Tablet 2 Tab PO TID Omeprazole 40 Mg Capsule. 40 Mg PO BID Citalopram Hbr (Citalopram Hydrobromide) 40 Mg Tablet 20 Mg PO DAILY Allergies Allergies: Coded Allergies: hydromorphone (Verified Allergy, Intermediate, Palpitations, 10/14/13) rosuvastatin (Verified Allergy, Mild, Nausea and Vomiting, 10/14/13) ROS Review of System NOT RELIABLE. SHE HAS NO COMPLAINTS Physical Exam General: Alert, Cooperative, No acute distress HEENT: Atraumatic Lungs: Clear to auscultation Heart: Regular rate Abdomen: Normal bowel sounds, Soft Extremities: No clubbing Skin: No breakdown Neuro: Normal speech Psych/Mental Status: Other (FLAT AFFECT) MUSCULOSKELETAL: No joint tenderness, No deformity, No swelling Vitals VITALS Vital Signs Date Time Temp Pulse Resp B/P (MAP) Pulse Ox O2 Delivery O2 Flow Rate FiO2 07/16/20 15:00 98.1 76 18 110/65 (80) 93 Room Air 98.1 07/16/20 08:00 97.0 Labs Labs Laboratory Tests Test 07/14/20 18:00 07/14/20 18:13 1/27/21 18:20 07/14/20 21:50 White Blood Count 18.2 x10^3/uL (4.0-11.0) Red Blood Count 2.78 x10^6/uL (3.50-5.40) Hemoglobin 8.5 g/dL (12.0-15.5) Hematocrit 27.1 % (36.0-47.0) Mean Corpuscular Volume 97 fL (79-100) Mean Corpuscular Hemoglobin 31 pg (25-35) Mean Corpuscular Hemoglobin Concent 32 g/dL (31-37) Red Cell Distribution Width 15.7 % (11.5-14.5) Platelet Count 313 x10^3/uL (140-400) Neutrophils (%) (Auto) 84 % (31-73) Lymphocytes (%) (Auto) 10 % (24-48) Monocytes (%) (Auto) 5 % (0-9) Eosinophils (%) (Auto) 1 % (0-3) Basophils (%) (Auto) 0 % (0-3) Neutrophils # (Auto) 15.4 x10^3/uL (1.8-7.7) Lymphocytes # (Auto) 1.8 x10^3/uL (1.0-4.8) Monocytes # (Auto) 0.9 x10^3/uL (0.0-1.1) Eosinophils # (Auto) 0.1 x10^3/uL (0.0-0.7) Basophils # (Auto) 0.0 x10^3/uL (0.0-0.2) Segmented Neutrophils % 79 % (35-66) Band Neutrophils % 4 % (0-9) Lymphocytes % 12 % (24-48) Monocytes % 4 % (0-10) Basophils % 1 % (0-3) Platelet Estimate Adequate (ADEQUATE) Polychromasia Present Poikilocytosis Slight Anisocytosis Slight Microcytosis Macrocytosis Slight Spherocytes Occ Ovalocytes Few Helmet Cells Present Crenated Cell Present Sodium Level 145 mmol/L (136-145) Potassium Level 3.4 mmol/L (3.5-5.1) Chloride Level 112 mmol/L (98-107) Carbon Dioxide Level 17 mmol/L (21-32) Anion Gap 16 (6-14) Blood Urea Nitrogen 20 mg/dL (7-20) Creatinine 1.7 mg/dL (0.6-1.0) Estimated GFR (Cockcroft-Gault) 29.4 BUN/Creatinine Ratio 12 (6-20) Glucose Level 102 mg/dL (70-99) Lactic Acid Level 2.6 mmol/L (0.4-2.0) 1.1 mmol/L (0.4-2.0) Calcium Level 8.4 mg/dL (8.5-10.1) Magnesium Level 1.8 mg/dL (1.8-2.4) Total Bilirubin 0.2 mg/dL (0.2-1.0) Aspartate Amino Transf (AST/SGOT) 18 U/L (15-37) Alanine Aminotransferase (ALT/SGPT) 18 U/L (14-59) Alkaline Phosphatase 101 U/L (46-116) Troponin I Quantitative < 0.017 ng/mL (0.000-0.055) < 0.017 ng/mL (0.000-0.055) YQ-Rsw-H-Type Natriuretic Peptide 26309 pg/mL (0-124) Total Protein 5.9 g/dL (6.4-8.2) Albumin 1.5 g/dL (3.4-5.0) Albumin/Globulin Ratio 0.3 (1.0-1.7) Procalcitonin 0.40 ng/mL (0.00-0.10) Urine Collection Type U cath Urine Color Yellow Urine Clarity Turbid Urine pH 5.5 (<5.0-8.0) Urine Specific [place] 1.015 (1.000-1.030) Urine Protein 30 mg/dL (NEG-TRACE) Urine Glucose (UA) Negative mg/dL (NEG) Urine Ketones (Stick) Negative mg/dL (NEG) Urine Blood Negative (NEG) Urine Nitrite Negative (NEG) Urine Bilirubin Negative (NEG) Urine Urobilinogen Dipstick 0.2 mg/dL (0.2 mg/dL) Urine Leukocyte Esterase Negative (NEG) Urine RBC 0 /HPF (0-2) Urine WBC Tntc /HPF (0-4) Urine Amorphous Sediment Present /HPF Urine Bacteria Moderate /HPF (0-FEW) Urine Hyaline Casts Few /HPF Urine Granular Casts Occasional /HPF Urine Mucus Slight /LPF Urine Yeast Present /HPF Urine Opiates Screen Neg (NEG) Urine Methadone Screen Neg (NEG) Urine Barbiturates Neg (NEG) Urine Phencyclidine Screen Neg (NEG) Urine Amphetamine/Methamphetamine Neg (NEG) Urine Benzodiazepines Screen Neg (NEG) Urine Cocaine Screen Neg (NEG) Urine Cannabinoids Screen Neg (NEG) Urine Ethyl Alcohol Neg (NEG) Influenza Type A Antigen Negative (NEGATIVE) Influenza Type B Antigen Negative (NEGATIVE) Test 07/15/20 00:01 07/15/20 07:55 07/16/20 09:45 Troponin I Quantitative < 0.017 ng/mL (0.000-0.055) White Blood Count 12.6 x10^3/uL (4.0-11.0) 8.0 x10^3/uL (4.0-11.0) Red Blood Count 2.64 x10^6/uL (3.50-5.40) 3.00 x10^6/uL (3.50-5.40) Hemoglobin 8.2 g/dL (12.0-15.5) 9.2 g/dL (12.0-15.5) Hematocrit 25.7 % (36.0-47.0) 29.1 % (36.0-47.0) Mean Corpuscular Volume 98 fL (79-100) 97 fL (79-100) Mean Corpuscular Hemoglobin 31 pg (25-35) 31 pg (25-35) Mean Corpuscular Hemoglobin Concent 32 g/dL (31-37) 32 g/dL (31-37) Red Cell Distribution Width 15.5 % (11.5-14.5) 15.1 % (11.5-14.5) Platelet Count 333 x10^3/uL (140-400) 263 x10^3/uL (140-400) Neutrophils (%) (Auto) 85 % (31-73) 76 % (31-73) Lymphocytes (%) (Auto) 9 % (24-48) 15 % (24-48) Monocytes (%) (Auto) 5 % (0-9) 7 % (0-9) Eosinophils (%) (Auto) 1 % (0-3) 2 % (0-3) Basophils (%) (Auto) 0 % (0-3) 0 % (0-3) Neutrophils # (Auto) 10.6 x10^3/uL (1.8-7.7) 6.1 x10^3/uL (1.8-7.7) Lymphocytes # (Auto) 1.1 x10^3/uL (1.0-4.8) 1.2 x10^3/uL (1.0-4.8) Monocytes # (Auto) 0.6 x10^3/uL (0.0-1.1) 0.5 x10^3/uL (0.0-1.1) Eosinophils # (Auto) 0.2 x10^3/uL (0.0-0.7) 0.2 x10^3/uL (0.0-0.7) Basophils # (Auto) 0.1 x10^3/uL (0.0-0.2) 0.0 x10^3/uL (0.0-0.2) Sodium Level 149 mmol/L (136-145) 143 mmol/L (136-145) Potassium Level 3.2 mmol/L (3.5-5.1) 3.5 mmol/L (3.5-5.1) Chloride Level 116 mmol/L (98-107) 112 mmol/L (98-107) Carbon Dioxide Level 21 mmol/L (21-32) 21 mmol/L (21-32) Anion Gap 12 (6-14) 10 (6-14) Blood Urea Nitrogen 19 mg/dL (7-20) 19 mg/dL (7-20) Creatinine 1.5 mg/dL (0.6-1.0) 1.5 mg/dL (0.6-1.0) Estimated GFR (Cockcroft-Gault) 33.9 33.9 Glucose Level 65 mg/dL (70-99) 125 mg/dL (70-99) Calcium Level 8.0 mg/dL (8.5-10.1) 7.6 mg/dL (8.5-10.1) BUN/Creatinine Ratio 13 (6-20) Total Bilirubin 0.2 mg/dL (0.2-1.0) Aspartate Amino Transf (AST/SGOT) 19 U/L (15-37) Alanine Aminotransferase (ALT/SGPT) 18 U/L (14-59) Alkaline Phosphatase 90 U/L (46-116) Total Protein 5.6 g/dL (6.4-8.2) Albumin 1.2 g/dL (3.4-5.0) Albumin/Globulin Ratio 0.3 (1.0-1.7) Laboratory Tests Test 07/16/20 09:45 White Blood Count 8.0 x10^3/uL (4.0-11.0) Red Blood Count 3.00 x10^6/uL (3.50-5.40) Hemoglobin 9.2 g/dL (12.0-15.5) Hematocrit 29.1 % (36.0-47.0) Mean Corpuscular Volume 97 fL (79-100) Mean Corpuscular Hemoglobin 31 pg (25-35) Mean Corpuscular Hemoglobin Concent 32 g/dL (31-37) Red Cell Distribution Width 15.1 % (11.5-14.5) Platelet Count 263 x10^3/uL (140-400) Neutrophils (%) (Auto) 76 % (31-73) Lymphocytes (%) (Auto) 15 % (24-48) Monocytes (%) (Auto) 7 % (0-9) Eosinophils (%) (Auto) 2 % (0-3) Basophils (%) (Auto) 0 % (0-3) Neutrophils # (Auto) 6.1 x10^3/uL (1.8-7.7) Lymphocytes # (Auto) 1.2 x10^3/uL (1.0-4.8) Monocytes # (Auto) 0.5 x10^3/uL (0.0-1.1) Eosinophils # (Auto) 0.2 x10^3/uL (0.0-0.7) Basophils # (Auto) 0.0 x10^3/uL (0.0-0.2) Sodium Level 143 mmol/L (136-145) Potassium Level 3.5 mmol/L (3.5-5.1) Chloride Level 112 mmol/L (98-107) Carbon Dioxide Level 21 mmol/L (21-32) Anion Gap 10 (6-14) Blood Urea Nitrogen 19 mg/dL (7-20) Creatinine 1.5 mg/dL (0.6-1.0) Estimated GFR (Cockcroft-Gault) 33.9 BUN/Creatinine Ratio 13 (6-20) Glucose Level 125 mg/dL (70-99) Calcium Level 7.6 mg/dL (8.5-10.1) Total Bilirubin 0.2 mg/dL (0.2-1.0) Aspartate Amino Transf (AST/SGOT) 19 U/L (15-37) Alanine Aminotransferase (ALT/SGPT) 18 U/L (14-59) Alkaline Phosphatase 90 U/L (46-116) Total Protein 5.6 g/dL (6.4-8.2) Albumin 1.2 g/dL (3.4-5.0) Albumin/Globulin Ratio 0.3 (1.0-1.7) Assessment/Plan Assessment/Plan IMP CKD STAGE 3B-CR STABLE AND AT BASELINE LEUCOCYTOSIS AND FEVER PROB LLL PNEUMONIA MILD HYPERNATREMIA HYPOKALEMIA HX HTN PLAN HYDRATION REPLACE K ANTIBIOTICS PULM AND ID EVAL WILL FOLLOW MARGARET MOHAN MD Jul 16, 2020 16:29
[2020-07-16 19:00] VITALS: BP 125/72
[2020-07-16] MEDS: GABAPENTIN 400 MG CAPSULE. PO SCH (21:18)
[2020-07-16] MEDS: MIRTAZAPINE 15 MG TABLET PO SCH (21:19)
[2020-07-16] MEDS: LACTOBACILLUS RHAMNOSUS GG 1 CAPSULE. PO SCH (21:19)
[2020-07-16 23:00] VITALS: BP 114/70
[2020-07-17] MEDS: PIPERACILLIN/TAZOBACTAM 3.375 GM in IV NORMAL SALINE 50ML 50 ML IV SCH ×4 (00:31→17:52)
[2020-07-17 03:00] VITALS: BP 115/72
[2020-07-17] MEDS: ONDANSETRON ODT 4 MG TAB.RAPDIS. PO SCH ×3 (06:00→22:29)
[2020-07-17] MEDS: LEVOTHYROXINE 100 MCG TABLET PO SCH (06:28)
[2020-07-17] MEDS: PANTOPRAZOLE 40 MG TABLET.DR. PO SCH ×2 (06:28→17:53)
[2020-07-17 07:00] VITALS: BP 103/60
--- NOTE | 2020-07-17 07:39 | PDOC ---
Infectious Disease Note Subjective Subjective Feeling well. No F/C/S/N/D/SOA/rash or pain ROS ROS o/w neg Vital Sign Vital Signs Vital Signs Date Time Temp Pulse Resp B/P (MAP) Pulse Ox O2 Delivery O2 Flow Rate FiO2 07/17/20 03:00 97.4 59 115/72 (86) 98 Room Air 97.4 07/16/20 23:00 18 07/16/20 20:00 97.0 Physical Exam PHYSICAL EXAM GENERAL: Alert female, not in any distress. eating HEENT: Both pupils are round and reacting. No conjunctival lesion, no lesion in the mouth. NECK: Supple, no JVP, no lymphadenopathy. LUNGS: Clear to auscultation and percussion. HEART: S1, S2 regular. ABDOMEN: Soft, nontender, no organomegaly. PEG clean EXTREMITIES: No edema, cyanosis. Dressing over clean scab LLE SKIN: Unremarkable. NEUROLOGIC: The patient is alert, awake and appropriate. Does have poor memory, but she is able to move all the extremities. Labs Lab Laboratory Tests Test 07/16/20 09:45 White Blood Count 8.0 x10^3/uL (4.0-11.0) Red Blood Count 3.00 x10^6/uL (3.50-5.40) Hemoglobin 9.2 g/dL (12.0-15.5) Hematocrit 29.1 % (36.0-47.0) Mean Corpuscular Volume 97 fL (79-100) Mean Corpuscular Hemoglobin 31 pg (25-35) Mean Corpuscular Hemoglobin Concent 32 g/dL (31-37) Red Cell Distribution Width 15.1 % (11.5-14.5) Platelet Count 263 x10^3/uL (140-400) Neutrophils (%) (Auto) 76 % (31-73) Lymphocytes (%) (Auto) 15 % (24-48) Monocytes (%) (Auto) 7 % (0-9) Eosinophils (%) (Auto) 2 % (0-3) Basophils (%) (Auto) 0 % (0-3) Neutrophils # (Auto) 6.1 x10^3/uL (1.8-7.7) Lymphocytes # (Auto) 1.2 x10^3/uL (1.0-4.8) Monocytes # (Auto) 0.5 x10^3/uL (0.0-1.1) Eosinophils # (Auto) 0.2 x10^3/uL (0.0-0.7) Basophils # (Auto) 0.0 x10^3/uL (0.0-0.2) Sodium Level 143 mmol/L (136-145) Potassium Level 3.5 mmol/L (3.5-5.1) Chloride Level 112 mmol/L (98-107) Carbon Dioxide Level 21 mmol/L (21-32) Anion Gap 10 (6-14) Blood Urea Nitrogen 19 mg/dL (7-20) Creatinine 1.5 mg/dL (0.6-1.0) Estimated GFR (Cockcroft-Gault) 33.9 BUN/Creatinine Ratio 13 (6-20) Glucose Level 125 mg/dL (70-99) Calcium Level 7.6 mg/dL (8.5-10.1) Total Bilirubin 0.2 mg/dL (0.2-1.0) Aspartate Amino Transf (AST/SGOT) 19 U/L (15-37) Alanine Aminotransferase (ALT/SGPT) 18 U/L (14-59) Alkaline Phosphatase 90 U/L (46-116) Total Protein 5.6 g/dL (6.4-8.2) Albumin 1.2 g/dL (3.4-5.0) Albumin/Globulin Ratio 0.3 (1.0-1.7) Micro Microbiology 07/14/20 Blood Culture - Preliminary, Resulted NO GROWTH AFTER 2 DAYS Objective Assessment 1. Fever - better. 1/4 bacteremia 2. Leukocytosis - better 3. Pulmonary infiltrate with a tree-in-bud opacity as well as a possible cavitation. 4. Abnormal urinalysis, although no other urinary symptoms - CALB 5. Debility and self-care problem. 6. Suspected mild dementia. Plan Plan of Care Continue Zosyn/Zyvox, supportive care and we will talk to the Pulmonary for possible bronchoscopy and culture for bacterial and AFB stain and culture. Dapto with + BC cont Zyvox for lung. Avoid Vanc with NIC. BMP Ck in am DEVAN WISE MD Jul 17, 2020 07:39
[2020-07-17] MEDS ORDERED: POTASSIUM CHLORIDE 20 MEQ TABLET.ER. PO SCH (08:00)
[2020-07-17] MEDS ORDERED: DAPTOmycin (GENERIC) IVPB 350 MG in IV NORMAL SALINE 50ML 50 ML IV SCH (10:00)
[2020-07-17] MEDS: IV DEXTROSE 5 %-0.45 % NACL 1,000 ML IV SCH ×2 (10:14→22:25)
[2020-07-17 10:15] LABS: ALBUMIN 1.2 g/dL (3.4-5.0); ALBUMIN/GLOBULIN RATIO 0.3 (1.0-1.7); CALCIUM 7.7 mg/dL (8.5-10.1); CREATININE 1.5 mg/dL (0.6-1.0); GFR 33.9; PHOSPHORUS 2.3 mg/dL (2.6-4.7); POTASSIUM 3.1 mmol/L (3.5-5.1); TOTAL BILIRUBIN 0.1 mg/dL (0.2-1.0); TOTAL PROTEIN 5.1 g/dL (6.4-8.2)
[2020-07-17] MEDS: FUROSEMIDE 40 MG TABLET. PO SCH (10:16)
[2020-07-17] MEDS: buPROPion XL 150 MG TAB.ER.24H. PO SCH (10:16)
[2020-07-17] MEDS: SODIUM BICARBONATE 650 MG TABLET. PO SCH ×3 (10:17→22:30)
[2020-07-17] MEDS: LACTOBACILLUS RHAMNOSUS GG 1 CAPSULE. PO SCH ×2 (10:17→22:29)
[2020-07-17] MEDS: FERROUS SULFATE 325 MG TABLET. PO SCH (10:17)
[2020-07-17] MEDS: ASPIRIN ENTERIC COATED 81 MG TABLET.DR. PO SCH (10:17)
[2020-07-17] MEDS: MULTIVITAMIN with MINERAL TABLET. PO SCH (10:17)
[2020-07-17] MEDS: CALCIUM CARB/VIT D3 500/200 TABLET. PO SCH (10:18)
[2020-07-17] MEDS: METOPROLOL TART IMMED RELEASE 25 MG TABLET. PO SCH ×2 (10:18→22:29)
[2020-07-17] MEDS: ARIPiprazole 5 MG TABLET PO SCH (10:18)
[2020-07-17] MEDS: LIPASE/PROTEAS/AMYLAS 10/32/42 CAPSULE.DR. PO SCH ×3 (10:19→17:53)
[2020-07-17] MEDS: CITALOPRAM 20 MG TABLET. PO SCH (10:19)
[2020-07-17] MEDS: VITS A & D/LANOLIN TOPICAL OINTMENT 42GM TUBE. TP SCH ×2 (10:21→21:00)
--- NOTE | 2020-07-17 10:39 | PDOC ---
PROGRESS NOTES Date of Service: DATE: 07/17/20 TIME: 10:38 Chief Complaint Chief Complaint VTE Prophylaxis Ordered VTE Prophylaxis Devices: Contraindicated VTE Pharmacological Prophylaxi: Yes Assessment/Plan Assessment/Plan impression 1. acute metabolic encephalopathy, with altered mentation, new, already improving 2. hypoxic respiratory failure, improved CONSULT PULMONARY re bronchoscopy Plan for bronchoscopy on Sunday, hold Lovenox Sunday night CT of the chest without contrast. Consolidated infiltrate with pleural effusion in the left lower lobe with scattered patchy nodular, tree-in-bud pattern opacities as well as patchy ground glass nodules seen in both lungs. 07-15 3. sepsis, pneumonia, possible gram negative, ASPIRATION TYPE blood cultures, pulmonary consult, emperic iv zosyn 4. recent Septic shock, likely source was pneumonia and a component of volume depletion 5.. 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 Severe protein-calorie malnutrition. 7. No significant tobacco history. 8, schizotypical behavior, on meds, , depression, seems at baseline 9. klebsiella UTI, improving 10. moderate to severe concentric left ventricular hypertrophy. 11. pressure wounds, sacral, leg RIGHT, suspect PVD wound care nurse consult, emperic iv antibiotics Arterial dopplers both legs today 12. Cerebral atrophy. No acute intracranial abnormality evident. ON ct head 07-14 13. dvt prophylaxis, sq lovenox 14. electrolyte imbalance nephrology consulted, hypotonic fluids 28 min pt exam, chart review, > 50% of time spent with exam, chart review, pt care coordination 07-16 more alert, ct c/w consolidated lung infiltrate, now on iv zosyn, zyvox 07-17 ALERT, EATING BREAKFAST IN BED CONT IV ANTIBIOTICS D/W RN, Justifications for Admission Other Justification sepsis with pneumonia History of Present Illness History of Present Illness Identification/Chief Complaint Chief Complaint presented the ED 07-14 from rehab [facility] a [place] [facility] to be evaluated for sepsis and altered mental status. Per EMS report which was obtained from the [place] [facility] staff patient was discharged from this facility on July 05, 2020 after having pneumonia. She was treated with antibiotics. 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 No acute intracranial abnormality evident. CONSULTS ID, PULM, NEPHROLOGY Past Medical History Past Medical History Past Medical History Past Medical History Past Medical History: Anxiety, Depression, GERD, Hypertension, Hypothyroid, Renal Disease Additional Past Medical Histor: bowel obstruction, CKD, DYSPHAGIA Past Surgical History: Cholecystectomy, Colectomy, Gastric Bypass, Hysterectomy, Tonsillectomy Additional Past Surgical Histo: COLON PERF REPAIN. ADHEASION REPAIR, Smoking Status: Never Smoker Alcohol Use: Rarely Drug Use: None FHX HTN Cardiovascular: HTN Pulmonary: No pertinent hx CENTRAL NERVOUS SYSTEM: Other GI: GERD, Other Heme/Onc: Anemia NOS Hepatobiliary: No pertinent hx Psych: Anxiety, Depression Musculoskeletal: Osteoarthritis, Other Rheumatologic: No pertinent hx Infectious disease: No pertinent hx Renal/: Chronic renal insuff Endocrine: Hypothyroidism Past Surgical History Past Surgical History: Cholecystectomy, Colon Resection, Other Family History Family History: No Significant, Hypertension Social History Smoke: No ALCOHOL: none Drugs: None Current Problem List Problem List Problems Medical Problems: (1) AMS (altered mental status) Status: Acute (2) Leukocytosis Status: Acute Vitals Vitals Vital Signs Date Time Temp Pulse Resp B/P (MAP) Pulse Ox O2 Delivery O2 Flow Rate FiO2 07/17/20 10:18 60 103/60 07/17/20 07:00 97.9 17 97 Room Air 97.9 07/16/20 20:00 97.0 Physical Exam Physical Exam GENERAL: Alert female, not in any distress. eating HEENT: Both pupils are round and reacting. No conjunctival lesion, no lesion in the mouth. NECK: Supple, no JVP, no lymphadenopathy. LUNGS: Clear to auscultation and percussion. HEART: S1, S2 regular. ABDOMEN: Soft, nontender, no organomegaly. PEG clean EXTREMITIES: No edema, cyanosis. Dressing over clean scab LLE SKIN: Unremarkable. NEUROLOGIC: The patient is alert, awake and appropriate. Does have poor memory, but she is able to move all the extremities. General: Alert, Cooperative, No acute distress Heart: Regular rate Lungs: Clear, Crackles Abdomen: Normal bowel sounds, Soft Extremities: No clubbing Skin: No breakdown Labs LABS Laboratory Tests Test 07/17/20 09:20 Sodium Level 143 mmol/L (136-145) Potassium Level 3.1 mmol/L (3.5-5.1) Chloride Level 110 mmol/L (98-107) Carbon Dioxide Level 20 mmol/L (21-32) Anion Gap 13 (6-14) Blood Urea Nitrogen 17 mg/dL (7-20) Creatinine 1.5 mg/dL (0.6-1.0) Estimated GFR (Cockcroft-Gault) 33.9 BUN/Creatinine Ratio 11 (6-20) Glucose Level 98 mg/dL (70-99) Calcium Level 7.7 mg/dL (8.5-10.1) Phosphorus Level 2.3 mg/dL (2.6-4.7) Total Bilirubin 0.1 mg/dL (0.2-1.0) Aspartate Amino Transf (AST/SGOT) 13 U/L (15-37) Alanine Aminotransferase (ALT/SGPT) 21 U/L (14-59) Alkaline Phosphatase 87 U/L (46-116) Total Protein 5.1 g/dL (6.4-8.2) Albumin 1.2 g/dL (3.4-5.0) Albumin/Globulin Ratio 0.3 (1.0-1.7) Assessment and Plan Assessmemt and Plan Problems Medical Problems: (1) AMS (altered mental status) Status: Acute (2) Leukocytosis Status: Acute Comment Review of Relevant I have reviewed the following items isreal (where applicable) has been applied. Labs Laboratory Tests Test 07/16/20 09:45 07/17/20 09:20 White Blood Count 8.0 x10^3/uL (4.0-11.0) Red Blood Count 3.00 x10^6/uL (3.50-5.40) Hemoglobin 9.2 g/dL (12.0-15.5) Hematocrit 29.1 % (36.0-47.0) Mean Corpuscular Volume 97 fL (79-100) Mean Corpuscular Hemoglobin 31 pg (25-35) Mean Corpuscular Hemoglobin Concent 32 g/dL (31-37) Red Cell Distribution Width 15.1 % (11.5-14.5) Platelet Count 263 x10^3/uL (140-400) Neutrophils (%) (Auto) 76 % (31-73) Lymphocytes (%) (Auto) 15 % (24-48) Monocytes (%) (Auto) 7 % (0-9) Eosinophils (%) (Auto) 2 % (0-3) Basophils (%) (Auto) 0 % (0-3) Neutrophils # (Auto) 6.1 x10^3/uL (1.8-7.7) Lymphocytes # (Auto) 1.2 x10^3/uL (1.0-4.8) Monocytes # (Auto) 0.5 x10^3/uL (0.0-1.1) Eosinophils # (Auto) 0.2 x10^3/uL (0.0-0.7) Basophils # (Auto) 0.0 x10^3/uL (0.0-0.2) Sodium Level 143 mmol/L (136-145) 143 mmol/L (136-145) Potassium Level 3.5 mmol/L (3.5-5.1) 3.1 mmol/L (3.5-5.1) Chloride Level 112 mmol/L (98-107) 110 mmol/L (98-107) Carbon Dioxide Level 21 mmol/L (21-32) 20 mmol/L (21-32) Anion Gap 10 (6-14) 13 (6-14) Blood Urea Nitrogen 19 mg/dL (7-20) 17 mg/dL (7-20) Creatinine 1.5 mg/dL (0.6-1.0) 1.5 mg/dL (0.6-1.0) Estimated GFR (Cockcroft-Gault) 33.9 33.9 BUN/Creatinine Ratio 13 (6-20) 11 (6-20) Glucose Level 125 mg/dL (70-99) 98 mg/dL (70-99) Calcium Level 7.6 mg/dL (8.5-10.1) 7.7 mg/dL (8.5-10.1) Total Bilirubin 0.2 mg/dL (0.2-1.0) 0.1 mg/dL (0.2-1.0) Aspartate Amino Transf (AST/SGOT) 19 U/L (15-37) 13 U/L (15-37) Alanine Aminotransferase (ALT/SGPT) 18 U/L (14-59) 21 U/L (14-59) Alkaline Phosphatase 90 U/L (46-116) 87 U/L (46-116) Total Protein 5.6 g/dL (6.4-8.2) 5.1 g/dL (6.4-8.2) Albumin 1.2 g/dL (3.4-5.0) 1.2 g/dL (3.4-5.0) Albumin/Globulin Ratio 0.3 (1.0-1.7) 0.3 (1.0-1.7) Phosphorus Level 2.3 mg/dL (2.6-4.7) Laboratory Tests Test 07/17/20 09:20 Sodium Level 143 mmol/L (136-145) Potassium Level 3.1 mmol/L (3.5-5.1) Chloride Level 110 mmol/L (98-107) Carbon Dioxide Level 20 mmol/L (21-32) Anion Gap 13 (6-14) Blood Urea Nitrogen 17 mg/dL (7-20) Creatinine 1.5 mg/dL (0.6-1.0) Estimated GFR (Cockcroft-Gault) 33.9 BUN/Creatinine Ratio 11 (6-20) Glucose Level 98 mg/dL (70-99) Calcium Level 7.7 mg/dL (8.5-10.1) Phosphorus Level 2.3 mg/dL (2.6-4.7) Total Bilirubin 0.1 mg/dL (0.2-1.0) Aspartate Amino Transf (AST/SGOT) 13 U/L (15-37) Alanine Aminotransferase (ALT/SGPT) 21 U/L (14-59) Alkaline Phosphatase 87 U/L (46-116) Total Protein 5.1 g/dL (6.4-8.2) Albumin 1.2 g/dL (3.4-5.0) Albumin/Globulin Ratio 0.3 (1.0-1.7) Microbiology 07/14/20 Blood Culture - Preliminary, Resulted NO GROWTH AFTER 2 DAYS 07/14/20 Urine Culture - Final, Complete Medications Current Medications Piperacillin Sod/ Tazobactam Sod 3.375 gm/Sodium Chloride 50 ml @ 100 mls/hr 1X ONCE IV Last administered on 07/14/20at 21:56; Start 07/14/20 at 20:45; Stop 07/14/20 at 21:14; Status DC Vancomycin HCl 250 ml @ 250 mls/hr 1X ONCE IV Last administered on 07/15/20at 01:52; Start 07/14/20 at 20:45; Stop 07/14/20 at 21:44; Status DC Ondansetron HCl (Zofran) 4 mg PRN Q8HRS PRN IV NAUSEA/VOMITING; Start 07/14/20 at 21:15; Stop 07/15/20 at 21:14; Status DC Morphine Sulfate (Morphine Sulfate) 4 mg PRN Q2HR PRN IV PAIN; Start 07/14/20 at 21:15; Stop 07/15/20 at 21:14; Status DC Piperacillin Sod/ Tazobactam Sod (Zosyn Per Pharmacy) 1 each PRN DAILY PRN MC SEE COMMENTS; Start 07/15/20 at 09:00 Piperacillin Sod/ Tazobactam Sod 2.25 gm/Sodium Chloride 50 ml @ 100 mls/hr Q6HRS IV Last administered on 07/15/20at 09:29; Start 07/15/20 at 09:00; Stop 07/15/20 at 11:27; Status DC Sodium Chloride (Normal Saline Flush) 3 ml QSHIFT PRN IV AFTER MEDS AND BLOOD DRAWS; Start 07/15/20 at 11:30 Dextrose/Sodium Chloride 1,000 ml @ 75 mls/hr [id number] IV Last administered on 07/17/20at 10:14; Start 07/15/20 at 11:30 Ondansetron HCl (Zofran) 4 mg PRN Q4HRS PRN IV NAUSEA/VOMITING Last administered on 07/16/20at 09:08; Start 07/15/20 at 11:30 Acetaminophen (Tylenol) 650 mg PRN Q4HRS PRN PO TEMP OVER 100.4F OR MILD PAIN; Start 07/15/20 at 11:30 Al Hydroxide/Mg Hydroxide (Mylanta Plus Xs) 30 ml PRN DAILY PRN PO HEARTBURN / GAS; Start 07/15/20 at 11:30 Sodium Monofluorophosphate (Fleet Adult) 133 ml PRN DAILY PRN IA CONSTIPATION; Start 07/15/20 at 11:30 Docusate Sodium (Colace) 100 mg PRN BID PRN PO HARD STOOLS; Start 07/15/20 at 11:30 Guaifenesin (Robitussin) 200 mg PRN Q4HRS PRN PO COUGH; Start 07/15/20 at 11:30 Enoxaparin Sodium (Lovenox 30mg Syringe) 30 mg Q24H SQ Last administered on 07/16/20at 11:58; Start 07/15/20 at 12:00 Piperacillin Sod/ Tazobactam Sod 3.375 gm/Sodium Chloride 50 ml @ 100 mls/hr Q6HRS IV Last administered on 07/17/20at 06:28; Start 07/15/20 at 12:00 Acetaminophen (Tylenol) 650 mg PRN Q4HRS PRN PO TEMP OVER 100.4F OR MILD PAIN; Start 07/15/20 at 13:30; Status Cancel Aspirin (Ecotrin) 81 mg DAILYWBKFT PO Last administered on 07/17/20at 10:17; Start 07/15/20 at 14:00 Ergocalciferol (Vitamin D2) 50,000 unit Fr PO Last administered on 07/16/20at 08:06; Start 07/16/20 at 09:00 Ferrous Sulfate (Feosol) 325 mg DAILY PO Last administered on 07/17/20at 10:17; Start 07/15/20 at 14:00 Furosemide (Lasix) 40 mg DAILY PO Last administered on 07/17/20at 10:16; Start 07/15/20 at 14:00 Gabapentin (Neurontin) 1,200 mg QHS PO Last administered on 07/16/20at 21:18; Start 07/15/20 at 21:00 Metoprolol Tartrate (Lopressor) 25 mg BID PO Last administered on 07/17/20at 10:18; Start 07/15/20 at 14:00 Senna/Docusate Sodium (Senna Plus) 2 tab PRN BID PRN PO CONSTIPATION; Start 07/15/20 at 13:30 Sodium Bicarbonate (Sodium Bicarbonate) 1,300 mg TID PO Last administered on 07/17/20at 10:17; Start 07/15/20 at 14:00 Aripiprazole (Abilify) 30 mg DAILY PO Last administered on 1/30/21at 10:18; Start 07/15/20 at 14:00 Bupropion HCl (Wellbutrin Xl) 300 mg DAILY PO Last administered on 07/17/20at 10:16; Start 07/15/20 at 14:00 Calcium/Vitamin D (Oscal D 500mg/ 200uts) 2 tab DAILY PO Last administered on 07/17/20at 10:18; Start 07/15/20 at 14:00 Citalopram Hydrobromide (CeleXA) 20 mg DAILY PO Last administered on 07/17/20at 10:19; Start 07/15/20 at 14:00 Levothyroxine Sodium (Synthroid) 100 mcg DAILY06 PO Last administered on 07/17/20at 06:28; Start 07/16/20 at 06:00 Amylase/Lipase/ Protease (Zenpep 10,000) 3 cap TIDWMEALS PO Last administered on 07/17/20at 10:19; Start 07/15/20 at 17:00 Mirtazapine (Remeron) 30 mg QHS PO Last administered on 07/16/20at 21:19; Start 07/15/20 at 21:00 Multivitamins (Thera M Plus) 1 tab DAILY PO Last administered on 07/17/20at 10:17; Start 07/15/20 at 14:00 Pantoprazole Sodium (Protonix) 40 mg BIDAC PO Last administered on 07/17/20at 06:28; Start 07/15/20 at 16:30 Ondansetron HCl (Zofran Odt) 4 mg Q8HRS PO Last administered on 07/16/20at 14:38; Start 07/15/20 at 14:00 Non-Formulary Medication (Selenium ) 0.5 cap DAILY PO ; Start 07/16/20 at 09:00; Status UNV Potassium Chloride (Klor-Con) 40 meq 1X ONCE PO Last administered on 07/15/20at 14:14; Start 07/15/20 at 13:45; Stop 07/15/20 at 13:57; Status DC Vitamin A/Vitamin D (Vitamin A & D Ointment) 1 uziel BID TP Last administered on 07/17/20at 10:21; Start 07/15/20 at 21:00 Linezolid/Dextrose 300 ml @ 300 mls/hr Q12HR IV Last administered on 07/17/20at 10:09; Start 07/16/20 at 09:00 Potassium Chloride (Klor-Con) 40 meq 1X ONCE PO Last administered on 07/16/20at 11:24; Start 07/16/20 at 10:30; Stop 07/16/20 at 10:31; Status DC Potassium Chloride (Klor-Con) 20 meq DAILYWBKFT PO Last administered on 07/17/20at 10:19; Start 07/17/20 at 08:00 Lactobacillus Rhamnosus (Culturelle) 1 cap BID PO Last administered on 07/17/20at 10:17; Start 07/16/20 at 21:00 Daptomycin 350 mg/ Sodium Chloride 50 ml @ 100 mls/hr Q48H IV ; Start 07/17/20 at 10:00 Active Scripts Active Cephalexin 250 Mg Capsule 500 Mg PO TID Metoprolol Tartrate 25 Mg Tablet 25 Mg PO BID Gabapentin (Gabapentin) 400 Mg Capsule 1,200 Mg PO QHS 30 Days Aspirin Ec (Aspirin) 81 Mg Tablet. 81 Mg PO DAILYWBKFT Tylenol (Acetaminophen) 325 Mg Tablet 650 Mg PO PRN Q4HRS PRN 30 Days Furosemide 40 Mg Tablet 40 Mg PO DAILY 30 Days Senna-Time S Tablet (Sennosides/Docusate Sodium) 1 Each Tablet 2 Tab PO PRN BID PRN 30 Days Reported Selenium 200 Mcg Capsule 0.5 Cap PO DAILY 30 Days Kathyon 36,000 Units Capsule (Lipase/Protease/Amylase) 1 Each Capsule. 1 Each PO TIDAC Zofran (Ondansetron Hcl) 4 Mg Tablet 1 Tab PO Q8HRS Mirtazapine 30 Mg Tablet 1 Tab PO QHS Levothyroxine (Levothyroxine Sodium) 100 Mcg Capsule 100 Mcg PO DAILY Ferrous Sulfate 325 Mg Tablet 1 Tab PO DAILY Vitamin D2 (Ergocalciferol (Vitamin D2)) 1,250 Mcg Capsule 1,250 Mcg PO DAILY Clonazepam 1 Mg Tablet 1 Mg PO BID Wellbutrin Xl (Bupropion Hcl) 300 Mg Tab.er.24h 1 Tab PO DAILY Abilify (Aripiprazole) 30 Mg Tablet 1 Tab PO DAILY 30 Days Calcium + Vitamin D Tablet (Calcium Carbonate/Vitamin D3) 1 Each Tablet 2 Each PO DAILY Multivitamins (Multivitamin) 1 Each Tablet 1 Tab PO DAILY Sodium Bicarbonate 650 Mg Tablet 2 Tab PO TID Omeprazole 40 Mg Capsule.dr 40 Mg PO BID Citalopram Hbr (Citalopram Hydrobromide) 40 Mg Tablet 20 Mg PO DAILY Vitals/I & O Vital Sign - Last 24 Hours 07/16/20 07/16/20 07/16/20 07/16/20 11:00 15:00 19:00 20:00 Temp 98.0 98.1 97.9 98.0 98.1 97.9 Pulse 60 76 72 Resp 16 18 18 B/P (MAP) 122/68 (86) 110/65 (80) 125/72 (89) Pulse Ox 91 93 98 O2 Delivery Room Air Room Air Room Air Room Air O2 Flow Rate 97.0 07/16/20 07/16/20 07/17/20 07/17/20 21:19 23:00 03:00 07:00 Temp 97.5 97.4 97.9 97.5 97.4 97.9 Pulse 72 65 59 60 Resp 18 17 B/P (MAP) 125/72 114/70 (85) 115/72 (86) 103/60 (74) Pulse Ox 98 98 97 O2 Delivery Room Air Room Air Room Air 07/17/20 10:18 Pulse 60 B/P (MAP) 103/60 Intake and Output 07/16/20 07/16/20 07/17/20 15:00 23:00 07:00 Intake Total 400 ml Balance 400 ml Nutrition Consultation Dietary Evaluation: Recommendations by RD: Dietary education by RD, Increase Calorie Intake, Protein supplementation Comments: rec continue regular diet magic cup bid mvi REC vit c Expected Outcomes/Goals: to meet >75% est nutr needs Interpretation of weight loss: >1-2% in 1 week Malnutrition Findings: Food and Nutrition Intake (Mod: <75% est energy req 7days Body Fat Depletion (Non Severe: Mod to Severe Weight Status: Underweight Justicifation of Admission Dx: Justifications for Admission: Justification of Admission Dx: Yes DANIELE FRANKS MD Jul 17, 2020 10:39
[2020-07-17 11:00] VITALS: BP 129/66
--- NOTE | 2020-07-17 11:10 | PDOC ---
PULMONARY PROGRESS NOTES DATE: 07/17/20 TIME: 11:09 Subjective Patient remains on room air Denies any shortness of breath, or cough Afebrile overnight Vitals Vital Signs Date Time Temp Pulse Resp B/P (MAP) Pulse Ox O2 Delivery O2 Flow Rate FiO2 07/17/20 10:18 60 103/60 07/17/20 07:00 97.9 17 97 Room Air 97.9 07/16/20 20:00 97.0 ROS: No Nausea, No Chest Pain, No Abdominal Pain, No Increase Cough General: Alert HEENT: Other Lungs: Clear, Crackles Cardiovascular: S1, S2 Abdomen: Soft Extremities: No Edema Labs Laboratory Tests Test 07/16/20 09:45 07/17/20 09:20 White Blood Count 8.0 x10^3/uL (4.0-11.0) Red Blood Count 3.00 x10^6/uL (3.50-5.40) Hemoglobin 9.2 g/dL (12.0-15.5) Hematocrit 29.1 % (36.0-47.0) Mean Corpuscular Volume 97 fL (79-100) Mean Corpuscular Hemoglobin 31 pg (25-35) Mean Corpuscular Hemoglobin Concent 32 g/dL (31-37) Red Cell Distribution Width 15.1 % (11.5-14.5) Platelet Count 263 x10^3/uL (140-400) Neutrophils (%) (Auto) 76 % (31-73) Lymphocytes (%) (Auto) 15 % (24-48) Monocytes (%) (Auto) 7 % (0-9) Eosinophils (%) (Auto) 2 % (0-3) Basophils (%) (Auto) 0 % (0-3) Neutrophils # (Auto) 6.1 x10^3/uL (1.8-7.7) Lymphocytes # (Auto) 1.2 x10^3/uL (1.0-4.8) Monocytes # (Auto) 0.5 x10^3/uL (0.0-1.1) Eosinophils # (Auto) 0.2 x10^3/uL (0.0-0.7) Basophils # (Auto) 0.0 x10^3/uL (0.0-0.2) Sodium Level 143 mmol/L (136-145) 143 mmol/L (136-145) Potassium Level 3.5 mmol/L (3.5-5.1) 3.1 mmol/L (3.5-5.1) Chloride Level 112 mmol/L (98-107) 110 mmol/L (98-107) Carbon Dioxide Level 21 mmol/L (21-32) 20 mmol/L (21-32) Anion Gap 10 (6-14) 13 (6-14) Blood Urea Nitrogen 19 mg/dL (7-20) 17 mg/dL (7-20) Creatinine 1.5 mg/dL (0.6-1.0) 1.5 mg/dL (0.6-1.0) Estimated GFR (Cockcroft-Gault) 33.9 33.9 BUN/Creatinine Ratio 13 (6-20) 11 (6-20) Glucose Level 125 mg/dL (70-99) 98 mg/dL (70-99) Calcium Level 7.6 mg/dL (8.5-10.1) 7.7 mg/dL (8.5-10.1) Total Bilirubin 0.2 mg/dL (0.2-1.0) 0.1 mg/dL (0.2-1.0) Aspartate Amino Transf (AST/SGOT) 19 U/L (15-37) 13 U/L (15-37) Alanine Aminotransferase (ALT/SGPT) 18 U/L (14-59) 21 U/L (14-59) Alkaline Phosphatase 90 U/L (46-116) 87 U/L (46-116) Total Protein 5.6 g/dL (6.4-8.2) 5.1 g/dL (6.4-8.2) Albumin 1.2 g/dL (3.4-5.0) 1.2 g/dL (3.4-5.0) Albumin/Globulin Ratio 0.3 (1.0-1.7) 0.3 (1.0-1.7) Phosphorus Level 2.3 mg/dL (2.6-4.7) Laboratory Tests Test 07/17/20 09:20 Sodium Level 143 mmol/L (136-145) Potassium Level 3.1 mmol/L (3.5-5.1) Chloride Level 110 mmol/L (98-107) Carbon Dioxide Level 20 mmol/L (21-32) Anion Gap 13 (6-14) Blood Urea Nitrogen 17 mg/dL (7-20) Creatinine 1.5 mg/dL (0.6-1.0) Estimated GFR (Cockcroft-Gault) 33.9 BUN/Creatinine Ratio 11 (6-20) Glucose Level 98 mg/dL (70-99) Calcium Level 7.7 mg/dL (8.5-10.1) Phosphorus Level 2.3 mg/dL (2.6-4.7) Total Bilirubin 0.1 mg/dL (0.2-1.0) Aspartate Amino Transf (AST/SGOT) 13 U/L (15-37) Alanine Aminotransferase (ALT/SGPT) 21 U/L (14-59) Alkaline Phosphatase 87 U/L (46-116) Total Protein 5.1 g/dL (6.4-8.2) Albumin 1.2 g/dL (3.4-5.0) Albumin/Globulin Ratio 0.3 (1.0-1.7) Medications Active Scripts Medications Dose Route/Sig Max Daily Dose Days Date Category Cephalexin 250 Mg Capsule 500 Mg PO TID 07/06/20 Rx Metoprolol Tartrate 25 Mg Tablet 25 Mg PO BID 07/06/20 Rx Gabapentin (Gabapentin) 400 Mg Capsule 1,200 Mg PO QHS 30 07/06/20 Rx Aspirin Ec (Aspirin) 81 Mg Tablet. 81 Mg PO DAILYWBKFT 07/06/20 Rx Selenium 200 Mcg Capsule 0.5 Cap PO DAILY 30 07/01/20 Reported Marcia Stewart 36,000 Units Capsule (Lipase/Protease/Amylase) 1 Each Capsule. 1 Each PO TIDAC 07/01/20 Reported Zofran (Ondansetron Hcl) 4 Mg Tablet 1 Tab PO Q8HRS 07/01/20 Reported Mirtazapine 30 Mg Tablet 1 Tab PO QHS 07/01/20 Reported Levothyroxine (Levothyroxine Sodium) 100 Mcg Capsule 100 Mcg PO DAILY 07/01/20 Reported Ferrous Sulfate 325 Mg Tablet 1 Tab PO DAILY 07/01/20 Reported Vitamin D2 (Ergocalciferol (Vitamin D2)) 1,250 Mcg Capsule 1,250 Mcg PO DAILY 07/01/20 Reported Clonazepam 1 Mg Tablet 1 Mg PO BID 07/01/20 Reported Wellbutrin Xl (Bupropion Hcl) 300 Mg Tab.er.24h 1 Tab PO DAILY 07/01/20 Reported Abilify (Aripiprazole) 30 Mg Tablet 1 Tab PO DAILY 30 07/01/20 Reported Tylenol (Acetaminophen) 325 Mg Tablet 650 Mg PO PRN Q4HRS PRN 30 09/17/18 Rx Furosemide 40 Mg Tablet 40 Mg PO DAILY 30 09/17/18 Rx Senna-Time S Tablet (Sennosides/Docusate Sodium) 1 Each Tablet 2 Tab PO PRN BID PRN 30 09/17/18 Rx Calcium + Vitamin D Tablet (Calcium Carbonate/Vitamin D3) 1 Each Tablet 2 Each PO DAILY 09/14/18 Reported Multivitamins (Multivitamin) 1 Each Tablet 1 Tab PO DAILY 09/14/18 Reported Sodium Bicarbonate 650 Mg Tablet 2 Tab PO TID 09/14/18 Reported Omeprazole 40 Mg Capsule.dr 40 Mg PO BID 10/13/13 Reported Citalopram Hbr (Citalopram Hydrobromide) 40 Mg Tablet 20 Mg PO DAILY 10/13/13 Reported Impression . IMPRESSION: 1. Abnormal chest x-ray, abnormal CT chest, revealing several findings consolidation left lower lobe, nodular infiltrates, tree-in-bud opacities. 2. Leukocytosis 3. Mild chronic kidney disease. 4. Hypernatremia per PCP. 5. Mildly increased troponin level. 6. Left lower lobe pneumonia with small effusion Discussion reviewed CT chest, discussed with Dr. Montesinos, infectious disease service. We will proceed with diagnostic bronchoscopy, rule out the possibility of nontuberculous Mycobacterium, MAC. Impression CT chest: 1. Consolidated infiltrate with pleural effusion in the left lower lobe with sca ttered patchy nodular, tree-in-bud pattern opacities as well as patchy ground glass nodules seen in both lungs. A 1.2 cm nodule in the left apex with questionable cavitation is also present. Infectious etiology is favored. Given cavitary nodule, question of septic emboli is raised. Correlate clinically. Short-term interval follow-up CT chest after appropriate therapy may be obtained to evaluate interval resolution. Plan . Patient remains stable from a pulmonary standpoint, remains on room air Plan for bronchoscopy on Sunday, hold Lovenox Sunday night Follow cultures Follow ID recommendations in regards to antibiotics Follow nephrology recommendations in regards to renal function Physical therapy/Occupational Therapy/speech therapy Social work for DC planning DVT/GI prophylaxis CAROLINA CANNON MD Jul 17, 2020 11:10
[2020-07-17] MEDS ORDERED: POTASSIUM CHLORIDE 20 MEQ TABLET.ER. PO ONE (14:00)
[2020-07-17 15:00] VITALS: BP 107/59
--- NOTE | 2020-07-17 15:51 | PDOC ---
Renal-Progress Notes Subjective Notes Notes NO NEW COMPLAINTS History of Present Illness Hx of present illness STABLE Vitals Vitals Vital Signs Date Time Temp Pulse Resp B/P (MAP) Pulse Ox O2 Delivery O2 Flow Rate FiO2 07/17/20 11:00 98.3 63 17 129/66 (87) 99 Room Air 98.3 07/16/20 20:00 97.0 Weight Weight [ ] I.O. Intake and Output Intake and Output 07/17/20 07:00 Intake Total 400 ml Balance 400 ml Intake Oral 400 ml # Voids 7 # Bowel Movements 2 Labs Labs Laboratory Tests Test 07/17/20 09:20 Sodium Level 143 mmol/L (136-145) Potassium Level 3.1 mmol/L (3.5-5.1) Chloride Level 110 mmol/L (98-107) Carbon Dioxide Level 20 mmol/L (21-32) Anion Gap 13 (6-14) Blood Urea Nitrogen 17 mg/dL (7-20) Creatinine 1.5 mg/dL (0.6-1.0) Estimated GFR (Cockcroft-Gault) 33.9 BUN/Creatinine Ratio 11 (6-20) Glucose Level 98 mg/dL (70-99) Calcium Level 7.7 mg/dL (8.5-10.1) Phosphorus Level 2.3 mg/dL (2.6-4.7) Total Bilirubin 0.1 mg/dL (0.2-1.0) Aspartate Amino Transf (AST/SGOT) 13 U/L (15-37) Alanine Aminotransferase (ALT/SGPT) 21 U/L (14-59) Alkaline Phosphatase 87 U/L (46-116) Total Protein 5.1 g/dL (6.4-8.2) Albumin 1.2 g/dL (3.4-5.0) Albumin/Globulin Ratio 0.3 (1.0-1.7) Micro Micro Microbiology 07/14/20 Blood Culture - Preliminary, Resulted NO GROWTH AFTER 2 DAYS 07/14/20 Urine Culture - Final, Complete Review of Systems Constitutional: yes: other (CONFUSED) Physical Exam General Appearance: no apparent distress, febrile Skin: warm Respiratory: decreased breath sounds Heart: S1S2 Abdomen: soft, bowel sounds present Genitourinary: bladder flat Extremities: pulses present, atrophy Neurology: alert, confused Musculoskeletal: Osteoarthritis, Other Assessment Assessment IMP CKD STAGE 3B-CR STABLE AND AT BASELINE-1.5 LEUCOCYTOSIS AND FEVER PROB LLL PNEUMONIA MILD HYPERNATREMIA-RESOLVED HYPOKALEMIA LOW PO4 HX HTN PLAN HYDRATION REPLACE K AND PO4 ANTIBIOTICS PULM AND ID EVAL WILL FOLLOW MARGARET MOHAN MD Jul 17, 2020 15:51
[2020-07-17] MEDS ORDERED: SODIUM PHOSPHATE 15 MMOL in IV NORMAL SALINE 100ML 100 ML IV ONE (16:30)
[2020-07-17 19:00] VITALS: BP 127/63
[2020-07-17] MEDS: MIRTAZAPINE 15 MG TABLET PO SCH (22:29)
[2020-07-17] MEDS: GABAPENTIN 400 MG CAPSULE. PO SCH (22:29)
[2020-07-17 23:00] VITALS: BP 112/70
[2020-07-18] MEDS: PIPERACILLIN/TAZOBACTAM 3.375 GM in IV NORMAL SALINE 50ML 50 ML IV SCH ×4 (00:35→19:36)
[2020-07-18 03:00] VITALS: BP 139/76
[2020-07-18] MEDS: LEVOTHYROXINE 100 MCG TABLET PO SCH (05:53)
[2020-07-18] MEDS: ONDANSETRON ODT 4 MG TAB.RAPDIS. PO SCH ×3 (06:00→21:12)
[2020-07-18 07:00] VITALS: BP 129/73
--- NOTE | 2020-07-18 07:58 | PDOC ---
Infectious Disease Note Subjective Subjective Feeling well. No F/C/S/N/D/SOA/rash or pain ROS ROS o/w neg Vital Sign Vital Signs Vital Signs Date Time Temp Pulse Resp B/P (MAP) Pulse Ox O2 Delivery O2 Flow Rate FiO2 07/18/20 03:00 98.2 68 18 139/76 (97) 97 Room Air 98.2 Physical Exam PHYSICAL EXAM GENERAL: Alert female, not in any distress. eating again HEENT: Both pupils are round and reacting. No conjunctival lesion, no lesion in the mouth. NECK: Supple, no JVP, no lymphadenopathy. LUNGS: Clear to auscultation and percussion. HEART: S1, S2 regular. ABDOMEN: Soft, nontender, no organomegaly. PEG clean EXTREMITIES: No edema, cyanosis. Dressing over clean scab LLE SKIN: Unremarkable. NEUROLOGIC: The patient is alert, awake and appropriate. Does have poor memory, but she is able to move all the extremities. Labs Lab Laboratory Tests Test 07/17/20 09:20 Sodium Level 143 mmol/L (136-145) Potassium Level 3.1 mmol/L (3.5-5.1) Chloride Level 110 mmol/L (98-107) Carbon Dioxide Level 20 mmol/L (21-32) Anion Gap 13 (6-14) Blood Urea Nitrogen 17 mg/dL (7-20) Creatinine 1.5 mg/dL (0.6-1.0) Estimated GFR (Cockcroft-Gault) 33.9 BUN/Creatinine Ratio 11 (6-20) Glucose Level 98 mg/dL (70-99) Calcium Level 7.7 mg/dL (8.5-10.1) Phosphorus Level 2.3 mg/dL (2.6-4.7) Total Bilirubin 0.1 mg/dL (0.2-1.0) Aspartate Amino Transf (AST/SGOT) 13 U/L (15-37) Alanine Aminotransferase (ALT/SGPT) 21 U/L (14-59) Alkaline Phosphatase 87 U/L (46-116) Total Protein 5.1 g/dL (6.4-8.2) Albumin 1.2 g/dL (3.4-5.0) Albumin/Globulin Ratio 0.3 (1.0-1.7) Micro Microbiology 07/14/20 Blood Culture - Preliminary, Resulted NO GROWTH AFTER 2 DAYS Objective Assessment 1. Fever - better. 06/21 bacteremia 07/14 GPC 2. Leukocytosis - better 3. Pulmonary infiltrate with a tree-in-bud opacity as well as a possible cavitation.COVID neg 4. Abnormal urinalysis, although no other urinary symptoms - CALB 5. Debility and self-care problem. 6. Suspected mild dementia. Plan Plan of Care Continue Zosyn/Zyvox, supportive care and we will talk to the Pulmonary for possible bronchoscopy and culture for bacterial and AFB stain and culture. Dapto with + BC cont Zyvox for lung. Avoid Vanc with NIC. BMP Ck in am DEVAN WISE MD Jul 18, 2020 07:58
[2020-07-18] MEDS: LIPASE/PROTEAS/AMYLAS 10/32/42 CAPSULE.DR. PO SCH ×3 (09:09→16:09)
[2020-07-18] MEDS: buPROPion XL 150 MG TAB.ER.24H. PO SCH (09:12)
[2020-07-18] MEDS: SODIUM BICARBONATE 650 MG TABLET. PO SCH ×3 (09:12→21:03)
[2020-07-18] MEDS: MULTIVITAMIN with MINERAL TABLET. PO SCH (09:13)
[2020-07-18] MEDS: CALCIUM CARB/VIT D3 500/200 TABLET. PO SCH (09:14)
[2020-07-18] MEDS: LACTOBACILLUS RHAMNOSUS GG 1 CAPSULE. PO SCH ×2 (09:15→21:03)
[2020-07-18] MEDS: PANTOPRAZOLE 40 MG TABLET.DR. PO SCH ×2 (09:15→15:52)
[2020-07-18] MEDS: FERROUS SULFATE 325 MG TABLET. PO SCH (09:15)
[2020-07-18] MEDS: FUROSEMIDE 40 MG TABLET. PO SCH (09:15)
[2020-07-18] MEDS: METOPROLOL TART IMMED RELEASE 25 MG TABLET. PO SCH ×2 (09:16→21:04)
[2020-07-18] MEDS: ASPIRIN ENTERIC COATED 81 MG TABLET.DR. PO SCH (09:16)
[2020-07-18] MEDS: POTASSIUM CHLORIDE 20 MEQ TABLET.ER. PO SCH (09:16)
[2020-07-18] MEDS: IV DEXTROSE 5 %-0.45 % NACL 1,000 ML IV SCH ×2 (09:17→21:06)
[2020-07-18] MEDS: VITS A & D/LANOLIN TOPICAL OINTMENT 42GM TUBE. TP SCH ×2 (09:36→21:12)
[2020-07-18] MEDS: CITALOPRAM 20 MG TABLET. PO SCH (09:36)
[2020-07-18 10:27] LABS: MAGNESIUM 1.4 mg/dL (1.8-2.4); PHOSPHORUS 3.1 mg/dL (2.6-4.7)
[2020-07-18 10:27] LABS: CALCIUM 7.9 mg/dL (8.5-10.1); CREATININE 1.4 mg/dL (0.6-1.0); GFR 36.8; POTASSIUM 3.5 mmol/L (3.5-5.1)
[2020-07-18 11:00] VITALS: BP 141/66
--- NOTE | 2020-07-18 11:02 | PDOC ---
[employer] PROGRESS NOTE Date of Service DOS: DATE: 07/18/20 TIME: 10:55 Chief Complaint Chief Complaint 1. acute metabolic encephalopathy, with altered mentation, new, already improving 2. hypoxic respiratory failure, improved 3. sepsis, 4. recent Septic shock, 5. Acute kidney injury, vasomotor nephropathy on CKD 4 History of Present Illness History of Present Illness 07/18/2020 - pt seen and examined at bedside - discussed pt care with RN - pt on IV Abx - discussed bronchoscopy with pt which is planned to happen tomorrow - pt asked for continuation of home med Klonopin 1mg PO BID Vitals/I&O Vitals/I&O: Vital Signs Date Time Temp Pulse Resp B/P (MAP) Pulse Ox O2 Delivery O2 Flow Rate FiO2 07/18/20 09:16 64 129/73 07/18/20 08:00 Room Air 07/18/20 07:00 97.7 16 97 97.7 I & O 07/17/20 07/17/20 07/18/20 15:00 23:00 07:00 Intake Total 1000 ml 400 ml Output Total 0 ml Balance 1000 ml 400 ml Physical Exam Physical Exam: GENERAL: Alert female, not in any distress. eating again HEENT: Both pupils are round and reacting. No conjunctival lesion, no lesion in the mouth. NECK: Supple, no JVP, no lymphadenopathy. LUNGS: Clear to auscultation and percussion. HEART: S1, S2 regular. ABDOMEN: Soft, nontender, no organomegaly. PEG clean EXTREMITIES: No edema, cyanosis. Dressing over clean scab LLE SKIN: Unremarkable. NEUROLOGIC: The patient is alert, awake and appropriate. Does have poor memory, but she is able to move all the extremities. General: Alert, Cooperative, No acute distress Heart: Regular rate Lungs: Clear, Crackles Abdomen: Normal bowel sounds, Soft Extremities: No clubbing Skin: No breakdown Labs Labs: Laboratory Tests Test 07/18/20 08:06 07/18/20 08:36 Sodium Level 142 mmol/L (136-145) Potassium Level 3.5 mmol/L (3.5-5.1) Chloride Level 108 mmol/L (98-107) Carbon Dioxide Level 22 mmol/L (21-32) Anion Gap 12 (6-14) Blood Urea Nitrogen 13 mg/dL (7-20) Creatinine 1.4 mg/dL (0.6-1.0) Estimated GFR (Cockcroft-Gault) 36.8 Glucose Level 101 mg/dL (70-99) Calcium Level 7.9 mg/dL (8.5-10.1) Creatine Kinase 15 U/L (26-192) Phosphorus Level 3.1 mg/dL (2.6-4.7) Magnesium Level 1.4 mg/dL (1.8-2.4) Review of Systems Review of Systems: pt denies abdominal pain, pt complains of generalized weakness Assessment and Plan Assessmemt and Plan Problems Medical Problems: (1) AMS (altered mental status) Status: Acute (2) Leukocytosis Status: Acute Assessment 1. acute metabolic encephalopathy, with altered mentation, new, already improving 2. hypoxic respiratory failure, improved 3. sepsis, 4. recent Septic shock, 5. Acute kidney injury, vasomotor nephropathy on CKD 4 Plan - continue IV broad spectrum Abx - continue IV maintenance fluids - trend labs - bronchoscopy tomorrow per pulmonology recommendations - PT/OT - Klonopin 1mg bid - DVT prophylaxis - full code Comment Review of Relevant I have reviewed the following items isreal (where applicable) has been applied. Medications: Current Medications Medications (Trade) Dose Ordered Sig/Sumit Route PRN Reason Start Time Stop Time Status Last Admin Dose Admin Potassium Chloride (Klor-Con) 40 meq 1X ONCE PO 07/17/20 14:00 07/17/20 14:01 DC 07/17/20 14:16 Potassium Chloride (Klor-Con) 20 meq DAILYWBKFT PO 07/18/20 08:00 07/18/20 09:16 Sodium Phosphate 15 mmol/Sodium Chloride 105 ml @ 105 mls/hr 1X ONCE IV 07/17/20 16:30 07/17/20 17:29 DC 07/17/20 19:14 Justifications for Admission Other Justification acute electrolyte imbalance, metabolic encephalopathy, sepsis MARYANN DUBOIS III DO Jul 18, 2020 11:02
--- NOTE | 2020-07-18 11:09 | PDOC ---
PULMONARY PROGRESS NOTES DATE: 07/18/20 TIME: 11:08 Subjective Patient more short of air. She is not on oxygen. Denies any shortness of breath, or cough Afebrile overnight Vitals Vital Signs Date Time Temp Pulse Resp B/P (MAP) Pulse Ox O2 Delivery O2 Flow Rate FiO2 07/18/20 09:16 64 129/73 07/18/20 08:00 Room Air 07/18/20 07:00 97.7 16 97 97.7 ROS: No Nausea, No Chest Pain, No Abdominal Pain, No Increase Cough General: Alert, Oriented X4 HEENT: Other Lungs: Clear Cardiovascular: S1, S2 Abdomen: Soft Extremities: No Edema Labs Laboratory Tests Test 07/16/20 18:30 07/17/20 09:20 07/18/20 08:06 07/18/20 08:36 Coronavirus (PCR) Not detected (Not Detected) Sodium Level 143 mmol/L (136-145) 142 mmol/L (136-145) Potassium Level 3.1 mmol/L (3.5-5.1) 3.5 mmol/L (3.5-5.1) Chloride Level 110 mmol/L (98-107) 108 mmol/L (98-107) Carbon Dioxide Level 20 mmol/L (21-32) 22 mmol/L (21-32) Anion Gap 13 (6-14) 12 (6-14) Blood Urea Nitrogen 17 mg/dL (7-20) 13 mg/dL (7-20) Creatinine 1.5 mg/dL (0.6-1.0) 1.4 mg/dL (0.6-1.0) Estimated GFR (Cockcroft-Gault) 33.9 36.8 BUN/Creatinine Ratio 11 (6-20) Glucose Level 98 mg/dL (70-99) 101 mg/dL (70-99) Calcium Level 7.7 mg/dL (8.5-10.1) 7.9 mg/dL (8.5-10.1) Phosphorus Level 2.3 mg/dL (2.6-4.7) 3.1 mg/dL (2.6-4.7) Total Bilirubin 0.1 mg/dL (0.2-1.0) Aspartate Amino Transf (AST/SGOT) 13 U/L (15-37) Alanine Aminotransferase (ALT/SGPT) 21 U/L (14-59) Alkaline Phosphatase 87 U/L (46-116) Total Protein 5.1 g/dL (6.4-8.2) Albumin 1.2 g/dL (3.4-5.0) Albumin/Globulin Ratio 0.3 (1.0-1.7) Creatine Kinase 15 U/L (26-192) Magnesium Level 1.4 mg/dL (1.8-2.4) Laboratory Tests Test 07/18/20 08:06 07/18/20 08:36 Sodium Level 142 mmol/L (136-145) Potassium Level 3.5 mmol/L (3.5-5.1) Chloride Level 108 mmol/L (98-107) Carbon Dioxide Level 22 mmol/L (21-32) Anion Gap 12 (6-14) Blood Urea Nitrogen 13 mg/dL (7-20) Creatinine 1.4 mg/dL (0.6-1.0) Estimated GFR (Cockcroft-Gault) 36.8 Glucose Level 101 mg/dL (70-99) Calcium Level 7.9 mg/dL (8.5-10.1) Creatine Kinase 15 U/L (26-192) Phosphorus Level 3.1 mg/dL (2.6-4.7) Magnesium Level 1.4 mg/dL (1.8-2.4) Medications Active Scripts Medications Dose Route/Sig Max Daily Dose Days Date Category Cephalexin 250 Mg Capsule 500 Mg PO TID 07/06/20 Rx Metoprolol Tartrate 25 Mg Tablet 25 Mg PO BID 07/06/20 Rx Gabapentin (Gabapentin) 400 Mg Capsule 1,200 Mg PO QHS 30 07/06/20 Rx Aspirin Ec (Aspirin) 81 Mg Tablet. 81 Mg PO DAILYWBKFT 07/06/20 Rx Selenium 200 Mcg Capsule 0.5 Cap PO DAILY 30 07/01/20 Reported Marcia Stewart 36,000 Units Capsule (Lipase/Protease/Amylase) 1 Each Capsule. 1 Each PO TIDAC 07/01/20 Reported Zofran (Ondansetron Hcl) 4 Mg Tablet 1 Tab PO Q8HRS 07/01/20 Reported Mirtazapine 30 Mg Tablet 1 Tab PO QHS 07/01/20 Reported Levothyroxine (Levothyroxine Sodium) 100 Mcg Capsule 100 Mcg PO DAILY 07/01/20 Reported Ferrous Sulfate 325 Mg Tablet 1 Tab PO DAILY 07/01/20 Reported Vitamin D2 (Ergocalciferol (Vitamin D2)) 1,250 Mcg Capsule 1,250 Mcg PO DAILY 07/01/20 Reported Clonazepam 1 Mg Tablet 1 Mg PO BID 07/01/20 Reported Wellbutrin Xl (Bupropion Hcl) 300 Mg Tab.er.24h 1 Tab PO DAILY 07/01/20 Reported Abilify (Aripiprazole) 30 Mg Tablet 1 Tab PO DAILY 30 07/01/20 Reported Tylenol (Acetaminophen) 325 Mg Tablet 650 Mg PO PRN Q4HRS PRN 30 09/17/18 Rx Furosemide 40 Mg Tablet 40 Mg PO DAILY 30 09/17/18 Rx Senna-Time S Tablet (Sennosides/Docusate Sodium) 1 Each Tablet 2 Tab PO PRN BID PRN 30 09/17/18 Rx Calcium + Vitamin D Tablet (Calcium Carbonate/Vitamin D3) 1 Each Tablet 2 Each PO DAILY 09/14/18 Reported Multivitamins (Multivitamin) 1 Each Tablet 1 Tab PO DAILY 09/14/18 Reported Sodium Bicarbonate 650 Mg Tablet 2 Tab PO TID 09/14/18 Reported Omeprazole 40 Mg Capsule.dr 40 Mg PO BID 10/13/13 Reported Citalopram Hbr (Citalopram Hydrobromide) 40 Mg Tablet 20 Mg PO DAILY 10/13/13 Reported Impression . IMPRESSION: 1. Abnormal chest x-ray, abnormal CT chest, revealing several findings consolidation left lower lobe, nodular infiltrates, tree-in-bud opacities. 2. Leukocytosis 3. Mild chronic kidney disease. 4. Hypernatremia per PCP. 5. Mildly increased troponin level. 6. Left lower lobe pneumonia with small effusion Discussion reviewed CT chest, discussed with Dr. Montesinos, infectious disease service. We will proceed with diagnostic bronchoscopy, rule out the possibility of nontuberculous Mycobacterium, MAC. Impression CT chest: 1. Consolidated infiltrate with pleural effusion in the left lower lobe with scattered patchy nodular, tree-in-bud pattern opacities as well as patchy ground glass nodules seen in both lungs. A 1.2 cm nodule in the left apex with questionable cavitation is also present. Infectious etiology is favored. Given cavitary nodule, question of septic emboli is raised. Correlate clinically. Short-term interval follow-up CT chest after appropriate therapy may be obtained to evaluate interval resolution. Plan . Reviewed risk benefits and alternatives to bronchoscopy, patient accepted. Follow cultures-- NGTD Follow ID recommendations in regards to antibiotics Follow nephrology recommendations Physical therapy/Occupational Therapy/speech therapy Social work for DC planning DVT/GI prophylaxis CAROLINA CANNON MD Jul 18, 2020 11:09
--- NOTE | 2020-07-18 14:49 | PDOC ---
Renal-Progress Notes Subjective Notes Notes NO NEW COMPLAINTS History of Present Illness Hx of present illness STABLE Vitals Vitals Vital Signs Date Time Temp Pulse Resp B/P (MAP) Pulse Ox O2 Delivery O2 Flow Rate FiO2 07/18/20 11:00 98.5 68 17 141/66 (91) 93 Room Air 98.5 Weight Weight [ ] I.O. Intake and Output Intake and Output 07/18/20 07:00 Intake Total 1400 ml Output Total 0 ml Balance 1400 ml IV Total 1400 ml Output Urine Total 0 ml # Voids 9 # Bowel Movements 4 Labs Labs Laboratory Tests Test 07/18/20 08:06 07/18/20 08:36 Sodium Level 142 mmol/L (136-145) Potassium Level 3.5 mmol/L (3.5-5.1) Chloride Level 108 mmol/L (98-107) Carbon Dioxide Level 22 mmol/L (21-32) Anion Gap 12 (6-14) Blood Urea Nitrogen 13 mg/dL (7-20) Creatinine 1.4 mg/dL (0.6-1.0) Estimated GFR (Cockcroft-Gault) 36.8 Glucose Level 101 mg/dL (70-99) Calcium Level 7.9 mg/dL (8.5-10.1) Creatine Kinase 15 U/L (26-192) Phosphorus Level 3.1 mg/dL (2.6-4.7) Magnesium Level 1.4 mg/dL (1.8-2.4) Micro Micro Microbiology 07/17/20 Blood Culture - Preliminary, Resulted NO GROWTH AFTER 1 DAY 07/14/20 Urine Culture - Final, Complete Review of Systems Constitutional: yes: other (CONFUSED) Physical Exam General Appearance: no apparent distress, febrile Skin: warm Respiratory: decreased breath sounds Heart: S1S2 Abdomen: soft, bowel sounds present Genitourinary: bladder flat Extremities: pulses present, atrophy Neurology: alert, confused Musculoskeletal: Osteoarthritis, Other Assessment Assessment IMP CKD STAGE 3B-CR STABLE AND AT BASELINE-1.5 LEUCOCYTOSIS AND FEVER PROB LLL PNEUMONIA MILD HYPERNATREMIA-RESOLVED HYPOKALEMIA LOW PO4-CORRECTED LOW MAG HX HTN PLAN HYDRATION REPLACE K AND MAG ANTIBIOTICS PULM AND ID EVAL WILL FOLLOW MARGARET MOHAN MD Jul 18, 2020 14:49
[2020-07-18 15:00] VITALS: BP 151/71
[2020-07-18] MEDS ORDERED: POTASSIUM CHLORIDE 20 MEQ TABLET.ER. PO ONE (15:00)
[2020-07-18] MEDS ORDERED: MAGNESIUM SULFATE 2GM 50 ML IV ONE (15:00)
[2020-07-18] MEDS: ARIPiprazole 5 MG TABLET PO SCH (15:55)
[2020-07-18] MEDS: clonazePAM 0.5 MG TABLET PO PRN (16:09)
[2020-07-18 19:00] VITALS: BP 102/56
[2020-07-18] MEDS: GABAPENTIN 400 MG CAPSULE. PO SCH (21:03)
[2020-07-18] MEDS: MIRTAZAPINE 15 MG TABLET PO SCH (21:03)
[2020-07-18 23:00] VITALS: BP 88/47
[2020-07-19] MEDS: PIPERACILLIN/TAZOBACTAM 3.375 GM in IV NORMAL SALINE 50ML 50 ML IV SCH ×5 (00:53→23:47)
[2020-07-19 03:00] VITALS: BP 123/71
[2020-07-19] MEDS: IV DEXTROSE 5 %-0.45 % NACL 1,000 ML IV SCH (05:27)
[2020-07-19] MEDS: ONDANSETRON ODT 4 MG TAB.RAPDIS. PO SCH (05:29)
[2020-07-19] MEDS: LEVOTHYROXINE 100 MCG TABLET PO SCH ×2 (05:29→12:42)
[2020-07-19] MEDS ORDERED: ONDANSETRON ODT 4 MG TAB.RAPDIS. PO PRN (05:45)
[2020-07-19 07:00] VITALS: BP 130/70
[2020-07-19] MEDS ORDERED: LIDOCAINE 2% VISCOUS 100 ML BOTTLE. ONE ×2 (07:35→07:37)
[2020-07-19] MEDS ORDERED: EPINEPHrine 1 MG/ML VIAL ONE ×2 (07:35→07:36)
[2020-07-19] MEDS ORDERED: LIDOCAINE 4% TOPICAL 50 ML SOLUTION. ONE ×2 (07:36→07:37)
[2020-07-19] MEDS ORDERED: LIDOCAINE 1% Multi-Dose 20 ML VIAL. ONE ×3 (07:37→09:57)
[2020-07-19] MEDS ORDERED: EPINEPHrine 1 MG/ML VIAL INJ PRN (08:00)
[2020-07-19] MEDS ORDERED: PROPOFOL 10 MG/ML (20ML) VIAL. IV ONE (08:00)
[2020-07-19] MEDS ORDERED: LIDOCAINE 2% VISCOUS 100 ML BOTTLE. MM PRN (08:00)
[2020-07-19] MEDS: LIPASE/PROTEAS/AMYLAS 10/32/42 CAPSULE.DR. PO SCH ×3 (08:00→17:27)
[2020-07-19] MEDS ORDERED: LIDOCAINE 4% TOPICAL 50 ML SOLUTION. MM PRN (08:00)
[2020-07-19] MEDS ORDERED: ALBUTEROL SULFATE 2.5 MG/3 ML NEBU. NEB PRN (08:00)
[2020-07-19] MEDS ORDERED: IV RINGERS,LACTATED 1000ML 1,000 ML IV ONE (08:45)
--- NOTE | 2020-07-19 09:07 | PDOC ---
Infectious Disease Note Subjective Subjective Feeling well. No F/C/S/N/D/SOA/rash or pain Vital Sign Vital Signs Vital Signs Date Time Temp Pulse Resp B/P (MAP) Pulse Ox O2 Delivery O2 Flow Rate FiO2 07/19/20 07:00 98.2 64 16 130/70 (90) 98 Room Air 98.2 Physical Exam PHYSICAL EXAM GENERAL: Alert female, not in any distress. eating again HEENT: Both pupils are round and reacting. No conjunctival lesion, no lesion in the mouth. NECK: Supple, no JVP, no lymphadenopathy. LUNGS: Clear to auscultation and percussion. HEART: S1, S2 regular. ABDOMEN: Soft, nontender, no organomegaly. PEG clean EXTREMITIES: No edema, cyanosis. Dressing over clean scab LLE SKIN: Unremarkable. NEUROLOGIC: The patient is alert, awake and appropriate. Does have poor memory, but she is able to move all the extremities. Labs Micro Microbiology 07/14/20 Blood Culture - Preliminary, Resulted NO GROWTH AFTER 1 DAY Objective Assessment 1. Fever. 2. Leukocytosis. 3. Pulmonary infiltrate with a tree-in-bud opacity as well as a possible cavitation. 4. Abnormal urinalysis, although no other urinary symptoms. 5. Debility and self-care problem. 6. Suspected mild dementia. Plan Plan of Care Continue Zosyn/Zyvox, supportive care and we will talk to the Pulmonary for possible bronchoscopy and culture for bacterial and AFB stain and culture. Bronchoscopy today DREW ASTORGA MD Jul 19, 2020 09:07
[2020-07-19 09:08] LABS: CALCIUM 8.1 mg/dL (8.5-10.1); CREATININE 1.4 mg/dL (0.6-1.0); GFR 36.8; MAGNESIUM 2.1 mg/dL (1.8-2.4); POTASSIUM 3.8 mmol/L (3.5-5.1)
--- NOTE | 2020-07-19 09:53 | PDOC ---
DATE OF SERVICE DATE: 07/19/20 TIME: 09:53 SUBJECTIVE ROS Feeling well, no complaints OBJECTIVE Vital Signs Vital Signs Date Time Temp Pulse Resp B/P (MAP) Pulse Ox O2 Delivery O2 Flow Rate FiO2 07/19/20 07:00 98.2 64 16 130/70 (90) 98 Room Air 98.2 PHYSICAL EXAM Physical Exam GENERAL:NAD HEENT: OM moist NECK: Supple, . LUNGS: Clear to auscultation HEART: S1, S2 regular. ABDOMEN: Soft, nontender, no organomegaly. PEG + EXTREMITIES: No edema, cyanosis. SKIN: Unremarkable. NEUROLOGIC: alert, awake and appropriate. DIAGNOSIS/ASSESSMENT Assessment & Plan CKD Stage 3B-Cr stable at baseline . Supportive care , avoid nephrotoxins Fever/Leukocytosis. Pulmonary infiltrate with a tree-in-bud opacity as well as a possible cavitation- Bronchoscopy today Abnormal urinalysis, ID following Severe PEM - per Primary COMMENT/RELEVANT DATA Meds Current Medications Medications (Trade) Dose Ordered Sig/Sumit Start Time Stop Time Status Last Admin Dose Admin Acetaminophen (Tylenol) 650 mg PRN Q4HRS PRN 07/15/20 13:30 Cancel Al Hydroxide/Mg Hydroxide (Mylanta Plus Xs) 30 ml PRN DAILY PRN 07/15/20 11:30 Albuterol Sulfate (Ventolin Neb Soln) 2.5 mg PRN 1X PRN 07/19/20 08:00 07/20/20 07:59 Amylase/Lipase/ Protease (Zenpep 10,000) 3 cap TIDWMEALS 07/15/20 17:00 07/18/20 16:09 3 CAP Aripiprazole (Abilify) 30 mg DAILY 07/15/20 14:00 07/18/20 15:55 30 MG Aspirin (Ecotrin) 81 mg DAILYWBKFT 07/15/20 14:00 07/18/20 09:16 81 MG Bupropion HCl (Wellbutrin Xl) 300 mg DAILY 07/15/20 14:00 07/18/20 09:12 300 MG Calcium/Vitamin D (Oscal D 500mg/ 200uts) 2 tab DAILY 07/15/20 14:00 07/18/20 09:14 2 TAB Citalopram Hydrobromide (CeleXA) 20 mg DAILY 07/15/20 14:00 07/18/20 09:36 20 MG Clonazepam (KlonoPIN) 1 mg BID PRN 07/18/20 11:15 07/18/20 16:09 1 MG Daptomycin 350 mg/ Sodium Chloride 50 ml @ 100 mls/hr Q48H 07/17/20 10:00 07/18/20 13:26 DC 07/17/20 15:09 100 MLS/HR Dextrose/Sodium Chloride 1,000 ml @ 75 mls/hr [id number] 07/15/20 11:30 07/19/20 05:27 75 MLS/HR Docusate Sodium (Colace) 100 mg PRN BID PRN 07/15/20 11:30 Enoxaparin Sodium (Lovenox 30mg Syringe) 30 mg Q24H 07/15/20 12:00 07/17/20 11:13 DC 07/16/20 11:58 30 MG Epinephrine HCl (Adrenalin) 1 mg STK-MED ONCE 07/19/20 07:36 07/19/20 07:37 DC Ergocalciferol (Vitamin D2) 50,000 unit Fr 07/16/20 09:00 07/16/20 08:06 50,000 UNIT Ferrous Sulfate (Feosol) 325 mg DAILY 07/15/20 14:00 07/18/20 09:15 325 MG Furosemide (Lasix) 40 mg DAILY 07/15/20 14:00 07/18/20 09:15 40 MG Gabapentin (Neurontin) 1,200 mg QHS 07/15/20 21:00 07/18/20 21:03 1,200 MG Guaifenesin (Robitussin) 200 mg PRN Q4HRS PRN 07/15/20 11:30 Lactobacillus Rhamnosus (Culturelle) 1 cap BID 07/16/20 21:00 07/18/20 21:03 1 CAP Levothyroxine Sodium (Synthroid) 100 mcg DAILY06 07/16/20 06:00 07/18/20 05:53 100 MCG Lidocaine HCl (Lidocaine 1% 20ml Vial) 20 ml STK-MED ONCE 07/19/20 07:38 07/19/20 07:38 DC Lidocaine HCl (Lidocaine 2% Viscous) 100 ml STK-MED ONCE 07/19/20 07:37 07/19/20 07:37 DC Lidocaine HCl (Lidocaine 4% Topical) 50 ml STK-MED ONCE 07/19/20 07:37 07/19/20 07:37 DC Linezolid/Dextrose 300 ml @ 300 mls/hr Q12HR 07/16/20 09:00 07/18/20 21:04 300 MLS/HR Magnesium Sulfate 50 ml @ 25 mls/hr 1X ONCE 07/18/20 15:00 07/18/20 16:59 DC 07/18/20 15:52 25 MLS/HR Metoprolol Tartrate (Lopressor) 25 mg BID 07/15/20 14:00 07/18/20 21:04 25 MG Mirtazapine (Remeron) 30 mg QHS 07/15/20 21:00 07/18/20 21:03 30 MG Morphine Sulfate (Morphine Sulfate) 4 mg PRN Q2HR PRN 07/14/20 21:15 07/15/20 21:14 DC Multivitamins (Thera M Plus) 1 tab DAILY 07/15/20 14:00 07/18/20 09:13 1 TAB Non-Formulary Medication (Selenium ) 0.5 cap DAILY 07/16/20 09:00 UNV Ondansetron HCl (Zofran Odt) 4 mg PRN Q8HRS PRN 07/19/20 05:45 Ondansetron HCl (Zofran) 4 mg PRN Q4HRS PRN 07/15/20 11:30 07/16/20 09:08 4 MG Pantoprazole Sodium (Protonix) 40 mg BIDAC 07/15/20 16:30 07/18/20 15:52 40 MG Piperacillin Sod/ Tazobactam Sod (Zosyn Per Pharmacy) 1 each PRN DAILY PRN 07/15/20 09:00 Piperacillin Sod/ Tazobactam Sod 2.25 gm/Sodium Chloride 50 ml @ 100 mls/hr Q6HRS 07/15/20 09:00 07/15/20 11:27 DC 07/15/20 09:29 100 MLS/HR Piperacillin Sod/ Tazobactam Sod 3.375 gm/Sodium Chloride 50 ml @ 100 mls/hr Q6HRS 07/15/20 12:00 07/19/20 05:27 100 MLS/HR Potassium Chloride (Klor-Con) 20 meq 1X ONCE 07/18/20 15:00 07/18/20 15:01 DC 07/18/20 16:03 20 MEQ Ringer's Solution 1,000 ml @ 75 mls/hr 1X ONCE 07/19/20 08:45 07/19/20 22:04 Senna/Docusate Sodium (Senna Plus) 2 tab PRN BID PRN 07/15/20 13:30 Sodium Monofluorophosphate (Fleet Adult) 133 ml PRN DAILY PRN 07/15/20 11:30 Sodium Bicarbonate (Sodium Bicarbonate) 1,300 mg TID 07/15/20 14:00 07/18/20 21:03 1,300 MG Sodium Chloride (Normal Saline Flush) 3 ml QSHIFT PRN 07/15/20 11:30 Sodium Phosphate 15 mmol/Sodium Chloride 105 ml @ 105 mls/hr 1X ONCE 07/17/20 16:30 07/17/20 17:29 DC 07/17/20 19:14 105 MLS/HR Vancomycin HCl 250 ml @ 250 mls/hr 1X ONCE 07/14/20 20:45 07/14/20 21:44 DC 07/15/20 01:52 250 MLS/HR Vitamin A/Vitamin D (Vitamin A & D Ointment) 1 uziel BID 07/15/20 21:00 07/18/20 21:12 1 UZIEL Lab Laboratory Tests Test 07/19/20 07:35 Sodium Level 142 mmol/L (136-145) Potassium Level 3.8 mmol/L (3.5-5.1) Chloride Level 110 mmol/L (98-107) Carbon Dioxide Level 19 mmol/L (21-32) Anion Gap 13 (6-14) Blood Urea Nitrogen 12 mg/dL (7-20) Creatinine 1.4 mg/dL (0.6-1.0) Estimated GFR (Cockcroft-Gault) 36.8 Glucose Level 78 mg/dL (70-99) Calcium Level 8.1 mg/dL (8.5-10.1) Magnesium Level 2.1 mg/dL (1.8-2.4) Results All relevant outside records, renal labs, imaging studies, telemetry/EKG's were reviewed. Justicifation of Admission Dx: Justifications for Admission: Justification of Admission Dx: Yes ELEANOR MAHAN MD Jul 19, 2020 09:53
[2020-07-19] MEDS: LIDOCAINE 1% Multi-Dose 20 ML VIAL. INJ PRN ×2 (10:21→10:26)
--- NOTE | 2020-07-19 12:05 | PDOC ---
[employer] PROGRESS NOTE Date of Service DOS: DATE: 07/19/20 TIME: 12:04 Chief Complaint Chief Complaint 1. acute metabolic encephalopathy, with altered mentation, new, already improving 2. hypoxic respiratory failure, improved 3. sepsis, 4. recent Septic shock, 5. Acute kidney injury, vasomotor nephropathy on CKD 4 History of Present Illness History of Present Illness 07/19: Patient seen and evaluated. Afebrile, currently breathing on room air. Bronchoscopy planned for today. Continue IV antibiotics, per ID. Charts and labs reviewed, discussed with RN. 07/18/2020 - pt seen and examined at bedside - discussed pt care with RN - pt on IV Abx - discussed bronchoscopy with pt which is planned to happen tomorrow - pt asked for continuation of home med Klonopin 1mg PO BID Vitals/I&O Vitals/I&O: Vital Signs Date Time Temp Pulse Resp B/P (MAP) Pulse Ox O2 Delivery O2 Flow Rate FiO2 07/19/20 11:41 71 18 131/61 100 Room Air 07/19/20 11:27 2 07/19/20 11:12 98.0 98.0 Physical Exam Physical Exam: GENERAL: Alert female, not in any distress. eating again HEENT: Both pupils are round and reacting. No conjunctival lesion, no lesion in the mouth. NECK: Supple, no JVP, no lymphadenopathy. LUNGS: Clear to auscultation and percussion. HEART: S1, S2 regular. ABDOMEN: Soft, nontender, no organomegaly. PEG clean EXTREMITIES: No edema, cyanosis. Dressing over clean scab LLE SKIN: Unremarkable. NEUROLOGIC: The patient is alert, awake and appropriate. Does have poor memory, but she is able to move all the extremities. General: Alert, Cooperative, No acute distress Heart: Regular rate Lungs: Clear Abdomen: Normal bowel sounds, Soft Extremities: No clubbing Skin: No breakdown Labs Labs: Laboratory Tests Test 07/19/20 07:35 Sodium Level 142 mmol/L (136-145) Potassium Level 3.8 mmol/L (3.5-5.1) Chloride Level 110 mmol/L (98-107) Carbon Dioxide Level 19 mmol/L (21-32) Anion Gap 13 (6-14) Blood Urea Nitrogen 12 mg/dL (7-20) Creatinine 1.4 mg/dL (0.6-1.0) Estimated GFR (Cockcroft-Gault) 36.8 Glucose Level 78 mg/dL (70-99) Calcium Level 8.1 mg/dL (8.5-10.1) Magnesium Level 2.1 mg/dL (1.8-2.4) Assessment and Plan Assessmemt and Plan Problems Medical Problems: (1) AMS (altered mental status) Status: Acute (2) Leukocytosis Status: Acute Comment Review of Relevant I have reviewed the following items isreal (where applicable) has been applied. Medications: Current Medications Medications (Trade) Dose Ordered Sig/Sumit Route PRN Reason Start Time Stop Time Status Last Admin Dose Admin Albuterol Sulfate (Ventolin Neb Soln) 2.5 mg PRN 1X PRN NEB SHORTNESS OF BREATH 07/19/20 08:00 07/20/20 07:59 07/19/20 10:25 Lidocaine HCl (Lidocaine 2% Viscous) 100 ml PRN 1X PRN MM FOR PROCEDURE 07/19/20 08:00 07/20/20 07:59 07/19/20 10:20 Lidocaine HCl (Lidocaine 1% 20ml Vial) 20 ml PRN 1X PRN INJ SEE COMMENTS 07/19/20 08:00 07/20/20 07:59 07/19/20 10:26 Lidocaine HCl (Lidocaine 4% Topical) 50 ml PRN 1X PRN MM SEE COMMENTS 07/19/20 08:00 07/20/20 07:59 07/19/20 10:25 Magnesium Sulfate 50 ml @ 25 mls/hr 1X ONCE IV 07/18/20 15:00 07/18/20 16:59 DC 07/18/20 15:52 Potassium Chloride (Klor-Con) 20 meq 1X ONCE PO 07/18/20 15:00 07/18/20 15:01 DC 07/18/20 16:03 Justifications for Admission Other Justification acute electrolyte imbalance, metabolic encephalopathy, sepsis KRISSY JUNIOR MD Jul 19, 2020 12:05
[2020-07-19] MEDS: ARIPiprazole 5 MG TABLET PO SCH (12:40)
[2020-07-19] MEDS: buPROPion XL 150 MG TAB.ER.24H. PO SCH (12:40)
[2020-07-19] MEDS: SODIUM BICARBONATE 650 MG TABLET. PO SCH ×3 (12:41→20:46)
[2020-07-19] MEDS: CALCIUM CARB/VIT D3 500/200 TABLET. PO SCH (12:41)
[2020-07-19] MEDS: ASPIRIN ENTERIC COATED 81 MG TABLET.DR. PO SCH (12:41)
[2020-07-19] MEDS: clonazePAM 0.5 MG TABLET PO PRN ×2 (12:41→23:47)
[2020-07-19] MEDS: FUROSEMIDE 40 MG TABLET. PO SCH (12:42)
[2020-07-19] MEDS: MULTIVITAMIN with MINERAL TABLET. PO SCH (12:42)
[2020-07-19] MEDS: LACTOBACILLUS RHAMNOSUS GG 1 CAPSULE. PO SCH ×2 (12:42→20:46)
[2020-07-19] MEDS: CITALOPRAM 20 MG TABLET. PO SCH (12:42)
[2020-07-19] MEDS: FERROUS SULFATE 325 MG TABLET. PO SCH (12:42)
[2020-07-19] MEDS: PANTOPRAZOLE 40 MG TABLET.DR. PO SCH ×2 (12:43→17:27)
[2020-07-19] MEDS: POTASSIUM CHLORIDE 20 MEQ TABLET.ER. PO SCH (12:43)
[2020-07-19] MEDS: METOPROLOL TART IMMED RELEASE 25 MG TABLET. PO SCH ×2 (12:43→20:47)
[2020-07-19] MEDS: VITS A & D/LANOLIN TOPICAL OINTMENT 42GM TUBE. TP SCH ×2 (12:46→23:51)
[2020-07-19 13:01] VITALS: BP 135/68
--- NOTE | 2020-07-19 13:56 | NUR ---
1400 sodium bicarb non admin as pt just returned from procedure and received a.m. dose.
[2020-07-19 15:00] VITALS: BP 117/60
--- NOTE | 2020-07-19 15:49 | PDOC4 ---
PROCEDURE Procedure Procedure Bronchoscopy Findings No endobronchial lesion, BAL performed right lower lobe left lower lobe No complication CAROLINA CANNON MD Jul 19, 2020 15:49
--- NOTE | 2020-07-19 17:33 | OP ---
DATE OF SURGERY: 07/19/2020 ATTENDING PHYSICIAN: Dr. Chapman. PROCEDURE: Bronchoscopy, bronchoalveolar lavage, left and right lower lobes. INDICATIONS: The patient presented with abnormal CT chest revealing multiple findings including tree-in-bud formation. Had undergone a diagnostic bronchoscopy, rule out atypical infection such as Mycobacterium avium complex. Risks, benefits, and alternatives reviewed with the patient. She consented. SEDATION: Please see Anesthesia's notes. DESCRIPTION OF PROCEDURE: Timeout was performed prior to sedation. Vital signs and O2 saturation were maintained within normal limits throughout the procedure. The bronchoscope was passed through the left naris. The vocal cords were identified moving bilaterally without any dysfunction. Vocal cords were anesthetized with a total of 5 mL of 4% lidocaine. The bronchoscope was passed through the vocal cords into the proximal trachea, which was normal. The distal trachea was likewise normal. The right and left segments and subsegments were all visualized. There was no endobronchial lesion. The scope was wedged into the left lower lobe segment and a lavage was performed, the return was brown in color. The scope was then wedged into the right lower lobe subsegment and a bronchoalveolar lavage was performed, the return was likewise brown in color. FINDINGS: 1. Normal vocal cords. 2. No endobronchial lesion. 3. No purulent material. 4. BAL performed. PLAN: We will await the BAL results. CAROLINA CANNON MD DR: BROCK/nts JOB#: [id number] / [id number]
[2020-07-19 19:00] VITALS: BP 138/78
[2020-07-19] MEDS: GABAPENTIN 400 MG CAPSULE. PO SCH (20:46)
[2020-07-19] MEDS: MIRTAZAPINE 15 MG TABLET PO SCH (20:47)
[2020-07-19 23:05] VITALS: BP 98/56
[2020-07-20 03:00] VITALS: BP 121/67
[2020-07-20] MEDS: PIPERACILLIN/TAZOBACTAM 3.375 GM in IV NORMAL SALINE 50ML 50 ML IV SCH (05:39)
[2020-07-20] MEDS: IV DEXTROSE 5 %-0.45 % NACL 1,000 ML IV SCH ×2 (05:43→11:30)
[2020-07-20 07:00] VITALS: BP 103/48
[2020-07-20 07:41] LABS: CALCIUM 7.9 mg/dL (8.5-10.1); CREATININE 1.4 mg/dL (0.6-1.0); GFR 36.8; POTASSIUM 3.7 mmol/L (3.5-5.1)
[2020-07-20] MEDS: CALCIUM CARB/VIT D3 500/200 TABLET. PO SCH (08:42)
[2020-07-20] MEDS: LACTOBACILLUS RHAMNOSUS GG 1 CAPSULE. PO SCH ×2 (08:43→21:31)
[2020-07-20] MEDS: PANTOPRAZOLE 40 MG TABLET.DR. PO SCH ×2 (08:43→17:19)
[2020-07-20] MEDS: buPROPion XL 150 MG TAB.ER.24H. PO SCH (08:43)
[2020-07-20] MEDS: SODIUM BICARBONATE 650 MG TABLET. PO SCH ×3 (08:43→21:31)
[2020-07-20] MEDS: ASPIRIN ENTERIC COATED 81 MG TABLET.DR. PO SCH (08:43)
[2020-07-20] MEDS: METOPROLOL TART IMMED RELEASE 25 MG TABLET. PO SCH ×2 (08:43→21:30)
[2020-07-20] MEDS: FERROUS SULFATE 325 MG TABLET. PO SCH (08:43)
[2020-07-20] MEDS: clonazePAM 0.5 MG TABLET PO PRN ×2 (08:43→21:31)
[2020-07-20] MEDS: POTASSIUM CHLORIDE 20 MEQ TABLET.ER. PO SCH (08:44)
[2020-07-20] MEDS: MULTIVITAMIN with MINERAL TABLET. PO SCH (08:44)
[2020-07-20] MEDS: FUROSEMIDE 40 MG TABLET. PO SCH (08:44)
[2020-07-20] MEDS: LIPASE/PROTEAS/AMYLAS 10/32/42 CAPSULE.DR. PO SCH ×3 (08:44→17:19)
[2020-07-20] MEDS: VITS A & D/LANOLIN TOPICAL OINTMENT 42GM TUBE. TP SCH ×2 (08:45→21:36)
[2020-07-20] MEDS: CITALOPRAM 20 MG TABLET. PO SCH (08:51)
--- NOTE | 2020-07-20 09:03 | PDOC ---
Infectious Disease Note Subjective Subjective Feeling well. No F/C/S/N/D/SOA/rash or pain Vital Sign Vital Signs Vital Signs Date Time Temp Pulse Resp B/P (MAP) Pulse Ox O2 Delivery O2 Flow Rate FiO2 07/20/20 08:43 67 103/48 07/20/20 07:00 97.4 18 97 Room Air 97.4 07/19/20 11:27 2 Physical Exam PHYSICAL EXAM GENERAL: Alert female, not in any distress. eating again HEENT: Both pupils are round and reacting. No conjunctival lesion, no lesion in the mouth. NECK: Supple, no JVP, no lymphadenopathy. LUNGS: Clear to auscultation and percussion. HEART: S1, S2 regular. ABDOMEN: Soft, nontender, no organomegaly. PEG clean EXTREMITIES: No edema, cyanosis. Dressing over clean scab LLE SKIN: Unremarkable. NEUROLOGIC: The patient is alert, awake and appropriate. Does have poor memory, but she is able to move all the extremities. Labs Lab Laboratory Tests Test 07/20/20 06:15 Sodium Level 140 mmol/L (136-145) Potassium Level 3.7 mmol/L (3.5-5.1) Chloride Level 110 mmol/L (98-107) Carbon Dioxide Level 21 mmol/L (21-32) Anion Gap 9 (6-14) Blood Urea Nitrogen 11 mg/dL (7-20) Creatinine 1.4 mg/dL (0.6-1.0) Estimated GFR (Cockcroft-Gault) 36.8 Glucose Level 62 mg/dL (70-99) Calcium Level 7.9 mg/dL (8.5-10.1) Micro Microbiology 07/14/20 Blood Culture - Preliminary, Resulted NO GROWTH AFTER 1 DAY Objective Assessment 1. Fever. 2. Leukocytosis. 3. Pulmonary infiltrate with a tree-in-bud opacity as well as a possible cavitation. 4. Abnormal urinalysis, although no other urinary symptoms. 5. Debility and self-care problem. 6. Suspected mild dementia. Plan Plan of Care change Zosyn/Zyvox,to po augmentin, f/u with Dr Mendoza , and will be happy to see if needed supportive care and we will talk to the DREW ASTORGA MD Jul 20, 2020 09:02
[2020-07-20] MEDS: ARIPiprazole 5 MG TABLET PO SCH (09:55)
--- NOTE | 2020-07-20 10:33 | PDOC ---
DATE OF SERVICE DATE: 07/20/20 TIME: 10:33 SUBJECTIVE ROS Feeling well, no complaints OBJECTIVE Vital Signs Vital Signs Date Time Temp Pulse Resp B/P (MAP) Pulse Ox O2 Delivery O2 Flow Rate FiO2 07/20/20 08:43 67 103/48 07/20/20 07:00 97.4 18 97 Room Air 97.4 07/19/20 11:27 2 I & 0 Intake and Output 07/20/20 07:00 Intake Total 2000 ml Output Total 300 ml Balance 1700 ml Intake Oral 600 ml IV Total 1400 ml Output Urine Total 300 ml # Voids 3 # Bowel Movements 2 PHYSICAL EXAM Physical Exam GENERAL:NAD HEENT: OM moist NECK: Supple, . LUNGS: Clear to auscultation HEART: S1, S2 regular. ABDOMEN: Soft, nontender, no organomegaly. PEG + EXTREMITIES: No edema, cyanosis. SKIN: Unremarkable. NEUROLOGIC: alert, awake and appropriate Munoz + DIAGNOSIS/ASSESSMENT Assessment & Plan CKD Stage 3B-Cr stable at baseline . Supportive care , avoid nephrotoxins Fever/Leukocytosis. Pulmonary infiltrate with a tree-in-bud opacity as well as a possible cavitation- Bronchoscopy today Abnormal urinalysis, ID following Severe PEM - per Primary DC per primary/ID COMMENT/RELEVANT DATA Meds Current Medications Medications (Trade) Dose Ordered Sig/Sumit Start Time Stop Time Status Last Admin Dose Admin Acetaminophen (Tylenol) 650 mg PRN Q4HRS PRN 07/15/20 13:30 Cancel Al Hydroxide/Mg Hydroxide (Mylanta Plus Xs) 30 ml PRN DAILY PRN 07/15/20 11:30 Albuterol Sulfate (Ventolin Neb Soln) 2.5 mg PRN 1X PRN 07/19/20 08:00 07/20/20 07:59 DC 07/19/20 10:25 2.5 MG Amoxicillin/ Clavulanate Potassium (Augmentin 875/ 125mg) 1 tab BID 07/20/20 21:00 UNV Amylase/Lipase/ Protease (Zenpep 10,000) 3 cap TIDWMEALS 07/15/20 17:00 07/20/20 08:44 3 CAP Aripiprazole (Abilify) 30 mg DAILY 07/15/20 14:00 07/20/20 09:55 30 MG Aspirin (Ecotrin) 81 mg DAILYWBKFT 07/15/20 14:00 07/20/20 08:43 81 MG Bupropion HCl (Wellbutrin Xl) 300 mg DAILY 07/15/20 14:00 07/20/20 08:43 300 MG Calcium/Vitamin D (Oscal D 500mg/ 200uts) 2 tab DAILY 07/15/20 14:00 07/20/20 08:42 2 TAB Citalopram Hydrobromide (CeleXA) 20 mg DAILY 07/15/20 14:00 07/20/20 08:51 20 MG Clonazepam (KlonoPIN) 1 mg BID PRN 07/18/20 11:15 07/20/20 08:43 1 MG Daptomycin 350 mg/ Sodium Chloride 50 ml @ 100 mls/hr Q48H 07/17/20 10:00 07/18/20 13:26 DC 07/17/20 15:09 100 MLS/HR Dextrose/Sodium Chloride 1,000 ml @ 75 mls/hr [id number] 07/15/20 11:30 07/20/20 05:43 75 MLS/HR Docusate Sodium (Colace) 100 mg PRN BID PRN 07/15/20 11:30 Enoxaparin Sodium (Lovenox 30mg Syringe) 30 mg Q24H 07/15/20 12:00 07/17/20 11:13 DC 07/16/20 11:58 30 MG Epinephrine HCl (Adrenalin) 1 mg STK-MED ONCE 07/19/20 07:36 07/19/20 07:37 DC Ergocalciferol (Vitamin D2) 50,000 unit Fr 07/16/20 09:00 07/16/20 08:06 50,000 UNIT Ferrous Sulfate (Feosol) 325 mg DAILY 07/15/20 14:00 07/20/20 08:43 325 MG Furosemide (Lasix) 40 mg DAILY 07/15/20 14:00 07/20/20 08:44 40 MG Gabapentin (Neurontin) 1,200 mg QHS 07/15/20 21:00 07/19/20 20:46 1,200 MG Guaifenesin (Robitussin) 200 mg PRN Q4HRS PRN 07/15/20 11:30 Lactobacillus Rhamnosus (Culturelle) 1 cap BID 07/16/20 21:00 07/20/20 08:43 1 CAP Levothyroxine Sodium (Synthroid) 100 mcg DAILY06 07/16/20 06:00 07/19/20 12:42 100 MCG Lidocaine HCl (Lidocaine 1% 20ml Vial) 20 ml STK-MED ONCE 07/19/20 09:57 07/19/20 09:57 DC Lidocaine HCl (Lidocaine 2% Viscous) 100 ml STK-MED ONCE 07/19/20 07:37 07/19/20 07:37 DC Lidocaine HCl (Lidocaine 4% Topical) 50 ml STK-MED ONCE 07/19/20 07:37 07/19/20 07:37 DC Linezolid/Dextrose 300 ml @ 300 mls/hr Q12HR 07/16/20 09:00 07/20/20 10:29 DC 07/20/20 08:40 300 MLS/HR Magnesium Sulfate 50 ml @ 25 mls/hr 1X ONCE 07/18/20 15:00 07/18/20 16:59 DC 07/18/20 15:52 25 MLS/HR Metoprolol Tartrate (Lopressor) 25 mg BID 07/15/20 14:00 07/20/20 08:43 25 MG Mirtazapine (Remeron) 30 mg QHS 07/15/20 21:00 07/19/20 20:47 30 MG Morphine Sulfate (Morphine Sulfate) 4 mg PRN Q2HR PRN 07/14/20 21:15 07/15/20 21:14 DC Multivitamins (Thera M Plus) 1 tab DAILY 07/15/20 14:00 07/20/20 08:44 1 TAB Non-Formulary Medication (Selenium ) 0.5 cap DAILY 07/16/20 09:00 UNV Ondansetron HCl (Zofran Odt) 4 mg PRN Q8HRS PRN 07/19/20 05:45 Ondansetron HCl (Zofran) 4 mg PRN Q4HRS PRN 07/15/20 11:30 07/16/20 09:08 4 MG Pantoprazole Sodium (Protonix) 40 mg BIDAC 07/15/20 16:30 07/20/20 08:43 40 MG Piperacillin Sod/ Tazobactam Sod (Zosyn Per Pharmacy) 1 each PRN DAILY PRN 07/15/20 09:00 Piperacillin Sod/ Tazobactam Sod 2.25 gm/Sodium Chloride 50 ml @ 100 mls/hr Q6HRS 07/15/20 09:00 07/15/20 11:27 DC 07/15/20 09:29 100 MLS/HR Piperacillin Sod/ Tazobactam Sod 3.375 gm/Sodium Chloride 50 ml @ 100 mls/hr Q6HRS 07/15/20 12:00 07/20/20 10:29 DC 07/20/20 05:39 100 MLS/HR Potassium Chloride (Klor-Con) 20 meq 1X ONCE 07/18/20 15:00 07/18/20 15:01 DC 07/18/20 16:03 20 MEQ Prednisone (Prednisone) 30 mg DAILY 07/20/20 11:00 Ringer's Solution 1,000 ml @ 75 mls/hr 1X ONCE 07/19/20 08:45 07/19/20 22:04 DC Senna/Docusate Sodium (Senna Plus) 2 tab PRN BID PRN 07/15/20 13:30 Sodium Monofluorophosphate (Fleet Adult) 133 ml PRN DAILY PRN 07/15/20 11:30 Sodium Bicarbonate (Sodium Bicarbonate) 1,300 mg TID 07/15/20 14:00 07/20/20 08:43 1,300 MG Sodium Chloride (Normal Saline Flush) 3 ml QSHIFT PRN 07/15/20 11:30 Sodium Phosphate 15 mmol/Sodium Chloride 105 ml @ 105 mls/hr 1X ONCE 07/17/20 16:30 07/17/20 17:29 DC 07/17/20 19:14 105 MLS/HR Vancomycin HCl 250 ml @ 250 mls/hr 1X ONCE 07/14/20 20:45 07/14/20 21:44 DC 07/15/20 01:52 250 MLS/HR Vitamin A/Vitamin D (Vitamin A & D Ointment) 1 uziel BID 07/15/20 21:00 07/20/20 08:45 1 UZIEL Lab Laboratory Tests Test 07/20/20 06:15 Sodium Level 140 mmol/L (136-145) Potassium Level 3.7 mmol/L (3.5-5.1) Chloride Level 110 mmol/L (98-107) Carbon Dioxide Level 21 mmol/L (21-32) Anion Gap 9 (6-14) Blood Urea Nitrogen 11 mg/dL (7-20) Creatinine 1.4 mg/dL (0.6-1.0) Estimated GFR (Cockcroft-Gault) 36.8 Glucose Level 62 mg/dL (70-99) Calcium Level 7.9 mg/dL (8.5-10.1) Results All relevant outside records, renal labs, imaging studies, telemetry/EKG's were reviewed. Justicifation of Admission Dx: Justifications for Admission: Justification of Admission Dx: Yes ELEANOR MAHAN MD Jul 20, 2020 10:33
--- NOTE | 2020-07-20 10:33 | PDOC ---
PULMONARY PROGRESS NOTES DATE: 07/20/20 TIME: 10:31 Subjective Remains on Room air Denies any shortness of breath, or cough Afebrile overnight Vitals Vital Signs Date Time Temp Pulse Resp B/P (MAP) Pulse Ox O2 Delivery O2 Flow Rate FiO2 07/20/20 08:43 67 103/48 07/20/20 07:00 97.4 18 97 Room Air 97.4 07/19/20 11:27 2 ROS: No Nausea, No Chest Pain, No Abdominal Pain, No Increase Cough General: Alert, Oriented X4 Lungs: Clear Cardiovascular: S1, S2 Abdomen: Soft Neuro Exam: Alert, Oriented Extremities: No Edema Skin: Warm, Dry Labs Laboratory Tests Test 07/19/20 07:35 07/20/20 06:15 Sodium Level 142 mmol/L (136-145) 140 mmol/L (136-145) Potassium Level 3.8 mmol/L (3.5-5.1) 3.7 mmol/L (3.5-5.1) Chloride Level 110 mmol/L (98-107) 110 mmol/L (98-107) Carbon Dioxide Level 19 mmol/L (21-32) 21 mmol/L (21-32) Anion Gap 13 (6-14) 9 (6-14) Blood Urea Nitrogen 12 mg/dL (7-20) 11 mg/dL (7-20) Creatinine 1.4 mg/dL (0.6-1.0) 1.4 mg/dL (0.6-1.0) Estimated GFR (Cockcroft-Gault) 36.8 36.8 Glucose Level 78 mg/dL (70-99) 62 mg/dL (70-99) Calcium Level 8.1 mg/dL (8.5-10.1) 7.9 mg/dL (8.5-10.1) Magnesium Level 2.1 mg/dL (1.8-2.4) Laboratory Tests Test 07/20/20 06:15 Sodium Level 140 mmol/L (136-145) Potassium Level 3.7 mmol/L (3.5-5.1) Chloride Level 110 mmol/L (98-107) Carbon Dioxide Level 21 mmol/L (21-32) Anion Gap 9 (6-14) Blood Urea Nitrogen 11 mg/dL (7-20) Creatinine 1.4 mg/dL (0.6-1.0) Estimated GFR (Cockcroft-Gault) 36.8 Glucose Level 62 mg/dL (70-99) Calcium Level 7.9 mg/dL (8.5-10.1) Medications Active Scripts Medications Dose Route/Sig Max Daily Dose Days Date Category Cephalexin 250 Mg Capsule 500 Mg PO TID 07/06/20 Rx Metoprolol Tartrate 25 Mg Tablet 25 Mg PO BID 07/06/20 Rx Gabapentin (Gabapentin) 400 Mg Capsule 1,200 Mg PO QHS 30 07/06/20 Rx Aspirin Ec (Aspirin) 81 Mg Tablet. 81 Mg PO DAILYWBKFT 07/06/20 Rx Selenium 200 Mcg Capsule 0.5 Cap PO DAILY 30 07/01/20 Reported Marcia Stewart 36,000 Units Capsule (Lipase/Protease/Amylase) 1 Each Capsule. 1 Each PO TIDAC 07/01/20 Reported Zofran (Ondansetron Hcl) 4 Mg Tablet 1 Tab PO Q8HRS 07/01/20 Reported Mirtazapine 30 Mg Tablet 1 Tab PO QHS 07/01/20 Reported Levothyroxine (Levothyroxine Sodium) 100 Mcg Capsule 100 Mcg PO DAILY 07/01/20 Reported Ferrous Sulfate 325 Mg Tablet 1 Tab PO DAILY 07/01/20 Reported Vitamin D2 (Ergocalciferol (Vitamin D2)) 1,250 Mcg Capsule 1,250 Mcg PO DAILY 07/01/20 Reported Clonazepam 1 Mg Tablet 1 Mg PO BID 07/01/20 Reported Wellbutrin Xl (Bupropion Hcl) 300 Mg Tab.er.24h 1 Tab PO DAILY 07/01/20 Reported Abilify (Aripiprazole) 30 Mg Tablet 1 Tab PO DAILY 30 07/01/20 Reported Tylenol (Acetaminophen) 325 Mg Tablet 650 Mg PO PRN Q4HRS PRN 30 09/17/18 Rx Furosemide 40 Mg Tablet 40 Mg PO DAILY 30 09/17/18 Rx Senna-Time S Tablet (Sennosides/Docusate Sodium) 1 Each Tablet 2 Tab PO PRN BID PRN 30 09/17/18 Rx Calcium + Vitamin D Tablet (Calcium Carbonate/Vitamin D3) 1 Each Tablet 2 Each PO DAILY 09/14/18 Reported Multivitamins (Multivitamin) 1 Each Tablet 1 Tab PO DAILY 09/14/18 Reported Sodium Bicarbonate 650 Mg Tablet 2 Tab PO TID 09/14/18 Reported Omeprazole 40 Mg Capsule.dr 40 Mg PO BID 10/13/13 Reported Citalopram Hbr (Citalopram Hydrobromide) 40 Mg Tablet 20 Mg PO DAILY 10/13/13 Reported Impression . IMPRESSION: 1. Abnormal chest x-ray, abnormal CT chest, revealing several findings consolidation left lower lobe, nodular infiltrates, tree-in-bud opacities. 2. Leukocytosis 3. Mild chronic kidney disease. 4. Hypernatremia per PCP. 5. Mildly increased troponin level. 6. Left lower lobe pneumonia with small effusion Discussion reviewed CT chest, discussed with Dr. Montesinos, infectious disease service. We will proceed with diagnostic bronchoscopy, rule out the possibility of nontuberculous Mycobacterium, MAC. Impression CT chest: 1. Consolidated infiltrate with pleural effusion in the left lower lobe with scattered patchy nodular, tree-in-bud pattern opacities as well as patchy ground glass nodules seen in both lungs. A 1.2 cm nodule in the left apex with questionable cavitation is also present. Infectious etiology is favored. Given cavitary nodule, question of septic emboli is raised. Correlate clinically. Short-term interval follow-up CT chest after appropriate therapy may be obtained to evaluate interval resolution. Plan . S/P bronchoscopy, gram stain NEG, Follow BAL-- NGTD Follow cultures-- NGTD Follow ID recommendations in regards to antibiotics-- switched to po augmentin start steroids to cover for BOOP Follow nephrology recommendations Physical therapy/Occupational Therapy/Speech therapy Social work for DC planning DVT/GI prophylaxis D/W CAROLINA CARABALLO MD Jul 20, 2020 10:33
[2020-07-20 11:00] VITALS: BP 114/63
[2020-07-20] MEDS: predniSONE 10 MG TABLET PO SCH (12:32)
[2020-07-20 14:50] VITALS: BP 139/72
--- NOTE | 2020-07-20 14:50 | NUR ---
Wound/Ostomy Care Wound Type/Assessment: Pt seen per wound care follow up. See wound assessment. Pt has a stage III with DTI to buttocks/coccyx. DTI to back, blister to the left posterior thigh, and skin tears to RLE are resolved. Wounds cleansed, assessed, and redressed. The toes are scabbed as well. Pt has DTI to left heel. Treatment Recommendations/Plan: Recommendations for foam dressings to the DTI's on the back and skin tears to RLE. Skin prep to the left posterior thigh, and A&D ointment to the coccyx wound with a foam to protect it from bed varghese. Skin prep and foam to left heel. Pt should remain without brief while in bed. Recommending turning every 2 hours using wedge. Education provided: Pt educated on dressing changes, PU treatment and management. Offloading surface/device: Pt is on a P-500 bed at this time and has a wheelchair cushion. Heel medix boots ordered for this patient as well. Recommended Referrals/Tests: N/A Discharge Recommendations for dressings: Dressing change instructions left in room. No other wounds noted. Pt turned to right side at this time and then encouraged to turn to left or right side frequently. Bed lowered and call light in reach. Wound care will follow up on 07/27/20.
--- NOTE | 2020-07-20 16:21 | PDOC ---
[employer] PROGRESS NOTE Date of Service DOS: DATE: 07/20/20 TIME: 16:18 Chief Complaint Chief Complaint 1. acute metabolic encephalopathy, with altered mentation, new, already improving 2. hypoxic respiratory failure, improved 3. sepsis, 4. recent Septic shock, 5. Acute kidney injury, vasomotor nephropathy on CKD 4 History of Present Illness History of Present Illness 07/20: Patient seen s/p bronchoscopy. Report reviewed, normal findings on bronch. Await BAL results. She is afebrile, denies chest pain or SOB. Continue current antibiotic regimen, per ID. 07/19: Patient seen and evaluated. Afebrile, currently breathing on room air. Bronchoscopy planned for today. Continue IV antibiotics, per ID. Charts and labs reviewed, discussed with RN. 07/18/2020 - pt seen and examined at bedside - discussed pt care with RN - pt on IV Abx - discussed bronchoscopy with pt which is planned to happen tomorrow - pt asked for continuation of home med Klonopin 1mg PO BID Vitals/I&O Vitals/I&O: Vital Signs Date Time Temp Pulse Resp B/P (MAP) Pulse Ox O2 Delivery O2 Flow Rate FiO2 07/20/20 14:50 97.5 72 19 139/72 (94) 96 Room Air 97.5 07/19/20 11:27 2 I & O 07/19/20 07/19/20 07/20/20 15:00 23:00 07:00 Intake Total 500 ml 1500 ml Output Total 300 ml Balance 500 ml 1200 ml Physical Exam Physical Exam: GENERAL: Alert female, not in any distress. eating again HEENT: Both pupils are round and reacting. No conjunctival lesion, no lesion in the mouth. NECK: Supple, no JVP, no lymphadenopathy. LUNGS: Clear to auscultation and percussion. HEART: S1, S2 regular. ABDOMEN: Soft, nontender, no organomegaly. PEG clean EXTREMITIES: No edema, cyanosis. Dressing over clean scab LLE SKIN: Unremarkable. NEUROLOGIC: The patient is alert, awake and appropriate. Does have poor memory, but she is able to move all the extremities. General: Alert, Cooperative, No acute distress Heart: Regular rate Lungs: Clear Abdomen: Normal bowel sounds, Soft Extremities: No clubbing Skin: No breakdown Labs Labs: Laboratory Tests Test 07/20/20 06:15 Sodium Level 140 mmol/L (136-145) Potassium Level 3.7 mmol/L (3.5-5.1) Chloride Level 110 mmol/L (98-107) Carbon Dioxide Level 21 mmol/L (21-32) Anion Gap 9 (6-14) Blood Urea Nitrogen 11 mg/dL (7-20) Creatinine 1.4 mg/dL (0.6-1.0) Estimated GFR (Cockcroft-Gault) 36.8 Glucose Level 62 mg/dL (70-99) Calcium Level 7.9 mg/dL (8.5-10.1) Assessment and Plan Assessmemt and Plan Problems Medical Problems: (1) AMS (altered mental status) Status: Acute (2) Leukocytosis Status: Acute Comment Review of Relevant I have reviewed the following items isreal (where applicable) has been applied. Medications: Current Medications Medications (Trade) Dose Ordered Sig/Sumit Route PRN Reason Start Time Stop Time Status Last Admin Dose Admin Prednisone (Prednisone) 30 mg DAILY PO 07/20/20 11:00 07/20/20 12:32 Justifications for Admission Other Justification acute electrolyte imbalance, metabolic encephalopathy, sepsis KRISSY JUNIOR MD Jul 20, 2020 16:21
--- NOTE | 2020-07-20 17:13 | PATHOLOGY ---
Note [facility] Accession Number: [id number] TESTS RESULT FLAG UNITS REF RANGE LAB Clinician Provided Cytology Information No. of containers..01 Other (Miscellaneous) Source: RIGHT BAL DIAGNOSIS: RIGHT BAL NEGATIVE FOR MALIGNANT CELLS. NORMAL BRONCHIAL CELLS ARE PRESENT. PULMONARY MACROPHAGES ARE PRESENT. THIS INTERPRETATION INCLUDES EVALUATION OF A CELL BLOCK. SILVER METHENAMINE STAINED SMEARS ARE NEGATIVE FOR PNEUMOCYSTIS JIROVECI. NO FUNGAL ORGANISMS ARE PRESENT. Signed out by: 02 Tommy Chris MD, Pathologist NPI- [id number] Performed by: Neela Yancey, Mba Intern ([facility]) Gross description: 01 8ML, RED, 1TP 1CB /LCS 07/20/2020 0633 Local FLAG LEGEND: L-Low Normal,H-High Normal,LL-Alert Low,HH-Alert High <-Panic Low,>-Panic High,A-Abnormal,AA-Critical Abnormal Performed at: [facility] [place] [address] [place] [address] Mauirce Knox MD, 02 [facility] [address] [place] [address] Tommy Chris MD, Specimen Comment: A courtesy copy of this report has been sent to [phone], [phone] Specimen Comment: [id number] Specimen Comment: Report sent to DR CANNON / DR LILLY Performed at: 01 [facility] [address], [place], [place] [id number] MD Maurice Knox MD Phone: [phone]
--- NOTE | 2020-07-20 17:13 | PATHOLOGY ---
Note [facility] Accession Number: [id number] TESTS RESULT FLAG UNITS REF RANGE LAB Clinician Provided Cytology Information No. of containers..01 Other (Miscellaneous) Source: LEFT BAL DIAGNOSIS: LEFT BAL NEGATIVE FOR MALIGNANT CELLS. NORMAL BRONCHIAL CELLS ARE PRESENT. PULMONARY MACROPHAGES ARE PRESENT. THIS INTERPRETATION INCLUDES EVALUATION OF A CELL BLOCK. SILVER METHENAMINE STAINED SMEARS ARE NEGATIVE FOR PNEUMOCYSTIS JIROVECI. NO FUNGAL ORGANISMS ARE PRESENT. Signed out by: 02 Tommy Chris MD, Pathologist NPI- [id number] Performed by: Neela Yancey, Prototype Deicer Assembler ([facility]) Gross description: 01 5ML, RED, 1TP 1CB /LCS 07/20/2020 0635 Local FLAG LEGEND: L-Low Normal,H-High Normal,LL-Alert Low,HH-Alert High <-Panic Low,>-Panic High,A-Abnormal,AA-Critical Abnormal Performed at: [employer] [facility] [address] [place] [address] Maurice Knox MD, 02 YKS [facility] [address] [place] [address] Tommy Chris MD, Specimen Comment: A courtesy copy of this report has been sent to [phone], [phone] Specimen Comment: [id number] Specimen Comment: Report sent to DR CANNON / DR LILLY Specimen Comment: A duplicate report has been generated due to demographic updates. Performed at: [address], [place], [place] [id number] MD Maurice Knox MD Phone: [phone]
[2020-07-20 19:00] VITALS: BP 130/66
[2020-07-20] MEDS: AMOXICILLIN/K CLAV 875/125MG TABLET. PO SCH (21:30)
[2020-07-20] MEDS: GABAPENTIN 400 MG CAPSULE. PO SCH (21:30)
[2020-07-20] MEDS: MIRTAZAPINE 15 MG TABLET PO SCH (21:31)
[2020-07-20 23:05] VITALS: BP 124/54
[2020-07-21 03:00] VITALS: BP 96/56
[2020-07-21] MEDS: LEVOTHYROXINE 100 MCG TABLET PO SCH (05:24)
[2020-07-21] MEDS: IV DEXTROSE 5 %-0.45 % NACL 1,000 ML IV SCH ×2 (05:24→19:01)
[2020-07-21 07:00] VITALS: BP 124/64
[2020-07-21] MEDS: ARIPiprazole 5 MG TABLET PO SCH (09:05)
[2020-07-21] MEDS: CALCIUM CARB/VIT D3 500/200 TABLET. PO SCH (09:06)
[2020-07-21] MEDS: SODIUM BICARBONATE 650 MG TABLET. PO SCH ×3 (09:06→20:35)
[2020-07-21] MEDS: LIPASE/PROTEAS/AMYLAS 10/32/42 CAPSULE.DR. PO SCH ×3 (09:06→16:18)
[2020-07-21] MEDS: FUROSEMIDE 40 MG TABLET. PO SCH (09:07)
[2020-07-21] MEDS: ASPIRIN ENTERIC COATED 81 MG TABLET.DR. PO SCH (09:07)
[2020-07-21] MEDS: AMOXICILLIN/K CLAV 875/125MG TABLET. PO SCH ×2 (09:07→20:36)
[2020-07-21] MEDS: METOPROLOL TART IMMED RELEASE 25 MG TABLET. PO SCH ×2 (09:07→20:36)
[2020-07-21] MEDS: predniSONE 10 MG TABLET PO SCH (09:07)
[2020-07-21] MEDS: LACTOBACILLUS RHAMNOSUS GG 1 CAPSULE. PO SCH ×2 (09:08→20:36)
[2020-07-21] MEDS: buPROPion XL 150 MG TAB.ER.24H. PO SCH (09:08)
[2020-07-21] MEDS: PANTOPRAZOLE 40 MG TABLET.DR. PO SCH ×2 (09:08→16:17)
[2020-07-21] MEDS: CITALOPRAM 20 MG TABLET. PO SCH (09:08)
[2020-07-21] MEDS: FERROUS SULFATE 325 MG TABLET. PO SCH (09:08)
[2020-07-21] MEDS: POTASSIUM CHLORIDE 20 MEQ TABLET.ER. PO SCH (09:08)
[2020-07-21] MEDS: MULTIVITAMIN with MINERAL TABLET. PO SCH (09:09)
--- NOTE | 2020-07-21 10:30 | PDOC ---
Infectious Disease Note Subjective Subjective Feeling well. No F/C/S/N/D/SOA/rash or pain Vital Sign Vital Signs Vital Signs Date Time Temp Pulse Resp B/P (MAP) Pulse Ox O2 Delivery O2 Flow Rate FiO2 07/21/20 09:07 50 124/64 07/21/20 07:00 97.6 16 97 Room Air 97.6 Physical Exam PHYSICAL EXAM GENERAL: Alert female, not in any distress. eating again HEENT: Both pupils are round and reacting. No conjunctival lesion, no lesion in the mouth. NECK: Supple, no JVP, no lymphadenopathy. LUNGS: Clear to auscultation and percussion. HEART: S1, S2 regular. ABDOMEN: Soft, nontender, no organomegaly. PEG clean EXTREMITIES: No edema, cyanosis. Dressing over clean scab LLE SKIN: Unremarkable. NEUROLOGIC: The patient is alert, awake and appropriate. Does have poor memory, but she is able to move all the extremities. Labs Micro Microbiology 07/14/20 Blood Culture - Preliminary, Resulted NO GROWTH AFTER 1 DAY Objective Assessment 1. Fever. 2. Leukocytosis. 3. Pulmonary infiltrate with a tree-in-bud opacity as well as a possible cavitation. 4. Abnormal urinalysis, although no other urinary symptoms. 5. Debility and self-care problem. 6. Suspected mild dementia. Plan Plan of Care po augmentin, f/u with Dr Mendoza , and will be happy to see if needed supportive care and we will talk to the DREW ASTORGA MD Jul 21, 2020 10:30
[2020-07-21] MEDS: clonazePAM 0.5 MG TABLET PO PRN ×2 (10:53→22:47)
[2020-07-21 11:00] VITALS: BP 123/63
--- NOTE | 2020-07-21 12:15 | PDOC ---
PULMONARY PROGRESS NOTES DATE: 07/21/20 TIME: 12:14 Subjective Remains on Room air Denies any shortness of breath, or cough remains weak Afebrile overnight Vitals Vital Signs Date Time Temp Pulse Resp B/P (MAP) Pulse Ox O2 Delivery O2 Flow Rate FiO2 07/21/20 11:00 98.0 63 18 123/63 (83) 99 Room Air 98.0 ROS: No Nausea, No Chest Pain, No Abdominal Pain, No Increase Cough General: Alert, Oriented X4 Lungs: Clear Cardiovascular: S1, S2 Abdomen: Soft Neuro Exam: Alert, Oriented Extremities: No Edema Skin: Warm, Dry Labs Laboratory Tests Test 07/20/20 06:15 Sodium Level 140 mmol/L (136-145) Potassium Level 3.7 mmol/L (3.5-5.1) Chloride Level 110 mmol/L (98-107) Carbon Dioxide Level 21 mmol/L (21-32) Anion Gap 9 (6-14) Blood Urea Nitrogen 11 mg/dL (7-20) Creatinine 1.4 mg/dL (0.6-1.0) Estimated GFR (Cockcroft-Gault) 36.8 Glucose Level 62 mg/dL (70-99) Calcium Level 7.9 mg/dL (8.5-10.1) Medications Active Scripts Medications Dose Route/Sig Max Daily Dose Days Date Category Cephalexin 250 Mg Capsule 500 Mg PO TID 07/06/20 Rx Metoprolol Tartrate 25 Mg Tablet 25 Mg PO BID 07/06/20 Rx Gabapentin (Gabapentin) 400 Mg Capsule 1,200 Mg PO QHS 30 07/06/20 Rx Aspirin Ec (Aspirin) 81 Mg Tablet. 81 Mg PO DAILYWBKFT 07/06/20 Rx Selenium 200 Mcg Capsule 0.5 Cap PO DAILY 30 07/01/20 Reported Marcia Stewart 36,000 Units Capsule (Lipase/Protease/Amylase) 1 Each Capsule. 1 Each PO TIDAC 07/01/20 Reported Zofran (Ondansetron Hcl) 4 Mg Tablet 1 Tab PO Q8HRS 07/01/20 Reported Mirtazapine 30 Mg Tablet 1 Tab PO QHS 07/01/20 Reported Levothyroxine (Levothyroxine Sodium) 100 Mcg Capsule 100 Mcg PO DAILY 07/01/20 Reported Ferrous Sulfate 325 Mg Tablet 1 Tab PO DAILY 07/01/20 Reported Vitamin D2 (Ergocalciferol (Vitamin D2)) 1,250 Mcg Capsule 1,250 Mcg PO DAILY 07/01/20 Reported Clonazepam 1 Mg Tablet 1 Mg PO BID 07/01/20 Reported Wellbutrin Xl (Bupropion Hcl) 300 Mg Tab.er.24h 1 Tab PO DAILY 07/01/20 Reported Abilify (Aripiprazole) 30 Mg Tablet 1 Tab PO DAILY 30 07/01/20 Reported Tylenol (Acetaminophen) 325 Mg Tablet 650 Mg PO PRN Q4HRS PRN 30 09/17/18 Rx Furosemide 40 Mg Tablet 40 Mg PO DAILY 30 09/17/18 Rx Senna-Time S Tablet (Sennosides/Docusate Sodium) 1 Each Tablet 2 Tab PO PRN BID PRN 30 09/17/18 Rx Calcium + Vitamin D Tablet (Calcium Carbonate/Vitamin D3) 1 Each Tablet 2 Each PO DAILY 09/14/18 Reported Multivitamins (Multivitamin) 1 Each Tablet 1 Tab PO DAILY 09/14/18 Reported Sodium Bicarbonate 650 Mg Tablet 2 Tab PO TID 09/14/18 Reported Omeprazole 40 Mg Capsule.dr 40 Mg PO BID 10/13/13 Reported Citalopram Hbr (Citalopram Hydrobromide) 40 Mg Tablet 20 Mg PO DAILY 10/13/13 Reported Impression . IMPRESSION: 1. Abnormal chest x-ray, abnormal CT chest, revealing several findings consolidation left lower lobe, nodular infiltrates, tree-in-bud opacities. 2. Leukocytosis 3. Mild chronic kidney disease. 4. Hypernatremia per PCP. 5. Mildly increased troponin level. 6. Left lower lobe pneumonia with small effusion Discussion reviewed CT chest, discussed with Dr. Montesinos, infectious disease service. We will proceed with diagnostic bronchoscopy, rule out the possibility of nontuberculous Mycobacterium, MAC. Impression CT chest: 1. Consolidated infiltrate with pleural effusion in the left lower lobe with scattered patchy nodular, tree-in-bud pattern opacities as well as patchy ground glass nodules seen in both lungs. A 1.2 cm nodule in the left apex with questionable cavitation is also present. Infectious etiology is favored. Given cavitary nodule, question of septic emboli is raised. Correlate clinically. Short-term interval follow-up CT chest after appropriate therapy may be obtained to evaluate interval resolution. Plan . stable from respiratory standpoint remains on room air S/P bronchoscopy, gram stain NEG, Follow BAL-- NEG Follow cultures-- NGTD Follow ID recommendations in regards to antibiotics-- continue full course of augmentin Continue steroids with slow taper Follow nephrology recommendations Physical therapy/Occupational Therapy/Speech therapy Social work for DC planning DVT/GI prophylaxis D/W RN OK to D/C today from our standpoint-- f/U in office in August CAROLINA CANNON MD Jul 21, 2020 12:15
[2020-07-21] MEDS: VITS A & D/LANOLIN TOPICAL OINTMENT 42GM TUBE. TP SCH ×2 (12:24→20:36)
--- NOTE | 2020-07-21 12:57 | PDOC ---
DATE OF SERVICE DATE: 07/21/20 TIME: 12:56 SUBJECTIVE ROS no complaints , propped up in bed. getting ready to eat lunch OBJECTIVE Vital Signs Vital Signs Date Time Temp Pulse Resp B/P (MAP) Pulse Ox O2 Delivery O2 Flow Rate FiO2 07/21/20 11:00 98.0 63 18 123/63 (83) 99 Room Air 98.0 I & 0 Intake and Output 07/21/20 07:00 Intake Total 2220 ml Balance 2220 ml Intake Oral 1220 ml IV Total 1000 ml # Voids 3 # Bowel Movements 2 PHYSICAL EXAM Physical Exam GENERAL:NAD HEENT: OM moist NECK: Supple, . LUNGS: Clear to auscultation HEART: S1, S2 regular. ABDOMEN: Soft, nontender, no organomegaly. PEG + EXTREMITIES: No edema, cyanosis. SKIN: Unremarkable. NEUROLOGIC: alert, awake and appropriate Munoz + DIAGNOSIS/ASSESSMENT Assessment & Plan CKD Stage 3B-Cr stable at baseline . Supportive care , avoid nephrotoxins Fever/Leukocytosis. Pulmonary infiltrate with a tree-in-bud opacity as well as a possible cavitation- Bronchoscopy today Abnormal urinalysis, ID following Severe PEM - per Primary COMMENT/RELEVANT DATA Meds Current Medications Medications (Trade) Dose Ordered Sig/Sumit Start Time Stop Time Status Last Admin Dose Admin Acetaminophen (Tylenol) 650 mg PRN Q4HRS PRN 07/15/20 13:30 Cancel Al Hydroxide/Mg Hydroxide (Mylanta Plus Xs) 30 ml PRN DAILY PRN 07/15/20 11:30 Albuterol Sulfate (Ventolin Neb Soln) 2.5 mg PRN 1X PRN 07/19/20 08:00 07/20/20 07:59 DC 07/19/20 10:25 2.5 MG Amoxicillin/ Clavulanate Potassium (Augmentin 875/ 125mg) 1 tab BID 07/20/20 21:00 07/21/20 09:07 1 TAB Amylase/Lipase/ Protease (Zenpep 10,000) 3 cap TIDWMEALS 07/15/20 17:00 07/21/20 12:24 3 CAP Aripiprazole (Abilify) 30 mg DAILY 07/15/20 14:00 07/21/20 09:05 30 MG Aspirin (Ecotrin) 81 mg DAILYWBKFT 07/15/20 14:00 07/21/20 09:07 81 MG Bupropion HCl (Wellbutrin Xl) 300 mg DAILY 07/15/20 14:00 07/21/20 09:08 300 MG Calcium/Vitamin D (Oscal D 500mg/ 200uts) 2 tab DAILY 07/15/20 14:00 07/21/20 09:06 2 TAB Citalopram Hydrobromide (CeleXA) 20 mg DAILY 07/15/20 14:00 07/21/20 09:08 20 MG Clonazepam (KlonoPIN) 1 mg PRN BID PRN 07/21/20 10:00 07/21/20 10:53 1 MG Daptomycin 350 mg/ Sodium Chloride 50 ml @ 100 mls/hr Q48H 07/17/20 10:00 07/18/20 13:26 DC 07/17/20 15:09 100 MLS/HR Dextrose/Sodium Chloride 1,000 ml @ 75 mls/hr [id number] 07/15/20 11:30 07/21/20 05:24 75 MLS/HR Docusate Sodium (Colace) 100 mg PRN BID PRN 07/15/20 11:30 Enoxaparin Sodium (Lovenox 30mg Syringe) 30 mg Q24H 07/15/20 12:00 07/17/20 11:13 DC 07/16/20 11:58 30 MG Epinephrine HCl (Adrenalin) 1 mg STK-MED ONCE 07/19/20 07:36 07/19/20 07:37 DC Ergocalciferol (Vitamin D2) 50,000 unit Fr 07/16/20 09:00 07/16/20 08:06 50,000 UNIT Ferrous Sulfate (Feosol) 325 mg DAILY 07/15/20 14:00 07/21/20 09:08 325 MG Furosemide (Lasix) 40 mg DAILY 07/15/20 14:00 07/21/20 09:07 40 MG Gabapentin (Neurontin) 1,200 mg QHS 07/15/20 21:00 07/20/20 21:30 1,200 MG Guaifenesin (Robitussin) 200 mg PRN Q4HRS PRN 07/15/20 11:30 Lactobacillus Rhamnosus (Culturelle) 1 cap BID 07/16/20 21:00 07/21/20 09:08 1 CAP Levothyroxine Sodium (Synthroid) 100 mcg DAILY06 07/16/20 06:00 07/21/20 05:24 100 MCG Lidocaine HCl (Lidocaine 1% 20ml Vial) 20 ml STK-MED ONCE 07/19/20 09:57 07/19/20 09:57 DC Lidocaine HCl (Lidocaine 2% Viscous) 100 ml STK-MED ONCE 07/19/20 07:37 07/19/20 07:37 DC Lidocaine HCl (Lidocaine 4% Topical) 50 ml STK-MED ONCE 07/19/20 07:37 07/19/20 07:37 DC Linezolid/Dextrose 300 ml @ 300 mls/hr Q12HR 07/16/20 09:00 07/20/20 10:29 DC 07/20/20 08:40 300 MLS/HR Magnesium Sulfate 50 ml @ 25 mls/hr 1X ONCE 07/18/20 15:00 07/18/20 16:59 DC 07/18/20 15:52 25 MLS/HR Metoprolol Tartrate (Lopressor) 25 mg BID 07/15/20 14:00 07/21/20 09:07 25 MG Mirtazapine (Remeron) 30 mg QHS 07/15/20 21:00 07/20/20 21:31 30 MG Morphine Sulfate (Morphine Sulfate) 4 mg PRN Q2HR PRN 07/14/20 21:15 07/15/20 21:14 DC Multivitamins (Thera M Plus) 1 tab DAILY 07/15/20 14:00 07/21/20 09:09 1 TAB Non-Formulary Medication (Selenium ) 0.5 cap DAILY 07/16/20 09:00 UNV Ondansetron HCl (Zofran Odt) 4 mg PRN Q8HRS PRN 07/19/20 05:45 Ondansetron HCl (Zofran) 4 mg PRN Q4HRS PRN 07/15/20 11:30 07/16/20 09:08 4 MG Pantoprazole Sodium (Protonix) 40 mg BIDAC 07/15/20 16:30 07/21/20 09:08 40 MG Piperacillin Sod/ Tazobactam Sod (Zosyn Per Pharmacy) 1 each PRN DAILY PRN 07/15/20 09:00 07/20/20 10:37 DC Piperacillin Sod/ Tazobactam Sod 2.25 gm/Sodium Chloride 50 ml @ 100 mls/hr Q6HRS 07/15/20 09:00 07/15/20 11:27 DC 07/15/20 09:29 100 MLS/HR Piperacillin Sod/ Tazobactam Sod 3.375 gm/Sodium Chloride 50 ml @ 100 mls/hr Q6HRS 07/15/20 12:00 07/20/20 10:29 DC 07/20/20 05:39 100 MLS/HR Potassium Chloride (Klor-Con) 20 meq 1X ONCE 07/18/20 15:00 07/18/20 15:01 DC 07/18/20 16:03 20 MEQ Prednisone (Prednisone) 30 mg DAILY 07/20/20 11:00 07/21/20 09:07 30 MG Propofol (Diprivan) 200 mg STK-MED ONCE 07/19/20 08:00 07/20/20 12:05 DC Ringer's Solution 1,000 ml @ 75 mls/hr 1X ONCE 07/19/20 08:45 07/19/20 22:04 DC Senna/Docusate Sodium (Senna Plus) 2 tab PRN BID PRN 07/15/20 13:30 Sodium Monofluorophosphate (Fleet Adult) 133 ml PRN DAILY PRN 07/15/20 11:30 Sodium Bicarbonate (Sodium Bicarbonate) 1,300 mg TID 07/15/20 14:00 07/21/20 09:06 1,300 MG Sodium Chloride (Normal Saline Flush) 3 ml QSHIFT PRN 07/15/20 11:30 Sodium Phosphate 15 mmol/Sodium Chloride 105 ml @ 105 mls/hr 1X ONCE 07/17/20 16:30 07/17/20 17:29 DC 07/17/20 19:14 105 MLS/HR Vancomycin HCl 250 ml @ 250 mls/hr 1X ONCE 07/14/20 20:45 07/14/20 21:44 DC 07/15/20 01:52 250 MLS/HR Vitamin A/Vitamin D (Vitamin A & D Ointment) 1 uziel BID 07/15/20 21:00 07/21/20 12:24 1 UZIEL Results All relevant outside records, renal labs, imaging studies, telemetry/EKG's were reviewed. Justicifation of Admission Dx: Justifications for Admission: Justification of Admission Dx: Yes ELEANOR MAHAN MD Jul 21, 2020 12:57
--- NOTE | 2020-07-21 14:09 | PDOC ---
[employer] PROGRESS NOTE Date of Service DOS: DATE: 07/21/20 TIME: 14:04 Chief Complaint Chief Complaint 1. acute metabolic encephalopathy, with altered mentation, new, already improving 2. hypoxic respiratory failure, improved 3. sepsis, 4. recent Septic shock, 5. Acute kidney injury, vasomotor nephropathy on CKD 4 History of Present Illness History of Present Illness 07/21: Patient seen and evaluated. Afebrile, breathing on room air. S/p BAL, gram stain negative with no growth on cultures to date. PT recommending SNU. Referral placed and pending acceptance. 07/20: Patient seen s/p bronchoscopy. Report reviewed, normal findings on bronch. Await BAL results. She is afebrile, denies chest pain or SOB. Continue current antibiotic regimen, per ID. 07/19: Patient seen and evaluated. Afebrile, currently breathing on room air. Bronchoscopy planned for today. Continue IV antibiotics, per ID. Charts and labs reviewed, discussed with RN. 07/18/2020 - pt seen and examined at bedside - discussed pt care with RN - pt on IV Abx - discussed bronchoscopy with pt which is planned to happen tomorrow - pt asked for continuation of home med Klonopin 1mg PO BID Vitals/I&O Vitals/I&O: Vital Signs Date Time Temp Pulse Resp B/P (MAP) Pulse Ox O2 Delivery O2 Flow Rate FiO2 07/21/20 11:00 98.0 63 18 123/63 (83) 99 Room Air 98.0 I & O 07/20/20 07/20/20 07/21/20 15:00 23:00 07:00 Intake Total 520 ml 200 ml 1500 ml Balance 520 ml 200 ml 1500 ml Physical Exam Physical Exam: GENERAL: Alert female, not in any distress. eating again HEENT: Both pupils are round and reacting. No conjunctival lesion, no lesion in the mouth. NECK: Supple, no JVP, no lymphadenopathy. LUNGS: Clear to auscultation and percussion. HEART: S1, S2 regular. ABDOMEN: Soft, nontender, no organomegaly. PEG clean EXTREMITIES: No edema, cyanosis. Dressing over clean scab LLE SKIN: Unremarkable. NEUROLOGIC: The patient is alert, awake and appropriate. Does have poor memory, but she is able to move all the extremities. General: Alert, Cooperative, No acute distress Heart: Regular rate Lungs: Clear Abdomen: Normal bowel sounds, Soft Extremities: No clubbing Skin: No breakdown Assessment and Plan Assessmemt and Plan Problems Medical Problems: (1) AMS (altered mental status) Status: Acute (2) Leukocytosis Status: Acute Comment Review of Relevant I have reviewed the following items isreal (where applicable) has been applied. Medications: Current Medications Medications (Trade) Dose Ordered Sig/Sumit Route PRN Reason Start Time Stop Time Status Last Admin Dose Admin Amoxicillin/ Clavulanate Potassium (Augmentin 875/ 125mg) 1 tab BID PO 07/20/20 21:00 07/21/20 09:07 Clonazepam (KlonoPIN) 1 mg PRN BID PRN PO ANXIETY / AGITATION 07/21/20 10:00 07/21/20 10:53 Justifications for Admission Other Justification acute electrolyte imbalance, metabolic encephalopathy, sepsis KRISSY JUNIOR MD Jul 21, 2020 14:09
[2020-07-21 14:13] LABS: HISTOPLASMA AG URINE <0.5 (<0.5 ng/mL)
[2020-07-21 15:00] VITALS: BP 148/78
[2020-07-21] MEDS: ONDANSETRON PF 4 MG/2 ML VIAL. IV PRN (16:17)
[2020-07-21 19:52] VITALS: BP 120/66
[2020-07-21] MEDS: MIRTAZAPINE 15 MG TABLET PO SCH (20:35)
[2020-07-21] MEDS: GABAPENTIN 400 MG CAPSULE. PO SCH (20:36)
[2020-07-21 23:11] VITALS: BP 97/49
[2020-07-22 02:22] VITALS: BP 123/65
[2020-07-22] MEDS: IV DEXTROSE 5 %-0.45 % NACL 1,000 ML IV SCH (05:58)
[2020-07-22] MEDS: LEVOTHYROXINE 100 MCG TABLET PO SCH (05:58)
[2020-07-22] MEDS: PANTOPRAZOLE 40 MG TABLET.DR. PO SCH (05:58)
[2020-07-22 07:00] VITALS: BP 147/69
[2020-07-22] MEDS: LIPASE/PROTEAS/AMYLAS 10/32/42 CAPSULE.DR. PO SCH ×2 (08:06→11:53)
[2020-07-22] MEDS: POTASSIUM CHLORIDE 20 MEQ TABLET.ER. PO SCH (08:06)
[2020-07-22] MEDS: ASPIRIN ENTERIC COATED 81 MG TABLET.DR. PO SCH (08:06)
--- NOTE | 2020-07-22 08:07 | PDOC ---
[employer] PROGRESS NOTE Date of Service DOS: DATE: 07/22/20 TIME: 08:05 Chief Complaint Chief Complaint 1. acute metabolic encephalopathy, with altered mentation, new, already improving 2. hypoxic respiratory failure, improved 3. sepsis, 4. recent Septic shock, 5. Acute kidney injury, vasomotor nephropathy on CKD 4 History of Present Illness History of Present Illness 07/22: Afebrile. No complaints this morning. Had discussion with Dr. Mendoza, patient stable for discharge from pulmonology standpoint. Will discharge on full course treatment of Augmentin twice daily. Accepted at SNU. Greater than 30 minutes spent managing discharge this patient. 07/21: Patient seen and evaluated. Afebrile, breathing on room air. S/p BAL, gram stain negative with no growth on cultures to date. PT recommending SNU. Referral placed and pending acceptance. 07/20: Patient seen s/p bronchoscopy. Report reviewed, normal findings on bronch. Await BAL results. She is afebrile, denies chest pain or SOB. Continue current antibiotic regimen, per ID. 07/19: Patient seen and evaluated. Afebrile, currently breathing on room air. Bronchoscopy planned for today. Continue IV antibiotics, per ID. Charts and labs reviewed, discussed with RN. 07/18/2020 - pt seen and examined at bedside - discussed pt care with RN - pt on IV Abx - discussed bronchoscopy with pt which is planned to happen tomorrow - pt asked for continuation of home med Klonopin 1mg PO BID Vitals/I&O Vitals/I&O: Vital Signs Date Time Temp Pulse Resp B/P (MAP) Pulse Ox O2 Delivery O2 Flow Rate FiO2 07/22/20 02:22 98.0 74 18 123/65 (84) 94 Room Air 98.0 I & O 07/21/20 07/21/20 07/22/20 15:00 23:00 07:00 Intake Total 1000 ml 300 ml Balance 1000 ml 300 ml Physical Exam Physical Exam: GENERAL: Alert female, not in any distress. eating again HEENT: Both pupils are round and reacting. No conjunctival lesion, no lesion in the mouth. NECK: Supple, no JVP, no lymphadenopathy. LUNGS: Clear to auscultation and percussion. HEART: S1, S2 regular. ABDOMEN: Soft, nontender, no organomegaly. PEG clean EXTREMITIES: No edema, cyanosis. Dressing over clean scab LLE SKIN: Unremarkable. NEUROLOGIC: The patient is alert, awake and appropriate. Does have poor memory, but she is able to move all the extremities. General: Alert, Cooperative, No acute distress Heart: Regular rate Lungs: Clear Abdomen: Normal bowel sounds, Soft Extremities: No clubbing Skin: No breakdown Assessment and Plan Assessmemt and Plan Problems Medical Problems: (1) AMS (altered mental status) Status: Acute (2) Leukocytosis Status: Acute Comment Review of Relevant I have reviewed the following items isreal (where applicable) has been applied. Medications: Current Medications Medications (Trade) Dose Ordered Sig/Sumit Route PRN Reason Start Time Stop Time Status Last Admin Dose Admin Clonazepam (KlonoPIN) 1 mg PRN BID PRN PO ANXIETY / AGITATION 07/21/20 10:00 07/21/20 22:47 Justifications for Admission Other Justification acute electrolyte imbalance, metabolic encephalopathy, sepsis KRISSY JUNIOR MD Jul 22, 2020 08:07
[2020-07-22 08:33] LABS: BASO # 0.1 x10^3/uL (0.0-0.2); BASO % 1 % (0-3); EOS # 0.2 x10^3/uL (0.0-0.7); EOS % 2 % (0-3); HEMATOCRIT 25.5 % (36.0-47.0); HEMOGLOBIN 8.1 g/dL (12.0-15.5); LYMPH # 3.6 x10^3/uL (1.0-4.8); LYMPH % 38 % (24-48); MEAN CORPUSCULAR HEMOGLOBIN 30 pg (25-35); MEAN CORPUSCULAR HGB CONC 32 g/dL (31-37); MEAN CORPUSCULAR VOLUME 95 fL (79-100); MONO # 0.6 x10^3/uL (0.0-1.1); MONO % 7 % (0-9); NEUT # 4.9 x10^3/uL (1.8-7.7); NEUT % 53 % (31-73); PLATELET COUNT 225 x10^3/uL (140-400); RED BLOOD COUNT 2.68 x10^6/uL (3.50-5.40); RED CELL DISTRIBUTION WIDTH 15.3 % (11.5-14.5); WHITE BLOOD COUNT 9.4 x10^3/uL (4.0-11.0)
[2020-07-22 08:47] LABS: CALCIUM 8.2 mg/dL (8.5-10.1); CREATININE 1.3 mg/dL (0.6-1.0); POTASSIUM 3.8 mmol/L (3.5-5.1)
[2020-07-22] MEDS: SODIUM BICARBONATE 650 MG TABLET. PO SCH ×2 (09:16→13:43)
[2020-07-22] MEDS: CALCIUM CARB/VIT D3 500/200 TABLET. PO SCH (09:16)
[2020-07-22] MEDS: AMOXICILLIN/K CLAV 875/125MG TABLET. PO SCH (09:17)
[2020-07-22] MEDS: ARIPiprazole 5 MG TABLET PO SCH (09:17)
[2020-07-22] MEDS: buPROPion XL 150 MG TAB.ER.24H. PO SCH (09:17)
[2020-07-22] MEDS: METOPROLOL TART IMMED RELEASE 25 MG TABLET. PO SCH (09:18)
[2020-07-22] MEDS: FERROUS SULFATE 325 MG TABLET. PO SCH (09:18)
[2020-07-22] MEDS: CITALOPRAM 20 MG TABLET. PO SCH (09:18)
[2020-07-22] MEDS: FUROSEMIDE 40 MG TABLET. PO SCH (09:19)
[2020-07-22] MEDS: LACTOBACILLUS RHAMNOSUS GG 1 CAPSULE. PO SCH (09:19)
[2020-07-22] MEDS: MULTIVITAMIN with MINERAL TABLET. PO SCH (09:19)
[2020-07-22] MEDS: predniSONE 10 MG TABLET PO SCH (09:19)
[2020-07-22] MEDS: clonazePAM 0.5 MG TABLET PO PRN (09:21)
--- NOTE | 2020-07-22 09:23 | PDOC ---
Infectious Disease Note Subjective Subjective Feeling well. No F/C/S/N/D/SOA/rash or pain Vital Sign Vital Signs Vital Signs Date Time Temp Pulse Resp B/P (MAP) Pulse Ox O2 Delivery O2 Flow Rate FiO2 07/22/20 09:18 76 147/69 07/22/20 08:00 Room Air 07/22/20 07:00 98.4 16 96 98.4 Physical Exam PHYSICAL EXAM GENERAL: Alert female, not in any distress. eating again HEENT: Both pupils are round and reacting. No conjunctival lesion, no lesion in the mouth. NECK: Supple, no JVP, no lymphadenopathy. LUNGS: Clear to auscultation and percussion. HEART: S1, S2 regular. ABDOMEN: Soft, nontender, no organomegaly. PEG clean EXTREMITIES: No edema, cyanosis. Dressing over clean scab LLE SKIN: Unremarkable. NEUROLOGIC: The patient is alert, awake and appropriate. Does have poor memory, but she is able to move all the extremities. Labs Lab Laboratory Tests Test 07/22/20 07:20 White Blood Count 9.4 x10^3/uL (4.0-11.0) Red Blood Count 2.68 x10^6/uL (3.50-5.40) Hemoglobin 8.1 g/dL (12.0-15.5) Hematocrit 25.5 % (36.0-47.0) Mean Corpuscular Volume 95 fL (79-100) Mean Corpuscular Hemoglobin 30 pg (25-35) Mean Corpuscular Hemoglobin Concent 32 g/dL (31-37) Red Cell Distribution Width 15.3 % (11.5-14.5) Platelet Count 225 x10^3/uL (140-400) Neutrophils (%) (Auto) 53 % (31-73) Lymphocytes (%) (Auto) 38 % (24-48) Monocytes (%) (Auto) 7 % (0-9) Eosinophils (%) (Auto) 2 % (0-3) Basophils (%) (Auto) 1 % (0-3) Neutrophils # (Auto) 4.9 x10^3/uL (1.8-7.7) Lymphocytes # (Auto) 3.6 x10^3/uL (1.0-4.8) Monocytes # (Auto) 0.6 x10^3/uL (0.0-1.1) Eosinophils # (Auto) 0.2 x10^3/uL (0.0-0.7) Basophils # (Auto) 0.1 x10^3/uL (0.0-0.2) Sodium Level 141 mmol/L (136-145) Potassium Level 3.8 mmol/L (3.5-5.1) Chloride Level 110 mmol/L (98-107) Carbon Dioxide Level 23 mmol/L (21-32) Anion Gap 8 (6-14) Blood Urea Nitrogen 13 mg/dL (7-20) Creatinine 1.3 mg/dL (0.6-1.0) Estimated GFR (Cockcroft-Gault) 40.0 Glucose Level 70 mg/dL (70-99) Calcium Level 8.2 mg/dL (8.5-10.1) Micro Microbiology 07/14/20 Blood Culture - Preliminary, Resulted NO GROWTH AFTER 1 DAY Objective Assessment 1. Fever. 2. Leukocytosis. 3. Pulmonary infiltrate with a tree-in-bud opacity as well as a possible cavitation. 4. Abnormal urinalysis, although no other urinary symptoms. 5. Debility and self-care problem. 6. Suspected mild dementia. Plan Plan of Care po augmentin, f/u with Dr Mendoza , and will be happy to see if needed supportive care and we will talk to the DREW ASTORGA MD Jul 22, 2020 09:23
--- NOTE | 2020-07-22 10:14 | PDOC ---
PULMONARY PROGRESS NOTES DATE: 07/22/20 TIME: 10:12 Subjective Remains on Room air Denies any shortness of breath, or cough no overnight events Vitals Vital Signs Date Time Temp Pulse Resp B/P (MAP) Pulse Ox O2 Delivery O2 Flow Rate FiO2 07/22/20 09:18 76 147/69 07/22/20 08:00 Room Air 07/22/20 07:00 98.4 16 96 98.4 ROS: No Nausea, No Chest Pain, No Abdominal Pain, No Increase Cough General: Alert, Oriented X4 Lungs: Clear Cardiovascular: S1, S2 Abdomen: Soft Neuro Exam: Alert, Oriented Extremities: No Edema Skin: Warm, Dry Labs Laboratory Tests Test 07/22/20 07:20 White Blood Count 9.4 x10^3/uL (4.0-11.0) Red Blood Count 2.68 x10^6/uL (3.50-5.40) Hemoglobin 8.1 g/dL (12.0-15.5) Hematocrit 25.5 % (36.0-47.0) Mean Corpuscular Volume 95 fL (79-100) Mean Corpuscular Hemoglobin 30 pg (25-35) Mean Corpuscular Hemoglobin Concent 32 g/dL (31-37) Red Cell Distribution Width 15.3 % (11.5-14.5) Platelet Count 225 x10^3/uL (140-400) Neutrophils (%) (Auto) 53 % (31-73) Lymphocytes (%) (Auto) 38 % (24-48) Monocytes (%) (Auto) 7 % (0-9) Eosinophils (%) (Auto) 2 % (0-3) Basophils (%) (Auto) 1 % (0-3) Neutrophils # (Auto) 4.9 x10^3/uL (1.8-7.7) Lymphocytes # (Auto) 3.6 x10^3/uL (1.0-4.8) Monocytes # (Auto) 0.6 x10^3/uL (0.0-1.1) Eosinophils # (Auto) 0.2 x10^3/uL (0.0-0.7) Basophils # (Auto) 0.1 x10^3/uL (0.0-0.2) Sodium Level 141 mmol/L (136-145) Potassium Level 3.8 mmol/L (3.5-5.1) Chloride Level 110 mmol/L (98-107) Carbon Dioxide Level 23 mmol/L (21-32) Anion Gap 8 (6-14) Blood Urea Nitrogen 13 mg/dL (7-20) Creatinine 1.3 mg/dL (0.6-1.0) Estimated GFR (Cockcroft-Gault) 40.0 Glucose Level 70 mg/dL (70-99) Calcium Level 8.2 mg/dL (8.5-10.1) Procalcitonin < 0.10 ng/mL (0.00-0.10) Laboratory Tests Test 07/22/20 07:20 White Blood Count 9.4 x10^3/uL (4.0-11.0) Red Blood Count 2.68 x10^6/uL (3.50-5.40) Hemoglobin 8.1 g/dL (12.0-15.5) Hematocrit 25.5 % (36.0-47.0) Mean Corpuscular Volume 95 fL (79-100) Mean Corpuscular Hemoglobin 30 pg (25-35) Mean Corpuscular Hemoglobin Concent 32 g/dL (31-37) Red Cell Distribution Width 15.3 % (11.5-14.5) Platelet Count 225 x10^3/uL (140-400) Neutrophils (%) (Auto) 53 % (31-73) Lymphocytes (%) (Auto) 38 % (24-48) Monocytes (%) (Auto) 7 % (0-9) Eosinophils (%) (Auto) 2 % (0-3) Basophils (%) (Auto) 1 % (0-3) Neutrophils # (Auto) 4.9 x10^3/uL (1.8-7.7) Lymphocytes # (Auto) 3.6 x10^3/uL (1.0-4.8) Monocytes # (Auto) 0.6 x10^3/uL (0.0-1.1) Eosinophils # (Auto) 0.2 x10^3/uL (0.0-0.7) Basophils # (Auto) 0.1 x10^3/uL (0.0-0.2) Sodium Level 141 mmol/L (136-145) Potassium Level 3.8 mmol/L (3.5-5.1) Chloride Level 110 mmol/L (98-107) Carbon Dioxide Level 23 mmol/L (21-32) Anion Gap 8 (6-14) Blood Urea Nitrogen 13 mg/dL (7-20) Creatinine 1.3 mg/dL (0.6-1.0) Estimated GFR (Cockcroft-Gault) 40.0 Glucose Level 70 mg/dL (70-99) Calcium Level 8.2 mg/dL (8.5-10.1) Procalcitonin < 0.10 ng/mL (0.00-0.10) Medications Active Scripts Medications Dose Route/Sig Max Daily Dose Days Date Category Cephalexin 250 Mg Capsule 500 Mg PO TID 07/06/20 Rx Metoprolol Tartrate 25 Mg Tablet 25 Mg PO BID 07/06/20 Rx Gabapentin (Gabapentin) 400 Mg Capsule 1,200 Mg PO QHS 30 07/06/20 Rx Aspirin Ec (Aspirin) 81 Mg Tablet. 81 Mg PO DAILYWBKFT 07/06/20 Rx Selenium 200 Mcg Capsule 0.5 Cap PO DAILY 30 07/01/20 Reported Marcia Stewart 36,000 Units Capsule (Lipase/Protease/Amylase) 1 Each Capsule. 1 Each PO TIDAC 07/01/20 Reported Zofran (Ondansetron Hcl) 4 Mg Tablet 1 Tab PO Q8HRS 07/01/20 Reported Mirtazapine 30 Mg Tablet 1 Tab PO QHS 07/01/20 Reported Levothyroxine (Levothyroxine Sodium) 100 Mcg Capsule 100 Mcg PO DAILY 07/01/20 Reported Ferrous Sulfate 325 Mg Tablet 1 Tab PO DAILY 07/01/20 Reported Vitamin D2 (Ergocalciferol (Vitamin D2)) 1,250 Mcg Capsule 1,250 Mcg PO DAILY 07/01/20 Reported Clonazepam 1 Mg Tablet 1 Mg PO BID 07/01/20 Reported Wellbutrin Xl (Bupropion Hcl) 300 Mg Tab.er.24h 1 Tab PO DAILY 07/01/20 Reported Abilify (Aripiprazole) 30 Mg Tablet 1 Tab PO DAILY 30 07/01/20 Reported Tylenol (Acetaminophen) 325 Mg Tablet 650 Mg PO PRN Q4HRS PRN 30 09/17/18 Rx Furosemide 40 Mg Tablet 40 Mg PO DAILY 30 09/17/18 Rx Senna-Time S Tablet (Sennosides/Docusate Sodium) 1 Each Tablet 2 Tab PO PRN BID PRN 30 09/17/18 Rx Calcium + Vitamin D Tablet (Calcium Carbonate/Vitamin D3) 1 Each Tablet 2 Each PO DAILY 09/14/18 Reported Multivitamins (Multivitamin) 1 Each Tablet 1 Tab PO DAILY 09/14/18 Reported Sodium Bicarbonate 650 Mg Tablet 2 Tab PO TID 09/14/18 Reported Omeprazole 40 Mg Capsule.dr 40 Mg PO BID 10/13/13 Reported Citalopram Hbr (Citalopram Hydrobromide) 40 Mg Tablet 20 Mg PO DAILY 10/13/13 Reported Impression . IMPRESSION: 1. Abnormal chest x-ray, abnormal CT chest, revealing several findings consolidation left lower lobe, nodular infiltrates, tree-in-bud opacities. 2. Leukocytosis 3. Mild chronic kidney disease. 4. Hypernatremia per PCP. 5. Mildly increased troponin level. 6. Left lower lobe pneumonia with small effusion Discussion reviewed CT chest, discussed with Dr. Montesinos, infectious disease ser vice. We will proceed with diagnostic bronchoscopy, rule out the possibility of nontuberculous Mycobacterium, MAC. Impression CT chest: 1. Consolidated infiltrate with pleural effusion in the left lower lobe with scattered patchy nodular, tree-in-bud pattern opacities as well as patchy ground glass nodules seen in both lungs. A 1.2 cm nodule in the left apex with questionable cavitation is also present. Infectious etiology is favored. Given cavitary nodule, question of septic emboli is raised. Correlate clinically. Short-term interval follow-up CT chest after appropriate therapy may be obtained to evaluate interval resolution. Plan . stable from respiratory standpoint remains on room air S/P bronchoscopy, gram stain NEG, Follow BAL-- NEG Follow ID recommendations in regards to antibiotics-- continue full course of augmentin Continue steroids with slow taper Follow nephrology recommendations Physical therapy/Occupational Therapy/Speech therapy Social work for DC planning DVT/GI prophylaxis D/W RN OK to D/C today from our standpoint-- F/U in office in August CAROLINA CANNON MD Jul 22, 2020 10:14
[2020-07-22 11:00] VITALS: BP 112/71
--- NOTE | 2020-07-22 11:38 | SNU/HH DC ---
DISCHARGE ORDERS DISCHARGE INFORMATION: DISCHARGE DATE: Jul 22, 2020 FINAL DIAGNOSIS Problems Medical Problems: (1) AMS (altered mental status) Status: Acute (2) Leukocytosis Status: Acute CONDITION ON DISCHARGE: Stable CODE STATUS: Code Status: Full MCFP: SNF STAY <30 DAYS: Yes POST DISCHARGE ORDERS: ACTIVITY ORDERS: Activity as tolerated WEIGHT BEARING STATUS: As tolerated BATHING ORDERS: Shower-keep dressing dry, No Tub Bath until see DIET AFTER DISCHARGE: Cardiac WOUND/INCISION CARE: Keep wound/cast CDI CHECKS AFTER DISCHARGE: CHECKS AFTER DISCHARGE: Check blood press - daily, Check your Temp as needed, Weigh Yourself Daily TREATMENT/EQUIPMENT ORDERS: ADAPTIVE EQUIPMENT NEEDED: Front wheeled walker, Raised toilet seat, Wheelchair Physical Therapy For: Evalulation/Treatment Occupational Therapy For: Evaluation/Treatment Speech Language Pathology For: Evaluation/Treatment DISCHARGE MEDICATIONS: Home Meds Active Scripts Cephalexin (CEPHALEXIN) 250 Mg Capsule, 500 MG PO TID for UTI, complicated, #15 CAP Prov:RONY COOK MD 07/06/20 Metoprolol Tartrate (METOPROLOL TARTRATE) 25 Mg Tablet, 25 MG PO BID for htn, #60 TAB Prov:RONY COOK MD 07/06/20 Gabapentin (GABAPENTIN ) 400 Mg Capsule, 1200 MG PO QHS for chronic pain for 30 Days, #90 CAP Prov:RONY COOK MD 07/06/20 Aspirin (ASPIRIN EC) 81 Mg Tablet.dr, 81 MG PO DAILYWBKFT for cardiac, #100 TAB.SR Prov:RONY COOK MD 07/06/20 Acetaminophen (TYLENOL) 325 Mg Tablet, 650 MG PO PRN Q4HRS PRN for TEMP OVER 100.4F OR MILD PAIN for 30 Days, #120 TAB Prov:EFREN LAL MD 09/17/18 Furosemide (FUROSEMIDE) 40 Mg Tablet, 40 MG PO DAILY for BP for 30 Days, #30 TAB Prov:EFREN LAL MD 09/17/18 Sennosides/Docusate Sodium (SENNA-TIME S TABLET) 1 Each Tablet, 2 TAB PO PRN BID PRN for CONSTIPATION for 30 Days, #60 TAB Prov:EFREN LAL MD 09/17/18 Reported Medications Selenium (SELENIUM) 200 Mcg Capsule, 0.5 CAP PO DAILY for . for 30 Days, #15 CAP 0 Refills 07/01/20 Lipase/Protease/Amylase (DENISE VALDIVIA 36,000 UNITS CAPSULE) 1 Each Capsule.dr, 1 EACH PO TIDAC for malabsorption , CAP 07/01/20 Ondansetron Hcl (ZOFRAN) 4 Mg Tablet, 1 TAB PO Q8HRS for nausea/vomiting, #30 TAB 07/01/20 Mirtazapine (MIRTAZAPINE) 30 Mg Tablet, 1 TAB PO QHS for Antidepressant, #30 TAB 1 Refill 07/01/20 Levothyroxine Sodium (Levothyroxine) 100 Mcg Capsule, 100 MCG PO DAILY for hypothyroid, CAP 07/01/20 Ferrous Sulfate (FERROUS SULFATE) 325 Mg Tablet, 1 TAB PO DAILY for supplement, #30 TAB 3 Refills 07/01/20 Ergocalciferol (Vitamin D2) (Vitamin D2) 1,250 Mcg Capsule, 1250 MCG PO DAILY for supplement, CAP 07/01/20 Clonazepam (CLONAZEPAM) 1 Mg Tablet, 1 MG PO BID for FOR ANXIETY, TAB 07/01/20 Bupropion Hcl (WELLBUTRIN XL) 300 Mg Tab.er.24h, 1 TAB PO DAILY for Depression, #90 TAB 3 Refills 07/01/20 Aripiprazole (ABILIFY) 30 Mg Tablet, 1 TAB PO DAILY for Anxiety for 30 Days, #30 TAB 0 Refills 07/01/20 Calcium Carbonate/Vitamin D3 (CALCIUM + VITAMIN D TABLET) 1 Each Tablet, 2 EACH PO DAILY for vit dif, TAB 09/14/18 Multivitamin (MULTIVITAMINS) 1 Each Tablet, 1 TAB PO DAILY for vit dif., #90 TAB 3 Refills 09/14/18 Sodium Bicarbonate (SODIUM BICARBONATE) 650 Mg Tablet, 2 TAB PO TID for kidney, #60 TAB 5 Refills 09/14/18 Omeprazole (OMEPRAZOLE) 40 Mg Capsule., 40 MG PO BID 10/13/13 Citalopram Hydrobromide (CITALOPRAM HBR) 40 Mg Tablet, 20 MG PO DAILY for depression 10/13/13 KRISSY JUNIOR MD Jul 22, 2020 11:37
[2020-07-22] MEDS ORDERED: AMOX1TAB11 PO (11:49)
[2020-07-22] MEDS ORDERED: POTA20TA4 PO (11:49)
--- NOTE | 2020-07-22 11:55 | PDOC3 ---
Discharge Summary Visit Information Date of Admission: Jul 10, 2020 Date of Discharge: Jul 22, 2020 Final Diagnosis Problems Medical Problems: (1) AMS (altered mental status) Status: Acute (2) Leukocytosis Status: Acute Brief Hospital Course Allergies Allergies Coded Allergies Type Severity Reaction Last Updated Verified hydromorphone Adverse Reaction Intermediate Palpitations 07/19/20 Yes rosuvastatin Adverse Reaction Intermediate Nausea and Vomiting 07/19/20 Yes Vital Signs Vital Signs Date Time Temp Pulse Resp B/P (MAP) Pulse Ox O2 Delivery O2 Flow Rate FiO2 07/22/20 09:18 76 147/69 07/22/20 08:00 Room Air 07/22/20 07:00 98.4 16 96 98.4 Lab Results Laboratory Tests Test 07/22/20 07:20 White Blood Count 9.4 x10^3/uL (4.0-11.0) Red Blood Count 2.68 x10^6/uL (3.50-5.40) Hemoglobin 8.1 g/dL (12.0-15.5) Hematocrit 25.5 % (36.0-47.0) Mean Corpuscular Volume 95 fL (79-100) Mean Corpuscular Hemoglobin 30 pg (25-35) Mean Corpuscular Hemoglobin Concent 32 g/dL (31-37) Red Cell Distribution Width 15.3 % (11.5-14.5) Platelet Count 225 x10^3/uL (140-400) Neutrophils (%) (Auto) 53 % (31-73) Lymphocytes (%) (Auto) 38 % (24-48) Monocytes (%) (Auto) 7 % (0-9) Eosinophils (%) (Auto) 2 % (0-3) Basophils (%) (Auto) 1 % (0-3) Neutrophils # (Auto) 4.9 x10^3/uL (1.8-7.7) Lymphocytes # (Auto) 3.6 x10^3/uL (1.0-4.8) Monocytes # (Auto) 0.6 x10^3/uL (0.0-1.1) Eosinophils # (Auto) 0.2 x10^3/uL (0.0-0.7) Basophils # (Auto) 0.1 x10^3/uL (0.0-0.2) Sodium Level 141 mmol/L (136-145) Potassium Level 3.8 mmol/L (3.5-5.1) Chloride Level 110 mmol/L (98-107) Carbon Dioxide Level 23 mmol/L (21-32) Anion Gap 8 (6-14) Blood Urea Nitrogen 13 mg/dL (7-20) Creatinine 1.3 mg/dL (0.6-1.0) Estimated GFR (Cockcroft-Gault) 40.0 Glucose Level 70 mg/dL (70-99) Calcium Level 8.2 mg/dL (8.5-10.1) Procalcitonin < 0.10 ng/mL (0.00-0.10) Laboratory Tests Test 07/22/20 07:20 White Blood Count 9.4 x10^3/uL (4.0-11.0) Red Blood Count 2.68 x10^6/uL (3.50-5.40) Hemoglobin 8.1 g/dL (12.0-15.5) Hematocrit 25.5 % (36.0-47.0) Mean Corpuscular Volume 95 fL (79-100) Mean Corpuscular Hemoglobin 30 pg (25-35) Mean Corpuscular Hemoglobin Concent 32 g/dL (31-37) Red Cell Distribution Width 15.3 % (11.5-14.5) Platelet Count 225 x10^3/uL (140-400) Neutrophils (%) (Auto) 53 % (31-73) Lymphocytes (%) (Auto) 38 % (24-48) Monocytes (%) (Auto) 7 % (0-9) Eosinophils (%) (Auto) 2 % (0-3) Basophils (%) (Auto) 1 % (0-3) Neutrophils # (Auto) 4.9 x10^3/uL (1.8-7.7) Lymphocytes # (Auto) 3.6 x10^3/uL (1.0-4.8) Monocytes # (Auto) 0.6 x10^3/uL (0.0-1.1) Eosinophils # (Auto) 0.2 x10^3/uL (0.0-0.7) Basophils # (Auto) 0.1 x10^3/uL (0.0-0.2) Sodium Level 141 mmol/L (136-145) Potassium Level 3.8 mmol/L (3.5-5.1) Chloride Level 110 mmol/L (98-107) Carbon Dioxide Level 23 mmol/L (21-32) Anion Gap 8 (6-14) Blood Urea Nitrogen 13 mg/dL (7-20) Creatinine 1.3 mg/dL (0.6-1.0) Estimated GFR (Cockcroft-Gault) 40.0 Glucose Level 70 mg/dL (70-99) Calcium Level 8.2 mg/dL (8.5-10.1) Procalcitonin < 0.10 ng/mL (0.00-0.10) Brief Hospital Course Ms. Armenta is a 75 old male who presented with sepsis, hospital-acquired pneumonia, acute renal insufficiency. CT chest on admission showed consolidated infiltrate with pleural effusion in the left lower lobe with scattered patchy nodular, tree-in-bud pattern opacities as well as patchy ground glass nodules seen in both lungs. Consultations placed to Pulmonology, ID, and nephrology. Patient was treated with IV Zosyn and Zyvox. Had bronchoscopy that showed normal vocal cords, no endobronchial lesions, no purulent material. BAL was performed with negative Gram stain's cultures negative to date. She was transitioned to oral Augmentin. She received IV hydration. She was stable for discharge to SNU to complete outpatient oral antibiotic regimen. Discharge Information Condition at Discharge: Improved Disposition/Orders: D/C to Another Facility Scheduled Amoxicillin/Potassium Clav (Amox Tr-K Clv 875-125 Mg Tab) 1 Each Tablet, 1 TAB PO BID for PNA for 8 Days, #16 Prescribed by: KRISSY JUNIOR MD on 07/22/20 1149 Aripiprazole (Abilify) 30 Mg Tablet, 1 TAB PO DAILY for Anxiety for 30 Days, #30 Ref 0 (Reported) Entered as Reported by: LLUVIA FRITZ on 07/01/20 1058 Last Action: Converted on 07/15/201332 by PATRICIA ROJAS RN Aspirin (Aspirin Ec) 81 Mg Tablet.dr, 81 MG PO DAILYWBKFT for cardiac, #100 Prescribed by: RONY COOK on 07/06/20 1244 Last Action: Continued on 07/15/20 133 by PATRICIA ROJAS RN Bupropion Hcl (Wellbutrin Xl) 300 Mg Tab.er.24h, 1 TAB PO DAILY for Depression, #90 Ref 3 (Reported) Entered as Reported by: LLUVIA FRITZ on 07/01/20 1058 Last Action: Converted on 07/15/201332 by PATRICIA ROJAS RN Calcium Carbonate/Vitamin D3 (Calcium + Vitamin D Tablet) 1 Each Tablet, 2 EACH PO DAILY for vit dif, (Reported) Entered as Reported by: Lluvia Blackwell on 09/14/182007 Last Action: Converted on 07/15/201332 by PATRICIA ROJAS RN Citalopram Hydrobromide (Citalopram Hbr) 40 Mg Tablet, 20 MG PO DAILY for depression, (Reported) Entered as Reported by: NANY WILSON on 10/13/131938 Last Action: Converted on 07/15/201332 by PATRICIA ROJAS RN Clonazepam (Clonazepam) 1 Mg Tablet, 1 MG PO BID for FOR ANXIETY, (Reported) Entered as Reported by: LLUVIA FRITZ on 07/01/201057 Ergocalciferol (Vitamin D2) (Vitamin D2) 1,250 Mcg Capsule, 1,250 MCG PO DAILY for supplement, (Reported) Entered as Reported by: LLUVIA FRITZ on 07/01/20 105 Last Action: Continued on 07/15/201332 by PATRICIA ROJAS RN Ferrous Sulfate (Ferrous Sulfate) 325 Mg Tablet, 1 TAB PO DAILY for supplement, #30 Ref 3 (Reported) Entered as Reported by: LLUVIA FRITZ on 07/01/20 105 Last Action: Continued on 07/15/201332 by PATRICIA ROJAS RN Furosemide (Furosemide) 40 Mg Tablet, 40 MG PO DAILY for BP for 30 Days, #30 Prescribed by: EFREN LAL MD on 09/17/18 1226 Last Action: Continued on 07/15/201332 by PATRICIA ROJAS RN Gabapentin (Gabapentin ) 400 Mg Capsule, 1,200 MG PO QHS for chronic pain for 30 Days, #90 Prescribed by: RONY COOK on 07/06/20 1244 Last Action: Continued on 07/15/201332 by PATRICIA ROJAS RN Levothyroxine Sodium (Levothyroxine) 100 Mcg Capsule, 100 MCG PO DAILY for hypot hyroid, (Reported) Entered as Reported by: LLUVIA FRITZ on 07/01/20 1058 Last Action: Converted on 07/15/201332 by PATRICIA ROJAS RN Lipase/Protease/Amylase (Creon Dr 36,000 Units Capsule) 1 Each Capsule.dr, 1 EACH PO TIDAC for malabsorption , (Reported) Entered as Reported by: LLUVIA FRITZ on 07/01/20 105 Last Action: Converted on 07/15/201332 by PATRICIA ROJAS RN Metoprolol Tartrate (Metoprolol Tartrate) 25 Mg Tablet, 25 MG PO BID for htn, #60 Prescribed by: RONY COOK on 07/06/20 1244 Last Action: Continued on 07/15/201332 by PATRICIA ROJAS RN Mirtazapine (Mirtazapine) 30 Mg Tablet, 1 TAB PO QHS for Antidepressant, #30 Ref 1 (Reported) Entered as Reported by: LLUVIA FRITZ on 07/01/20 105 Last Action: Converted on 07/15/201332 by PATRICIA ROJAS RN Multivitamin (Multivitamins) 1 Each Tablet, 1 TAB PO DAILY for vit dif., #90 Ref 3 (Reported) Entered as Reported by: Lluvia Blackwell on 09/14/182007 Last Action: Converted on 07/15/201332 by PATRICIA ROJAS RN Omeprazole (Omeprazole) 40 Mg Capsule.dr, 40 MG PO BID, (Reported) Entered as Reported by: NANY WILSON on 10/13/132006 Last Action: Converted on 07/15/201332 by PATRICIA ROJAS RN Ondansetron Hcl (Zofran) 4 Mg Tablet, 1 TAB PO Q8HRS for nausea/vomiting, #30 (Reported) Entered as Reported by: LLUVIA FRITZ on 07/01/20 105 Last Action: Converted on 07/15/201332 by PATRICIA ROJAS RN Potassium Chloride (Klor-Con M20) 20 Meq Tab.er.prt, 20 MEQ PO DAILYWBKFT for Hypokalemia, #30 Ref 1 Prescribed by: KRISSY JUNIOR MD on 07/22/20 1149 Selenium (Selenium) 200 Mcg Capsule, 0.5 CAP PO DAILY for . for 30 Days, #15 Ref 0 (Reported) Entered as Reported by: LLUVIA FRITZ on 07/01/20 1058 Last Action: Converted on 07/15/201332 by PATRICIA ROJAS RN Sodium Bicarbonate (Sodium Bicarbonate) 650 Mg Tablet, 2 TAB PO TID for kidney, #60 Ref 5 (Reported) Entered as Reported by: Lluvia Blackwell on 09/14/182007 Last Action: Continued on 07/15/201332 by PATRICIA ROJAS RN Scheduled PRN Acetaminophen (Tylenol) 325 Mg Tablet, 650 MG PO PRN Q4HRS PRN for TEMP OVER 100.4F OR MILD PAIN for 30 Days, #120 Prescribed by: EFREN LAL MD on 09/17/18 1226 Last Action: Continued on 07/15/201332 by PATRICIA ROJAS RN Sennosides/Docusate Sodium (Senna-Time S Tablet) 1 Each Tablet, 2 TAB PO PRN BID PRN for CONSTIPATION for 30 Days, #60 Prescribed by: EFREN LAL MD on 09/17/186 Last Action: Continued on 07/15/201332 by PATRICIA ROJAS RN Discontinued Medications Cephalexin (Cephalexin) 250 Mg Capsule, 500 MG PO TID for UTI, complicated, #15 Prescribed by: RONY COOK on 07/06/20 1253 Justicifation of Admission Dx: Justifications for Admission: Justification of Admission Dx: Yes KRISSY JUNIOR MD Jul 22, 2020 11:55
--- NOTE | 2020-07-22 12:03 | PDOC ---
DATE OF SERVICE DATE: 07/22/20 TIME: 12:02 SUBJECTIVE ROS stable OBJECTIVE Vital Signs Vital Signs Date Time Temp Pulse Resp B/P (MAP) Pulse Ox O2 Delivery O2 Flow Rate FiO2 07/22/20 09:18 76 147/69 07/22/20 08:00 Room Air 07/22/20 07:00 98.4 16 96 98.4 I & 0 Intake and Output 07/22/20 07:00 Intake Total 1300 ml Balance 1300 ml Intake Oral 300 ml IV Total 1000 ml # Voids 6 # Bowel Movements 4 PHYSICAL EXAM Physical Exam GENERAL:NAD HEENT: OM moist NECK: Supple, . LUNGS: Clear to auscultation HEART: S1, S2 regular. ABDOMEN: Soft, nontender, no organomegaly. PEG + EXTREMITIES: No edema, cyanosis. SKIN: Unremarkable. NEUROLOGIC: alert, awake and appropriate Munoz + DIAGNOSIS/ASSESSMENT Assessment & Plan CKD Stage 3B-Cr stable at baseline . Supportive care , avoid nephrotoxins Fever/Leukocytosis. Pulmonary infiltrate with a tree-in-bud opacity as well as a possible cavitation- Bronchoscopy today Abnormal urinalysis, ID following Severe PEM - per Primary COMMENT/RELEVANT DATA Meds Current Medications Medications (Trade) Dose Ordered Sig/Usmit Start Time Stop Time Status Last Admin Dose Admin Acetaminophen (Tylenol) 650 mg PRN Q4HRS PRN 07/15/20 13:30 Cancel Al Hydroxide/Mg Hydroxide (Mylanta Plus Xs) 30 ml PRN DAILY PRN 07/15/20 11:30 Albuterol Sulfate (Ventolin Neb Soln) 2.5 mg PRN 1X PRN 07/19/20 08:00 07/20/20 07:59 DC 07/19/20 10:25 2.5 MG Amoxicillin/ Clavulanate Potassium (Augmentin 875/ 125mg) 1 tab BID 07/20/20 21:00 07/22/20 09:17 1 TAB Amylase/Lipase/ Protease (Zenpep 10,000) 3 cap TIDWMEALS 07/15/20 17:00 07/22/20 11:53 3 CAP Aripiprazole (Abilify) 30 mg DAILY 07/15/20 14:00 07/22/20 09:17 30 MG Aspirin (Ecotrin) 81 mg [id number] 07/15/20 14:00 07/22/20 08:06 81 MG Bupropion HCl (Wellbutrin Xl) 300 mg DAILY 07/15/20 14:00 07/22/20 09:17 300 MG Calcium/Vitamin D (Oscal D 500mg/ 200uts) 2 tab DAILY 07/15/20 14:00 07/22/20 09:16 2 TAB Citalopram Hydrobromide (CeleXA) 20 mg DAILY 07/15/20 14:00 07/22/20 09:18 20 MG Clonazepam (KlonoPIN) 1 mg PRN BID PRN 07/21/20 10:00 07/22/20 09:21 1 MG Daptomycin 350 mg/ Sodium Chloride 50 ml @ 100 mls/hr Q48H 07/17/20 10:00 07/18/20 13:26 DC 07/17/20 15:09 100 MLS/HR Dextrose/Sodium Chloride 1,000 ml @ 75 mls/hr [id number] 07/15/20 11:30 07/22/20 05:58 75 MLS/HR Docusate Sodium (Colace) 100 mg PRN BID PRN 07/15/20 11:30 Enoxaparin Sodium (Lovenox 30mg Syringe) 30 mg Q24H 07/15/20 12:00 07/17/20 11:13 DC 07/16/20 11:58 30 MG Epinephrine HCl (Adrenalin) 1 mg STK-MED ONCE 07/19/20 07:36 07/19/20 07:37 DC Ergocalciferol (Vitamin D2) 50,000 unit Fr 07/16/20 09:00 07/16/20 08:06 50,000 UNIT Ferrous Sulfate (Feosol) 325 mg DAILY 07/15/20 14:00 07/22/20 09:18 325 MG Furosemide (Lasix) 40 mg DAILY 07/15/20 14:00 07/22/20 09:19 40 MG Gabapentin (Neurontin) 1,200 mg QHS 07/15/20 21:00 07/21/20 20:36 1,200 MG Guaifenesin (Robitussin) 200 mg PRN Q4HRS PRN 07/15/20 11:30 Lactobacillus Rhamnosus (Culturelle) 1 cap BID 07/16/20 21:00 07/22/20 09:19 1 CAP Levothyroxine Sodium (Synthroid) 100 mcg DAILY06 07/16/20 06:00 07/22/20 05:58 100 MCG Lidocaine HCl (Lidocaine 1% 20ml Vial) 20 ml STK-MED ONCE 07/19/20 09:57 07/19/20 09:57 DC Lidocaine HCl (Lidocaine 2% Viscous) 100 ml STK-MED ONCE 07/19/20 07:37 07/19/20 07:37 DC Lidocaine HCl (Lidocaine 4% Topical) 50 ml STK-MED ONCE 07/19/20 07:37 07/19/20 07:37 DC Linezolid/Dextrose 300 ml @ 300 mls/hr Q12HR 07/16/20 09:00 07/20/20 10:29 DC 07/20/20 08:40 300 MLS/HR Magnesium Sulfate 50 ml @ 25 mls/hr 1X ONCE 07/18/20 15:00 07/18/20 16:59 DC 07/18/20 15:52 25 MLS/HR Metoprolol Tartrate (Lopressor) 25 mg BID 07/15/20 14:00 07/22/20 09:18 25 MG Mirtazapine (Remeron) 30 mg QHS 07/15/20 21:00 07/21/20 20:35 30 MG Morphine Sulfate (Morphine Sulfate) 4 mg PRN Q2HR PRN 07/14/20 21:15 07/15/20 21:14 DC Multivitamins (Thera M Plus) 1 tab DAILY 07/15/20 14:00 07/22/20 09:19 1 TAB Non-Formulary Medication (Selenium ) 0.5 cap DAILY 07/16/20 09:00 UNV Ondansetron HCl (Zofran Odt) 4 mg PRN Q8HRS PRN 07/19/20 05:45 Ondansetron HCl (Zofran) 4 mg PRN Q4HRS PRN 07/15/20 11:30 07/21/20 16:17 4 MG Pantoprazole Sodium (Protonix) 40 mg BIDAC 07/15/20 16:30 07/22/20 05:58 40 MG Piperacillin Sod/ Tazobactam Sod (Zosyn Per Pharmacy) 1 each PRN DAILY PRN 07/15/20 09:00 07/20/20 10:37 DC Piperacillin Sod/ Tazobactam Sod 2.25 gm/Sodium Chloride 50 ml @ 100 mls/hr Q6HRS 07/15/20 09:00 07/15/20 11:27 DC 07/15/20 09:29 100 MLS/HR Piperacillin Sod/ Tazobactam Sod 3.375 gm/Sodium Chloride 50 ml @ 100 mls/hr Q6HRS 07/15/20 12:00 07/20/20 10:29 DC 07/20/20 05:39 100 MLS/HR Potassium Chloride (Klor-Con) 20 meq 1X ONCE 07/18/20 15:00 07/18/20 15:01 DC 07/18/20 16:03 20 MEQ Prednisone (Prednisone) 30 mg DAILY 07/20/20 11:00 07/22/20 09:19 30 MG Propofol (Diprivan) 200 mg STK-MED ONCE 07/19/20 08:00 07/20/20 12:05 DC Ringer's Solution 1,000 ml @ 75 mls/hr 1X ONCE 07/19/20 08:45 07/19/20 22:04 DC Senna/Docusate Sodium (Senna Plus) 2 tab PRN BID PRN 07/15/20 13:30 Sodium Monofluorophosphate (Fleet Adult) 133 ml PRN DAILY PRN 07/15/20 11:30 Sodium Bicarbonate (Sodium Bicarbonate) 1,300 mg TID 07/15/20 14:00 07/22/20 09:16 1,300 MG Sodium Chloride (Normal Saline Flush) 3 ml QSHIFT PRN 07/15/20 11:30 Sodium Phosphate 15 mmol/Sodium Chloride 105 ml @ 105 mls/hr 1X ONCE 07/17/20 16:30 07/17/20 17:29 DC 07/17/20 19:14 105 MLS/HR Vancomycin HCl 250 ml @ 250 mls/hr 1X ONCE 07/14/20 20:45 07/14/20 21:44 DC 07/15/20 01:52 250 MLS/HR Vitamin A/Vitamin D (Vitamin A & D Ointment) 1 uziel BID 07/15/20 21:00 07/21/20 20:36 1 UZIEL Lab Laboratory Tests Test 07/22/20 07:20 White Blood Count 9.4 x10^3/uL (4.0-11.0) Red Blood Count 2.68 x10^6/uL (3.50-5.40) Hemoglobin 8.1 g/dL (12.0-15.5) Hematocrit 25.5 % (36.0-47.0) Mean Corpuscular Volume 95 fL (79-100) Mean Corpuscular Hemoglobin 30 pg (25-35) Mean Corpuscular Hemoglobin Concent 32 g/dL (31-37) Red Cell Distribution Width 15.3 % (11.5-14.5) Platelet Count 225 x10^3/uL (140-400) Neutrophils (%) (Auto) 53 % (31-73) Lymphocytes (%) (Auto) 38 % (24-48) Monocytes (%) (Auto) 7 % (0-9) Eosinophils (%) (Auto) 2 % (0-3) Basophils (%) (Auto) 1 % (0-3) Neutrophils # (Auto) 4.9 x10^3/uL (1.8-7.7) Lymphocytes # (Auto) 3.6 x10^3/uL (1.0-4.8) Monocytes # (Auto) 0.6 x10^3/uL (0.0-1.1) Eosinophils # (Auto) 0.2 x10^3/uL (0.0-0.7) Basophils # (Auto) 0.1 x10^3/uL (0.0-0.2) Sodium Level 141 mmol/L (136-145) Potassium Level 3.8 mmol/L (3.5-5.1) Chloride Level 110 mmol/L (98-107) Carbon Dioxide Level 23 mmol/L (21-32) Anion Gap 8 (6-14) Blood Urea Nitrogen 13 mg/dL (7-20) Creatinine 1.3 mg/dL (0.6-1.0) Estimated GFR (Cockcroft-Gault) 40.0 Glucose Level 70 mg/dL (70-99) Calcium Level 8.2 mg/dL (8.5-10.1) Procalcitonin < 0.10 ng/mL (0.00-0.10) Results All relevant outside records, renal labs, imaging studies, telemetry/EKG's were reviewed. Justicifation of Admission Dx: Justifications for Admission: Justification of Admission Dx: Yes ELEANOR MAHAN MD Jul 22, 2020 12:03
[2020-07-22] MEDS: VITS A & D/LANOLIN TOPICAL OINTMENT 42GM TUBE. TP SCH (13:44)
--- NOTE | 2020-07-22 15:01 | NUR ---
[facility] I have packed up all patient's belongings and removed patient's IV. Will continue to monitor patient until transportation arrives to transport patient to [facility].
--- NOTE | 2020-07-22 15:30 | NUR ---
Discharge Note: BURAK KOCH Discharge instructions and discharge home medications reviewed with Other facility and a copy given. All questions have been answered and understanding verbalized. The following instructions and handouts were given: discharge instructions, new prescriptions, copy of chart and discharge notes, and patient education. Discontinued lines and drains: Peripheral IV discontinued intact. [facility] Personnel via Wheelchair
== END 2020-07-22 15:47 | DRG 871 ==
LOC: ER 17:04 → 5 NORTH 20:54
PROVIDERS: ADMIT Internal Medicine; ATTEND Internal Medicine
PROC: 0B9F8ZX Drainage of Right Lower Lung Lobe, Via Natural or Artificial Opening Endoscopic, Diagnostic (ICD-10-PCS; 2020-07-19)
PROC: 0B9J8ZX Drainage of Left Lower Lung Lobe, Via Natural or Artificial Opening Endoscopic, Diagnostic (ICD-10-PCS; principal; 2020-07-19 10:00)
DX: A41.59 Other Gram-negative sepsis (principal); G93.41 Metabolic encephalopathy; N17.0 Acute kidney failure with tubular necrosis; E43 Unspecified severe protein-calorie malnutrition; J96.91 Respiratory failure, unspecified with hypoxia; J18.9 Pneumonia, unspecified organism; N39.0 Urinary tract infection, site not specified; E87.0 Hyperosmolality and hypernatremia; N18.4 Chronic kidney disease, stage 4 (severe); E87.6 Hypokalemia; B96.1 Klebsiella pneumoniae [K. pneumoniae] as the cause of diseases classified elsewhere; L89.159 Pressure ulcer of sacral region, unspecified stage; L89.899 Pressure ulcer of other site, unspecified stage; F32.9 Major depressive disorder, single episode, unspecified; Z88.8 Allergy status to other drugs, medicaments and biological substances; Z90.710 Acquired absence of both cervix and uterus; Z68.21 Body mass index [BMI] 21.0-21.9, adult; Z20.822 Contact with and (suspected) exposure to COVID-19; Y95 Nosocomial condition; E03.9 Hypothyroidism, unspecified; F03.90 Unspecified dementia, unspecified severity, without behavioral disturbance, psychotic disturbance, mood disturbance, and anxiety; F41.9 Anxiety disorder, unspecified; G89.29 Other chronic pain; I12.9 Hypertensive chronic kidney disease with stage 1 through stage 4 chronic kidney disease, or unspecified chronic kidney disease; Z79.890 Hormone replacement therapy; Z79.899 Other long term (current) drug therapy; Z82.49 Family history of ischemic heart disease and other diseases of the circulatory system; Z90.49 Acquired absence of other specified parts of digestive tract; Z98.84 Bariatric surgery status; K21.9 Gastro-esophageal reflux disease without esophagitis; M19.90 Unspecified osteoarthritis, unspecified site
CPT/HCPCS: 31622; 36415; 70450; 71045; 71250; 76770; 80048; 80053; 80307; 81001; 82550; 83605; 83735; 83880; 84100; 84145; 84484; 85007; 85025; 87015; 87040; 87070; 87077; 87086; 87102; 87106; 87116; 87205; 87252; 87385; 87801; 87804; 88112; 88305; 88313; 93005; 93925; 94640; 96365; J0878; J1650; J2020; J2405; J2543; J2704; J3370; J3475; J3490; J7042; J7512; U0003; 97110-GO; 97110-GP; 97116-GP; 97530-GO; 97530-GP; 97535-GO; 99285-25; G0378; J7613